=== PATIENT | female | born 1945 | race Caucasian/White ===

== ENCOUNTER 2022-01-13 13:48 | Outpatient (CLI) | payer OTHER, SELFPAY ==
[2022-01-13 16:31] LABS: INR 2.29 (0.91-1.10); Prothrombin Time 25.6 Seconds
== END 2022-01-13 13:49 | disposition home or self-care (01) ==
LOC: LAB 13:52
PROVIDERS: Visit Provider Family Medicine
DX: I48.91 Unspecified atrial fibrillation (principal)
CPT/HCPCS: 36415; 85610

== ENCOUNTER 2024-01-05 12:50 | Outpatient (RCR) | payer OTHER, SELFPAY ==
[2022-02-15 12:04] LABS: INR 1.77 (0.91-1.10)
[2022-02-25 15:55] LABS: INR 2.41 (0.91-1.10); Prothrombin Time 26.6 Seconds
[2022-03-18 11:37] LABS: INR 2.28 (0.91-1.10); Prothrombin Time 25.5 Seconds
[2022-05-12 13:41] LABS: INR 2.38 (0.91-1.10); Prothrombin Time 27.2 Seconds
[2022-06-30 14:04] LABS: INR 2.19 (0.91-1.10); Prothrombin Time 25.5 Seconds
[2022-12-14 14:09] LABS: INR 2.35 (0.91-1.10); Prothrombin Time 26.9 Seconds
[2023-02-09 13:06] LABS: INR 2.44 (0.91-1.10); Prothrombin Time 27.7 Seconds
[2023-03-25 14:27] LABS: INR 2.52 (0.91-1.10); Prothrombin Time 28.4 Seconds
[2023-12-28 12:48] LABS: INR 2.31 (0.91-1.10); Prothrombin Time 27.1 Seconds
[2024-01-05 13:25] LABS: INR 2.67 (0.91-1.10); Prothrombin Time 30.5 Seconds
== END 2024-04-10 14:48 | disposition home or self-care (01) ==
LOC: LAB 12:50
PROVIDERS: Visit Provider Family Medicine
DX: I48.91 Unspecified atrial fibrillation (principal)
CPT/HCPCS: 36415; 85610

== ENCOUNTER 2024-11-22 11:36 | Emergency (ER) | payer OTHER, SELFPAY ==
--- OUTSIDE RECORDS SUMMARY | 2024-10-08 12:00 | XMS_ITS | Encounter Summary ---
Author Organization [facility] Address [address] [address] Care Team Providers Care Cigar Maker Name Role Phone Wilmer Ludwig M.D., M.D. Primary Care Prov ider Unavailable Reason for Visit * Reason Comments VISUAL FIELD TESTING Encounter Details Date Type Department Care Team (Late st Contact Info) Description 10/08/2024 10:00 AM PDT Allied Health/Nurse Visit OPHTHALMOLOGY [address] [place] [address] Sukhi Ortiz [address] [place] [address] VISUAL FIELD TEST Social History Tobacco Use Types Packs/Day Years Used Date Smoking Tobacco: Never Passive Smoke Exposure: Never Smokeless Tobacco: Never Comments:once per week-wine Alcohol Use Standard Drinks/Week Comments Not Currently 1 (1 standard drink = 0.6 oz pur e alcohol) occ Substance Use Types Use/Week Comments No Sex and Gender Information Value Date Recorded Sex Assigned at Not on file Gender Identity Not on file Sexual Orientation Not on file documented as of this encounter Progress Notes * Sukhi Ortiz - 10/08/2024 10:24 AM PDT EXTRACT OPERATOR VISIT Study Being Done: SHARMA VISUAL FIELD 24-2 Patient Name: Saira Fly Belle Age: [age] year old Sex: female Referring Physician: Dr camarillo Verbal/written order per . documented in this encounter Plan of Treatment Upcoming Encounters Date Type Department Care Team (Late st Contact Info) Description 03/05/2025 10:00 AM PDT Office Visit CARDIOLOGY [address] [place] [address] Melanie Osuna (N.P.), N.P. [address] [place] [phone] Pending Results Name Type Priority Associated Diagnoses Date /Time VISUAL FIELD EXAM, EXTENDED Eye Procedures Routine VISUAL FIELD TEST 10/08/2024 10:51 AM PDT documented as of this encounter Visit Diagnoses Diagnosis VISUAL FIELD TEST documented in this encounter Care Teams Cigar Maker Relationship Specialty Start Date End Date Wilmer Ludwig)Richie [address] [phone] PCP - General Family Practice 01/10/14 documented as of this encounter
--- OUTSIDE RECORDS SUMMARY | 2024-10-08 12:45 | XMS_ITS | Encounter Summary ---
Author Organization [facility] Address [address] [place] [address] Care Team Providers Care Hat Conditioner Name Role Phone Wilmer Ludwig) Richie Primary Care Prov ider Unavailable Reason for Visit * Reason Comments OCULAR COHERENCE TOMOGRAPHY Encounter Details Date Type Department Care Team (Late st Contact Info) Description 10/08/2024 10:45 AM PDT Allied Health/Nurse Visit OPHTHALMOLOGY [address] [place] [address] Genna Choudhary [address] [place] [address] SCREENING Social History Tobacco Use Types Packs/Day Years [...] as of this encounter Progress Notes * Genna Choudhary - 10/08/2024 1:29 PM PDT Care Gaps Immunization Care Gaps Covid-19 Immunization Due RSV Immunization Due documented in this encounter Plan of Treatment Upcoming Encounters Date Type Department Care Team (Late st Contact Info) Description 03/05/2025 10:00 AM PDT Office Visit CARDIOLOGY [address] [phone] Melanie Osuna (N.P.), N.P. [address] [place] [phone] Pending Results Name Type Priority Associated Diagnoses Date/Time OCT POSTERIOR SEGMENT BOTH EYES, OPTIC NERVE, INTERP AND RPT (OU) Eye Procedures IPROC Routine SCREENING 10/08/2024 1:29 PM PDT documented as of this encounter Visit Diagnoses Diagnosis SCREENING documented in this encounter Care Teams Hat Conditioner Relationship Specialty Start Date End Date Wilmer Ludwig), Dilma. [address] [phone] PCP - General Family Practice 01/10/14 documented as of this encounter
--- OUTSIDE RECORDS SUMMARY | 2024-10-14 12:00 | XMS_ITS | Encounter Summary ---
Author Organization [facility] Address [address] [place] [address] Care Team Providers Care Government Affairs Fellow Name Role Phone Wilmer Ludwig) Richie Primary Care Prov ider Unavailable Reason for Visit * Reason Comments ABDOMINAL PAIN Since Monday, nausea , Encounter Details Date Type Department Care Team (Late Contact Info) Description 10/14/2024 10:00 AM PDT Office Visit URGENT CARE - [place] [address] [place] [address] [facility] (P.A[facility] P.A. [address] [place] [address] ABDOMINAL PAIN (Primary Dx) Social History Tobacco Use Types Packs/Day Years Used Date Smoking Tobacco: Never Passive Smoke Exposure: Never Smokeless Tobacco: Never Tobacco Cessation:Counseling Given: Not Answered Comments:once per week-wine Alcohol Use Standard Drinks/Week Comments Not Currently 1 (1 standard drink = 0.6 oz pur e alcohol) occ Substance Use Types Use/Week Comments No Sex and Gender Information Value Date Recorded Sex Assigned at Not on file Gender Identity Not on file Sexual Orientation Not on file documented as of this encounter Last Filed Vital Signs Vital Sign Reading Time Taken Comments Blood Pressure 114/61 10/14/2024 9:51 AM PDT Pulse 77 10/14/2024 9:51 AM PDT Temperature 36.4 C (97.6 F) 10/14/2024 9:51 AM PDT Respiratory Rate 20 10/14/2024 9:51 AM PDT Oxygen Saturation 98% 10/14/2024 9:51 AM PDT Inhaled Oxygen Concentration - - Weight 64.4 kg (142 lb) 10/14/2024 9:51 AM PDT Height 160 cm (5' 3) 10/14/2024 9:51 AM PDT Body Mass Index 25.15 10/14/2024 9:51 AM PDT documented in this encounter Progress Notes * Ashok Khan (P.ALamar), P.A. - 10/14/2024 9:23 AM PDT HUMBLE CASTREJON : 1945 PMD: Wilmer Ludwig) Time seen: 9:23 AM 10/14/2024. CC: ABDOMINAL PAIN HPI: Humble Castrejon is a 79 year old female history of Afib on Warfrin, Pacemaker last saw cardiology in08/2024 with complain of left sided abdominal pain x 3 days. had chest pain and shortness of breaththat resolved spontaneously. Symptom is associated with tiredness, decreased appetite, watery diarrhea, mild dry cough, abdominal distention. She is able to pass gas and burp. Denies vomiting, dysuria, fever chills, runny nose congestion; no current chest pain or shortness of breath. Vitals: 10/14/24 0951 BP: 114/61 Pulse: 77 Resp: 20 Temp: 36.4 ??C (97.6 ??F) TempSrc: Temporal SpO2: 98% Weight: 64.4 kg (142 lb) Height: 1.6 m (5' 3) Patient Active Problem List: HTN HYPERLIPIDEMIA HX OF HYSTERECTOMY, TOTAL FHX OF BREAST CANCER MAMMOGRAPHY DONE OUTSIDE IN 2010 Bilat glaucoma. ALLERGIC RHINITIS VITAMIN D DEFICIENCY OSTEOPOROSIS SCREENING COLONOSCOPY COLON POLYP DIVERTICULOSIS OF COLON ATHEROSCLEROSIS AORTA BILATERAL RENAL ARTERY STENOSIS PREDIABETES OVERWEIGHT OSTEOARTHRITIS OF LEFT KNEE SENILE PURPURA DIASTOLIC HEART FAILURE, CHRONIC (HFPEF) OSTEOARTHRITIS OF RIGHT KNEE ATRIAL FIBRILLATION, UNSPECIFIED ANTICOAGULATION MONITORING, INR 2.0-3.0 BILAT PRIMARY OPEN ANGLE GLAUCOMA ATRIAL FIBRILLATION W RAPID VENTRICULAR RESPONSE CKD STAGE 3A (GFR 45-59) OSTEOARTHRITIS OF LEFT HIP HYPOKALEMIA ELEVATED TROPONIN I NOT CURRENT SMOKER HX OF SC, UNSPECIFIED TYPE OSTEOARTHRITIS OF RIGHT FOOT ANEMIA RECURRENT UTI BILAT OPEN ANGLE GLAUCOMA ATYPICAL CHEST PAIN SHORTNESS OF BREATH OSTEOARTHRITIS OF LEFT FOOT ACQUIRED CEREBRAL ATROPHY OSTEOARTHRITIS OF RIGHT HIP Past Medical History: Diagnosis Date HX OF TOTAL HYSTERECTOMY 1981 endometriosis FHX OF BREAST CANCER 08/18/2011 [place]AMMOGRAPHY [place]IDE [place] 201008/18/2011 Glaucoma. 08/18/2011 ALLERGIC RHINITIS 08/18/2011 DUPUYTRENS CONTRACTURE. 08/18/2011 VITAMIN D DEFICIENCY 09/01/2011 SCREENING FOR COLON CANCER 09/16/2011 SCREENING COLONOSCOPY 02/29/2012 SCREENING COLONOSCOPY 02/29/2012 COLON POLYP 02/29/2012 FAMILY STRESS 03/19/2012 HX OF ANEMIA 04/26/2012 DIZZINESS 04/26/2012 ATHEROSCLEROSIS OF AORTA 01/04/2013 STENOSIS OF RENAL ARTERY. 01/04/2013 LEFT PIRIFORMIS SYNDROME 07/05/2013 SKIN LESION 07/05/2013 HX OF CHF 07/29/2013 PREDIABETES 08/12/2013 HYPONATREMIA 01/09/2014 SENILE PURPURA 07/25/2014 ATRIAL FIBRILLATION, UNSPECIFIED 10/21/2015 HTN (HYPERTENSION) HYPERLIPIDEMIA SYNCOPE REVIEW OF SYSTEMS: Review of Systems A 10-point ROS was performed, reviewed, and confirmed by me in this urgent Care. Those systems withpertinent positive or negative responses have been documented in the HPI. All other systems were reviewed and found to be negative or non-contributory. BP 114/61 Pulse 77 Temp 36.4 ??C (97.6 ??F) (Temporal) Resp 20 Ht 1.6 m (5' 3) Wt 64.4 kg (142 lb) SpO2 98% BMI 25.15 kg/m?? Estimated body mass index is 25.15 kg/m?? as calculated from the following: Height as of this encounter: 1.6 m (5' 3). Weight as of this encounter: 64.4 kg (142 lb). Physical Exam Physical Exam Vitals reviewed. Constitutional: General: Patient is not in acute distress. Appearance: Patient is not ill-appearing. HENT: Eye: EXTRAOCULAR MOVEMENTS INTACT. No conjunctival injection, Ear :TMs are normal bilaterally Mouth/Throat: Pharynx: Oropharynx is clear. Cardiovascular: Rate and Rhythm: Normal rate. Pulmonary: Breath sounds: Normal breath sounds. Musculoskeletal: Normal ROM of Extremities no deformities Abdomen: bowel sounds WNL, Soft positive epigastric, left upper quadrant and left lower quadrant and right lower quadrant abdominal tenderness. Negative Rovsing's sign, no peritonitis. Positive left COSTOVERTEBRAL ANGLE TENDERNESS Skin: no rash Neurological: Alert and oriented x 4, GCS 15 URGENT CARE DEPARTMENT COURSE: 12-lead EKG Interpretation by Ashok Khan PA-C: ASSESSMENT MDM 79 years old female history of AFib on warfarin with complaint of left-sided abdominal pain with the associated chest pain shortness of breath, diarrhea and abdominal distention. Shortness of breath and chest pain have resolved spontaneously. Patient's EKG shows AFib RVR with a rate of 178 beats per minute. Patient will be transferred to emergency department for higher level of care and will need to be placed on a monitor. ED physician consulted who accepted patient transfer. DIAGNOSIS/PLAN ABDOMINAL PAIN (primary encounter diagnosis) Plan: URINALYSIS, DIPSTICK, POCT, B-TYPE NATRIURETIC PEPTIDE (BNP), CREATININE, EKG 12 OR MORE LEADS W INT & RPT, ELECTROLYTE PANEL (NA, K, CL, CO2), GLUCOSE, TROPONIN I, HIGH SENSITIVITY, XR CHEST 2 VIEWS, CBC W AUTOMATED DIFFERENTIAL, BUN, LIPASE, LIVER FUNCTION PANEL (TBILI, ALT, ALKP), CT ABD AND PELVIS W CONTRAST, MOUTHWASH: DICYCLOMINE-LIDOCAINE VISC-MYLANTA ORAL SUSP Discharge Instructions: Patient further evaluation, re-evaluation review of lab CT and disposition to be performed by ED physician. Electronically signed by: Familia NINO 10/14/2024 10:46 AM This note was transcribed using computer voice recognition. It is subject to voice recognition/ grammatical errors. documented in this encounter Nursing Notes * Mai Duong (TomyViki Claros - 10/14/2024 10:49 AM PDT @1045-patient transported to ED for higher level of care via wheelchair with at side. MAI OCHOA RN * Keny Stock.VRegine)Aba - 10/14/2024 10:45 AM PDT EKG uploaded, completed and result given to provider waiting orders * Keny StockV.Dorita)Aba - 10/14/2024 10:40 AM PDT Patient unable to complete gi cocktail only had about 25ml * Keny Stock.V.NLamar)Aba - 10/14/2024 9:53 AM PDT LICENSED VOCATIONAL NURSE VISIT NOTES Chief Complaint Patient presents with ABDOMINAL PAIN Since Monday, nausea, BP 114/61 Pulse 77 Temp 36.4 ??C (97.6 ??F) (Temporal) Resp 20 Ht 1.6 m (5' 3) Wt 64.4 kg (142 lb) SpO2 98% BMI 25.15 kg/m?? Outpatient Medications Marked as Taking for the 10/14/24 encounter (Office Visit) with Umah-MgAshok otto (P.A.), P.A. Medication Sig Atorvastatin (LIPITOR) 10 mg Oral Tab Take 1 tablet by mouth daily to lower cholesterol and keep arteries open Lisinopril (PRINIVIL/ZESTRIL) 5 mg Oral Tab Take 1 tablet by mouth daily to control blood pressure and/or prevent strokes and help the heart and kidneys Warfarin 2 mg Oral Tab Take by mouth as directed by Anticoagulation clinic dilTIAZem (CARDIZEM CD) 120 mg Oral 24hr SR Cap Take 1 capsule by mouth 2 times a day Warfarin 2 mg Oral Tab Take 1 and 1/2 tablets by mouth daily except 2 tablets Monday or as directed by the anticoagulation clinic cloNIDine (CATAPRES-TTS 1) 0.1 mg/24 hr TD Weekly Patch Apply 1 Patch to skin every 7 days . Removeold patch before applying the new one dilTIAZem (CARDIZEM) 30 mg Oral Tab Take 1 tablet by mouth up to 3 times a day as needed atrial fibrillation episodes Nitrofurantoin Monohydrate (MACROBID) 100 mg Oral Cap Take 1 capsule by mouth daily Latanoprost (XALATAN) 0.005 % Opht Drop Instill 1 Drop in both eyes daily at bedtime for Glaucoma Dorzolamide-Timolol (COSOPT) 22.3-6.8 mg/mL Opht Drop Instill 1 Drop in both eyes 2 times a day Current Facility-Administered Medications for the 10/14/24 encounter ([facility]) [facility] P.A. Medication Triamcinolone Acetonide Inj 40 mg (KENALOG) Triamcinolone Acetonide Inj 40 mg (KENALOG) Lidocaine (PF) 10 mg/mL (1 %) Inj 2 mg (XYLOCAINE) Lidocaine (PF) 10 mg/mL (1 %) Inj 2 mg (XYLOCAINE) PROACTIVE CARE ACTIONS Proactive Office Encounter Actions: There are no care gaps at this time Proactive Care reviewed with patient. ITZIA MARIA LUISA STOCK SOCIAL WORKER AIDE 9:53 AM documented in this encounter Plan of Treatment Upcoming Encounters Date Type Department Care Team (Late st Contact Info) Description 03/05/2025 10:00 AM PDT Office Visit CARDIOLOGY [address] [place] [address] Melanie Osuna (N.P.), N.P. [address] [place] [address] Scheduled Orders Name Type Priority Associated Diagnoses Orde r Schedule TROPONIN I, HIGH SENSITIVITY Lab STAT ABDOMINAL PAIN Ordered: 10/14/2024 XR CHEST 2 VIEWS Imaging STAT ABDOMINAL PAIN Expected: 10/14/2024, Expires: 04/12/2025 documented as of this encounter Procedures Procedure Name Priority Date/Time Associated Diagnosis Comments LIVER FUNCTION PANEL (TBILI, ALT, ALKP) STAT 10/22/2024 1:16 PM PDT ABDOMINAL PAIN BUN STAT 10/22/2024 1:16 PM PDT ABDOMINAL PAIN LIPASE STAT 10/22/2024 1:16 PM PDT ABDOMINAL PAIN CREATININE STAT 10/22/2024 1:16 PM PDT ABDOMINAL PAIN ELECTROLYTE PANEL (NA, K, CL, CO2) STAT 10/22/2024 1:16 PM PDT ABDOMINAL PAIN CBC W AUTOMATED DIFFERENTIAL STAT 10/22/2024 1:16 PM PDT ABDOMINAL PAIN B-TYPE NATRIURETIC PEPTIDE (BNP) Routine 10/22/2024 1:16 PM PDT ABDOMINAL PAIN WBC AUTO DIFF STAT 10/22/2024 1:16 PM PDT GLUCOSE STAT 10/22/2024 1:16 PM PDT ABDOMINAL PAIN EKG 12 OR MORE LEADS W INT & RPT STAT 10/14/2024 10:30 AM PDT ABDOMINAL PAIN URINALYSIS, DIPSTICK, POCT Routine 10/14/2024 10:11 AM PDT ABDOMINAL PAIN documented in this encounter Results * (ABNORMAL) WBC AUTO DIFF (10/22/2024 1:16 PM PDT) NEUTROPHILS %, AUTOMATED COUNT 79.3 [facility] LYMPHOCYTES %, AUTOMATED COUNT 10.7 [facility] MONOS %, AUTO 6.1 [facility] EOSINOPHILS %, AUTOMATED COUNT 1.6 [facility] BASOPHILS %, AUTOMATED COUNT 0.6 [facility] IMMATURE GRANULOCYTES %, AUTOMATED COUNT 2 [facility] RBC NUCLEATED AUTO COUNT, BLD 0 <=0 % [facility] NEUTROPHILS, ABSOLUTE, AUTOMATED COUNT 8.50(H) 1.80 - 7.70 x1000/mcL [facility] LYMPHOCYTES, AUTOMATED COUNT 1.15 1.00 - 3.60 x1000/mcL [facility] MONOCYTES, AUTOMATED COUNT 0.65 0.10 - 1.00 x1000/mcL [facility] EOSINOPHILS, AUTOMATED COUNT 0.17 0.00 - 0.70 x1000/mcL [facility] BASOPHILS, AUTOMATED COUNT 0.06 0.00 - 0.20 x1000/mcL [facility] IMMATURE GRANULOCYTES, AUTOMATED COUNT 0.18(H) 0.01 - 0.09 x1000/mcL [facility] BLOOD / Unknown 10/22/2024 1 :16 PM PDT Narrative [facility] - 10/22/2024 7:50 PM PDT [facility] ACCN: [id number] Ashok Batres (P.A.) Rico-Mgborogrichardu P. A. HEMATOLOGY [facility] [address] [place] [address] * LIVER FUNCTION PANEL (TBILI, ALT, ALKP) (10/22/2024 1:16 PM PDT) ALT 14 <=54 U/L [facility] ALKALINE PHOSPHATASE 50 <=125 U/L [facility] BILIRUBIN, TOTAL 0.6 <=1.0 mg/dL [facility] BLOOD / Unknown 10/22/2024 1 :16 PM PDT Narrative [facility] - 10/22/2024 7:47 PM PDT [facility] ACCN: [id number] Ashok Tocannamariekwu (P.A.) Umah-Mgborogwu P. A. SERUM CHEMISTRY [facility] [address] [address] * LIPASE (10/22/2024 1:16 PM PDT) LIPASE 39 <=58 U/L [facility] BLOOD / Unknown 10/22/2024 1 :16 PM PDT Narrative [facility] - 10/22/2024 7:47 PM PDT [facility] ACCN: [id number] Ashok Kitchenkwu (P.A.) Umah-Mgborogwu P. A. SERUM CHEMISTRY Performing Organization Address City/[facility]/ZIP Co de Phone Number [facility] [address] [place] [place] [address] * BUN (10/22/2024 1:16 PM PDT) BUN 9 <=18 mg/dL [facility] BLOOD / Unknown 10/22/2024 1 :16 PM PDT Narrative [facility] - 10/22/2024 7:40 PM PDT [facility] ACCN: [id number] Ashok Tocannamariekwu (P.A.) Umah-Mgborogwu P. A. SERUM CHEMISTRY [facility] [address] [place] [address] * (ABNORMAL) CBC W AUTOMATED DIFFERENTIAL (10/22/2024 1:16 PM PDT) Pathologist [facility] WBC'S AUTO 10.7 4.0 - 11.0 x1000/mcL [facility] RBC, AUTO 3.75 3.70 - 5.20 Mill/mcL [facility] HGB 10.5(L) 11.5 - 16.0 g/dL [facility] HCT, AUTO 31.4(L) 35.0 - 47.0 % [facility] MCV 83.7 81.0 - 99.0 fL [facility] MCH 28.0 25.0 - 35.0 pg/cell [facility] MCHC 33.4 30.0 - 35.0 g/dL [facility] RDW, BLOOD 14.3 11.5 - 16.0 % [facility] PLATELETS, AUTOMATED COUNT 569(H) 130 - 400 x1000/mcL [facility] BLOOD / Unknown 10/22/2024 1 :16 PM PDT Narrative [facility] - 10/22/2024 7:50 PM PDT [facility] ACCN: [id number] Ashok Batres (P.A.) Rico-Mgborogwu P. A. HEMATOLOGY [facility] [address] [place] [address] * GLUCOSE (10/22/2024 1:16 PM PDT) [facility] GLUCOSE, RANDOM 107 70 - 140 mg/dL [facility] BLOOD / Unknown 10/22/2024 1 :16 PM PDT Narrative [facility] - 10/22/2024 7:40 PM PDT [facility] ACCN: [id number] Ashok Lorenzou (P.A.) Umah-Mgborogwu P. A. SERUM CHEMISTRY [facility] [address] [place] [address] * (ABNORMAL) ELECTROLYTE PANEL (NA, K, CL, CO2) (10/22/2024 1:16 PM PDT) SODIUM 127(L) 135 - 145 mEq/L [facility] POTASSIUM 3.8 3.5 - 5.0 mEq/L [facility] CHLORIDE 93(L) 101 - 111 mEq/L [facility] CO2 22 21 - 31 mEq/L [facility] BLOOD / Unknown 10/22/2024 1 :16 PM PDT Narrative [facility] - 10/22/2024 7:40 PM PDT [facility] ACCN: [id number] Ashok Batres (P.A.) JamarMgtobyogarmani P. A. SERUM CHEMISTRY [facility] [address] [employer] [facility] [place] [address] * CREATININE (10/22/2024 1:16 PM PDT) CREATININE 0.91 <=1.10 mg/dL [facility] EGFR, CREATININE-BASED FORMULA (CKD-EPI 2020) 64 >=60 mL/min/BS A [facility] Comment: GFR estimate is by the CKD-EPI 202 equation which uses age, sex, and serum creatinine. GFR estimate is less reliable if on dialysis or if acute kidney injury. Additional advice for the provider is available in Renal Failure Risk Assessment below. CKD Categorization by GFR & ACR (urine Albumin/Creatinine Ratio) GFR >3 months ACR <30(A1) ACR 30-<300(A2) ACR 300+(A3) >=90 CKD1 A2 or * CKD1 A3 60-<90 CKD2 A2 or * CKD2 A3 45-<60 CKD3a A1 or * CKD3a A2 CKD3 A3 30-<45 CKD3b A1 CKD3b A2 CKD3 A3 15-<30 CKD4 A1 CKD4 A2 CKD4 A3 <15 CKD5 A1 CKD5 A2 CKD5 A3 * or may label a bnormal kidney function or p roteinuria as appropriate. BLOOD / Unknown 10/22/2024 1 :16 PM PDT Narrative [facility] - 10/22/2024 7:42 PM PDT [facility] ACCN: [id number] Ashok Gisel (P.A.) Umaide-Mgborogwu P. A. SERUM CHEMISTRY Performing Organization Address [facility] de Phone Number [facility] [address] [address] * (ABNORMAL) B-TYPE NATRIURETIC PEPTIDE (BNP) (10/22/2024 1:16 PM PDT) B TYPE NATRIURETIC PEPTIDE 820(H) <=99 pg/mL [facility] Comment: Less than 100: Not likely heart failure 100-500: Indeterminate range Greater than 500: Heart failure likely For Indeterminate results, one must consider the following: Baseline BNP value elevated due to stable underlying dysfunction; right ventricular failure present from COR Pulmonale; Acute pulmonary embolism or renal failure. BLOOD / Unknown 10/22/2024 1 :16 PM PDT Narrative [facility] - 10/22/2024 7:27 PM PDT [facility] ACCN: [id number] Ashok Gisel (P.A.) Umaide-Mgborogwu P. A. SERUM CHEMISTRY Performing Organization Address [facility] de Phone Number [facility] [address] [employer] [place] [address] * EKG 12 OR MORE LEADS W INT & RPT (10/14/2024 10:30 AM PDT) VENTRICULAR RATE 178 BPM SCAL EKG INTERFACE ATRIAL RATE 182 BPM SCAL EKG INTERFACE LA INTERVAL 146 ms SCAL EKG INTERFACE QRS INTERVAL 74 ms SCAL EK G INTERFACE QT INTERVAL 260 ms SCAL EKG INTERFACE QT CORRECTED 447 ms SCAL EK G INTERFACE FRONTAL AXIS: P 60 degrees SCAL EKG INTERFACE RIGHT AXIS 41 degrees SCAL EKG INTERFACE FRONTAL AXIS:T 259 degrees SCAL EKG INTERFACE DIAGNOSIS LINES Afib RVR Marked ST abnormality, possible inferior subendocardial injury Abnormal ECG SCAL EKG INTERFACE 10/14/2024 10:3 0 AM PDT 10/17/2024 3:38 PM PDT Ashok Batres (P.A.) JamarMgclarita P. A. CV EKG SCAL EKG INTERFACE * URINALYSIS, DIPSTICK, POCT (10/14/2024 10:11 AM PDT) Narrative Keny Stock (L.V.N.), L.V.N. - 10/14/2024 10:11 AM PDT URINE DIPSTICK, POCT GLUCOSE: Neg Reference Range: Negative KETONES: 15 mg/dL Reference Range: Negative SP. GRAVITY: 1.015 Reference Range: 1.005-1.030 BLOOD: Neg Reference Range: Negative PH: 6.5 Reference Range: 5.0 - 8.0 PROTEIN: 100 mg/dL (2+) Reference Range: Negative/Trace NITRITE: Negative Reference Range: Negative LEUKOCYTES: Negative Reference Range: Negative LOT#:[id number] Expiration Date:09/30/25 Date/Time: 10/14/2024 10:11 AM Performed by: KENY STOCK [facility] [address] [address] TOBACCO BALER: [facility] Med Office - Yolanda Prescott D.O. Ashok Batres (P.A.) Bill P. A. POCT documented in this encounter Visit Diagnoses Diagnosis ABDOMINAL PAIN- Primary documented in this encounter Administered Medications Inactive Administered Medications - up to 3 most recent administrations Medication Order MAR Action Action Date Dose Rate Site Mouthwash:Stlmtil-Zlkczdqbwun-Jzd ocaine Visc. Oral Susp 50 mL 50 mL, Oral, ONE TIME, 1 dose, On Mon10/14/24 at 1030, 30:10:10 ml Mylanta:Dicyclomine:Lidocaine oral suspension Given 10/14/2024 10:32 AM PDT 50 mL Selina gallardo documented in this encounter Care Teams Government Affairs Fellow Relationship Specialty Start Date End Date Wilmer Ludwig M.D., M.D. [address] [phone] PCP - General Family Practice 01/10/14 documented as of this encounter
--- OUTSIDE RECORDS SUMMARY | 2024-10-14 12:54 | XMS_ITS | Encounter Summary ---
Author Organization [facility] Address [address] [place] [address] Care Team Providers Care Inventory Technician Name Role Phone Wilmer Ludwig M.D., M.D. Primary Care Prov ider Unavailable Reason for Referral * (Emergency) Specialty Diagnoses / Procedures Referred By Contac t Referred To Contact [facility] [address] [address] [place] [address] Phone: [phone] Referral ID Status Reason Start Date Expiration Date V isits Requested Visits Authorized Specialty Services Required Question Answer Result Release to patient? Immediate Comments Reason for Consult: afib rvr, pacemaker * (Emergency) Specialty Diagnoses / Procedures Referred By Contac t Referred To Contact [facility] [address] [address] [place] [address] Phone: [phone] Referral ID Status Reason Start Date Expiration Date V isits Requested Visits Authorized Specialty Services Required Question Answer Result Release to patient? Immediate Comments Reason for Consult: ATRIAL FIBRILLATION WITH RAPID VENTRICULAR RESPONSE with nonsustained run of VT Reason for Visit * Reason Comments CHEST PAIN Patient presented to Urgent Care for abdominal and chest pain and SOB. Initially with HR in 70s, EKG found to be in a fib with RVR with a rate of 178, BP stable (Pt with h/o a fib on coumadin). Labs and imaging ordered by Urgent Care. No meds given. BT [id number] ABDOMINAL PAIN Encounter Details Date Type Department Care Team (Latest Contact Info) Description 10/14/2024 10:54 AM PDT - 10/21/2024 5:11 PM PDT Hospital Encounter [facility] [id number] [place] [address] Fariha Hermosillo (Richie), M.D. [address] [place] [address] Catalino Shine), M.DLamar [address] [place] [address] Eder Farnsworth (D.O.), D.O. [address] [place] [address] Nicolle Peace (D.OLamar), D.O. [address] [place] [address] ATRIAL FIBRILLATION W RAPID VENTRICULAR RESPONSE Discharge Disposition: Home or Self Care. Social History Tobacco Use Types Packs/Day Years [...] Sign Reading Time Taken Comments Blood Pressure 129/62 10/21/2024 3:44 PM PDT Pulse 62 10/21/2024 3:44 PM PDT Temperature 36.1 C (97 F) 10/21/2024 3:44 PM PDT Respiratory Rate 20 10/21/2024 3:44 PM PDT Oxygen Saturation 96% 10/21/2024 3:44 PM PDT Inhaled Oxygen Concentration - - Weight 64.1 kg (141 lb 5 oz) 10/19/2024 5:00 AM PDT Height 162.6 cm (5' 4) 10/21/2024 11:00 AM PDT Body Mass Index 24.26 10/19/2024 5:00 AM PDT documented in this encounter Discharge Diagnoses Diagnosis HX OF VT, UNSPECIFIED TYPE ANTICOAGULATION MONITORING, INR 2.0-3.0 IP referral for afib documented in this encounter Discharge Summaries * Yousif Garduno (Pharm.D), PHARM.D. - 10/21/2024 4:30 PM PDT Inpatient Pharmacy Anticoagulation Discharge Progress Note Saira Belle [id number] Height: Ht Readings from Last 1 Encounters: 10/21/24 1.626 m (5' 4) Weight: Wt Readings from Last 1 Encounters: 10/19/24 64.1 kg (141 lb 5 oz) Admit Date/Time: 10/14/2024 10:54 AM Admitting Diagnosis: AFIB RVR,LEUKOCYTOSIS Indication: Atrial Fibrillation Anticoagulation: Warfarin: Warfarin Goal INR: INR of 2-3 Medications that may affect anticoagulation therapy: Drug-Drug Interaction: amio,ator,panto Labs: INR 3.1 (H) 10/21/2024 HGB 9.7 (L) 10/21/2024 HCT AUTO 28.7 (L) 10/21/2024 PLT'S AUTO 494 (H) 10/21/2024 Assessment/Plan: INR above desired range. Warfarin dose: Today's warfarin dose 1 mg. Day of Week Date Tablets (#) Total Dose (mg) Monday10/21/2024 1 mg dose given today at the hospital. Monday10/22/2024 Dose to be determined when lab result available. Call [phone] for all further warfarin dosing and follow up lab instructions. --> Take warfarin in the evening after 6 PM or at bedtime. N/A --> Next Lab Date: 10/22/2024, (Before noon if possible). Patient to be discharged to home (on Warfarin prior to admission). Patient prescribed Warfarin 2 mgtablets. Warfarin 1mg to be given today prior to discharge. Pt instructed to go to lab on 10/22/24 for INR, and anticoagulation services will follow. Patient to call Outpatient Anticoagulation Servicethe day following discharge. Outpatient Anticoagulation Services at [facility] [place] (including [place]) to follow patient upon discharge. Next INR: Patient instructed to go to the nearest [place] facility to draw next INR on 10/22/24. Electronically signed by YOUSIF GARDUNO PHARMD 10/21/2024 4:31 PM Inpatient Pharmacy * Nicolle Peace (D.O.), D.O. - 10/21/2024 3:32 PM PDT Images from the original note were not included. [facility]NAL [facility] Patient: Saira Belle Admission Date: 10/14/2024 : 1945 Discharge Date: 10/21/2024 Discharge Attending: Keyon Jeffries) Age: [age] year old PCP: Wilmer Ludwig) DISCHARGE SUMMARY PRINCIPAL DISCHARGE DIAGNOSIS WITH BRIEF SUMMARY (SEE HOSPITAL COURSE BELOW FOR DETAILS): Saira Belle is a 79 year old female with a past medical history that includes Atrial Fibrillation on Warfarin, SSS s/p PPM, HFpEF (EF 55-60%), HTN, who was admitted on 10/14/2024 for ATRIAL FIBRILLATION W RAPID VENTRICULAR RESPONSE likely 2/2 dehydration 2/[address] showed mild wall thickening of the colon that may be related to underdistention versus mild colitis. Patient was treated with IV antibiotics and was started on Amiodarone and increased Carvedilol. Upon discharge, patient's heart rate was rate controlled with stable vitals and labs. Patient understands and agrees to be discharged home Medical [place] of Care: [place] medical concerns: atrial fibrillation with rapid ventricular response Code Status Status Date Full Code MonOct 14, 2024 3:08 PM . Further discussion about life care planning (LCP) needed: No PCP please follow up on: - Atrial fibrillation Discharge Information REASONS FOR CHANGED OR NEW OR HELD MEDICATIONS: - Discontinued Lisinopril for hyponatremia and bilateral renal artery stenosis. - Increase Carvedilol to 12.5 mg PO BID. - Continue Amiodarone 400 mg PO BID x 7 more days. Then, decrease to Amiodarone 200 mg PO QD TEST RESULTS PENDING AT TIME OF DISCHARGE: Unresulted Labs (In-Process and Collected) None Rad (In Process) (Last 50 days) None PATHOLOGY/BIOPSY/OTHER PENDING RESULTS NOT DISPLAYED ABOVE: none OTHER FINDINGS REQUIRING FOLLOWUP OR FURTHER WORKUP OUTPATIENT: none OUTPATIENT TESTS/REFERRALS ORDERED PRIOR TO DISCHARGE: none DME EQUIPMENT (INCLUDING OXYGEN): none Code Status Status Date Full Code MonOct 14, 2024 3:08 PM Readmission Score (LACE) Readmission Score (LACE) Total: 13 L-LENGTH OF STAY SCORE: 5 A-EMERGENT ADMISSION SCORE: 3 C-CHARLSON COMORBIDITY SCORE: 5 E-NUMBER OF ED VISITS SCORE: 0 Consultants: INPATIENT INTERNAL MEDICINE CONSULT INPATIENT CARDIOLOGY CONSULT Primary Discharge Diagnosis: ATRIAL FIBRILLATION W RAPID VENTRICULAR RESPONSE Discharge Diagnosis: Active Hospital Problems HX OF VT, UNSPECIFIED TYPE ANTICOAGULATION MONITORING, INR 2.0-3.0 IP referral for afib ATRIAL FIBRILLATION, UNSPECIFIED DIASTOLIC HEART FAILURE, CHRONIC (HFPEF) ATHEROSCLEROSIS AORTA BILATERAL RENAL ARTERY STENOSIS Renal ultrasound 11/02/12 from [place]: 1. Unable to see the origin of the left renal artery due to calcification. There are elevated velocities in the left renal artery suggestion a hemodynamically significant stenosis. If clinically indicated, an angiogram with intent to treat could be considered. 2. Normal ultrasound appearance of the kidneys, bilaterally. Cardiac MRI performed on 11/02/12 in [place]: indication: severe Hypertension with suspected severe concentric hypertrophy, assess muscle mass. Rule out renal artery stenosis. result of cardiac MRI with normal EF at 69%, normal muscle mass and mass index, there is no evidence of concentric hypertrophy. There is no evidence of hypertrophic cardiomyopathy and no compaction....normal right Ventricular size and systolic function....abdomnial aorta with mild atheromatous changes, there is no abdominal aortic aneurysm...mild right renal artery stenosis, likely moderate renal artery stenosis. DIVERTICULOSIS OF COLON HYPERLIPIDEMIA HTN Discontinued mazxide during hospitalization Last Admit Date: 04/24/2012 due to Orthostatic hypotension - started metoprolol. Metoprolol changed to carvedilol 10/2012 while in [place] for uncontrolled Hypertension Start hydrochlorothiazide 12.5 mg 05/22/2012 Cardiac MRI performed on 11/02/12: indication: severe Hypertension with suspected severe concentric hypertrophy, assess muscle mass. Rule out renal artery stenosis. result of cardiac MRI with normal EF at 69%, normal muscle mass and mass index, there is no evidence of concentric hypertrophy. There is no evidence of hypertrophic cardiomyopathy and no compaction....normal right Ventricular size and systolic function....abdomnial aorta with mild atheromatous changes, there is no abdominal aortic aneurysm...mild right renal artery stenosis, likely moderate renal artery stenosis. Resolved Hospital Problems (Principal) ATRIAL FIBRILLATION W RAPID VENTRICULAR RESPONSE Date Resolved: 10/21/2024 Admission Condition: Stable Discharge Condition: doing well Complications: None. Functional Status: ADLs independent Core Measures This patient does NOT have HF - No further patient instructions/education needed. This patient did NOT have a VT during this hospital admission. No further patient instructions/education needed. This patient does NOT have Pneumonia. No further patient instructions/education needed. This patient did NOT have a Stroke during this hospital admission. No further patient instruction/education needed. This patient will go home on warfarin Warfarin Patient Discharge Instructions and warfarin dosing will be given and documented by Pharmacy prior to discharge. Is this patient a NEW start on warfarin? No. This patient IS NOT a new start on warfarin. Tobacco cessation : is not applicable. Patient has never smoked. Progress Note & Physical Exam at Discharge Subjective: Patient states she is feeling better and nausea/bloating have resolved, cough/loose stools improved. Denies chest pain, palpitations, shortness of breath, headache, dizziness, or abdominal pain. Vitals: 10/21/24 0840 10/21/24 1100 10/21/24 1143 10/21/24 1544 BP: 128/65 BP Patient Position: LYING BP Location: RA-RIGHT ARM RA-RIGHT ARM Pulse: 77 75 Resp: 18 20 Temp: 36.4 ??C (97.5 ??F) 36.1 ??C (97 ??F) SpO2: 94% 92% 96% Weight: Height: 1.626 m (5' 4) General: alert, well appearing, and in no distress, seated in chair next to bed Lungs: normal effort, clear to auscultation, no crackles or wheezing CVS: irregularly irregular, no murmurs Abdomen: soft, nondistended, no masses, nontender, no rebound tenderness, no guarding Neurologic:alert, oriented, normal speech, no focal findings or movement disorder noted Extremities: peripheral pulses normal, +1 bilateral lower extremity edema Diagnostics Last Labs CBC Prior Results Recent Labs 10/21/2443610/20/24 045 WBC 8.8 9.4 NEUT 79.6 82.5 HGB 9.7* 10.0* HCT 28.7* 30.0* PLT 494* 435* Recent Labs 10/21/2443610/20/24 0456 10/19/24 0453 WBC 8.8 9.4 11.3* HGB 9.7* 10.0* 10.2* HCT 28.7* 30.0* 29.6* PLT 494* 435* 370 NEUT 79.6 82.5 84.0 LYMPH 10.5 0.92* 7.5 0.70* 6.7 0.75* MONO 0.47 5.4 0.61 6.5 0.62 5.5 BASO 0.06 0.07 0.08 BASOPC 0.7 0.7 0.7 EOS 3.2 0.28 2.1 0.20 2.4 0.27 MCV 83.2 83.6 84.3 RBC 3.45* 3.59* 3.51* ANC 6.98 7.74* 9.47* IGRANPC 1 1 1 IGRAN 0.05 0.07 0.08 WBC (x1000/mcL) Date Value 10/21/2024 8.8 10/20/2024 9.4 10/19/2024 11.3 (H) HGB (g/dL) Date Value 10/21/2024 9.7 (L) 10/20/2024 10.0 (L) 10/19/2024 10.2 (L) PLT (x1000/mcL) Date Value 10/21/2024 494 (H) 10/20/2024 435 (H) 10/19/2024 370 Electrolytes Prior Results Recent Labs 10/21/24 0437 10/20/24 2327 10/20/24 1207 10/20/24 0459 NA 127* 125* 123* < > 126* K 3.6 3.5 3.9 < > 3.6 CL 96* 94* 92* < > 97* CO2 22 22 20* < > 21 BUN 8 -- -- 6 CR 0.73 -- -- 0.54 GFR 83 -- -- 93 MG 2.3 -- -- 1.6* PHOS 2.6* -- -- -- < > = values in this interval not displayed. NA (mEq/L) Date Value 10/21/2024 125 (L) 10/21/2024 127 (L) 10/20/2024 123 (L) K (mEq/L) Date Value 10/21/2024 3.5 10/21/2024 3.6 10/20/2024 3.9 CR (mg/dL) Date Value 10/21/2024 0.73 10/20/2024 0.54 10/19/2024 0.69 Liver Function Prior Results No results for input(s): TBILI, ALKP, ALT, AST, LIPASE in the last 72 hours. TBILI (mg/dL) Date Value 10/14/2024 1.3 (H) 06/02/2023 0.9 10/26/2022 0.9 ALT (U/L) Date Value 10/14/2024 15 11/09/2023 14 06/02/2023 18 AST (U/L) Date Value 10/14/2024 20 10/26/2022 17 08/26/2022 21 LIPASE (U/L) Date Value 10/14/2024 30 06/02/2023 54 08/26/2022 43 Cardiac Prior Results No results for input(s): TROP in the last 72 hours. No results for input(s): BNP in the last 72 hours. BNP (pg/mL) Date Value 10/16/2024 464 (H) 10/14/2024 1,392 (H) 08/26/2022 233 (H) Other Prior Results No results for input(s): LACTATE in the last 72 hours. Recent Labs 10/21/24 0437 10/20/24 0459 INR 3.1* 3.1* No results for input(s): DDIMER in the last 72 hours. Lipid Panel: CHOL 176 11/09/2023 TRIG 108 11/09/2023 HDL 69 11/09/2023 LDL CALC 88 11/09/2023 LDL 68 04/08/2021 CHOL/HDL 2.6 11/09/2023 TRIGLYCERIDE, NONFASTING 96 04/08/2021 Hemoglobin A1c: HGBA1C 5.8 11/09/2023 Albumin: PREALBUMIN 21 04/13/2021 ALB 2.4 (L) 10/15/2024 Urinalysis: No results for input(s): USG, ULEUKESTER, UNITRITE, UPROTEIN, UAGLU, UKET, UROBILINOGEN, UABILI, UAHGB, UWBC, URBC, UEPITH, UBACT, UPH in the last 72 hours. INR (no units) Date Value 10/21/2024 3.1 (H) 10/20/2024 3.1 (H) 10/19/2024 2.9 (H) Microbiology Results ID Description Status Collection Date/Time [id number] BLOOD CULTURE Final result 10/14/24 1555 Result Value Flag Comment FINAL RESULT No growth at 5 days. [id number] BLOOD CULTURE Final result 10/14/24 1614 Result Value Flag Comment FINAL RESULT No growth at 5 days. [id number] CLOSTRIDIUM DIFFICILE GDH AG, TOXINS A, B W REFLEX TO PCR Final result 10/15/24 1011 Result Value Flag Comment CLOSTRIDIOIDES (CLOSTRIDIUM) DIFFICILE AG AND TOXINS A+B, STOOL Negative A finding of ???Indeterminate??? represents discrepant immunoassay results obtained for GDH (antigen specific to C. difficile) and toxin production. Molecular testing (nucleic acid amplification) will follow to confirm results. [id number] BACTERIAL GI PANEL (SALMONELLA, SHIGELLA/EIEC, CAMPYLOBACTER, SHIGA TOXIN DNA), STOOL, MULTIPLEX PCR Final result 10/14/24 2238 Result Value Flag Comment SALMONELLA SPECIES DNA, STOOL, QL, PCR Not Detected SHIGELLA SP+EIEC DNA, STOOL, QL, PCR Not Detected CAMPYLOBACTER COLI/JEJUNI DNA, STOOL, QL, PCR Not Detected SHIGA TOXIN GENES, PCR Not Detected A Not Detected result may occur if the target nucleic acid concentration is below the limit of detection. The DNA test does not distinguish between Shigella species and Enteroinvasive E. coli (EIEC). Shiga toxin can be produced by Enterohemorrhagic E. coli (EHEC), Shigella dysenteriae, and rarely, other Enterobacteriaceae. If SHIGA TOXIN GENES is Detected but SHIGELLA SP+EIEC DNA is Not Detected: most consistent with EHEC (toxin-related). Antibiotics should be avoided because treatment may increase the risk of developing hemolytic uremic syndrome. If SHIGELLA SP+EIEC DNA is Detected but SHIGA TOXIN GENES is Not Detected: most consistent with Shigella or EIEC infection even if culture is negative. If symptomatic, consider treatment with antibiotics. If SHIGELLA SP+EIEC DNA is Detected and SHIGA TOXIN GENES is Detected: most consistent with Shigella dysenteriae. If symptomatic, consider treatment with antibiotics. A reflex stool culture for susceptibility testing will be performed for PCR positive (a) Salmonella if patient is <4 years old, or >= 51 years old, and (b) Shigella. See culture report. Imaging: XR CHEST 1 VIEW Narrative: CLINICAL HISTORY: Reason: hypoxia COMPARISON: Impression: FINDINGS/IMPRESSION: Pacemaker and leads remain in place. There is some haziness of the chest, likely due to the presence of bilateral pleural effusion. Retrocardiac left lower lung cannot be adequately assessed because of the overlying heart shadow. Lungs are clear otherwise. Heart size is in the upper limits of normal. This report electronically signed by Justyn Ferrari on 10/20/2024 6:36 AM Transthoracic Echo, Limited (10/14/2024) - Left Ventricle: Normal systolic function with an estimated EF of 55 - 60%. No regional wall motion abnormalities observed. - IVC/SVC: Normal (<2.1 cm) IVC size with greater than 50% collapse, estimated right atrial pressure of 3 mmHg (normal). CT Abdomen and Pelvis w/o Contrast (10/14/2024) IMPRESSION: - Mild wall thickening of the colon most pronounced involving the transverse and descending colon. This may be related to underdistention versus mild colitis. No bowel obstruction or free air. - Colonic diverticulosis. - Mild nonspecific bibasilar lung opacities which may reflect atelectasis versus infiltrates with small right and trace left layering pleural effusions. - Arterial atherosclerosis. Chest XR (10/14/2024) FINDINGS/IMPRESSION: - No interval change. There is unchanged left chest wall pacemaker. The lungs remain clear. There is unchanged slightly elevated right hemidiaphragm. No pleural effusions are seen. The cardiomediastinal silhouette is normal. - There is unchanged arteriosclerosis of the aortic knob. TRANSTHORACIC ECHO, LIMITED (TTE) [[id number]] 05/23/2023 INTERPRETATION SUMMARY: - Limited study for EF - Left Ventricle: Left ventricle size is normal. Mild septal thickening. Normal systolic function with an estimated EF of 55 - 60%. - Right Ventricle: Right ventricle size is normal. Normal systolic function. - Aortic Valve: Mild aortic regurgitation. FINDINGS: - Left Ventricle Left ventricle size is normal. Mild septal thickening. Normal systolic function with an estimated EF of 55 - 60%. - Right Ventricle Right ventricle size is normal. Normal systolic function. - Left Atrium Left atrium size is normal. - Right Atrium Right atrium size is normal. - Aortic Valve Mild aortic regurgitation. No aortic stenosis. - Mitral Valve Trace mitral regurgitation. - Pulmonic Valve Not well visualized. - Ascending Aorta The sinus of Valsalva measures 3.5 cm (Z-score 1.10). I have educated the patient and/or available/appropriate family/surrogate regarding their diagnoses, disease process, prognoses, and plan of care. Time spent examining patient, discussing with patient/family regarding hospital course, chart review, reconciling medications and discharge planning exceeded 30 minutes. [Copy everything from this point down to the discharge instructions] Your Discharge Summary To Saira Belle, I have enclosed information important to your continued recovery including medication changes, dietrecommendations, activity restrictions, and follow-up appointment dates. Please review them thoroughly and ask me or your nurse any questions before leaving the hospital. MY INFORMATION Name: Saira Belle Admit Date: 10/14/2024 Discharge Date: 10/21/2024 Why I was admitted to the hospital: ATRIAL FIBRILLATION W RAPID VENTRICULAR RESPONSE Your main physician while you were in the hospital (attending physician) was Dr. Keyon Jeffries. WHO DO I CALL FOR HELP AFTER I LEAVE THE HOSPITAL? If you have medical problems or concerns after you go home and before you see your doctor, please call our [place] Discharge Nurse advice service at This service is available seven days a week, 24 hours a day. After you follow up with Wilmer Ludwig), if you have medical concerns, please call the appointment center at [place]: . Have your [place] card handy. MY MEDICATIONS These medication directions may be different from what you have been doing at home and different from how your current medication bottles read. Be assured that your physicians who care for you in clinic will be able to see this list. Current Discharge Medication List STOP taking these medications Lisinopril 5 mg Tab Commonly known as: PRINIVIL/ZESTRIL START taking these medications Morning Afternoon Evening Bedtime As Needed Amiodarone 200 mg Tab Commonly known as: PACERONE Last time this was given: October 21, 2024 8:16 AM Start taking on: October 21, 2024 Take 2 tablets by mouth 2 times a day for 7 days, THEN 1 tablet daily for 60 days. Carvedilol 12.5 mg Tab Commonly known as: COREG Last time this was given: October 21, 2024 8:16 AM Take 1 tablet by mouth 2 times a day CONTINUE taking these medications Morning Afternoon Evening Bedtime As Needed Atorvastatin 10 mg Tab Commonly known as: LIPITOR Last time this was given: October 21, 2024 8:16 AM Take 1 tablet by mouth daily to lower cholesterol and keep arteries open cloNIDine 0.1 mg/24 hr Weekly patch Commonly known as: CATAPRES-TTS 1 Last time this was given: October 19, 2024 10:37 AM Apply 1 Patch to skin every 7 days . Remove old patch before applying the new one * dilTIAZem 30 mg Tab Commonly known as: CARDIZEM Last time this was given: Ask your nurse or doctor Take 1 tablet by mouth up to 3 times a day as needed atrial fibrillation episodes * dilTIAZem 120 mg 24hr sr cap Commonly known as: CARDIZEM CD Last time this was given: Ask your nurse or doctor Take 1 capsule by mouth 2 times a day Dorzolamide-Timolol 22.3-6.8 mg/mL Drop Commonly known as: COSOPT Last time this was given: October 21, 2024 8:17 AM Instill 1 Drop in both eyes 2 times a day Latanoprost 0.005 % Drop Commonly known as: XALATAN Last time this was given: October 20, 2024 8:12 PM Instill 1 Drop in both eyes daily at bedtime for Glaucoma Nitrofurantoin Monohydrate 100 mg Cap Commonly known as: MACROBID Take 1 capsule by mouth daily * Warfarin 2 mg Tab Last time this was given: Ask your nurse or doctor Take 1 and 1/2 tablets by mouth daily except 2 tablets Monday or as directed by the anticoagulation clinic * Warfarin 2 mg Tab Last time this was given: Ask your nurse or doctor Take by mouth as directed by Anticoagulation clinic * This list has 4 medication(s) that are the same as other medications prescribed for you. Read thedirections carefully, and ask your doctor or other care provider to review them with you. If you are taking medications not listed here, please discuss this with a member of your healthcareteam (physician, nurse, assistant case manager, or pharmacist). For pharmacy refills or questions, please call [phone] and have your [facility] number,prescription number, and credit card handy. If you prefer to molded goods spot picker your medication at a pharmacy other than the [facility] 24 hour pharmacy, choose to speak to a staff member when prompted. MY RECOMMENDED DIET Your recommended diet is: Regular Diet, Regular consistency. MY RECOMMENDED ACTIVITY LEVEL Your recommended activity level is: resume your usual activities. MY HOSPITAL AFTERCARE INSTURCTIONS Atrial Fibrillation: Care Instructions Overview Atrial fibrillation is an irregular and often fast heartbeat. Treating this condition is important for several reasons. It can cause blood clots, which can travel from your heart to your brain and cause a stroke. An irregular heartbeat can also increase your risk for heart failure. If you have an episode of atrial fibrillation, you may feel a fluttering, racing, or pounding feeling in your chest called palpitations. You may feel short of breath, lightheaded, dizzy, or weak. Treatment can help you feel better and prevent future problems. Treatments can slow the heart rate,control the heart rhythm, or help prevent stroke. You will likely take medicine. You may have a procedure, such as electrical cardioversion or catheter ablation. You can live well and help manage atrial fibrillation by having a heart-healthy lifestyle. This lifestyle may help reduce symptoms and how often you have episodes. Follow-up care is a hooks part of your treatment and safety. Be sure to make and go to all appointments, and call your doctor if you are having problems. It's also a good idea to know your test resultsand keep a list of the medicines you take. How can you care for yourself at home? Be safe with medicines. Take your medicines exactly as prescribed. Call your doctor if you think you are having a problem with your medicine. You will get more details on the specific medicines your doctor prescribes. If your doctor has given you a blood thinner to prevent a stroke, be sure you get instructions about how to take your medicine safely. Blood thinners can cause serious bleeding problems. Do not take any vitamins, vflf-ctw-cgfdlpt drugs, or herbal products without talking to your doctorfirst. Have a heart-healthy lifestyle. Try to quit or cut back on using tobacco and other nicotine products. This includes smoking and vaping. Avoid secondhand smoke too. Eat heart-healthy foods. These include vegetables, fruits, nuts, beans, lean meat, fish, and whole grains. Limit sodium and sugar. Limit alcohol. Limit alcohol to 2 drinks a day for men and 1 drink a day for women. Avoid alcohol if it triggers symptoms. Be active. Try to get at least 30 minutes of physical activity on most days of the week. Talk to your doctor about what type and level of exercise is safe for you. Stay at a weight that's healthy for you. Talk to your doctor if you need help losing weight. Try to manage stress. Try to get 7 to 9 hours of sleep each night. Manage other health problems such as high blood pressure, high cholesterol, and diabetes. If you think you may have a problem with alcohol or drug use, talk to your doctor. Avoid infections such as COVID-19, colds, and the flu. Get the flu vaccine every year. Get a pneumococcal vaccine. If you have had one before, ask your doctor whether you need another dose. Stay up to date on your COVID-19 vaccines. Learn how to manage symptoms. Make a symptom action plan with your doctor. This will help you know what to do when you have an episode of atrial fibrillation. Use a symptom diary to find what triggers your symptoms. If you know your triggers, you can take steps to avoid them. Check your pulse regularly if your doctor recommends it. Place two fingers on the artery at the palm side of your wrist, in line with your thumb. When should you call for help? Call 911 anytime you think you may need emergency care. For example, call if: You have symptoms of a heart attack. These may include: Chest pain or pressure, or a strange feeling in the chest. Sweating. Shortness of breath. Nausea or vomiting. Pain, pressure, or a strange feeling in the back, neck, jaw, or upper belly or in one or both shoulders or arms. Lightheadedness or sudden weakness. A fast or irregular heartbeat. After you call 911, the forest fire equipment operator may tell you to chew 1 adult-strength or 2 to 4 low-dose aspirin. Wait for an ambulance. Do not try to drive yourself. You have symptoms of a stroke. These may include: Sudden numbness, tingling, weakness, or loss of movement in your face, arm, or leg, especially on only one side of your body. Sudden vision changes. Sudden trouble speaking. Sudden confusion or trouble understanding simple statements. Sudden problems with walking or balance. A sudden, severe headache that is different from past headaches. You passed out (lost consciousness). Call your doctor now or seek immediate medical care if: You have new or increased shortness of breath. You feel dizzy or lightheaded, or you feel like you may faint. You have an episode of atrial fibrillation and your doctor wants you to call when you have one. You have new or worse symptoms. Watch closely for changes in your health, and be sure to contact your doctor if you have any problems. Where can you learn more? Go to https://.org/health Enter U020 in the search box to learn more about Atrial Fibrillation: Care Instructions. Current as of: December 24, 2022 Content Version: 14.1 ?? myGreek. Care instructions adapted under license by your healthcare professional. If you have questions about a medical condition or this instruction, always ask your healthcare professional. [employer] disclaims any warranty or liability for your use of this information. WARNING SIGNS: If you think are experiencing a medical emergency, call 911 immediately or seek other emergency services. Examples of symptoms that may be an emergency include: - You have severe trouble breathing. - You cough up pink, foamy mucous and you have trouble breathing. - You have chest pain or pressure. This may occur with: - Sweating. - Shortness of breath. - Nausea or vomiting - Pain that spreads from the chest to the heck, jaw, or one or both shoulders or arms. - Dizziness or lightheadedness - A fast or uneven pulse. When should you call your doctor or other health morning caregiver? - You have new or increased shortness of breath. - You are dizzy or lightheaded, or you feel like you may faint. - You feel very tired. - You gain 2-3 lbs or more over 2 days. - You have increased swelling in your legs, ankles, or feet. - You develop new symptoms. - You have any problems with your medicines. MY FOLLOW-UP APPOINTMENTS We are going to call you within a few days of your arrival home to check on you. Many patients findthat they have questions after they get home. Please write these questions down for us, and we willbe happy to answer them. Please follow up with your Primary Care Doctor, Wilmer Ludwig) per MALLY protocol [address] / [place] [id number] No future appointments. Ask your doctors about the following tests which we have odne in the hospital for which, as of today, we do not have results: Unresulted Labs (In-Process and Collected) None Rad (In Process) (Last 50 days) None Please bring your medications or updated medication list to your follow up appointment. You can leave a message, make or change an appointment with your doctors by calling the appointmentcenter at [place]: . WHAT I CAN DO TO IMPROVE MY HEALTH Staff, please copy and paste all discharge instructions related to core measures, diabetes, PICC line, puga, all Pharmacy (Antibiotics, Warfarin), nutrition, social and human services assistant, patient/speech, wound care, and ostomy and delete this sentence. Exercise: Perform moderate-intensity physical activities for at least 30 minutes on five or more days of the week. Activity Level What it looks/feels like Examples Light Not sweating Not breathing hard Slow walking Dancing Yoga Bowling Moderate A light sweat Can talk, but can't sing Dancing Swimming Walking fast Biking Mowing the lawn Strenuous Sweating Breathing hard Can't talk or sing Jogging High-impact aerobic dancing Biking uphill Swimming laps ADDITIONAL RESOURCES FOR SELF CARE ADDITIONAL RESOURCES FOR SELF CARE Please call Wellness Coaching by Phone at 6 a.m. to 7 p.m. Monday through Monday to speak with a lifestyle sustainability coach who can assist you with quitting smoking, getting active and fit, losing weight, healthy eating, stress reduction and other health related issues. You can also access health self-management programs at [employer] These programs are available for your purchase from non [facility] vendors at a discounted rate and solely for yourbenefit: Life Station: For people living alone or at risk for a fall or other emergency, a medical alert system from [employer] provides 24/ help at the push of a button. Call or visit www.[employer] for additional information or to order a medical alert system. Mom's Meals: Good nutrition is important to your health. Mom???s Meals [employer] will deliver fresh prepared, nutritious meals to your home. There is a large variety including healthy menus to support medical conditions and they remain fresh for 2 weeks in your refrigerator. [facility] hasnegotiated a discounted griffin for you of $6.99 per meal including delivery. Visit the website [email or web address] or call to learn more and place an order Thank you for the opportunity to care for you and aid in your recovery. Your hospitalist was Dr. Jeffries, Internal Medicine It has been a privilege taking care of you! Thank you for being our member! Do not copy below line Note written with assistance of PABLO Archibald. Discussed case with Dr. Keyon Jeffries, who agrees with the assessment and plan. Nicolle Peace DO PGY-3 [facility] Family Medicine Residency 10/21/2024 3:55 PM Associated attestation - Keyon Jeffries M.D., M.D. - 10/23/2024 7:32 PM PDT Agree with DC Summary. Patient was examined and discussed with resident physician, Dr. NICOLLE PEACE DO, PGY-3 during morning rounds. Agree with assessment and treatment plan. Please see resident note for details. Electronically signed by: KEYON JEFFRIES MD Department of Family Medicine [facility] 10/23/2024 7:32 PM documented in this encounter Discharge Instructions * Medications* Yousif Garduno (Pharm.D), PHARM.D. - 10/21/2024 3:58 PM PDT Images from the original note were not included. MY MEDICATIONS These medication directions may be different from what you have been doing at home and different from how your current medication bottles read. Be assured that your physicians who care for you in clinic will be able to see this list. Outpatient Anticoagulation Service [address] [place] [id number] , Monday-Monday 8:30 AM to 4:30 PM , after 5:00 PM, weekends and holidays WARFARIN (COUMADIN) DOSAGE CALENDAR & INSTRUCTIONS Today Date: 10/21/2024 Patient: Saira Belle Roon: INR 3.1 (H) 10/21/2024 INR goal range: 2-3 Warfarin Tab (MG): 2 mg (lavender color) Day of Week Date Tablets (#) Total Dose (mg) Monday10/21/2024 1 mg dose given today at the hospital. Monday10/22/2024 Dose to be determined when lab result available. Call [phone] for all further warfarin dosing and follow up lab instructions. --> Take warfarin in the evening after 6 PM or at bedtime. N/A --> Next Lab Date: 10/22/2024, (Before noon if possible). Outpatient Anticoagulation Services will contact you for further dosage instructions. Sincerely, [facility] Inpatient Pharmacy Department What if I forget to take my warfarin or take too much? If you forget to take your warfarin dose, use the ???12-hour rule?? as a guide: If fewer than 12 hours have passed since missing your dose, go ahead and take the missed dose rightaway. If more than 12 hours have passed since missing your dose, do not take the missed dose. Wait instead, and take your next dose at the usual time. DO NOT DOUBLE UP ON DOSES or take extra warfarin to make up for a missed dose. If you miss more than 2 doses of your warfarin, contact your anticoagulation pharmacist. If you take more warfarin than directed, contact your doctor or anticoagulation pharmacist as soon as possible. What are the side effects of warfarin? Because warfarin is a blood thinner, the most common side effects are related to bleeding. Common side effects that may occur include gum bleeding from brushing your teeth (use a soft bristle toothbrush), nosebleeds, and small bruises. Some of the more serious side effects need to be reported to your doctor or anticoagulation pharmacist right away. Serious side effects (seek immediate medical attention): Unusual vaginal bleeding or heavy/prolonged menstrual bleeding Red or black,tar-like stools Red or dark brown urine Bleeding that does not stop when you cut yourself Unusual bleeding or bruising anywhere on the body Unusual pain,swelling,or discomfort Coughing up blood Vomit that is bloody or looks like coffee grounds Shortness of breath or chest pain for an unknown reason Severe headache Dizziness/fainting Unusual or persistent tiredness/weakness Difficulty swallowing What should I tell my doctors and dentists? If you go to the dentist, need emergency care or see other doctors, make sure to tell them that youare taking warfarin. Certain medical procedures such as surgery or dental procedures may require you to adjust or hold your warfarin therapy for a certain period of time. Contact your doctor or anticoagulation pharmacist at least 1 to 2 weeks before the procedure so they can discuss the changes you need to make in your warfarin dosage. * IP Discharge Instr - Additional Info* Dominique Garcia (Viki), RRegine - 10/21/2024 4:08 PM PDT Images from the original note were not included. Atrial Fibrillation: Care Instructions Overview Atrial fibrillation is an irregular and often fast heartbeat. Treating this condition is important for several reasons. It can cause blood clots, which can travel from your heart to your brain and cause a stroke. An irregular heartbeat can also increase your risk for heart failure. If you have an episode of atrial fibrillation, you may feel a fluttering, racing, or pounding feeling in your chest called palpitations. You may feel short of breath, lightheaded, dizzy, or weak. Treatment can help you feel better and prevent future problems. Treatments can slow the heart rate,control the heart rhythm, or help prevent stroke. You will likely take medicine. You may have a procedure, such as electrical cardioversion or catheter ablation. You can live well and help manage atrial fibrillation by having a heart-healthy lifestyle. This lifestyle may help reduce symptoms and how often you have episodes. Follow-up care is a hooks part of your treatment and safety. Be sure to make and go to all appointments, and call your doctor if you are having problems. It's also a good idea to know your test resultsand keep a list of the medicines you take. How can you care for yourself at home? Be safe with medicines. Take your medicines exactly as prescribed. Call your doctor if you think you are having a problem with your medicine. You will get more details on the specific medicines your doctor prescribes. If your doctor has given you a blood thinner to prevent a stroke, be sure you get instructions about how to take your medicine safely. Blood thinners can cause serious bleeding problems. Do not take any vitamins, rlnp-vxk-cndlrvx drugs, or herbal products without talking to your doctorfirst. Have a heart-healthy lifestyle. Try to quit or cut back on using tobacco and other nicotine products. This includes smoking and vaping. Avoid secondhand smoke too. Eat heart-healthy foods. These include vegetables, fruits, nuts, beans, lean meat, fish, and whole grains. Limit sodium and sugar. Limit alcohol. Limit alcohol to 2 drinks a day for men and 1 drink a day for women. Avoid alcohol if it triggers symptoms. Be active. Try to get at least 30 minutes of physical activity on most days of the week. Talk to your doctor about what type and level of exercise is safe for you. Stay at a weight that's healthy for you. Talk to your doctor if you need help losing weight. Try to manage stress. Try to get 7 to 9 hours of sleep each night. Manage other health problems such as high blood pressure, high cholesterol, and diabetes. If you think you may have a problem with alcohol or drug use, talk to your doctor. Avoid infections such as COVID-19, colds, and the flu. Get the flu vaccine every year. Get a pneumococcal vaccine. If you have had one before, ask your doctor whether you need another dose. Stay up to date on your COVID-19 vaccines. Learn how to manage symptoms. Make a symptom action plan with your doctor. This will help you know what to do when you have an episode of atrial fibrillation. Use a symptom diary to find what triggers your symptoms. If you know your triggers, you can take steps to avoid them. Check your pulse regularly if your doctor recommends it. Place two fingers on the artery at the palm side of your wrist, in line with your thumb. When should you call for help? Call 911 anytime you think you may need emergency care. For example, call if: You have symptoms of a heart attack. These may include: Chest pain or pressure, or a strange feeling in the chest. Sweating. Shortness of breath. Nausea or vomiting. Pain, pressure, or a strange feeling in the back, neck, jaw, or upper belly or in one or both shoulders or arms. Lightheadedness or sudden weakness. A fast or irregular heartbeat. After you call 911, the forest fire equipment operator may tell you to chew 1 adult-strength or 2 to 4 low-dose aspirin. Wait for an ambulance. Do not try to drive yourself. You have symptoms of a stroke. These may include: Sudden numbness, tingling, weakness, or loss of movement in your face, arm, or leg, especially on only one side of your body. Sudden vision changes. Sudden trouble speaking. Sudden confusion or trouble understanding simple statements. Sudden problems with walking or balance. A sudden, severe headache that is different from past headaches. You passed out (lost consciousness). Call your doctor now or seek immediate medical care if: You have new or increased shortness of breath. You feel dizzy or lightheaded, or you feel like you may faint. You have an episode of atrial fibrillation and your doctor wants you to call when you have one. You have new or worse symptoms. Watch closely for changes in your health, and be sure to contact your doctor if you have any problems. Where can you learn more? Go to https://.org/health Enter U020 in the search box to learn more about Atrial Fibrillation: Care Instructions. Current as of: December 24, 2022 Content Version: 14.1 ?? myGreek. Care instructions adapted under license by your healthcare professional. If you have questions about a medical condition or this instruction, always ask your healthcare professional. myGreek disclaims any warranty or liability for your use of this information. Discharge Destination Patient and/or family agrees to discharge destination. Discharge Destination home Mode of Transportation: private automobile Patient transportation arrangements from hospital at discharge made by patient Patient and/or family unable to sign discharge instructions due to N/A - patient agrees to destination Emergency mental health assistance is available 24 hours a day, 7 days a week. If you need emergency mental health assistance and are a [facility] health plan member, please call either [address] [facility] Behavioral Health Helpline . If you are not a [facility] member call the National Suicide Prevention Lifeline . Appointment and Advice [place]: If you have medical problems or concerns after you go home but before your hospital discharge appointment, please call [phone] ([phone]) . In order foryour call to be routed correctly, BE SURE TO STATE THAT YOU WERE RECENTLY DISCHARGED FROM THE HOSPITAL. The above instructions have been explained and I understand them. In addition I understand and agree to the planned discharge destination and mode of transportation identified above. * Additional Instructions* Vickie Mckeon R.N., R.N. - 10/21/2024 3:57 PM PDT Images from the original note were not included. Your Discharge Summary To Saira Belle, I have enclosed information important to your continued recovery including medication changes, dietrecommendations, activity restrictions, and follow-up appointment dates. Please review them thoroughly and ask me or your nurse any questions before leaving the hospital. MY INFORMATION Name: Saira Belle Admit Date: 10/14/2024 Discharge Date: 10/21/2024 Why I was admitted to the hospital: ATRIAL FIBRILLATION W RAPID VENTRICULAR RESPONSE Your main physician while you were in the hospital (attending physician) was Dr. Keyon Jeffries. WHO DO I CALL FOR HELP AFTER I LEAVE THE HOSPITAL? If you have medical problems or concerns after you go home and before you see your doctor, please call our [place] Discharge Nurse advice service at This service is available seven days a week, 24 hours a day. After you follow up with Wilmer Ludwig), if you have medical concerns, please call the appointment center at [place]: . Have your [facility] card handy. documented in this encounter Medications at Time of Discharge Medication Sig Dispensed Refills Start Date End Date Carvedilol (COREG) 12.5 mg Oral TabIndications:ATRI AL FIBRILLATION W RAPID VENTRICULAR RESPONSE Take 1 tablet by mouth 2 times a day 100 tablet 3 10/21/2024 10/21/2026 Amiodarone (PACERONE) 200 mg Oral TabIndications:ATRI AL FIBRILLATION W RAPID VENTRICULAR RESPONSE Take 2 tablets by mouth 2 times a day for 7 days, THEN 1 tablet daily for 60 days. 100 tablet 3 10/21/2024 10/21/2026 Atorvastatin (LIPITOR) 10 mg Oral TabIndications:HYPE RLIPIDEMIA Take 1 tablet by mouth daily to lower cholesterol and keep arteries open 100 tablet 3 07/24/2024 07/24/2026 Warfarin 2 mg Oral TabIndications:ANTI COAGULATION MONITORING, INR 2.0-3.0 Take by mouth as directed by Anticoagulation clinic 150 tablet 07/24/2024 07/23/2026 dilTIAZem (CARDIZEM CD) 120 mg Oral 24hr SR CapIndications:ATRI AL FIBRILLATION, UNSPECIFIED Take 1 capsule by mouth 2 times a day 200 capsule 2 07/24/2024 07/24/2026 cloNIDine (CATAPRES-TTS 1) 0.1 mg/24 hr TD Weekly PatchIndications:HT N (HYPERTENSION) Apply 1 Patch to skin every 7 days . 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 - 10/20/2024 6:07 PM PDT Saira Belle INPATIENT PROGRESS NOTE Name: Saira Belle Today's Date: 10/20/2024 6:10 PM Hospital Day #: LOS: 6 days Reason for visit: atrial fibrillation with rapid ventricular response HOSPITAL COURSE: Saira Belle is a 79 year old female with long history of Afib (on Warfarin), secondary hypercoag, SSS s/p PPM (05/2023 - [facility]), HFpEF (EF 55-60%), HTN, HLD, CKD 3, chronic UTIs (on Macrobid for years), and prior hospitalizations for a fib (secondary to dehydration and orthostatic hypotension) admitted for Afib with RVR likely 2/2 dehydration/ viral gastroenteritis, CT showed mild wall thickening of the colon that may be related to underdistention versus mild colitis. Titrating medications to better control HR and BP. Improving on increased PO intake and IVF. Subjective/Overnight events: - States that she still has nausea after taking PO abx - Denies chest pain, palpitations, shortness of breath, or leg swelling Patient Vitals for the past 24 hrs: Diet % Taken 10/20/24 1330 50 % 10/19/24 1932 50 % INS/OUTS: Intake/Output Summary (Last 24 hours) at 10/20/2024 1810 Last data filed at 10/20/2024 1330 Gross per 24 hour Intake 440 ml Output -- Net 440 ml POCT GLUCOSE No results for input(s): RBSPOCT in the last 72 hours. No data found. Medications: IV's Scheduled Meds: PRN Meds: Carvedilol 12.5 mg Oral BID (INPT RN check 1st dose) Lactobacillus Rhamnosus GG 1 capsule Oral Daily cloNIDine 1 Patch Transdermal Q7days Pharmacy Renal Per Protocol 1 Each Miscell. (Med.Supl.;Non-Drugs) see instruction Pantoprazole 40 mg Oral BID dilTIAZem 120 mg Oral BID Amiodarone 400 mg Oral BID Warfarin Per Protocol 1 Each Oral see instruction Psyllium Husk (Aspartame) 1 Packet Oral BID Atorvastatin 10 mg Oral Daily Dorzolamide-Timolol 1 Drop Both eyes BID Latanoprost 1 Drop Both eyes QHS Metoclopramide 5 mg intraVENOUS Q6H PRN dilTIAZem 30 mg Oral TID PRN hydrALAZINE 10 mg intraVENOUS Q6H PRN Ondansetron 4 mg intraVENOUS Q6H PRN Melatonin 3 mg Oral QHS PRN Polyethylene Glycol 3350 17 g Oral Daily PRN Acetaminophen 650 mg Oral Q4H PRN Or Acetaminophen 650 mg Rectal Q4H PRN Acetaminophen 650 mg Oral Q4H PRN Or Acetaminophen 650 mg Rectal Q4H PRN Dextromethorphan-guaiFENesin 10 mL Oral Q4H PRN Home Meds: Current Facility-Administered Medications for the 10/14/24 encounter (Hospital Encounter): Triamcinolone Acetonide Inj 40 mg (KENALOG), Triamcinolone Acetonide Inj 40 mg (KENALOG), Lidocaine (PF) 10 mg/mL (1 %) Inj 2 mg (XYLOCAINE), Lidocaine (PF) 10 mg/mL (1 %) Inj 2 mg (XYLOCAINE), Outpatient Medications Marked as Taking for the 10/14/24 encounter (Hospital Encounter): Atorvastatin (LIPITOR) 10 mg Oral Tab, Take 1 tablet by mouth daily to lower cholesterol and keep arteries open, Lisinopril (PRINIVIL/ZESTRIL) 5 mg Oral Tab, Take 1 tablet by mouth daily to control blood pressureand/or prevent strokes and help the heart and kidneys, Warfarin 2 mg Oral Tab, Take by mouth as directed by Anticoagulation clinic, dilTIAZem (CARDIZEM CD) 120 mg Oral 24hr SR Cap, Take 1 capsule by mouth 2 times a day, Warfarin 2 mg Oral Tab, Take 1 and 1/2 tablets by mouth daily except 2 tablets Monday or as directed by the anticoagulation clinic, cloNIDine (CATAPRES-TTS 1) 0.1 mg/24 hr TD Weekly Patch, Apply 1 Patch to skin every 7 days . Remove old patch before applying the new one, dilTIAZem (CARDIZEM) 30 mg Oral Tab, Take 1 tablet by mouth up to 3 times a day as needed atrial fibrillation episodes, Nitrofurantoin Monohydrate (MACROBID) 100 mg Oral Cap, Take 1 capsule by mouth daily, Latanoprost (XALATAN) 0.005 % Opht Drop, Instill 1 Drop in both eyes daily at bedtime for Glaucoma, Dorzolamide-Timolol (COSOPT) 22.3-6.8 mg/mL Opht Drop, Instill 1 Drop in both eyes 2 times a day, Vital Signs: vital signs for 24 hours were reviewed Estimated body mass index is 24.26 kg/m?? as calculated from the following: Height as of this encounter: 1.626 m (5' 4). Weight as of this encounter: 64.1 kg (141 lb 5 oz). Patient Vitals for the past 24 hrs: BP Temp Pulse Resp SpO2 10/20/24 1711 -- -- (!) 122 -- -- 10/20/24 1642 (!) 150/108 -- (!) 120 -- -- 10/20/24 1500 -- 36.1 ??C (97 ??F) -- -- -- 10/20/24 1444 (!) 145/89 -- (!) 112 -- -- 10/20/24 1300 (!) 145/89 36.1 ??C (96.9 ??F) 106 20 93 % 10/20/24 0812 (!) 123/91 (!) 35.9 ??C (96.7 ??F) (!) 128 -- 95 % 10/20/24 0800 -- (!) 35.9 ??C (96.7 ??F) -- -- -- 10/20/24 0400 (!) 160/116 36.1 ??C (97 ??F) (!) 115 -- 95 % 10/20/24 0000 125/83 36.2 ??C (97.2 ??F) 110 22 93 % 10/19/24 2100 (!) 145/96 -- 105 24 93 % 10/19/24 2000 -- 36.3 ??C (97.3 ??F) (!) 113 -- 96 % 10/19 0700 - 10/20 0659 In: 1515 [P.O.:840; I.V.:675] Out: 150 Diet % Taken: 50 % Patient Vitals for the past 168 hrs: Weight 10/19/24 0500 64.1 kg (141 lb 5 oz) 10/18/24 0344 62.6 kg (138 lb 0.1 oz) 10/17/24 0548 61 kg (134 lb 7.7 oz) 10/15/24 0600 66.7 kg (147 lb 0.8 oz) 10/14/24 1500 64 kg (141 lb) 10/14/24 1051 64.4 kg (141 lb 15.6 oz) Current weight 141 lb 5 oz Last previously recorded weight 142 lb on 10/14/24 Weight change is -11 oz Physical Examination: General: alert, well appearing, and in no distress Lungs: normal effort, clear to auscultation, no cough CVS: irregularly irregular, no murmurs Abdomen: soft, nondistended, no masses, nontender, no rebound tenderness, no guarding Neurologic:alert, oriented, normal speech, no focal findings or movement disorder noted Extremities: peripheral pulses normal, no pedal edema Labs: CBC: Recent Labs 10/20/24 04510/19/2445210/18/24455 WBC 9.4 11.3* 11.4* HGB 10.0* 10.2* 10.0* HCT 30.0* 29.6* 30.8* PLT 435* 370 344 Electrolytes Recent Labs 10/20/24 1710 10/20/24 1207 10/20/24 0459 10/19/24 1356 10/19/24 0453 10/18/24455 NA 124* 124* 126* < > 127* 130* K 3.9 3.8 3.6 < > 3.7 3.8 CL 92* 94* 97* < > 100* 104 CO2 19* 18* 21 < > 18* 18* BUN -- -- 6 -- 6 13 CR -- -- 0.54 -- 0.69 0.86 GFR -- -- 93 -- 88 68 < > = values in this interval not displayed. Differential: Recent Labs 10/20/24 0456 10/19/2445210/18/24455 NEUT 82.5 84.0 85.9 LYMPH 7.5 0.70* 6.7 0.75* 5.8 0.66* MONO 0.61 6.5 0.62 5.5 0.66 5.8 EOS 2.1 0.20 2.4 0.27 1.5 0.17 MCV 83.6 84.3 85.6 Ca++ / Mg++ / Phos+: Recent Labs 10/20/2445810/19/2445210/18/24455 MG 1.6* 1.8 2.1 Liver Function Panel: No results for input(s): TBILI, AST, ALT, ALKP, LIPASE in the last 72 hours. Invalid input(s): DBILI Troponin / INR / PTT / BNP: Recent Labs 10/20/24 04510/19/2445210/18/24455 INR 3.1* 2.9* 2.4* Lipid Panel: CHOL 176 11/09/2023 TRIG 108 11/09/2023 HDL 69 11/09/2023 LDL CALC 88 11/09/2023 LDL 68 04/08/2021 CHOL/HDL 2.6 11/09/2023 TRIGLYCERIDE, NONFASTING 96 04/08/2021 Hemoglobin A1c: HGBA1C 5.8 11/09/2023 Albumin: PREALBUMIN 21 04/13/2021 ALB 2.4 (L) 10/15/2024 Lactate: No results for input(s): LACTATE in the last 72 hours. ] Urinalysis: No results for input(s): USG, ULEUKESTER, UNITRITE, UPROTEIN, UAGLU, UKET, UROBILINOGEN, UABILI, UAHGB, UWBC, URBC, UEPITH, UBACT, UPH in the last 72 hours. CULTURES Microbiology Results ID Description Status Collection Date/Time [id number] BLOOD CULTURE Final result 10/14/24 1555 Result Value Flag Comment FINAL RESULT No growth at 5 days. [id number] BLOOD CULTURE Final result 10/14/24 1614 Result Value Flag Comment FINAL RESULT No growth at 5 days. [id number] CLOSTRIDIUM DIFFICILE GDH AG, TOXINS A, B W REFLEX TO PCR Final result 10/15/24 1011 Result Value Flag Comment CLOSTRIDIOIDES (CLOSTRIDIUM) DIFFICILE AG AND TOXINS A+B, STOOL Negative A finding of ???Indeterminate??? represents discrepant immunoassay results obtained for GDH (antigen specific to C. difficile) and toxin production. Molecular testing (nucleic acid amplification) will follow to confirm results. [id number] BACTERIAL GI PANEL (SALMONELLA, SHIGELLA/EIEC, CAMPYLOBACTER, SHIGA TOXIN DNA), STOOL, MULTIPLEX PCR Final result 10/14/248 Result Value Flag Comment SALMONELLA SPECIES DNA, STOOL, QL, PCR Not Detected SHIGELLA SP+EIEC DNA, STOOL, QL, PCR Not Detected CAMPYLOBACTER COLI/JEJUNI DNA, STOOL, QL, PCR Not Detected SHIGA TOXIN GENES, PCR Not Detected A Not Detected result may occur if the target nucleic acid concentration is below the limit of detection. The DNA test does not distinguish between Shigella species and Enteroinvasive E. coli (EIEC). Shiga toxin can be produced by Enterohemorrhagic E. coli (EHEC), Shigella dysenteriae, and rarely, other Enterobacteriaceae. If SHIGA TOXIN GENES is Detected but SHIGELLA SP+EIEC DNA is Not Detected: most consistent with EHEC (toxin-related). Antibiotics should be avoided because treatment may increase the risk of developing hemolytic uremic syndrome. If SHIGELLA SP+EIEC DNA is Detected but SHIGA TOXIN GENES is Not Detected: most consistent with Shigella or EIEC infection even if culture is negative. If symptomatic, consider treatment with antibiotics. If SHIGELLA SP+EIEC DNA is Detected and SHIGA TOXIN GENES is Detected: most consistent with Shigella dysenteriae. If symptomatic, consider treatment with antibiotics. A reflex stool culture for susceptibility testing will be performed for PCR positive (a) Salmonella if patient is <4 years old, or >= 51 years old, and (b) Shigella. See culture report. IMAGING XR CHEST 1 VIEW Narrative: CLINICAL HISTORY: Reason: hypoxia COMPARISON: Impression: FINDINGS/IMPRESSION: Pacemaker and leads remain in place. There is some haziness of the chest, likely due to the presence of bilateral pleural effusion. Retrocardiac left lower lung cannot be adequately assessed because of the overlying heart shadow. Lungs are clear otherwise. Heart size is in the upper limits of normal. This report electronically signed by Justyn Ferrari on 10/20/2024 6:36 AM Transthoracic Echo, Limited (10/14/2024) - Left Ventricle: Normal systolic function with an estimated EF of 55 - 60%. No regional wall motion abnormalities observed. - IVC/SVC: Normal (<2.1 cm) IVC size with greater than 50% collapse, estimated right atrial pressure of 3 mmHg (normal). CT Abdomen and Pelvis w/o Contrast (10/14/2024) IMPRESSION: - Mild wall thickening of the colon most pronounced involving the transverse and descending colon. This may be related to underdistention versus mild colitis. No bowel obstruction or free air. - Colonic diverticulosis. - Mild nonspecific bibasilar lung opacities which may reflect atelectasis versus infiltrates with small right and trace left layering pleural effusions. - Arterial atherosclerosis. Chest XR (10/14/2024) FINDINGS/IMPRESSION: - No interval change. There is unchanged left chest wall pacemaker. The lungs remain clear. There is unchanged slightly elevated right hemidiaphragm. No pleural effusions are seen. The cardiomediastinal silhouette is normal. - There is unchanged arteriosclerosis of the aortic knob. TRANSTHORACIC ECHO, LIMITED (TTE) [[id number]] 05/23/2023 INTERPRETATION SUMMARY: - Limited study for EF - Left Ventricle: Left ventricle size is normal. Mild septal thickening. Normal systolic function with an estimated EF of 55 - 60%. - Right Ventricle: Right ventricle size is normal. Normal systolic function. - Aortic Valve: Mild aortic regurgitation. FINDINGS: - Left Ventricle Left ventricle size is normal. Mild septal thickening. Normal systolic function with an estimated EF of 55 - 60%. - Right Ventricle Right ventricle size is normal. Normal systolic function. - Left Atrium Left atrium size is normal. - Right Atrium Right atrium size is normal. - Aortic Valve Mild aortic regurgitation. No aortic stenosis. - Mitral Valve Trace mitral regurgitation. - Pulmonic Valve Not well visualized. - Ascending Aorta The sinus of Valsalva measures 3.5 cm (Z-score 1.10). ANTIBIOTICS Current IV Antibiotics (From admission, onward) None Current Oral Antibiotics (From admission, onward) None Daily Assessment of Antibiotics (if applicable): Indication for antibiotic usage: none Based on available culture results and clinical status, antibiotic therapy has been adjusted, narrowed or stopped. Date reassessed: 10/20/2024 Anticipated stop date or duration of antibiotics: N/A Date reassessed: 10/20/2024 LINES Peripheral IV: [REMOVED] Peripheral IV 20 G Anterior;Left Wrist-Site Intervention: None required [REMOVED] Peripheral IV 22 G Left Basilic;Forearm-Site Intervention: None required [REMOVED] Peripheral IV 20 G Proximal;Right Basilic;Forearm #1-Site Intervention: None required Peripheral IV 22 G Posterior;Right Wrist-Site Intervention: None required [REMOVED] Peripheral IV 22 G Left Antecubital-Site Intervention: None required CENTRAL LINES ( if any): PUGA Catheter ( if any ): CONSULTANTS: INPATIENT INTERNAL MEDICINE CONSULT INPATIENT CARDIOLOGY CONSULT ASSESSMENT AND PLAN: Principal Problem: ATRIAL FIBRILLATION W RAPID VENTRICULAR RESPONSE Active Problems: HTN Overview: Discontinued mazxide during hospitalization Last Admit Date: 04/24/2012 due to Orthostatic hypotension - started metoprolol. Metoprolol changed to carvedilol 10/2012 while in [place] for uncontrolled Hypertension Start hydrochlorothiazide 12.5 mg 05/22/2012 Cardiac MRI performed on 11/02/12: indication: severe Hypertension with suspected severe concentric hypertrophy, assess muscle mass. Rule out renal artery stenosis. result of cardiac MRI with normal EF at 69%, normal muscle mass and mass index, there is no evidence of concentric hypertrophy. There is no evidence of hypertrophic cardiomyopathy and no compaction....normal right Ventricular size and systolic function....abdomnial aorta with mild atheromatous changes, there is no abdominal aortic aneurysm...mild right renal artery stenosis, likely moderate renal artery stenosis. HYPERLIPIDEMIA HX OF HYSTERECTOMY, TOTAL ALLERGIC RHINITIS OSTEOPOROSIS Overview: 08-19-2011 DXA T-score: -1.2 (left neck) Z-score: 0.4 FRAX Scores are not Elevated DIVERTICULOSIS OF COLON ATHEROSCLEROSIS AORTA BILATERAL RENAL ARTERY STENOSIS Overview: Renal ultrasound 11/02/12 from [place]: 1. Unable to see the origin of the left renal artery due to calcification. There are elevated velocities in the left renal artery suggestion a hemodynamically significant stenosis. If clinically indicated, an angiogram with intent to treat could be considered. 2. Normal ultrasound appearance of the kidneys, bilaterally. Cardiac MRI performed on 11/02/12 in [place]: indication: severe Hypertension with suspected severe concentric hypertrophy, assess muscle mass. Rule out renal artery stenosis. result of cardiac MRI with normal EF at 69%, normal muscle mass and mass index, there is no evidence of concentric hypertrophy. There is no evidence of hypertrophic cardiomyopathy and no compaction....normal right Ventricular size and systolic function....abdomnial aorta with mild atheromatous changes, there is no abdominal aortic aneurysm...mild right renal artery stenosis, likely moderate renal artery stenosis. PREDIABETES OSTEOARTHRITIS OF LEFT KNEE DIASTOLIC HEART FAILURE, CHRONIC (HFPEF) ATRIAL FIBRILLATION, UNSPECIFIED ANTICOAGULATION MONITORING, INR 2.0-3.0 Overview: IP referral for afib ELEVATED TROPONIN I HX OF VT, UNSPECIFIED TYPE RECURRENT UTI SUPRAVENTRICULAR TACHYCARDIA, NONSUSTAINED #ATRIAL FIBRILLATION W RAPID VENTRICULAR RESPONSE #HYPERTENSION - Discussed with Cardiology, continue amiodarone 400 mg PO BID for 10 days and then decrease to amiodarone 200 mg PO BID daily x 10-14 days. - Cardizem CD 120 mg ER PO BID daily with holding parameters. Will consider increasing if not rate controlled. - Increase Coreg 12.5 mg BID with holding parameters - Restart clonidine patch - Warfarin - Off IVF, encourage PO intake. Consider restarting if PO intake improves HYPONATREMIA Note: Worsening. Plan: - Pending urine hyponatremia labs #ABDOMINAL PAIN WITH DIARRHEA- improving #DIVERTICULOSIS OF COLON #COLITIS > Abdominal pain and diarrhea, resolved. Intermittent nausea. Most likely viral gastroenteritis vs mild colitis. No bowel obstruction or free air. Negative GI panel, C.diff. Flagyl and ceftriaxonecourse completed. - Monitor stools. - Continue metamucil BID - Zofran and Reglan IV prn - Protonix PO BID # EZRA w/ HISTORY OF BILATERAL RENAL ARTERY STENOSIS- resolved CREAT 0.54 10/20/2024 BUN 6 10/20/2024 - IVF as above #HYPOKALEMIA - resolved K 3.9 10/20/2024 HGBA1C 5.8 11/09/2023 - Replenish PO as indicated #HYPOMAGNESEMIA- resolved - MG 1.6 (L) 10/20/2024 - Replete PO as indicated #GLAUCOMA - Continue home drops. - COSOPT 22.3-6.8 mg/mL Eye Soln 1 Drop (Dorzolamide-Timolol) - Latanoprost 0.005 % Eye Soln 1 Drop (XALATAN) Sleep study upon discharge I certify that this patient requires continuous cardiac monitoring: yes If yes, rationale: afib with RVR, recurring with HR 120 FLUIDS: Off, consider restarting if PO intake decreases DVT prophylaxis: Warfarin Current Diet Orders (From admission to next 48h) Start Ordered 10/14/24 1615 Cardiac Diet (2.3 gm Na, Low Chol, No Caffeine/No Decaf) NOW Comments: WARNING: THIS IS THE COMMENTS SECTION. DIET ORDERS ARE NOT ACCEPTED IN THIS AREA. 10/14/24 1605 Code Status Status Date Full Code MonOct 14, 2024 3:08 PM Discussed plan of care with Dr. Jeffries. Patient/family were informed of the treatment plan and they expressed understanding and agreed. Electronically signed by: Nicolle Peace DO PGY-3 [facility] Medicine Residency 10/20/2024 6:10 PM Associated attestation - Keyon Jeffries M.D., M.D. - 10/20/2024 7:04 PM PDT [facility] Patient: Saira Belle Date: 10/20/2024 : 1945 Admission Date: 10/14/2024 Attending: KEYON JEFFRIES MD Patient was seen and examined independent of resident, Dr. NICOLLE PEACE DO, PGY-3 during morning rounds. Patient care discussed with resident and agree with assessment and plan. See resident's progress note for 10/20/2024. Electronically signed by: KEYON JEFFRIES MD Department of Family Medicine [facility] 10/20/2024 7:04 PM * Eder Farnsworth (D.O.), D.O. - 10/19/2024 9:01 AM PDT Saira Belle INPATIENT PROGRESS NOTE Name: Saira Belle Today's Date: 10/19/2024 9:01 AM Hospital Day #: LOS: 5 days Reason for visit: atrial fibrillation with rapid ventricular response HOSPITAL COURSE: Saira Belle is a 79 year old female with long history of Afib (on Warfarin), secondary hypercoag, SSS s/p PPM (05/2023 - [facility]), HFpEF (EF 55-60%), HTN, HLD, CKD 3, chronic UTIs (on Macrobid for years), and prior hospitalizations for a fib (secondary to dehydration and orthostatic hypotension) admitted for Afib with RVR likely 2/2 dehydration/ viral gastroenteritis, CT showed mild wall thickening of the colon that may be related to underdistention versus mild colitis. Titrating medications to better control HR and BP. Improving on increased PO intake and IVF. Subjective/Overnight events: - Complains of nausea. Afib rate controlled, BP improving. On Amio PO. Soft, brown stools. - Denies chest pain, palpitations K 3.7 10/19/2024 MG 1.8 10/19/2024 DIET Cardiac, increased PO intake to 65% No data found. INS/OUTS: Intake/Output Summary (Last 24 hours) at 10/19/2024 0901 Last data filed at 10/19/2024 0600 Gross per 24 hour Intake 2380 ml Output 1 ml Net 2379 ml POCT GLUCOSE No results for input(s): RBSPOCT in the last 72 hours. No data found. Medications: IV's Scheduled Meds: PRN Meds: Carvedilol 6.25 mg Oral BID (INPT RN check 1st dose) dilTIAZem 120 mg Oral BID metroNIDAZOLE in NaCl 500 mg intraVENOUS Q8H (INPT RN check 1st dose) Amiodarone 400 mg Oral BID Warfarin Per Protocol 1 Each Oral see instruction Psyllium Husk (Aspartame) 1 Packet Oral BID Lisinopril 5 mg Oral Daily Atorvastatin 10 mg Oral Daily Dorzolamide-Timolol 1 Drop Both eyes BID Latanoprost 1 Drop Both eyes QHS cefTRIAXone 2 g intraVENOUS Q24H (INPT RN check 1st dose) dilTIAZem 30 mg Oral TID PRN hydrALAZINE 10 mg intraVENOUS Q6H PRN Ondansetron 4 mg intraVENOUS Q6H PRN Melatonin 3 mg Oral QHS PRN Polyethylene Glycol 3350 17 g Oral Daily PRN Acetaminophen 650 mg Oral Q4H PRN Or Acetaminophen 650 mg Rectal Q4H PRN Acetaminophen 650 mg Oral Q4H PRN Or Acetaminophen 650 mg Rectal Q4H PRN Dextromethorphan-guaiFENesin 10 mL Oral Q4H PRN Home Meds: Current Facility-Administered Medications for the 10/14/24 encounter (Hospital Encounter): Triamcinolone Acetonide Inj 40 mg (KENALOG), Triamcinolone Acetonide Inj 40 mg (KENALOG), Lidocaine (PF) 10 mg/mL (1 %) Inj 2 mg (XYLOCAINE), Lidocaine (PF) 10 mg/mL (1 %) Inj 2 mg (XYLOCAINE), Outpatient Medications Marked as Taking for the 10/14/24 encounter (Hospital Encounter): Atorvastatin (LIPITOR) 10 mg Oral Tab, Take 1 tablet by mouth daily to lower cholesterol and keep arteries open, Lisinopril (PRINIVIL/ZESTRIL) 5 mg Oral Tab, Take 1 tablet by mouth daily to control blood pressureand/or prevent strokes and help the heart and kidneys, Warfarin 2 mg Oral Tab, Take by mouth as directed by Anticoagulation clinic, dilTIAZem (CARDIZEM CD) 120 mg Oral 24hr SR Cap, Take 1 capsule by mouth 2 times a day, Warfarin 2 mg Oral Tab, Take 1 and 1/2 tablets by mouth daily except 2 tablets Monday or as directed by the anticoagulation clinic, cloNIDine (CATAPRES-TTS 1) 0.1 mg/24 hr TD Weekly Patch, Apply 1 Patch to skin every 7 days . Remove old patch before applying the new one, dilTIAZem (CARDIZEM) 30 mg Oral Tab, Take 1 tablet by mouth up to 3 times a day as needed atrial fibrillation episodes, Nitrofurantoin Monohydrate (MACROBID) 100 mg Oral Cap, Take 1 capsule by mouth daily, Latanoprost (XALATAN) 0.005 % Opht Drop, Instill 1 Drop in both eyes daily at bedtime for Glaucoma, Dorzolamide-Timolol (COSOPT) 22.3-6.8 mg/mL Opht Drop, Instill 1 Drop in both eyes 2 times a day, Vital Signs: vital signs for 24 hours were reviewed Estimated body mass index is 24.26 kg/m?? as calculated from the following: Height as of this encounter: 1.626 m (5' 4). Weight as of this encounter: 64.1 kg (141 lb 5 oz). Patient Vitals for the past 24 hrs: BP Temp Pulse Resp SpO2 Weight 10/19/24 1135 113/87 36.1 ??C (97 ??F) -- -- 96 % -- 10/19/24 0800 (!) 173/75 36 ??C (96.8 ??F) 83 20 95 % -- 10/19/24 0500 -- -- -- -- -- 64.1 kg (141 lb 5 oz) 10/19/24 0400 (!) 151/71 36.2 ??C (97.2 ??F) 84 24 94 % -- 10/19/24 0320 (!) 141/80 -- 81 22 93 % -- 10/19/24 0208 (!) 181/94 -- 83 21 94 % -- 10/19/24 0045 -- -- -- -- (!) 89 % -- 10/19/24 0001 -- -- -- -- (!) 88 % -- 10/19/24 0000 (!) 173/72 36.2 ??C (97.2 ??F) 84 18 (!) 86 % -- 10/18/24 2000 (!) 156/69 36.5 ??C (97.7 ??F) 80 12 (!) 91 % -- 10/18/24 1649 (!) 161/76 -- 80 -- -- -- 10/18/24 1600 (!) 160/76 36.4 ??C (97.5 ??F) 79 20 97 % -- 10/18/24 1529 (!) 177/65 36.3 ??C (97.3 ??F) 90 -- 94 % -- 10/18 0700 - 10/19 0659 In: 2580 [P.O.:470; I.V.:2110] Out: 2 [Urine:2] Diet % Taken: 25 % Patient Vitals for the past 168 hrs: Weight 10/19/24 0500 64.1 kg (141 lb 5 oz) 10/18/24 0344 62.6 kg (138 lb 0.1 oz) 10/17/24 0548 61 kg (134 lb 7.7 oz) 10/15/24 0600 66.7 kg (147 lb 0.8 oz) 10/14/24 1500 64 kg (141 lb) 10/14/24 1051 64.4 kg (141 lb 15.6 oz) Current weight 141 lb 5 oz Last previously recorded weight 142 lb on 10/14/24 Weight change is -11 oz Physical Examination: General: alert, well appearing, and in no distress HEENT: moist oral mucosa, no pharynx erythema Neck: supple Lungs: normal effort, clear to auscultation, no cough CVS: regular rate, regular rhythm, normal S1, S2, no murmurs Abdomen: soft, nondistended, no masses, nontender, no rebound tenderness, no guarding Neurologic:alert, oriented, normal speech, no focal findings or movement disorder noted Extremities: peripheral pulses normal, no pedal edema Labs: CBC: Recent Labs 10/19/2445210/18/2445510/17/24 0513 WBC 11.3* 11.4* 9.4 HGB 10.2* 10.0* 10.5* HCT 29.6* 30.8* 31.6* PLT 370 344 296 Electrolytes Recent Labs 10/19/2445210/18/2445510/17/24 1353 10/17/24 0513 NA 127* 130* -- 133* K 3.7 3.8 3.4* 3.5 CL 100* 104 -- 102 CO2 18* 18* -- 22 BUN 6 13 -- 7 CR 0.69 0.86 -- 0.74 GFR 88 68 -- 82 Differential: Recent Labs 10/19/2445210/18/2445510/17/24 0513 NEUT 84.0 85.9 85.0 LYMPH 6.7 0.75* 5.8 0.66* 6.4 0.60* MONO 0.62 5.5 0.66 5.8 0.66 7.0 EOS 2.4 0.27 1.5 0.17 0.7 0.07 MCV 84.3 85.6 84.5 Ca++ / Mg++ / Phos+: Recent Labs 10/19/2445210/18/2445510/17/24 1353 MG 1.8 2.1 2.0 Liver Function Panel: No results for input(s): TBILI, AST, ALT, ALKP, LIPASE in the last 72 hours. Invalid input(s): DBILI Troponin / INR / PTT / BNP: Recent Labs 10/19/2445210/18/2445510/17/24 0513 INR 2.9* 2.4* 2.0* Lipid Panel: CHOL 176 11/09/2023 TRIG 108 11/09/2023 HDL 69 11/09/2023 LDL CALC 88 11/09/2023 LDL 68 04/08/2021 CHOL/HDL 2.6 11/09/2023 TRIGLYCERIDE, NONFASTING 96 04/08/2021 Hemoglobin A1c: HGBA1C 5.8 11/09/2023 Albumin: PREALBUMIN 21 04/13/2021 ALB 2.4 (L) 10/15/2024 Lactate: No results for input(s): LACTATE in the last 72 hours. ] Urinalysis: No results for input(s): USG, ULEUKESTER, UNITRITE, UPROTEIN, UAGLU, UKET, UROBILINOGEN, UABILI, UAHGB, UWBC, URBC, UEPITH, UBACT, UPH in the last 72 hours. CULTURES Microbiology Results ID Description Status Collection Date/Time [id number] BLOOD CULTURE Preliminary result 10/14/24 1555 Result Value Flag Comment PRELIMINARY RESULT: No growth at 4 days. [id number] BLOOD CULTURE Preliminary result 10/14/24 1614 Result Value Flag Comment PRELIMINARY RESULT: No growth at 4 days. [id number] CLOSTRIDIUM DIFFICILE GDH AG, TOXINS A, B W REFLEX TO PCR Final result 10/15/24 1011 Result Value Flag Comment CLOSTRIDIOIDES (CLOSTRIDIUM) DIFFICILE AG AND TOXINS A+B, STOOL Negative A finding of ???Indeterminate??? represents discrepant immunoassay results obtained for GDH (antigen specific to C. difficile) and toxin production. Molecular testing (nucleic acid amplification) will follow to confirm results. [id number] BACTERIAL GI PANEL (SALMONELLA, SHIGELLA/EIEC, CAMPYLOBACTER, SHIGA TOXIN DNA), STOOL, MULTIPLEX PCR Final result 10/14/248 Result Value Flag Comment SALMONELLA SPECIES DNA, STOOL, QL, PCR Not Detected SHIGELLA SP+EIEC DNA, STOOL, QL, PCR Not Detected CAMPYLOBACTER COLI/JEJUNI DNA, STOOL, QL, PCR Not Detected SHIGA TOXIN GENES, PCR Not Detected A Not Detected result may occur if the target nucleic acid concentration is below the limit of detection. The DNA test does not distinguish between Shigella species and Enteroinvasive E. coli (EIEC). Shiga toxin can be produced by Enterohemorrhagic E. coli (EHEC), Shigella dysenteriae, and rarely, other Enterobacteriaceae. If SHIGA TOXIN GENES is Detected but SHIGELLA SP+EIEC DNA is Not Detected: most consistent with EHEC (toxin-related). Antibiotics should be avoided because treatment may increase the risk of developing hemolytic uremic syndrome. If SHIGELLA SP+EIEC DNA is Detected but SHIGA TOXIN GENES is Not Detected: most consistent with Shigella or EIEC infection even if culture is negative. If symptomatic, consider treatment with antibiotics. If SHIGELLA SP+EIEC DNA is Detected and SHIGA TOXIN GENES is Detected: most consistent with Shigella dysenteriae. If symptomatic, consider treatment with antibiotics. A reflex stool culture for susceptibility testing will be performed for PCR positive (a) Salmonella if patient is <4 years old, or >= 51 years old, and (b) Shigella. See culture report. IMAGING Transthoracic Echo, Limited (10/14/2024) - Left Ventricle: Normal systolic function with an estimated EF of 55 - 60%. No regional wall motion abnormalities observed. - IVC/SVC: Normal (<2.1 cm) IVC size with greater than 50% collapse, estimated right atrial pressure of 3 mmHg (normal). CT Abdomen and Pelvis w/o Contrast (10/14/2024) IMPRESSION: - Mild wall thickening of the colon most pronounced involving the transverse and descending colon. This may be related to underdistention versus mild colitis. No bowel obstruction or free air. - Colonic diverticulosis. - Mild nonspecific bibasilar lung opacities which may reflect atelectasis versus infiltrates with small right and trace left layering pleural effusions. - Arterial atherosclerosis. Chest XR (10/14/2024) FINDINGS/IMPRESSION: - No interval change. There is unchanged left chest wall pacemaker. The lungs remain clear. There is unchanged slightly elevated right hemidiaphragm. No pleural effusions are seen. The cardiomediastinal silhouette is normal. - There is unchanged arteriosclerosis of the aortic knob. TRANSTHORACIC ECHO, LIMITED (TTE) [[id number]] 05/23/2023 INTERPRETATION SUMMARY: - Limited study for EF - Left Ventricle: Left ventricle size is normal. Mild septal thickening. Normal systolic function with an estimated EF of 55 - 60%. - Right Ventricle: Right ventricle size is normal. Normal systolic function. - Aortic Valve: Mild aortic regurgitation. FINDINGS: - Left Ventricle Left ventricle size is normal. Mild septal thickening. Normal systolic function with an estimated EF of 55 - 60%. - Right Ventricle Right ventricle size is normal. Normal systolic function. - Left Atrium Left atrium size is normal. - Right Atrium Right atrium size is normal. - Aortic Valve Mild aortic regurgitation. No aortic stenosis. - Mitral Valve Trace mitral regurgitation. - Pulmonic Valve Not well visualized. - Ascending Aorta The sinus of Valsalva measures 3.5 cm (Z-score 1.10). ANTIBIOTICS Current IV Antibiotics (From admission, onward) Start Stop Route Frequency Ordered 10/18/24 1430 metroNIDAZOLE in NaCl IV Premix 500 mg (FLAGYL) -- IV EVERY 8 HOURS (INPT RN CHECK 1ST DOSE) 10/18/24 1416 10/14/24 1630 cefTRIAXone Adapter Vial 2 g (ROCEPHIN) -- IV EVERY 24 HOURS (INPT RN CHECK 1ST DOSE) 10/14/24 1603 Current Oral Antibiotics (From admission, onward) None Daily Assessment of Antibiotics (if applicable): Indication for antibiotic usage: diverticulitis. Based on available culture results and clinical status, antibiotic therapy has been adjusted, narrowed or stopped. Date reassessed: 10/19/2024 Anticipated stop date or duration of antibiotics: N/A Date reassessed: 10/19/2024 LINES Peripheral IV: [REMOVED] Peripheral IV 20 G Anterior;Left Wrist-Site Intervention: None required [REMOVED] Peripheral IV 22 G Left Basilic;Forearm-Site Intervention: None required [REMOVED] Peripheral IV 20 G Proximal;Right Basilic;Forearm #1-Site Intervention: None required Peripheral IV 22 G Posterior;Right Wrist-Site Intervention: None required [REMOVED] Peripheral IV 22 G Left Antecubital-Site Intervention: None required CENTRAL LINES ( if any): PUGA Catheter ( if any ): CONSULTANTS: INPATIENT INTERNAL MEDICINE CONSULT INPATIENT CARDIOLOGY CONSULT ASSESSMENT AND PLAN: Principal Problem: ATRIAL FIBRILLATION W RAPID VENTRICULAR RESPONSE Active Problems: HTN Overview: Discontinued mazxide during hospitalization Last Admit Date: 04/24/2012 due to Orthostatic hypotension - started metoprolol. Metoprolol changed to carvedilol 10/2012 while in [place] for uncontrolled Hypertension Start hydrochlorothiazide 12.5 mg 05/22/2012 Cardiac MRI performed on 11/02/12: indication: severe Hypertension with suspected severe concentric hypertrophy, assess muscle mass. Rule out renal artery stenosis. result of cardiac MRI with normal EF at 69%, normal muscle mass and mass index, there is no evidence of concentric hypertrophy. There is no evidence of hypertrophic cardiomyopathy and no compaction....normal right Ventricular size and systolic function....abdomnial aorta with mild atheromatous changes, there is no abdominal aortic aneurysm...mild right renal artery stenosis, likely moderate renal artery stenosis. HYPERLIPIDEMIA HX OF HYSTERECTOMY, TOTAL ALLERGIC RHINITIS OSTEOPOROSIS Overview: 08-19-2011 DXA T-score: -1.2 (left neck) Z-score: 0.4 FRAX Scores are not Elevated DIVERTICULOSIS OF COLON ATHEROSCLEROSIS AORTA BILATERAL RENAL ARTERY STENOSIS Overview: Renal ultrasound 11/02/12 from [place]: 1. Unable to see the origin of the left renal artery due to calcification. There are elevated velocities in the left renal artery suggestion a hemodynamically significant stenosis. If clinically indicated, an angiogram with intent to treat could be considered. 2. Normal ultrasound appearance of the kidneys, bilaterally. Cardiac MRI performed on 11/02/12 in [place]: indication: severe Hypertension with suspected severe concentric hypertrophy, assess muscle mass. Rule out renal artery stenosis. result of cardiac MRI with normal EF at 69%, normal muscle mass and mass index, there is no evidence of concentric hypertrophy. There is no evidence of hypertrophic cardiomyopathy and no compaction....normal right Ventricular size and systolic function....abdomnial aorta with mild atheromatous changes, there is no abdominal aortic aneurysm...mild right renal artery stenosis, likely moderate renal artery stenosis. PREDIABETES OSTEOARTHRITIS OF LEFT KNEE DIASTOLIC HEART FAILURE, CHRONIC (HFPEF) ATRIAL FIBRILLATION, UNSPECIFIED ANTICOAGULATION MONITORING, INR 2.0-3.0 Overview: IP referral for afib ELEVATED TROPONIN I HX OF VT, UNSPECIFIED TYPE RECURRENT UTI SUPRAVENTRICULAR TACHYCARDIA, NONSUSTAINED #ATRIAL FIBRILLATION W RAPID VENTRICULAR RESPONSE #HYPERTENSION > Multiple hospitalizations for a fib triggered by fluid loss since 2011, most recently 2022. RVR recurred 10/17 likely from decreased PO intake. Sp Amiodarone drip, - Discussed with Cardiology, continue amiodarone 400 mg PO BID for 10 days and then decrease to amiodarone 200 mg PO BID daily x 10-14 days. - Cardizem CD 120 mg ER PO BID daily with holding parameters; Home Cardizem 30 mg TID prn with holding parameters - Coreg 6.25 mg BID with holding parameters - Restart clonidine patch, off lisinopril for cough - Warfarin - Discussed with Dr. Fernandez, ok for dc on above PO medications, stating lots of room for her BP. - Off IVF, encourage PO intake. Consider restarting if PO intake improves - Cardiology consult, recs appreciated. Per Cardiology note Dr. Fernandez 10/18: Recommend converting IV drip Amiodarone to oral Amiodarone with oral loading dose, 400mg daily for 2 wks then continue with 200mg daily until patient is seen in outpt clinic. Patient has good renal function. Consider DOAC in lieu of Coumadin. #ABDOMINAL PAIN WITH DIARRHEA- improving #DIVERTICULOSIS OF COLON #COLITIS > Abdominal pain and diarrhea, resolved. Intermittent nausea. Most likely viral gastroenteritis vs mild colitis. No bowel obstruction or free air. Negative GI panel, C.diff. Patient reports nauseawith PO flagyl, per Pharmacy unable to dc patients on IV flagyl even with home health. - Monitor stools. - Continue IV Rocephin and switch PO Flagyl to IV Flagyl for nausea (10/14-10/20) to complete a 7 daycourse - Continue metamucil BID - Zofran and Reglan IV prn - Protonix PO BID #COUGH > Patient endorses recent mild cough worsened by deep breaths on pulmonary exam. 10/14 CXR showedcleared lungs. Improving, Urine strep and legionella negative. WBC'S AUTO 11.3 (H) 10/19/2024 WBC'S AUTO 11.4 (H) 10/18/2024 WBC'S AUTO 9.4 10/17/2024 - Likely viral sequelae - Monitor # EZRA w/ HISTORY OF BILATERAL RENAL ARTERY STENOSIS- resolved CREAT 0.69 10/19/2024 BUN 6 10/19/2024 - IVF as above #HYPOKALEMIA - resolved K 3.7 10/19/2024 HGBA1C 5.8 11/09/2023 - Replenish PO as indicated #HYPOMAGNESEMIA- resolved - MG 1.8 10/19/2024 - Replete PO as indicated #GLAUCOMA - Continue home drops. - COSOPT 22.3-6.8 mg/mL Eye Soln 1 Drop (Dorzolamide-Timolol) - Latanoprost 0.005 % Eye Soln 1 Drop (XALATAN) I certify that this patient requires continuous cardiac monitoring: yes If yes, rationale: afib with RVR, recurring Current cardiac rhythm: HR 75, normal sinus rhythm, my interpretation FLUIDS: Off, consider restarting if PO intake decreases DVT prophylaxis: heparin Current Diet Orders (From admission to next 48h) Start Ordered 10/14/24 1615 Cardiac Diet (2.3 gm Na, Low Chol, No Caffeine/No Decaf) NOW Comments: WARNING: THIS IS THE COMMENTS SECTION. DIET ORDERS ARE NOT ACCEPTED IN THIS AREA. 10/14/24 1605 Code Status Status Date Full Code Mon Oct 14, 2024 3:08 PM Discussed plan of care with Dr. Jeffries. Patient/family were informed of the treatment plan and they expressed understanding and agreed. Electronically signed by: Eder Farnsworth D.O., PGY-3 [facility] 10/19/2024 9:01 AM Associated attestation - Keyon Jeffries M.D., M.D. - 10/20/2024 11:12 AM PDT [facility] Patient: Saira Belle Date: 10/19/2024 : 1945 Admission Date: 10/14/2024 Attending: KEYON JEFFRIES MD Patient was seen and examined independent of resident, Dr. Eder Farnsworth DO, PGY-3 during morningrounds. Patient care discussed with resident and agree with assessment and plan. See resident's progress note for 10/19/2024. Electronically signed by: KEYON JEFFRIES MD Department of Family Medicine [facility] 10/20/2024 11:11 AM * Zeina Fernandez M.D., Richie - 10/18/2024 10:56 AM PDT Cardiology quick note: Chart reviewed & discussed with Medicine team PGY-3. Patient not seen. Know history of parox AFib with pacemaker implanted for tachy-[place]. On Coumadin prior to admit. Now admitted for GI symptoms, gastroenteritis. Complicated by AFib with RVR --> required Amiodarone drip for rate control. Patient converted tosinus rhythm while on drip. Last cardiology clinic note from Dr. Lares reviewed. Addition of Amiodarone had been discussed due to episodes of parox AFib. Patient delayed at that time. Recommend converting IV drip Amiodarone to oral Amiodarone with oral loading dose, 400mg daily for 2 wks then continue with 200mg daily until patient is seen in outpt clinic. Patient has good renal function. Consider DOAC in lieu of Coumadin. Inpt Cardiology consult service signing off. Please call with concerns. Electronically signed by: ZEINA FERNANDEZ MD 10/18/2024 11:00 AM * Eder FarnsworthD.Ricky D.OLamar - 10/18/2024 7:55 AM PDT Saira Belle A INPATIENT PROGRESS NOTE Name: Saira Belle Today's Date: 10/18/2024 7:56 AM Hospital Day #: LOS: 4 days Reason for visit: atrial fibrillation with rapid ventricular response HOSPITAL COURSE: Saira Belle is a 79 year old female with long history of Afib (on Warfarin), secondary hypercoag, SSS s/p PPM (05/2023 - [employer]), HFpEF (EF 55-60%), HTN, HLD, CKD 3, chronic UTIs (on Macrobid for years), and prior hospitalizations for a fib (secondary to dehydration and orthostatic hypotension) who presented to [facility] for GI symptoms and diarrhea and was referred to EDdue to Afib RVR ATRIAL FIBRILLATION W RAPID VENTRICULAR RESPONSE and possible gastroenteritis, CT showed mild wall thickening of the colon that may be related to underdistention versus mild colitis. Titrating medications to better control RVR. Replacing electrolytes as needed to address possible underlying contributors to a fib with RVR. Subjective/Overnight events: - Patient reports she is feeling well and is having more softer bowel movements. Denies chest pain,palpitations, nausea. 10/18/2024: K 3.8 10/18/2024 MG 2.1 10/18/2024 - Patient reverted to NSR in AM, SBP 100s-120s - Increasing PO intake - On amiodarone drip - Soft brown stools - She has continued dry cough and complains of nausea after Flagyl dose. States she has thrown up after taking Flagyl and continues to feel bloated. - Denies chest pain, palpitations. - She states she feels less dehydrated and is urinating more often. - Labs Reviewed: PT INR 2.4, WBC 11.4, HGB 10.0, HCT 30.8, Na 130, K 3.8, BUN 13, Cr 0.86, Mag 2.1 Tele: HR 75, normal sinus rhythm DIET Cardiac, increased PO intake to 65% Patient Vitals for the past 24 hrs: Diet % Taken 10/17/24 1800 65 % 10/17/24 1400 30 % INS/OUTS: Intake/Output Summary (Last 24 hours) at 10/18/2024 0756 Last data filed at 10/18/2024 0600 Gross per 24 hour Intake 2155.6 ml Output -- Net 2155.6 ml POCT GLUCOSE No results for input(s): RBSPOCT in the last 72 hours. No data found. Medications: IV's Scheduled Meds: PRN Meds: Amiodarone intraVENOUS 0.5 mg/min (10/18/24 6468) Sodium Chloride 0.9 % with KCl intraVENOUS 75 mL/hr (10/17/24 5287) Carvedilol 25 mg Oral BID dilTIAZem 120 mg Oral BID Warfarin Per Protocol 1 Each Oral see instruction Pharmacy Renal Monitoring 1 Each Miscell. (Med.Supl.;Non-Drugs) see instruction Psyllium Husk (Aspartame) 1 Packet Oral BID Lisinopril 5 mg Oral Daily Atorvastatin 10 mg Oral Daily Dorzolamide-Timolol 1 Drop Both eyes BID Latanoprost 1 Drop Both eyes QHS cefTRIAXone 2 g intraVENOUS Q24H (INPT RN check 1st dose) metroNIDAZOLE 500 mg Oral Q8H (INPT RN check 1st dose) dilTIAZem 30 mg Oral TID PRN hydrALAZINE 10 mg intraVENOUS Q6H PRN Ondansetron 4 mg intraVENOUS Q6H PRN Melatonin 3 mg Oral QHS PRN Polyethylene Glycol 3350 17 g Oral Daily PRN Acetaminophen 650 mg Oral Q4H PRN Or Acetaminophen 650 mg Rectal Q4H PRN Acetaminophen 650 mg Oral Q4H PRN Or Acetaminophen 650 mg Rectal Q4H PRN Dextromethorphan-guaiFENesin 10 mL Oral Q4H PRN Home Meds: Current Facility-Administered Medications for the 10/14/24 encounter (Hospital Encounter): Triamcinolone Acetonide Inj 40 mg (KENALOG), Triamcinolone Acetonide Inj 40 mg (KENALOG), Lidocaine (PF) 10 mg/mL (1 %) Inj 2 mg (XYLOCAINE), Lidocaine (PF) 10 mg/mL (1 %) Inj 2 mg (XYLOCAINE), Outpatient Medications Marked as Taking for the 10/14/24 encounter (Hospital Encounter): Atorvastatin (LIPITOR) 10 mg Oral Tab, Take 1 tablet by mouth daily to lower cholesterol and keep arteries open, Lisinopril (PRINIVIL/ZESTRIL) 5 mg Oral Tab, Take 1 tablet by mouth daily to control blood pressureand/or prevent strokes and help the heart and kidneys, Warfarin 2 mg Oral Tab, Take by mouth as directed by Anticoagulation clinic, dilTIAZem (CARDIZEM CD) 120 mg Oral 24hr SR Cap, Take 1 capsule by mouth 2 times a day, Warfarin 2 mg Oral Tab, Take 1 and 1/2 tablets by mouth daily except 2 tablets Monday or as directed by the anticoagulation clinic, cloNIDine (CATAPRES-TTS 1) 0.1 mg/24 hr TD Weekly Patch, Apply 1 Patch to skin every 7 days . Remove old patch before applying the new one, dilTIAZem (CARDIZEM) 30 mg Oral Tab, Take 1 tablet by mouth up to 3 times a day as needed atrial fibrillation episodes, Nitrofurantoin Monohydrate (MACROBID) 100 mg Oral Cap, Take 1 capsule by mouth daily, Latanoprost (XALATAN) 0.005 % Opht Drop, Instill 1 Drop in both eyes daily at bedtime for Glaucoma, Dorzolamide-Timolol (COSOPT) 22.3-6.8 mg/mL Opht Drop, Instill 1 Drop in both eyes 2 times a day, Vital Signs: vital signs for 24 hours were reviewed Estimated body mass index is 23.69 kg/m?? as calculated from the following: Height as of this encounter: 1.626 m (5' 4). Weight as of this encounter: 62.6 kg (138 lb 0.1 oz). Patient Vitals for the past 24 hrs: BP Temp Pulse Resp SpO2 Weight 10/18/24 0600 (!) 150/80 -- 76 10 93 % -- 10/18/24 0405 128/81 -- -- -- -- -- 10/18/24 0400 -- 36.1 ??C (97 ??F) 104 11 95 % -- 10/18/24 0344 -- -- -- -- -- 62.6 kg (138 lb 0.1 oz) 10/18/24 0200 123/83 -- (!) 118 24 96 % -- 10/18/24 0000 120/69 36 ??C (96.8 ??F) (!) 117 17 95 % -- 10/17/24 2200 99/72 -- 97 11 95 % -- 10/17/242003 94/67 36.4 ??C (97.5 ??F) 106 21 96 % -- 10/17/241999 94/67 -- 105 12 97 % -- 10/17/24 1900 92/56 -- (!) 122 23 95 % -- 10/17/24 1728 -- -- (!) 116 20 97 % -- 10/17/24 172 -- -- 100 23 98 % -- 10/17/24 1706 97/58 -- 107 12 98 % -- 10/17/24 170 -- -- (!) 112 10 98 % -- 10/17/24 1653 (!) 86/55 36.2 ??C (97.2 ??F) 105 17 99 % -- 10/17/24 1644 100/63 -- (!) 112 14 99 % -- 10/17/24 1602 (!) 84/51 36.4 ??C (97.5 ??F) 99 22 96 % -- 10/17/24 1600 -- -- 107 22 97 % -- 10/17/24 1546 103/65 -- 101 18 98 % -- 10/17/24 1511 100/63 -- 109 16 97 % -- 10/17/24 1456 -- -- (!) 112 -- -- -- 10/17/24 1431 (!) -- 100 17 95 % -- 10/17/24 1400 (!) -- (!) 113 18 95 % -- 10/17/24 1349 (!) -- 102 18 95 % -- 10/17/24 1345 (!) -- 102 18 96 % -- 10/17/24 1331 99/55 -- (!) 119 14 96 % -- 10/17/24 1329 -- -- (!) 130 21 96 % -- 10/17/24 1328 91/65 -- (!) 124 18 96 % -- 10/17/24 1327 -- -- (!) 140 18 96 % -- 10/17/24 1311 132/77 -- (!) 130 18 97 % -- 10/17/24 1302 118/69 -- (!) 131 -- -- -- 10/17/24 1300 118/69 -- (!) 123 18 96 % -- 10/17/24 1245 -- -- (!) 131 17 96 % -- 10/17/24 1231 122/76 -- (!) 112 18 96 % -- 10/17/24 1230 -- -- (!) 114 17 96 % -- 10/17/24 1215 -- -- (!) 126 16 98 % -- 10/17/24 1214 117/59 36.9 ??C (98.4 ??F) (!) 113 16 98 % -- 10/17/24 1210 -- -- (!) 135 16 97 % -- 10/17/24 1203 -- -- (!) 124 20 97 % -- 10/17/24 1201 -- -- (!) 118 22 97 % -- 10/17/24 1200 -- -- (!) 136 20 96 % -- 10/17/24 1158 -- -- (!) 113 22 96 % -- 10/17/24 1153 -- -- (!) 115 24 97 % -- 10/17/24 1151 -- -- (!) 127 22 96 % -- 10/17/24 1148 -- -- 103 23 97 % -- 10/17/24 1146 103/65 36.8 ??C (98.2 ??F) (!) 113 20 96 % -- 10/17/24 1145 -- -- (!) 128 17 97 % -- 10/17/24 1131 107/57 -- (!) 134 17 97 % -- 10/17/24 1130 107/57 36.4 ??C (97.5 ??F) (!) 124 22 96 % -- 10/17/24 1116 97/75 -- (!) 131 20 97 % -- 10/17/24 1103 -- -- (!) 150 16 98 % -- 10/17/24 1101 123/64 -- (!) 125 20 97 % -- 10/17/24 1100 -- -- (!) 156 20 97 % -- 10/17/24 1059 126/70 -- (!) 133 18 98 % -- 10/17/24 1053 100/59 -- (!) 137 25 97 % -- 10/17/24 1050 (!) 89/72 -- (!) 149 14 98 % -- 10/17/24 1031 114/72 -- (!) 123 18 97 % -- 10/17/24 1000 125/71 36.8 ??C (98.2 ??F) (!) 135 25 97 % -- 10/17/24 0900 105/63 -- (!) 115 28 96 % -- 10/17/24 0854 121/53 -- (!) 167 -- -- -- 10/17/24 0841 127/72 -- (!) 160 -- -- -- 10/17/24 0837 -- -- (!) 163 16 97 % -- 10/17/24 0834 -- -- (!) 145 20 95 % -- 10/17/24 0823 -- -- -- -- 96 % -- 10/17/24 0819 -- -- (!) 150 -- -- -- 10/17/24 0807 (!) 146/85 -- -- -- -- -- 10/17/24 0803 -- -- (!) 163 15 96 % -- 10/17/24 0802 -- -- (!) 152 20 -- -- 10/17/24 0801 -- -- (!) 138 20 -- -- 10/17/24 0800 (!) 146/85 36.8 ??C (98.2 ??F) (!) 147 18 95 % -- 10/17/24 0759 -- -- (!) 166 22 -- -- 10/17/24 0758 -- -- 102 22 -- -- 10/17 0700 - 10/18 0659 In: 2155.6 [P.O.:220; I.V.:1935.6] Out: - Diet % Taken: 65 % Patient Vitals for the past 168 hrs: Weight 10/18/24 0344 62.6 kg (138 lb 0.1 oz) 10/17/24 0548 61 kg (134 lb 7.7 oz) 10/15/24 0600 66.7 kg (147 lb 0.8 oz) 10/14/24 1500 64 kg (141 lb) 10/14/24 1051 64.4 kg (141 lb 15.6 oz) Current weight 138 lb 0.1 oz Last previously recorded weight 142 lb on 10/14/24 Weight change is -3 lb 15.9 oz Physical Examination: General: alert, well appearing, and in no distress HEENT: moist oral mucosa, no pharynx erythema, no visualized tooth abscess or gum erythema Neck: supple, mild tenderness to palpation right jaw line Lungs: normal effort, clear to auscultation, no cough CVS: regular rate, regular rhythm, normal S1, S2, no murmurs Abdomen: soft, nondistended, no masses, mild diffuse tenderness to palpation of LUQ/LMQ/LLQ, no rebound tenderness, no guarding Neurologic:alert, oriented, normal speech, no focal findings or movement disorder noted Extremities: peripheral pulses normal, no pedal edema Labs: CBC: Recent Labs 10/18/246 10/17/24 0513 10/16/24 0548 WBC 11.4* 9.4 9.6 HGB 10.0* 10.5* 10.8* HCT 30.8* 31.6* 32.6* PLT 344 296 293 Electrolytes Recent Labs 10/18/24 0456 10/17/24 1353 10/17/24 0513 10/16/24 1319 10/16/24 0548 NA 130* -- 133* -- 134* K 3.8 3.4* 3.5 < > 3.3* CL 104 -- 102 -- 102 CO2 18* -- 22 -- 23 BUN 13 -- 7 -- 7 CR 0.86 -- 0.74 -- 0.74 GFR 68 -- 82 -- 82 < > = values in this interval not displayed. Differential: Recent Labs 10/18/24 0456 10/17/24 0513 10/16/24 0548 NEUT 85.9 85.0 84.4 LYMPH 5.8 0.66* 6.4 0.60* 7.4 0.71* MONO 0.66 5.8 0.66 7.0 0.61 6.3 EOS 1.5 0.17 0.7 0.07 0.9 0.09 MCV 85.6 84.5 84.0 Ca++ / Mg++ / Phos+: Recent Labs 10/18/24 0456 10/17/24 1353 10/17/24 1201 MG 2.1 2.0 2.3 Liver Function Panel: No results for input(s): TBILI, AST, ALT, ALKP, LIPASE in the last 72 hours. Invalid input(s): DBILI Troponin / INR / PTT / BNP: Recent Labs 10/18/24 0456 10/17/24 0513 10/16/24 0548 10/15/24 0812 INR 2.4* 2.0* 1.8* -- PTT -- -- -- 52* Lipid Panel: CHOL 176 11/09/2023 TRIG 108 11/09/2023 HDL 69 11/09/2023 LDL CALC 88 11/09/2023 LDL 68 04/08/2021 CHOL/HDL 2.6 11/09/2023 TRIGLYCERIDE, NONFASTING 96 04/08/2021 Hemoglobin A1c: HGBA1C 5.8 11/09/2023 Albumin: PREALBUMIN 21 04/13/2021 ALB 2.4 (L) 10/15/2024 Lactate: No results for input(s): LACTATE in the last 72 hours. ] Urinalysis: No results for input(s): USG, ULEUKESTER, UNITRITE, UPROTEIN, UAGLU, UKET, UROBILINOGEN, UABILI, UAHGB, UWBC, URBC, UEPITH, UBACT, UPH in the last 72 hours. CULTURES Microbiology Results ID Description Status Collection Date/Time [id number] BLOOD CULTURE Preliminary result 10/14/24 1555 Result Value Flag Comment PRELIMINARY RESULT: No growth at 3 days. [id number] BLOOD CULTURE Preliminary result 10/14/24 1614 Result Value Flag Comment PRELIMINARY RESULT: No growth at 3 days. [id number] CLOSTRIDIUM DIFFICILE GDH AG, TOXINS A, B W REFLEX TO PCR Final result 10/15/24 1011 Result Value Flag Comment CLOSTRIDIOIDES (CLOSTRIDIUM) DIFFICILE AG AND TOXINS A+B, STOOL Negative A finding of ???Indeterminate??? represents discrepant immunoassay results obtained for GDH (antigen specific to C. difficile) and toxin production. Molecular testing (nucleic acid amplification) will follow to confirm results. [id number] BACTERIAL GI PANEL (SALMONELLA, SHIGELLA/EIEC, CAMPYLOBACTER, SHIGA TOXIN DNA), STOOL, MULTIPLEX PCR Final result 10/14/242237 Result Value Flag Comment SALMONELLA SPECIES DNA, STOOL, QL, PCR Not Detected SHIGELLA SP+EIEC DNA, STOOL, QL, PCR Not Detected CAMPYLOBACTER COLI/JEJUNI DNA, STOOL, QL, PCR Not Detected SHIGA TOXIN GENES, PCR Not Detected A Not Detected result may occur if the target nucleic acid concentration is below the limit of detection. The DNA test does not distinguish between Shigella species and Enteroinvasive E. coli (EIEC). Shiga toxin can be produced by Enterohemorrhagic E. coli (EHEC), Shigella dysenteriae, and rarely, other Enterobacteriaceae. If SHIGA TOXIN GENES is Detected but SHIGELLA SP+EIEC DNA is Not Detected: most consistent with EHEC (toxin-related). Antibiotics should be avoided because treatment may increase the risk of developing hemolytic uremic syndrome. If SHIGELLA SP+EIEC DNA is Detected but SHIGA TOXIN GENES is Not Detected: most consistent with Shigella or EIEC infection even if culture is negative. If symptomatic, consider treatment with antibiotics. If SHIGELLA SP+EIEC DNA is Detected and SHIGA TOXIN GENES is Detected: most consistent with Shigella dysenteriae. If symptomatic, consider treatment with antibiotics. A reflex stool culture for susceptibility testing will be performed for PCR positive (a) Salmonella if patient is <4 years old, or >= 51 years old, and (b) Shigella. See culture report. IMAGING Transthoracic Echo, Limited (10/14/2024) - Left Ventricle: Normal systolic function with an estimated EF of 55 - 60%. No regional wall motion abnormalities observed. - IVC/SVC: Normal (<2.1 cm) IVC size with greater than 50% collapse, estimated right atrial pressure of 3 mmHg (normal). CT Abdomen and Pelvis w/o Contrast (10/14/2024) IMPRESSION: - Mild wall thickening of the colon most pronounced involving the transverse and descending colon. This may be related to underdistention versus mild colitis. No bowel obstruction or free air. - Colonic diverticulosis. - Mild nonspecific bibasilar lung opacities which may reflect atelectasis versus infiltrates with small right and trace left layering pleural effusions. - Arterial atherosclerosis. Chest XR (10/14/2024) FINDINGS/IMPRESSION: - No interval change. There is unchanged left chest wall pacemaker. The lungs remain clear. There is unchanged slightly elevated right hemidiaphragm. No pleural effusions are seen. The cardiomediastinal silhouette is normal. - There is unchanged arteriosclerosis of the aortic knob. TRANSTHORACIC ECHO, LIMITED (TTE) [[id number]] 05/23/2023 INTERPRETATION SUMMARY: - Limited study for EF - Left Ventricle: Left ventricle size is normal. Mild septal thickening. Normal systolic function with an estimated EF of 55 - 60%. - Right Ventricle: Right ventricle size is normal. Normal systolic function. - Aortic Valve: Mild aortic regurgitation. FINDINGS: - Left Ventricle Left ventricle size is normal. Mild septal thickening. Normal systolic function with an estimated EF of 55 - 60%. - Right Ventricle Right ventricle size is normal. Normal systolic function. - Left Atrium Left atrium size is normal. - Right Atrium Right atrium size is normal. - Aortic Valve Mild aortic regurgitation. No aortic stenosis. - Mitral Valve Trace mitral regurgitation. - Pulmonic Valve Not well visualized. - Ascending Aorta The sinus of Valsalva measures 3.5 cm (Z-score 1.10). ANTIBIOTICS Current IV Antibiotics (From admission, onward) Start Stop Route Frequency Ordered 10/14/24 1630 cefTRIAXone Adapter Vial 2 g (ROCEPHIN) -- IV EVERY 24 HOURS (INPT RN CHECK 1ST DOSE) 10/14/24 1603 Current Oral Antibiotics (From admission, onward) Start Stop Route Frequency Ordered 10/14/24 1630 metroNIDAZOLE Tab 500 mg (FLAGYL) -- Oral EVERY 8 HOURS (INPT RN CHECK 1ST DOSE) 10/14/24 1603 Daily Assessment of Antibiotics (if applicable): Indication for antibiotic usage: diverticulitis. Based on available culture results and clinical status, antibiotic therapy has been adjusted, narrowed or stopped. Date reassessed: 10/18/2024 Anticipated stop date or duration of antibiotics: N/A Date reassessed: 10/18/2024 LINES Peripheral IV: [REMOVED] Peripheral IV 20 G Anterior;Left Wrist-Site Intervention: None required [REMOVED] Peripheral IV 22 G Left Basilic;Forearm-Site Intervention: None required [REMOVED] Peripheral IV 20 G Proximal;Right Basilic;Forearm #1-Site Intervention: None required Peripheral IV 22 G Posterior;Right Wrist-Site Intervention: None required Peripheral IV 22 G Left Antecubital-Site Intervention: None required CENTRAL LINES ( if any): PUGA Catheter ( if any ): CONSULTANTS: INPATIENT INTERNAL MEDICINE CONSULT INPATIENT CARDIOLOGY CONSULT ASSESSMENT AND PLAN: Principal Problem: ATRIAL FIBRILLATION W RAPID VENTRICULAR RESPONSE Active Problems: HTN Overview: Discontinued mazxide during hospitalization Last Admit Date: 04/24/2012 due to Orthostatic hypotension - started metoprolol. Metoprolol changed to carvedilol 10/2012 while in [place] for uncontrolled Hypertension Start hydrochlorothiazide 12.5 mg 05/22/2012 Cardiac MRI performed on 11/02/12: indication: severe Hypertension with suspected severe concentric hypertrophy, assess muscle mass. Rule out renal artery stenosis. result of cardiac MRI with normal EF at 69%, normal muscle mass and mass index, there is no evidence of concentric hypertrophy. There is no evidence of hypertrophic cardiomyopathy and no compaction....normal right Ventricular size and systolic function....abdomnial aorta with mild atheromatous changes, there is no abdominal aortic aneurysm...mild right renal artery stenosis, likely moderate renal artery stenosis. HYPERLIPIDEMIA HX OF HYSTERECTOMY, TOTAL ALLERGIC RHINITIS OSTEOPOROSIS Overview: 08-19-2011 DXA T-score: -1.2 (left neck) Z-score: 0.4 FRAX Scores are not Elevated DIVERTICULOSIS OF COLON ATHEROSCLEROSIS AORTA BILATERAL RENAL ARTERY STENOSIS Overview: Renal ultrasound 11/02/12 from [place]: 1. Unable to see the origin of the left renal artery due to calcification. There are elevated velocities in the left renal artery suggestion a hemodynamically significant stenosis. If clinically indicated, an angiogram with intent to treat could be considered. 2. Normal ultrasound appearance of the kidneys, bilaterally. Cardiac MRI performed on 11/02/12 in [place]: indication: severe Hypertension with suspected severe concentric hypertrophy, assess muscle mass. Rule out renal artery stenosis. result of cardiac MRI with normal EF at 69%, normal muscle mass and mass index, there is no evidence of concentric hypertrophy. There is no evidence of hypertrophic cardiomyopathy and no compaction....normal right Ventricular size and systolic function....abdomnial aorta with mild atheromatous changes, there is no abdominal aortic aneurysm...mild right renal artery stenosis, likely moderate renal artery stenosis. PREDIABETES OSTEOARTHRITIS OF LEFT KNEE DIASTOLIC HEART FAILURE, CHRONIC (HFPEF) ATRIAL FIBRILLATION, UNSPECIFIED ANTICOAGULATION MONITORING, INR 2.0-3.0 Overview: IP referral for afib ELEVATED TROPONIN I HX OF VT, UNSPECIFIED TYPE RECURRENT UTI SUPRAVENTRICULAR TACHYCARDIA, NONSUSTAINED #ATRIAL FIBRILLATION W RAPID VENTRICULAR RESPONSE #HYPERTENSION > Multiple hospitalizations for a fib triggered by fluid loss since 2011, most recently 2022. RVR recurred 10/17 likely from decreased PO intake, discussed with Cardiology, jennifer to restart Amiodaronedrip for 24 hours begin amiodarone 400 mg PO BID for 10 days and then decrease to amiodarone 200 mgPO BID daily x 10-14 days. - Amio PO as above after drip - Decrease home Cardizem CD 120 mg ER PO BID daily with holding parameters - Continue home Cardizem 30 mg TID prn with holding parameters - Decrease Coreg 6.25 mg BID with holding parameters - Off clonidine patch and lisinopril - Warfarin - Discussed with jennifer Noble for dc on above PO medications, stating lots of room for her BP. - IVF NS w/ K 20 @ to 75 cc/hr for decreased PO intake, soft Bps. Consider decreasing rate if PO intake improves - Cardiology consult, recs appreciated. Per Cardiology note Dr. Fernandez 10/18: Recommend converting IV drip Amiodarone to oral Amiodarone with oral loading dose, 400mg daily for 2 wks then continue with 200mg daily until patient is seen in outpt clinic. Patient has good renal function. Consider DOAC in lieu of Coumadin. #ABDOMINAL PAIN WITH DIARRHEA- improving #DIVERTICULOSIS OF COLON #COLITIS > Abdominal pain and diarrhea, improving. Most likely viral gastroenteritis vs mild colitis. No bowel obstruction or free air. Negative GI panel, C.diff. Patient reports nausea with PO flagyl, perPharmacy unable to dc patients on IV flagyl even with home health. - Monitor stools. - Continue IV Rocephin and switch PO Flagyl to IV Flagyl for nausea (10/14-10/20) to complete a 7 daycourse - Continue metamucil BID #COUGH > Patient endorses recent mild cough worsened by deep breaths on pulmonary exam. 10/14 CXR showedcleared lungs. Improving, Urine strep and legionella negative. WBC'S AUTO 11.4 (H) 10/18/2024 WBC'S AUTO 9.4 10/17/2024 WBC'S AUTO 9.6 10/16/2024 - Likely viral sequelae - Monitor # EZRA w/ HISTORY OF BILATERAL RENAL ARTERY STENOSIS- resolved CREAT 0.86 10/18/2024 BUN 13 10/18/2024 - IVF as above #HYPOKALEMIA - resolved K 3.8 10/18/2024 HGBA1C 5.8 11/09/2023 - IVF NS w/ K 20 @ 75 cc/hr #HYPOMAGNESEMIA- resolved - MG 2.1 10/18/2024 - Replete mag as indicated #GLAUCOMA - Continue home drops. - COSOPT 22.3-6.8 mg/mL Eye Soln 1 Drop (Dorzolamide-Timolol) - Latanoprost 0.005 % Eye Soln 1 Drop (XALATAN) I certify that this patient requires continuous cardiac monitoring: yes If yes, rationale: afib with RVR, recurring Current cardiac rhythm: HR 75, normal sinus rhythm, my interpretation FLUIDS: NS w/ K 20 @ 75 cc/hr DVT prophylaxis: heparin Current Diet Orders (From admission to next 48h) Start Ordered 10/14/24 1615 Cardiac Diet (2.3 gm Na, Low Chol, No Caffeine/No Decaf) NOW Comments: WARNING: THIS IS THE COMMENTS SECTION. DIET ORDERS ARE NOT ACCEPTED IN THIS AREA. 10/14/24 1605 Code Status Status Date Full Code Mon Oct 14, 2024 3:08 PM Discussed plan of care with Dr. Jeffries. Patient/family were informed of the treatment plan and they expressed understanding and agreed. Electronically signed by: Eder Farnsworth D.O., PGY-3 [facility] 10/18/2024 7:56 AM Associated attestation - Keyon Jeffries M.D., M.D. - 10/18/2024 7:16 PM PDT [facility] Patient: Saira Belle Date: 10/18/2024 : 1945 Admission Date: 10/14/2024 Attending: KEYON JEFFRIES MD Patient was seen and examined independent of resident, Dr. Eder Farnsworth DO, PGY-3 during morningrounds. Patient care discussed with resident and agree with assessment and plan. See resident's progress note for 10/18/2024. Electronically signed by: KEYON JEFFRIES MD Department of Family Medicine [facility] 10/18/2024 7:16 PM * Eder Farnsworth (D.O.), D.O. - 10/17/2024 8:25 AM PDT Saira Belle INPATIENT PROGRESS NOTE Name: Saira Belle Today's Date: 10/17/2024 8:25 AM Hospital Day #: LOS: 3 days Reason for visit: atrial fibrillation with rapid ventricular response HOSPITAL COURSE: Saira Belle is a 79 year old female with long history of Afib (on Warfarin), secondary hypercoag, SSS s/p PPM (05/2023 - [employer]), HFpEF (EF 55-60%), HTN, HLD, CKD 3, chronic UTIs (on Macrobid for years), and prior hospitalizations for a fib (secondary to dehydration and orthostatic hypotension) who presented to [facility] for GI symptoms and diarrhea and was referred to EDdue to Afib RVR ATRIAL FIBRILLATION W RAPID VENTRICULAR RESPONSE and possible gastroenteritis, CT showed mild wall thickening of the colon that may be related to underdistention versus mild colitis. Titrating medications to better control RVR. 10/17/2024: - K 3.5 10/17/2024 - MG 1.6 (L) 10/17/2024 - magnesium repletion. - Revereted to RVR in the AM after getting up from lying position. - Amiodarone drip started - Per patient loose stools resolved. - Labs reviewed: PT INR 2.0, WBC 9.4, HGB 10.5, HCT 31.6, Neutrophils 8.00, Lymphocytes 0.60, fasting glucose 114, Na 133, K 3.5, Mag 1.6 Subjective/Overnight events: Patient reports she is feeling well and is having more normal bowel movements (less loose stool). Denies chest pain, palpitations, nausea. Admits to new jaw pain on the right side near a tooth her dentist told her would require procedure. Patient states she is urinating less frequently. Patient states cough is improving. Tele: HR 160, atrial fibrillation w/ rvr DIET Decreased PO intake 30-50% Patient Vitals for the past 24 hrs: Diet % Taken 10/16/24 1811 30 % 10/16/24 1341 50 % INS/OUTS: Intake/Output Summary (Last 24 hours) at 10/17/2024 0825 Last data filed at 10/16/20241999 Gross per 24 hour Intake 880 ml Output -- Net 880 ml POCT GLUCOSE No results for input(s): RBSPOCT in the last 72 hours. No data found. Medications: IV's Scheduled Meds: PRN Meds: Sodium Chloride 0.9 % with KCl intraVENOUS 50 mL/hr (10/16/241999) Warfarin Per Protocol 1 Each Oral see instruction Warfarin 4 mg Oral Daily (warfarin) Potassium Chloride 40 mEq Oral X1 Pharmacy Renal Monitoring 1 Each Miscell. (Med.Supl.;Non-Drugs) see instruction Psyllium Husk (Aspartame) 1 Packet Oral BID dilTIAZem 120 mg Oral BID cloNIDine 1 Patch Transdermal Q7days Lisinopril 5 mg Oral Daily Atorvastatin 10 mg Oral Daily Dorzolamide-Timolol 1 Drop Both eyes BID Latanoprost 1 Drop Both eyes QHS cefTRIAXone 2 g intraVENOUS Q24H (INPT RN check 1st dose) metroNIDAZOLE 500 mg Oral Q8H (INPT RN check 1st dose) hydrALAZINE 10 mg intraVENOUS Q6H PRN dilTIAZem 30 mg Oral TID PRN Ondansetron 4 mg intraVENOUS Q6H PRN Melatonin 3 mg Oral QHS PRN Polyethylene Glycol 3350 17 g Oral Daily PRN Acetaminophen 650 mg Oral Q4H PRN Or Acetaminophen 650 mg Rectal Q4H PRN Acetaminophen 650 mg Oral Q4H PRN Or Acetaminophen 650 mg Rectal Q4H PRN Dextromethorphan-guaiFENesin 10 mL Oral Q4H PRN Home Meds: Current Facility-Administered Medications for the 10/14/24 encounter (Hospital Encounter): Triamcinolone Acetonide Inj 40 mg (KENALOG), Triamcinolone Acetonide Inj 40 mg (KENALOG), Lidocaine (PF) 10 mg/mL (1 %) Inj 2 mg (XYLOCAINE), Lidocaine (PF) 10 mg/mL (1 %) Inj 2 mg (XYLOCAINE), Outpatient Medications Marked as Taking for the 10/14/24 encounter (Hospital Encounter): Atorvastatin (LIPITOR) 10 mg Oral Tab, Take 1 tablet by mouth daily to lower cholesterol and keep arteries open, Lisinopril (PRINIVIL/ZESTRIL) 5 mg Oral Tab, Take 1 tablet by mouth daily to control blood pressureand/or prevent strokes and help the heart and kidneys, Warfarin 2 mg Oral Tab, Take by mouth as directed by Anticoagulation clinic, dilTIAZem (CARDIZEM CD) 120 mg Oral 24hr SR Cap, Take 1 capsule by mouth 2 times a day, Warfarin 2 mg Oral Tab, Take 1 and 1/2 tablets by mouth daily except 2 tablets Monday or as directed by the anticoagulation clinic, cloNIDine (CATAPRES-TTS 1) 0.1 mg/24 hr TD Weekly Patch, Apply 1 Patch to skin every 7 days . Remove old patch before applying the new one, dilTIAZem (CARDIZEM) 30 mg Oral Tab, Take 1 tablet by mouth up to 3 times a day as needed atrial fibrillation episodes, Nitrofurantoin Monohydrate (MACROBID) 100 mg Oral Cap, Take 1 capsule by mouth daily, Latanoprost (XALATAN) 0.005 % Opht Drop, Instill 1 Drop in both eyes daily at bedtime for Glaucoma, Dorzolamide-Timolol (COSOPT) 22.3-6.8 mg/mL Opht Drop, Instill 1 Drop in both eyes 2 times a day, Vital Signs: vital signs for 24 hours were reviewed Estimated body mass index is 23.08 kg/m?? as calculated from the following: Height as of this encounter: 1.626 m (5' 4). Weight as of this encounter: 61 kg (134 lb 7.7 oz). Patient Vitals for the past 24 hrs: BP Temp Pulse Resp SpO2 Weight 10/17/24 0819 -- -- (!) 150 -- -- -- 10/17/24 0807 (!) 146/85 -- -- -- -- -- 10/17/24 0644 (!) 188/84 -- 97 14 94 % -- 10/17/24 0600 (!) 174/87 -- 91 16 95 % -- 10/17/24 0548 -- -- -- -- -- 61 kg (134 lb 7.7 oz) 10/17/24 0415 (!) 160/66 -- 89 15 95 % -- 10/17/24 0215 (!) 159/93 -- 87 -- 96 % -- 10/17/24 0000 (!) 163/68 36.7 ??C (98 ??F) 82 -- 95 % -- 10/16/24 2200 (!) 160/66 -- 94 26 93 % -- 10/16/24 2000 (!) 165/86 36.8 ??C (98.2 ??F) 99 21 94 % -- 10/16/24 1800 (!) 165/70 -- 97 27 96 % -- 10/16/24 1600 (!) 173/81 37.1 ??C (98.8 ??F) 92 13 94 % -- 10/16/24 1533 (!) 170/89 37.1 ??C (98.7 ??F) 91 13 95 % -- 10/16/24 1400 (!) 166/72 -- 89 25 92 % -- 10/16/24 1315 (!) 151/80 -- 92 (!) 5 94 % -- 10/16/24 1200 (!) 186/104 36.5 ??C (97.7 ??F) 92 16 97 % -- 10/16/24 1000 (!) 159/65 -- 86 21 94 % -- 10/16 0700 - 10/17 0659 In: 1220 [P.O.:720; I.V.:500] Out: - Diet % Taken: 30 % Patient Vitals for the past 168 hrs: Weight 10/17/24 0548 61 kg (134 lb 7.7 oz) 10/15/24 0600 66.7 kg (147 lb 0.8 oz) 10/14/24 1500 64 kg (141 lb) 10/14/24 1051 64.4 kg (141 lb 15.6 oz) Current weight 134 lb 7.7 oz Last previously recorded weight 142 lb on 10/14/24 Weight change is -7 lb 8.3 oz Physical Examination: General: alert, well appearing, and in no distress HEENT: dry oral mucosa, no pharynx erythema, no visualized tooth abscess or gum erythema Neck: supple, mild tenderness to palpation right jaw line Lungs: normal effort, clear to auscultation, no cough CVS: increased rate, irregular rhythm, normal S1, S2, no murmurs Abdomen: soft, nondistended, no masses, mild diffuse tenderness to palpation of LUQ/LMQ/LLQ, no rebound tenderness, no guarding Neurologic:alert, oriented, normal speech, no focal findings or movement disorder noted Extremities: peripheral pulses normal, no pedal edema Labs: CBC: Recent Labs 10/17/24 0513 10/16/24 0548 10/15/24 0557 WBC 9.4 9.6 9.7 HGB 10.5* 10.8* 10.9* HCT 31.6* 32.6* 32.1* PLT 296 293 270 Electrolytes Recent Labs 10/17/24 0513 10/16/24 1319 10/16/24 0548 10/15/24 1448 10/15/24 0557 NA 133* -- 134* -- 133* K 3.5 3.7 3.3* < > 3.0* CL 102 -- 102 -- 102 CO2 22 -- 23 -- 21 BUN 7 -- 7 -- 14 CR 0.74 -- 0.74 -- 0.77 GFR 82 -- 82 -- 78 < > = values in this interval not displayed. Differential: Recent Labs 10/17/24 0513 10/16/24 0548 10/15/24 0557 NEUT 85.0 84.4 85.1 LYMPH 6.4 0.60* 7.4 0.71* 7.7 0.74* MONO 0.66 7.0 0.61 6.3 0.59 6.1 EOS 0.7 0.07 0.9 0.09 0.4 0.04 MCV 84.5 84.0 84.0 Ca++ / Mg++ / Phos+: Recent Labs 10/15/24 0557 10/14/24 1404 CA -- 8.0* MG 2.0 2.5 PHOS -- 2.9 Liver Function Panel: Recent Labs 10/14/24 1106 TBILI 1.3* AST 20 ALT 15 ALKP 62 LIPASE 30 Troponin / INR / PTT / BNP: Recent Labs 10/17/24 0513 10/16/24 0548 10/15/24 0812 10/15/24 0557 10/14/24 2254 10/14/24 1614 10/14/24 1555 10/14/24 1106 TROP -- -- -- -- -- -- 24* 21* INR 2.0* 1.8* -- 2.1* -- < > -- 1.9* PTT -- -- 52* -- 46* -- -- 40* < > = values in this interval not displayed. Lipid Panel: CHOL 176 11/09/2023 TRIG 108 11/09/2023 HDL 69 11/09/2023 LDL CALC 88 11/09/2023 LDL 68 04/08/2021 CHOL/HDL 2.6 11/09/2023 TRIGLYCERIDE, NONFASTING 96 04/08/2021 Hemoglobin A1c: HGBA1C 5.8 11/09/2023 Albumin: PREALBUMIN 21 04/13/2021 ALB 2.4 (L) 10/15/2024 Lactate: Recent Labs 10/14/24 1404 10/14/24 1106 LACTATE 1.0 2.3* ] Urinalysis: No results for input(s): USG, ULEUKESTER, UNITRITE, UPROTEIN, UAGLU, UKET, UROBILINOGEN, UABILI, UAHGB, UWBC, URBC, UEPITH, UBACT, UPH in the last 72 hours. CULTURES Microbiology Results ID Description Status Collection Date/Time [id number] BLOOD CULTURE Preliminary result 10/14/24 1555 Result Value Flag Comment PRELIMINARY RESULT: No growth at 2 days. [id number] BLOOD CULTURE Preliminary result 10/14/24 1614 Result Value Flag Comment PRELIMINARY RESULT: No growth at 2 days. [id number] CLOSTRIDIUM DIFFICILE GDH AG, TOXINS A, B W REFLEX TO PCR Final result 10/15/24 1011 Result Value Flag Comment CLOSTRIDIOIDES (CLOSTRIDIUM) DIFFICILE AG AND TOXINS A+B, STOOL Negative A finding of ???Indeterminate??? represents discrepant immunoassay results obtained for GDH (antigen specific to C. difficile) and toxin production. Molecular testing (nucleic acid amplification) will follow to confirm results. [id number] BACTERIAL GI PANEL (SALMONELLA, SHIGELLA/EIEC, CAMPYLOBACTER, SHIGA TOXIN DNA), STOOL, MULTIPLEX PCR Final result 10/14/248 Result Value Flag Comment SALMONELLA SPECIES DNA, STOOL, QL, PCR Not Detected SHIGELLA SP+EIEC DNA, STOOL, QL, PCR Not Detected CAMPYLOBACTER COLI/JEJUNI DNA, STOOL, QL, PCR Not Detected SHIGA TOXIN GENES, PCR Not Detected A Not Detected result may occur if the target nucleic acid concentration is below the limit of detection. The DNA test does not distinguish between Shigella species and Enteroinvasive E. coli (EIEC). Shiga toxin can be produced by Enterohemorrhagic E. coli (EHEC), Shigella dysenteriae, and rarely, other Enterobacteriaceae. If SHIGA TOXIN GENES is Detected but SHIGELLA SP+EIEC DNA is Not Detected: most consistent with EHEC (toxin-related). Antibiotics should be avoided because treatment may increase the risk of developing hemolytic uremic syndrome. If SHIGELLA SP+EIEC DNA is Detected but SHIGA TOXIN GENES is Not Detected: most consistent with Shigella or EIEC infection even if culture is negative. If symptomatic, consider treatment with antibiotics. If SHIGELLA SP+EIEC DNA is Detected and SHIGA TOXIN GENES is Detected: most consistent with Shigella dysenteriae. If symptomatic, consider treatment with antibiotics. A reflex stool culture for susceptibility testing will be performed for PCR positive (a) Salmonella if patient is <4 years old, or >= 51 years old, and (b) Shigella. See culture report. IMAGING Transthoracic Echo, Limited (10/14/2024) - Left Ventricle: Normal systolic function with an estimated EF of 55 - 60%. No regional wall motion abnormalities observed. - IVC/SVC: Normal (<2.1 cm) IVC size with greater than 50% collapse, estimated right atrial pressure of 3 mmHg (normal). CT Abdomen and Pelvis w/o Contrast (10/14/2024) IMPRESSION: - Mild wall thickening of the colon most pronounced involving the transverse and descending colon. This may be related to underdistention versus mild colitis. No bowel obstruction or free air. - Colonic diverticulosis. - Mild nonspecific bibasilar lung opacities which may reflect atelectasis versus infiltrates with small right and trace left layering pleural effusions. - Arterial atherosclerosis. Chest XR (10/14/2024) FINDINGS/IMPRESSION: - No interval change. There is unchanged left chest wall pacemaker. The lungs remain clear. There is unchanged slightly elevated right hemidiaphragm. No pleural effusions are seen. The cardiomediastinal silhouette is normal. - There is unchanged arteriosclerosis of the aortic knob. TRANSTHORACIC ECHO, LIMITED (TTE) [[id number]] 05/23/2023 INTERPRETATION SUMMARY: - Limited study for EF - Left Ventricle: Left ventricle size is normal. Mild septal thickening. Normal systolic function with an estimated EF of 55 - 60%. - Right Ventricle: Right ventricle size is normal. Normal systolic function. - Aortic Valve: Mild aortic regurgitation. FINDINGS: - Left Ventricle Left ventricle size is normal. Mild septal thickening. Normal systolic function with an estimated EF of 55 - 60%. - Right Ventricle Right ventricle size is normal. Normal systolic function. - Left Atrium Left atrium size is normal. - Right Atrium Right atrium size is normal. - Aortic Valve Mild aortic regurgitation. No aortic stenosis. - Mitral Valve Trace mitral regurgitation. - Pulmonic Valve Not well visualized. - Ascending Aorta The sinus of Valsalva measures 3.5 cm (Z-score 1.10). ANTIBIOTICS Current IV Antibiotics (From admission, onward) Start Stop Route Frequency Ordered 10/14/24 1630 cefTRIAXone Adapter Vial 2 g (ROCEPHIN) -- IV EVERY 24 HOURS (INPT RN CHECK 1ST DOSE) 10/14/24 1603 Current Oral Antibiotics (From admission, onward) Start Stop Route Frequency Ordered 10/14/24 1630 metroNIDAZOLE Tab 500 mg (FLAGYL) -- Oral EVERY 8 HOURS (INPT RN CHECK 1ST DOSE) 10/14/24 1603 Daily Assessment of Antibiotics (if applicable): Indication for antibiotic usage: diverticulitis. Based on available culture results and clinical status, antibiotic therapy has been adjusted, narrowed or stopped. Date reassessed: 10/17/2024 Anticipated stop date or duration of antibiotics: N/A Date reassessed: 10/17/2024 LINES Peripheral IV: Peripheral IV 20 G Anterior;Left Wrist-Site Intervention: None required [REMOVED] Peripheral IV 22 G Left Basilic;Forearm-Site Intervention: None required [REMOVED] Peripheral IV 20 G Proximal;Right Basilic;Forearm #1-Site Intervention: None required CENTRAL LINES ( if any): PUGA Catheter ( if any ): CONSULTANTS: INPATIENT INTERNAL MEDICINE CONSULT INPATIENT CARDIOLOGY CONSULT ASSESSMENT AND PLAN: Principal Problem: ATRIAL FIBRILLATION W RAPID VENTRICULAR RESPONSE Active Problems: HTN Overview: Discontinued mazxide during hospitalization Last Admit Date: 04/24/2012 due to Orthostatic hypotension - started metoprolol. Metoprolol changed to carvedilol 10/2012 while in [place] for uncontrolled Hypertension Start hydrochlorothiazide 12.5 mg 05/22/2012 Cardiac MRI performed on 11/02/12: indication: severe Hypertension with suspected severe concentric hypertrophy, assess muscle mass. Rule out renal artery stenosis. result of cardiac MRI with normal EF at 69%, normal muscle mass and mass index, there is no evidence of concentric hypertrophy. There is no evidence of hypertrophic cardiomyopathy and no compaction....normal right Ventricular size and systolic function....abdomnial aorta with mild atheromatous changes, there is no abdominal aortic aneurysm...mild right renal artery stenosis, likely moderate renal artery stenosis. HYPERLIPIDEMIA HX OF HYSTERECTOMY, TOTAL ALLERGIC RHINITIS OSTEOPOROSIS Overview: 08-19-2011 DXA T-score: -1.2 (left neck) Z-score: 0.4 FRAX Scores are not Elevated DIVERTICULOSIS OF COLON ATHEROSCLEROSIS AORTA BILATERAL RENAL ARTERY STENOSIS Overview: Renal ultrasound 11/02/12 from [place]: 1. Unable to see the origin of the left renal artery due to calcification. There are elevated velocities in the left renal artery suggestion a hemodynamically significant stenosis. If clinically indicated, an angiogram with intent to treat could be considered. 2. Normal ultrasound appearance of the kidneys, bilaterally. Cardiac MRI performed on 11/02/12 in [place]: indication: severe Hypertension with suspected severe concentric hypertrophy, assess muscle mass. Rule out renal artery stenosis. result of cardiac MRI with normal EF at 69%, normal muscle mass and mass index, there is no evidence of concentric hypertrophy. There is no evidence of hypertrophic cardiomyopathy and no compaction....normal right Ventricular size and systolic function....abdomnial aorta with mild atheromatous changes, there is no abdominal aortic aneurysm...mild right renal artery stenosis, likely moderate renal artery stenosis. PREDIABETES OSTEOARTHRITIS OF LEFT KNEE DIASTOLIC HEART FAILURE, CHRONIC (HFPEF) ATRIAL FIBRILLATION, UNSPECIFIED ANTICOAGULATION MONITORING, INR 2.0-3.0 Overview: IP referral for afib ELEVATED TROPONIN I HX OF [place], UNSPECIFIED TYPE RECURRENT UTI SUPRAVENTRICULAR TACHYCARDIA, NONSUSTAINED #ATRIAL FIBRILLATION W RAPID VENTRICULAR RESPONSE #HYPERTENSION > Patient has long history of a fib (last seen by outpatient cards 06/14/2023) with PPM (05/23/2023 for tachy [place]), HFpEF (55-60%). Multiple hospitalizations for a fib triggered by fluid loss since 2011, most recently 2022. RVR reoccured after getting up, asymptomatic, possibly 2/2 dehydrationand decreased PO intake, unresolved with Cardizem IV and amiodarone IV. -Discussed with Cardiology,ok to restart Amiodarone drip for 24 hours begin amiodarone 400 mg PO BID for 10 days and then decrease to amiodarone 200 mg PO BID daily. - Continue home Carvedilol 120 mg ER PO BID daily with holding parameters - Continue home Cardizem 30 mg TID prn with holding parameters - Start Coreg 25 mg BID with holding parameters - Stop clonidine patch and lisinopril - Warfarin - Increase IVF NS w/ K 20 @ to 75 cc/hr for decreased PO intake, soft BPs - Cardiology consult - recs appreciated. Per Cardiology note Dr. Galo 10/14: - IVF - agree with amiodarone for rate control - resume home dilt after volume resuscitated and BP can tolerate - continue warfarin, inr therapeutic since 06/28/23, last INR 2.0 (H) 10/17/2024 - DCCV for unstable rvr - hold BP rx currently given soft BP - address underlying causes of tachy - Anxiety possibly contributing to RVR. Discussed with healthcare team including nursing staff the effect we can have in minimizing HR and BP fluctuations in the setting of Afib with RVR. Requested for us as the patient's healthcare team to collectively express calmness and confidence whenever we interact with the patient to assure the patient that the situation is controlled via use of verbal and non-verbal cues. #ABDOMINAL PAIN WITH DIARRHEA- improving #DIVERTICULOSIS OF COLON > Abdominal pain and diarrhea, improving. Most likely viral gastroenteritis vs mild colitis. No bowel obstruction or free air. Negative GI panel, C.diff - Monitor stools. - Continue Rocephin and Flagyl - Continue metamucil BID #COUGH > Patient endorses recent mild cough worsened by deep breaths on pulmonary exam. 10/14 CXR showedcleared lungs. Improving - Urine strep and legionella - in progress. # EZRA w/ HISTORY OF BILATERAL RENAL ARTERY STENOSIS- resolved CREAT 0.74 10/17/2024 BUN 7 10/17/2024 - IVF as above #ELEVATED BNP > Patient does not have signs of HF (no pitting edema or pulmonary crackles). CXR showed clear lungs and no pleural effusions with a normal cardiomediastinal silhouette. Llikely secondary to increased cardiac demand and work from tachycardia on admission. BNP 464 (H) 10/16/2024 BNP 1392 (H) 10/14/2024 BNP 233 (H) 08/26/2022 - Monitor. BNP improving throughout course of hospital stay. #HYPOKALEMIA - resolved K 3.5 10/17/2024 HGBA1C 5.8 11/09/2023 - IVF NS w/ K 20 @ 60 cc/hr. #HYPOMAGNESEMIA - MG 1.6 (L) 10/17/2024 - Replete mag - Recheck mag. #GLAUCOMA - Continue home drops. - COSOPT 22.3-6.8 mg/mL Eye Soln 1 Drop (Dorzolamide-Timolol) - Latanoprost 0.005 % Eye Soln 1 Drop (XALATAN) I certify that this patient requires continuous cardiac monitoring: yes If yes, rationale: afib with RVR Current cardiac rhythm: HR 160, atrial fibrillation w/ rvr, my interpretation FLUIDS: NS w/ K 20 @ 75 cc/hr DVT prophylaxis: heparin Current Diet Orders (From admission to next 48h) Start Ordered 10/14/24 1615 Cardiac Diet (2.3 gm Na, Low Chol, No Caffeine/No Decaf) NOW Comments: WARNING: THIS IS THE COMMENTS SECTION. DIET ORDERS ARE NOT ACCEPTED IN THIS AREA. 10/14/24 1605 Code Status Status Date Full Code MonOct 14, 2024 3:08 PM Note written with assistance of PABLO Archibald Discussed plan of care with Dr. Palma. Patient/family were informed of the treatment plan and they expressed understanding and agreed. Electronically signed by: Eder Farnsworth D.O., PGY-3 [facility] 10/17/2024 6:23 PM Associated attestation - Gume Palma D.O., D.O. - 10/17/2024 9:25 PM PDT I was not physically present with the Resident during the history and/or physical exam of this patient. I have not personally examined this patient. I have not documented an independent entry in the medical record. The history, physical, diagnostics and treatment plan were reviewed with the Resident. I agree withthe treatment plan and medical decision making with any exceptions noted below. Prescriptions, if any, written or ordered for this patient were reviewed and authorized by me. Reviewed note of Dr. Eder Farnsworth D.O., PGY-3 and agree. Electronically signed by: GUME HIGGINS DO 10/17/2024 9:25 PM * Eder Farnsworth D.O., D.O. - 10/16/2024 8:07 AM PDT Saira Belle INPATIENT PROGRESS NOTE Name: Saira Belle Today's Date: 10/16/2024 8:07 AM Hospital Day #: LOS: 2 days Reason for visit: atrial fibrillation with rapid ventricular response HOSPITAL COURSE: Saira Belle is a 79 year old female with long history of Afib (on Warfarin), secondary hypercoag, SSS s/p PPM (05/2023 - [employer]), HFpEF (EF 55-60%), HTN, HLD, CKD 3, chronic UTIs (on Macrobid for years), and prior hospitalizations for a fib (secondary to dehydration and orthostatic hypotension) who presented to [facility] for GI symptoms and diarrhea and was referred to EDdue to Afib RVR ATRIAL FIBRILLATION W RAPID VENTRICULAR RESPONSE and possible gastroenteritis, CT showed mild wall thickening of the colon that may be related to underdistention versus mild colitis. Her rate improved with IVF and amiodarone. 10/16/2024: - K 3.3 (L) 10/16/2024 - potassium repletion. - Per patient and nurse loose stools have improved. - Bacteria GI panel negative: C diff negative, campylobacter negative, salmonella negative, shigella negative, shiga toxin negative - Labs reviewed: PT INR 1.8, WBC 9.6, HGB 10.8, HCT 32.6, Neutrophils 8.11, Lymphocytes 0.71, fasting glucose 115, Na 134, K 3.3 Subjective/Overnight events: Patient states she is feeling much better with less frequent and less loose stools. Admits to continued bloating but states this is also improving. Denies fever, chills, nausea, emesis, chest pain, palpitations. Tele: HR 90, normal sinus rhythm DIET Patient Vitals for the past 24 hrs: Diet % Taken 10/15/24 1800 25 % 10/15/24 1200 50 % INS/OUTS: Intake/Output Summary (Last 24 hours) at 10/16/2024 0807 Last data filed at 10/16/2024 0700 Gross per 24 hour Intake 1381.67 ml Output 400 ml Net 981.67 ml POCT GLUCOSE No results for input(s): RBSPOCT in the last 72 hours. No data found. Medications: IV's Scheduled Meds: PRN Meds: Sodium Chloride 0.9 % with KCl intraVENOUS 50 mL/hr (10/15/24 1544) Potassium Chloride 40 mEq Oral X1 Heparin Porcine 5,000 Units Subcutaneous Q12H Pharmacy Renal Monitoring 1 Each Miscell. (Med.Supl.;Non-Drugs) see instruction Psyllium Husk (Aspartame) 1 Packet Oral BID dilTIAZem 120 mg Oral BID cloNIDine 1 Patch Transdermal Q7days Lisinopril 5 mg Oral Daily Atorvastatin 10 mg Oral Daily Dorzolamide-Timolol 1 Drop Both eyes BID Latanoprost 1 Drop Both eyes QHS cefTRIAXone 2 g intraVENOUS Q24H (INPT RN check 1st dose) metroNIDAZOLE 500 mg Oral Q8H (INPT RN check 1st dose) dilTIAZem 30 mg Oral TID PRN Ondansetron 4 mg intraVENOUS Q6H PRN Melatonin 3 mg Oral QHS PRN Polyethylene Glycol 3350 17 g Oral Daily PRN Acetaminophen 650 mg Oral Q4H PRN Or Acetaminophen 650 mg Rectal Q4H PRN Acetaminophen 650 mg Oral Q4H PRN Or Acetaminophen 650 mg Rectal Q4H PRN Dextromethorphan-guaiFENesin 10 mL Oral Q4H PRN Home Meds: Current Facility-Administered Medications for the 10/14/24 encounter (Hospital Encounter): Triamcinolone Acetonide Inj 40 mg (KENALOG), Triamcinolone Acetonide Inj 40 mg (KENALOG), Lidocaine (PF) 10 mg/mL (1 %) Inj 2 mg (XYLOCAINE), Lidocaine (PF) 10 mg/mL (1 %) Inj 2 mg (XYLOCAINE), Outpatient Medications Marked as Taking for the 10/14/24 encounter (Hospital Encounter): Atorvastatin (LIPITOR) 10 mg Oral Tab, Take 1 tablet by mouth daily to lower cholesterol and keep arteries open, Lisinopril (PRINIVIL/ZESTRIL) 5 mg Oral Tab, Take 1 tablet by mouth daily to control blood pressureand/or prevent strokes and help the heart and kidneys, Warfarin 2 mg Oral Tab, Take by mouth as directed by Anticoagulation clinic, dilTIAZem (CARDIZEM CD) 120 mg Oral 24hr SR Cap, Take 1 capsule by mouth 2 times a day, Warfarin 2 mg Oral Tab, Take 1 and 1/2 tablets by mouth daily except 2 tablets Monday or as directed by the anticoagulation clinic, cloNIDine (CATAPRES-TTS 1) 0.1 mg/24 hr TD Weekly Patch, Apply 1 Patch to skin every 7 days . Remove old patch before applying the new one, dilTIAZem (CARDIZEM) 30 mg Oral Tab, Take 1 tablet by mouth up to 3 times a day as needed atrial fibrillation episodes, Nitrofurantoin Monohydrate (MACROBID) 100 mg Oral Cap, Take 1 capsule by mouth daily, Latanoprost (XALATAN) 0.005 % Opht Drop, Instill 1 Drop in both eyes daily at bedtime for Glaucoma, Dorzolamide-Timolol (COSOPT) 22.3-6.8 mg/mL Opht Drop, Instill 1 Drop in both eyes 2 times a day, Vital Signs: vital signs for 24 hours were reviewed Estimated body mass index is 25.24 kg/m?? as calculated from the following: Height as of this encounter: 1.626 m (5' 4). Weight as of this encounter: 66.7 kg (147 lb 0.8 oz). Patient Vitals for the past 24 hrs: BP Temp Pulse Resp SpO2 10/16/24 0600 (!) 157/80 -- 97 16 94 % 10/16/24 0515 (!) 173/80 -- 96 18 95 % 10/16/24 0200 -- -- 93 18 97 % 10/16/24 0000 137/74 -- 92 18 93 % 10/15/24 2200 (!) 180/96 -- 88 19 95 % 10/15/24 2000 (!) 169/69 37.2 ??C (99 ??F) 94 18 92 % 10/15/24 1639 (!) 170/78 -- 96 13 97 % 10/15/24 1539 -- 36.3 ??C (97.4 ??F) -- -- -- 10/15/24 1400 (!) 150/59 -- 92 15 94 % 10/15/24 1200 -- -- 93 -- -- 10/15/24 1143 (!) 149/64 37 ??C (98.6 ??F) -- 11 94 % 10/15/24 1051 (!) 173/74 -- 86 13 96 % 10/15/24 1000 -- -- 85 23 96 % 10/15/24 0825 (!) 153/76 36.3 ??C (97.3 ??F) 91 15 95 % 10/15 0700 - 10/16 0659 In: 1481.67 [P.O.:600; I.V.:881.67] Out: 400 [Urine:400] Diet % Taken: 25 % Patient Vitals for the past 168 hrs: Weight 10/15/24 0600 66.7 kg (147 lb 0.8 oz) 10/14/24 1500 64 kg (141 lb) 10/14/24 1051 64.4 kg (141 lb 15.6 oz) Current weight 147 lb 0.8 oz Last previously recorded weight 142 lb on 10/14/24 Weight change is +5 lb 0.8 oz Physical Examination: General: alert, well appearing, and in no distress HEENT: dry oral mucosa, no pharynx erythma Neck: supple Lungs: normal effort, clear to auscultation, mild cough with deep inspiration CVS: normal rate, regular rhythm, normal S1, S2, no murmurs Abdomen: soft, nondistended, no masses, mild diffuse tenderness to palpation of umbilical/LUQ/LMQ/LLQ, no rebound tenderness, no guarding Neurologic:alert, oriented, normal speech, no focal findings or movement disorder noted Extremities: peripheral pulses normal, no pedal edema Labs: CBC: Recent Labs 10/16/24 0548 10/15/24 0557 10/14/24 1106 WBC 9.6 9.7 14.2* HGB 10.8* 10.9* 11.8 HCT 32.6* 32.1* 36.2 PLT 293 270 327 Electrolytes Recent Labs 10/16/24 0548 10/15/24 1448 10/15/24 0557 10/14/24 1106 NA 134* -- 133* 131* K 3.3* 3.9 3.0* 4.0 CL 102 -- 102 97* CO2 23 -- 21 20* BUN 7 -- 14 16 CR 0.74 -- 0.77 1.25* GFR 82 -- 78 44* Differential: Recent Labs 10/16/24 0548 10/15/24 0557 10/14/24 1106 NEUT 84.4 85.1 83.7 LYMPH 7.4 0.71* 7.7 0.74* 8.5 1.21 MONO 0.61 6.3 0.59 6.1 0.89 6.3 EOS 0.9 0.09 0.4 0.04 0.2 0.03 MCV 84.0 84.0 86.0 Ca++ / Mg++ / Phos+: Recent Labs 10/15/24 0557 10/14/24 1404 CA -- 8.0* MG 2.0 2.5 PHOS -- 2.9 Liver Function Panel: Recent Labs 10/14/24 1106 TBILI 1.3* AST 20 ALT 15 ALKP 62 LIPASE 30 Troponin / INR / PTT / BNP: Recent Labs 10/16/24 0548 10/15/24 0812 10/15/24 0557 10/14/24 2254 10/14/24 1614 10/14/24 1555 10/14/24 1106 TROP -- -- -- -- -- 24* 21* INR 1.8* -- 2.1* -- 2.0* -- 1.9* PTT -- 52* -- 46* -- -- 40* Lipid Panel: CHOL 176 11/09/2023 TRIG 108 11/09/2023 HDL 69 11/09/2023 LDL CALC 88 11/09/2023 LDL 68 04/08/2021 CHOL/HDL 2.6 11/09/2023 TRIGLYCERIDE, NONFASTING 96 04/08/2021 Hemoglobin A1c: HGBA1C 5.8 11/09/2023 Albumin: PREALBUMIN 21 04/13/2021 ALB 2.4 (L) 10/15/2024 Lactate: Recent Labs 10/14/24 1404 10/14/24 1106 LACTATE 1.0 2.3* ] Urinalysis: No results for input(s): USG, ULEUKESTER, UNITRITE, UPROTEIN, UAGLU, UKET, UROBILINOGEN, UABILI, UAHGB, UWBC, URBC, UEPITH, UBACT, UPH in the last 72 hours. CULTURES Blood cultures (collected 10/14/2024) - no growth at one day. Microbiology Results ID Description Status Collection Date/Time [id number] BLOOD CULTURE Preliminary result 10/14/24 1555 Result Value Flag Comment PRELIMINARY RESULT: No growth at 1 day. [id number] BLOOD CULTURE Preliminary result 10/14/24 1614 Result Value Flag Comment PRELIMINARY RESULT: No growth at 1 day. [id number] CLOSTRIDIUM DIFFICILE GDH AG, TOXINS A, B W REFLEX TO PCR Final result 10/15/24 1011 Result Value Flag Comment CLOSTRIDIOIDES (CLOSTRIDIUM) DIFFICILE AG AND TOXINS A+B, STOOL Negative A finding of ???Indeterminate??? represents discrepant immunoassay results obtained for GDH (antigen specific to C. difficile) and toxin production. Molecular testing (nucleic acid amplification) will follow to confirm results. [id number] BACTERIAL GI PANEL (SALMONELLA, SHIGELLA/EIEC, CAMPYLOBACTER, SHIGA TOXIN DNA), STOOL, MULTIPLEX PCR Final result 10/14/24 2238 Result Value Flag Comment SALMONELLA SPECIES DNA, STOOL, QL, PCR Not Detected SHIGELLA SP+EIEC DNA, STOOL, QL, PCR Not Detected CAMPYLOBACTER COLI/JEJUNI DNA, STOOL, QL, PCR Not Detected SHIGA TOXIN GENES, PCR Not Detected A Not Detected result may occur if the target nucleic acid concentration is below the limit of detection. The DNA test does not distinguish between Shigella species and Enteroinvasive E. coli (EIEC). Shiga toxin can be produced by Enterohemorrhagic E. coli (EHEC), Shigella dysenteriae, and rarely, other Enterobacteriaceae. If SHIGA TOXIN GENES is Detected but SHIGELLA SP+EIEC DNA is Not Detected: most consistent with EHEC (toxin-related). Antibiotics should be avoided because treatment may increase the risk of developing hemolytic uremic syndrome. If SHIGELLA SP+EIEC DNA is Detected but SHIGA TOXIN GENES is Not Detected: most consistent with Shigella or EIEC infection even if culture is negative. If symptomatic, consider treatment with antibiotics. If SHIGELLA SP+EIEC DNA is Detected and SHIGA TOXIN GENES is Detected: most consistent with Shigella dysenteriae. If symptomatic, consider treatment with antibiotics. A reflex stool culture for susceptibility testing will be performed for PCR positive (a) Salmonella if patient is <4 years old, or >= 51 years old, and (b) Shigella. See culture report. IMAGING Transthoracic Echo, Limited (10/14/2024) - Left Ventricle: Normal systolic function with an estimated EF of 55 - 60%. No regional wall motion abnormalities observed. - IVC/SVC: Normal (<2.1 cm) IVC size with greater than 50% collapse, estimated right atrial pressure of 3 mmHg (normal). CT Abdomen and Pelvis w/o Contrast (10/14/2024) IMPRESSION: - Mild wall thickening of the colon most pronounced involving the transverse and descending colon. This may be related to underdistention versus mild colitis. No bowel obstruction or free air. - Colonic diverticulosis. - Mild nonspecific bibasilar lung opacities which may reflect atelectasis versus infiltrates with small right and trace left layering pleural effusions. - Arterial atherosclerosis. Chest XR (10/14/2024) FINDINGS/IMPRESSION: - No interval change. There is unchanged left chest wall pacemaker. The lungs remain clear. There is unchanged slightly elevated right hemidiaphragm. No pleural effusions are seen. The cardiomediastinal silhouette is normal. - There is unchanged arteriosclerosis of the aortic knob. TRANSTHORACIC ECHO, LIMITED (TTE) [[id number]] 05/23/2023 INTERPRETATION SUMMARY: - Limited study for EF - Left Ventricle: Left ventricle size is normal. Mild septal thickening. Normal systolic function with an estimated EF of 55 - 60%. - Right Ventricle: Right ventricle size is normal. Normal systolic function. - Aortic Valve: Mild aortic regurgitation. FINDINGS: - Left Ventricle Left ventricle size is normal. Mild septal thickening. Normal systolic function with an estimated EF of 55 - 60%. - Right Ventricle Right ventricle size is normal. Normal systolic function. - Left Atrium Left atrium size is normal. - Right Atrium Right atrium size is normal. - Aortic Valve Mild aortic regurgitation. No aortic stenosis. - Mitral Valve Trace mitral regurgitation. - Pulmonic Valve Not well visualized. - Ascending Aorta The sinus of Valsalva measures 3.5 cm (Z-score 1.10). ANTIBIOTICS Current IV Antibiotics (From admission, onward) Start Stop Route Frequency Ordered 10/14/24 1630 cefTRIAXone Adapter Vial 2 g (ROCEPHIN) -- IV EVERY 24 HOURS (INPT RN CHECK 1ST DOSE) 10/14/24 1603 Current Oral Antibiotics (From admission, onward) Start Stop Route Frequency Ordered 10/14/24 1630 metroNIDAZOLE Tab 500 mg (FLAGYL) -- Oral EVERY 8 HOURS (INPT RN CHECK 1ST DOSE) 10/14/24 1603 Daily Assessment of Antibiotics (if applicable): Indication for antibiotic usage: diverticulitis. Based on available culture results and clinical status, antibiotic therapy has been adjusted, narrowed or stopped. Date reassessed: 10/16/2024 Anticipated stop date or duration of antibiotics: N/A Date reassessed: 10/16/2024 LINES Peripheral IV: Peripheral IV 20 G Anterior;Left Wrist-Site Intervention: None required [REMOVED] Peripheral IV 22 G Left Basilic;Forearm-Site Intervention: None required Peripheral IV 20 G Proximal;Right Basilic;Forearm #1-Site Intervention: None required CENTRAL LINES ( if any): PUGA Catheter ( if any ): CONSULTANTS: INPATIENT INTERNAL MEDICINE CONSULT INPATIENT CARDIOLOGY CONSULT ASSESSMENT AND PLAN: Principal Problem: ATRIAL FIBRILLATION W RAPID VENTRICULAR RESPONSE Active Problems: HTN Overview: Discontinued mazxide during hospitalization Last Admit Date: 04/24/2012 due to Orthostatic hypotension - started metoprolol. Metoprolol changed to carvedilol 10/2012 while in [place] for uncontrolled Hypertension Start hydrochlorothiazide 12.5 mg 05/22/2012 Cardiac MRI performed on 11/02/12: indication: severe Hypertension with suspected severe concentric hypertrophy, assess muscle mass. Rule out renal artery stenosis. result of cardiac MRI with normal EF at 69%, normal muscle mass and mass index, there is no evidence of concentric hypertrophy. There is no evidence of hypertrophic cardiomyopathy and no compaction....normal right Ventricular size and systolic function....abdomnial aorta with mild atheromatous changes, there is no abdominal aortic aneurysm...mild right renal artery stenosis, likely moderate renal artery stenosis. HYPERLIPIDEMIA HX OF HYSTERECTOMY, TOTAL ALLERGIC RHINITIS OSTEOPOROSIS Overview: 08-19-2011 DXA T-score: -1.2 (left neck) Z-score: 0.4 FRAX Scores are not Elevated DIVERTICULOSIS OF COLON ATHEROSCLEROSIS AORTA BILATERAL RENAL ARTERY STENOSIS Overview: Renal ultrasound 11/02/12 from [place]: 1. Unable to see the origin of the left renal artery due to calcification. There are elevated velocities in the left renal artery suggestion a hemodynamically significant stenosis. If clinically indicated, an angiogram with intent to treat could be considered. 2. Normal ultrasound appearance of the kidneys, bilaterally. Cardiac MRI performed on 11/02/12 in [place]: indication: severe Hypertension with suspected severe concentric hypertrophy, assess muscle mass. Rule out renal artery stenosis. result of cardiac MRI with normal EF at 69%, normal muscle mass and mass index, there is no evidence of concentric hypertrophy. There is no evidence of hypertrophic cardiomyopathy and no compaction....normal right Ventricular size and systolic function....abdomnial aorta with mild atheromatous changes, there is no abdominal aortic aneurysm...mild right renal artery stenosis, likely moderate renal artery stenosis. PREDIABETES OSTEOARTHRITIS OF LEFT KNEE DIASTOLIC HEART FAILURE, CHRONIC (HFPEF) ATRIAL FIBRILLATION, UNSPECIFIED ANTICOAGULATION MONITORING, INR 2.0-3.0 Overview: IP referral for afib ELEVATED TROPONIN I HX OF [place], UNSPECIFIED TYPE RECURRENT UTI SUPRAVENTRICULAR TACHYCARDIA, NONSUSTAINED #ATRIAL FIBRILLATION W RAPID VENTRICULAR RESPONSE #HYPERTENSION > Patient has long history of a fib (last seen by outpatient cards 06/14/2023) with PPM (05/23/2023 for tachy [place]), HFpEF (55-60%), hyperlipidemia (on statin) and hypertension followed by nephrology for renal artery stenosis. Multiple hospitalizations for a fib triggered by fluid loss since 2011, most recently 2022. Patient's rate improved with IVF and amiodarone gtt, sp amiodarone x1 and Cardizem x2. BM frequency improving, becoming more formed. - Continue home cardizem ER 120 and home Cardizem prn for HR >120 - Heparin for DVT prophylaxis - Atorvastatin Tab 10 mg - Resume home clonidine patch and lisinopril. - Start Hydralyzine prn with holding parameters - IVF NS w/ K 20 @ 50 cc/hr - No signs of fluid overload (no lower extremity edema, oral mucosa is dry). - Cardiology consult - recs appreciated. Per Cardiology note Dr. Galo 10/14: - IVF - agree with amiodarone for rate control - resume home dilt after volume resuscitated and BP can tolerate - continue warfarin, inr therapeutic since 06/28/23, last INR 2.1 (H) 10/15/2024 - DCCV for unstable rvr - hold BP rx currently given soft BP - address underlying causes of tachy #ABDOMINAL PAIN WITH DIARRHEA #DIVERTICULOSIS OF COLON > Abdominal pain and diarrhea with WBC'S AUTO 9.6 10/16/2024. CT abdomen shows colonic diverticulosis and mild wall thickening of the colon most pronounced involving the transverse and descending colon. This may be related to underdistention versus mild colitis. No bowel obstruction or free air.Negative GI panel, C.diff - Monitor stools. - Continue Rocephin and Flagyl. - Continue metamucil BID, consider balance of loose stools as way for body to expel viral gastroenteritis vs risk of dehydration and electrolyte abnormalities further worsening Afib with RVR. #COUGH > Patient endorses recent mild cough worsened by deep breaths on pulmonary exam. 10/14 CXR showedcleared lungs. - COVID/flu swab. - Urine strep and legionella. # EZRA w/ HISTORY OF BILATERAL RENAL ARTERY STENOSIS >EZRA resolved with IVF CREAT 0.74 10/16/2024 BUN 7 10/16/2024 - Continue IVF in the setting of loose bowel movements. #ELEVATED BNP > Patient does not have signs of HF (no pitting edema or pulmonary crackles). CXR showed clear lungs and no pleural effusions with a normal cardiomediastinal silhouette. Llikely secondary to increased cardiac demand and work from tachycardia on admission. BNP 464 (H) 10/16/2024 BNP 1392 (H) 10/14/2024 BNP 233 (H) 08/26/2022 - Monitor #HYPOKALEMIA K 3.3 (L) 10/16/2024 - PO replacment, appropriate - Continue IVF NS w/ K 20 @ 50 cc/hr. - Recheck x1 later in the day. #GLAUCOMA - Continue home drops. - COSOPT 22.3-6.8 mg/mL Eye Soln 1 Drop (Dorzolamide-Timolol) - Latanoprost 0.005 % Eye Soln 1 Drop (XALATAN) I certify that this patient requires continuous cardiac monitoring: yes If yes, rationale: afib with RVR Current cardiac rhythm: NSR FLUIDS: NS w/ K 20 @ 50 cc/hr DVT prophylaxis: heparin Current Diet Orders (From admission to next 48h) Start Ordered 10/14/24 1615 Cardiac Diet (2.3 gm Na, Low Chol, No Caffeine/No Decaf) NOW Comments: WARNING: THIS IS THE COMMENTS SECTION. DIET ORDERS ARE NOT ACCEPTED IN THIS AREA. 10/14/24 1605 Code Status Status Date Full Code MonOct 14, 2024 3:08 PM Note written with assistance of PABLO Archibald Discussed plan of care with Dr. Palma. Patient/family were informed of the treatment plan and they expressed understanding and agreed. Electronically signed by: Eder Farnsworth D.O., PGY-3 [facility] 10/16/2024 2:54 PM Associated attestation - Gume Palma D.O., D.O. - 10/17/2024 2:32 PM PDT I was not physically present with the Resident during the history and/or physical exam of this patient. I have not personally examined this patient. I have not documented an independent entry in the medical record. The history, physical, diagnostics and treatment plan were reviewed with the Resident. I agree withthe treatment plan and medical decision making with any exceptions noted below. Prescriptions, if any, written or ordered for this patient were reviewed and authorized by me. Reviewed note of Dr. Eder Farnsworth D.O., PGY-3 and agree. Electronically signed by: GUME HIGGINS DO 10/17/2024 2:32 PM * Papito Hutchinson M.D.Richie - 10/15/2024 11:36 PM PDT \MOD BP elevated. No tachy anymore Patient asymptomatic Will resume home clonidine patch and lisinopril Documenting for rounding purposes Electronically signed by: PAPITO HUTCHINSON MD Department of Internal Medicine [facility] Pager: [phone] Please page between the hours of 7pm-7am Otherwise page HMOD 10/15/2024 11:56 PM * Eder Farnsworth (D.Navneet) D.OLamar - 10/15/2024 8:15 AM PDT Saira Belle INPATIENT PROGRESS NOTE Name: Saira Belle Today's Date: 10/15/2024 8:15 AM Hospital Day #: LOS: 1 days Reason for visit: atrial fibrillation with rapid ventricular response HOSPITAL COURSE: Saira Belle is a 79 year old female with long history of Afib (on Warfarin), secondary hypercoag, SSS s/p PPM (05/2023 - [employer]), HFpEF (EF 55-60%), HTN, HLD, CKD 3, chronic UTIs (on Macrobid for years), and prior hospitalizations for a fib (secondary to dehydration and orthostatic hypotension) who presented to [facility] for GI symptoms and diarrhea and was referred to EDdue to Afib RVR ATRIAL FIBRILLATION W RAPID VENTRICULAR RESPONSE and possible gastroenteritis. Her rate improved with IVF and amiodarone. 10/14/2024: - TTE showed normal systolic function with EF 55-60%.TTE also showed >50% IVC collapse. - CT abdomen showed mild wall thickening of the colon that may be related to underdistention versusmild colitis. Colonic diverticulosis. 10/15/2024: - K 3.0 (L) 10/15/2024 - potassium repletion - EZRA improved with fluids. - Frequent loose stools. - Labs reviewed: APTT 52, PT INR 2.1, WBC 9.7, HGB 10.9, HCT 32.1, Neutrophils 8.21, Lymphocytes 0.74, fasting glucose 125, Na 133, K 3.0, Albumin 2.4, Per HPI: Saira Belle is a 79 year old female with hx of diastolic heart failure, AFib on diltiazem and warfarin, CAD, hypertension, renal artery stenosis, hyperlipidemia, prediabetes, and diverticulosis, who was sent from urgent care for tachycardia. Patient presented to urgent care for left-sided abdominal pain x3d. Unknown trigger, no unusual food/exposures. She went on a [employer] cruise 2 weeks ago. Started w/ abdominal bloating x3 days, decreased appetite, and ?? not feeling well. ?? Abdominal pain started she had palpitations, dull chest pain, and shortness of breath. Reports palpitations, chest pain, and shortness of breath resolved that same day, but abdominal pain persisted. No sick contacts or unusual dietary changes. New diarrhea topday, single episode, yellow in color, and she has not noticed any bleeding. No nausea, vomiting, chest pain, or pressure. Shortly after patient presented with stable vitals at urgent Care, she became tachycardic with EKG showing AFib with RVR. Patient was subsequently sent to the ED. Hx of atrial fibrillation and normally asymptomatic, currently w/ palpitations/racing heart She has been eating and drinking less than usual over the past few days, with minimal intake over the last three days. No fever, chills, runny nose, or sore throat. No leg swelling and can sleep flat at night without difficulty breathing. She is generally active, usually walking two miles and riding a bike, no associated chest pain/pressure/palpitations, but has not been active in the past few days due to feeling unwell. Pacemaker Incision site: Left infraclavicular site well healed. Clean and Intact. Pacemaker: Device: [employer] (Guidant) Model, Accolade L331 DOI: 05/23/2023 MRI Safe: yes Subjective/Overnight events: Patient reports she is having uncontrollable diarrhea that comes so quickly and frequently she cannot make it to the commode. Patient admits to mild nausea with oral potassium but otherwise denies chest pain, emesis, palpitations, and headache. Tele: NSR DIET Cardiac INS/OUTS: Intake/Output Summary (Last 24 hours) at 10/15/2024 0815 Last data filed at 10/15/2024 0408 Gross per 24 hour Intake 400 ml Output -- Net 400 ml POCT GLUCOSE No results for input(s): RBSPOCT in the last 72 hours. No data found. Medications: IV's Scheduled Meds: PRN Meds: Amiodarone intraVENOUS 0.5 mg/min (10/14/242053) Heparin (Porcine) in D5W intraVENOUS 700 Units/hr (10/15/24154) Potassium Chloride 40 mEq Oral X1 Potassium Chloride 40 mEq Oral X1 Atorvastatin 10 mg Oral Daily Dorzolamide-Timolol 1 Drop Both eyes BID Latanoprost 1 Drop Both eyes QHS Heparin Per Protocol 1 Each intraVENOUS see instruction cefTRIAXone 2 g intraVENOUS Q24H (INPT RN check 1st dose) metroNIDAZOLE 500 mg Oral Q8H (INPT RN check 1st dose) Ondansetron 4 mg intraVENOUS Q6H PRN Melatonin 3 mg Oral QHS PRN Polyethylene Glycol 3350 17 g Oral Daily PRN Acetaminophen 650 mg Oral Q4H PRN Or Acetaminophen 650 mg Rectal Q4H PRN Acetaminophen 650 mg Oral Q4H PRN Or Acetaminophen 650 mg Rectal Q4H PRN Dextromethorphan-guaiFENesin 10 mL Oral Q4H PRN Home Meds: Current Facility-Administered Medications for the 10/14/24 encounter (Hospital Encounter): Triamcinolone Acetonide Inj 40 mg (KENALOG), Triamcinolone Acetonide Inj 40 mg (KENALOG), Lidocaine (PF) 10 mg/mL (1 %) Inj 2 mg (XYLOCAINE), Lidocaine (PF) 10 mg/mL (1 %) Inj 2 mg (XYLOCAINE), Outpatient Medications Marked as Taking for the 10/14/24 encounter (Hospital Encounter): Atorvastatin (LIPITOR) 10 mg Oral Tab, Take 1 tablet by mouth daily to lower cholesterol and keep arteries open, Lisinopril (PRINIVIL/ZESTRIL) 5 mg Oral Tab, Take 1 tablet by mouth daily to control blood pressureand/or prevent strokes and help the heart and kidneys, Warfarin 2 mg Oral Tab, Take by mouth as directed by Anticoagulation clinic, dilTIAZem (CARDIZEM CD) 120 mg Oral 24hr SR Cap, Take 1 capsule by mouth 2 times a day, Warfarin 2 mg Oral Tab, Take 1 and 1/2 tablets by mouth daily except 2 tablets Monday or as directed by the anticoagulation clinic, cloNIDine (CATAPRES-TTS 1) 0.1 mg/24 hr TD Weekly Patch, Apply 1 Patch to skin every 7 days . Remove old patch before applying the new one, dilTIAZem (CARDIZEM) 30 mg Oral Tab, Take 1 tablet by mouth up to 3 times a day as needed atrial fibrillation episodes, Nitrofurantoin Monohydrate (MACROBID) 100 mg Oral Cap, Take 1 capsule by mouth daily, Latanoprost (XALATAN) 0.005 % Opht Drop, Instill 1 Drop in both eyes daily at bedtime for Glaucoma, Dorzolamide-Timolol (COSOPT) 22.3-6.8 mg/mL Opht Drop, Instill 1 Drop in both eyes 2 times a day, Vital Signs: vital signs for 24 hours were reviewed Estimated body mass index is 25.24 kg/m?? as calculated from the following: Height as of this encounter: 1.626 m (5' 4). Weight as of this encounter: 66.7 kg (147 lb 0.8 oz). Patient Vitals for the past 24 hrs: BP Temp Pulse Resp SpO2 Height Weight 10/15/24 0600 -- -- -- -- -- -- 66.7 kg (147 lb 0.8 oz) 10/15/24 0515 (!) 160/91 -- 87 20 -- -- -- 10/15/24 0400 -- 36.5 ??C (97.7 ??F) -- -- -- -- -- 10/15/24 0035 (!) 156/77 36.5 ??C (97.7 ??F) 85 20 95 % -- -- 10/15/24 0000 (!) 169/55 -- 92 20 -- -- -- 10/14/24 2000 112/73 36.8 ??C (98.2 ??F) (!) 129 15 93 % -- -- 10/14/24 1900 121/84 36.5 ??C (97.7 ??F) -- -- -- -- -- 10/14/24 1800 -- -- (!) 130 19 94 % -- -- 10/14/24 1639 110/74 36.1 ??C (97 ??F) (!) 124 17 95 % -- -- 10/14/24 1600 95/63 -- (!) 120 28 95 % -- -- 10/14/24 1550 -- -- -- 24 -- -- -- 10/14/24 1530 106/71 -- 100 23 92 % -- -- 10/14/24 1500 97/75 -- (!) 118 23 92 % 1.626 m (5' 4) 64 kg (141 lb) 10/14/24 1450 96/71 -- (!) 123 19 93 % -- -- 10/14/24 1440 114/73 -- (!) 135 24 94 % -- -- 10/14/24 1430 (!) 119/103 -- (!) 122 22 93 % -- -- 10/14/24 1420 100/57 -- (!) 123 25 -- -- -- 10/14/24 1410 122/73 -- (!) 138 22 95 % -- -- 10/14/24 1400 136/83 -- (!) 131 19 94 % -- -- 10/14/24 1350 108/68 -- (!) 117 24 93 % -- -- 10/14/24 1346 108/68 -- (!) 131 23 94 % -- -- 10/14/24 1340 96/57 -- (!) 154 (!) 31 95 % -- -- 10/14/24 1334 117/75 -- (!) 128 19 93 % -- -- 10/14/24 1330 (!) 88/69 -- (!) 134 27 93 % -- -- 10/14/24 1320 101/78 -- (!) 131 23 97 % -- -- 10/14/24 1307 111/75 -- (!) 113 24 93 % -- -- 10/14/24 1300 94/72 -- (!) 133 27 95 % -- -- 10/14/24 1230 126/64 -- (!) 134 28 94 % -- -- 10/14/24 1225 125/81 -- (!) 138 27 96 % -- -- 10/14/24 1215 108/70 -- (!) 140 27 94 % -- -- 10/14/24 1200 116/62 -- (!) 111 25 95 % -- -- 10/14/24 1143 126/83 -- (!) 131 20 96 % -- -- 10/14/24 1130 119/70 -- (!) 124 26 96 % -- -- 10/14/24 1121 102/61 -- (!) 172 (!) 29 99 % -- -- 10/14/24 1117 102/73 -- (!) 153 (!) 31 96 % -- -- 10/14/24 1112 104/58 -- (!) 162 23 96 % -- -- 10/14/24 1107 -- -- (!) 175 22 97 % -- -- 10/14/24 1106 114/73 -- (!) 179 24 -- -- -- 10/14/24 1051 103/55 36.4 ??C (97.6 ??F) 64 20 98 % -- 64.4 kg (141 lb 15.6 oz) 10/14 0700 - 10/15 0659 In: 400 [P.O.:400] Out: - Patient Vitals for the past 168 hrs: Weight 10/15/24 0600 66.7 kg (147 lb 0.8 oz) 10/14/24 1500 64 kg (141 lb) 10/14/24 1051 64.4 kg (141 lb 15.6 oz) Current weight 147 lb 0.8 oz Last previously recorded weight 142 lb on 10/14/24 Weight change is +5 lb 0.8 oz Physical Examination: General: alert, well appearing, and in no distress HEENT: dry oral mucosa, no pharynx erythma Neck: supple Lungs: normal effort, clear to auscultation CVS: normal rate, regular rhythm, normal S1, S2, no murmurs Abdomen: soft, nondistended, no masses, no rebound tenderness, mild tenderness to palpation LUQ/LMQ/LLQ Neurologic:alert, oriented, normal speech, no focal findings or movement disorder noted Extremities: peripheral pulses normal, no pedal edema, reduced skin turgor Labs: CBC: Recent Labs 10/15/24 0557 10/14/24 1106 WBC 9.7 14.2* HGB 10.9* 11.8 HCT 32.1* 36.2 PLT 270 327 Electrolytes Recent Labs 10/15/24 0557 10/14/24 1106 NA 133* 131* K 3.0* 4.0 CL 102 97* CO2 21 20* BUN 14 16 CR 0.77 1.25* GFR 78 44* Differential: Recent Labs 10/15/24 0557 10/14/24 1106 NEUT 85.1 83.7 LYMPH 7.7 0.74* 8.5 1.21 MONO 0.59 6.1 0.89 6.3 EOS 0.4 0.04 0.2 0.03 MCV 84.0 86.0 Ca++ / Mg++ / Phos+: Recent Labs 10/15/24 0557 10/14/24 1404 CA -- 8.0* MG 2.0 2.5 PHOS -- 2.9 Liver Function Panel: Recent Labs 10/14/24 1106 TBILI 1.3* AST 20 ALT 15 ALKP 62 LIPASE 30 Troponin / INR / PTT / BNP: Recent Labs 10/15/24 0557 10/14/24 2254 10/14/24 1614 10/14/24 1555 10/14/24 1106 TROP -- -- -- 24* 21* INR 2.1* -- 2.0* -- 1.9* PTT -- 46* -- -- 40* Lipid Panel: CHOL 176 11/09/2023 TRIG 108 11/09/2023 HDL 69 11/09/2023 LDL CALC 88 11/09/2023 LDL 68 04/08/2021 CHOL/HDL 2.6 11/09/2023 TRIGLYCERIDE, NONFASTING 96 04/08/2021 Hemoglobin A1c: HGBA1C 5.8 11/09/2023 Albumin: PREALBUMIN 21 04/13/2021 ALB 2.4 (L) 10/15/2024 Lactate: Recent Labs 10/14/24 1404 10/14/24 1106 LACTATE 1.0 2.3* ] Urinalysis: No results for input(s): USG, ULEUKESTER, UNITRITE, UPROTEIN, UAGLU, UKET, UROBILINOGEN, UABILI, UAHGB, UWBC, URBC, UEPITH, UBACT, UPH in the last 72 hours. BLOOD SUGARS No data found. CULTURES Blood culture collected 10/14/2024 - in process Microbiology Results ID Description Status Collection Date/Time [id number] BLOOD CULTURE In process 10/14/24 1555 [id number] BLOOD CULTURE In process 10/14/24 1614 [id number] CLOSTRIDIUM DIFFICILE GDH AG, TOXINS A, B W REFLEX TO PCR Final result 10/15/24 1011 Result Value Flag Comment CLOSTRIDIOIDES (CLOSTRIDIUM) DIFFICILE AG AND TOXINS A+B, STOOL Negative A finding of ???Indeterminate??? represents discrepant immunoassay results obtained for GDH (antigen specific to C. difficile) and toxin production. Molecular testing (nucleic acid amplification) will follow to confirm results. [id number] BACTERIAL GI PANEL (SALMONELLA, SHIGELLA/EIEC, CAMPYLOBACTER, SHIGA TOXIN DNA), STOOL, MULTIPLEX PCR In process 10/14/24 2238 IMAGING Transthoracic Echo, Limited (10/14/2024) - Left Ventricle: Normal systolic function with an estimated EF of 55 - 60%. No regional wall motion abnormalities observed. - IVC/SVC: Normal (<2.1 cm) IVC size with greater than 50% collapse, estimated right atrial pressure of 3 mmHg (normal). CT Abdomen and Pelvis w/o Contrast (10/14/2024) IMPRESSION: - Mild wall thickening of the colon most pronounced involving the transverse and descending colon. This may be related to underdistention versus mild colitis. No bowel obstruction or free air. - Colonic diverticulosis. - Mild nonspecific bibasilar lung opacities which may reflect atelectasis versus infiltrates with small right and trace left layering pleural effusions. - Arterial atherosclerosis. Chest XR (10/14/2024) FINDINGS/IMPRESSION: - No interval change. There is unchanged left chest wall pacemaker. The lungs remain clear. There is unchanged slightly elevated right hemidiaphragm. No pleural effusions are seen. The cardiomediastinal silhouette is normal. - There is unchanged arteriosclerosis of the aortic knob. TRANSTHORACIC ECHO, LIMITED (TTE) [[id number]] 05/23/2023 INTERPRETATION SUMMARY: - Limited study for EF - Left Ventricle: Left ventricle size is normal. Mild septal thickening. Normal systolic function with an estimated EF of 55 - 60%. - Right Ventricle: Right ventricle size is normal. Normal systolic function. - Aortic Valve: Mild aortic regurgitation. FINDINGS: - Left Ventricle Left ventricle size is normal. Mild septal thickening. Normal systolic function with an estimated EF of 55 - 60%. - Right Ventricle Right ventricle size is normal. Normal systolic function. - Left Atrium Left atrium size is normal. - Right Atrium Right atrium size is normal. - Aortic Valve Mild aortic regurgitation. No aortic stenosis. - Mitral Valve Trace mitral regurgitation. - Pulmonic Valve Not well visualized. - Ascending Aorta The sinus of Valsalva measures 3.5 cm (Z-score 1.10). Monitor 04/26/23 CONCLUSIONS: - There were 4 patient triggered events which correlated with Afib with elevated rates with some episodes including ventricular ectopy. - Patient with multiple pauses: - 10sec pause on monitor which occurred at 2:57AM likely while patient was asleep. - 6.8sec pause on monitor which occurred at 1:28AM likely while patient was asleep. - There were 4 episodes of NSVT with the longest lasting 6 beats. - There was a 7% Afib burden with the longest duration lasting 23hrs and 8 min. The average heart rate while in Afib was 113 bpm. ANTIBIOTICS Current IV Antibiotics (From admission, onward) Start Stop Route Frequency Ordered 10/14/24 1630 cefTRIAXone Adapter Vial 2 g (ROCEPHIN) -- IV EVERY 24 HOURS (INPT RN CHECK 1ST DOSE) 10/14/24 1603 Current Oral Antibiotics (From admission, onward) Start Stop Route Frequency Ordered 10/14/24 1630 metroNIDAZOLE Tab 500 mg (FLAGYL) -- Oral EVERY 8 HOURS (INPT RN CHECK 1ST DOSE) 10/14/24 1603 Daily Assessment of Antibiotics (if applicable): Indication for antibiotic usage: diverticulitis. Based on available culture results and clinical status, antibiotic therapy has been adjusted, narrowed or stopped. Date reassessed: 10/15/2024 Anticipated stop date or duration of antibiotics: TBD Date reassessed: 10/15/2024 LINES Peripheral IV: Peripheral IV 20 G Anterior;Left Wrist-Site Intervention: None required Peripheral IV 22 G Left Basilic;Forearm-Site Intervention: None required Peripheral IV 20 G Proximal;Right Basilic;Forearm #1-Site Intervention: None required CONSULTANTS: INPATIENT INTERNAL MEDICINE CONSULT INPATIENT CARDIOLOGY CONSULT ASSESSMENT AND PLAN: Principal Problem: ATRIAL FIBRILLATION W RAPID VENTRICULAR RESPONSE Active Problems: HTN Overview: Discontinued mazxide during hospitalization Last Admit Date: 04/24/2012 due to Orthostatic hypotension - started metoprolol. Metoprolol changed to carvedilol 10/2012 while in [place] for uncontrolled Hypertension Start hydrochlorothiazide 12.5 mg 05/22/2012 Cardiac MRI performed on 11/02/12: indication: severe Hypertension with suspected severe concentric hypertrophy, assess muscle mass. Rule out renal artery stenosis. result of cardiac MRI with normal EF at 69%, normal muscle mass and mass index, there is no evidence of concentric hypertrophy. There is no evidence of hypertrophic cardiomyopathy and no compaction....normal right Ventricular size and systolic function....abdomnial aorta with mild atheromatous changes, there is no abdominal aortic aneurysm...mild right renal artery stenosis, likely moderate renal artery stenosis. HYPERLIPIDEMIA HX OF HYSTERECTOMY, TOTAL ALLERGIC RHINITIS OSTEOPOROSIS Overview: 08-19-2011 DXA T-score: -1.2 (left neck) Z-score: 0.4 FRAX Scores are not Elevated DIVERTICULOSIS OF COLON ATHEROSCLEROSIS AORTA BILATERAL RENAL ARTERY STENOSIS Overview: Renal ultrasound 11/02/12 from [place]: 1. Unable to see the origin of the left renal artery due to calcification. There are elevated velocities in the left renal artery suggestion a hemodynamically significant stenosis. If clinically indicated, an angiogram with intent to treat could be considered. 2. Normal ultrasound appearance of the kidneys, bilaterally. Cardiac MRI performed on 11/02/12 in [place]: indication: severe Hypertension with suspected severe concentric hypertrophy, assess muscle mass. Rule out renal artery stenosis. result of cardiac MRI with normal EF at 69%, normal muscle mass and mass index, there is no evidence of concentric hypertrophy. There is no evidence of hypertrophic cardiomyopathy and no compaction....normal right Ventricular size and systolic function....abdomnial aorta with mild atheromatous changes, there is no abdominal aortic aneurysm...mild right renal artery stenosis, likely moderate renal artery stenosis. PREDIABETES OSTEOARTHRITIS OF LEFT KNEE DIASTOLIC HEART FAILURE, CHRONIC (HFPEF) ATRIAL FIBRILLATION, UNSPECIFIED ANTICOAGULATION MONITORING, INR 2.0-3.0 Overview: IP referral for afib ELEVATED TROPONIN I HX OF VT, UNSPECIFIED TYPE RECURRENT UTI SUPRAVENTRICULAR TACHYCARDIA, NONSUSTAINED #ATRIAL FIBRILLATION W RAPID VENTRICULAR RESPONSE #HYPERTENSION > Patient has long history of a fib (last seen by outpatient cards 06/14/2023) with PPM (05/23/2023 for tachy [place]), HFpEF (55-60%), hyperlipidemia (on statin) and hypertension followed by nephrology for renal artery stenosis. She has intermittent history of hospitalization for a fib, vomiting and orthostatic hypotension since 2011, most recently 2022 for a fib with rvr. In current admission TTE showed normal systolic function with EF 55-60%.TTE also showed >50% IVC collapse and with history of loose stools and dry oral mucosa/reduced skin turgor, concern for dehydration. Patient's rate improved with IVF and amiodarone gtt, sp amiodarone x1 and Cardizem x2. - Amiodarone in Dextrose 360 mg/200 mL (1.8 mg/mL) IV Premix - Heparin for DVT prophylaxis - Atorvastatin Tab 10 mg (LIPITOR) - Due to IVC >50% collapse and frequency of loose stools with dry oral mucosa/reduced skin turgor, restart IVF. - IVF NS w/ K 20 @ 50 cc/hr - Cardiology consult - recs appreciated. Per Cardiology note Dr. Galo 10/14: - IVF - agree with amiodarone for rate control - resume home dilt after volume resuscitated and BP can tolerate - continue warfarin, inr therapeutic since 06/28/23, last INR 2.1 (H) 10/15/2024 - DCCV for unstable rvr - hold BP rx currently given soft BP - address underlying causes of tachy #ABDOMINAL PAIN WITH DIARRHEA #DIVERTICULOSIS OF COLON > Abdominal pain and diarrhea with WBC'S AUTO 9.7 10/15/2024. CT abdomen shows colonic diverticulosis and mild wall thickening of the colon most pronounced involving the transverse and descending colon. This may be related to underdistention versus mild colitis. No bowel obstruction or free air. - C. Diff testing, hx of chronic Macrobid use with multiple episodes of loose stools - Monitor stools - Continue Rocephin and Flagyl - Start metamucil BID, consider balance of loose stools as way for body to expel viral gastroenteritis vs risk of dehydration and electrolyte abnormalities further worsening Afib with RVR # EZRA w/ HISTORY OF BILATERAL RENAL ARTERY STENOSIS CREAT 0.77 10/15/2024 BUN 14 10/15/2024 >EZRA resolved with IVF - Continue IVF in the setting of increased loose BMs #ELEVATED BNP > Patient does not have signs of HF (no pitting edema or pulmonary crackles). CXR showed clear lungs and no pleural effusions with a normal cardiomediastinal silhouette. BNP 1392 (H) 10/14/2024 BNP 233 (H) 08/26/2022 BNP 307 (H) 04/09/2018 - unknown cause, likely secondary to increased cardiac demand and work from tachycardia on admission #HYPOKALEMIA K 3.0 (L) 10/15/2024 - potassium replacement 40 mEq PO - IVF NS w/ K 20 @ 50 cc/hr - Recheck x1 later in the day #GLAUCOMA - Continue home drops. - COSOPT 22.3-6.8 mg/mL Eye Soln 1 Drop (Dorzolamide-Timolol) - Latanoprost 0.005 % Eye Soln 1 Drop (XALATAN) I certify that this patient requires continuous cardiac monitoring: yes If yes, rationale: a fib with RVR, dehydration as potential trigger per hx of hospitalizations for similar complaint and hx, still having multiple episodes of loose stools Current cardiac rhythm: normal sinus rhythm FLUIDS: NS w/ K 20 @ 50 cc/hr DVT prophylaxis: heparin Current Diet Orders (From admission to next 48h) Start Ordered 10/14/24 1615 Cardiac Diet (2.3 gm Na, Low Chol, No Caffeine/No Decaf) NOW Comments: WARNING: THIS IS THE COMMENTS SECTION. DIET ORDERS ARE NOT ACCEPTED IN THIS AREA. 10/14/24 1605 Code Status Status Date Full Code MonOct 14, 2024 3:08 PM Note written with assistance of PABLO Archibald Discussed plan of care with Dr. Palma. Patient/family were informed of the treatment plan and they expressed understanding and agreed. Electronically signed by: Eder Farnsworth D.O., PGY-3 [facility] 10/15/2024 2:28 PM * Kelly Monreal M.D., M.D. - 10/14/2024 10:54 AM PDT Patient has undergone a preliminary evaluation for the purpose of accelerating the pertinent diagnostic workup. No detailed history was taken and no physical exam was done. A definitive evaluation will be done by the assigned ED Provider. Electronically signed by: KELLY MONREAL MD 10/14/2024 10:54 AM documented in this encounter H&P Notes * Catalino Shine M.D., M.D. - 10/14/2024 1:52 PM PDT INTERNAL MEDICINE HISTORY AND PHYSICAL Date of Admission: 10/14/2024 Admitted from: Emergency Department CHIEF COMPLAINT: CHEST PAIN and ABDOMINAL PAIN HPI: Saira Belle is a 79 year old female with hx of diastolic heart failure, AFib on diltiazem and warfarin, CAD, hypertension, renal artery stenosis, hyperlipidemia, prediabetes, and diverticulosis, who was sent from urgent care for tachycardia. Patient presented to urgent care for left-sided abdominal pain x3d. Started w/ abdominal bloating x3 days, decreased appetite, and ?? not feeling well. ?? Abdominal pain started she had palpitations, dull chest pain, and shortness of breath. Reports palpitations, chest pain, and shortness of breath resolved that same day, but abdominal pain persisted. No sick contacts or unusual dietary changes. new diarrhea topday, single episode, yellow in color, and she has not noticed any bleeding. No nausea, vomiting, chest pain, or pressure. Shortly after patient presented with stable vitals at urgent Care, she became tachycardic with EKG showing AFib with RVR. Patient was subsequently sent to the ED. Hx of atrial fibrillation and normally asymptomatic, currently w/ palpitations/racing heart She has been eating and drinking less than usual over the past few days, with minimal intake over the last three days. No fever, chills, runny nose, or sore throat. No leg swelling and can sleep flat at night without difficulty breathing. She is generally active, usually walking two miles and riding a bike, no associated chest pain/pressure/palpitations, but has not been active in the past few days due to feeling unwell. Prior Functional Status: ADL's: independent: ambulation. Use of assistive devices prior to hospitalization: None. Living Arrangement: house. Baseline Cognition: recognizes/recalls daily routine, people without prompts or repetition according to self. Past Medical History: Diagnosis Date HX OF [...] FIBRILLATION, UNSPECIFIED 10/21/2015 HTN (HYPERTENSION) HYPERLIPIDEMIA SYNCOPE Past Surgical History: Procedure Laterality Date COLONOSCOPY, DIAGNOSTIC FLEXIBLE 08/22/2017 HIP REPLACEMENT TOTAL Left 04/28/2021 Procedure: HIP REPLACEMENT TOTAL; Laterality: Left; Surgeon: David Palacios M.D., M.D. INSERTION PACEMAKER, DUAL CHAMBER, PERMANENT INTRAVENOUS, INITIAL N/A 05/23/2023 Procedure: CARDIAC PACEMAKER INSERTION, DUAL CHAMBER, PERMANENT INTRAVENOUS, INITIAL; Laterality: N/A; Surgeon: Fanny Jade M.D., M.D. APPENDECTOMY CATARACT EXTRACTION BY PHACOEMULSIFICATION WO IOL Left 09/30/2014 Procedure: CATARACT EXTRACTION BY PHACOEMULSIFICATION WO IOL; Laterality: Left; Surgeon: Juancarlos Arboleda) CATARACT SURGERY W IOL-PHACO Right 07/17/2014 Procedure: CATARACT SURGERY W IOL-PHACO; Laterality: Right; Surgeon: Juancarlos Arboleda) CATARACT SURGERY W IOL-PHACO Left 08/12/2014 Procedure: CATARACT SURGERY W IOL-PHACO; Laterality: Left; Surgeon: Juancarlos Arboleda) COLONOSCOPY W REMOVAL OF LESION USING SNARE 02/29/2012 COLONOSCOPY, DIAGNOSTIC FLEXIBLE 02/29/2012 PAST SURGICAL HISTORY, OTHER right shoulder surgery - due to impingement PAST SURGICAL HISTORY, OTHER bladder lift TOTAL ABDOMINAL HYSTERECTOMY, W/WO REMOVAL OF TUBE(S), W/WO REMOVAL OF OVARY(S) TRANSORAL EGD, FLEXIBLE, DIAGNOSTIC 07/11/2012 Family History Problem Relation Age of Onset Hypertension Mother Heart Disease Mother Father Stroke Mother Father Diabetes Grandmother Colon Cancer None Breast Cancer Sister double masectomy Social History Tobacco Use Smoking Status Never Passive exposure: Never Smokeless Tobacco Never Tobacco Comments once per week-wine Social History Substance and Sexual Activity Alcohol Use Not Currently Alcohol/week: 0.6 oz Types: 1 Standard drinks or equivalent per week Comment: occ History Drug Use No Most Recent Immunizations Administered Date(s) Administered COVID-19 mRNA LNP-S, PF (MODERNA),50 MCG/0.25 mL 11/09/2021 COVID-19 mRNA LNP-S, PF (Moderna) 08/18/2020 DT ped (Diphtheria,Tetanus) 09/05/1995 INF (Influenza) unspecified formulation 03/03/2017 INFS 6mos-adult (Flulaval quadrivalent) (influenza) 04/05/2018 INFS Pres Free (quadrivalent) (influenza) 03/22/2016 INFS pres free 65 yrs and over high dose (Fluzone quadrivalent 04/14/2023 INFS pres free 65 yrs and over high dose (Fluzone trivalent) (influenza) 03/11/2024 INFS pres free 65yrs and over (Fluad trivalent) (influenza) 03/08/2019 INFS pres free 6mos-adult (Fluarix quadrivalent) (influenza) 03/22/2016 INFs (Influenza split virus ). 03/19/2012 INFs 4yrs and over (FLUVIRIN) (Influenza) 03/10/2015 PCV13 ([id number]) (Pneumococcal conjugate, 13 valent) 03/10/2015 PPSV23 (Pneumococcal polysaccharide) 07/15/2011 Tdap (ADACEL) (Tetanus, diphtheria, acellular pertussis) 08/12/2022 Tdap (Tetanus, diphtheria, acellular pertussis) 08/01/2012 ZOS (Herpes zoster recombinant) Shingrix 08/06/2019 ZOS (Zostervirus live, shingles) 08/01/2012 ALLERGIES: Allergies Allergen Reactions Demerol [Meperidine Hcl] Meperidine Skin Rash and/or Hives Non-Steroidal Anti-Inflammatory Agents [id number] Heart Failure. Exception to this NSAID intolerance is aspirin 81- 325mg daily and topical or ophthalmic nsaids' [id number] Heart Failure. Exception to this NSAID intolerance is aspirin 81- 325mg daily and topical or ophthalmic nsaids' Codeine And Opiate Derivatives Skin Rash and/or Hives Hydrochlorothiazide Hyponatremia in setting of HCTZ Hyponatremia in setting of HCTZ Oxycodone-Acetaminophen Skin Rash and/or Hives Oxycodone-Aspirin Skin Rash and/or Hives Penicillins Class Skin Rash and/or Hives Cefuroxime Axetil Skin Rash and/or Hives Noted with antibiotics given in [place]. Noted with antibiotics given in [place]. Sulfa (Sulfonamide Antibiotics) Skin Rash and/or Hives Current Facility-Administered Medications for the 10/14/24 encounter (Hospital Encounter) Medication Triamcinolone Acetonide Inj 40 mg (KENALOG) Triamcinolone Acetonide Inj 40 mg (KENALOG) Lidocaine (PF) 10 mg/mL (1 %) Inj 2 mg (XYLOCAINE) Lidocaine (PF) 10 mg/mL (1 %) Inj 2 mg (XYLOCAINE) Outpatient Medications Marked as Taking for the 10/14/24 encounter (Hospital Encounter) Medication Sig Atorvastatin (LIPITOR) 10 mg Oral [...] in both eyes 2 times a day Physical Examination O: Patient Vitals for the past 24 hrs: Temp Temp Source Pulse BP Resp O2 Delivery SpO2 10/14/24 1400 -- -- (!) 131 136/83 19 RA 94 % 10/14/24 1350 -- -- (!) 117 108/68 24 RA 93 % 10/14/24 1346 -- -- (!) 131 108/68 23 -- 94 % 10/14/24 1340 -- -- (!) 154 96/57 (!) 31 -- 95 % 10/14/24 1334 -- -- (!) 128 117/75 19 -- 93 % 10/14/24 1330 -- -- (!) 134 (!) 88/69 27 -- 93 % 10/14/24 1320 -- -- (!) 131 101/78 23 RA 97 % 10/14/24 1307 -- -- (!) 113 111/75 24 RA 93 % 10/14/24 1300 -- -- (!) 133 94/72 27 -- 95 % 10/14/24 1230 -- -- (!) 134 126/64 28 RA 94 % 10/14/24 1225 -- -- (!) 138 125/81 27 NC 96 % 10/14/24 1215 -- -- (!) 140 108/70 27 RA 94 % 10/14/24 1200 -- -- (!) 111 116/62 25 RA 95 % 10/14/24 1145 -- -- -- -- -- RA -- 10/14/24 1143 -- -- (!) 131 126/83 20 -- 96 % 10/14/24 1130 -- -- (!) 124 119/70 26 -- 96 % 10/14/24 1121 -- -- (!) 172 102/61 (!) 29 -- 99 % 10/14/24 1117 -- -- (!) 153 102/73 (!) 31 -- 96 % 10/14/24 1112 -- -- (!) 162 104/58 23 -- 96 % 10/14/24 1107 -- -- (!) 175 -- 22 -- 97 % 10/14/24 1106 -- -- (!) 179 114/73 24 -- -- 10/14/24 1051 36.4 ??C (97.6 ??F) Oral 64 103/55 20 RA 98 % Estimated body mass index is 25.15 kg/m?? as calculated from the following: Height as of an earlier encounter on 10/14/24: 1.6 m (5' 3). Weight as of this encounter: 64.4 kg (141 lb 15.6 oz). No intake or output data in the 24 hours ending 10/14/24 1503 General: comfortable appearing Eyes: Pupils equal, round, reactive to light Respiratory: Clear to auscultation in all kruger bilaterally. Normal work of breathing, speaking infull sentences. Cardiovascular: tachycardic and irregular rhythm. No murmurs, rubs, or gallops. Abd: Soft, mild TTP in LLQ, nondistended, normoactive bowel sounds. No umbilical hernia. No costovertebral angle tenderness. : Not indicated Rectal: Not indicated Skin: Warm, dry, no rashes. Neuro: Sensation intact grossly. Moving all limbs appropriately Musculoskeletal: no pitting edema Psychiatric: Normal affect and mood. Oriented x 4 (name, place, date, situation). Medical Decision Making Labs: Recent Labs 10/14/24 1106 WBC 14.2* NEUT 83.7 HGB 11.8 HCT 36.2 MCV 86.0 PLT 327 NA 131* K 4.0 CL 97* CO2 20* BUN 16 CR 1.25* RBS 131 No results for input(s): RBSPOCT in the last 72 hours. Recent Labs 10/14/24 1106 TROP 21* BNP 1,392* LACTATE (mmol/L) Date Value 10/14/2024 1.0 Recent Labs 10/14/24 1106 TBILI 1.3* ALKP 62 ALT 15 AST 20 LIPASE 30 No results for input(s): UPH, USG, ULEUKESTER, UNITRITE, UPROTEIN, UAGLU, UKET, UROBILINOGEN, UABILI, UHGB in the last 72 hours. No results for input(s): UWBC, URBC, UEPITH, UBACT in the last 72 hours. CHOL 176 11/09/2023 TRIG 108 11/09/2023 HDL 69 11/09/2023 LDL CALC 88 11/09/2023 LDL 68 04/08/2021 CHOL/HDL 2.6 11/09/2023 TRIGLYCERIDE, NONFASTING 96 04/08/2021 HGBA1C 5.8 11/09/2023 Radiology XR CHEST 1 VIEW Narrative: CLINICAL HISTORY: Reason: chest pain / abdomen pain COMPARISON: March 11, 2024 Impression: FINDINGS/IMPRESSION: No interval change. There is unchanged left chest wall pacemaker. The lungs remain clear. There is unchanged slightly elevated right hemidiaphragm. No pleural effusions are seen. The cardiomediastinal silhouette is normal. There is unchanged arteriosclerosis of the aortic knob. The report is intended as communication between the interpreting radiologist and the ordering physician. If you've questions how this report integrates with your overall care, please follow up with the ordering physician. This report electronically signed by Edilson Beth on 10/14/2024 11:[address] Test: none found Medicine 10/14/2024 EKG : MUSE My review of the EKG shows afib RVR hr in 160s, ST depressions noted in v4-v6,lead II, no st elevations noted. Results for orders placed during the hospital encounter of 05/23/23 TRANSTHORACIC ECHO, LIMITED (TTE) [[id number]] 05/23/2023 10:02 AM Interpretation Summary Limited study for EF Left Ventricle: Left ventricle size is normal. Mild septal thickening. Normal systolic function with an estimated EF of 55 - 60%. Right Ventricle: Right ventricle size is normal. Normal systolic function. Aortic Valve: Mild aortic regurgitation. Findings Echo Findings Left Ventricle Left ventricle size is normal. Mild septal thickening. Normal systolic function withan estimated EF of 55 - 60%. Right Ventricle Right ventricle size is normal. Normal systolic function. Left Atrium Left atrium size is normal. Right Atrium Right atrium size is normal. Aortic Valve Mild aortic regurgitation. No aortic stenosis. Mitral Valve Trace mitral regurgitation. Pulmonic Valve Not well visualized. Ascending Aorta The sinus of Valsalva measures 3.5 cm (Z-score 1.10). Microbiology Microbiology Results None ASSESSMENT/PLAN: Active Hospital Problems (Principal) ATRIAL FIBRILLATION W RAPID VENTRICULAR RESPONSE SUPRAVENTRICULAR TACHYCARDIA, NONSUSTAINED RECURRENT UTI HX OF VT, UNSPECIFIED TYPE ELEVATED TROPONIN I ANTICOAGULATION MONITORING, INR 2.0-3.0 IP referral for afib ATRIAL FIBRILLATION, UNSPECIFIED DIASTOLIC HEART FAILURE, CHRONIC (HFPEF) OSTEOARTHRITIS OF LEFT KNEE PREDIABETES ATHEROSCLEROSIS AORTA BILATERAL RENAL ARTERY STENOSIS Renal ultrasound 11/02/12 from [place]: 1. Unable to see the origin of the left renal artery due to calcification. There are elevated velocities in the left renal artery suggestion a hemodynamically significant stenosis. If clinically indicated, an angiogram with intent to treat could be considered. 2. Normal ultrasound appearance of the kidneys, bilaterally. Cardiac MRI performed on 11/02/12 in [place]: indication: severe Hypertension with suspected severe concentric hypertrophy, assess muscle mass. Rule out renal artery stenosis. result of cardiac MRI with normal EF at 69%, normal muscle mass and mass index, there is no evidence of concentric hypertrophy. There is no evidence of hypertrophic cardiomyopathy and no compaction....normal right Ventricular size and systolic function....abdomnial aorta with mild atheromatous changes, there is no abdominal aortic aneurysm...mild right renal artery stenosis, likely moderate renal artery stenosis. DIVERTICULOSIS OF COLON OSTEOPOROSIS 08-19-2011 DXA T-score: -1.2 (left neck) Z-score: 0.4 FRAX Scores are not Elevated HX OF HYSTERECTOMY, TOTAL ALLERGIC RHINITIS HYPERLIPIDEMIA HTN Discontinued mazxide during hospitalization Last Admit Date: 04/24/2012 due to Orthostatic hypotension - started metoprolol. Metoprolol changed to carvedilol 10/2012 while in [place] for uncontrolled Hypertension Start hydrochlorothiazide 12.5 mg 05/22/2012 Cardiac MRI performed on 11/02/12: indication: severe Hypertension with suspected severe concentric hypertrophy, assess muscle mass. Rule out renal artery stenosis. result of cardiac MRI with normal EF at 69%, normal muscle mass and mass index, there is no evidence of concentric hypertrophy. There is no evidence of hypertrophic cardiomyopathy and no compaction....normal right Ventricular size and systolic function....abdomnial aorta with mild atheromatous changes, there is no abdominal aortic aneurysm...mild right renal artery stenosis, likely moderate renal artery stenosis. Resolved Hospital Problems No resolved problems to display. Or No diagnosis found. Afib RVR Torch Operator consulted: formal rec pending: - not adequate rate control w/ IV pushes of diltiazem - BP improved w/ fluid bolus, likely hypovolemia related w/ EZRA on labs - cautious fluid bolus as BNP newly elevated, although prior TTE (05/2023) w/ EF of 55 - 60%. S/p NS 500cc x2 - agree w/ amiodarone for rate control. - Hold clonidine and lisinopril and diltiazem due to low blood pressure. - hold home warfarin -> switch to heparin gtt when INR less than 2, given possible need for procedures #elevated BNP - unclear cause - no clincal signs of HF, no pitting edema/crackles, CXR relatively clear - hold off on diuretics as appears hypovolemic - repeat TTE when HR improved Abdominal Pain with Diarrhea Abdominal pain and diarrhea with elevated white blood cell count. CT scan of abdomen pending. - Order CT scan of the abdomen noncon, pending - Hold antibiotics until imaging results are available. #recurrent UTI EZRA w/ hx of bilateral renal artery stenosis - discharged from nephrology clinic - likely prerenal, given poor oral intake - will reassess after IV fluids - consider repeat renal US if not improving #glaucoma -> cont home drops Daily Assessment of Antibiotics (if applicable): Indication for antibiotic usage: pending . Based on available culture results and clinical status, antibiotic therapy has been adjusted, narrowed or stopped. Date reassessed: 10/14/2024 Anticipated stop date or duration of antibiotics: pending clinical course Date reassessed: 10/14/2024 Diet: Current Diet Orders (From admission to next 48h) Start Ordered 10/14/24 1100 DIET, NPO NOW Comments: PLEASE REMEMBER TO DISCONTINUE MEDS AND INFORM NURSING 10/14/24 1054 DVT PROPHYLAXIS: yes, see medication order CODE STATUS: full level of care ADVANCED DIRECTIVE: None, info given. Designates Jarrett as surrogate medical decision maker. I certify that this patient requires Telemetry level of care:yes If yes, rationale afib rvr Life Care Planning PHYSICIAN LIFE CARE PLANNING SERIOUS ILLNESS TREATMENT GOALS 10/14/2024 Assessed for decision making capacity and has decision making capacity. Conversation held with:Patient. Discussion summary: full code. Electronically signed by: Catalino Shine MD Department of Internal Medicine [facility] 10/14/2024 3:03 PM documented in this encounter Consult Notes * Haris Esquivel (L.C.S.W.), L.C.S.W - 10/21/2024 10:09 AM PDT MEDICAL SOCIAL WORK ADULT INITIAL ASSESSMENT SUMMARY: PSYCHOSOCIAL SUMMARY REFERRAL REASON: LOS Patient is a 79 year old Ethiopian speaking female who presented with CHEST PAIN and ABDOMINAL PAIN and was admitted to hospital on 10/14/2024 for ATRIAL FIBRILLATION W RAPID VENTRICULAR RESPONSE with a 7 day length of stay. Patient has a history of HTN, diverticulosis of colon, atherosclerosis of aorta, diastolic heart failure, AFIB, hx of VT, recurrent UTI and AFIB w/RVR. COOK RESTAURANT spoke to patient to complete psychosocial assessment. Patient presented alert and oriented (x4) to person, place, time, and situation and receptive to participate in assessment. Patient reports coping adequately during hospitalization and states she may be discharging home today. Patient reports she resides with her significant other Jarrett and has two daughters who reside outof state. Patient adds that Jarrett has 2 kids, with a son residing in [place]. Patient reports she is independent with her ADLs and ambulation. Patient notes that she has been ambulating to and from the bathroom during hospitalization. Both patient and her significant other drive. Patient isretired and denied any financial concerns at time of assessment. Patient's anticipated discharge plan is to return home with her significant other Jarrett. Patient denied any psychosocial needs, but was accepting of community resource brochure. ADVANCE DIRECTIVE Patient does not have an Advanced Directive on file and patient/family were educated on the purposeand benefits of document. Patient verbally designated Jarrett De Luna (significant other) as their surrogate decision maker. RESOURCES DISCUSSED/PROVIDED [facility] Community Resource Pamphlet (caregiver agencies included) LCP: Advance Directive and surrogate decision maker discussed SOCIAL DETERMINANTS OF HEALTH SURVEY Patient/family: denied any needs COOK RESTAURANT: provided patient education and linkage to [facility] and resources based on patient's answers and needs SOCIAL WORK INTERVENTION- LONG VIEW OF CARE Reason for referral: education/resources Psychosocial barriers/risk for readmission: no Consult request addressed: yes SECURED RESOURCES Referrals: see resources provided list FRONT OFFICE JAVA DEVELOPER Follow up/Warm Handoff: During Hospitalization ASSESSMENT Saira Belle, [id number], is a 79 year old female, referred byMD on 10/21/2024 Interview done with: patient/family Primary care provider is: Wilmer Ludwig) Relevant medical diagnosis requiring social work intervention: no SOCIAL SITUATION Patient lives: at home Social Network: family/friends Marital status: see summary Ethnicity: White [73] Language Spoken: see summary Judaism/spiritual belief: did not disclose Cultural/spiritual/hoahaoism factors influencing treatment: No PATIENT FUNCTIONING Functional limitations: none noted ADL concerns: none identified Equipment used for ADL's: none Transportation issues due to ADL limitations: no MENTAL STATUS Mental mood and affect appropriate for circumstances, alert, oriented to person, place, time, and situation Behavior: within normal limits PSYCHIATRIC AND SUBSTANCE ABUSE Psychiatric issues: Denies Psychotropic medication use: refer to medication list Substance abuse: Denies Depression symptoms noted: Denies Past suicidal/homicidal ideation or attempts: Denies Suicidal risk assessed: Denies suicidal ideation. MEDICAL DECISION-MAKING End of Life Issues: none identified Advance Directive completed: None, info given Location of Advance Directive: copy provided (to be completed) Surrogate Decision-Maker(s) Named: Jarrett De Luna (significant other) LCP NON-MD CONVERSATION: yes GENERAL CLINICAL IMPRESSION Apparent age: appears stated age Attire: appropriate Grooming: appropriate Hygiene: appropriate Eye contact: WNL Insight: unimpaired Judgment: unimpaired Reliability: good Impulse: WNL LEGAL/PROTECTIVE ISSUES Abuse / Violence / Neglect issues: No Are there guns in the home: did not disclose Current case open: No Mandated report initiated: No Other legal issues: none reported or identified ECONOMIC Employment status: retired Occupation: Data Unavailable Health insurance: Payor: MEDICARE / Plan: SNR ADV D(E) PLAN [id number] / Product Type: Medicare - Risk (for [place] only) / Housing issues: none reported or identified FINANCIAL RESOURCES Income source: see summary Adequate to meet needs: marginally adequate CONTACTS Extended Emergency Contact Information Primary Emergency Contact: JARRETT DE LUNA Address: [address] [place] [address] [facility] Mobile Relation: Significant other Secondary Emergency Contact: [place] [address] [facility] Mobile Relation: Daughter Electronically signed by: Haris Lala LCSW Department of Medical Social Work [facility] [phone] ([place]) * Orlin Galo (D.OLamar), D.OLamar - 10/14/2024 3:16 PM PDTAssociated Order(s): INPATIENT CARDIOLOGY CONSULT INPATIENT CARDIOVASCULAR NEW CONSULTATION NOTE 10/14/2024 Saira Belle : 1945 REFERRING MD : Dr. Shine PRIMARY ORE TESTER: Dr Roche Saira Belle is a 79 year old female with long h/o Afib, secondary hypercoag, SSS s/p PPM, HFpEF,HTN, HLD, CKD 3, who presented to [facility] for GI sxs and diarrhea and was referred to ED due to Afib RVR Per admitting provider: Saira Belle is a 79 year old female with hx of diastolic heart failure, AFib on diltiazem and warfarin, CAD, hypertension, renal artery stenosis, hyperlipidemia, prediabetes, and diverticulosis, who was sent from urgent care for tachycardia. Patient presented to urgent care for left-sided abdominal pain x3d. Started w/ abdominal bloating x3 days, decreased appetite, and ?? not feeling well. ?? Abdominal pain started she had palpitations, dull chest pain, and shortness of breath. Reports palpitations, chest pain, and shortness of breath resolved that same day, but abdominal pain persisted. No sick contacts or unusual dietary changes. new diarrhea topday, single episode, yellow in color, and she has not noticed any bleeding. No nausea, vomiting, chest pain, or pressure. Shortly after patient presented with stable vitals at urgent Care, she became tachycardic with EKG showing AFib with RVR. Patient was subsequently sent to the ED. Hx of atrial fibrillation and normally asymptomatic, currently w/ palpitations/racing heart She has been eating and drinking less than usual over the past few days, with minimal intake over the last three days. No fever, chills, runny nose, or sore throat. No leg swelling and can sleep flat at night without difficulty breathing. She is generally active, usually walking two miles and riding a bike, no associated chest pain/pressure/palpitations, but has not been active in the past few days due to feeling unwell. INR has been therapeutic since 06/28/23, last 2.4 09/24/24 [place] 14.2 Lactate elevated on presentation EZRA Bnp 1400, but not volume overloaded clinically or on CXR, and currently in Afib with RVR Clinical presentation with poor po intake and gastroenteritis Rate improved with IVF, amio CARDIOVASCULAR TESTING TTE 05/23/23 Limited study for EF Left Ventricle: Left ventricle size is normal. Mild septal thickening. Normal systolic function with an estimated EF of 55 - 60%. Right Ventricle: Right ventricle size is normal. Normal systolic function. Aortic Valve: Mild aortic regurgitation. Monitor 04/26/23 The predominant underlying rhythm was sinus rhythm with a HR range of 56-197 bpm, and an average rate of 79bpm. Max sinus rate was 112 bpm. There were 4 patient triggered events which correlated with Afib with elevated rates with some episodes including ectopy. Patient with multiple pauses: 10sec pause on monitor which occurred at 2:57AM likely while patient was asleep. 6.8sec pause on monitor which occurred at 1:28AM likely while patient was asleep. There were 4 episodes of NSVT with the longest lasting 6 beats. There was a 7% Afib burden with the longest duration lasting 23hrs and 8 min. The average heart rate while in Afib was 113 bpm. SVEs/VEs were rare. CONCLUSIONS There were 4 patient triggered events which correlated with Afib with elevated rates with some episodes including ventricular ectopy. Patient with multiple pauses: 10sec pause on monitor which occurred at 2:57AM likely while patient was asleep. 6.8sec pause on monitor which occurred at 1:28AM likely while patient was asleep. There were 4 episodes of NSVT with the longest lasting 6 beats. There was a 7% Afib burden with the longest duration lasting 23hrs and 8 min. The average heart rate while in Afib was 113 bpm. ROS Review of Systems As above PAST HISTORY Patient Active Problem List: HTN HYPERLIPIDEMIA HX [...] TROPONIN I NOT CURRENT SMOKER HX OF VT, UNSPECIFIED TYPE OSTEOARTHRITIS OF RIGHT FOOT ANEMIA RECURRENT UTI BILAT OPEN ANGLE GLAUCOMA ATYPICAL CHEST PAIN SHORTNESS OF BREATH OSTEOARTHRITIS OF LEFT FOOT ACQUIRED CEREBRAL ATROPHY OSTEOARTHRITIS OF RIGHT HIP SUPRAVENTRICULAR TACHYCARDIA, NONSUSTAINED Allergies : Demerol [meperidine hcl], Meperidine, Non-steroidal anti- inflammatory agents, Codeine and opiate derivatives, Hydrochlorothiazide, Oxycodone-acetaminophen, Oxycodone-aspirin, Penicillins class, Cefuroxime axetil, and Sulfa (sulfonamide antibiotics) reports that she has never smoked. She has never been exposed to tobacco smoke. She has never used smokeless tobacco. She reports that she does not currently use alcohol after a past usage of about 0.6 oz of alcohol per week. She reports that she does not use drugs. Family History Problem Relation Age of Onset Hypertension Mother Heart Disease Mother Father Stroke Mother Father Diabetes Grandmother Colon Cancer None Breast Cancer Sister double masectomy MEDICATIONS Atorvastatin 10 mg Oral Daily Dorzolamide-Timolol 1 Drop Both eyes BID Latanoprost 1 Drop Both eyes QHS [START ON 10/15/2024] Nitrofurantoin Monohydrate 100 mg Oral Daily Heparin Per Protocol 1 Each intraVENOUS see instruction Triamcinolone Acetonide 40 mg Intra-articular X1 Triamcinolone Acetonide 40 mg Intra-articular X1 Lidocaine (PF) 2 mg Injection X1 Lidocaine (PF) 2 mg Injection X1 Amiodarone intraVENOUS 1 mg/min (10/14/24 1455) Followed by Amiodarone intraVENOUS OBJECTIVE BP 97/75 Pulse (!) 118 Temp 36.4 ??C (97.6 ??F) Resp 23 Wt 64.4 kg (141 lb 15.6 oz) SpO2 92% BMI 25.15 kg/m?? Wt Readings from Last 3 Encounters: 10/14/24 64.4 kg (141 lb 15.6 oz) 10/14/24 64.4 kg (142 lb) 08/27/24 64.7 kg (142 lb 10.2 oz) Estimated body mass index is 25.15 kg/m?? as calculated from the following: Height as of an earlier encounter on 10/14/24: 1.6 m (5' 3). Weight as of this encounter: 64.4 kg (141 lb 15.6 oz). No intake or output data in the 24 hours ending 10/14/24 1516 General: AOx3; NAD HEENT - oropharynx clear, sclera non icteric, lids clear jugular venous pressure is normal. Chest - Unlabored respirations CV - S1/2, irreg, tachy Ext - No peripheral edema LABS CREAT 1.25 (H) 10/14/2024 CREAT 0.83 09/10/2024 CREAT 0.93 11/09/2023 HGB 11.8 10/14/2024 HGB 11.6 06/03/2024 HGB 11.2 (L) 05/02/2024 BUN 16 10/14/2024 BUN 25 (H) 06/02/2023 BUN 20 (H) 05/22/2023 HGBA1C 5.8 11/09/2023 HGBA1C 5.9 04/25/2023 HGBA1C 5.9 10/26/2022 K 4.0 10/14/2024 K 3.7 09/24/2024 K 3.4 (L) 09/10/2024 TROP I, HIGH SENS 21 (H) 10/14/2024 TROP I, HIGH SENS 38 (H) 06/02/2023 TROP I, HIGH SENS 46 (H) 06/02/2023 TROPONIN I <0.02 04/14/2020 TROPONIN I 0.26 (H) 04/10/2018 TROPONIN I 0.22 (H) 04/10/2018 BNP 1392 (H) 10/14/2024 BNP 233 (H) 08/26/2022 BNP 307 (H) 04/09/2018 LDL 68 04/08/2021 LDL 96 10/08/2020 LDL 64 04/12/2018 ASSESSMENT/PLAN : Ms. Belle is a pleasant 79 year old female with: Saira Belle is a 79 year old female with long h/o Afib, secondary hypercoag, SSS s/p PPM, HFpEF,HTN, HLD, CKD 3, who presented to [facility] for GI sxs and diarrhea and was referred to ED due to Afib RVR Per admitting provider: Saira Belle is a 79 year old female with hx of diastolic heart failure, AFib on diltiazem and warfarin, CAD, hypertension, renal artery stenosis, hyperlipidemia, prediabetes, and diverticulosis, who was sent from urgent care for tachycardia. Patient presented to urgent care for left-sided abdominal pain x3d. Started w/ abdominal bloating x3 days, decreased appetite, and ?? not feeling well. ?? Abdominal pain started she had palpitations, dull chest pain, and shortness of breath. Reports palpitations, chest pain, and shortness of breath resolved that same day, but abdominal pain persisted. No sick contacts or unusual dietary changes. new diarrhea topday, single episode, yellow in color, and she has not noticed any bleeding. No nausea, vomiting, chest pain, or pressure. Shortly after patient presented with stable vitals at urgent Care, she became tachycardic with EKG showing AFib with RVR. Patient was subsequently sent to the ED. Hx of atrial fibrillation and normally asymptomatic, currently w/ palpitations/racing heart She has been eating and drinking less than usual over the past few days, with minimal intake over the last three days. No fever, chills, runny nose, or sore throat. No leg swelling and can sleep flat at night without difficulty breathing. She is generally active, usually walking two miles and riding a bike, no associated chest pain/pressure/palpitations, but has not been active in the past few days due to feeling unwell. INR has been therapeutic since 06/28/23, last 2.4 09/24/24 Leuks 14.2 Lactate elevated on presentation EZRA Bnp 1400, but not volume overloaded clinically or on CXR, and currently in Afib with RVR Clinical presentation with poor po intake and gastroenteritis Rate improved with IVF, amio # Afib rvr - poor po intake, gastroenteritis, leuks # secondary hypercoag # SSS s/p PPM # HFpEF # HTN # HLD # CKD 3 - IVF - agree with amio - resume home dilt after volume resuscitated and BP can tolerate - cont warfarin, inr therapeutic since 06/28/23 - DCCV for unstable rvr - hold BP rx currently given soft BP - address underlying causes of tachy Thank you for allowing us to participate in the care of this patient. Please do not hesitate to call back if we can be of any further assistance or with any questions, concerns, or abn cardiac results. Cardiology to remain available peripherally with prn rounding, please call back with questions/concerns Electronically signed by Dr. Galo Department of Internal Medicine, Cardiology [facility] 10/14/2024 3:16 PM documented in this encounter Nursing Notes * Dominique Garcia), R.N. - 10/21/2024 4:38 PM PDT Discharge Time: 17:20 pm To: home Accompanied by: spouse Via: private Vehicle Nursing summary at discharge: Patient alert and oriented x 4 , vital signs stable . Afebrile .On room air with O2 sat above 92% .Denies any shortness of breath or chest pain . Denies any abdomen pain . Diet tolerated well . Ambulated to the bathroom with stand by assist . Voided adequately . Cleared for discharge home . Spouseat the bedside . Discharge instructions , medications , follow up physician appointment reviewed and AVS given to patient/spouse . All belongings with patient at discharge . Patient/family verbalizedunderstandings . Patient discharge home with spouse in stable condition . * Tatiana Coffman (Viki Lopez - 10/21/2024 4:17 PM PDT Case Management Discharge Summary Note DISCHARGE TO HOME Team F1 Chart reviewed / case discussed with luz GUSMAN. Patient [address]: [address] [place] [address] [place] [address] Phone: KPNS ONLY TEXT [phone] Address/Phone confirmed: Yes Transportation: Discharge Transportation: Private Car, Medicare IM Letter Issued On: LCP Not Covered Discharge Plan: Disposition / Placement: Discharge Disposition Plan: Home (++) Discharge Referrals: Infusion Center: Discharge DME: LONG VIEW OF CARE PLAN Nutrition Resources:Nutrition: No Needs Identified Resource Provided: , , , . Details: Discharge Nutrition Details: significant other to provide meal prep and grocery Exercise/Socialization: Exercise/Socialization: No Needs Identified Resource Provided: , , Details: Discharge Exercise/Socialization Details: significant other to provide social support Caregiver Resources: CareGiver: No Needs Identified Resource Provided: , , Details: Discharge Caregiver Details: significant other to provide care at home Transportation Resources: Transportation: No Needs Identified Resource Provided: , , Details: Discharge Transportation Details: significant other to provide trnasport home AD/POLST: Advance Directive: No Needs Identified / POLST: No Needs Identified Resource Provided: / Details: / RESOURCES (other resources) : Other Resources: No Needs Identified Resource Provided: , , Details: Other Discharge Resources Details: none identified at this time CONCLUSION Discharge plan developed with: Discharge plan developed with: Patient. Patient's post-discharge goals of care and treatment preferences considered in discharge plan. Patient/family/caregiver in agreement and aware of plans. Above plans communicated with DC plan communicated with: MD (++), Name of MD: Dr Jeffries . it service delivery manager to remain available for any emerging discharge planning needs/issues. Please call casemanager for any questions/changes in patient's status. In HOSPITAL CHART ONLY: Click here to launch flowsheet to view complete [facility] CM Assessment/Discharge Plan. This link is not intended to be used in Chart Review. Electronically signed by: TATIANA COFFMAN RN Case Manager 10/21/2024 4:17 PM * Dominique Garcia R.N. RLamarNLamar - 10/21/2024 1:52 PM PDT MID-SHIFT CARE PLAN UPDATE: Patient Problem: Atrial Fibrillation with Rapid Ventricular response Hooks findings related to problem: Patient alert and oriented x 4 , vital signs stable . Afebrile .On room air with O2 sat above 92% .Denies any shortness of breath or chest pain . Currently Sinus rhythm on the telemonitor , pacing at times . Denies any abdomen pain . Diet tolerating well . Ambulated to the bathroom with stand by assist . Voiding adequately . Plan of care reviewed with patient and pt's spouse at the bedside . Fall prevention program maintained. Bed lowest position, SR up x 2, call light and personal items within reach. T Rail Turner socks provided. Activity supervised as needed. Safety measures maintained ,instructed to use the call light as needed , and call light within reach . Problem: Adult Inpatient Plan of Care Goal: Plan of Care Review Outcome: Progressing Flowsheets (Taken 10/21/2024 1351) Plan of Care Reviewed With: patient Goal: Patient-Specific Goal (Individualized) Outcome: Progressing Problem: HD Fall Risk Goal: Patient will remain as independent as possible. Patient will have lower fall risk, lower injury risk, and remain safe from falls and injury Outcome: Progressing Problem: Dysrhythmia Goal: Normalized Cardiac Rhythm Outcome: Progressing Problem: Electrolyte Imbalance Goal: Electrolyte Balance Outcome: Progressing Problem: Pain Acute Goal: Optimal Pain Control and Function Outcome: Progressing Problem: Comorbidity Management Goal: Blood Pressure in Desired Range Outcome: Progressing Problem: Skin Injury Risk Increased Goal: Skin Health and Integrity Outcome: Progressing * Vu Mandujano (Pharm.D), PHARM.DLamar - 10/21/2024 10:04 AM PDT Inpatient Pharmacy progress note (warfarin) This is 79 year old female Ht: Ht Readings from Last 1 Encounters: 10/14/24 1.626 m (5' 4) Current Weight: Wt Readings from Last 3 Encounters: 10/19/24 64.1 kg (141 lb 5 oz) 10/14/24 64.4 kg (142 lb) 08/27/24 64.7 kg (142 lb 10.2 oz) Indication: afib Baseline Labs: Recent Labs 10/21/24 0437 INR 3.1* HGB 9.7* HCT 28.7* PLT 494* WARFARIN THERAPY: Recommended INR Range: 2.00 - 3.00 Today's warfarin dose = 1 mg Next INR scheduled on : 10/22 AM Patient currently followed by outpatient anticoagulation clinic ([facility]) with current warfarin dosingof 3 mg/day except 4 mg on Tuesdays. Will dose conservatively given current INR trend. Metronidazole recently discontinued. No s/sx of bleeding noted by nursing. Electronically signed by: VU MANDUJANO PHARM.D. 10/21/2024 3:06 PM * Mahi Kirk R.N., R.N. - 10/20/2024 11:33 PM PDT SUMMARY OF PATIENT PROGRESS: STATUS: Improving Primary Problem: atrial fibrillation with rapid ventricular response . Hooks findings related to primary problem: Patient presented to the ED with complains of palpitations ,chest pain,SOB abdominal pain ,bloatingand decrease appetite ;she was diagnosed with Afib with RVR. She is A/O X 4 able to verbalized her needs .Noted that patient have a dry cough ,cough medication was given as per MD ordered .sating 94-96% on 3 LNC ,no complains of SOB .Blood pressure with in range ,no complains of Chest pain at this time. Ambulatory to the bathroom,continent of bowel and bladder. No complains of pain ,encourage to report any s/sx of pain Skin is clear encourage to turned and reposition at least every two hours . Other hooks findings: Problem: Adult Inpatient Plan of Care Goal: Plan of Care Review Outcome: Progressing Note: Plan of care was discuss with patient verbalized understanding . Problem: HD Fall Risk Goal: Patient will remain as independent as possible. Patient will have lower fall risk, lower injury risk, and remain safe from falls and injury Outcome: Progressing Note: Call light with in reach , bed to the lowest , educated about fall prevention . Nonskid sockson . Problem: Dysrhythmia Goal: Normalized Cardiac Rhythm Outcome: Progressing Note: No epsisodes of diarrhea noted at this time Problem: Pain Acute Goal: Optimal Pain Control and Function Outcome: Progressing Note: No complained of pain at this time , patient was encourage to report any s/sx of pain . Problem: Skin Injury Risk Increased Goal: Skin Health and Integrity Outcome: Progressing Note: Patient skin is clear , she was encourage to reposition at least every 2 hours . * Prince Molina R.N. R.N. - 10/20/2024 3:51 PM PDT Paged MD regarding patients question regarding discharging home. Per MD will call patient to discuss updates. Informed MD Troung patient is requesting a bedside rounding. Electronically signed by: PRINCE MOLINA RN 10/20/2024 3:54 PM * Latrice Fontanez R.N., R.N. - 10/20/2024 11:32 AM PDT SBAR given to EVELIO Heller and RN assumed care. * Vu Mandujano (Pharm.D), PHARM.D. - 10/20/2024 7:44 AM PDT Inpatient Pharmacy progress note (warfarin) This is 79 year old female Ht: Ht Readings from Last 1 Encounters: 10/14/24 1.626 m (5' 4) Current Weight: Wt Readings from Last 3 Encounters: 10/19/24 64.1 kg (141 lb 5 oz) 10/14/24 64.4 kg (142 lb) 08/27/24 64.7 kg (142 lb 10.2 oz) Indication: afib Baseline Labs: Recent Labs 10/20/24 0459 10/20/24 0456 INR 3.1* -- HGB -- 10.0* HCT -- 30.0* PLT -- 435* WARFARIN THERAPY: Recommended INR Range: 2.00 - 3.00 Today's warfarin dose = 0 mg Next INR scheduled on : 10/21 AM Patient currently followed by outpatient anticoagulation clinic ([facility]) with current warfarin dosingof 3 mg/day except 4 mg on Tuesdays. Will dose conservatively given current INR trend and recent initiation of metronidazole. No s/sx of bleeding noted by nursing Electronically signed by: VU MANDUJANO PHARM.D. 10/20/2024 7:47 AM * Abi Puckett R.N. RLamarNLamar - 10/20/2024 6:45 AM PDT SUMMARY OF PATIENT PROGRESS: STATUS: No change Primary Problem: AFIB RVR, LEUKOCYTOSIS Hooks findings related to primary problem: Pt AAO x4, BP stable, afebrile, desats to 87% on RA while sleeping, kept on O2 2LPM via n.c. Remains Afib @ 100-110's at rest and 120-130's with activity. Denies chest pain, no dizziness. Other hooks findings: Pt noted to have urinary frequency and multiple soft mucoid stools, no complaints of abdominal pain. Problem: HD Fall Risk Goal: Patient will remain as independent as possible. Patient will have lower fall risk, lower injury risk, and remain safe from falls and injury Outcome: Progressing Problem: Dysrhythmia Goal: Normalized Cardiac Rhythm Outcome: Progressing Problem: Gastroenteritis Goal: Effective Diarrhea Management Outcome: Progressing Goal: Fluid and Electrolyte Balance Outcome: Progressing * Latrice FontanezR.NLamar) R.N. - 10/19/2024 6:44 PM PDT Problem: Dysrhythmia Goal: Normalized Cardiac Rhythm Outcome: Progressing Intervention: Monitor and Manage Cardiac Rhythm Effect Flowsheets Taken 10/19/2024 1025 Dysrhythmia Management: Valsalva maneuver encouraged other (see comments) Taken 10/19/2024 0800 Stabilization Measures: verbal stimulation provided Problem: Pain Acute Goal: Optimal Pain Control and Function Outcome: Progressing Intervention: Develop Pain Management Plan Flowsheets (Taken 10/19/2024 0208 by Abi PuckettR.N.), R.N.) Pain Intervention: Medication Positioning Breathing Techniques Problem: Gastroenteritis Goal: Effective Diarrhea Management Outcome: Not Progressing Intervention: Manage Diarrhea Flowsheets Taken 10/19/2024 0800 by Latrice Fontanez (R.N.), R.N. Perineal Care: absorbent pad changed Nutrition Interventions: meal set-up provided Taken 10/16/2024 1930 by Arlen AragonR.N.), R.N. Skin Protection: transparent dressing maintained Note: Maintain perineal skin integrity; cleanse promptly, gently and thoroughly; avoid alcohol-containing wipes Patient alert and oriented to self, place, date, and situation. Able to make all needs known. Afib on the monitor, patient. Breathing well on room air; . Patient denies any shortness of breath or chest pain.Patient ambulates with assist to and from the bathroom and repositions self with minimal encouragement. Call light within reach at all times. Bed locked and at lowest position, bed alarm activated. Yellow socks in place. Educated patient on safety.Hourly rounding done by staff. Hooks findings: HR above 120's when ambulating Continue iv atbx * Shante Anglin (Pharm.D), PHARM.D. - 10/19/2024 8:45 AM PDT Inpatient Pharmacy progress note (Warfarin follow-up Note) Wt Readings from Last 1 Encounters: 10/19/24 64.1 kg (141 lb 5 oz) Ht Readings from Last 1 Encounters: 10/14/24 1.626 m (5' 4) Anticoag Indication: afib Recent Labs 10/19/24 0453 INR 2.9* HGB 10.2* HCT 29.6* PLT 370 WARFARIN THERAPY: Goal INR: 2-3. Warfarin (mg): 0 MG today due to rapid increase in INR Next scheduled INR level: tomorrow with AM labs. Electronically signed by: Shante Anglin Clinical Pharmacist Specialist [facility] 10/19/2024 8:45 AM * Abi Puckett.Dorita), R.NLamar - 10/19/2024 6:43 AM PDT SUMMARY OF PATIENT PROGRESS: STATUS: Improving Primary Problem: AFIB RVR, LEUKOCYTOSIS Hooks findings related to primary problem: Pt AAO x4, afebrile, remains NSR throughout shift, elevated SBP 170's-180's, resolved after administering PRN hydralazine iv push. Pt had frequent soft to mucoid BM, small to moderate amount with c/o bloating and left breast pain, relieved by PRN tylenol p.o. Problem: Adult Inpatient Plan of Care Goal: Absence of Hospital-Acquired Illness or Injury Outcome: Progressing Problem: HD Fall Risk Goal: Patient will remain as independent as possible. Patient will have lower fall risk, lower injury risk, and remain safe from falls and injury Outcome: Progressing Problem: Dysrhythmia Goal: Normalized Cardiac Rhythm Outcome: Progressing Problem: Electrolyte Imbalance Goal: Electrolyte Balance Outcome: Progressing Note: Hyponatremia latest Na level 127. Problem: Comorbidity Management Goal: Blood Pressure in Desired Range Outcome: Progressing Note: Requires PRN hydralazine to keep SBP <160mmHg Problem: Gastroenteritis Goal: Effective Diarrhea Management Outcome: Progressing * Lexus TapiaRRegine)Viki - 10/18/2024 7:16 PM PDT SUMMARY OF PATIENT PROGRESS: STATUS: Improving Primary Problem: Atrial Fibrillation with Rapid Ventricular Response Patient is alert and oriented x4, follows commands, and participates in care. Family at bedside. Hooks findings related to primary problem: Problem: Dysrhythmia Goal: Normalized Cardiac Rhythm Outcome: Progressing Note: Patient heart rate 70's-80's, and remained with normal sinus rhythm throughout shift. Other hooks findings: Problem: Diarrhea Goal: Effective Diarrhea Management Outcome: Progressing Note: Patient had three loose soft stools. Problem: Pain Acute Goal: Optimal Pain Control and Function Outcome: Progressing Note: Patient remained pain free throughout the shift. Problem: HD Fall Risk Goal: Patient will remain as independent as possible. Patient will have lower fall risk, lower injury risk, and remain safe from falls and injury Outcome: Progressing Note: Frequent rounding; assist patient with ADL's; Ensure patient is hydrated, monitor nutrition; Maintain bed at lowest position, call light within reach; keep room clutter free; Keep IV lines and cords away from patient; place fall risk sign outside of room, use non-skid socks, fall risk band, and clear patient path. Two bed rails up and bed alarm on. Patient ambulated to bedside commode and tolerated well. No shortness of breath no tachypnea, no tachycardia, no pain reported by patient. * Vu Mandujano (Pharm.D), PHARM.D. - 10/18/2024 7:53 AM PDT Inpatient Pharmacy progress note (warfarin) This is 79 year old female Ht: Ht Readings from Last 1 Encounters: 10/14/24 1.626 m (5' 4) Current Weight: Wt Readings from Last 3 Encounters: 10/18/24 62.6 kg (138 lb 0.1 oz) 10/14/24 64.4 kg (142 lb) 08/27/24 64.7 kg (142 lb 10.2 oz) Indication: afib Baseline Labs: Recent Labs 10/18/24 0456 10/16/24 0548 10/15/24 0812 INR 2.4* < > -- PTT -- -- 52* HEPUNFR -- -- <0.10* HGB 10.0* < > -- HCT 30.8* < > -- PLT 344 < > -- < > = values in this interval not displayed. WARFARIN THERAPY: Recommended INR Range: 2.00 - 3.00 Today's warfarin dose = 1 mg Next INR scheduled on : 10/19 AM Patient currently followed by outpatient anticoagulation clinic ([facility]) with current warfarin dosingof 3 mg/day except 4 mg on Tuesdays. Will dose conservatively given current INR trend and recent initiation of metronidazole Electronically signed by: VU MANDUJANO PHARM.D. 10/18/2024 11:27 AM * Abi Puckett.NLamar), R.N. - 10/18/2024 6:21 AM PDT SUMMARY OF PATIENT PROGRESS: STATUS: Improving Primary Problem: AFIB RVR Hooks findings related to primary problem: Pt AAOx4, no signs of distress,Afib@ 100-115's at start ofshift and converted to NSR at 0503H, SBP improved from higher 80's at start of shift to 100-120's, denies dizziness or chest pain. Other hooks findings: Productive coughing noted, expectorating whitish thin sputum, PRN cough meds given. Had BM, small soft brownish stools, no diarrhea this shift. Problem: Adult Inpatient Plan of Care Goal: Patient-Specific Goal (Individualized) Outcome: Progressing Goal: Absence of Hospital-Acquired Illness or Injury Outcome: Progressing Problem: HD Fall Risk Goal: Patient will remain as independent as possible. Patient will have lower fall risk, lower injury risk, and remain safe from falls and injury Outcome: Progressing Problem: Dysrhythmia Goal: Normalized Cardiac Rhythm Outcome: Progressing Note: converted to NSR@ 0503H Problem: Electrolyte Imbalance Goal: Electrolyte Balance Outcome: Progressing Problem: Pain Acute Goal: Optimal Pain Control and Function Outcome: Progressing Problem: Comorbidity Management Goal: Blood Pressure in Desired Range Outcome: Progressing Problem: Skin Injury Risk Increased Goal: Skin Health and Integrity Outcome: Progressing * Lexus TapiaRHyacinth RLamarNLamar - 10/17/2024 5:54 PM PDT NN-Around 0800 am patient heart rate increased to 160's-170's. Patient blood pressure during this time 146/85 map 105, respiratory rate 18, oxygen saturation 95% on room air, patient denies pain, patient asymptomatic. NN-0815 am notified doctor Eder Farnsworth about heart rate in the 170's. Administered cardiac scheduled medications diltiazem as ordered and PRN diltiazem. Received additional orders to administer two doses of diltiazem IV, amiodarone bolus and continuous Iv infusion, and carvedilol throughout shift. Labs were reviewed and magnesium level was obtained. Received orders for magnesium replacement, administered as ordered. NN-1306 pm after administering carvedilol notified doctor Eder Farnsworth of patient blood pressure is 91/65 heart rate currently 115 to 130's. No new orders at this time, continue with current plan. NN-1331 pm heart rate now 100 to 119, doctor Farnsworth aware. NN-1353 pm labs were obtained for magnesium and potassium checks. Received orders for potassium replacement. 1445 pm Systolic blood pressure in 80's, received order for 500 ml of normal saline IV bolus. NN- Systolic blood pressure 80's to low 100's, doctor Farnsworth aware. No new orders, continue with current plan. * Lexus Tapia)Viki - 10/17/2024 5:50 PM PDT SUMMARY OF PATIENT PROGRESS: STATUS: Improving Primary Problem: Atrial Fibrillation with Rapid Ventricular Response Hooks findings related to primary problem: Problem: Dysrhythmia Goal: Normalized Cardiac Rhythm Outcome: Progressing Note: Heart rate 100's-180's , received orders to administer cardiac medications. After interventions done, heart rate in low 100's now. Other hooks findings: Problem: Electrolyte Imbalance Goal: Electrolyte Balance Outcome: Progressing Note: Replace electrolytes as ordered. Magnesium and potassium replaced. Problem: Diarrhea Goal: Effective Diarrhea Management Outcome: Progressing Note: Patient did not have episodes of diarrhea today. Problem: Skin Injury Risk Increased Goal: Skin Health and Integrity Outcome: Progressing Note: Reposition patient every 2 hours; keep patient free from moisture, change linen/clothing; place foam dressings on bony skin areas; Specialized mattress; Off load legs; Use pillows and wedges asprescribed. Problem: Pain Acute Goal: Optimal Pain Control and Function Outcome: Progressing Note: Monitor for s/s of pain and medicate as ordered. Problem: HD Fall Risk Goal: Patient will remain as independent as possible. Patient will have lower fall risk, lower injury risk, and remain safe from falls and injury Outcome: Progressing Note: Frequent rounding; assist patient with ADL's; Ensure patient is hydrated, monitor nutrition; Maintain bed at lowest position, call light within reach; keep room clutter free; Keep IV lines and cords away from patient; place fall risk sign outside of room, use non-skid socks, fall risk band, and clear patient path. Two bed rails up and bed alarm on. Patient remained injury free. * Vu Mandujano (Pharm.D), PHARM.D. - 10/17/2024 11:25 AM PDT Inpatient Pharmacy progress note (warfarin) This is 79 year old female Ht: Ht Readings from Last 1 Encounters: 10/14/24 1.626 m (5' 4) Current Weight: Wt Readings from Last 3 Encounters: 10/17/24 61 kg (134 lb 7.7 oz) 10/14/24 64.4 kg (142 lb) 08/27/24 64.7 kg (142 lb 10.2 oz) Indication: afib Baseline Labs: Recent Labs 10/17/24 0513 10/16/24 0548 10/15/24 0812 INR 2.0* < > -- PTT -- -- 52* HEPUNFR -- -- <0.10* HGB 10.5* < > -- HCT 31.6* < > -- PLT 296 < > -- < > = values in this interval not displayed. WARFARIN THERAPY: Recommended INR Range: 2.00 - 3.00 Today's warfarin dose = 2.5 mg Next INR scheduled on : 10/18 AM Patient currently followed by outpatient anticoagulation clinic ([facility]) with current warfarin dosingof 3 mg/day except 4 mg on Tuesdays Electronically signed by: VU MANDUJANO PHARM.D. 10/17/2024 2:45 PM * Arlen Aragon (R.NLamar), R.N. - 10/17/2024 6:45 AM PDT SUMMARY OF PATIENT PROGRESS: STATUS: No change Primary Problem: AFIB RVR Hooks findings related to primary problem: Pt is a gcs 15, on room air O2 sats at 94%, afebrile, sinus rhythm on tele monitoring, and denies pain. Pt BP over shift in systolic 150s-180mmhg. Pt at 0644 received prn hydralazine for BP of 188/84. RN assessed skin and no skin issues. Pt uses bedban over shift and voids appropriately, RN sent urine specimen. Pt had 3 loose Bms over shift. Pt Ivs flushedon shift, pt running NS woth 20meq KCL at 50ml/hr. Plan of care discussed with pt, pt complies withcare. 2015: Spoke to Dr. 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 Informed that pt 2000 latest BP was 165/86 and pt BP hasbeen elevated in systolic 160s-170smmhg. Informed MOD that pt received prn hydralazine and scheduleBP meds in evening. Dr. Pichardo aware and per MOD, no new orders at this time and ok to notify if BP sytolic greater than 180mmhg. Other hooks findings: Problem: Comorbidity Management Goal: Blood Pressure in Desired Range Outcome: Not Progressing Problem: Adult Inpatient Plan of Care Goal: Plan of Care Review Outcome: Progressing Goal: Optimal Comfort and Wellbeing Outcome: Progressing Problem: Diarrhea Goal: Effective Diarrhea Management Outcome: Progressing Problem: Fall Injury Risk Goal: Absence of Fall and Fall-Related Injury Outcome: Progressing Problem: Electrolyte Imbalance Goal: Electrolyte Balance Outcome: Progressing Problem: Pain Acute Goal: Optimal Pain Control and Function Outcome: Progressing * Reynaldo Pepe (R.NHerlinda, R.NLamar - 10/16/2024 6:19 PM PDT SUMMARY OF PATIENT PROGRESS: STATUS: Improving Primary Problem: Afib with RVR Hooks findings related to primary problem: Elevated BP, Others: Abdominal pain with frequent BM Other hooks findings: Pt a/a/o/4. NSR on the monitor. BP Elevated. Medicated with routine BP meds. Frequent stools, soft pasty dark green/black. Low potassium level, 3.3. Potassium replaced with 60 mEqPO. Pt tolerated well. Assisted in/out of bed to bedside commode. Skin care provided. Problem: Electrolyte Imbalance Goal: Electrolyte Balance Outcome: Progressing Intervention: Monitor and Manage Electrolyte Imbalance Fluid/Electrolyte Management: fluids provided, KCL PO replacement Problem: Dysrhythmia Goal: Normalized Cardiac Rhythm Outcome: Progressing Problem: Fall Injury Risk Goal: Absence of Fall and Fall-Related Injury Outcome: Progressing Intervention: Identify and Manage Contributors Self-Care Promotion: independence encouraged Medication Review/Management: medications reviewed side effects identified Intervention: Promote Injury-Free Environment Safety Promotion/Fall Prevention: fall prevention program maintained muscle strengthening facilitated nonskid shoes/slippers when out of bed safety round/check completed Electronically signed by: REYNALDO PEPE RN 10/16/2024 18:19pm * Rigoberto Avitia (Pharm.D), PHARM.D. - 10/16/2024 4:34 PM PDT PHARMACY WARFARIN INITIAL PROGRESS NOTE SUBJECTIVE: Saira Belle is a 79 year old female on Warfarin for afib. Pharmacy is dosing Warfarin therapy per protocol. Patient Admission Diagnosis: AFIB RVR,LEUKOCYTOSIS Patient Principal Diagnosis: ATRIAL FIBRILLATION W RAPID VENTRICULAR RESPONSE OBJECTIVE: Allergies: Demerol [meperidine hcl], Meperidine, Non-steroidal anti-inflammatory agents, Codeine and opiate derivatives, Hydrochlorothiazide, Oxycodone- acetaminophen, Oxycodone-aspirin, Penicillins class, Cefuroxime axetil, and Sulfa (sulfonamide antibiotics) Weight: Wt Readings from Last 1 Encounters: 10/15/24 66.7 kg (147 lb 0.8 oz) Height: Ht Readings from Last 1 Encounters: 10/14/24 1.626 m (5' 4) LABS: INR 1.8 (H) 10/16/2024 APTT 52 (L) 10/15/2024 WBC'S AUTO 9.6 10/16/2024 HGB 10.8 (L) 10/16/2024 HCT AUTO 32.6 (L) 10/16/2024 PLT'S AUTO 293 10/16/2024 ALT 15 10/14/2024 AST 20 10/14/2024 ALKP 62 10/14/2024 TBILI 1.3 (H) 10/14/2024 ASSESSMENT: - INR GOAL : 2-3 - The most recent INR 1.8 (H) 10/16/2024 PLAN: - Give warfarin 4 MG orally once at 1800 10/16/2024. - Daily INR with AM labs. - CBC daily for 3 days, then every 3 days. - Avoid IM injections (exception: orthopedic post-op patients and vaccines). - Inpatient Pharmacist Specialist will continue to monitor patient's Platelet count, and dose patient's warfarin per protocol. Electronically signed by: RIGOBERTO AVITIA PHARMD Inpatient Pharmacist [facility] 10/16/2024 at 4:34 PM * Mitch Sanchez (R.Dorita)CelestinoNLamar - 10/16/2024 3:36 PM PDT Discharge Planning Progress Note Per Dr. Farnsworth patient will not DC today. Converted to inpatient. Per MD should continue as Stepdown. Electronically signed by: MITCH SANCHEZ RN 10/16/2024 3:36 PM * Renu StarkR.NLamar) RLamarNLamar - 10/16/2024 5:35 AM PDT SUMMARY OF PATIENT PROGRESS: STATUS: Improving Primary Problem: Atrial Fibrillation with Rapid Ventricular Response Hooks findings related to primary problem: Problem: Dysrhythmia Goal: Normalized Cardiac Rhythm Outcome: Progressing Note: HR has been Sinus Rhythm in the 80s and 90s most of the night. No complaints of chest pain orpalpitation. Will continue to monitor. Other hooks findings: Problem: Fall Injury Risk Goal: Absence of Fall and Fall-Related Injury Outcome: Progressing Note: Educated patient on the need of safety, to use call light when getting out of bed. Bed kept in its lowest position. Will continue to monitor * Summer Blanco (R.NLamar) R.NLamar - 10/15/2024 5:15 PM PDT SUMMARY OF PATIENT PROGRESS: Problem: HD Fall Risk Intervention: Harris Fall Risk Interventions Note: Fall precaution in place. at bedside. Problem: Dysrhythmia Goal: Normalized Cardiac Rhythm Note: Sinus rhythm. HR in 80's. Hypertensive. Problem: Diarrhea Goal: Effective Diarrhea Management Note: X3 diarrhea Problem: Electrolyte Imbalance Goal: Electrolyte Balance Intervention: Monitor and Manage Electrolyte Imbalance Note: K replaced. NS with 20meq at 50ml/hr. * Tatiana Coffman R.N., R.N. - 10/15/2024 4:25 PM PDT CASE MANAGEMENT INITIAL ASSESSMENT / DISCHARGE PLANNING NOTE TEAM : Rock CM introduced self and explained role. Plan of care discussed with: patient and Dr Farnsworth Lives with and cared for by: [facility] with significant other Jarrett Level of function prior to admission: independent, ambulate, drives, retired Mentation: aox4 Respiratory: room air Home DME's: none Transport type to home: Jarrett Address on demographics verified: Yes DC Plan: DC to place of residence when ready Chart reviewed/Case discussed with luz GUSMAN. Home Medical Center: Member Residence Area: [facility] Admission Source: Diagnosis: AFIB RVR,LEUKOCYTOSIS Readmission: ; Readmission Score (LACE) Readmission Score (LACE) Total: 9 L-LENGTH OF STAY SCORE: 1 A-EMERGENT ADMISSION SCORE: 3 C-CHARLSON COMORBIDITY SCORE: 5 E-NUMBER OF ED VISITS SCORE: 0 PATIENT INFORMATION Saira Belle is a 79 year old female Language: Preferred Spoken Language: Ethiopian Medical Support Specialist Services Used: Medical Support Specialist Services Used: NO - Patient preferred to use own Ethiopian skills, Legal information: Legal Information: None [address] [address] [place] [id number] Phone: [facility] TEXT [phone] Information Source/ Informant (relationship, name, phone): Information provided by: Patient BENEFITS/FINANCIAL INFO Primary Insurance Coverage(s):Payor: MEDICARE / Plan: SNR ADV D(E) PLAN [id number] / Product Type: Medicare - Risk (for [place] only) / Secondary Insurance Coverage(s): None Is the Patient a ? Is the Patient a ?: No, , DME Coverage: DME Coverage: DME Coverage - Base;DME Coverage - Formulary DME Co-pay/Percent: DME Co-Pay: DME with Copay, DME Copay Percentage: 10% SNF Benefits: SNF Benefits?: Yes (++) Available Days: Available SNF Days: Available Days (++), Available Days: 100, SNF Co-Pay : SNF Co-Pay Amount: 21-100 Days (Indicate Amount Per Day), , Indicate Amount Per Day (21-100 Days): 50 Insurance Issues: Insurance Issues: No, , , MENTAL STATUS/ORIENTATION Prior: Mental Status Level: Alert and Oriented, Alert and Oriented: Person;Time;Place;Event Current: Mental Status Level: Alert and Oriented, Alert and Oriented: Person;Time;Place;Event FUNCTIONAL STATUS Prior: Prior Level of Functioning (ADLs): Prior ADLS Functioning: Independent Prior ADLs Needs Assistance with: , Prior DME: Prior IADLS Functioning: Prior IADLS Functioning: Independent Prior IADLs Needs Assistance with: Prior Financial Concerns Identified: Current: Current Level of Functioning (ADLs): Current ADLS Functioning: Independent Current ADLs Needs Assistance with: , Current IADLS Functioning: Current IADLS Functioning: Independent Current IADLs Needs Assistance with: Current Financial Concerns Identified: PSYCHOSOCIAL Living Arrangements: Living Arrangements: house Home Accessibility: Home Accessibility: no concerns Lives with: Lives With: significant other PreAdmission NECTAR Pre-admit Benefited Services: Details: Nutrition Resources Prior to admission: Nutrition Resources Prior to Admission: None Details: Prior Nutrition Resources - Details: significant other to provide meal prep and grocery ifneeded, pt independant Meal assistance: Nutrition Resources Prior to Admission: None Exercise and Socialization Resources Prior to admission: Exercise and Socialization Resources Prior to Admission: None Details: Prior Exercise and Socialization Resources - Details: significant other to provide social support Caregiver Resources Patient currently has: Caregiver Resources Prior to Admission: None Details: Prior Caregiver Resources - Details: significant other to provide care at home Transportation Resources Patient utilizes the following for transportation: Transportation Resources Prior to Admission: None Details: Prior Transportation Resources - Details: significant other to provide [place] home AD/POLST Advanced Directive Prior to admission: Advance Directives: NO POLST: POLST: No Details: Resources (other resources) Prior to admission: Other Resources Prior to Admission: None Details: Prior Resources (Other) - Details: none identified at this time LIFE CARE PLANNING WELLNESS CONVERSATION PROGRESS NOTE Conversation held with: Patient. Discussed role and reviewed qualities of a Healthcare Decision Maker: No Qualities of a Healthcare Decision Maker include: Agrees to be your health care decision maker Knows your values, wishes, and what is important to you Be able to make decisions on your behalf in difficult situations Agrees to follow your wishes even if they do not agree with them or are different from what they would want for themselves. Explored quality of life: No Explored impact of cultural, hoahaoism, spiritual and/or personal beliefs on healthcare decisions: No Follow-up plan: Patient declined additional resources DISCHARGE PLANNING DISCHARGE PLAN: Discharge Plan Status: Transition/Discharge Plan of Care Acute care required?: Yes (++) Patient requires continued acute care due to:: AFIB Transition or Discharge Plan Status: Anticipated Discharge Disposition Plan: Home (++) Discharge Transportation: Private Car Potential Barriers to Discharge Planning: None Identified at this Time Explained transportation is not usually a covered benefit, unless determined medically necessary bya Physician or may be covered under your benefit package. LONG VIEW OF CARE PLAN Nutrition Resources:Nutrition: No Needs Identified Resource Provided: , , Details: Discharge Nutrition Details: significant other to provide meal prep and grocery Exercise/Socialization: Exercise/Socialization: No Needs Identified Resource Provided: , , Details: Discharge Exercise/Socialization Details: significant other to provide social support Caregiver Resources: CareGiver: No Needs Identified Resource Provided: , , Details: Discharge Caregiver Details: significant other to provide care at home Transportation Resources: Transportation: No Needs Identified Resource Provided: , , Details: Discharge Transportation Details: significant other to provide [place] home AD/POLST: Advance Directive: No Needs Identified / POLST: No Needs Identified Resource Provided: / Details: / RESOURCES (other resources) : Other Resources: No Needs Identified Resource Provided: , , Details: Other Discharge Resources Details: none identified at this time CONCLUSION Discharge plan developed with:Discharge plan developed with: Patient. Patient's post-discharge goals of care and treatment preferences considered in discharge plan. Patient/family/caregiver in agreement and aware of plans. Above plans communicated with DC plan communicated with: MD (++), Name of MD: Dr Farnsworth . it service delivery manager to remain available for any emerging discharge planning needs/issues. Please call casemanager for any questions/changes in patient's status. In HOSPITAL CHART ONLY: Click here to launch flowsheet to view complete CM Assessment/Discharge Plan. This link is not intended to be used in Chart Review. Electronically signed by: TATIANA COFFMAN nutritional health coach 10/15/2024 4:25 PM * Keke Nieves R.N., R.N. - 10/15/2024 3:46 PM PDT 1540 - Assumed care of patient while primary RN Summer is on Lunch Break. Amiodarone drip stopped per Primary RN. Hourly rounds completed. * Lyudmila Rae R.N. RLamarNLamar - 10/15/2024 5:23 AM PDT SUMMARY OF PATIENT PROGRESS: STATUS: No change Primary Problem: afib RVR Hooks findings related to primary problem: Problem: Adult Inpatient Plan of Care Goal: Plan of Care Review Outcome: Progressing Goal: Patient-Specific Goal (Individualized) Outcome: Progressing Goal: Absence of Hospital-Acquired Illness or Injury Outcome: Progressing Goal: Optimal Comfort and Wellbeing Outcome: Progressing Problem: HD Fall Risk Goal: Patient will remain as independent as possible. Patient will have lower fall risk, lower injury risk, and remain safe from falls and injury Outcome: Progressing Problem: Dysrhythmia Goal: Normalized Cardiac Rhythm Outcome: Progressing Problem: Diarrhea Goal: Effective Diarrhea Management Outcome: Progressing Problem: Fall Injury Risk Goal: Absence of Fall and Fall-Related Injury Outcome: Progressing Problem: Electrolyte Imbalance Goal: Electrolyte Balance Outcome: Progressing Other hooks findings: No falls. Fall precautions implemented. Bed is low position. Bed alarm is on. With yellow socks. Bed is in low position. Call light is within reach. Hourly rounding done. Monitored hemodynamic parameters. Monitored fluid intake. Monitored for s/s of abnormal bleeding/clotting. Administered treatments as ordered. Administered medications as ordered. Ff up ca=8.0 with replacement ordered by MOD. Sent stool sample as ordered. Patient is ambulatory to the bedside commode. Skin is intact. On heparin drip and amiodarone drip still. Declines pain. No distress noted. * Anish Dill (R.P.H.), PHARM.D. - 10/15/2024 1:38 AM PDT Inpatient Pharmacy progress note (Heparin - DOSE INCREASE) Wt Readings from Last 1 Encounters: 10/14/24 64 kg (141 lb) Ht Readings from Last 1 Encounters: 10/14/24 1.626 m (5' 4) Anticoag Indication: afib Recent Labs 10/14/24 2254 10/14/24 1614 10/14/24 1106 HEPUNFR <0.10* -- -- INR -- 2.0* 1.9* PTT 46* -- 40* HGB -- -- 11.8 HCT -- -- 36.2 PLT -- -- 327 Goal Heparin UNFR Anti-Xa: 0.3-0.7 Goal aPTT: 65-105 Heparin IV Bolus (Units): 0 UNITS Increase Heparin IV Rate (Units/hr): 700 UNITS/HR. Next scheduled UFH aPTT/Anti-Xa level 10/15 @ 0800. Electronically signed by: Anish Dill, Pharm.D. [facility] 10/15/2024 1:38 AM * Summer Blanco R.N., R.N. - 10/14/2024 7:13 PM PDT MID-SHIFT CARE PLAN UPDATE: Problem: HD Fall Risk Intervention: Harris Fall Risk Interventions Note: Fall precautions in place. Call light in reach. Problem: Dysrhythmia Goal: Normalized Cardiac Rhythm Intervention: Monitor and Manage Cardiac Rhythm Effect Note: Afib RVR. Amio gtt running. Patient is awake/oriented x4. Denies pain. Heparin gtt running at 500u/hr. Afib HR 120's on monitor. Denies SOB, dizziness. Handoff to EVELIO Coreas * Shante Anglin (Pharm.D), PHARM.D. - 10/14/2024 4:12 PM PDT PHARMACY NOTE: HEPARIN (start of therapy) This is a 79 year old female Weight: Wt Readings from Last 3 Encounters: 10/14/24 64 kg (141 lb) 10/14/24 64.4 kg (142 lb) 08/27/24 64.7 kg (142 lb 10.2 oz) Height: Ht Readings from Last 1 Encounters: 10/14/24 1.626 m (5' 4) A.C. Indication: afib Baseline Labs: Recent Labs 10/14/24 1106 INR 1.9* PTT 40* HGB 11.8 HCT 36.2 PLT 327 HEPARIN THERAPY: Recommended Heparin Anti-Xa Range: 0.3-0.7 units/ml No initial Heparin bolus per MD Heparin infusion of 500 units/hr Next Heparin Anti-Xa and aPTT level scheduled in 6 hours Electronically signed by: Shante Anglin Clinical Pharmacist Specialist [facility] 10/14/2024 4:13 PM documented in this encounter ED Notes * Eliseo Power), R.N. - 10/14/2024 1:10 PM PDT Assumed care of pt. No acute distress noted. Pt awake alert and oriented. Resp even and unlabored. Pt denies any complaints of chest pain or sob at time. Pt is a fib with rvr on hospital monitor. Pt here for evaluation of llq abd pain with bloating. Denies any abd pain at this time. 1334 pt had a run of vtach. Reported feeling a brief episode of sob. Denies any chest pain. Md aware 1350 md at bedside talking with pt 1405 internal medicine Md at bedside for evaluation. 1445 pt to be admitted to hospital pending bed placement. Pt continues to be a fib with rvr. 1450 report to Blake LOPEZ for break coverage. 1500 denies any complaints of pain at this time. Pt reports her abd only hurts when pressing on it.Denies any sob or palpitations. 1607 pt to be admitted to 2108a. Report to Jenna Lopez for continuation of care. Pt pending transportation 1612 phlebotomy at bedside 1618 pt transported to floor via gurney. No acute distress noted. Belongings with pt * Fariha Hermosillo M.D., M.D. - 10/14/2024 11:35 AM PDT EMERGENCY DEPARTMENT NOTE Chief Complaint Patient presents with CHEST PAIN Patient presented to Urgent Care for abdominal and chest pain and SOB. Initially with HR in 70s, EKG found to be in a fib with RVR with a rate of 178, BP stable (Pt with h/o a fib on coumadin). Labs and imaging ordered by Urgent Care. No meds given. BT 1043 ABDOMINAL PAIN HPI Patient ID: Saira Belle is a 79 year old female, with history of diastolic heart failure, do AFib on diltiazem and warfarin, CAD, hypertension, hyperlipidemia, prediabetes, and diverticulosis, whowas sent from Urgent Care for tachycardia. Patient presented to urgent care for left-sided abdominal pain x3d. Shortly after patient presented with stable vitals at Urgent Care, she became tachycardic with EKG showing AFib with RVR. Patient was subsequently sent to the ED. Patient reports abdominal pain associated with abdominal bloating, decreased appetite, and ?? not feeling well. ?? Does report that when abdominal pain started she had palpitations, dull chest pain,and shortness of breath. Reports palpitations, chest pain, and shortness of breath resolved that same day, but abdominal pain persisted. Reports compliance with home medications. (+) dehydration (-) fevers, URI symptoms, nausea, vomiting, diarrhea, dysuria PMH: Past Medical History: Diagnosis Date HX OF [...] FIBRILLATION, UNSPECIFIED 10/21/2015 HTN (HYPERTENSION) HYPERLIPIDEMIA SYNCOPE PSH: Past Surgical History: Procedure Laterality Date COLONOSCOPY, DIAGNOSTIC FLEXIBLE 08/22/2017 HIP REPLACEMENT TOTAL Left 04/28/2021 Procedure: HIP REPLACEMENT TOTAL; Laterality: Left; Surgeon: David Palacios M.D. MMagdalene INSERTION PACEMAKER, DUAL CHAMBER, PERMANENT INTRAVENOUS, INITIAL N/A 05/23/2023 Procedure: CARDIAC PACEMAKER INSERTION, DUAL CHAMBER, PERMANENT INTRAVENOUS, INITIAL; Laterality: N/A; Surgeon: Fanny Jade M.D., M.D. APPENDECTOMY CATARACT EXTRACTION BY PHACOEMULSIFICATION WO IOL Left 09/30/2014 Procedure: CATARACT EXTRACTION BY PHACOEMULSIFICATION WO IOL; Laterality: Left; Surgeon: Juancarlos Arboleda) CATARACT SURGERY W IOL-PHACO Right 07/17/2014 Procedure: CATARACT SURGERY W IOL-PHACO; Laterality: Right; Surgeon: Juancarlos Arboleda) CATARACT SURGERY W IOL-PHACO Left 08/12/2014 Procedure: CATARACT SURGERY W IOL-PHACO; Laterality: Left; Surgeon: Juancarlos Arboleda) COLONOSCOPY W REMOVAL OF LESION USING SNARE 02/29/2012 COLONOSCOPY, DIAGNOSTIC FLEXIBLE 02/29/2012 PAST SURGICAL HISTORY, OTHER right shoulder surgery - due to impingement PAST SURGICAL HISTORY, OTHER bladder lift TOTAL ABDOMINAL HYSTERECTOMY, W/WO REMOVAL OF TUBE(S), W/WO REMOVAL OF OVARY(S) TRANSORAL EGD, FLEXIBLE, DIAGNOSTIC 07/11/2012 Soc History: Social History Tobacco Use Smoking status: Never Passive exposure: Never Smokeless tobacco: Never Tobacco comments: once per week-wine Vaping Use Vaping status: Never Used Substance Use Topics Alcohol use: Not Currently Alcohol/week: 0.6 oz Types: 1 Standard drinks or equivalent per week Comment: occ Drug use: No Occupation: Data Unavailable Fam History: Family History Problem Relation Age of Onset Hypertension Mother Heart Disease Mother Father Stroke Mother Father Diabetes Grandmother Colon Cancer None Breast Cancer Sister double masectomy Allergies: Allergies Allergen Reactions Demerol [Meperidine Hcl] Meperidine Skin Rash and/or Hives Non-Steroidal Anti-Inflammatory Agents [id number] Heart Failure. Exception to this NSAID intolerance is aspirin 81- 325mg daily and topical or ophthalmic nsaids' [id number] Heart Failure. Exception to this NSAID intolerance is aspirin 81- 325mg daily and topical or ophthalmic nsaids' Codeine And Opiate Derivatives Skin Rash and/or Hives Hydrochlorothiazide Hyponatremia in setting of HCTZ Hyponatremia in setting of HCTZ Oxycodone-Acetaminophen Skin Rash and/or Hives Oxycodone-Aspirin Skin Rash and/or Hives Penicillins Class Skin Rash and/or Hives Cefuroxime Axetil Skin Rash and/or Hives Noted with antibiotics given in [place]. Noted with antibiotics given in [place]. Sulfa (Sulfonamide Antibiotics) Skin Rash and/or Hives Current Facility-Administered Medications for the 10/14/24 encounter (Hospital Encounter) Medication Dose Triamcinolone Acetonide Inj 40 mg (KENALOG) 40 mg Triamcinolone Acetonide Inj 40 mg (KENALOG) 40 mg Lidocaine (PF) 10 mg/mL (1 %) Inj 2 mg (XYLOCAINE) 2 mg Lidocaine (PF) 10 mg/mL (1 %) Inj 2 mg (XYLOCAINE) 2 mg Outpatient Medications Marked as Taking for the 10/14/24 encounter (Hospital Encounter) Medication Atorvastatin (LIPITOR) 10 mg Oral Tab Lisinopril (PRINIVIL/ZESTRIL) 5 mg Oral Tab Warfarin 2 mg Oral Tab dilTIAZem (CARDIZEM CD) 120 mg Oral 24hr SR Cap Warfarin 2 mg Oral Tab cloNIDine (CATAPRES-TTS 1) 0.1 mg/24 hr TD Weekly Patch dilTIAZem (CARDIZEM) 30 mg Oral Tab Nitrofurantoin Monohydrate (MACROBID) 100 mg Oral Cap Latanoprost (XALATAN) 0.005 % Opht Drop Dorzolamide-Timolol (COSOPT) 22.3-6.8 mg/mL Opht Drop Medications Reviewed, if on file or verbally with patient or surrogate. BP 106/71 Pulse 100 Temp 36.4 ??C (97.6 ??F) Resp 24 Ht 1.626 m (5' 4) Wt 64 kg (141 lb) SpO2 92% BMI 24.20 kg/m?? Review of Systems Physical Exam Constitutional: General: She is not in acute distress. Appearance: She is well-developed. She is not ill-appearing, toxic-appearing or diaphoretic. HENT: Head: Normocephalic and atraumatic. Cardiovascular: Rate and Rhythm: Tachycardia present. Rhythm irregular. Heart sounds: No murmur heard. Pulmonary: Effort: Pulmonary effort is normal. No respiratory distress. Breath sounds: Normal breath sounds. Abdominal: Palpations: Abdomen is soft. Tenderness: There is abdominal tenderness (diffuse). There is guarding (voluntary). There is no rebound. Musculoskeletal: Right lower leg: No edema. Left lower leg: No edema. Skin: General: Skin is warm and dry. Neurological: Mental Status: She is alert and oriented to person, place, and time. Psychiatric: Mood and Affect: Mood normal. Behavior: Behavior normal. Procedures ED COURSE/MEDICAL DECISION MAKING ED Course: Orders Placed This Encounter XR CHEST [address] ABD AND PELVIS NO CONTRAST CBC W AUTOMATED DIFFERENTIAL ELECTROLYTE PANEL (NA, K, CL, CO2, ANION GAP) BUN CREATININE GLUCOSE LIPASE ALT AST BILIRUBIN, TOTAL BILIRUBIN, DIRECT ALKALINE PHOSPHATASE TROPONIN I, HIGH SENSITIVITY LACTIC ACID W REFLEX TO REPEAT B-TYPE NATRIURETIC PEPTIDE (BNP) LACTIC ACID, BLOOD WBC AUTO DIFF CALCIUM MAGNESIUM PHOSPHATE TROPONIN I, HIGH SENSITIVITY INPATIENT INTERNAL MEDICINE CONSULT EKG 12 OR MORE LEADS W INT & RPT dilTIAZem Inj 10 mg (CARDIZEM) dilTIAZem Inj 16 mg (CARDIZEM) Magnesium Sulfate 2 gram/50 mL (4 %) IV Premix Sodium Chloride 0.9 % IV Bolus Amiodarone 150 mg (CORDARONE IV) FOLLOWED BY Linked Order Group Amiodarone in Dextrose 360 mg/200 mL (1.8 mg/mL) IV Premix (NEXTERONE) Amiodarone in Dextrose 360 mg/200 mL (1.8 mg/mL) IV Premix (NEXTERONE) Medications Amiodarone in Dextrose 360 mg/200 mL (1.8 mg/mL) IV Premix (NEXTERONE) (1 mg/min intraVENOUS New Bag 10/14/24 1455) Followed by Amiodarone in Dextrose 360 mg/200 mL (1.8 mg/mL) IV Premix (NEXTERONE) (has no administration in time range) dilTIAZem Inj 10 mg (CARDIZEM) (10 mg intraVENOUS Given 10/14/24 1124) dilTIAZem Inj 16 mg (CARDIZEM) (16 mg intraVENOUS Given 10/14/24 1152) Magnesium Sulfate 2 gram/50 mL (4 %) IV Premix (0 g intraVENOUS Completed 10/14/24 1327) Sodium Chloride 0.9 % IV Bolus (0 mL intraVENOUS Completed 10/14/24 1324) Amiodarone 150 mg (CORDARONE IV) (150 mg intraVENOUS Given 10/14/24 1429) Sodium Chloride 0.9 % Inj Soln (500 mL intraVENOUS New Bag 10/14/24 1440) Vital Signs: Patient Vitals for the past 24 hrs: BP Temp Pulse Resp SpO2 Height Weight 10/14/24 1550 -- -- -- 24 -- -- -- 10/14/24 1530 106/71 -- 100 23 92 % -- -- 10/14/24 1500 97/75 -- (!) 118 23 92 % 1.626 m (5' 4) 64 kg (141 lb) 10/14/24 1450 96/71 -- (!) 123 19 93 % -- -- 10/14/24 1440 114/73 -- (!) 135 24 94 % -- -- 10/14/24 1430 (!) 119/103 -- (!) 122 22 93 % -- -- 10/14/24 1420 100/57 -- (!) 123 25 -- -- -- 10/14/24 1410 122/73 -- (!) 138 22 95 % -- -- 10/14/24 1400 136/83 -- (!) 131 19 94 % -- -- 10/14/24 1350 108/68 -- (!) 117 24 93 % -- -- 10/14/24 1346 108/68 -- (!) 131 23 94 % -- -- 10/14/24 1340 96/57 -- (!) 154 (!) 31 95 % -- -- 10/14/24 1334 117/75 -- (!) 128 19 93 % -- -- 10/14/24 1330 (!) 88/69 -- (!) 134 27 93 % -- -- 10/14/24 1320 101/78 -- (!) 131 23 97 % -- -- 10/14/24 1307 111/75 -- (!) 113 24 93 % -- -- 10/14/24 1300 94/72 -- (!) 133 27 95 % -- -- 10/14/24 1230 126/64 -- (!) 134 28 94 % -- -- 10/14/24 1225 125/81 -- (!) 138 27 96 % -- -- 10/14/24 1215 108/70 -- (!) 140 27 94 % -- -- 10/14/24 1200 116/62 -- (!) 111 25 95 % -- -- 10/14/24 1143 126/83 -- (!) 131 20 96 % -- -- 10/14/24 1130 119/70 -- (!) 124 26 96 % -- -- 10/14/24 1121 102/61 -- (!) 172 (!) 29 99 % -- -- 10/14/24 1117 102/73 -- (!) 153 (!) 31 96 % -- -- 10/14/24 1112 104/58 -- (!) 162 23 96 % -- -- 10/14/24 1107 -- -- (!) 175 22 97 % -- -- 10/14/24 1106 114/73 -- (!) 179 24 -- -- -- 10/14/24 1051 103/55 36.4 ??C (97.6 ??F) 64 20 98 % -- 64.4 kg (141 lb 15.6 oz) Results: POC Glucose: No data found. Labs: Results for orders placed or performed during the hospital encounter of 10/14/24 (from the past 12 hour(s)) CBC W AUTOMATED DIFFERENTIAL Collection Time: 10/14/24 11:06 AM Specimen: BLOOD Result Value Ref Range WBC'S AUTO 14.2 (H) 4.0 - 11.0 x1000/mcL RBC, AUTO 4.21 3.70 - 5.20 Mill/mcL HGB 11.8 11.5 - 16.0 g/dL HCT, AUTO 36.2 35.0 - 47.0 % MCV 86.0 81.0 - 99.0 fL MCH 28.0 25.0 - 35.0 pg/cell MCHC 32.6 30.0 - 35.0 g/dL RDW, BLOOD 13.9 11.5 - 16.0 % PLATELETS, AUTOMATED COUNT 327 130 - 400 x1000/mcL ELECTROLYTE PANEL (NA, K, CL, CO2, ANION GAP) Collection Time: 10/14/24 11:06 AM Specimen: BLOOD Result Value Ref Range SODIUM 131 (L) 135 - 145 mEq/L POTASSIUM 4.0 3.5 - 5.0 mEq/L CHLORIDE 97 (L) 101 - 111 mEq/L CO2 20 (L) 21 - 31 mEq/L ANION GAP (NA - (CL + CO2)) 14 (H) 3 - 11 mEq/L BUN Collection Time: 10/14/24 11:06 AM Specimen: BLOOD Result Value Ref Range BUN 16 <=18 mg/dL CREATININE Collection Time: 10/14/24 11:06 AM Specimen: BLOOD Result Value Ref Range CREATININE 1.25 (H) <=1.10 mg/dL EGFR, CREATININE-BASED FORMULA (CKD-EPI 2020) 44 (L) >=60 mL/min/BSA GLUCOSE Collection Time: 10/14/24 11:06 AM Specimen: BLOOD Result Value Ref Range GLUCOSE, RANDOM 131 70 - 140 mg/dL LIPASE Collection Time: 10/14/24 11:06 AM Specimen: BLOOD Result Value Ref Range LIPASE 30 <=58 U/L ALT Collection Time: 10/14/24 11:06 AM Specimen: BLOOD Result Value Ref Range ALT 15 <=54 U/L AST Collection Time: 10/14/24 11:06 AM Specimen: BLOOD Result Value Ref Range AST 20 <=30 U/L BILIRUBIN, TOTAL Collection Time: 10/14/24 11:06 AM Specimen: BLOOD Result Value Ref Range BILIRUBIN, TOTAL 1.3 (H) <=1.0 mg/dL BILIRUBIN, DIRECT Collection Time: 10/14/24 11:06 AM Specimen: BLOOD Result Value Ref Range BILIRUBIN, DIRECT 0.4 (H) <=0.2 mg/dL ALKALINE PHOSPHATASE Collection Time: 10/14/24 11:06 AM Specimen: BLOOD Result Value Ref Range ALKALINE PHOSPHATASE 62 <=125 U/L TROPONIN I, HIGH SENSITIVITY Collection Time: 10/14/24 11:06 AM Specimen: BLOOD Result Value Ref Range TROPONIN I, HIGH SENSITIVITY 21 (H) <=12 pg/mL LACTIC ACID W REFLEX TO REPEAT Collection Time: 10/14/24 11:06 AM Specimen: BLOOD Result Value Ref Range LACTATE, SER/PLAS 2.3 (H) 0.5 - 1.9 mmol/L B-TYPE NATRIURETIC PEPTIDE (BNP) Collection Time: 10/14/24 11:06 AM Specimen: BLOOD Result Value Ref Range B TYPE NATRIURETIC PEPTIDE 1,392 (H) <=99 pg/mL WBC AUTO DIFF Collection Time: 10/14/24 11:06 AM Specimen: BLOOD Result Value Ref Range NEUTROPHILS %, AUTOMATED COUNT 83.7 LYMPHOCYTES %, AUTOMATED COUNT 8.5 MONOS %, AUTO 6.3 EOSINOPHILS %, AUTOMATED COUNT 0.2 BASOPHILS %, AUTOMATED COUNT 0.6 IMMATURE GRANULOCYTES %, AUTOMATED COUNT 1 RBC NUCLEATED AUTO COUNT, BLD 0 <=0 % NEUTROPHILS, ABSOLUTE, AUTOMATED COUNT 11.88 (H) 1.80 - 7.70 x1000/mcL LYMPHOCYTES, AUTOMATED COUNT 1.21 1.00 - 3.60 x1000/mcL MONOCYTES, AUTOMATED COUNT 0.89 0.10 - 1.00 x1000/mcL EOSINOPHILS, AUTOMATED COUNT 0.03 0.00 - 0.70 x1000/mcL BASOPHILS, AUTOMATED COUNT 0.08 0.00 - 0.20 x1000/mcL IMMATURE GRANULOCYTES, AUTOMATED COUNT 0.10 (H) 0.01 - 0.09 x1000/mcL INR Collection Time: 10/14/24 11:06 AM Specimen: BLOOD Result Value Ref Range PT INR 1.9 (H) 0.8 - 1.2 APTT Collection Time: 10/14/24 11:06 AM Specimen: BLOOD Result Value Ref Range APTT 40 (H) 25 - 37 Sec LACTIC ACID, BLOOD Collection Time: 10/14/24 2:04 PM Specimen: BLOOD Result Value Ref Range LACTATE, SER/PLAS 1.0 0.5 - 1.9 mmol/L CALCIUM Collection Time: 10/14/24 2:04 PM Specimen: BLOOD Result Value Ref Range CALCIUM 8.0 (L) 8.5 - 10.7 mg/dL MAGNESIUM Collection Time: 10/14/24 2:04 PM Specimen: BLOOD Result Value Ref Range MAGNESIUM 2.5 1.7 - 2.8 mg/dL PHOSPHATE Collection Time: 10/14/24 2:04 PM Specimen: BLOOD Result Value Ref Range PHOSPHORUS 2.9 2.7 - 4.5 mg/dL Imaging: XR CHEST 1 VIEW Final Result FINDINGS/IMPRESSION: No interval change. There is unchanged left chest wall pacemaker. The lungs remain clear. There is unchanged slightly elevated right hemidiaphragm. No pleural effusions are seen. The cardiomediastinal silhouette is normal. There is unchanged arteriosclerosis of the aortic knob. The report is intended as communication between the interpreting radiologist and the ordering physician. If you've questions how this report integrates with your overall care, please follow up with the ordering physician. This report electronically signed by Edilson Beth on 10/14/2024 11:55 AM EKG (My Interpretation): See EMERGENCY DEPARTMENT course Medical Decision Making: Differential Diagnosis: atrial fibrillation RAPID VENTRICULAR RESPONSE 2/2 dehydration, patient denies chest pain compliance, intraabdominal infection, bowel ischemia, UTI, less likely malignancy. Donot suspect PULMONARY EMBOLISM at this time. The patient's previous medical records, if available, have been reviewed. Nursing/triage notes and vital signs reviewed. Any pertinent lab results, EKG(s) and radiologic studies from this visit or prior visits have been reviewed if available. ED Course as of 10/14/24 1614 MonOct 14, 2024 1128 1st EKG: VR 178 Machine read as sinus rhythm with premature supraventricular complexes; personal read AFib versus SVT with aberrancy Slight ST depression in inferolateral leads. Borderline [address]-elevation in aVR and V1 QRS 74 milliseconds, QTC 447 milliseconds [RT] 1130 2nd EKG: Ventricular rate [address] depression inferolateral leads. 1-[address]-elevation in aVR and V1 QRS 76 milliseconds, QTC 385 milliseconds [RT] 1143 Patient re-evaluated after 10 mg of diltiazem IV. Per RN patient dropped down as low as heart rate 120s, now fluctuating up to 140s 150s. We will give total of 0.25 mg/kg diltiazem dose now. [RT] 1215 LACTATE, SER/PLAS(!): 2.3 [RT] 1215 TROPONIN I, HIGH SENSITIVITY(!): 21 Improved compared to prior [RT] 1215 B TYPE NATRIURETIC PEPTIDE(!): 1,392 Significantly elevated compared to priors [RT] 1342 Informed by RN patient had 5 beat run of VT, caught on monitor. Magnesium, Calcium, and phosphate levels ordered. Amiodarone bolus and drip ordered. HR still 130s per RN at this time, will max out diltiazem drip. [RT] ED Course User Index [RT] Fariha Hermosillo M.D., Richie SIRS ERT Component Found Value More Info Heart Rate 179 10/14/2024 11:06 AM Heart Rate 175 10/14/2024 11:07 AM Heart Rate 162 10/14/2024 11:12 AM Heart Rate 153 10/14/2024 11:17 AM Heart Rate 172 10/14/2024 11:21 AM Heart Rate 124 10/14/2024 11:30 AM Heart Rate 131 10/14/2024 11:43 AM Heart Rate 111 10/14/2024 12:00 PM Heart Rate 140 10/14/2024 12:15 PM Heart Rate 138 10/14/2024 12:25 PM Heart Rate 134 10/14/2024 12:30 PM Heart Rate 133 10/14/2024 1:00 PM Heart Rate 113 10/14/2024 1:07 PM Heart Rate 131 10/14/2024 1:20 PM Heart Rate 134 10/14/2024 1:30 PM Heart Rate 128 10/14/2024 1:34 PM Heart Rate 154 10/14/2024 1:40 PM Heart Rate 131 10/14/2024 1:46 PM Heart Rate 117 10/14/2024 1:50 PM Heart Rate 131 10/14/2024 2:00 PM Respiratory Rate 24 10/14/2024 11:06 AM Respiratory Rate 22 10/14/2024 11:07 AM Respiratory Rate 23 10/14/2024 11:12 AM Respiratory Rate 31 10/14/2024 11:17 AM Respiratory Rate 29 10/14/2024 11:21 AM Respiratory Rate 26 10/14/2024 11:30 AM Respiratory Rate 25 10/14/2024 12:00 PM Respiratory Rate 27 10/14/2024 12:15 PM Respiratory Rate 27 10/14/2024 12:25 PM Respiratory Rate 28 10/14/2024 12:30 PM Respiratory Rate 27 10/14/2024 1:00 PM Respiratory Rate 24 10/14/2024 1:07 PM Respiratory Rate 23 10/14/2024 1:20 PM Respiratory Rate 27 10/14/2024 1:30 PM Respiratory Rate 31 10/14/2024 1:40 PM Respiratory Rate 23 10/14/2024 1:46 PM Respiratory Rate 24 10/14/2024 1:50 PM WBC 14.2 10/14/2024 11:06 AM ERT has been met at MonOct 14, 2024 11:06 AM Interpretation: SIRS ERT has been met (MonOct 14, 2024 11:06 AM) Saira Belle is a 79 year old female, with history of diastolic heart failure, do AFib on diltiazem and warfarin, CAD, hypertension, hyperlipidemia, prediabetes, and diverticulosis, who was sent from urgent care for tachycardia. Patient presented to urgent care for left-sided abdominal pain x3d. Shortly after patient presented with stable vitals at Urgent Care, she became tachycardic with EKG showing AFib with RVR. Abdominal pain was initially associated with palpitations, chest pain, shortness of breath; however these other symptoms resolved the same day they occurred while abdominal pain has persisted. Patient arrived ATRIAL FIBRILLATION WITH RAPID VENTRICULAR RESPONSE with stable BP. EKG concerning for atrial fibrillation with STD in inferolateral leads; suspect demand ischemia from RAPID VENTRICULAR RESPONSE. Bolus of fluids started. Heart rate did not respond fully to 10 mg of diltiazem so she was then given 0.25 mg/kg (16mg) of diltiazem. Heart rate down to the 120s 130s with i ntermittent elevation to the 140s-150s. Magnesium 2g IV and Diltiazem drip ordered. Given no chest pain or shortness of breath currently, do not suspect PE. Labs notable for elevated BNP at 1300, troponin of 21 that I suspect is due to troponin leak, and mildly elevated lactate, While awaiting for heart rate to be kept better controlled to take patient to CT scanner patient had nonsustained run of V-tach. Magnesium, calcium, and phosphorus levels ordered, as well as amiodarone bolus and drip. Internal Medicine consulted for evaluation for admission. Saira Belle presented in critical condition requiring constant attention. While immediately available to the patient, I have reviewed the nursing notes, [facility] chart, current labs, emergency department flowsheet data, and new imaging studies. I have also performed serial assessments on this critical patient with Rapid A-fib requiring aggressive resuscitation who has the potential for high morbidity/mortality. I spent a total of 40 minutes throughout the day delivering critical care tothis patient, exclusive of procedures. HEART Score for Major Cardiac Events Component Found Value More Info History of Chest Pain (HEART Score) Slightly Suspicious (0) 10/14/2024 4:25 PM ECG Changes (HEART Score) Significant ST-depression (+2) 10/14/2024 4:25 PM Age (HEART Score) >= 65 (+2) n/a Risk Factors (HEART Score) >= 3risk factors OR history of atherosclerotic disease (+2) n/a Troponin (HEART Score) 1-3x normal limit (+1) n/a HEART Score: 7 Interpretation: consider outpatient stress testing or observation admission for further evaluation. IMPRESSION 1. ATRIAL FIBRILLATION W RAPID VENTRICULAR RESPONSE 2. VENTRICULAR TACHYCARDIA, PAROXYSMAL 3. GENERALIZED ABDOMINAL PAIN PLAN Internal Medicine consulted for evaluation for admission Chart Electronically Signed By: Fariha Hermosillo MD 10/14/2024 4:14 PM Department of Emergency Medicine [facility] * Arlen Chase), R.N. - 10/14/2024 11:34 AM PDT Assuming temporary care fro primary RN break. Pt on monitor, MD Hermosillo at bedside requesting a seconddose of diltiasem. * José Miguel Quinteros - 10/14/2024 11:09 AM PDT EKG completed for patient Saira Belle, : 1945, , Date: 10/14/2024 , Time@ 1030 Without Critical findings - triaged per protocol Electronically signed by: JOSÉ MIGUEL QUINTEROS 10/14/2024 11:09 AM * Kaelyn Lerner R.N. RRegine - 10/14/2024 11:03 AM PDT Received Patient for care from TRIAGE bib [facility] / SPOUSE / FAMILY MEMBER / FRIEND. Patient verified via 2 identifiers ( name / date of ) Patient here d/t LUQ pain x 4 days report nausea, denies v/d. Reports cp on Monday but denies pain now. .Initial contact / assessment : Patient a/o x 4, GCS 15, skin pink, warm and dry , chest : no c/o chest pain, but currently afib rvr 170s EKG preformed in triage, er md notified, Clear breath sounds,equal chest expansion , good air entry bilaterally , no obvious signs of respiratory distress , abdomen: round, soft, non distended, pain / tenderness on palpation to LUQ, LBM normal , no urinary symptoms , awaiting ER DR evaluation and order/s and will continue to monitor patient. Patient oriented to the environment / patient's room , call arzate provided to the patient. 1300: report given to eliseo LOPEZ, víctor peterson.pt awake alert, afib rvr on the monitor bp wdl ,spo2 wdl, family at bedside documented in this encounter Miscellaneous Notes * Initial Assessments - Chante Nobles R.D., Mitzi - 10/21/2024 11:12 AM PDT NUTRITION INITIAL ASSESSMENT Malnutrition Clinical Characteristics Screening As of 10/21/2024, Saira Belle does NOT qualify for malnutrition at this time. NUTRITION RECOMMENDATIONS: 1. Continue current diet plan as tolerated 2. Monitor po intake Reason for visit: Case finding: LOS. Subjective: Saira Belle is a 79 year old female with a Past Medical History of diastolic heart failure, AFib on diltiazem and warfarin, CAD, hypertension, renal artery stenosis, hyperlipidemia, prediabetes, and diverticulosis, who was sent from urgent care for tachycardia. Started w/ abdominal bloating x3 days, decreased appetite, and ?? not feeling well. ?? She has been eating and drinking less than usual over the past few days, with minimal intake over the last three days. She is generally active, usually walking two miles and riding a bike, no associated chest pain/pressure/palpitations, but has not been active in the past few days due to feeling unwell. Admitted for ATRIAL FIBRILLATION W RAPID VENTRICULAR RESPONSE. Pt stated appetite has decreased since admission due to food preference. Was eating normally at home prior to admission. Following a low Na diet and would eat a smaller breakfast and a normal lunch/dinner. Has had some recent n/v but more medication based not because of the food. Usual wt ~140-144#. Pt declined supplement at this time. No questions regarding diet Food allergies: None documented Skin: intact GI: Abdomen: Soft;Non-Tender Bowel Sounds: NORMOACTIVE GI Symptoms: Continent Gastric/Emesis Characteristics: None Stool Characteristics: Brown;Small;Soft Emesis - Emesis (-ml): 0 mL Bowel movement: Patient Vitals for the past 240 hrs: Stool Characteristics 10/21/24 1400 Brown;Pasty;Small 10/21/24 0749 Brown;Small;Soft 10/21/24 0548 Brown;Loose 10/20/24 1035 Brown;Loose 10/20/24 0800 Mucoid;Green 10/20/24 0600 Mucoid;Brown;Small 10/20/24 0400 Mucoid;Brown;Small 10/20/24 0242 Mucoid;Brown;Small 10/20/24 0000 Mucoid;Brown;Small 10/19/24 2059 Mucoid;Brown;Small 10/19/24 1600 Mucoid;Green 10/19/24 1200 Mucoid;Green 10/19/24 1135 Mucoid;Brown 10/19/24 0800 Mucoid;Green 10/19/24 0500 Mucoid;Brown;Soft;Medium 10/19/24 0129 Small;Brown;Soft 10/18/24 2200 Brown;Soft;Medium 10/18/24 1838 Brown;Soft;Medium 10/18/24 1651 Brown;Soft;Small 10/18/24 0800 Brown;Soft;Small 10/18/24 0346 Brown;Soft;Small 10/17/24 0800 Brown;Soft;Small 10/17/24 0540 Brown;Soft;Small 10/17/24 0351 Brown;Soft;Loose 10/17/24 0148 Brown;Soft;Loose 10/17/24 0030 Reported per Patient;Brown;Small 10/16/24 1840 Black;Soft;Medium 10/16/24 1000 Black;Soft;Medium 10/16/24 0800 Black;Soft;Medium 10/15/24 1000 Brown;Loose;Medium 10/15/24 0906 Brown;Loose;Medium 10/15/24 0651 Brown;Loose;Small 10/15/24 0408 Brown;Loose;Small 10/15/24 0218 Brown;Soft;Medium 10/15/24 0200 Brown;Large;Loose 10/15/24 0000 Brown;Soft;Small 10/14/24 2136 Brown;Soft;Mucoid 10/14/24 2000 Brown;Soft;Small 10/14/24 1900 Brown;Soft;Small 10/14/24 1112 Reported per Patient;Brown;Loose;Liquid Nutrition Focused Physical Exam: ?? Physical findings from assessment performed on 10/21/2024 via physical exam ??Loss of subcutaneous fat: None noted ??Loss of muscle mass: None noted ??Fluid accumulation: mild to severe Right Arm Edema 1 filed at 10/21/2024 0749 Left Arm Edema 3 filed at 10/21/2024 0749 Right Hand Edema 1 filed at 10/21/2024 0749 Left Hand Edema 3 filed at 10/21/2024 0749 Anthropometrics: Wt Readings from Last 15 Encounters: 10/19/24 64.1 kg (141 lb 5 oz) 10/14/24 64.4 kg (142 lb) 08/27/24 64.7 kg (142 lb 10.2 oz) 03/11/24 67.1 kg (147 lb 14.9 oz) 11/24/23 64.8 kg (142 lb 13.7 oz) 10/10/23 64.9 kg (143 lb) 08/22/23 66.2 kg (145 lb 15.1 oz) 08/22/23 66.7 kg (147 lb) 08/15/23 67.1 kg (147 lb 14.9 oz) 06/14/23 68.9 kg (152 lb) 06/13/23 65.1 kg (143 lb 8.3 oz) 06/02/23 65.8 kg (145 lb 1 oz) 05/23/23 65.8 kg (145 lb) 04/21/23 68.9 kg (152 lb) 04/17/23 68.9 kg (152 lb) Weight Status: within normal limits. Estimated body mass index is 24.26 kg/m?? as calculated from the following: Height as of this encounter: 1.626 m (5' 4). Weight as of this encounter: 64.1 kg (141 lb 5 oz). Weight history: stable [place]/Desired Body Weight (kg): 58 kg (127 lb 13.9 oz) (sandhu 22) % of [place]/Desired Body Weight: 110.52 % Nutrition-related medications: PACERONE, LIPITOR, COREG, CARDIZEM CD, CULTURELLE, PROTONIX, ROBITUSSIN DM Oral Syrup 10 mL Relevant labs values: Recent Labs 10/21/24 0437 10/20/24 2327 10/20/24 1710 10/20/24 1207 10/20/24 0459 10/19/24 1356 10/19/24 0453 NA 127* 125* 123* 124* < > 126* < > 127* K 3.6 3.5 3.9 3.9 < > 3.6 < > 3.7 BUN 8 -- -- -- 6 -- 6 CR 0.73 -- -- -- 0.54 -- 0.69 FBS 117* -- -- -- 110* -- 118* PHOS 2.6* -- -- -- -- -- -- < > = values in this interval not displayed. EGFR CREATININE-BASED 83 10/21/2024 GFR 54 (L) 10/07/2021 ALB 2.4 (L) 10/15/2024 HGBA1C 5.8 11/09/2023 CHOL 176 11/09/2023 TRIG 108 11/09/2023 HDL 69 11/09/2023 LDL CALC 88 11/09/2023 CHOL/HDL 2.6 11/09/2023 Estimated Daily Nutrition Needs Based on: actual body weight 64.1kg Calories (Kcal/Day): 1690-2872 Calorie Based On: ACTUAL BODY WEIGHT;25-30 KCAL/KG Protein (Gm/Day): 64-77 Protein Based On: ACTUAL BODY WEIGHT;1.0 - 1.2 GM/KG Fluids (ML/Day): 4322-0919 Fluids Based On: 1 ML/KCAL Current Diet Orders (From admission to next 48h) Start Ordered 10/14/24 1615 Cardiac Diet (2.3 gm Na, Low Chol, No Caffeine/No Decaf) NOW Comments: WARNING: THIS IS THE COMMENTS SECTION. DIET ORDERS ARE NOT ACCEPTED IN THIS AREA. 10/14/24 1605 is adequate to meet estimated nutritional needs P.O. Intake: Patient Vitals for the past 288 hrs: Diet % Taken 10/21/24 1300 75 % 10/21/24 0900 75 % 10/20/24 1840 40 % 10/20/24 1330 50 % 10/19/24 1932 50 % 10/19/24 1200 50 % 10/19/24 0800 75 % 10/18/24 1253 25 % 10/18/24 0800 80 % 10/17/24 1800 65 % 10/17/24 1400 30 % 10/16/24 1811 30 % 10/16/24 1341 50 % 10/16/24 0800 50 % 10/15/24 1800 25 % 10/15/24 1200 50 % 10/15/24 0800 25 % Average 58% over last 9 meals P.O. Intake is inadequate to meet estimated nutritional needs NUTRITION-RELATED DIAGNOSIS Intake- Related Diagnoses: Oral/Nutrition Support Intake: Inadequate oral intake (NI-2.1) (10/21/24 1500) Related to: decreased appetite or inadequate energy intake As Evidenced by: poor average po intake of < 75% of meal Clinical- Related Diagnoses: Biochemical: Altered nutrition-related laboratory values (specify) (NC-2.2) (10/21/24 1500) Related to: organ dysfunction As Evidenced by: NA 125 (L) 10/21/2024 NA 127 (L) 10/21/2024 PHOS 2.6 (L) 10/21/2024 EGFR CREATININE-BASED 83 10/21/2024 GFR 54 (L) 10/07/2021 Education: encouraged po intake Coordination of care: Continue current plan of care Plan of care ongoing, pending clinical course Goal(s): Oral intake > 80% of meal Weight stable, no further loss Preserve skin integrity Discharge planning: Cardiac diet ? Nutritional Risk Level: Moderate Follow-Up Date: 10/25/24 (RA) Electronically signed by Chante Nobles, MPH, RD [facility] Ext. [phone] 10/21/2024 11:12 AM documented in this encounter Plan of Treatment Upcoming Encounters Date Type Department Care Team (Late st Contact Info) Description 03/05/2025 10:00 AM PDT Office Visit CARDIOLOGY [address] [place] [address] Melanie Osuna (N.P.), N.P. [address] [place] [address] documented as of this encounter Procedures Procedure Name Priority Date/Time Associated Diagnosis Comments ELECTROLYTE PANEL (NA, K, CL, CO2, ANION GAP) Timing Critical 10/21/2024 4:37 AM PDT ELECTROLYTE PANEL (NA, K, CL, CO2, ANION GAP) Routine 10/21/2024 4:37 AM PDT BUN Routine 10/21/2024 4:37 AM PDT PHOSPHATE Routine 10/21/2024 4:37 AM PDT CREATININE Routine 10/21/2024 4:37 AM PDT CBC W AUTOMATED DIFFERENTIAL Routine 10/21/2024 4:37 AM PDT INR Routine 10/21/2024 4:37 AM PDT WBC AUTO DIFF Routine 10/21/2024 4:37 AM PDT MAGNESIUM Routine 10/21/2024 4:37 AM PDT GLUCOSE, FASTING Routine 10/21/2024 4:37 AM PDT ELECTROLYTE PANEL (NA, K, CL, CO2, ANION GAP) Timing Critical 10/20/2024 11:27 PM PDT SODIUM, URINE Routine 10/20/2024 9:59 PM PDT OSMOLALITY, URINE STAT 10/20/2024 9:59 PM PDT ELECTROLYTE PANEL (NA, K, CL, CO2, ANION GAP) Timing Critical 10/20/2024 5:10 PM PDT ELECTROLYTE PANEL (NA, K, CL, CO2, ANION GAP) Timing Critical 10/20/2024 12:07 PM PDT OSMOLALITY, SERUM Routine 10/20/2024 12:07 PM PDT ELECTROLYTE PANEL (NA, K, CL, CO2, ANION GAP) Routine 10/20/2024 4:59 AM PDT BUN Routine 10/20/2024 4:59 AM PDT CREATININE Routine 10/20/2024 4:59 AM PDT INR Routine 10/20/2024 4:59 AM PDT MAGNESIUM Routine 10/20/2024 4:59 AM PDT GLUCOSE, FASTING Routine 10/20/2024 4:59 AM PDT CBC W AUTOMATED DIFFERENTIAL Routine 10/20/2024 4:56 AM PDT WBC AUTO DIFF Routine 10/20/2024 4:56 AM PDT XR CHEST 1 VIEW STAT 10/19/2024 4:34 PM PDT ELECTROLYTE PANEL (NA, K, CL, CO2, ANION GAP) Routine 10/19/2024 1:56 PM PDT ELECTROLYTE PANEL (NA, K, CL, CO2, ANION GAP) Routine 10/19/2024 4:53 AM PDT BUN Routine 10/19/2024 4:53 AM PDT CREATININE Routine 10/19/2024 4:53 AM PDT CBC W AUTOMATED DIFFERENTIAL Routine 10/19/2024 4:53 AM PDT INR Routine 10/19/2024 4:53 AM PDT WBC AUTO DIFF Routine 10/19/2024 4:53 AM PDT MAGNESIUM Routine 10/19/2024 4:53 AM PDT GLUCOSE, FASTING Routine 10/19/2024 4:53 AM PDT ELECTROLYTE PANEL (NA, K, CL, CO2, ANION GAP) Routine 10/18/2024 4:56 AM PDT BUN Routine 10/18/2024 4:56 AM PDT CREATININE Routine 10/18/2024 4:56 AM PDT CBC W AUTOMATED DIFFERENTIAL Routine 10/18/2024 4:56 AM PDT INR Routine 10/18/2024 4:56 AM PDT WBC AUTO DIFF Routine 10/18/2024 4:56 AM PDT MAGNESIUM Routine 10/18/2024 4:56 AM PDT GLUCOSE, FASTING Routine 10/18/2024 4:56 AM PDT POTASSIUM Routine 10/17/2024 1:53 PM PDT MAGNESIUM Routine 10/17/2024 1:53 PM PDT MAGNESIUM STAT 10/17/2024 12:01 PM PDT ELECTROLYTE PANEL (NA, K, CL, CO2, ANION GAP) Routine 10/17/2024 5:13 AM PDT BUN Routine 10/17/2024 5:13 AM PDT CREATININE Routine 10/17/2024 5:13 AM PDT CBC W AUTOMATED DIFFERENTIAL Routine 10/17/2024 5:13 AM PDT INR Routine 10/17/2024 5:13 AM PDT WBC AUTO DIFF Routine 10/17/2024 5:13 AM PDT MAGNESIUM Routine 10/17/2024 5:13 AM PDT GLUCOSE, FASTING Routine 10/17/2024 5:13 AM PDT STREPTOCOCCUS PNEUMONIAE ANTIGEN, URINE, IMMUNOCHROMATOGRAPHIC ASSAY Routine 10/16/2024 7:37 PM PDT LEGIONELLA PNEUMOPHILA ANTIGEN, URINE, IMMUNOASSAY Routine 10/16/2024 7:37 PM PDT POTASSIUM Timing Critical 10/16/2024 1:19 PM PDT SARS-COV-2 (COVID-19), INFLUENZA A + B, MULTIPLEX STACY Routine 10/16/2024 11:45 AM PDT ELECTROLYTE PANEL (NA, K, CL, CO2, ANION GAP) Routine 10/16/2024 5:48 AM PDT BUN Routine 10/16/2024 5:48 AM PDT CREATININE Routine 10/16/2024 5:48 AM PDT CBC W AUTOMATED DIFFERENTIAL Routine 10/16/2024 5:48 AM PDT B-TYPE NATRIURETIC PEPTIDE (BNP) Routine 10/16/2024 5:48 AM PDT INR Routine 10/16/2024 5:48 AM PDT WBC AUTO DIFF Routine 10/16/2024 5:48 AM PDT GLUCOSE, FASTING Routine 10/16/2024 5:48 AM PDT POTASSIUM Timing Critical 10/15/2024 2:48 PM PDT CLOSTRIDIUM DIFFICILE GDH AG, TOXINS A, B W REFLEX TO PCR Routine 10/15/2024 10:11 AM PDT HEPARIN THERAPY, APTT Timing Critical 10/15/2024 8:12 AM PDT UNFRACTIONATED HEPARIN, ANTI FACTOR XA Timing Critical 10/15/2024 8:12 AM PDT ELECTROLYTE PANEL (NA, K, CL, CO2, ANION GAP) Routine 10/15/2024 5:57 AM PDT ALBUMIN Routine 10/15/2024 5:57 AM PDT BUN Routine 10/15/2024 5:57 AM PDT CREATININE Routine 10/15/2024 5:57 AM PDT CBC W AUTOMATED DIFFERENTIAL Routine 10/15/2024 5:57 AM PDT INR Routine 10/15/2024 5:57 AM PDT WBC AUTO DIFF Routine 10/15/2024 5:57 AM PDT MAGNESIUM Routine 10/15/2024 5:57 AM PDT GLUCOSE, FASTING Routine 10/15/2024 5:57 AM PDT HEPARIN THERAPY, APTT Timing Critical 10/14/2024 10:54 PM PDT UNFRACTIONATED HEPARIN, ANTI FACTOR XA Timing Critical 10/14/2024 10:54 PM PDT BACTERIAL GI PANEL (SALMONELLA, SHIGELLA/EIEC, CAMPYLOBACTER, SHIGA TOXIN DNA), STOOL, MULTIPLEX PCR Routine 10/14/2024 10:38 PM PDT BLOOD CULTURE Timing Critical 10/14/2024 4:14 PM PDT INR STAT 10/14/2024 4:14 PM PDT TROPONIN I, HIGH SENSITIVITY STAT 10/14/2024 3:55 PM PDT BLOOD CULTURE Timing Critical 10/14/2024 3:[address] ABD AND PELVIS NO CONTRAST STAT 10/14/2024 3:26 PM PDT TRANSTHORACIC ECHO (TTE) LIMITED, CV STAT 10/14/2024 3:23 PM PDT PHOSPHATE STAT 10/14/2024 2:04 PM PDT LACTIC ACID, BLOOD Timing Critical 10/14/2024 2:04 PM PDT CALCIUM STAT 10/14/2024 2:04 PM PDT MAGNESIUM STAT 10/14/2024 2:04 PM PDT XR CHEST 1 VIEW STAT 10/14/2024 11:51 AM PDT TROPONIN I, HIGH SENSITIVITY STAT 10/14/2024 11:06 AM PDT ELECTROLYTE PANEL (NA, K, CL, CO2, ANION GAP) STAT 10/14/2024 11:06 AM PDT LACTIC ACID W REFLEX TO REPEAT STAT 10/14/2024 11:06 AM PDT BUN STAT 10/14/2024 11:06 AM PDT ALT STAT 10/14/2024 11:06 AM PDT AST STAT 10/14/2024 11:06 AM PDT ALKALINE PHOSPHATASE STAT 10/14/2024 11:06 AM PDT LIPASE STAT 10/14/2024 11:06 AM PDT CREATININE STAT 10/14/2024 11:06 AM PDT BILIRUBIN, DIRECT STAT 10/14/2024 11:06 AM PDT BILIRUBIN, TOTAL STAT 10/14/2024 11:06 AM PDT APTT STAT 10/14/2024 11:06 AM PDT CBC W AUTOMATED DIFFERENTIAL STAT 10/14/2024 11:06 AM PDT B-TYPE NATRIURETIC PEPTIDE (BNP) STAT 10/14/2024 11:06 AM PDT INR STAT 10/14/2024 11:06 AM PDT WBC AUTO DIFF STAT 10/14/2024 11:06 AM PDT GLUCOSE STAT 10/14/2024 11:06 AM PDT documented in this encounter Results * (ABNORMAL) WBC AUTO DIFF (10/21/2024 4:37 AM PDT) NEUTROPHILS %, AUTOMATED COUNT 79.6 [facility] LYMPHOCYTES %, AUTOMATED COUNT 10.5 [facility] MONOS %, AUTO 5.4 [facility] EOSINOPHILS %, AUTOMATED COUNT 3.2 [facility] BASOPHILS %, AUTOMATED COUNT 0.7 [facility] IMMATURE GRANULOCYTES %, AUTOMATED COUNT 1 [facility] RBC NUCLEATED AUTO COUNT, BLD 0 <=0 % [facility] NEUTROPHILS, ABSOLUTE, AUTOMATED COUNT 6.98 1.80 - 7.70 x1000/mcL [facility] LYMPHOCYTES, AUTOMATED COUNT 0.92(L) 1.00 - 3.60 x1000/mcL [facility] MONOCYTES, AUTOMATED COUNT 0.47 0.10 - 1.00 x1000/mcL [facility] EOSINOPHILS, AUTOMATED COUNT 0.28 0.00 - 0.70 x1000/mcL [facility] BASOPHILS, AUTOMATED COUNT 0.06 0.00 - 0.20 x1000/mcL [facility] IMMATURE GRANULOCYTES, AUTOMATED COUNT 0.05 0.01 - 0.09 x1000/mcL [facility] BLOOD / Unknown 10/21/2024 4 :37 AM PDT Narrative [facility] - 10/21/2024 5:55 AM PDT Catalino Shine M.D. HEMATOLOGY Performing Organization Address City/[facility]/ZIP Co de Phone Number [facility] [address] [place] [address] * (ABNORMAL) PHOSPHATE (10/21/2024 4:37 AM PDT) PHOSPHORUS 2.6(L) 2.7 - 4.5 mg/dL [facility] BLOOD / Unknown 10/21/2024 4 :37 AM PDT Nicolle Sanchez.Ricky Peace D.O. SERUM VP CARDIOVASCULAR RY [facility] [address] [place] [address] * (ABNORMAL) ELECTROLYTE PANEL (NA, K, CL, CO2, ANION GAP) (10/21/2024 4:37 AM PDT) SODIUM 127(L) 135 - 145 mEq/L [facility] POTASSIUM 3.6 3.5 - 5.0 mEq/L [facility] CHLORIDE 96(L) 101 - 111 mEq/L [facility] CO2 22 21 - 31 mEq/L [facility] ANION GAP (NA - (CL + CO2)) 9 3 - 11 mEq/L [facility] BLOOD / Unknown 10/21/2024 4 :37 AM PDT Keyon Peralta) Azael Quiroz SER UM CHEMISTRY Performing Organization Address [facility] Co de Phone Number [facility] [address] [place] [address] * MAGNESIUM (10/21/2024 4:37 AM PDT) MAGNESIUM 2.3 1.7 - 2.8 mg/dL [facility] Comment: Magnesium results between 4.9 mg/dL and 9.7 mg/dL are not considered critical for patients receiving MgSO4 therapy. BLOOD / Unknown 10/21/2024 4 :37 AM PDT Eder Sanchez.Navneet) Javad Witt SERUM CHEMISTRY Performing Organization Address [facility]/ZIP Co de Phone Number [facility] [address] [place] [address] * (ABNORMAL) INR (10/21/2024 4:37 AM PDT) PT INR 3.1(H) 0.8 - 1.2 [facility] BLOOD / Unknown 10/21/2024 4 :37 AM PDT Catalino Peralta) Rl Quiroz COAGULATION Performing Organization Address City/[facility]/ZIP Co de Phone Number [facility] [address] [place] [address] * (ABNORMAL) GLUCOSE, FASTING (10/21/2024 4:37 AM PDT) GLUCOSE, FASTING 117(H) 70 - 99 mg/dL [facility] Comment: A repeatable fasting blood glucose result > 125 mg/dL is diagnostic of diabetes. A single such result can also be confirmed by, a 2 hr OGTT or random plasma glucose > or = 200 mg/dL, or a Hb A1c >6.4%. Patients with fasting blood sugar results between 100 and 125 mg/dL are at increased risk for future diabetes. BLOOD / Unknown 10/21/2024 4 :37 AM PDT Catalino Peralta) Rl Quiroz SERUM CHEMISTR Y [facility] [address] [place] [address] * CREATININE (10/21/2024 4:37 AM PDT) CREATININE 0.73 <=1.10 mg/dL [facility] EGFR, CREATININE-BASED FORMULA (CKD-EPI 2020) 83 >=60 mL/min/BS A [facility] Comment: GFR estimate is by the [...] p roteinuria as appropriate. BLOOD / Unknown 10/21/2024 4 :37 AM PDT Catalino Peralta) Rl Quiroz SERUM CHEMISTR Y Performing Organization Address City/[facility]/ZIP Co de Phone Number [facility] [id number] [place] [address] * BUN (10/21/2024 4:37 AM PDT) BUN 8 <=18 mg/dL [facility] BLOOD / Unknown 10/21/2024 4 :37 AM PDT Catalino Peralta) Rl Quiroz SERUM CHEMISTR Y Performing Organization Address [facility] Co de Phone Number [address] [address] * (ABNORMAL) ELECTROLYTE PANEL (NA, K, CL, CO2, ANION GAP) (10/21/2024 4:37 AM PDT) SODIUM 125(L) 135 - 145 mEq/L [facility] POTASSIUM 3.5 3.5 - 5.0 mEq/L [facility] CHLORIDE 94(L) 101 - 111 mEq/L [facility] CO2 22 21 - 31 mEq/L [facility] ANION GAP (NA - (CL + CO2)) 9 3 - 11 mEq/L [facility] BLOOD / Unknown 10/21/2024 4 :37 AM PDT Catalino Peralta) Rl Quiroz SERUM CHEMISTR Y Performing Organization Address City/[facility]/ZIP Co de Phone Number [facility] [id number] [place] [address] * (ABNORMAL) CBC W AUTOMATED DIFFERENTIAL (10/21/2024 4:37 AM PDT) WBC'S AUTO 8.8 4.0 - 11.0 x1000/mcL [facility] RBC, AUTO 3.45(L) 3.70 - 5.20 Mill/mcL [facility] HGB 9.7(L) 11.5 - 16.0 g/dL [facility] HCT, AUTO 28.7(L) 35.0 - 47.0 % [facility] MCV 83.2 81.0 - 99.0 fL [facility] MCH 28.1 25.0 - 35.0 pg/cell [facility] MCHC 33.8 30.0 - 35.0 g/dL [facility] RDW, BLOOD 14.3 11.5 - 16.0 % [facility] PLATELETS, AUTOMATED COUNT 494(H) 130 - 400 x1000/mcL [facility] BLOOD / Unknown 10/21/2024 4 :37 AM PDT Catalino Peralta) Rl Quiroz HEMATOLOGY Performing Organization Address [facility] Co de Phone Number [facility] [address] [place] [address] * (ABNORMAL) ELECTROLYTE PANEL (NA, K, CL, CO2, ANION GAP) (10/20/2024 11:27 PM PDT) SODIUM 123(L) 135 - 145 mEq/L [facility] POTASSIUM 3.9 3.5 - 5.0 mEq/L [facility] CHLORIDE 92(L) 101 - 111 mEq/L [facility] CO2 20(L) 21 - 31 mEq/L [facility] ANION GAP (NA - (CL + CO2)) 11 3 - 11 mEq/L [facility] BLOOD / Unknown 10/20/2024 1 1:27 PM PDT Keyon Peralta) Azael Quiroz SER CHEMISTRY Performing Organization Address City/[facility]/ZIP Co de Phone Number [facility] [address] [place] [address] * OSMOLALITY, URINE (10/20/2024 9:59 PM PDT) OSMOLALITY, URINE 625 50 - 1,200 mOsm/kg [facility] Comment: Reference Range for Urine Osmolality: Random Specimen : 50-1200 mOsm/kg H2O 24 Hr Specimen: Age: 0-1 Month : 50-645 mOsm/kg H2O Age: 1 Month-Adult : 50-900 mOsm/kg H2O URINE 10/20/2024 9:59 PM PDT Keyon Peralta) Azael GARCIA CHEMISTRY Performing Organization Address [facility] Phone Number [facility] [address] [place] [address] * SODIUM, URINE (10/20/2024 9:59 PM PDT) SODIUM, URINE 56 mEq/L [facility] Comment: To precisely quantify excretion, please collect 24 hour urine. URINE 10/20/2024 9:59 PM PDT Keyon Jeffries M.D. URTreva GARCIA CHEMISTRY Performing Organization Address [facility] Phone Number [facility] [address] [place] [address] * (ABNORMAL) ELECTROLYTE PANEL (NA, K, CL, CO2, ANION GAP) (10/20/2024 5:10 PM PDT) SODIUM 124(L) 135 - 145 mEq/L [facility] POTASSIUM 3.9 3.5 - 5.0 mEq/L [facility] CHLORIDE 92(L) 101 - 111 mEq/L [facility] CO2 19(L) 21 - 31 mEq/L [facility] ANION GAP (NA - (CL + CO2)) 13(H) 3 - 11 mEq/L [facility] BLOOD / Unknown 10/20/2024 5 :10 PM PDT Keyon Peralta) Azael Quiroz SER UM CHEMISTRY Performing Organization Address [facility] de Phone Number [facility] [address] [place] [address] * (ABNORMAL) ELECTROLYTE PANEL (NA, K, CL, CO2, ANION GAP) (10/20/2024 12:07 PM PDT) SODIUM 124(L) 135 - 145 mEq/L [facility] POTASSIUM 3.8 3.5 - 5.0 mEq/L [facility] CHLORIDE 94(L) 101 - 111 mEq/L [facility] CO2 18(L) 21 - 31 mEq/L [facility] ANION GAP (NA - (CL + CO2)) 12(H) 3 - 11 mEq/L [facility] BLOOD / Unknown 10/20/2024 1 2:07 PM PDT Keyon Peralta) Azael Quiroz SER CHEMISTRY Performing Organization Address [facility] Co de Phone Number [facility] [address] [place] [address] * (ABNORMAL) OSMOLALITY, SERUM (10/20/2024 12:07 PM PDT) Pathologist [facility] MEASURED OSMOLALITY 263(L) 280 - 305 mOsm/kg [facility] BLOOD / Unknown 10/20/2024 1 2:07 PM PDT Keyon Peralta) Azael Quiroz SER CHEMISTRY Performing Organization Address [facility] Co de Phone Number [facility] [address] [place] [address] * (ABNORMAL) MAGNESIUM (10/20/2024 4:59 AM PDT) Pathologist [facility] MAGNESIUM 1.6(L) 1.7 - 2.8 mg/dL [facility] Comment: Magnesium results between 4.9 mg/dL and 9.7 mg/dL are not considered critical for patients receiving MgSO4 therapy. BLOOD / Unknown 10/20/2024 4 :59 AM PDT Eder Bhatt) Javad iWtt SERUM CHEMISTRY Performing Organization Address [facility] Co de Phone Number [facility] [address] [place] [address] * (ABNORMAL) INR (10/20/2024 4:59 AM PDT) PT INR 3.1(H) 0.8 - 1.2 [facility] BLOOD / Unknown 10/20/2024 4 :59 AM PDT Catalino Peralta) Rl Quiroz COAGULATION Performing Organization Address [facility] de Phone Number [facility] [id number] [place] [address] * (ABNORMAL) GLUCOSE, FASTING (10/20/2024 4:59 AM PDT) GLUCOSE, FASTING 110(H) 70 - 99 mg/dL [facility] Comment: A repeatable fasting blood glucose result > 125 mg/dL is diagnostic of diabetes. A single such result can also be confirmed by, a 2 hr OGTT or random plasma glucose > or = 200 mg/dL, or a Hb A1c >6.4%. Patients with fasting blood sugar results between 100 and 125 mg/dL are at increased risk for future diabetes. BLOOD / Unknown 10/20/2024 4 :59 AM PDT Catalino Peralta) Rl Quiroz SERUM CHEMISTR Y Performing Organization Address [facility] de Phone Number [facility] [address] [place] [address] * CREATININE (10/20/2024 4:59 AM PDT) CREATININE 0.54 <=1.10 mg/dL [facility] EGFR, CREATININE-BASED FORMULA (CKD-EPI 2020) 93 >=60 mL/min/BS A [facility] Comment: GFR estimate is by the CKD-EPI 2020 equation which uses age, sex, and serum [...] p roteinuria as appropriate. BLOOD / Unknown 10/20/2024 4 :59 AM PDT Catalino Peralta) Rl Quiroz SERUM CHEMISTR Y Performing Organization Address [facility] de Phone Number [facility] [address] [place] [address] * BUN (10/20/2024 4:59 AM PDT) BUN 6 <=18 mg/dL [facility] BLOOD / Unknown 10/20/2024 4 :59 AM PDT Catalino Peralta) Rl Quiroz SERUM CHEMISTR Y Performing Organization Address [facility] de Phone Number [facility] [address] [place] [address] * (ABNORMAL) ELECTROLYTE PANEL (NA, K, CL, CO2, ANION GAP) (10/20/2024 4:59 AM PDT) SODIUM 126(L) 135 - 145 mEq/L [facility] POTASSIUM 3.6 3.5 - 5.0 mEq/L [facility] CHLORIDE 97(L) 101 - 111 mEq/L [facility] CO2 21 21 - 31 mEq/L [facility] ANION GAP (NA - (CL + CO2)) 8 3 - 11 mEq/L [facility] BLOOD / Unknown 10/20/2024 4 :59 AM PDT Catalino Peralta) Rl Quiroz SERUM CHEMISTR Y Performing Organization Address [facility]/ZIP Co de Phone Number [facility] [address] [place] [address] * (ABNORMAL) WBC AUTO DIFF (10/20/2024 4:56 AM PDT) NEUTROPHILS %, AUTOMATED COUNT 82.5 [facility] LYMPHOCYTES %, AUTOMATED COUNT 7.5 [facility] MONOS %, AUTO 6.5 [facility] EOSINOPHILS %, AUTOMATED COUNT 2.1 [facility] BASOPHILS %, AUTOMATED COUNT 0.7 [facility] IMMATURE GRANULOCYTES %, AUTOMATED COUNT 1 [facility] RBC NUCLEATED AUTO COUNT, BLD 0 <=0 % [facility] NEUTROPHILS, ABSOLUTE, AUTOMATED COUNT 7.74(H) 1.80 - 7.70 x1000/mcL [facility] LYMPHOCYTES, AUTOMATED COUNT 0.70(L) 1.00 - 3.60 x1000/mcL [facility] MONOCYTES, AUTOMATED COUNT 0.61 0.10 - 1.00 x1000/mcL [facility] EOSINOPHILS, AUTOMATED COUNT 0.20 0.00 - 0.70 x1000/mcL [facility] BASOPHILS, AUTOMATED COUNT 0.07 0.00 - 0.20 x1000/mcL [facility] IMMATURE GRANULOCYTES, AUTOMATED COUNT 0.07 0.01 - 0.09 x1000/mcL [facility] BLOOD / Unknown 10/20/2024 4 :56 AM PDT Narrative [facility] - 10/20/2024 5:35 AM PDT Catalino Peralta) Rl Quiroz HEMATOLOGY [facility] [address] [place] [address] * (ABNORMAL) CBC W AUTOMATED DIFFERENTIAL (10/20/2024 4:56 AM PDT) WBC'S AUTO 9.4 4.0 - 11.0 x1000/mcL [facility] RBC, AUTO 3.59(L) 3.70 - 5.20 Mill/mcL [facility] HGB 10.0(L) 11.5 - 16.0 g/dL [facility] HCT, AUTO 30.0(L) 35.0 - 47.0 % [facility] MCV 83.6 81.0 - 99.0 fL [facility] MCH 27.9 25.0 - 35.0 pg/cell [facility] MCHC 33.3 30.0 - 35.0 g/dL [facility] RDW, BLOOD 14.3 11.5 - 16.0 % [facility] PLATELETS, AUTOMATED COUNT 435(H) 130 - 400 x1000/mcL [facility] BLOOD / Unknown 10/20/2024 4 :56 AM PDT Catalino Peralta) Rl Quiroz HEMATOLOGY [facility] [id number] [facility] [place] [address] * XR CHEST 1 VIEW (10/19/2024 4:34 PM PDT) Anatomical Region Laterality Modality Chest Other 10/20/2024 6:36 AM PDT Impressions 10/20/2024 6:36 AM PDT FINDINGS/IMPRESSION: Pacemaker and leads remain in place. There is some haziness of the chest, likely due to the presence of bilateral pleural effusion. Retrocardiac left lower lung cannot be adequately assessed because of the overlying heart shadow. Lungs are clear otherwise. Heart size is in the upper limits of normal. This report electronically signed by Justyn Ferrari on 10/20/2024 6:36 AM Narrative 10/20/2024 6:36 AM PDT CLINICAL HISTORY: Reason: hypoxia COMPARISON: Procedure Note Justyn Ferrari M.D., M.D. - 10/20/2024 CLINICAL HISTORY: Reason: hypoxia COMPARISON: IMPRESSION FINDINGS/IMPRESSION: Pacemaker and leads remain in place. There is some haziness of the chest,likely due to the presence of bilateral pleural effusion. Retrocardiacleft lower lung cannot be adequately assessed because of the overlyingheart shadow. Lungs are clear otherwise. Heart size is in the upper limitsof normal. This report electronically signed by Justyn Ferrari on 10/20/2024 6:36 AM Keyon Peralta) Azael Quiroz GEN [facility] * (ABNORMAL) ELECTROLYTE PANEL (NA, K, CL, CO2, ANION GAP) (10/19/2024 1:56 PM PDT) Pathologist [facility] SODIUM 129(L) 135 - 145 mEq/L [facility] POTASSIUM 4.3 3.5 - 5.0 mEq/L [facility] CHLORIDE 100(L) 101 - 111 mEq/L [facility] CO2 21 21 - 31 mEq/L [facility] ANION GAP (NA - (CL + CO2)) 8 3 - 11 mEq/L [facility] BLOOD / Unknown 10/19/2024 1 :56 PM PDT Eder Monreal (D.OLamar) Javad Witt SERUM CHEMISTRY [facility] [address] [facility] [place] [address] * (ABNORMAL) WBC AUTO DIFF (10/19/2024 4:53 AM PDT) Pathologist [facility] NEUTROPHILS %, AUTOMATED COUNT 84.0 [facility] LYMPHOCYTES %, AUTOMATED COUNT 6.7 [facility] MONOS %, AUTO 5.5 [facility] EOSINOPHILS %, AUTOMATED COUNT 2.4 [facility] BASOPHILS %, AUTOMATED COUNT 0.7 [facility] [facility] IMMATURE GRANULOCYTES %, AUTOMATED COUNT 1 [facility] RBC NUCLEATED AUTO COUNT, BLD 0 <=0 % [facility] NEUTROPHILS, ABSOLUTE, AUTOMATED COUNT 9.47(H) 1.80 - 7.70 x1000/mcL [facility] LYMPHOCYTES, AUTOMATED COUNT 0.75(L) 1.00 - 3.60 x1000/mcL [facility] MONOCYTES, AUTOMATED COUNT 0.62 0.10 - 1.00 x1000/mcL [facility] EOSINOPHILS, AUTOMATED COUNT 0.27 0.00 - 0.70 x1000/mcL [facility] BASOPHILS, AUTOMATED COUNT 0.08 0.00 - 0.20 x1000/mcL [facility] IMMATURE GRANULOCYTES, AUTOMATED COUNT 0.08 0.01 - 0.09 x1000/mcL [facility] BLOOD / Unknown 10/19/2024 4 :53 AM PDT Narrative [facility] - 10/19/2024 5:29 AM PDT Catalino Peralta) Rl Quiroz HEMATOLOGY Performing Organization Address [facility] Co de Phone Number [facility] [address] [place] [address] * MAGNESIUM (10/19/2024 4:53 AM PDT) MAGNESIUM 1.8 1.7 - 2.8 mg/dL [facility] Comment: Magnesium results between 4.9 mg/dL and 9.7 mg/dL are not considered critical for patients receiving MgSO4 therapy. BLOOD / Unknown 10/19/2024 4 :53 AM PDT Eder Bhatt) Javad Witt SERUM CHEMISTRY Performing Organization Address [facility] de Phone Number [facility] [address] [place] [address] * (ABNORMAL) INR (10/19/2024 4:53 AM PDT) PT INR 2.9(H) 0.8 - 1.2 [facility] BLOOD / Unknown 10/19/2024 4 :53 AM PDT Catalino Shine M.D. COAGULATION Performing Organization Address [facility] Co de Phone Number [facility] [address] [place] [address] * (ABNORMAL) GLUCOSE, FASTING (10/19/2024 4:53 AM PDT) GLUCOSE, FASTING 118(H) 70 - 99 mg/dL [facility] Comment: A repeatable fasting blood glucose result > 125 mg/dL is diagnostic of diabetes. A single such result can also be confirmed by, a 2 hr OGTT or random plasma glucose > or = 200 mg/dL, or a Hb A1c >6.4%. Patients with fasting blood sugar results between 100 and 125 mg/dL are at increased risk for future diabetes. BLOOD / Unknown 10/19/2024 4 :53 AM PDT Catalino Peralta) Rl Quiroz SERUM CHEMISTR Y [facility] [address] [place] [address] * CREATININE (10/19/2024 4:53 AM PDT) CREATININE 0.69 <=1.10 mg/dL [facility] EGFR, CREATININE-BASED FORMULA (CKD-EPI 2020) 88 >=60 mL/min/BS A [facility] Comment: GFR estimate is by the [...] p roteinuria as appropriate. BLOOD / Unknown 10/19/2024 4 :53 AM PDT Catalino Peralta) Rl Quiroz SERUM CHEMISTR Y Performing Organization Address City/[facility] Co de Phone Number [facility] [id number] [place] [address] * BUN (10/19/2024 4:53 AM PDT) BUN 6 <=18 mg/dL [facility] BLOOD / Unknown 10/19/2024 4 :53 AM PDT Catalino Peralta) Rl Quiroz SERUM CHEMISTR Y Performing Organization Address [facility] Co de Phone Number [address] [address] * (ABNORMAL) ELECTROLYTE PANEL (NA, K, CL, CO2, ANION GAP) (10/19/2024 4:53 AM PDT) SODIUM 127(L) 135 - 145 mEq/L [facility] POTASSIUM 3.7 3.5 - 5.0 mEq/L [facility] CHLORIDE 100(L) 101 - 111 mEq/L [facility] CO2 18(L) 21 - 31 mEq/L [facility] ANION GAP (NA - (CL + CO2)) 9 3 - 11 mEq/L [facility] BLOOD / Unknown 10/19/2024 4 :53 AM PDT Catalino Peralta) Rl Quiroz SERUM CHEMISTR Y Performing Organization Address [facility] Co de Phone Number [facility] [address] [place] [address] * (ABNORMAL) CBC W AUTOMATED DIFFERENTIAL (10/19/2024 4:53 AM PDT) WBC'S AUTO 11.3(H) 4.0 - 11.0 x1000/mcL [facility] RBC, AUTO 3.51(L) 3.70 - 5.20 Mill/mcL [facility] HGB 10.2(L) 11.5 - 16.0 g/dL [facility] HCT, AUTO 29.6(L) 35.0 - 47.0 % [facility] MCV 84.3 81.0 - 99.0 fL [facility] MCH 29.1 25.0 - 35.0 pg/cell [facility] MCHC 34.5 30.0 - 35.0 g/dL [facility] RDW, BLOOD 14.6 11.5 - 16.0 % [facility] PLATELETS, AUTOMATED COUNT 370 130 - 400 x1000/mcL [facility] BLOOD / Unknown 10/19/2024 4 :53 AM PDT Catalino Peralta) Rl Quiroz HEMATOLOGY Performing Organization Address City/State/[facility] Co de Phone Number [facility] [address] [facility] [place] [address] * (ABNORMAL) WBC AUTO DIFF (10/18/2024 4:56 AM PDT) NEUTROPHILS %, AUTOMATED COUNT 85.9 [facility] LYMPHOCYTES %, AUTOMATED COUNT 5.8 [facility] MONOS %, AUTO 5.8 [facility] EOSINOPHILS %, AUTOMATED COUNT 1.5 [facility] BASOPHILS %, AUTOMATED COUNT 0.5 [facility] IMMATURE GRANULOCYTES %, AUTOMATED COUNT 0 [facility] RBC NUCLEATED AUTO COUNT, BLD 0 <=0 % [facility] NEUTROPHILS, ABSOLUTE, AUTOMATED COUNT 9.75(H) 1.80 - 7.70 x1000/mcL [facility] LYMPHOCYTES, AUTOMATED COUNT 0.66(L) 1.00 - 3.60 x1000/mcL [facility] MONOCYTES, AUTOMATED COUNT 0.66 0.10 - 1.00 x1000/mcL [facility] EOSINOPHILS, AUTOMATED COUNT 0.17 0.00 - 0.70 x1000/mcL [facility] BASOPHILS, AUTOMATED COUNT 0.06 0.00 - 0.20 x1000/mcL [facility] IMMATURE GRANULOCYTES, AUTOMATED COUNT 0.06 0.01 - 0.09 x1000/mcL [facility] BLOOD / Unknown 10/18/2024 4 :56 AM PDT Narrative [facility] - 10/18/2024 5:55 AM PDT Catalino Peralta) Rl Quiroz HEMATOLOGY Performing Organization Address [facility] de Phone Number [facility] [address] [place] [address] * MAGNESIUM (10/18/2024 4:56 AM PDT) MAGNESIUM 2.1 1.7 - 2.8 mg/dL [facility] Comment: Magnesium results between 4.9 mg/dL and 9.7 mg/dL are not considered critical for patients receiving MgSO4 therapy. BLOOD / Unknown 10/18/2024 4 :56 AM PDT Eder SantamariaD.OLamar) Javad Witt SERUM CHEMISTRY Performing Organization Address [facility] de Phone Number [facility] [address] [place] [address] * (ABNORMAL) INR (10/18/2024 4:56 AM PDT) PT INR 2.4(H) 0.8 - 1.2 [facility] BLOOD / Unknown 10/18/2024 4 :56 AM PDT Catalino Shine M.D. COAGULATION Performing Organization Address [facility] de Phone Number [facility] [address] [place] [address] * (ABNORMAL) GLUCOSE, FASTING (10/18/2024 4:56 AM PDT) GLUCOSE, FASTING 134(H) 70 - 99 mg/dL [facility] Comment: A repeatable fasting blood glucose result > 125 mg/dL is diagnostic of diabetes. A single such result can also be confirmed by, a 2 hr OGTT or random plasma glucose > or = 200 mg/dL, or a Hb A1c >6.4%. Patients with fasting blood sugar results between 100 and 125 mg/dL are at increased risk for future diabetes. BLOOD / Unknown 10/18/2024 4 :56 AM PDT Catalino Peralta) Rl Quiroz SERUM CHEMISTR Y Performing Organization Address City/State/[facility] Co de Phone Number [facility] [address] [place] [address] * CREATININE (10/18/2024 4:56 AM PDT) CREATININE 0.86 <=1.10 mg/dL [facility] EGFR, CREATININE-BASED FORMULA (CKD-EPI 2020) 68 >=60 mL/min/BS A [facility] Comment: GFR estimate is by the CKD-EPI 2020 equation which uses age, sex, and serum [...] p roteinuria as appropriate. BLOOD / Unknown 10/18/2024 4 :56 AM PDT Catalino Peralta) Rl Quiroz SERUM CHEMISTR Y Performing Organization Address City/[facility] Co de Phone Number [facility] [address] [place] [address] * BUN (10/18/2024 4:56 AM PDT) BUN 13 <=18 mg/dL [facility] BLOOD / Unknown 10/18/2024 4 :56 AM PDT Catalino Peralta) Rl Quiroz SERUM CHEMISTR Y Performing Organization Address [facility] de Phone Number [facility] [address] [place] [address] * (ABNORMAL) ELECTROLYTE PANEL (NA, K, CL, CO2, ANION GAP) (10/18/2024 4:56 AM PDT) [facility] SODIUM 130(L) 135 - 145 mEq/L [facility] POTASSIUM 3.8 3.5 - 5.0 mEq/L [facility] CHLORIDE 104 101 - 111 mEq/L [facility] CO2 18(L) 21 - 31 mEq/L [facility] ANION GAP (NA - (CL + CO2)) 8 3 - 11 mEq/L [facility] BLOOD / Unknown 10/18/2024 4 :56 AM PDT Catalino Peralta) Rl Quiroz SERUM CHEMISTR Y Performing Organization Address [facility] de Phone Number [facility] [address] [place] [address] * (ABNORMAL) CBC W AUTOMATED DIFFERENTIAL (10/18/2024 4:56 AM PDT) Pathologist [facility] WBC'S AUTO 11.4(H) 4.0 - 11.0 x1000/mcL [facility] RBC, AUTO 3.60(L) 3.70 - 5.20 Mill/mcL [facility] HGB 10.0(L) 11.5 - 16.0 g/dL [facility] HCT, AUTO 30.8(L) 35.0 - 47.0 % [facility] MCV 85.6 81.0 - 99.0 fL [facility] MCH 27.8 25.0 - 35.0 pg/cell [facility] MCHC 32.5 30.0 - 35.0 g/dL [facility] RDW, BLOOD 14.6 11.5 - 16.0 % [facility] PLATELETS, AUTOMATED COUNT 344 130 - 400 x1000/mcL [facility] BLOOD / Unknown 10/18/2024 4 :56 AM PDT Catalino Peralta) Rl Quiroz HEMATOLOGY Performing Organization Address [facility] Co de Phone Number [facility] [address] [place] [address] * (ABNORMAL) POTASSIUM (10/17/2024 1:53 PM PDT) POTASSIUM 3.4(L) 3.5 - 5.0 mEq/L [facility] BLOOD / Unknown 10/17/2024 1 :53 PM PDT Eder Sanchez.O.) Leeroycera D.O. SERUM CHEMISTRY Performing Organization Address [facility] Co de Phone Number [facility] [address] [place] [address] * MAGNESIUM (10/17/2024 1:53 PM PDT) MAGNESIUM 2.0 1.7 - 2.8 mg/dL [facility] Comment: Magnesium results between 4.9 mg/dL and 9.7 mg/dL are not considered critical for patients receiving MgSO4 therapy. BLOOD / Unknown 10/17/2024 1 :53 PM PDT Eder Monreal (D.O.) Moncera D.O. SERUM CHEMISTRY Performing Organization Address [facility] Co de Phone Number [facility] [address] [place] [address] * MAGNESIUM (10/17/2024 12:01 PM PDT) MAGNESIUM 2.3 1.7 - 2.8 mg/dL [facility] Comment: Magnesium results between 4.9 mg/dL and 9.7 mg/dL are not considered critical for patients receiving MgSO4 therapy. BLOOD / Unknown 10/17/2024 1 2:01 PM PDT Debbie Peralta) Shen Quiroz SERUM VP CARDIOVASCULAR RY Performing Organization Address City/[facility]/ZIP Co de Phone Number [facility] [address] [place] [address] * (ABNORMAL) MAGNESIUM (10/17/2024 5:13 AM PDT) MAGNESIUM 1.6(L) 1.7 - 2.8 mg/dL [facility] Comment: Magnesium results between 4.9 mg/dL and 9.7 mg/dL are not considered critical for patients receiving MgSO4 therapy. BLOOD / Unknown 10/17/2024 5 :13 AM PDT Eder Sanchez.Navneet) Javad Witt SERUM CHEMISTRY Performing Organization Address [facility] de Phone Number [facility] [address] [place] [address] * (ABNORMAL) WBC AUTO DIFF (10/17/2024 5:13 AM PDT) NEUTROPHILS %, AUTOMATED COUNT 85.0 [facility] LYMPHOCYTES %, AUTOMATED COUNT 6.4 [facility] MONOS %, AUTO 7.0 [facility] EOSINOPHILS %, AUTOMATED COUNT 0.7 [facility] BASOPHILS %, AUTOMATED COUNT 0.4 [facility] IMMATURE GRANULOCYTES %, AUTOMATED COUNT 0 [facility] RBC NUCLEATED AUTO COUNT, BLD 0 <=0 % [facility] NEUTROPHILS, ABSOLUTE, AUTOMATED COUNT 8.00(H) 1.80 - 7.70 x1000/mcL [facility] LYMPHOCYTES, AUTOMATED COUNT 0.60(L) 1.00 - 3.60 x1000/mcL [facility] MONOCYTES, AUTOMATED COUNT 0.66 0.10 - 1.00 x1000/mcL [facility] EOSINOPHILS, AUTOMATED COUNT 0.07 0.00 - 0.70 x1000/mcL [facility] BASOPHILS, AUTOMATED COUNT 0.04 0.00 - 0.20 x1000/mcL [facility] IMMATURE GRANULOCYTES, AUTOMATED COUNT 0.05 0.01 - 0.09 x1000/mcL [facility] BLOOD / Unknown 10/17/2024 5 :13 AM PDT Narrative [facility] - 10/17/2024 5:34 AM PDT Catalino Peralta) Rl Quiroz HEMATOLOGY Performing Organization Address [facility] de Phone Number [facility] [address] [place] [address] * (ABNORMAL) INR (10/17/2024 5:13 AM PDT) PT INR 2.0(H) 0.8 - 1.2 [facility] BLOOD / Unknown 10/17/2024 5 :13 AM PDT Catalino Shine M.D. COAGULATION Performing Organization Address [facility] Phone Number [facility] [address] [place] [address] * (ABNORMAL) GLUCOSE, FASTING (10/17/2024 5:13 AM PDT) GLUCOSE, FASTING 114(H) 70 - 99 mg/dL [facility] Comment: A repeatable fasting blood glucose result > 125 mg/dL is diagnostic of diabetes. A single such result can also be confirmed by, a 2 hr OGTT or random plasma glucose > or = 200 mg/dL, or a Hb A1c >6.4%. Patients with fasting blood sugar results between 100 and 125 mg/dL are at increased risk for future diabetes. BLOOD / Unknown 10/17/2024 5 :13 AM PDT Catalino Peralta) Rl Quiroz SERUM CHEMISTR Y Performing Organization Address [facility] de Phone Number [facility] [address] [place] [address] * CREATININE (10/17/2024 5:13 AM PDT) CREATININE 0.74 <=1.10 mg/dL [facility] EGFR, CREATININE-BASED FORMULA (CKD-EPI 2020) 82 >=60 mL/min/BS A [facility] Comment: GFR estimate is by the CKD-EPI 2020 equation which uses age, sex, and serum [...] p roteinuria as appropriate. BLOOD / Unknown 10/17/2024 5 :13 AM PDT Catalino Peralta) Rl Quiroz SERUM CHEMISTR Y Performing Organization Address [facility] de Phone Number [address] [address] * BUN (10/17/2024 5:13 AM PDT) BUN 7 <=18 mg/dL [facility] BLOOD / Unknown 10/17/2024 5 :13 AM PDT Catalino Peralta) Rl Quiroz SERUM CHEMISTR Y Performing Organization Address [facility] de Phone Number [address] [address] * (ABNORMAL) ELECTROLYTE PANEL (NA, K, CL, CO2, ANION GAP) (10/17/2024 5:13 AM PDT) SODIUM 133(L) 135 - 145 mEq/L [facility] POTASSIUM 3.5 3.5 - 5.0 mEq/L [facility] CHLORIDE 102 101 - 111 mEq/L [facility] CO2 22 21 - 31 mEq/L [facility] ANION GAP (NA - (CL + CO2)) 9 3 - 11 mEq/L [facility] BLOOD / Unknown 10/17/2024 5 :13 AM PDT Catalino Peralta) Rl Quiroz SERUM CHEMISTR Y Performing Organization Address [facility] Co de Phone Number [facility] [address] [place] [address] * (ABNORMAL) CBC W AUTOMATED DIFFERENTIAL (10/17/2024 5:13 AM PDT) WBC'S AUTO 9.4 4.0 - 11.0 x1000/mcL [facility] RBC, AUTO 3.74 3.70 - 5.20 Mill/mcL [facility] HGB 10.5(L) 11.5 - 16.0 g/dL [facility] HCT, AUTO 31.6(L) 35.0 - 47.0 % [facility] MCV 84.5 81.0 - 99.0 fL [facility] MCH 28.1 25.0 - 35.0 pg/cell [facility] MCHC 33.2 30.0 - 35.0 g/dL [facility] RDW, BLOOD 13.9 11.5 - 16.0 % [facility] PLATELETS, AUTOMATED COUNT 296 130 - 400 x1000/mcL [facility] BLOOD / Unknown 10/17/2024 5 :13 AM PDT Catalino Peralta) Rl Quiroz HEMATOLOGY Performing Organization Address City/[facility] Co de Phone Number [facility] [address] [place] [address] * STREPTOCOCCUS PNEUMONIAE ANTIGEN, URINE, IMMUNOCHROMATOGRAPHIC ASSAY (10/16/2024 7:37 PM PDT) Pathologist [facility] STREPTOCOCCUS PNEUMONIAE AG, URINE Negative Negative [facility] Comment: Adults with pneumococcal pneumonia sensitivity 50-80%; specificity 90%. Children with pneumococcal pneumonia sensitivity 80-90%; specificity 60-80%. URINE 10/16/2024 7:37 PM PDT Eder Monreal (D.O.) Leeroycera D.O. IMMUNOLOGY Performing Organization Address City/[facility]/ZIP Co de Phone Number [facility] [address] [place] [address] * LEGIONELLA PNEUMOPHILA ANTIGEN, URINE, IMMUNOASSAY (10/16/2024 7:37 PM PDT) LEGIONELLA PNEUMOPHILA AG, URINE, EIA Presumptive Negative Presumptive Negative [facility] Comment: Presumptive positive for the presence of L. pneumophila serogroup 1 antigen in urine, suggesting current or past infection. Please submit a respiratory specimen for LEGIONELLA SPECIES CULTURE [[facility] order code: [id number]]. Urinary Legionella antigen may persist long after active infection has resolved. More conclusive evidence of active infection is obtained from LEGIONELLA SPECIES CULTURE [[facility] order code: [id number]], Results of this assay should be interpreted in conjunction with other laboratory and clinical data available to the clinician. Presumptive negative for L. pneumophila serogroup 1 antigen in urine, suggesting no recent or current infection. Results of this assay should be interpreted in conjunction with other laboratory and clinical data available to the clinician. Specimens are tested for Legionella pneumophila Serogroup 1 Antigen only. A negative result does not rule out Legionnaires' Disease since other serogroups and species may also cause this disease. URINE 10/16/2024 7:37 PM PDT Eder Monreal (D.O.) Carlosa D.O. OUTSIDE TESTING Performing Organization Address City/[facility]/ZIP Co de Phone Number [facility] [address] [place] [address] * POTASSIUM (10/16/2024 1:19 PM PDT) POTASSIUM 3.7 3.5 - 5.0 mEq/L [facility] BLOOD / Unknown 10/16/2024 1 :19 PM PDT Eder Sanchez.Gina.) Javad Barbosa.OLamar SERUM CHEMISTRY Performing Organization Address [facility] Co de Phone Number [facility] [address] [place] [address] * SARS-COV-2 (COVID-19), INFLUENZA A + B, MULTIPLEX STACY (10/16/2024 11:45 AM PDT) SARS-COV-2 (COVID-19), QUALITATIVE, STACY Not Detected Not Detected [facility] INFLUENZA VIRUS A, PCR Not Detected Not Detected [facility] INFLUENZA VIRUS B RNA, PCR Not Detected Not Detected [facility] Comment: Positive results do not rule out co-infection with other organisms. The agent(s) detected by the debbi SARS-CoV-2 & Influenza A/B may not be the definite cause of disease. Negative results do not preclude SARS-CoV-2, influenza A, and/or influenza B infection. The results of this test should not be used as the sole basis for diagnosis, treatment, or other patient management decisions. For Invalid results, please resubmit if clinically indicated. NASAL SWAB 10/16/2024 11:4 5 AM PDT Eder Sanchez.Gina.) Javad Barbosa.Navneet VIROLOGY Performing Organization Address [facility] Co de Phone Number [facility] [address] [place] [address] * (ABNORMAL) B-TYPE NATRIURETIC PEPTIDE (BNP) (10/16/2024 5:48 AM PDT) B TYPE NATRIURETIC PEPTIDE 464(H) <=99 pg/mL [facility] Comment: Less than 100: Not likely heart failure 100-500: Indeterminate range Greater than 500: Heart failure likely For Indeterminate results, one must consider the following: Baseline BNP value elevated due to stable underlying dysfunction; right ventricular failure present from COR Pulmonale; Acute pulmonary embolism or renal failure. BLOOD / Unknown 10/16/2024 5 :48 AM PDT Eder Monreal (Familia.Navneet) Javad Witt SERUM CHEMISTRY Performing Organization Address [facility] Co de Phone Number [facility] [address] [place] [address] * (ABNORMAL) WBC AUTO DIFF (10/16/2024 5:48 AM PDT) NEUTROPHILS %, AUTOMATED COUNT 84.4 [facility] LYMPHOCYTES %, AUTOMATED COUNT 7.4 [facility] MONOS %, AUTO 6.3 [facility] EOSINOPHILS %, AUTOMATED COUNT 0.9 [facility] BASOPHILS %, AUTOMATED COUNT 0.6 [facility] IMMATURE GRANULOCYTES %, AUTOMATED COUNT 0 [facility] RBC NUCLEATED AUTO COUNT, BLD 0 <=0 % [facility] NEUTROPHILS, ABSOLUTE, AUTOMATED COUNT 8.11(H) 1.80 - 7.70 x1000/mcL [facility] LYMPHOCYTES, AUTOMATED COUNT 0.71(L) 1.00 - 3.60 x1000/mcL [facility] MONOCYTES, AUTOMATED COUNT 0.61 0.10 - 1.00 x1000/mcL [facility] EOSINOPHILS, AUTOMATED COUNT 0.09 0.00 - 0.70 x1000/mcL [facility] BASOPHILS, AUTOMATED COUNT 0.06 0.00 - 0.20 x1000/mcL [facility] IMMATURE GRANULOCYTES, AUTOMATED COUNT 0.04 0.01 - 0.09 x1000/mcL [facility] BLOOD / Unknown 10/16/2024 5 :48 AM PDT Narrative [facility] - 10/16/2024 6:13 AM PDT Other providers have received this result due to duplicate orders for this test. You may have ordered this exact test or one of its components. Thus, coordination of care is necessary. Click on the Order Details hyperlink for indication of all providers who have received notification of this result. Catalino Peralta) Rl Quiroz HEMATOLOGY Performing Organization Address [facility] Co de Phone Number [facility] [address] [place] [address] * (ABNORMAL) INR (10/16/2024 5:48 AM PDT) PT INR 1.8(H) 0.8 - 1.2 [facility] BLOOD / Unknown 10/16/2024 5 :48 AM PDT Catalino Peralta) Rl Quiroz COAGULATION Performing Organization Address [facility] Phone Number [facility] [id number] [place] [address] * (ABNORMAL) GLUCOSE, FASTING (10/16/2024 5:48 AM PDT) GLUCOSE, FASTING 115(H) 70 - 99 mg/dL [facility] Comment: A repeatable fasting blood glucose result > 125 mg/dL is diagnostic of diabetes. A single such result can also be confirmed by, a 2 hr OGTT or random plasma glucose > or = 200 mg/dL, or a Hb A1c >6.4%. Patients with fasting blood sugar results between 100 and 125 mg/dL are at increased risk for future diabetes. BLOOD / Unknown 10/16/2024 5 :48 AM PDT Catalino Peralta) Rl Quiroz SERUM CHEMISTR Y Performing Organization Address [facility] Phone Number [facility] [address] [place] [address] * CREATININE (10/16/2024 5:48 AM PDT) CREATININE 0.74 <=1.10 mg/dL [facility] EGFR, CREATININE-BASED FORMULA (CKD-EPI 2020) 82 >=60 mL/min/BS A [facility] Comment: GFR estimate is by the [...] p roteinuria as appropriate. BLOOD / Unknown 10/16/2024 5 :48 AM PDT Catalino Peralta) Rl Quiroz SERUM CHEMISTR Y Performing Organization Address [facility] de Phone Number [facility] [address] [place] [address] * BUN (10/16/2024 5:48 AM PDT) BUN 7 <=18 mg/dL [facility] BLOOD / Unknown 10/16/2024 5 :48 AM PDT Catalino Peralta) Rl Quiroz SERUM CHEMISTR Y Performing Organization Address [facility] Co de Phone Number [facility] [address] [address] * (ABNORMAL) ELECTROLYTE PANEL (NA, K, CL, CO2, ANION GAP) (10/16/2024 5:48 AM PDT) SODIUM 134(L) 135 - 145 mEq/L [facility] POTASSIUM 3.3(L) 3.5 - 5.0 mEq/L [facility] CHLORIDE 102 101 - 111 mEq/L [facility] CO2 23 21 - 31 mEq/L [facility] ANION GAP (NA - (CL + CO2)) 9 3 - 11 mEq/L [facility] BLOOD / Unknown 10/16/2024 5 :48 AM PDT Catalino Peralta) Rl Quiroz SERUM CHEMISTR Y Performing Organization Address [facility] Co de Phone Number [facility] [address] [place] [address] * (ABNORMAL) CBC W AUTOMATED DIFFERENTIAL (10/16/2024 5:48 AM PDT) WBC'S AUTO 9.6 4.0 - 11.0 x1000/mcL [facility] RBC, AUTO 3.88 3.70 - 5.20 Mill/mcL [facility] HGB 10.8(L) 11.5 - 16.0 g/dL [facility] HCT, AUTO 32.6(L) 35.0 - 47.0 % [facility] MCV 84.0 81.0 - 99.0 fL [facility] MCH 27.8 25.0 - 35.0 pg/cell [facility] MCHC 33.1 30.0 - 35.0 g/dL [facility] RDW, BLOOD 13.8 11.5 - 16.0 % [facility] PLATELETS, AUTOMATED COUNT 293 130 - 400 x1000/mcL [facility] BLOOD / Unknown 10/16/2024 5 :48 AM PDT Narrative [facility] - 10/16/2024 6:13 AM PDT Other providers have received this result due to duplicate orders for this test. You may have ordered this exact test or one of its components. Thus, coordination of care is necessary. Click on the Order Details hyperlink for indication of all providers who have received notification of this result. Catalino Peralta) Rl Quiroz HEMATOLOGY Performing Organization Address [facility] Co de Phone Number [facility] [address] [place] [address] * POTASSIUM (10/15/2024 2:48 PM PDT) POTASSIUM 3.9 3.5 - 5.0 mEq/L [facility] BLOOD / Unknown 10/15/2024 2 :48 PM PDT Eder Monreal (D.O.) Javad D.O. SERUM CHEMISTRY Performing Organization Address [facility] Phone Number [facility] [address] [place] [address] * CLOSTRIDIUM DIFFICILE GDH AG, TOXINS A, B W REFLEX TO PCR (10/15/2024 10:11 AM PDT) CLOSTRIDIOIDES (CLOSTRIDIUM) DIFFICILE AG AND TOXINS A+B, STOOL Negative Negative [facility] Comment: A finding of I ndeterminate represents discrepant immunoassay results obtained for GDH (antigen specific to C. difficile) and toxin production. Molecular testing (nucleic acid amplification) will follow to confirm results. STOOL 10/15/2024 10:1 1 AM PDT Eder Monreal (D.O.) Javad Barbosa.OLamar MICROBIOLOGY Performing Organization Address [facility] de Phone Number [facility] [address] [place] [address] * (ABNORMAL) UNFRACTIONATED HEPARIN, ANTI FACTOR XA (10/15/2024 8:12 AM PDT) HEPARIN, UNFRACTIONATED <0.10(L) 0.30 - 0.70 IU/mL [facility] BLOOD / Unknown 10/15/2024 8 :12 AM PDT Anish (R.P.H.) Chris PHARMMagdalene COAGULATION Performing Organization Address [facility] de Phone Number [facility] [address] [place] [address] * (ABNORMAL) HEPARIN THERAPY, APTT (10/15/2024 8:12 AM PDT) APTT 52(L) 68 - 105 Sec [facility] BLOOD / Unknown 10/15/2024 8 :12 AM PDT Anish (R.P.H.) Chris HARRIS COAGULATION [facility] [address] [place] [address] * (ABNORMAL) WBC AUTO DIFF (10/15/2024 5:57 AM PDT) NEUTROPHILS %, AUTOMATED COUNT 85.1 [facility] LYMPHOCYTES %, AUTOMATED COUNT 7.7 [facility] MONOS %, AUTO 6.1 [facility] EOSINOPHILS %, AUTOMATED COUNT 0.4 [facility] BASOPHILS %, AUTOMATED COUNT 0.5 [facility] IMMATURE GRANULOCYTES %, AUTOMATED COUNT 0 [facility] RBC NUCLEATED AUTO COUNT, BLD 0 <=0 % [facility] NEUTROPHILS, ABSOLUTE, AUTOMATED COUNT 8.21(H) 1.80 - 7.70 x1000/mcL [facility] LYMPHOCYTES, AUTOMATED COUNT 0.74(L) 1.00 - 3.60 x1000/mcL [facility] MONOCYTES, AUTOMATED COUNT 0.59 0.10 - 1.00 x1000/mcL [facility] EOSINOPHILS, AUTOMATED COUNT 0.04 0.00 - 0.70 x1000/mcL [facility] BASOPHILS, AUTOMATED COUNT 0.05 0.00 - 0.20 x1000/mcL [facility] IMMATURE GRANULOCYTES, AUTOMATED COUNT 0.02 0.01 - 0.09 x1000/mcL [facility] BLOOD / Unknown 10/15/2024 5 :57 AM PDT Narrative [facility] - 10/15/2024 6:23 AM PDT Other providers have received this result due to duplicate orders for this test. You may have ordered this exact test or one of its components. Thus, coordination of care is necessary. Click on the Order Details hyperlink for indication of all providers who have received notification of this result. Catalino Peralta) Rl Quiroz HEMATOLOGY Performing Organization Address City/[facility]/ZIP Co de Phone Number [facility] [address] [place] [address] * (ABNORMAL) INR (10/15/2024 5:57 AM PDT) PT INR 2.1(H) 0.8 - 1.2 [facility] BLOOD / Unknown 10/15/2024 5 :57 AM PDT Catalino Peralta) Rl Quiroz COAGULATION Performing Organization Address [facility] Co de Phone Number [facility] [address] [place] [address] * (ABNORMAL) GLUCOSE, FASTING (10/15/2024 5:57 AM PDT) GLUCOSE, FASTING 125(H) 70 - 99 mg/dL [facility] Comment: A repeatable fasting blood glucose result > 125 mg/dL is diagnostic of diabetes. A single such result can also be confirmed by, a 2 hr OGTT or random plasma glucose > or = 200 mg/dL, or a Hb A1c >6.4%. Patients with fasting blood sugar results between 100 and 125 mg/dL are at increased risk for future diabetes. BLOOD / Unknown 10/15/2024 5 :57 AM PDT Catalino Shine M.D. SERUM CHEMISTR Y Performing Organization Address [facility] de Phone Number [facility] [address] [place] [address] * (ABNORMAL) ALBUMIN (10/15/2024 5:57 AM PDT) ALBUMIN 2.4(L) 3.3 - 4.8 g/dL [facility] BLOOD / Unknown 10/15/2024 5 :57 AM PDT Catalino Peralta) Rl Quiroz SERUM CHEMISTR Y Performing Organization Address [facility] Co de Phone Number [facility] [address] [place] [address] * MAGNESIUM (10/15/2024 5:57 AM PDT) MAGNESIUM 2.0 1.7 - 2.8 mg/dL [facility] Comment: Magnesium results between 4.9 mg/dL and 9.7 mg/dL are not considered critical for patients receiving MgSO4 therapy. BLOOD / Unknown 10/15/2024 5 :57 AM PDT Catalino Peralta) Rl Quiroz SERUM CHEMISTR Y Performing Organization Address [facility] de Phone Number [facility] [address] [address] * CREATININE (10/15/2024 5:57 AM PDT) CREATININE 0.77 <=1.10 mg/dL [facility] EGFR, CREATININE-BASED FORMULA (CKD-EPI 2020) 78 >=60 mL/min/BS A [facility] Comment: GFR estimate is by the CKD-EPI 2020 equation which uses age, sex, and serum [...] p roteinuria as appropriate. BLOOD / Unknown 10/15/2024 5 :57 AM PDT Catalino Peralta) Rl Quiroz SERUM CHEMISTR Y Performing Organization Address [facility] Co de Phone Number [facility] [address] [place] [address] * BUN (10/15/2024 5:57 AM PDT) BUN 14 <=18 mg/dL [facility] BLOOD / Unknown 10/15/2024 5 :57 AM PDT Catalino Peralta) Rl Quiroz SERUM CHEMISTR Y Performing Organization Address City/[facility] Co de Phone Number [facility] [id number] [place] [address] * (ABNORMAL) ELECTROLYTE PANEL (NA, K, CL, CO2, ANION GAP) (10/15/2024 5:57 AM PDT) Pathologist [facility] SODIUM 133(L) 135 - 145 mEq/L [facility] POTASSIUM 3.0(L) 3.5 - 5.0 mEq/L [facility] CHLORIDE 102 101 - 111 mEq/L [facility] CO2 21 21 - 31 mEq/L [facility] ANION GAP (NA - (CL + CO2)) 10 3 - 11 mEq/L [facility] BLOOD / Unknown 10/15/2024 5 :57 AM PDT Catalino Peralta) Rl Quiroz SERUM CHEMISTR Y Performing Organization Address City/[facility] de Phone Number [facility] [address] [place] [address] * (ABNORMAL) CBC W AUTOMATED DIFFERENTIAL (10/15/2024 5:57 AM PDT) WBC'S AUTO 9.7 4.0 - 11.0 x1000/mcL [facility] RBC, AUTO 3.82 3.70 - 5.20 Mill/mcL [facility] HGB 10.9(L) 11.5 - 16.0 g/dL [facility] HCT, AUTO 32.1(L) 35.0 - 47.0 % [facility] MCV 84.0 81.0 - 99.0 fL [facility] MCH 28.5 25.0 - 35.0 pg/cell [facility] MCHC 34.0 30.0 - 35.0 g/dL [facility] RDW, BLOOD 13.8 11.5 - 16.0 % [facility] PLATELETS, AUTOMATED COUNT 270 130 - 400 x1000/mcL [facility] BLOOD / Unknown 10/15/2024 5 :57 AM PDT Narrative [facility] - 10/15/2024 6:23 AM PDT Other providers have received this result due to duplicate orders for this test. You may have ordered this exact test or one of its components. Thus, coordination of care is necessary. Click on the Order Details hyperlink for indication of all providers who have received notification of this result. Catalino Peralta) Rl Quiroz HEMATOLOGY Performing Organization Address [facility] Co de Phone Number [facility] [address] [place] [address] * (ABNORMAL) HEPARIN THERAPY, APTT (10/14/2024 10:54 PM PDT) APTT 46(L) 68 - 105 Sec [facility] BLOOD / Unknown 10/14/2024 1 0:54 PM PDT Shante (Pharm.D) To PHARM.D. COAGULATIO N Performing Organization Address [facility] Phone Number [facility] [address] [place] [address] * (ABNORMAL) UNFRACTIONATED HEPARIN, ANTI FACTOR XA (10/14/2024 10:54 PM PDT) HEPARIN, UNFRACTIONATED <0.10(L) 0.30 - 0.70 IU/mL [facility] BLOOD / Unknown 10/14/2024 1 0:54 PM PDT Shante (Pharm.D) To PHARM.D. COAGULATIO N Performing Organization Address [facility] Co de Phone Number [facility] [address] [place] [address] * BACTERIAL GI PANEL (SALMONELLA, SHIGELLA/EIEC, CAMPYLOBACTER, SHIGA TOXIN DNA), STOOL, MULTIPLEX PCR (10/14/2024 10:38 PM PDT) Pathologist [facility] SALMONELLA SPECIES DNA, STOOL, QL, PCR Not Detected Not Detected [facility], [facility] SHIGELLA SP+EIEC DNA, STOOL, QL, PCR Not Detected Not Detected [facility], [facility] CAMPYLOBACTER COLI/JEJUNI DNA, STOOL, QL, PCR Not Detected Not Detected [facility] SHIGA TOXIN GENES, PCR Not Detected Not Detected [facility] , [facility] Comment: A Not Detected result may occur if the target nucleic acid concentration is below the limit of detection. The DNA test does not distinguish between Shigella species and Enteroinvasive E. coli (EIEC). Shiga toxin can be produced by Enterohemorrhagic E. coli (EHEC), Shigella dysenteriae, and rarely, other Enterobacteriaceae. If SHIGA TOXIN GENES is Detected but SHIGELLA SP+EIEC DNA is Not Detected: most consistent with EHEC (toxin-related). Antibiotics should be avoided because treatment may increase the risk of developing hemolytic uremic syndrome. If SHIGELLA SP+EIEC DNA is Detected but SHIGA TOXIN GENES is Not Detected: most consistent with Shigella or EIEC infection even if culture is negative. If symptomatic, consider treatment with antibiotics. If SHIGELLA SP+EIEC DNA is Detected and SHIGA TOXIN GENES is Detected: most consistent with Shigella dysenteriae. If symptomatic, consider treatment with antibiotics. A reflex stool culture for susceptibility testing will be performed for PCR positive (a) Salmonella if patient is <4 years old, or >= 51 years old, and (b) Shigella. See culture report. STOOL 10/14/2024 10:3 8 PM PDT Catalino Peralta) Rl Quiroz MICROBIOLOGY [facility] [address] [place] [address] * (ABNORMAL) INR (10/14/2024 4:14 PM PDT) Pathologist [facility] PT INR 2.0(H) 0.8 - 1.2 [facility] BLOOD / Unknown 10/14/2024 4 :14 PM PDT Orlin Bhatt) Clover Witt COAGULATION Performing Organization Address [facility] Co de Phone Number [facility] [address] [place] [address] * BLOOD CULTURE (10/14/2024 4:14 PM PDT) FINAL RESULT No growth at 5 days. [facility] PATHOLOGY [facility] BLOOD / Unknown 10/14/2024 4 :14 PM PDT Catalino Peralta) Rl Quiroz MICROBIOLOGY Performing Organization Address [facility] Co de Phone Number [facility], [facility] [address] [place] [address] * (ABNORMAL) TROPONIN I, HIGH SENSITIVITY (10/14/2024 3:55 PM PDT) TROPONIN I, HIGH SENSITIVITY 24(H) <=12 pg/mL [facility] Comment: Symptom hsTnI (pg/mL) Delta hsTnl Interpretation Duration M F (pg/mL) >=18y/o M <18y/o Any >100 >75 Myocardial Injury >3 hours <=20 <=12 No Myocardial Injury 21-100 13-75 Rpt TnI in 2 hrs.Calc Delta <=5 No VT 6-10 Indeterminate >10 Acute Myocardial Injury *Troponin values may be elevated in clinical conditions other than acute coronary syndrome. BLOOD / Unknown 10/14/2024 3 :55 PM PDT Catalino Peralta) Rl Quiroz IMMUNOLOGY Performing Organization Address City/[facility]/ZIP Co de Phone Number [facility] [address] [place] [address] * BLOOD CULTURE (10/14/2024 3:55 PM PDT) FINAL RESULT No growth at 5 days. [facility], [facility]ICAL PATHOLOGY [facility] BLOOD / Unknown 10/14/2024 3 :55 PM PDT Catalino Peralta) Rl Quiroz MICROBIOLOGY Performing Organization Address [facility] de Phone Number [facility], [facility]INICAL PATHOLOGY [facility] [address] [place] [address] * CT ABD AND PELVIS NO CONTRAST (10/14/2024 3:26 PM PDT) Anatomical Region Laterality Modality Pelvis, Abdomen Computed Tomogra phy 10/14/2024 3:46 PM PDT Impressions 10/14/2024 3:46 PM PDT Non-IV contrast exam. Mild wall thickening of the colon most pronounced involving the transverse and descending colon. This may be related to underdistention versus mild colitis. No bowel obstruction or free air. Colonic diverticulosis. Mild nonspecific bibasilar lung opacities which may reflect atelectasis versus infiltrates with small right and trace left layering pleural effusions. Arterial atherosclerosis. This report electronically signed by CATALINO GRIMALDO on 10/14/2024 3:46 PM Narrative 10/14/2024 3:46 PM PDT CLINICAL HISTORY: Reason: generalized abdominal pain, history of CKD If after hours, there needs to be MD to MD contact for scheduling. COMPARISON: No previous study available. TECHNIQUE: Study performed per protocol. CT Dose: As required by [place] law, the CTDIvol and DLP radiation doses associated with this CT study are listed below. This represents the estimated dose to a standard lucite phantom resulting from the technique used for this study, but is not the dose to this specific patient. Type / CTDIvol / DLP / Phantom Abdomen / 0.07 / 3.51 / B Abdomen / 0.07 / 3.51 / B Abdomen / 6.86 / 368.71 / B Total Exam DLP: 375.73 CTDIvol = mGy DLP = mGy-cm Phantom: B=Body32, H=Head16 FINDINGS: Mild nonspecific dependent bibasilar opacities with small right and trace left layering pleural effusions. Coronary artery calcifications. Dual-chamber cardiac pacer partially noted. Liver, spleen, gallbladder, pancreas and adrenal glands have a normal noncontrast appearance. No urinary tract calculus or hydronephrosis. Mild bilateral perinephric stranding. Atherosclerosis of the abdominal aorta without aneurysm. Small hiatal hernia. No gastrointestinal obstruction or free air. Mild scattered wall thickening of the colon most pronounced involving the transverse and ascending colon which is under distended. A few scattered fluid-filled colonic loops. Colonic diverticulosis. No CT evidence of acute appendicitis. Urinary bladder unremarkable. Streak artifacts from patient's metallic left hip arthroplasty degrades imaging through the pelvis. Scoliosis and degenerative changes of the lumbar spine. Procedure Note Catalino Grimaldo M.D., Richie - 10/14/2024 CLINICAL HISTORY: Reason: generalized abdominal pain, history of CKD Ifafter hours, there needs to be MD to MD contact for scheduling. COMPARISON: No previous study available. TECHNIQUE: Study performed per protocol. CT Dose: As required by [place] law, the CTDIvol and DLP radiation dosesassociated with this CT study are listed below. This represents theestimated dose to a standard lucite phantom resulting from the techniqueused for this study, but is not the dose to this specific patient. Type / CTDIvol / DLP / Phantom Abdomen / 0.07 / 3.51 / B Abdomen / 0.07 / 3.51 / B Abdomen / 6.86 / 368.71 / B Total Exam DLP: 375.73 CTDIvol = mGy DLP = mGy-cm Phantom: B=Body32, H=Head16 FINDINGS: Mild nonspecific dependent bibasilar opacities with small right and traceleft layering pleural effusions. Coronary artery calcifications.Dual-chamber cardiac pacer partially noted. Liver, spleen, gallbladder, pancreas and adrenal glands have a normalnoncontrast appearance. No urinary tract calculus or hydronephrosis. Mildbilateral perinephric stranding. Atherosclerosis of the abdominal aortawithout aneurysm. Small hiatal hernia. No gastrointestinal obstruction orfree air. Mild scattered wall thickening of the colon most pronouncedinvolving the transverse and ascending colon which is under distended. Afew scattered fluid-filled colonic loops. Colonic diverticulosis. No CTevidence of acute appendicitis. Urinary bladder unremarkable. Streakartifacts from patient's metallic left hip arthroplasty degrades imagingthrough the pelvis. Scoliosis and degenerative changes of the lumbarspine. IMPRESSION Non-IV contrast exam. Mild wall thickening of the colon most pronounced involving the transverseand descending colon. This may be related to underdistention versus mildcolitis. No bowel obstruction or free air. Colonic diverticulosis. Mild nonspecific bibasilar lung opacities which may reflect atelectasisversus infiltrates with small right and trace left layering pleuraleffusions. Arterial atherosclerosis. This report electronically signed by CATALINO GRIMALDO on 10/14/2024 3:46 PM Fariha Weiner (Richie) Jaimee Quiroz CT * TRANSTHORACIC ECHO (TTE) LIMITED, CV (10/14/2024 3:23 PM PDT) Narrative Sanjiv Valente M.D., M.D. - 10/14/2024 3:59 PM PDT Left Ventricle: Normal systolic function with an estimated EF of 55 - 60%. No regional wall motion abnormalities observed. IVC/SVC: Normal (<2.1 cm) IVC size with greater than 50% collapse, estimated right atrial pressure of 3 mmHg (normal). Limited study Atrial fibrillation with RVR Left Ventricle Normal systolic function with an estimated EF of 55 - 60%. No regional wall motion abnormalities observed. IVC/SVC Normal (<2.1 cm) IVC size with greater than 50% collapse, estimated right atrial pressure of 3 mmHg (normal). Study Details A limited echo was performed using 2D. Limited echo performed for evaluation of LV function. Study quality was adequate. Technically difficult due to patient's heart rhythm. Catalino Peralta) Rl Quiroz CV ECHO PROCED URES * PHOSPHATE (10/14/2024 2:04 PM PDT) PHOSPHORUS 2.9 2.7 - 4.5 mg/dL [facility] BLOOD / Unknown 10/14/2024 2 :04 PM PDT Fariha Peralta) Jaimee Quiroz SERUM CHEM ISTRY Performing Organization Address City/[facility] Co de Phone Number [facility] [address] [place] [address] * MAGNESIUM (10/14/2024 2:04 PM PDT) MAGNESIUM 2.5 1.7 - 2.8 mg/dL [facility] Comment: Magnesium results between 4.9 mg/dL and 9.7 mg/dL are not considered critical for patients receiving MgSO4 therapy. BLOOD / Unknown 10/14/2024 2 :04 PM PDT Fariha Peralta) Jaimee Quiroz SERUM CHEM ISTRY Performing Organization Address [facility] Co de Phone Number [facility] [address] [place] [address] * (ABNORMAL) CALCIUM (10/14/2024 2:04 PM PDT) CALCIUM 8.0(L) 8.5 - 10.7 mg/dL [facility] BLOOD / Unknown 10/14/2024 2 :04 PM PDT Fariha Peralta) Jaimee Quiroz SERUM CHEM ISTRY Performing Organization Address City/[facility] Co de Phone Number [facility] [address] [place] [address] * LACTIC ACID, BLOOD (10/14/2024 2:04 PM PDT) LACTATE, SER/PLAS 1.0 0.5 - 1.9 mmol/L [facility] BLOOD / Unknown 10/14/2024 2 :04 PM PDT Narrative [facility] - 10/14/2024 2:23 PM PDT Fariha Hermosillo M.D. SERUM CHEM ISTRY [facility] [address] [place] [address] * XR CHEST 1 VIEW (10/14/2024 11:51 AM PDT) Anatomical Region Laterality Modality Chest Other 10/14/2024 11:5 5 AM PDT Impressions 10/14/2024 11:55 AM PDT FINDINGS/IMPRESSION: No interval change. There is unchanged left chest wall pacemaker. The lungs remain clear. There is unchanged slightly elevated right hemidiaphragm. No pleural effusions are seen. The cardiomediastinal silhouette is normal. There is unchanged arteriosclerosis of the aortic knob. The report is intended as communication between the interpreting radiologist and the ordering physician. If you've questions how this report integrates with your overall care, please follow up with the ordering physician. This report electronically signed by Edilson Beth on 10/14/2024 11:55 AM Narrative 10/14/2024 11:55 AM PDT CLINICAL HISTORY: Reason: chest pain / abdomen pain COMPARISON: March 11, 2024 Procedure Note Edilson Beth M.D., M.D. - 10/14/2024 CLINICAL HISTORY: Reason: chest pain / abdomen pain COMPARISON: March 11, 2024 IMPRESSION FINDINGS/IMPRESSION: No interval change. There is unchanged left chest wall pacemaker. Thelungs remain clear. There is unchanged slightly elevated righthemidiaphragm. No pleural effusions are seen. The cardiomediastinalsilhouette is normal. There is unchanged arteriosclerosis of the aortic knob. The report is intended as communication between the interpretingradiologist and the ordering physician. If you've questions how thisreport integrates with your overall care, please follow up with theordering physician. This report electronically signed by Edilson Beth on 10/14/2024 11:55 AM Kelly Peralta) Yvan Quiroz GENERAL IMAGING * (ABNORMAL) APTT (10/14/2024 11:06 AM PDT) APTT 40(H) 25 - 37 Sec [facility] BLOOD / Unknown 10/14/2024 1 1:06 AM PDT Shante (Pharm.D) Derrek HARRIS COAGULATIO N Performing Organization Address [facility]/ZIP Co de Phone Number [facility] [address] [place] [address] * (ABNORMAL) INR (10/14/2024 11:06 AM PDT) PT INR 1.9(H) 0.8 - 1.2 [facility] BLOOD / Unknown 10/14/2024 1 1:06 AM PDT Catalino Peralta) Rl Quiroz COAGULATION Performing Organization Address City/[facility] Co de Phone Number [facility] [address] [place] [address] * (ABNORMAL) WBC AUTO DIFF (10/14/2024 11:06 AM PDT) NEUTROPHILS %, AUTOMATED COUNT 83.7 [facility] LYMPHOCYTES %, AUTOMATED COUNT 8.5 [facility] MONOS %, AUTO 6.3 [facility] EOSINOPHILS %, AUTOMATED COUNT 0.2 [facility] BASOPHILS %, AUTOMATED COUNT 0.6 [facility] IMMATURE GRANULOCYTES %, AUTOMATED COUNT 1 [facility] RBC NUCLEATED AUTO COUNT, BLD 0 <=0 % [facility] NEUTROPHILS, ABSOLUTE, AUTOMATED COUNT 11.88(H) 1.80 - 7.70 x1000/mcL [facility] LYMPHOCYTES, AUTOMATED COUNT 1.21 1.00 - 3.60 x1000/mcL [facility] MONOCYTES, AUTOMATED COUNT 0.89 0.10 - 1.00 x1000/mcL [facility] EOSINOPHILS, AUTOMATED COUNT 0.03 0.00 - 0.70 x1000/mcL [facility] BASOPHILS, AUTOMATED COUNT 0.08 0.00 - 0.20 x1000/mcL [facility] IMMATURE GRANULOCYTES, AUTOMATED COUNT 0.10(H) 0.01 - 0.09 x1000/mcL [facility] BLOOD / Unknown 10/14/2024 1 1:06 AM PDT Narrative [facility] - 10/14/2024 12:30 PM PDT Kelly Peralta) Yvan uQiroz HEMATOLOGY Performing Organization Address [facility] Co de Phone Number [facility] [address] [place] [address] * (ABNORMAL) B-TYPE NATRIURETIC PEPTIDE (BNP) (10/14/2024 11:06 AM PDT) B TYPE NATRIURETIC PEPTIDE 1,392(H) <=99 pg/mL [facility] Comment: Less than 100: Not likely heart failure 100-500: Indeterminate range Greater than 500: Heart failure likely For Indeterminate results, one must consider the following: Baseline BNP value elevated due to stable underlying dysfunction; right ventricular failure present from COR Pulmonale; Acute pulmonary embolism or renal failure. BLOOD / Unknown 10/14/2024 1 1:06 AM PDT Fariha Hermosillo M.D. SERUM CHEM ISTRY Performing Organization Address [facility] Co de Phone Number [facility] [address] [place] [address] * (ABNORMAL) LACTIC ACID W REFLEX TO REPEAT (10/14/2024 11:06 AM PDT) LACTATE, SER/PLAS 2.3(H) 0.5 - 1.9 mmol/L [facility] BLOOD / Unknown 10/14/2024 1 1:06 AM PDT Fariha Hermosillo M.D. SERUM CHEM ISTRY Performing Organization Address [facility] Co de Phone Number [facility] [address] [place] [address] * (ABNORMAL) TROPONIN I, HIGH SENSITIVITY (10/14/2024 11:06 AM PDT) TROPONIN I, HIGH SENSITIVITY 21(H) <=12 pg/mL [facility] Comment: Symptom hsTnI (pg/mL) Delta hsTnl Interpretation Duration M F (pg/mL) >=18y/o M <18y/o Any >100 >75 Myocardial Injury >3 hours <=20 <=12 No Myocardial Injury 21-100 13-75 Rpt TnI in 2 hrs.Calc Delta <=5 No VT 6-10 Indeterminate >10 Acute Myocardial Injury *Troponin values may be elevated in clinical conditions other than acute coronary syndrome. BLOOD / Unknown 10/14/2024 1 1:06 AM PDT Kelly Peralta) Yvan Quiroz IMMUNOLOGY Performing Organization Address [facility] Co de Phone Number [facility] [address] [place] [address] * ALKALINE PHOSPHATASE (10/14/2024 11:06 AM PDT) ALKALINE PHOSPHATASE 62 <=125 U/L [facility] BLOOD / Unknown 10/14/2024 1 1:06 AM PDT Kelly Peralta) Yvan Quiroz SERUM CHEMISTRY Performing Organization Address City/[facility]/ZIP Co de Phone Number [facility] [address] [place] [address] * (ABNORMAL) BILIRUBIN, DIRECT (10/14/2024 11:06 AM PDT) BILIRUBIN, DIRECT 0.4(H) <=0.2 mg/dL [facility] BLOOD / Unknown 10/14/2024 1 1:06 AM PDT Kelly Perlata) Yvan Quiroz SERUM CHEMISTRY Performing Organization Address City/[facility]/ZIP Co de Phone Number [facility] [address] [place] [address] * (ABNORMAL) BILIRUBIN, TOTAL (10/14/2024 11:06 AM PDT) BILIRUBIN, TOTAL 1.3(H) <=1.0 mg/dL [facility] BLOOD / Unknown 10/14/2024 1 1:06 AM PDT Kelly Peralta) Yvan Quiroz SERUM CHEMISTRY Performing Organization Address City/[facility]/ZIP Co de Phone Number [facility] [address] [place] [address] * AST (10/14/2024 11:06 AM PDT) AST 20 <=30 U/L [facility] BLOOD / Unknown 10/14/2024 1 1:06 AM PDT Kelly Peralta) Yvan Quiroz SERUM CHEMISTRY Performing Organization Address City/[facility]/ZIP Co de Phone Number [facility] [address] [place] [address] * ALT (10/14/2024 11:06 AM PDT) ALT 15 <=54 U/L [facility] BLOOD / Unknown 10/14/2024 1 1:06 AM PDT Kelly Peralta) Yvan Quiroz SERUM CHEMISTRY Performing Organization Address [facility] Co de Phone Number [facility] [address] [place] [address] * LIPASE (10/14/2024 11:06 AM PDT) LIPASE 30 <=58 U/L [facility] BLOOD / Unknown 10/14/2024 1 1:06 AM PDT Kelly Peralta) Yvan Quiroz SERUM CHEMISTRY Performing Organization Address [facility] de Phone Number [facility] [address] [place] [address] * GLUCOSE (10/14/2024 11:06 AM PDT) GLUCOSE, RANDOM 131 70 - 140 mg/dL [facility] BLOOD / Unknown 10/14/2024 1 1:06 AM PDT Kelly Peralta) Yvan Quiroz SERUM CHEMISTRY Performing Organization Address [facility] de Phone Number [facility] [address] [place] [address] * (ABNORMAL) CREATININE (10/14/2024 11:06 AM PDT) CREATININE 1.25(H) <=1.10 mg/dL [facility] EGFR, CREATININE-BASED FORMULA (CKD-EPI 2020) 44(L) >=60 mL/min/BS A [facility] Comment: GFR estimate is by the CKD-EPI 2020 equation which uses age, sex, and serum [...] p roteinuria as appropriate. BLOOD / Unknown 10/14/2024 1 1:06 AM PDT Kelly Peralta) Yvan Quiroz SERUM CHEMISTRY Performing Organization Address [facility] Co de Phone Number [facility] [phone] [place] [address] * BUN (10/14/2024 11:06 AM PDT) BUN 16 <=18 mg/dL [facility] BLOOD / Unknown 10/14/2024 1 1:06 AM PDT Kelly Peralta) Yvan Quiroz SERUM CHEMISTRY Performing Organization Address [facility] Co de Phone Number [facility] [address] [place] [address] * (ABNORMAL) ELECTROLYTE PANEL (NA, K, CL, CO2, ANION GAP) (10/14/2024 11:06 AM PDT) SODIUM 131(L) 135 - 145 mEq/L [facility] POTASSIUM 4.0 3.5 - 5.0 mEq/L [facility] CHLORIDE 97(L) 101 - 111 mEq/L [facility] CO2 20(L) 21 - 31 mEq/L [facility] ANION GAP (NA - (CL + CO2)) 14(H) 3 - 11 mEq/L [facility] BLOOD / Unknown 10/14/2024 1 1:06 AM PDT Kelly Peralta) Yvan Quiroz SERUM CHEMISTRY Performing Organization Address [facility] de Phone Number [facility] [address] [place] [address] * (ABNORMAL) CBC W AUTOMATED DIFFERENTIAL (10/14/2024 11:06 AM PDT) WBC'S AUTO 14.2(H) 4.0 - 11.0 x1000/mcL [facility] RBC, AUTO 4.21 3.70 - 5.20 Mill/mcL [facility] HGB 11.8 11.5 - 16.0 g/dL [facility] HCT, AUTO 36.2 35.0 - 47.0 % [facility] MCV 86.0 81.0 - 99.0 fL [facility] MCH 28.0 25.0 - 35.0 pg/cell [facility] MCHC 32.6 30.0 - 35.0 g/dL [facility] RDW, BLOOD 13.9 11.5 - 16.0 % [facility] PLATELETS, AUTOMATED COUNT 327 130 - 400 x1000/mcL [facility] BLOOD / Unknown 10/14/2024 1 1:06 AM PDT Kelly Peralta) Yvan Quiroz HEMATOLOGY Performing Organization Address [facility] de Phone Number [facility] [address] [place] [address] documented in this encounter Visit Diagnoses Diagnosis ATRIAL FIBRILLATION W RAPID VENTRICULAR RESPONSE- Primary ATRIAL FIBRILLATION W RAPID VENTRICULAR RESPONSE VENTRICULAR TACHYCARDIA, PAROXYSMAL GENERALIZED ABDOMINAL PAIN HYPERLIPIDEMIA HTN DIVERTICULOSIS OF COLON ATHEROSCLEROSIS AORTA BILATERAL RENAL ARTERY STENOSIS DIASTOLIC HEART FAILURE, CHRONIC (HFPEF) DIASTOLIC HEART FAILURE, CHRONIC ATRIAL FIBRILLATION, UNSPECIFIED ATRIAL FIBRILLATION ANTICOAGULATION MONITORING, INR 2.0-3.0 HX OF VT, UNSPECIFIED TYPE documented in this encounter Administered Medications Inactive Administered Medications - up to 3 most recent administrations Medication Order MAR Action Action Date Dose Rate Site Acetaminophen Supp 650 mg (TYLENOL) 650 mg (10.1 mg/kg/dose), Rectal, EVERY 4 HOURS NEEDED, Starting on Mon10/14/24 at 1644, Until Mon10/21/24 at 2120, mild pain (1-3), Give rectally if unable to take orals. Do not exceed 4 GM/day from all acetaminophen products Acetaminophen Supp 650 mg (TYLENOL) 650 mg (10.1 mg/kg/dose), Rectal, EVERY 4 HOURS NEEDED, Starting on Mon10/14/24 at 1644, Until Mon10/21/24 at 2120, temp > 38.3C/100.9F, Give rectally if unable to take orals. Do not exceed 4 GM/day from all acetaminophen products. Acetaminophen Tablet 650 mg (TYLENOL) 650 mg (10.1 mg/kg/dose), Oral, EVERY 4 HOURS NEEDED, Starting on Mon10/14/24 at 1644, Until Mon10/21/24 at 2120, mild pain (1-3), Do not exceed 4 GM/day from all acetaminophen products. Given 10/19/2024 2:08 AM PDT 650 mg Acetaminophen Tablet 650 mg (TYLENOL) 650 mg (10.1 mg/kg/dose), Oral, EVERY 4 HOURS NEEDED, Starting on Mon10/14/24 at 1644, Until Mon10/21/24 at 2120, temp > 38.3C/100.9F, Do not exceed 4 GM/day from all acetaminophen products. Amiodarone 150 mg (CORDARONE IV) 150 mg (2.33 mg/kg/dose), intraVENOUS, ONE TIME, 1 dose, On Mon10/14/24 at 1400, Draw up ordered dose, add to D5W 100 mL, and administer IVPB over 10 minutes. Infuse using an in-line filter. Given 10/14/2024 2:29 PM PDT 150 mg Amiodarone in Dextrose 150 mg/100 mL (1.5 mg/mL) IV Premix 150 mg (NEXTERONE) 150 mg (2.46 mg/kg/dose), intraVENOUS, at 600 mL/hr, ONE TIME, 1 dose, On Gauri 10/17/24 at 0930, Infuse using an in-line filter. New Bag 10/17/2024 9:20 AM PDT 150 mg 600 mL/hr Amiodarone in Dextrose 360 mg/200 mL (1.8 mg/mL) IV Premix (NEXTERONE) 1 mg/min (33.3333 mL/hr, rounded to 33.33 mL/hr), intraVENOUS, CONTINUOUS, Starting on Mon10/14/24 at 1400, Until Mon10/14/24 at 1959, Infuse using an in-line filter. New Bag 10/14/2024 2:55 PM PDT 1 mg/min 33.33 mL/hr Amiodarone in Dextrose 360 mg/200 mL (1.8 mg/mL) IV Premix (NEXTERONE) 0.5 mg/min (16.6667 mL/hr, rounded to 16.67 mL/hr), intraVENOUS, CONTINUOUS, Starting on Mon10/14/24 at 2000, Until Mon10/15/24 at 1359, Infuse using an in-line filter. New Bag 10/15/2024 8:51 AM PDT 0.5 mg/min 16.67 mL/hr New Bag 10/14/2024 8:54 PM PDT 0.5 mg/min 16.67 mL/hr New Bag 10/14/2024 8:51 PM PDT 0.5 mg/min 16.67 mL/hr Amiodarone in Dextrose 360 mg/200 mL (1.8 mg/mL) IV Premix (NEXTERONE) 1 mg/min (33.3333 mL/hr, rounded to 33.33 mL/hr), intraVENOUS, CONTINUOUS, Starting on Mon10/17/24 at 1100, Until Mon10/17/24 at 1659, Infuse using an in-line filter. New 10/17/2024 10:53 AM PDT 1 mg/min 33.33 mL/hr Amiodarone in Dextrose 360 mg/200 mL (1.8 mg/mL) IV Premix (NEXTERONE) 0.5 mg/min (16.6667 mL/hr, rounded to 16.67 mL/hr), intraVENOUS, CONTINUOUS, Starting on Mon10/17/24 at 1700, Until Mon10/18/24 at 1059, Infuse using an in-line filter. New Bag 10/18/2024 3:47 AM PDT 0.5 mg/min 16.67 mL/hr New Bag 10/17/2024 5:13 PM PDT 0.5 mg/min 16.67 mL/hr Amiodarone Tab 400 mg (PACERONE) 400 mg (6.39 mg/kg/dose), Oral, 2 TIMES A DAY, 20 doses, First dose (after last modification) on Mon10/18/24 at 1200, Last dose on Mon10/27/24 at 1700, Start medication after amio drip. Given 10/18/2024 12:23 PM PDT 400 mg Amiodarone Tab 400 mg (PACERONE) 400 mg (6.39 mg/kg/dose), Oral, 2 TIMES A DAY, 18 doses, First dose (after last modification) on Mon10/18/24 at 2300, Last dose on Mon10/27/24 at 0900, Start medication after amio drip. Given 10/21/2024 8:16 AM PDT 400 mg Given 10/20/2024 4:42 PM PDT 400 mg Given 10/20/2024 8:16 AM PDT 400 mg Atorvastatin Tab 10 mg (LIPITOR) 10 mg, Oral, DAILY, First dose on Mon10/14/24 at 1530, Until Discontinued, No grapefruit or grapefruit juice. Given 10/21/2024 8:16 AM PDT 10 mg Given 10/20/2024 8:16 AM PDT 10 mg Given 10/19/2024 8:07 AM PDT 10 mg Calcium Gluconate in NaCl 1 gram/100 mL IV Premix 1 g, intraVENOUS, at 100 mL/hr, ONE TIME, 1 dose, On Mon10/14/24 at 2030 New Bag 10/14/2024 8:47 PM PDT 1 g 100 mL/hr Carvedilol Tab 12.5 mg (COREG) 12.5 mg (0.195 mg/kg/dose), Oral, 2 TIMES A DAY (INPT RN CHECK 1ST DOSE), First dose (after last modification) on Mon10/20/24 at 1700, Until Discontinued, Give with food. Hold if SBP less than 100 or HR less than 65 Given 10/21/2024 8:16 AM PDT 12.5 mg Given 10/20/2024 4:42 PM PDT 12.5 mg Carvedilol Tab 25 mg (COREG) 25 mg (0.41 mg/kg/dose), Oral, 2 TIMES A DAY, First dose on Mon10/17/24 at 1300, Until Discontinued, Give with food. Hold if SBP less than 100 or HR less than 65 Given 10/17/2024 1:02 PM PDT 25 mg Carvedilol Tab 6.25 mg (COREG) 6.25 mg (0.0998 mg/kg/dose), Oral, 2 TIMES A DAY (INPT RN CHECK 1ST DOSE), First dose on Mon10/18/24 at 1130, Until Discontinued, Give with food. Hold if SBP less than 100 or HR less than 65 Given 10/20/2024 8:16 AM PDT 6.25 mg Given 10/19/2024 5:20 PM PDT 6.25 mg Given 10/19/2024 8:06 AM PDT 6.25 mg cefTRIAXone Adapter Vial 2 g (ROCEPHIN) 2 g, intraVENOUS, at 110 mL/hr, EVERY 24 HOURS (INPT RN CHECK 1ST DOSE), First dose on Mon10/14/24 at 1630, Until Discontinued, Incompatible with Lactated Ringers or other IV calcium-containing products. Flush infusion line before and after administration. Attach vial to NS 50 mL bag (Volume with overfill = 55 mL) using vial adapter system. Activate and dilute before administration. Administer immediately after activation. Incompatible with Lactated Ringers or other IV calcium-containing products. Flush infusion line before and after administration. New Bag 10/20/2024 4:45 PM PDT 2 g 110 m L/hr New Bag 10/19/2024 5:23 PM PDT 2 g 110 mL/hr New Bag 10/18/2024 4:51 PM PDT 2 g 110 mL/hr cloNIDine 0.1 mg/24 hr 1 Patch (CATAPRES-TTS 1) 1 Patch, Transdermal, EVERY 7 DAYS, First dose on Mon10/16/24 at 0000, Until Discontinued, Remove existing patch of this medication prior to applying a new patch. Do Not Cut Patch Patch Applied 10/16/2024 5:23 AM PDT 1 Patch Left Arm cloNIDine 0.1 mg/24 hr 1 Patch (CATAPRES-TTS 1) 1 Patch, Transdermal, EVERY 7 DAYS, First dose on Mon10/19/24 at 1000, Until Discontinued, Remove existing patch of this medication prior to applying a new patch. Do Not Cut Patch Patch Applied 10/19/2024 10:37 AM PDT 1 Patch Right Arm COSOPT 22.3-6.8 mg/mL Eye Soln 1 Drop (Dorzolamide-Timolol) 1 Drop, Both eyes, 2 TIMES A DAY, First dose on Mon10/14/24 at 1700, Until Discontinued, Equivalent to dorzolamide 22.3 mg/mL and timolol 6.8 mg/mL. Given 10/21/2024 8:17 AM PDT 1 Drop Given 10/20/2024 6:37 PM PDT 1 Drop Given 10/20/2024 8:26 AM PDT 1 Drop dilTIAZem 24hr ER Cap 120 mg (CARDIZEM CD) 120 mg (1.8 mg/kg/dose), Oral, 2 TIMES A DAY, First dose on Mon10/15/24 at 1700, Until Discontinued, Do not chew or crush Given 10/17/2024 8:07 AM PDT 120 mg Given 10/16/2024 5:41 PM PDT 120 mg Given 10/16/2024 9:04 AM PDT 120 mg dilTIAZem 24hr ER Cap 120 mg (CARDIZEM CD) 120 mg (1.92 mg/kg/dose), Oral, 2 TIMES A DAY, First dose (after last modification) on Mon10/18/24 at 1130, Until Discontinued, Hold if systolic less than 90 or HR less than 70 Do not chew or crush Given 10/21/2024 8:15 AM PDT 120 mg Given 10/20/2024 4:42 PM PDT 120 mg Given 10/20/2024 8:16 AM PDT 120 mg dilTIAZem in D5W 125 mg/125 mL (1 mg/mL) IV Premix (CARDIZEM) 0-15 mg/hr (0-15 mL/hr), intraVENOUS, CONTINUOUS, Starting on Mon10/14/24 at 1230, Until Mon10/14/24 at 1412, Start at 5 MG/HR. Titrate by 5 MG/HR as often as every 30 minutes to HR<115. Maximum dose is the upper dose in the ordered range. Hold for HR equal to or less than 60. Hold for systolic BP less than 90. Rate Change Verify 10/14/2024 1:46 PM PDT 15 mg/hr 15 mL/hr New Bag 10/14/2024 1:07 PM PDT 10 mg/hr 10 mL/hr New Bag 10/14/2024 12:27 PM PDT 5 mg/hr 5 mL/hr dilTIAZem Inj 10 mg (CARDIZEM) 10 mg (0.155 mg/kg/dose), intraVENOUS, ONE TIME, 1 dose, On Mon10/14/24 at 1130 Given 10/14/2024 11:24 AM PDT 10 mg dilTIAZem Inj 16 mg (CARDIZEM) 16 mg (rounded from 16.1 mg = 0.25 mg/kg/dose 64.4 kg), intraVENOUS, ONE TIME, 1 dose, On Mon10/14/24 at 1200 Given 10/14/2024 11:52 AM PDT 16 mg dilTIAZem Inj 16 mg (CARDIZEM) 16 mg (0.262 mg/kg/dose), intraVENOUS, ONE TIME, 1 dose, On Mon10/17/24 at 0900 Given 10/17/2024 8:41 AM PDT 16 mg dilTIAZem Inj 16 mg (CARDIZEM) 16 mg (0.262 mg/kg/dose), intraVENOUS, ONE TIME, 1 dose, On Mon10/17/24 at 0900 Given 10/17/2024 8:54 AM PDT 16 mg dilTIAZem Tab 30 mg (CARDIZEM) 30 mg (0.45 mg/kg/dose), Oral, 3 TIMES A DAY NEEDED, Starting on Mon10/15/24 at 1603, Until Mon10/17/24 at 1707, for HR >120 Given 10/17/2024 8:19 AM PDT 30 mg dilTIAZem Tab 30 mg (CARDIZEM) 30 mg (0.492 mg/kg/dose), Oral, 3 TIMES A DAY NEEDED, Starting on Mon10/17/24 at 1725, Until Mon10/21/24 at 2121, for HR >120, Hold if systolic less than 90 or HR less than 75 Heparin (Porcine) in D5W 25,000 unit/250 mL(100 unit/mL) IV Premix 700 Units/hr (7 mL/hr), intraVENOUS, CONTINUOUS, Starting on Mon10/14/24 at 1630, Until Mon10/15/24 at 1031, *DOUBLE CHECK REQUIRED* Do not give if patient on enoxaparin or other low molecular weight heparin. Caution in patients with epidural, spinal or lumbar puncture. HAMP Rate Change Verify 10/15/2024 1:55 AM PDT 700 Units/hr 7 mL/hr New Bag 10/14/2024 4:59 PM PDT 500 Units/hr 5 mL/hr Heparin Porcine Inj 5,000 Units 5,000 Units, Subcutaneous, EVERY 12 HOURS, First dose on Mon10/16/24 at 0900, Until Discontinued, Do not give if patient on enoxaparin or other low molecular weight heparin. Caution in patients with epidural, spinal or lumbar puncture. Start when INR < 2.0 Given 10/16/2024 9:05 AM PDT 5,000 Units Abdominal RLQ (Right Lower Quadrant) Tissue hydrALAZINE Inj 10 mg (APRESOLINE) 10 mg (0.15 mg/kg/dose), intraVENOUS, EVERY 6 HOURS NEEDED, Starting on Mon10/16/24 at 1311, Until Mon10/21/24 at 0836, see admin inst., SBP >160 Given 10/21/2024 4:10 AM PDT 10 mg Given 10/19/2024 2:08 AM PDT 10 mg Given 10/18/2024 12:31 PM PDT 10 mg Lactobacillus Rhamnosus GG 10 billion cell 1 capsule (CULTURELLE) 1 capsule, Oral, DAILY, First dose on Mon10/20/24 at 1600, Until Discontinued, Open capsule and place in fluid or food of choice if patient unable to swallow capsule. Given 10/21/2024 8:16 AM PDT 1 capsule Given 10/20/2024 4:42 PM PDT 1 capsule Latanoprost 0.005 % Eye Soln 1 Drop (XALATAN) 1 Drop, Both eyes, EVERY BEDTIME, First dose on Mon10/14/24 at 2200, Until Discontinued Given 10/20/2024 8:12 PM PDT 1 Drop Given 10/19/2024 9:08 PM PDT 1 Drop Given 10/18/2024 10:02 PM PDT 1 Drop Lisinopril Tab 10 mg (PRINIVIL/ZESTRIL) 10 mg, Oral, DAILY, First dose (after last modification) on Mon10/20/24 at 0900, Until Discontinued Given 10/20/2024 8:16 AM PDT 10 mg Lisinopril Tab 5 mg (PRINIVIL/ZESTRIL) 5 mg, Oral, DAILY, First dose on Mon10/16/24 at 0000, Until Discontinued Given 10/19/2024 8:07 AM PDT 5 mg Given 10/18/2024 8:57 AM PDT 5 mg Given 10/16/2024 9:04 AM PDT 5 mg Magnesium Sulfate 2 gram/50 mL (4 %) IV Premix 2 g, intraVENOUS, at 50 mL/hr, ONE TIME, 1 dose, On Mon10/14/24 at 1230 New 10/14/2024 12:27 PM PDT 2 g 50 mL/hr Magnesium Sulfate 2 gram/50 mL (4 %) IV Premix 2 g, intraVENOUS, at 50 mL/hr, ONE TIME, 1 dose, On Gauri 10/17/24 at 0930 New 10/17/2024 9:30 AM PDT 2 g 50 mL/hr Magnesium Sulfate 4 gram/100 mL (4 %) IV Premix 4 g, intraVENOUS, at 33.33 mL/hr, ONE TIME, 1 dose, On Mon10/20/24 at 0830 New 10/20/2024 8:26 AM PDT 4 g 33.33 mL/hr Metoclopramide Inj 5 mg (REGLAN) 5 mg (0.078 mg/kg/dose), intraVENOUS, EVERY 6 HOURS NEEDED, Starting on 10/19/24 at 1307, Until Mon10/21/24 at 2121, nausea/vomiting, nausea, vomiting, 2nd line therapy. Start if 1st line therapy medication is ineffective within stated time parameter. Call physician if second-line therapy is ineffective. If 2nd line therapy is effective, start with 2nd line therapy for subsequent episodes of nausea/vomiting. Given 10/20/2024 8:53 AM PDT 5 mg metroNIDAZOLE in NaCl IV Premix 500 mg (FLAGYL) 500 mg (7.99 mg/kg/dose), intraVENOUS, at 100 mL/hr, EVERY 8 HOURS (INPT RN CHECK 1ST DOSE), First dose on Mon10/18/24 at 1430, Until Discontinued, No alcohol or alcohol containing medication. New 10/20/2024 6:08 AM PDT 500 mg 100 mL/hr New 10/19/2024 9:08 PM PDT 500 mg 100 mL/hr New 10/19/2024 2:03 PM PDT 500 mg 100 mL/hr metroNIDAZOLE Tab 500 mg (FLAGYL) 500 mg (7.81 mg/kg/dose), Oral, EVERY 8 HOURS (INPT RN CHECK 1ST DOSE), First dose on Mon10/14/24 at 1630, Until Discontinued, Best with food. No alcohol and alcohol-containing medication. Given 10/18/2024 8:57 AM PDT 500 mg Given 10/17/2024 11:58 PM PDT 500 mg Given 10/17/2024 4:28 PM PDT 500 mg Ondansetron (PF) Inj 4 mg (ZOFRAN) 4 mg (0.0621 mg/kg/dose), intraVENOUS, EVERY 6 HOURS NEEDED, Starting on Mon10/14/24 at 1644, Until Mon10/21/24 at 2121, nausea/vomiting, 1st line therapy. If ineffective after 30 minutes, start 2nd line therapy if ordered, otherwise call physician. Given 10/19/2024 10: 37 AM PDT 4 mg Given 10/18/2024 12:36 PM PDT 4 mg Given 10/17/2024 1:37 PM PDT [address] Tablet 40 mg (PROTONIX) 40 mg (0.624 mg/kg/dose), Oral, 2 TIMES A DAY, First dose on Mon10/19/24 at 1530, Until Discontinued, Do not chew or crush Given 10/21/2024 8:15 AM PDT 40 mg Given 10/20/2024 4:42 PM PDT 40 mg Given 10/20/2024 8:16 AM PDT 40 mg Pharmacy Renal Per Protocol 1 Each, Miscell. (Med.Supl.;Non-Drugs), SEE INSTRUCTION, Starting on Mon10/19/24 at 1307, Until Mon10/21/24 at 2121, Do not document medication administration on this protocol order. Potassium Chloride Oral Pack 40 mEq (K-YVON/KLOR-CON) 40 mEq (0.6 mEq/kg/dose), Oral, ONE TIME, 1 dose, On Mon10/15/24 at 0830, Dissolve in water or juice. Dissolve in water or juice. Given 10/15/2024 8:28 AM PDT 40 mEq Potassium Chloride Oral Pack 40 mEq (K-YVON/KLOR-CON) 40 mEq (0.656 mEq/kg/dose), Oral, ONE TIME, 1 dose, On Mon10/17/24 at 1700, Dissolve in water or juice. Dissolve in water or juice. Given 10/17/2024 5:13 PM PDT 40 mEq Potassium Chloride SR Tablet 40 mEq (K-TAB/KLOR-CON) 40 mEq (0.6 mEq/kg/dose), Oral, ONE TIME, 1 dose, On Mon10/16/24 at 1230, Do not chew or crush. Best tolerated with food. Do not chew or crush. Best tolerated with food. Given 10/16/2024 11:49 AM PDT 40 mEq Potassium Chloride SR Tablet 40 mEq (K-TAB/KLOR-CON) 40 mEq (0.624 mEq/kg/dose), Oral, ONE TIME, 1 dose, On Mon10/20/24 at 0830, Do not chew or crush. Best tolerated with food. Given 10/20/2024 8:26 AM PDT 40 mEq Potassium Chloride TBTQ SR Tab 20 mEq (KLOR-CON M20) 20 mEq (0.3 mEq/kg/dose), Oral, ONE TIME, 1 dose, On Mon10/16/24 at 0830, For oral use only. Do not crush, chew, or suck on tablet. Tablet may be swallowed whole or broken in half. The whole tablet may be dissolved in 4 ounces of water: Allow 2 minutes to dissolve, stir for half a minute and give immediately. Add another 2 ounces of water, swirl and give immediately to swallow any tablet remains in the glass. Given 10/16/2024 9:05 AM PDT 20 mEq Psyllium Husk (Aspartame) Powder Pkt 1 Packet (METAMUCIL FIBER SINGLES) 1 Packet, Oral, 2 TIMES A DAY, First dose on Mon10/15/24 at 1400, Until Discontinued, Hold for loose stools. Dissolve in water or juice. Given 10/18/2024 4:49 PM PDT 1 Packet Given 10/16/2024 9:03 AM PDT 1 Packet Given 10/15/2024 4:39 PM PDT 1 Packet ROBITUSSIN DM Oral Syrup 10 mL (Dextromethorphan-guaiFENesin) 10 mL, Oral, EVERY 4 HOURS NEEDED, Starting on Mon10/14/24 at 2146, Until Mon10/21/24 at 2121, cough Given 10/21/2024 4:11 AM PDT 10 mL Given 10/20/2024 8:23 PM PDT 10 mL Given 10/19/2024 11:06 PM PDT 10 mL Sodium Chloride 0.9 % Inj Soln 500 mL, intraVENOUS, ONE TIME, 1 dose, On Mon10/14/24 at 1430 10/14/2024 2:40 PM PDT 500 mL Sodium Chloride 0.9 % Inj Soln 500 mL, intraVENOUS, ONE TIME, 1 dose, On Mon10/14/24 at 1600 New 10/14/2024 4:13 PM PDT 500 mL Sodium Chloride 0.9 % IV Bolus 500 mL, intraVENOUS, at 1,000 mL/hr, ONE TIME, 1 dose, On Mon10/14/24 at 1230 10/14/2024 12:54 PM PDT 500 mL 1000 mL/hr Sodium Chloride 0.9 % IV Bolus 500 mL, intraVENOUS, at 2,000 mL/hr, ONE TIME, 1 dose, On Mon10/17/24 at 1500, Infuse wide open with duration not to exceed the time specified in the order. Measure Vital Signs within 1 hour after fluid bolus completion. 10/17/2024 2:56 PM PDT 500 mL 2000 mL/hr Sodium Chloride 0.9 % with KCl 20 mEq/L IV Premix 75 mL/hr, intraVENOUS, CONTINUOUS, Starting on Mon10/15/24 at 1200, Until Mon10/19/24 at 0822 10/19/2024 5:48 AM PDT 75 mL/hr 75 mL/hr Rate Verify 10/18/2024 6:38 PM PDT 75 mL/hr 75 mL/hr New 10/18/2024 12:53 PM PDT 75 mL/hr 75 mL/hr Sodium Phosphate 10 mmol in D5W 250 mL IVPB 10 mmol (0.156 mmol/kg/dose), intraVENOUS, at 69.58 mL/hr, ONE TIME, 1 dose, On Mon10/21/24 at 0900 New 10/21/2024 9:39 AM PDT 10 mmol 69.58 mL/hr Warfarin Per Protocol 1 Each, Oral, SEE INSTRUCTION, Starting on Mon10/16/24 at 1611, Until Mon10/21/24 at 212, Do not document medication administration on this protocol order. Warfarin Tab 1 mg 1 mg (0.016 mg/kg/dose), Oral, ONE TIME, 1 dose, On Mon10/18/24 at 1800, *HAZARDOUS DRUG, REPRODUCTIVE RISK - HANDLE AND DISPOSE OF PROPERLY* Given 10/18/2024 6:40 PM PDT 1 mg Warfarin Tab 1 mg 1 mg (0.0156 mg/kg/dose), Oral, ONE TIME, 1 dose, On 10/21/24 at 1700, *HAZARDOUS DRUG, REPRODUCTIVE RISK - HANDLE AND DISPOSE OF PROPERLY* Given 10/21/2024 5:02 PM PDT 1 mg Warfarin Tab 2.5 mg 2.5 mg (0.041 mg/kg/dose), Oral, ONE TIME, 1 dose, On Gauri 10/17/24 at 1500, *HAZARDOUS DRUG, REPRODUCTIVE RISK - HANDLE AND DISPOSE OF PROPERLY* Given 10/17/2024 4:28 PM PDT 2.5 mg Warfarin Tab 4 mg 4 mg (0.06 mg/kg/dose), Oral, DAILY (WARFARIN), First dose (after last modification) on Mon10/16/24 at 1800, Until Discontinued, *HAZARDOUS DRUG, REPRODUCTIVE RISK - HANDLE AND DISPOSE OF PROPERLY* Given 10/16/2024 5:42 PM PDT 4 mg documented in this encounter Active and Recently Administered Medications Times are shown in PDT. Scheduled Medication Order 10/19/2024 10/20/2024 10/21/2024 Amiodarone Tab 400 mg (PACERONE) (CANCELED) 400 mg (6.39 mg/kg/dose), Oral, 2 TIMES A DAY, 18 doses, First dose (after last modification) on Mon10/18/24 at 2300, Last dose on Mon10/27/24 at 0900, Start medication after amio drip. 0807 (Given - Provider: Latrice Fontanez RLamarNLamar)1720 (Given - Provider: Latrice Fontanez R.N.) 0816 (Given - Provider: Latrice Fontanez R.N.)1642 (Given - Provider: Prince Molina R.N.) 0816 (Given - Provider: Dominique SantamariaR.N.) Jose, R.N.)1700 (Due) Atorvastatin Tab 10 mg (LIPITOR) (CANCELED) 10 mg, Oral, DAILY, First dose on Mon10/14/24 at 1530, Until Discontinued, No grapefruit or grapefruit juice. 0807 (Given - Provider: Latrice Bear) Viki Fontanez) 0816 (Given - Provider: Latrice Bear) Viki Fontanez) 0816 (Given - Provider: Dominique SantamariaR.NLamar) Jose RLamarN.) Carvedilol Tab 12.5 mg (COREG) (CANCELED) 12.5 mg (0.195 mg/kg/dose), Oral, 2 TIMES A DAY (INPT RN CHECK 1ST DOSE), First dose (after last modification) on Mon10/20/24 at 1700, Until Discontinued, Give with food. Hold if SBP less than 100 or HR less than 65 1642 (Given - Provider: Prince Molina R.N.) 0816 (Given - Provider: Dominique SantamariaR.NLamar) Jose R.NLamar)1700 (Due) Carvedilol Tab 6.25 mg (COREG) (CANCELED) 6.25 mg (0.0998 mg/kg/dose), Oral, 2 TIMES A DAY (INPT RN CHECK 1ST DOSE), First dose on Mon10/18/24 at 1130, Until Discontinued, Give with food. Hold if SBP less than 100 or HR less than 65 0806 (Given - Provider: Latrice Bear) Viki Fontanez)1720 (Given - Provider: Latrice Bear) Viki Fontanez) 0816 (Given - Provider: Latrice Bear) Viki Fontanez) cefTRIAXone Adapter Vial 2 g (ROCEPHIN) (CANCELED) 2 g, intraVENOUS, at 110 mL/hr, EVERY 24 HOURS (INPT RN CHECK 1ST DOSE), First dose on Mon10/14/24 at 1630, Until Discontinued, Incompatible with Lactated Ringers or other IV calcium-containing products. Flush infusion line before and after administration. Attach vial to NS 50 mL bag (Volume with overfill = 55 mL) using vial adapter system. Activate and dilute before administration. Administer immediately after activation. Incompatible with Lactated Ringers or other IV calcium-containing products. Flush infusion line before and after administration. 1723 (New Bag - Provider: Latrice Fontanez R.N.)1753 (Completed - Provider: Latrice Fontanez R.N.) 1645 (New Bag - Provider: Prince Molina R.N.)1715 (Completed - Provider: Celestino Prieto R.N.NLamar) cloNIDine 0.1 mg/24 hr 1 Patch (CATAPRES-TTS 1) (CANCELED) 1 Patch, Transdermal, EVERY 7 DAYS, First dose on Mon10/19/24 at 1000, Until Discontinued, Remove existing patch of this medication prior to applying a new patch. Do Not Cut Patch 1037 (Patch Applied - Provider: Latrice Fontanez R.N.) 1711 (Due: Patch Removed - Provider: Auto Discontinue - Comment: Time automatically adjusted from order being discontinued) COSOPT 22.3-6.8 mg/mL Eye Soln 1 Drop (Dorzolamide-Timolol) (CANCELED) 1 Drop, Both eyes, 2 TIMES A DAY, First dose on Mon10/14/24 at 1700, Until Discontinued, Equivalent to dorzolamide 22.3 mg/mL and timolol 6.8 mg/mL. 1121 (Given - Provider: Latrice Fontanez R.N.)1721 (Given - Provider: Latrice Fontanez R.N.) 0826 (Given - Provider: Latrice Fontanez R.N.)1837 (Given - Provider: Marci Gonsalez R.N.) 0817 (Given - Provider: Dominique SantamariaR.NCelestino CardonaNLamar)1700 (Due) dilTIAZem 24hr ER Cap 120 mg (CARDIZEM CD) (CANCELED) 120 mg (1.92 mg/kg/dose), Oral, 2 TIMES A DAY, First dose (after last modification) on Mon10/18/24 at 1130, Until Discontinued, Hold if systolic less than 90 or HR less than 70 Do not chew or crush 1121 (Given - Provider: Latrice Fnotanez R.N.)1723 (Given - Provider: Latrice Fontanez R.N.) 0816 (Given - Provider: Latrice Fontanez R.N.)1642 (Given - Provider: Prince Molina R.NLamar) 0815 (Given - Provider: Dominique (R.N.) Jose R.N.)1700 (Due) Lactobacillus Rhamnosus GG 10 billion cell 1 capsule (CULTURELLE) (CANCELED) 1 capsule, Oral, DAILY, First dose on Mon10/20/24 at 1600, Until Discontinued, Open capsule and place in fluid or food of choice if patient unable to swallow capsule. 164 (Given - Provider: Prince Molina RLamarNLamar) 0816 (Given - Provider: Dominique SantamariaR.N.) Jose R.N.) Latanoprost 0.005 % Eye Soln 1 Drop (XALATAN) (CANCELED) 1 Drop, Both eyes, EVERY BEDTIME, First dose on Mon10/14/24 at 2200, Until Discontinued 2107 (Given - Provider: Abi Puckett R.N.) 2011 (Given - Provider: Mahi Hernandez RLamarNLamar) Lisinopril Tab 10 mg (PRINIVIL/ZESTRIL) (CANCELED) 10 mg, Oral, DAILY, First dose (after last modification) on Mon10/20/24 at 0900, Until Discontinued 815 (Given - Provider: Latrice Fontanez RLamarNLamar) Lisinopril Tab 5 mg (PRINIVIL/ZESTRIL) (CANCELED) 5 mg, Oral, DAILY, First dose on Mon10/16/24 at 0000, Until Discontinued 08 (Given - Provider: Latrice Fontanez RLamarNLamar) Magnesium Sulfate 4 gram/100 mL (4 %) IV Premix (COMPLETED) 4 g, intraVENOUS, at 33.33 mL/hr, ONE TIME, 1 dose, On Mon10/20/24 at 0830 0826 (New Bag - Provider: Latrice Fontanez R.N.)1126 (Completed - Provider: Marci Gonsalez R.N.) metroNIDAZOLE in NaCl IV Premix 500 mg (FLAGYL) (CANCELED) 500 mg (7.99 mg/kg/dose), intraVENOUS, at 100 mL/hr, EVERY 8 HOURS (INPT RN CHECK 1ST DOSE), First dose on Mon10/18/24 at 1430, Until Discontinued, No alcohol or alcohol containing medication. 0546 (New Bag - Provider: Abi Puckett R.N.)0646 (Due: Completed - Provider: Abi Puckett R.N.)1403 (New Bag - Provider: Latrice Fontanez R.N.)1503 (Completed - Provider: Latrice Fontanez R.N.)2108 (New Bag - Provider: Abi Puckett R.N.)2208 (Completed - Provider: Abi Puckett R.N.) 0608 (New Bag - Provider: Abi Puckett R.N.)0708 (Completed - Provider: Latrice Fontanez R.N.)1400 (Held - Provider: Marci Gonsalez R.N. - Comment: Per patient doctor said only one dose for today.) Pantoprazole TBEC DR Tablet 40 mg (PROTONIX) (CANCELED) 40 mg (0.624 mg/kg/dose), Oral, 2 TIMES A DAY, First dose on 10/19/24 at 1530, Until Discontinued, Do not chew or crush 1530 (Refused - Provider: Latrice Fontanez R.N.) 0816 (Given - Provider: Latrice Fontanez R.N.)1642 (Given - Provider: Prince Molina R.N.) 0815 (Given - Provider: Dominique Garcia R.N.)1700 (Due) Potassium Chloride SR Tablet 40 mEq (K-TAB/KLOR-CON) (COMPLETED) 40 mEq (0.624 mEq/kg/dose), Oral, ONE TIME, 1 dose, On Mon10/20/24 at 0830, Do not chew or crush. Best tolerated with food. 0826 (Given - Provider: Latrice Fontanez R.N.) Sodium Phosphate 10 mmol in D5W 250 mL IVPB (COMPLETED) 10 mmol (0.156 mmol/kg/dose), intraVENOUS, at 69.58 mL/hr, ONE TIME, 1 dose, On Mon10/21/24 at 0900 0939 (New Bag - Provider: Dominique Garcia R.N.)1339 (Completed - Provider: Dominique Garcia R.N.) Warfarin Tab 1 mg (COMPLETED) 1 mg (0.0156 mg/kg/dose), Oral, ONE TIME, 1 dose, On Mon10/21/24 at 1700, *HAZARDOUS DRUG, REPRODUCTIVE RISK - HANDLE AND DISPOSE OF PROPERLY* 1702 (Given - Provider: Dominique Garcia R.N.) Continuous Medication Order 10/19/2024 10/20/2024 10/21/2024 Sodium Chloride 0.9 % with KCl 20 mEq/L IV Premix (CANCELED) 75 mL/hr, intraVENOUS, CONTINUOUS, Starting on Mon10/15/24 at 1200, Until 10/19/24 at 0822 0548 (New Bag - Provider: Abi Puckett R.N.)1340 (Stopped - Provider: Latrice Fontanez R.N.) PRN Medication Order 10/19/2024 10/20/2024 10/21/2024 Acetaminophen Tablet 650 mg (TYLENOL) (CANCELED)(Linked Group 1) 650 mg (10.1 mg/kg/dose), Oral, EVERY 4 HOURS NEEDED, Starting on Mon10/14/24 at 1644, Until Mon10/21/24 at 2121, mild pain (1-3), Do not exceed 4 GM/day from all acetaminophen products. 0208 (Given - Provider: Abi Puckett R.N.) hydrALAZINE Inj 10 mg (APRESOLINE) (CANCELED) 10 mg (0.15 mg/kg/dose), intraVENOUS, EVERY 6 HOURS NEEDED, Starting on Mon10/16/24 at 1311, Until Mon10/21/24 at 0836, see admin inst., SBP >160 0208 (Given - Provider: Abi Puckett R.N.) 0410 (Given - Provider: Mahi Hernandez R.N.) Metoclopramide Inj 5 mg (REGLAN) (CANCELED) 5 mg (0.078 mg/kg/dose), intraVENOUS, EVERY 6 HOURS NEEDED, Starting on Mon10/19/24 at 1307, Until Mon10/21/24 at 2121, nausea/vomiting, nausea, vomiting, 2nd line therapy. Start if 1st line therapy medication is ineffective within stated time parameter. Call physician if second-line therapy is ineffective. If 2nd line therapy is effective, start with 2nd line therapy for subsequent episodes of nausea/vomiting. 0853 (Given - Provider: Latrice Fontanez R.N.) Ondansetron (PF) Inj 4 mg (ZOFRAN) (CANCELED) 4 mg (0.0621 mg/kg/dose), intraVENOUS, EVERY 6 HOURS NEEDED, Starting on Mon10/14/24 at 1644, Until Mon10/21/24 at 2121, nausea/vomiting, 1st line therapy. If ineffective after 30 minutes, start 2nd line therapy if ordered, otherwise call physician. 1037 (Given - Provider: Latrice Fontanez R.N.) ROBITUSSIN DM Oral Syrup 10 mL (Dextromethorphan-guaiFE Nesin) (CANCELED) 10 mL, Oral, EVERY 4 HOURS NEEDED, Starting on Mon10/14/24 at 2146, Until Mon10/21/24 at 212, cough 2306 (Given - Provider: Abi Puckett R.N.) 2022 (Given - Provider: Mahi Hernandez R.N.) 0411 (Given - Provider: Mahi Hernandez R.N.) Linked Groups Order Group 1: Acetaminophen Tablet 650 mg (TYLENOL) (CANCELED)Jump to med 650 mg (10.1 mg/kg/dose), Oral, EVERY 4 HOURS NEEDED, Starting on Mon10/14/24 at 1644, Until Mon10/21/24 at 2120, mild pain (1-3), Do not exceed 4 GM/day from all acetaminophen products. Or Acetaminophen Supp 650 mg (TYLENOL) (CANCELED) 650 mg (10.1 mg/kg/dose), Rectal, EVERY 4 HOURS NEEDED, Starting on Mon10/14/24 at 1644, Until Mon10/21/24 at 2120, mild pain (1-3), Give rectally if unable to take orals. Do not exceed 4 GM/day from all acetaminophen products documented in this encounter Care Teams Inventory Technician Relationship Specialty Start Date End Date Wilmer Ludwig), Dilma. [address] [place] [id number] PCP - General Family Practice 01/10/14 documented as of this encounter
--- OUTSIDE RECORDS SUMMARY | 2024-10-26 12:10 | XMS_ITS | Encounter Summary ---
Author Organization [facility] Address [address] [place] [address] Care Team Providers Care Environmental Protection Economist Name Role Phone Wilmer Ludwig M.D., M.D. Primary Care Prov ider Unavailable Reason for Visit * Reason Comments HOSPITAL FOLLOW UP Encounter Details Date Type Department Care Team (Latest Contact Info) Description 10/26/2024 10:10 AM PDT Telephone Appointment Visit FAMILY PRACTICE [address] [place] [address] Tessy Kerr), MTano. [address] [place] [address] AFTERCARE FOLLOWING HOSPITALIZATION (Primary Dx); [...] I explained that there is available a igqy-sh-qzgt appointment with a provider to render the [...] AM PDT Office Visit CARDIOLOGY [address] [place] [address] Melanie Osuna (N.P.), N.P. [address] [place] [address] documented as of this encounter [...] PDT) CREATININE 0.87 0.57 - 1.11 mg/dL [facility], CLINICAL PATHOLOGY [facility] Comment: Please review results carefully for any changes to reference ranges (indicated by R superscript). Deployment of new chemistry analyzers is occurring across [facility] through 2026. EGFR, CREATININE-BASED FORMULA (CKD-EPI 2020) 67 >=60 mL/min/BSA [facility], CLINICAL PATHOLOGY [facility] Comment: GFR estimate is by the CKD-EPI [...] Unknown 10/29/2024 1 2:10 PM PDT Narrative [facility], [facility] - 10/30/2024 2:29 AM PDT [facility] ACCN: [id number] Tessy Peralta) Usha Quiroz SERUM CH EMISTRY [facility], [facility] [address] [place] [address] * (ABNORMAL) CBC NO DIFF (10/29/2024 12:10 PM PDT) WBC'S AUTO 8.3 4.0 - 11.0 x1000/mcL [facility], [facility] RBC, AUTO 3.75 3.70 - 5.20 Mill/mcL [facility], [facility] HGB 10.6(L) 11.5 - 16.0 g/dL [facility], [facility] HCT, AUTO 32.5(L) 35.0 - 47.0 % [facility], [facility] MCV 86.7 81.0 - 99.0 fL [facility], [facility] MCH 28.3 25.0 - 35.0 pg/cell [facility], [facility] MCHC 32.6 30.0 - 35.0 g/dL [facility], [facility] RDW, BLOOD 14.6 11.5 - 16.0 % [facility], [facility] PLATELETS, AUTOMATED COUNT 482(H) 130 - 400 x1000/mcL [facility] REFERENCE [facility], [facility] BLOOD / Unknown 10/29/2024 1 2:10 PM PDT Narrative [facility], [facility] - 10/30/2024 12:32 AM PDT [facility] ACCN: [id number] Tessy Peralta) Usha Quiroz HEMATOLO GY Performing Organization Address [facility]/ZIP Co de Phone Number [address] [address] * (ABNORMAL) ELECTROLYTE PANEL (NA, K, CL, CO2) (10/29/2024 12:10 PM PDT) SODIUM 137 136 - 145 mEq/L [facility], [facility] POTASSIUM 3.0(L) 3.5 - 5.1 mEq/L [facility], [facility] CHLORIDE 101 98 - 113 mEq/L [facility], [facility] CO2 27 23 - 31 mEq/L [facility], [facility] Comment: Please review results carefully for any changes to reference ranges (indicated by R superscript). Deployment of new chemistry analyzers is occurring across [facility] through 2026. BLOOD / Unknown 10/29/2024 1 2:10 PM PDT Narrative [facility], [facility] - 10/30/2024 2:29 AM PDT [facility] ACCN: [id number] Tessy Peralta) Usha Quiroz SERUM CH EMISTRY Performing Organization Address [facility]/ZIP Co de Phone Number [facility] [id number] [place] [address] documented in this encounter Visit Diagnoses Diagnosis AFTERCARE FOLLOWING HOSPITALIZATION- Primary ANEMIA ATRIAL FIBRILLATION W RAPID VENTRICULAR RESPONSE documented in this encounter Care Teams Environmental Protection Economist Relationship Specialty Start Date End Date Wilmer Ludwig), Dilma. [address] [address] PCP - General Family Practice 01/10/14 documented as of this encounter
--- OUTSIDE RECORDS SUMMARY | 2024-11-06 17:00 | XMS_ITS | Encounter Summary ---
Author Organization [facility] Address [address] [place] [address] Care Team Providers Care Director Mobile Name Role Phone Wilmer Ludwig) Richie Primary Care Prov ider Unavailable Reason for Visit * Reason Comments HOSPITAL FOLLOW UP Encounter Details Date Type Department Care Team (Late st Contact Info) Description 11/06/2024 3:00 PM PDT Office Visit CARDIOLOGY [address] [place] [phone] Melanie Osuna (N.P.), N.P. [address] [place] [address] ATRIAL FIBRILLATION, PAROXYSMAL; HTN; HYPERLIPIDEMIA; [...] PATIENT'S CHIEF COMPLAINT: Hospital Follow Up Primary Personnel And Payroll Technician: Dr Francheska Lares (last seen 06/2023) HISTORY OF PRESENT ILLNESS: Saira Belle is a 79 year old female who presents for post hospital cardiac follow up. From Dr Lares Note 06/2023: -April 2012: Hospitalized for syncope, thought to be due to orthostatic hypotension. -October 2012 ([place]): Chest pain in setting of hypertensive urgency. [...] want to do). -05/23/23: Pacemaker implantation at [facility] by Dr. Jade for tachy-virginia. -06/2023: Last [...] BP 170/99. Peak stress rate pressure product 99662 is submaximal. Inadequate workload achieved. ECG Findings: [...] cm2/m2. 6. Mild degenerative valvular disease. Mild MR/LA, mild to moderate TR/MR. 7. RVSP estimated [...] PAST MEDICAL/SURGICAL HISTORY: -Atrial fibrillation -S/P PPM ([employer]) 05/23/23 for tachy-virginia -Heart failure with preserved ejection fraction -Hypertension -Hyperlipidemia -Prediabetes -Chronic kidney disease, stage 3 -Bilateral renal artery stenosis, followed by Nephrology -Allergic rhinitis -Osteoporosis -Osteoarthritis -Diverticulosis -Hemorrhoids -Glaucoma -S/P hysterectomy -S/P bladder repair -S/P cataract surgery -S/P left hip replacement 04/28/21 ALLERGIES: Allergies Allergen Reactions Demerol [Meperidine Hcl] Meperidine Skin Rash and/or Hives Non-Steroidal Anti-Inflammatory Agents [id number] Heart Failure. Exception to this NSAID intolerance is aspirin 81- 325mg daily and topical or ophthalmic nsaids' [id number] Heart Failure. Exception to this NSAID intolerance [...] oral at discharge. Currently in sinus rhythm. [id number] score 5. -continue diltiazem 120mg BID -continue coreg 12.5mg BID -continue Amiodarone 200mg daily - she does not want to stay on this retirement. She is leaving the state for the next few months, so will continue for now. Wants to revisit in March when she returns to [place]. Discussed lab monitoring with Amio - due in April if she stays on it. -continue warfarin. Discussed switching to Pradaxa and she is agreeable, however, wants to wait until her return in Mar. 2. S/P PPM ([employer]) 05/23/23 for tachy-virginia. -Last interrogated 08/2024 with normal function. - continue routine follow up 3. Hypertension. Followed by Nephrology for renal artery stenosis. -Continue antihypertensives. 5. Hyperlipidemia. -On statin. RTC 03/2025 Electronically signed by Melanie Osuna NP Department of Cardiology [facility] 11/06/2024 2:59 PM documented in this encounter Nursing Notes * Jael Ann F - 11/06/2024 2:52 PM PDT Melanie Osuna SAP SENIOR DEVELOPER prefer to review patient's medications. PROACTIVE CARE [...] PDT Office Visit CARDIOLOGY [address] [phone] Melanie Osuna (N.P.), N.P. [address] [place] [phone] documented as of this encounter Visit Diagnoses Diagnosis ATRIAL FIBRILLATION, PAROXYSMAL HTN HYPERLIPIDEMIA PRESENCE OF CARDIAC PACEMAKER documented in this encounter Care Teams Director Mobile Relationship Specialty Start Date End Date Wilmer Ludwig), MTano. [address] [phone] PCP - General Family Practice 01/10/14 documented as of this encounter
--- OUTSIDE RECORDS SUMMARY | 2024-11-15 13:40 | XMS_ITS | Encounter Summary ---
Author Organization [facility] Address [address] [place] [address] Care Team Providers Care Software Maintenance Engineer Name Role Phone Wilmer Ludwig) Richie Primary Care Prov ider Unavailable Reason for Visit * Reason Comments FOLLOW UP EXAM Encounter Details Date Type Department Care Team (Late st Contact Info) Description 11/15/2024 11:40 AM PDT Telephone Appointment Visit FAMILY PRACTICE [address] [place] [phone] Wilmer Ludwig), M.D. [address] [place] [address] ATRIAL FIBRILLATION, UNSPECIFIED (Primary Dx); HTN; HYPERLIPIDEMIA; PREDIABETES; OSTEOPOROSIS; ATHEROSCLEROSIS AORTA; OSTEOARTHRITIS OF LEFT KNEE; SENILE PURPURA; DIASTOLIC HEART FAILURE, CHRONIC (HFPEF); BILAT PRIMARY OPEN ANGLE GLAUCOMA; OSTEOARTHRITIS OF LEFT HIP; HX OF [place], UNSPECIFIED TYPE; CKD STAGE 3A (GFR 45-59); [...] up Seen card Melanie Osuna 11/06/2024 Recently [facility] and admitted fast heart rate. Had dual chamber pacemaker placed 05/2023 Currently in [place]. [place]. Staying for most summer. Did discuss with changing to pradaxa when back from [place]. Did talk with coumadin. BP Readings from [...] OSTEOARTHRITIS OF LEFT HIP I25.2 HX OF MN, UNSPECIFIED TYPE N18.31 CKD STAGE 3A (GFR [...] AM PDT Office Visit CARDIOLOGY [address] [place] [phone] Melanie Osuna (N.P.), N.P. [address] [place] [phone] documented as of this encounter Visit Diagnoses Diagnosis ATRIAL FIBRILLATION, UNSPECIFIED- Primary ATRIAL FIBRILLATION HTN HYPERLIPIDEMIA PREDIABETES OSTEOPOROSIS ATHEROSCLEROSIS AORTA OSTEOARTHRITIS OF LEFT KNEE OSTEOARTHRITIS OF L KNEE SENILE PURPURA DIASTOLIC HEART FAILURE, CHRONIC (HFPEF) DIASTOLIC HEART FAILURE, CHRONIC BILAT PRIMARY OPEN ANGLE GLAUCOMA OSTEOARTHRITIS OF LEFT HIP OSTEOARTHRITIS OF L HIP HX OF MN, UNSPECIFIED TYPE CKD STAGE 3A (GFR 45-59) SUPRAVENTRICULAR TACHYCARDIA, NONSUSTAINED ANTICOAGULATION MONITORING, INR 2.0-3.0 ANEMIA documented in this encounter Care Teams Software Maintenance Engineer Relationship Specialty Start Date End Date Wilmer Ludwig), Dilma. [address] [place] [phone] PCP - General Family Practice 01/10/14 documented as of this encounter
--- OUTSIDE RECORDS SUMMARY | 2024-11-22 11:38 | XMS_ITS | Encounter Summary ---
Author Organization [facility] Address [address] [place] [address] Care Team Providers Care Heating Element Winder Name Role Phone Wilmer Ludwig) Richie Primary Care Prov ider Unavailable Reason for Visit * Reason Onset Date Comments PHARMACY ANTICOAGULATION CLINIC SERVICE 10/30/19 25 Encounter Details Date Type Department Care Team (Late st Contact Info) Description 10/29/2024 Telephone HEATH IP PHARMACY MAIN DEFAULT [address] [place] [address] Shante Anglin (Pharm.D), PHARM.D. [address] [place] [address] PHARMACY ANTICOAGULATION CLINIC SERVICE Social History Tobacco Use Types Packs/Day Years [...] as of this encounter Progress Notes * Shante Anglin (Pharm.D), PHARM.D. - 10/29/2024 7:43 PM PDT AAHPN (Anticoagulation After Hours Progress Note) Call from LAB INR 6.5 (AA) 10/29/2024 Anticoag Clinic After Hours Note RE: Saira Belle, [phone] Spoke with patient regarding critical INR. No s/sx of bleeding per patient. Counseled patient to goto UC/ER for uncontrolled bleeding lasting longer than 15 min or blood in urine or stool. INR 6.5 (AA) 10/29/2024 Goal INR: 2-3 Assessment/Plan: 1) INR is supratherapeutic. 2) Instructed patient to hold warfarin tonight. 3) Next INR Draw per Outpatient Anticoagulation Services Anticoagulation Clinic to follow-up with patient on next business day. Electronically signed by: Shante Anglin Clinical Pharmacist Specialist [facility] 10/29/2024 7:45 PM documented in this encounter Plan of Treatment Upcoming Encounters Date Type Department Care Team (Late st Contact Info) Description 03/05/2025 10:00 AM PDT Office Visit CARDIOLOGY [address] [phone] Melanie Osuna (N.P.), N.[address]. [address] [place] [phone] documented as of this encounter Visit Diagnoses Not on filedocumented in this encounter Care Teams Heating Element Winder Relationship Specialty Start Date End Date Wilmer Ludwig), MTano. [address] [phone] PCP - General Family Practice 01/10/14 documented as of this encounter
--- OUTSIDE RECORDS SUMMARY | 2024-11-22 11:39 | XMS_ITS | Encounter Summary ---
Author Organization [facility] Address [address] [place] [address] Care Team Providers Care Facing Baster Name Role Phone Wilmer Ludwig) Richie Primary Care Prov ider Unavailable Encounter Details Date Type Department Care Team (Late st Contact Info) Description 10/30/2024 Telephone FAMILY PRACTICE [address] [place] [address] Tessy Kerr), M.D. [address] [place] [address] Social History Tobacco Use Types Packs/Day Years [...] as of this encounter Progress Notes * Mirtha Green.Nikos.NHerlinda, L.V.N. - 10/31/2024 11:01 AM PDT Spoke to patient and informed of message. Patient stated understandings Mirtha Green LVN 11:02AM LIFE CARE PLANNING ADVOCATE NOTE Patient provided [...] not identified at this time Follow-up Plan: .[email or web address] * Jennifer Connolly R.N. R.NLamar - 10/30/2024 2:06 PM PDT 1st attempt to contact patient regarding message. Left message on voicemail to call back [phone] & encounter left open waiting for patient response/call back JENNIFER CONNOLLY RN * Tessy Kerr M.D., MMagdalene - 10/30/2024 12:47 PM PDT Please call and inform patient K is low K 3.0 (L) 10/29/2024 Low K can be due to her diet Take 2 tabs of K tab 10 meq daily for 3 days Increase potassium in her diet - please advise Any worrisome symptoms, follow up with nh or C, such as but not limited to chest pain, palpitation, shortness of breath etc Otherwise, repeat lab test in a week and follow up with primary care physician Anemia remains stable HGB Date Value Ref Range Status 10/29/2024 10.6 (L) 11.5 - 16.0 g/dL Final 10/22/2024 10.5 (L) 11.5 - 16.0 g/dL Final 10/21/2024 9.7 (L) 11.5 - 16.0 g/dL Final 10/20/2024 10.0 (L) 11.5 - 16.0 g/dL Final Follow up with primary care physician in 2-3 weeks Thank You, Electronically signed by: TESSY KERR MD 10/30/2024 documented in this encounter Plan of Treatment Upcoming Encounters Date Type Department Care Team (Late st Contact Info) Description 03/05/2025 10:00 AM PDT Office Visit CARDIOLOGY [address] [place] [address] Melanie Osuna (N.P.), N.P. [address] [place] [address] documented as of this encounter Procedures Procedure Name Priority Date/Time Associated Diagnosis Comments POTASSIUM Routine 11/04/2024 8:41 AM PDT HYPOKALEMIA documented in this encounter Results * POTASSIUM (11/04/2024 8:41 AM PDT) POTASSIUM 4.0 3.5 - 5.1 mEq/L [facility], CLINICAL PATHOLOGY [facility] Comment: Please review results carefully for any changes to reference ranges (indicated by R superscript). Deployment of new chemistry analyzers is occurring across through 2026. BLOOD / Unknown 11/04/2024 8 :41 AM PDT Narrative [facility], CLINICAL PATHOLOGY [facility] - 11/04/2024 3:11 PM PDT [facility] ACCN: [id number] Wilmer Ludwig M.D. SERUM CHEM ISTRY [facility], CLINICAL PATHOLOGY [facility] [address] [place] [address] documented in this encounter Visit Diagnoses Diagnosis HYPOKALEMIA documented in this encounter Care Teams Facing Baster Relationship Specialty Start Date End Date Wilmer Ludwig M.D., Dilma. [address] [address] PCP - General Family Practice 01/10/14 documented as of this encounter
--- OUTSIDE RECORDS SUMMARY | 2024-11-22 11:40 | XMS_ITS | Encounter Summary ---
Author Organization [facility] Address [address] [place] [address] Care Team Providers Care Auto Polisher Name Role Phone Wilmer Ludwig) Richie Primary Care Prov ider Unavailable Encounter Details Date Type Department Care Team (Late st Contact Info) Description 09/25/2024 Anticoagulation [facility] [address] [place] [address] Noah Dill (Pharm.D), PHARM.D. [address] [place] [phone] Social History Tobacco Use Types Packs/Day Years [...] as of this encounter Progress Notes * Noah Dill (Pharm.D), PHARM.D. - 10/15/2024 1:58 PM PDT Patient admitted,plan to follow-up after discharge Electronically signed by: NOAH DILL PHARMFamilia 10/15/2024 1:58 PM * Noah Dill.Familia), ARNAV. - 09/25/2024 9:59 AM PDT Primary Care Physician: Wilmer Ludwig) Sent: Stable secure message via [employer] S/O: Patient to call for any questions, missed doses, changes in medications, significant changes in diet, appetite, alcohol intake, physical activity level, health, recent hospital admissions, recent falls or injuries, signs or symptoms of bleeding/bruising, or upcoming invasive procedures. INR 2.4 (H) 09/24/2024 Indications: Atrial Fibrillation (I48.91) INR Low Range: 2 - INR High Range: 3 Warfarin Tab (MG): 2mg Lavender A/P: INR Therapeutic Continue Warfarin Dosing Instructions: 3mg daily exc 4mg Tues Follow up date: 10/29/24 Patient is aware of seeking immediate medical attention (Urgent Care or Emergency Department) if notice any blood in urine/stool, black tarry stools, coughing/ vomiting blood, any bleeding that lastslonger than 15 minutes, abnormal bruises that get larger and darker quickly, or any signs or symptoms of clotting/stroke. Electronically signed by: NOAH DILL PHARMFamilia 09/25/2024 10:28 AM documented in this encounter Plan of Treatment Upcoming Encounters Date Type Department Care Team (Late st Contact Info) Description 03/05/2025 10:00 AM PDT Office Visit CARDIOLOGY [address] [place] [address] Melanie Osuna (N.P.), N.P. [address] [place] [phone] documented as of this encounter Visit Diagnoses Not on filedocumented in this encounter Care Teams Auto Polisher Relationship Specialty Start Date End Date Wilmer Ludwig M.D., M.D. [address] [address] PCP - General Family Practice 01/10/14 documented as of this encounter
--- OUTSIDE RECORDS SUMMARY | 2024-11-22 11:40 | XMS_ITS | Encounter Summary ---
Author Organization [facility] Address [address] [place] [address] Care Team Providers Care Film Writer Name Role Phone Wilmer Ludwig) Richie Primary Care Prov ider Unavailable Encounter Details Date Type Department Care Team (Late st Contact Info) Description 10/22/2024 Anticoagulation DEFAULT [facility] [address] [place] [address] Noah Dill (Pharm.D), PHARM.D. [address] [place] [phone] Social History Tobacco Use Types Packs/Day Years [...] Notes * Noah Dill (Pharm.D), PHARM.D. - 10/22/2024 4:20 PM PDT Primary care physician: Wilmer Ludwig (Richie) Spoke with patient. Reports eating well. S/O: Patient: Confirmed dose/tablet strength Denied missed doses Denied significant changes in diet, appetite, alcohol intake, or physical activity level Denied recent falls or injuries Denied signs and symptoms of bleeding or bruising Denied upcoming invasive procedures Patient Reported: Per IP: 4/2.5/1/0/0/1mg 10/16-10/21, 3mg daily exc 4mg Tues INR 3.1 (H) 10/21/2024 Indications: Atrial Fibrillation (I48.91) INR Low Range: 2 - INR High Range: 3 Warfarin Tab (MG): 2mg Lavender A/P: INR: supratherapeutic Warfarin Dosing Instructions: decr 3mg daily Follow up date: 10/29/24 INR done today, still shows collected - will follow-up tomorrow. Confirmed patient???s understanding of warfarin instruction by having patient repeat back the instruction. Advised to call Outpatient Anticoagulation Services (OACS) with any questions or concerns. Patient is aware of seeking immediate medical attention (Urgent Care or Emergency Department) if notice any blood in urine/stool, black tarry stools, coughing/ vomiting blood, any bleeding that lastslonger than 15 minutes, abnormal bruises that get larger and darker quickly, or any signs or symptoms of clotting/stroke. Electronically signed by: NOAH DILL PHARMFamilia 10/22/2024 4:21 PM * Noah Dill (Pharm.D), PHARM.D. - 10/22/2024 9:36 AM PDT Images from the original note were not included. History: 10/22/2024 11:11 AM Anticoagulation follow up note: Received discharge notification from [facility] pharmacy Pt recently admitted to [facility] (Admit Date: 10/14/2024 and Discharge Date: 10/21/2024) due to ATRIAL FIBRILLATION W RAPID VENTRICULAR RESPONSE likely 2/2 dehydration 2/2 gastroenteritis Patient started on warfarin for Afib INR goal 2-3 Inpatient warfarin dosing history: Per IP: 4/2.5/1/0/0/1mg 10/16-10/21 Per inpatient pharmacist notes on 10/21/24: Inpatient Pharmacy Anticoagulation Discharge Progress Note Saira Belle [phone] Height: Ht Readings from Last 1 Encounters: [...] be determined when lab result available. Call [phone] for all further warfarin dosing and follow [...] day following discharge. Outpatient Anticoagulation Services at [place] (including [place]) to follow patient upon discharge. Next INR: Patient instructed to go to the nearest [place] facility to draw next INR on 10/22/24. Per discharge summary, following medication changes: STOP taking these medications Lisinopril 5 mg [...] tablet by mouth 2 times a day Primary Care Physician: Wilmer Ludwig) Left message on mobile phone number. S/O: INR 3.1 (H) 10/21/2024 Indications: Atrial Fibrillation (I48.91) Warfarin Tab (MG): 2mg Lavender INR Low Range: 2 - INR High Range: 3 Previous Dosing Instruction - Per IP: 4/2.5/1/0/0/1mg 10/16-10/21 A/P: INR supratherapeutic Warfarin Dosing Instructions: decr 3mg daily Follow up date: 10/24/24 Left message about possible drug-drug interaction with amiodarone and warfarin (possible increase in INR) and advise to continue to monitor for bleeding/bruising. Will monitor INR more closely. Patient to call for any questions, missed doses, changes in medications, significant changes in diet, appetite, alcohol intake, physical activity level, health, recent hospital admissions, recent falls or injuries, signs or symptoms of bleeding/bruising, or upcoming invasive procedures. Patient is aware of seeking immediate medical attention (Urgent Care or Emergency Department) if notice any blood in urine/stool, black tarry stools, coughing/ vomiting blood, any bleeding that lastslonger than 15 minutes, abnormal bruises that get larger and darker quickly, or any signs or symptoms of clotting/stroke. Electronically signed by: NOAH DILL PHARMD 10/22/2024 11:40 AM documented in this encounter Nursing Notes * Sourav Amato - 10/22/2024 4:08 PM PDT Images from the original note were not included. Patient Verbalized Understand. Electronically signed by SOURAV AMATO Grain Roaster 10/22/2024 4:08 PM * Sourav Amato - 10/22/2024 3:09 PM PDT Patient called to speak with pharm d but she was talking with another patient at the time Patient stated she did not receive any voicemails form us Pharm d to call patient back Forwarded to Pharm.D to address. Electronically signed by SOURAV AMATO Grain Roaster 10/22/2024 3:17 PM documented in this encounter Plan of Treatment Upcoming Encounters Date Type Department Care Team (Late st Contact Info) Description 03/05/2025 10:00 AM PDT Office Visit CARDIOLOGY [address] [place] [phone] Melanie Osuna (N.P.), N.P. [address] [place] [phone] documented as of this encounter Visit Diagnoses Not on filedocumented in this encounter Care Teams Film Writer Relationship Specialty Start Date End Date Wilmer Ludwig), Richie [address] [address] PCP - General Family Practice 01/10/14 documented as of this encounter
--- OUTSIDE RECORDS SUMMARY | 2024-11-22 11:40 | XMS_ITS | Encounter Summary ---
Author Organization [facility] Address [address] [place] [address] Care Team Providers Care Bed And Breakfast Operator Name Role Phone Wilmer Ludwig) Richie Primary Care Prov ider Unavailable Encounter Details Date Type Department Care Team (Late st Contact Info) Description 10/23/2024 Anticoagulation [facility] [address] [place] [address] Noah Dill (Pharm.D), PHARM.D. [address] [place] [phone] Social History Tobacco Use Types Packs/Day Years [...] Notes * Noah Dill (Pharm.D), PHARM.D. - 10/23/2024 9:49 AM PDT Primary Care Physician: Wilmer Ludwig) S/O: Instructed Anticoagulation Replenishment Merchandising Associate/Social Welfare Research Worker to call patient to check if patient has anyquestions or concerns and: Confirm tablet strength and previous dosing instruction Missed doses Changes in medications (Both prescriptions and OTC such as herbals, vitamins, nutritional supplements) Significant changes in diet, appetite, alcohol intake, or physical activity level Significant changes in health or recent hospital admissions Recent falls or injuries Signs or symptoms of bleeding or bruising Upcoming invasive procedures. INR 2.4 (H) 10/22/2024 Indications: Atrial Fibrillation (I48.91) INR Low Range: 2 - INR High Range: 3 Warfarin Tab (MG): 2mg Lavender A/P: INR: within therapeutic range Instructed ob gyn physician assistant to give the following instructions: Warfarin Dosing Instructions: 3mg daily (same as 1 and 1/2 tablets daily) Follow up date: 10/29/24 Creative Services Manager/Social Welfare Research Worker to confirm patient???s understanding of warfarin instruction and ask to repeatback the instruction. Electronically signed by: NOAH DILL PHARMD 10/23/2024 9:51 AM documented in this encounter Nursing Notes * Perlita Marti - 10/23/2024 12:17 PM PDT Spoke with patient Patient reports: No change in tablet strength and previous dosing instruction No missing doses No changes in medications (Both prescriptions and OTC such as herbals, vitamins, nutritional supplements) No changes in diet, appetite, alcohol consumption, or physical activity level No changes in health or recent hospital admissions No falls or injuries No signs and symptoms of bleeding or bruising No upcoming procedures (including dental work) Patient reported no changes, reminded patient to follow current dosing instruction and next INR date 10/29/24. Electronically signed by PERLITA MARTI Landfill Grader 10/23/2024 12:17 PM documented in this encounter Plan of Treatment Upcoming Encounters Date Type Department Care Team (Late st Contact Info) Description 03/05/2025 10:00 AM PDT Office Visit CARDIOLOGY [address] [phone] Melanie Osuna (N.P.), N.P. [address] [place] [address] documented as of this encounter Visit Diagnoses Not on filedocumented in this encounter Care Teams Bed And Breakfast Operator Relationship Specialty Start Date End Date Wilmer Ludwig)Dilma. [address] [place] [address] PCP - General Family Practice 01/10/14 documented as of this encounter
--- OUTSIDE RECORDS SUMMARY | 2024-11-22 11:40 | XMS_ITS | Encounter Summary ---
Author Organization [facility] Address [address] [place] [address] Care Team Providers Care Geophysical Data Technician Name Role Phone Wilmer Ludwig M.D., M.D. Primary Care Prov ider Unavailable Reason for Visit * Reason Onset Date Comments HOSPITAL FOLLOW UP 10/22/2024 Transitional Care Management / Post Hospital Discharge Call - Continuing Care Services Encounter Details Date Type Department Care Team (Latest Contact Info) Description 10/22/2024 Transitional Care Mgmnt-Telephone CONTINUING CARE LTC DEFAULT [address] [place] [address] Uche Hensley (R.N.), R.N. [address] [place] [address] HOSPITAL FOLLOW UP (Transitional Care Management / Post Hospital Discharge Call - Continuing Care Services /) Social History Tobacco Use Types Packs/Day Years [...] as of this encounter Progress Notes * Uche Hensley (R.N.), R.N. - 10/22/2024 1:02 PM PDT Continuing Care Department Transitional Care Management - Post Hospital Discharge (POSH) Situation: Post Hospital Discharge Follow-Up Call Telephone call to patient for Transitional Care Management hospital discharge follow up to review discharge instructions, medications, appointment, to assess how patient is progressing and feeling, and answer questions the member or family member might have. Background: Last Admit Date: 10/14/2024 Discharge Date 10/21/24 Assessment: 2 HIPAA Identifiers: [x] Name [x] Date of [] Other 10/21/2024 5:21 PM LACE REPORT Readmission Risk Score 13 HGBA1C 5.8 11/09/2023 Recent Labs _ 11/09/23 0842 04/25/23 0937 10/26/22 1053 HGA1C 5.8 5.9 5.9 Last Encounter this department: Visit date not found Interventions and information given: Appointment confirmed Future Appointments Date Time Provider Department Center 10/26/2024 10:10 AM Tessy Kerr M.D., M.D. [facility] Emphasized and educated [x] patient, [] caregiver, [] family member on the importance of keeping the post hospital follow-up discharge appointment in order to follow up on current status and prevent further hospitalizations. Advised to have all current medications available at this appointment. Opportunity given to verbalize feelings regarding any current needs/concerns. Provided active listeningand encouragement. Recommendations: Refill suggested for patient and reinforced need to follow the prescription for life long therapy. Reminded of After-hours advice line( ) and resource telephone numbers on the discharge instructions. Informed that our call is a follow up on the care at home post discharge and to address any concerns as well as to educate and assess the status of the patient and answer questions to alleviate barriers and to also understand that this is not an emergency response unit and to call 911 for immediatemedical emergencies. Evaluation: Telephone conversation summarized and [x] patient, [] caregiver, [] family member verbalized understanding. Questionnaire completed (POST DISCHARGE FOLLOW UP CALL) - [x] yes [] no Reviewed Discharge instructions and Medications with [x] patient, [] caregiver, [] family member. Medication/MRAR List Medication MRAR DSR Atorvastatin (LIPITOR) 10 mg Oral Tab 92 29 cloNIDine (CATAPRES-TTS 1) 0.1 mg/24 hr TD Weekly Patch 99 46 dilTIAZem (CARDIZEM CD) 120 mg Oral 24hr SR Cap 100 129 dilTIAZem (CARDIZEM) 30 mg Oral Tab 24 -106 Warfarin 2 mg Oral Tab 79 30 Amiodarone (PACERONE) 200 mg Oral Tab Carvedilol (COREG) 12.5 mg Oral Tab Dorzolamide-Timolol (COSOPT) 22.3-6.8 mg/mL Opht Drop Latanoprost (XALATAN) 0.005 % Opht Drop Nitrofurantoin Monohydrate (MACROBID) 100 mg Oral Cap MRAR may not represent the member's true adherence if additional medication is received from outside pharmacies, if the amount taken is different than the Sig, or if the patient has stopped the medication, but it was not discontinued from the [facility] meds list. Electronically signed by: Raheem Hensley RN 10/22/2024 1:02 PM documented in this encounter Plan of Treatment Upcoming Encounters Date Type Department Care Team (Late st Contact Info) Description 03/05/2025 10:00 AM PDT Office Visit CARDIOLOGY [address] [place] [phone] Melanie Osuna (N.P.), N.P. [address] [place] [phone] documented as of this encounter Visit Diagnoses Not on filedocumented in this encounter Care Teams Geophysical Data Technician Relationship Specialty Start Date End Date Wilmer Ludwig), Dilma. [address] [place] [phone] PCP - General Family Practice 01/10/14 documented as of this encounter
--- OUTSIDE RECORDS SUMMARY | 2024-11-22 11:41 | XMS_ITS | Encounter Summary ---
Author Organization [facility] Address [address] [place] [address] Care Team Providers Care Mines Inspector Name Role Phone Wilmer Ludwig M.D., M.D. Primary Care Prov ider Unavailable Reason for Visit * Reason Onset Date Comments VIRTUAL DERMATOLOGY VISIT 03/11/2024 Encounter Details Date Type Department Care Team (Late st Contact Info) Description 03/11/2024 [facility] FAMILY PRACTICE [address] [place] [address] Hodan Garcia), M.D. [address] [place] [address] VIRTUAL DERMATOLOGY VISIT Social History Tobacco Use Types Packs/Day Years [...] as of this encounter Progress Notes * Jemal Conley M.D., MMagdalene - 03/11/2024 9:42 AM PDT Telederm Service (*#+) Primary Care Provider: Please review advice below. Image(s) reviewed. Interpretation and recommendation: She appears to have seborrheic keratoses, which are benign lesions. They can be removed with cryotherapy in the Cosmetic clinic. We have a web page for your patient to visit that describes our cosmetic services, products, and locations. Please visit [email or web address] Any recommended medications have already been pended for you. This evaluation is based on the history provided in this consult and not a full chart review and islimited by 2D photos. If you have any concerns with this diagnosis or plan, please send a message directly back to me andnot the Telederm Message Pool. To avoid in-basket clutter, no need to reply thank you. Thank you for sending us this Telederm Consult. Electronically signed by: JEMAL CONLEY MD 03/11/2024 9:42 AM * Hodan Garcia M.D., M.D. - 03/11/2024 9:17 AM PDT Images from the original note were not included. Lesion noted. Body location: left breast Duration: unsure how long it has been there Other symptoms (itch, burn, bleeding, etc): none This is a request to provide non-urgent advice based upon patient photo(s) and the following information. If this patient problem is not answerable based on the history and photo provided, please consider this a consultation request. Patient gave verbal consent to participate in Teledermatology. documented in this encounter Plan of Treatment Upcoming Encounters Date Type Department Care Team (Late st Contact Info) Description 03/05/2025 10:00 AM PDT Office Visit CARDIOLOGY [address] [phone] Melanie Osuna (N.P.), N.P. [address] [place] [address] documented as of this encounter Visit Diagnoses Not on filedocumented in this encounter Care Teams Mines Inspector Relationship Specialty Start Date End Date Wilmer Ludwig), Dilma. [address] [address] PCP - General Family Practice 01/10/14 documented as of this encounter
--- OUTSIDE RECORDS SUMMARY | 2024-11-22 11:41 | XMS_ITS | Encounter Summary ---
Author Organization [facility] Address [address] [place] [address] Care Team Providers Care Nuclear Officer Name Role Phone Wilmer Ludwig) Richie Primary Care Prov ider Unavailable Encounter Details Date Type Department Care Team (Late st Contact Info) Description 05/08/2021 Home Care Visit DEFAULT HOME [address] [address] Social History Tobacco Use Types Packs/Day Years Used Date Smoking Tobacco: Never Smokeless Tobacco: Never Alcohol Use Standard Drinks/Week Comments Yes 1 (1 standard drink = 0.6 oz pur e alcohol) occ Substance Use Types Use/Week Comments No Sex and Gender Information Value Date Recorded Sex Assigned at Not on file Gender Identity Not on file Sexual Orientation Not on file documented as of this encounter Plan of Treatment Upcoming Encounters Date Type Department Care Team (Late st Contact Info) Description 03/05/2025 10:00 AM PDT Office Visit CARDIOLOGY [address] [place] [phone] Melaine Osuna (N.P.), N.P. [address] [place] [phone] documented as of this encounter Visit Diagnoses Not on filedocumented in this encounter Care Teams Nuclear Officer Relationship Specialty Start Date End Date Wilmer Ludwig M.D., Dilma. [address] [place] [address] PCP - General Family Practice 01/10/14 documented as of this encounter
--- OUTSIDE RECORDS SUMMARY | 2024-11-22 11:41 | XMS_ITS | Encounter Summary ---
Author Organization [facility] Address [address] [facility] [place] [address] Care Team Providers Care High School Physical Education Teacher Name Role Phone Wilmer Ludwig) Richie Primary Care Prov ider Unavailable Encounter Details Date Type Department Care Team (Late st Contact Info) Description 04/29/2021 Home Care Visit DEFAULT HOME [address] [phone] Social History Tobacco Use Types [...] AM PDT Office Visit CARDIOLOGY [address] [place] [phone] Melanie Osuna (N.P.), N.P. [address] [place] [phone] documented as of this encounter Visit Diagnoses Not on filedocumented in this encounter Care Teams High School Physical Education Teacher Relationship Specialty Start Date End Date Wilmer Ludwig M.D., Dilma. [address] [place] [address] PCP - General Family Practice 01/10/14 documented as of this encounter
--- OUTSIDE RECORDS SUMMARY | 2024-11-22 11:41 | XMS_ITS | Encounter Summary ---
Author Organization [facility] Address [address] [place] [address] Care Team Providers Care Flue Cleaner Name Role Phone Wilmer Ludwig) Dilma. Primary Care Prov ider Unavailable Encounter Details Date Type Department Care Team (Late st Contact Info) Description 10/04/2023 Refill FAMILY PRACTICE [address] [place] [phone] Wilmer Ludwig), M.D. [address] [place] [address] Medications Social History Tobacco Use Types Packs/Day Years [...] PDT Office Visit CARDIOLOGY [address] [phone] Melanie Osuna (N.P.), N.P. [address] [place] [address] documented as of this encounter Visit Diagnoses Diagnosis HTN documented in this encounter Care Teams Flue Cleaner Relationship Specialty Start Date End Date Wilmer Ludwig)Dilma. [address] [place] [address] PCP - General Family Practice 01/10/14 documented as of this encounter
--- OUTSIDE RECORDS SUMMARY | 2024-11-22 11:41 | XMS_ITS | Encounter Summary ---
Author Organization [facility] Address [address] [facility] [place] [address] Care Team Providers Care Organizational Effectiveness Consultant Name Role Phone Wilmer Ludwig) Richie Primary Care Prov ider Unavailable Encounter Details Date Type Department Care Team (Late st Contact Info) Description 05/04/2021 Home Care Visit DEFAULT HOME [address] [phone] Social History Tobacco Use Types [...] AM PDT Office Visit CARDIOLOGY [address] [place] [phone] Melanie Osuna (N.P.), N.P. [address] [place] [phone] documented as of this encounter Visit Diagnoses Not on filedocumented in this encounter Care Teams Organizational Effectiveness Consultant Relationship Specialty Start Date End Date Wilmer Ludwig M.D., Dilma. [address] [place] [address] PCP - General Family Practice 01/10/14 documented as of this encounter
--- OUTSIDE RECORDS SUMMARY | 2024-11-22 11:41 | XMS_ITS | Encounter Summary ---
Author Organization [facility] Address [address] [place] [address] Care Team Providers Care Paperhanger And Painter Name Role Phone Wilmer Ludwig) Richie Primary Care Prov ider Unavailable Encounter Details Date Type Department Care Team ([facility] Contact Info) Description 04/29/2021 Home Care Visit DEFAULT [facility] [address] [phone] Social History Tobacco Use Types [...] Sign Reading Time Taken Comments Blood Pressure 130/70 04/29/2021 1:25 PM PDT Pulse 76 04/29/2021 1:25 PM PDT Temperature 37 C (98.6 F) 04/29/2021 1:25 PM PDT Respiratory Rate 17 04/29/2021 1:25 PM PDT Oxygen Saturation - - Inhaled Oxygen Concentration - - Weight - - Height - - Body Mass Index - - documented in this encounter Plan of Treatment Upcoming Encounters Date Type Department Care Team (Late Contact Info) Description 03/05/2025 10:00 AM PDT Office Visit CARDIOLOGY [address] [phone] Melanie Osuna (N.P.), N.P. [address] [place] [phone] documented as of this encounter Visit Diagnoses Not on filedocumented in this encounter Care Teams Paperhanger And Painter Relationship Specialty Start Date End Date Wilmer Ludwig), Dilma. [address] [place] [phone] PCP - General Family Practice 01/10/14 documented as of this encounter
--- OUTSIDE RECORDS SUMMARY | 2024-11-22 11:41 | XMS_ITS | Encounter Summary ---
Author Organization [facility] Address [address] [place] [address] Care Team Providers Care Ropeman Name Role Phone Wilmer Ludwig) Richie Primary Care Prov ider Unavailable Encounter Details Date Type Department Care Team (Late st Contact Info) Description 04/21/2021 Orders Only FAMILY MEDICINE CV19 VACCINE [address] [phone] Scal E-Visit, Provider Fabian)Richie [address] [place] [address] VACCINATION FOR SARS-COV-2 Social History Tobacco Use Types Packs/Day Years [...] 03/05/2025 10:00 AM PDT Office Visit CARDIOLOGY [address] [place] [address] Melanie Osuna (N.P.), N.P. [address] [place] [address] documented as of this encounter Visit Diagnoses Diagnosis VACCINATION FOR SARS-COV-2 documented in this encounter Care Teams Ropeman Relationship Specialty Start Date End Date Wilmer Ludwig), Richie [address] [place] [address] PCP - General Family Practice 01/10/14 documented as of this encounter
--- OUTSIDE RECORDS SUMMARY | 2024-11-22 11:41 | XMS_ITS | Encounter Summary ---
Author Organization [facility] Address [address] [place] [place] [address] Care Team Providers Care Type Bar And Segment Assembler Name Role Phone Wilmer Ludwig) Dilma. Primary Care Prov ider Unavailable Encounter Details Date Type Department Care Team (Late st Contact Info) Description 10/12/2022 Refill FAMILY PRACTICE [address] [place] [phone] Wilmer Ludwig), M.D. [address] [place] [phone] Medications Social History Tobacco Use Types Packs/Day Years Used Date Smoking Tobacco: Never Smokeless Tobacco: Never Comments:once per week-wine [...] PDT Office Visit CARDIOLOGY [address] [phone] Melanie Osuna (N.P.), N.P. [address] [place] [phone] documented as of this encounter Visit Diagnoses Diagnosis ATRIAL FIBRILLATION, UNSPECIFIED ATRIAL FIBRILLATION documented in this encounter Care Teams Type Bar And Segment Assembler Relationship Specialty Start Date End Date Wilmer Ludwig), Dilma. [address] [place] [address] PCP - General Family Practice 01/10/14 documented as of this encounter
--- OUTSIDE RECORDS SUMMARY | 2024-11-22 11:41 | XMS_ITS | Encounter Summary ---
Author Organization [facility] Address [address] [facility] [place] [address] Care Team Providers Care Tile Setter Apprentice Name Role Phone Wilmer Ludwig) Richie Primary Care Prov ider Unavailable Encounter Details Date Type Department Care Team (Late st Contact Info) Description 05/11/2021 Home Care Visit DEFAULT HOME [address] [phone] Social History Tobacco Use Types [...] AM PDT Office Visit CARDIOLOGY [address] [place] [phone] Melanie Osuna (N.P.), N.P. [address] [place] [phone] documented as of this encounter Visit Diagnoses Not on filedocumented in this encounter Care Teams Tile Setter Apprentice Relationship Specialty Start Date End Date Wilmer Ludwig M.D., Dilma. [address] [place] [address] PCP - General Family Practice 01/10/14 documented as of this encounter
--- OUTSIDE RECORDS SUMMARY | 2024-11-22 11:41 | XMS_ITS | Clinical Summary ---
Author Organization [facility] Address [address] [place] [address] Care Team Providers Care Molder Meat Name Role Phone Pcp, No Primary Care Provider Unavailabl e Allergies Active Allergy Reactions Criticality Noted Date Comments Cefuroxime Rash 06/08/2017 Codeine Hives 10/11/2012 Meperidine Hives 10/11/2012 Penicillins Hives 10/11/2012 Oxycodone-Acetaminophen Hives 10/11/2012 Oxycodone Zit-Kcabrbkdb-Xcq Hives 10/12/19 13 Sulfa (Sulfonamide Antibiotics) Hives 10/01 Medications cholecalciferol (VITAMIN D3) 1,000 unit tablet Take 1 tablet by mouth once daily. 0 10/11/2012 Active lisinopril (PRINIVIL; ZESTRIL) 20 mg tablet Take 1 tablet by mouth once daily. 0 10/11/2012 Active latanoprost (XALATAN) 0.005 % ophthalmic solution Place 1 Drop into both eyes at bedtime. 2.5 mL 0 11/14/2012 Active cloNIDine 0.1 mg/24 hr ([id number]-JSV-4 ) 0.1 mg/24 hr patch 11/13/2018 Active diltiazem LA (CARDIZEM LA) 240 mg extended release 24 hr tablet 01/03/2019 Active atorvastatin (LIPITOR) 10 mg tablet Take 1 tablet by mouth once daily. 12/20/2018 Active cloNIDine HCl (CATAPRES) 0.1 mg tabletIndicatio ns:HTN (hypertension) Take one tab orally every 12 hours as needed for systolic blood pressure greater than 140. Make sure heart rate is greater than 65. 50 tablet 1 03/08/2019 Active Active Problems Problem Noted Date Diagnosed Date Atrial fibrillation with RVR 12/06/2017 Paroxysmal atrial fibrillation 12/05/2017 Overview (12/05/2017): Patient states she is usually in sinus rhythm, is on warfarin. Chronic congestive heart failure 12/05/2017 Chronic renal insufficiency, stage III (moderate ) 08/01/2017 Osteoarthritis of left hip 10/25/2016 Primary open angle glaucoma (POAG) of both eyes 05/17/2016 Encounter for therapeutic drug level monitoring 10/23/2015 Overview (12/06/2017): Overview: IP referral for afib Atrial fibrillation 10/21/2015 Osteoarthritis of right knee 04/15/2015 Chronic diastolic heart failure 09/16/2014 Senile purpura 07/25/2014 Osteoarthritis of left knee 01/17/2014 Overweight 11/14/2013 Prediabetes 08/12/2013 Atherosclerosis of aorta 01/04/2013 Bilateral renal artery stenosis 01/04/2013 Overview (12/06/2017): Overview: Renal ultrasound 11/02/12 from [place]: 1. Unable to see the origin of the left renal artery due to calcification. There are elevated velocities in the left renal artery suggestion a hemodynamically significant stenosis. If clinically indicated, an angiogram with intent to treat could be considered. 2. Normal ultrasound appearance of the kidneys, bilaterally. Cardiac MRI performed on 11/02/12 in [place]: indication: severe Hypertension with suspected severe concentric [...] artery stenosis, likely moderate renal artery stenosis. Left ventricular hypertrophy due to hypertensive disease 10/26/2012 Anemia, unspecified 10/11/2012 Hypertensive urgency 10/11/2012 Colon polyp 02/29/2012 Overview (12/06/2017): Overview: Tubular adenoma polypectomy 02/2012 Diverticulosis of colon 02/29/2012 Osteopenia 12/29/2011 Overview (12/06/2017): Overview: 08-19-2011 DXA T-score: -1.2 (left neck) Z-score: 0.4 FRAX Scores are not Elevated Vitamin D deficiency 09/01/2011 Allergic rhinitis 08/18/2011 Glaucoma 08/18/2011 Family history of malignant neoplasm of breast 0 08/18/2011 Hx of hysterectomy, total 08/18/2011 HTN (hypertension) 07/15/2011 Overview (12/06/2017): Overview: Discontinued mazxide during hospitalization Last Admit Date: 04/24/2012 due to Orthostatic hypotension - started metoprolol. Metoprolol changed to carvedilol 10/2012 while in [place] for uncontrolled Hypertension Start hydrochlorothiazide 12.5 mg [...] artery stenosis, likely moderate renal artery stenosis. Hyperlipidemia 07/15/2011 Immunizations Immunization Administration Dates Next Due DT (Age < 7 years) 09/05/1995 Influenza Virus, Unspecified 03/03/2017 Influenza, IIV4 03/22/2016, 5,05/20/2014,2012,03/19/2012,05/03/2011,01/31/2011 Influenza, Inactivated IIV3 (Age 65+ Years) Preserv Free 03/08/2019 Pneumococcal Poly,23-Valent (Pneumovax) 07/15/2011 Pneumococcal conj 13-Valent (Prevnar 13) 03/10/2015 Tdap 08/01/2012 Zoster (Zostavax-ZVL, live) 08/01/2012 Family History Medical History Relation Name Comments Heart Disease Father Hypertension Father Heart Disease Mother Hypertension Mother Relation Name Status Comments Father Mother Social History Tobacco Use Types Packs/Day Years Used Date Smoking Tobacco: Never Smokeless Tobacco: Never Tobacco Cessation:Counseling Given: Yes Alcohol Use Standard Drinks/Week Comments Yes 0.8 (1 standard drink = 0.6 oz p ure alcohol) occasionally PHQ-2 Answer Date Recorded PHQ-2 Score 0 09/04/2018 Social Connections Answer Date Recorded Frequency of Communication with Friends and Fami ly Not on file 12/14/2021 Comments No Sex and Gender Information Value Date Recorded Sex Assigned at Not on file Legal Sex Female 1:19 PM CDT Gender Identity Not on file Sexual Orientation Not on file Obstetrics History Para Term AB IAB SAB Ectopic Multiple Livin g Live Births 3 3 3 Date Outcome GA Total Labor Labor/2nd/3rd Weight Sex Type Anes PTL Gloria A1 A5 Name Clin Para Para Para Last Filed Vital Signs Vital Sign Reading Time Taken Comments Blood Pressure 106/74 12/14/2021 8:01 AM CDT Pulse 83 12/14/2021 8:01 AM CDT Temperature 36.4 C (97.6 F) 12/14/2021 8:01 AM CDT Respiratory Rate 12 11/28/2012 1:17 PM CDT Oxygen Saturation 98% 12/14/2021 8:01 AM CDT Inhaled Oxygen Concentration - - Weight 66.7 kg (147 lb) 03/08/2019 1:41 PM CDT Height 160.5 cm (5' 3.19) 02/12/2019 9:14 AM CD T Body Mass Index 25.88 02/12/2019 9:14 AM CDT Plan of Treatment Health Maintenance Due Date Last Done Comments Depression screening for age 12+ 1957 DEXA/DXA scan for age 65+ 2009 Medicare Wellness for age 65+ 2009 Zoster (shingles) series for age 50+ (2 of 3) 09/26/2012 08/01/2012 RSV vaccine for adults or (1 - 1-dose 75+ series) 2019 BMI (ht and wt on same day) for age 18+ 01/16/2020 01/15/2019, 03/26/2018, 01/11/2018, Additional history exists Tetanus booster 08/01/2022 08/01/2012 COVID-19 vaccine series ( season) 2024 Influenza Vaccine (Season Ended) 2025 03/08/2019, 03/03/2017, 03/22/2016, Additional history exists Tdap Completed 08/01/2012 Pneumococcal series for age 50+ Completed 5, 07/15/2011 Care Teams Molder Meat Relationship Specialty Start Date End Date Pcp, No . PCP - General 01/11/18
--- OUTSIDE RECORDS SUMMARY | 2024-11-22 11:41 | XMS_ITS | Encounter Summary ---
Author Organization [facility] Address [address] [place] [address] Care Team Providers Care Product Marketer Name Role Phone Wilmer Ludwig) Dilma. Primary Care Prov ider Unavailable Encounter Details Date Type Department Care Team (Late st Contact Info) Description 03/23/2021 Refill FAMILY PRACTICE [address] [place] [phone] Wilmer Ludwig), M.D. [address] [place] [address] Medications Social History Tobacco Use [...] PDT Office Visit CARDIOLOGY [address] [place] [address] Melanie Osuna (N.P.), N.P. [address] [place] [phone] documented as of this encounter Visit Diagnoses Diagnosis HTN (HYPERTENSION) HTN documented in this encounter Care Teams Product Marketer Relationship Specialty Start Date End Date Wilmer Ludwig), MTano. [address] [place] [address] PCP - General Family Practice 01/10/14 documented as of this encounter
--- OUTSIDE RECORDS SUMMARY | 2024-11-22 11:41 | XMS_ITS | Encounter Summary ---
Author Organization [facility] Address [address] [place] [address] Care Team Providers Care Terrazzo Grinder Name Role Phone Wilmer Ludwig) Richie Primary Care Prov ider Unavailable Encounter Details Date Type Department Care Team (Late st Contact Info) Description 05/01/2021 Home Care Visit DEFAULT [facility] [address] [address] Social History Tobacco Use Types [...] Sign Reading Time Taken Comments Blood Pressure 138/60 05/01/2021 2:55 PM PDT Pulse 72 05/01/2021 2:55 PM PDT Temperature 36.9 C (98.5 F) 05/01/2021 2:55 PM PDT Respiratory Rate 16 05/01/2021 2:55 PM PDT Oxygen Saturation - - Inhaled Oxygen Concentration - - Weight - - Height - - Body Mass Index - - documented in this encounter Plan of Treatment Upcoming Encounters Date Type Department Care Team (Late st Contact Info) Description 03/05/2025 10:00 AM PDT Office Visit CARDIOLOGY [address] [phone] Melanie Osuna (N.P.), N.P. [address] [place] [phone] documented as of this encounter Visit Diagnoses Not on filedocumented in this encounter Care Teams Terrazzo Grinder Relationship Specialty Start Date End Date Wilmer Ludwig), Dilma. [address] [place] [place] [phone] PCP - General Family Practice 01/10/14 documented as of this encounter
--- OUTSIDE RECORDS SUMMARY | 2024-11-22 11:41 | XMS_ITS | Encounter Summary ---
Author Organization [facility] Address [address] [place] [address] Care Team Providers Care Mechanical Maintenance Technician Name Role Phone Wilmer Ludwig) Dilma. Primary Care Prov ider Unavailable Encounter Details Date Type Department Care Team (Late st Contact Info) Description 12/30/2022 Refill FAMILY PRACTICE [address] [place] [phone] Wilmer Ludwig), M.D. [address] [place] [address] Medications Social History Tobacco Use [...] PDT Office Visit CARDIOLOGY [address] [phone] Melanie Osuna (N.P.), N.P. [address] [place] [address] documented as of this encounter Visit Diagnoses Diagnosis HTN documented in this encounter Care Teams Mechanical Maintenance Technician Relationship Specialty Start Date End Date Wilmer Ludwig)Dilma. [address] [place] [address] PCP - General Family Practice 01/10/14 documented as of this encounter
--- OUTSIDE RECORDS SUMMARY | 2024-11-22 11:41 | XMS_ITS | Encounter Summary ---
Author Organization [facility] Address [address] [place] [address] Care Team Providers Care Tribal Council Member Name Role Phone Wilmer Ludwig) Richie Primary Care Prov ider Unavailable Encounter Details Date Type Department Care Team (Late st Contact Info) Description 05/08/2021 Home Care Visit DEFAULT [facility] [address] [phone] Social History Tobacco Use Types [...] Sign Reading Time Taken Comments Blood Pressure 140/80 05/08/2021 10:10 AM PDT Pulse 86 05/08/2021 10:10 AM PDT Temperature 37.4 C (99.3 F) 05/08/2021 10:10 AM PDT Respiratory Rate 16 05/08/2021 10:10 AM PDT Oxygen Saturation - - Inhaled Oxygen Concentration - - Weight - - Height - - Body Mass Index - - documented in this encounter Plan of Treatment Upcoming Encounters Date Type Department Care Team (Late st Contact Info) Description 03/05/2025 10:00 AM PDT Office Visit CARDIOLOGY [address] [place] [address] Melanie Osuna (N.P.), N.P. [address] [place] [phone] documented as of this encounter Visit Diagnoses Not on filedocumented in this encounter Home Health Visit - Care Plan Visit Details Visit Type - Discipline - Problems Problem Description Start Date Status Goals Interve ntions Patient Has a Drain Disciplines: Physical Therapy Patient has a Hemovac 04/28/2021 Resolved on 05/08/2021 1 goal linked to scheduled/documen salome intervention Code Status Disciplines: Physical Therapy 04/28/2021 Active 1 goal linked to scheduled/documen salome intervention Medications/Me dication Management Disciplines: Physical Therapy Patient with knowledge deficit in medication regime. 04/28/2021 Resolved on 05/08/2021 1 goal linked to scheduled/documen salome intervention Infection Prevention/Con trol - Knowledge Deficit Disciplines: Physical Therapy Knowledge deficit regarding infection prevention/control measures in the home and community. 04/28/2021 Resolved on 05/08/2021 1 goal linked to scheduled/documen salome intervention Skin Integrity - Surgical Incisions/Woun ds Disciplines: Physical Therapy Patient presents with surgical incision 04/28/2021 Active 1 goal linked to scheduled/documen salome intervention Pain Disciplines: Physical Therapy Patient is experiencing pain/discomfort 04/28/2021 Active 2 goals linked to scheduled/documen salome interventions Post-Operative Total Joint Replacement Disciplines: Physical Therapy 04/28/2021 Active 2 goals linked to scheduled/documen salome interventions Orthopedic Post-Operative Knowledge Deficit Disciplines: Physical Therapy Patient has a knowledge deficit regarding post-op Reviewed posterior THPs including no bending hip past 90 degrees, no internal rotation, and no crossing legs. Pt able to recall 3/3 and is in compliance 04/28/2021 Resolved on 05/08/2021 1 goal linked to scheduled/documen salome intervention Safety Disciplines: Physical Therapy Patient and Family at risk for injury due to increased fall risk and DME needs includeing waker and cane. Pt found to be at risk for falls. Reviewed fall prevention and safety with reinforcement of use of DME for assist and supervision of family at all times. Reviewed importance of FWW due to risk of having a fall. Pt verbalized understanding. Recommendations for appropriate chair height and clutter/rug removal. 04/28/2021 Resolved on 05/08/2021 1 goal linked to scheduled/documen salome intervention Goals Goal Associated Problem Outcome Goal Met? Visit Notes Drain Care Description: Patient's Hemovac will remain patent and free from complications until the drain is discontinued Patient Has a Drain Met Yes Code Status Remains Updated Description: Clinician will report code status changes throughout the plan of care Code Status Progressing No Medications/Medication Management Description: Patient and Family will verbalize understanding of their medication regimen including signs and symptoms to report, side effects, reasons for taking medications, special precautions and taking medications as ordered by 05/01/2021 Medications/Medication Management Met Yes Infection Control Measures Description: Patient and Family will verbalize understanding of infection prevention strategies and methods to prevent development or worsening of infection by today. Infection Prevention/Control - Knowledge Deficit Met Yes Surgical Incisions/Wounds Management Description: Patient's L Hip post-operative surgical site will progress through the stages of healing without complications throughout the plan of care Skin Integrity - Surgical Incisions/Wounds Progressing No Non-Pharmacologic Pain Management Strategies Description: Patient will verbalize understanding of non-pharmacological pain management strategies for participation in all exercises within 05/01/2021 Pain Met Yes Verbal Pain Management Description: Patient/caregiver will demonstrate safe use of appropriate modality for pain management within 05/01/2021 Pain Met Yes Range of Motion, Therapeutic Exercise, Strength and Endurance Description: Physical Therapist and Phyiscal Therapist Boiler Tube Reamer to perform ansd instruct a strengthening program. Post-Operative Total Joint Replacement Met Yes Functional Mobility Description: Pt to improve bed mobility to Indep. Improve transfers; Bed, Chair Toilet, Tub, Shower, Car to Mod indep. Improve ambulation levels/stairs/uneven Distance 300' Level of Mod Indep with FWW/SPC by 05/08/2021 Post-Operative Total Joint Replacement Progressing No Post-Operative Orthopedic Knowledge Management Description: Patient and Family will verbalize understanding of regarding L Posterior Hip precautions to enable patient to perform all transfers and exercises by today. Orthopedic Post-Operative Knowledge Deficit Met Yes Fall Risk Reduction Description: Patient and Family will verbalize understanding of strategies for fall prevention by 05/01/2021. Safety Met Yes documented in this encounter Care Teams Tribal Council Member Relationship Specialty Start Date End Date Wilmer Ludwig), Dilma. [address] [place] [phone] PCP - General Family Practice 01/10/14 documented as of this encounter
--- OUTSIDE RECORDS SUMMARY | 2024-11-22 11:41 | XMS_ITS | Encounter Summary ---
Author Organization [facility] Address [address] [place] [address] Care Team Providers Care Dynamic Balancer Set Up Worker Name Role Phone Wilmer Ludwig) Richie Primary Care Prov ider Unavailable Encounter Details Date Type Department Care Team (Late st Contact Info) Description 05/01/2021 Home Care Visit DEFAULT HOME [address] [phone] Social History Tobacco Use Types [...] AM PDT Office Visit CARDIOLOGY [address] [place] [phone] Melanie Osuna (N.P.), N.P. [address] [place] [phone] documented as of this encounter Visit Diagnoses Not on filedocumented in this encounter Care Teams Dynamic Balancer Set Up Worker Relationship Specialty Start Date End Date Wilmer Ludwig M.D., Dilma. [address] [place] [address] PCP - General Family Practice 01/10/14 documented as of this encounter
--- OUTSIDE RECORDS SUMMARY | 2024-11-22 11:41 | XMS_ITS | Encounter Summary ---
Author Organization [facility] Address [address] [place] [address] Care Team Providers Care Salesperson Shoes Name Role Phone Wilmer Ludwig) Richie Primary Care Prov ider Unavailable Encounter Details Date Type Department Care Team ([facility] Contact Info) Description 05/04/2021 Home Care Visit DEFAULT [facility] [address] [phone] Social History Tobacco Use Types [...] Sign Reading Time Taken Comments Blood Pressure 135/76 05/04/2021 10:57 AM PDT Pulse 68 05/04/2021 10:57 AM PDT Temperature 37.2 C (99 F) 05/04/2021 10:57 AM PDT Respiratory Rate 18 05/04/2021 10:57 AM PDT Oxygen Saturation - - Inhaled Oxygen Concentration - - Weight - - Height - - Body Mass Index - - documented in this encounter Plan of Treatment Upcoming Encounters Date Type Department Care Team (Late Contact Info) Description 03/05/2025 10:00 AM PDT Office Visit CARDIOLOGY [address] [phone] Melanie Osuna (N.P.), N.P. [address] [place] [phone] documented as of this encounter Visit Diagnoses Not on filedocumented in this encounter Care Teams Salesperson Shoes Relationship Specialty Start Date End Date Wilmer Ludwig), Dilma. [address] [place] [address] PCP - General Family Practice 01/10/14 documented as of this encounter
--- OUTSIDE RECORDS SUMMARY | 2024-11-22 11:41 | XMS_ITS | Encounter Summary ---
Author Organization [facility] Address [address] [place] [place] [address] Care Team Providers Care Electrifier Operator Name Role Phone Wilmer Ludwig) Dilma. Primary Care Prov ider Unavailable Encounter Details Date Type Department Care Team (Late st Contact Info) Description 12/06/2021 Refill FAMILY PRACTICE [address] [phone] Wilmer Ludwig), M.D. [address] [place] [phone] Medications Social History Tobacco Use Types [...] PDT Office Visit CARDIOLOGY [address] [phone] Melanie Osuna (N.P.), N.P. [address] [place] [address] documented as of this encounter Visit Diagnoses Diagnosis HYPERLIPIDEMIA documented in this encounter Care Teams Electrifier Operator Relationship Specialty Start Date End Date Wilmer Ludwig), Dilma. [address] [place] [address] PCP - General Family Practice 01/10/14 documented as of this encounter
--- OUTSIDE RECORDS SUMMARY | 2024-11-22 11:41 | XMS_ITS | Encounter Summary ---
Author Organization [facility] Address [address] [facility] [place] [address] Care Team Providers Care Data Keyer Name Role Phone Wilmer Ludwig) Richie Primary Care Prov ider Unavailable Encounter Details Date Type Department Care Team (Late st Contact Info) Description 04/28/2021 Home Care Visit DEFAULT HOME [address] [phone] Social History Tobacco Use Types [...] AM PDT Office Visit CARDIOLOGY [address] [place] [phone] Melanie Osuna (N.P.), N.P. [address] [place] [phone] documented as of this encounter Visit Diagnoses Not on filedocumented in this encounter Care Teams Data Keyer Relationship Specialty Start Date End Date Wilmer Ludwig M.D., Dilma. [address] [place] [address] PCP - General Family Practice 01/10/14 documented as of this encounter
--- OUTSIDE RECORDS SUMMARY | 2024-11-22 11:41 | XMS_ITS | Encounter Summary ---
Author Organization [facility] Address [address] [place] [address] Care Team Providers Care Supervisor Pullet Farm Name Role Phone Wilmer Ludwig) Richie Primary Care Prov ider Unavailable Encounter Details Date Type Department Care Team (Late st Contact Info) Description 05/11/2021 Home Care Visit DEFAULT [facility] [address] [phone] Social History Tobacco Use Types [...] Reading Time Taken Comments Blood Pressure 140/80 05/11/2021 11:40 AM PST Pulse 84 05/11/2021 11:40 AM PST Temperature 36.2 C (97.2 F) 05/11/2021 11:40 AM PST Respiratory Rate 16 05/11/2021 11:40 AM PST Oxygen Saturation - - Inhaled Oxygen Concentration - - Weight - - Height - - Body Mass Index - - documented in this encounter Plan of Treatment Upcoming Encounters Date Type Department Care Team (Late st Contact Info) Description 03/05/2025 10:00 AM PDT Office Visit CARDIOLOGY [address] [place] [place] [phone] Melanie Osuna (N.P.), N.P. [address] [place] [phone] documented as of this encounter Visit Diagnoses Not on filedocumented in this encounter Home Health Visit - Care Plan Visit Details Visit Type - Discipline - Problems Problem Description Start Date Status Goals Interve ntions Code Status Disciplines: Physical Therapy 04/28/2021 Resolved on 05/11/2021 1 goal linked to scheduled/documen salome intervention Skin Integrity - Surgical Incisions/Wound s Disciplines: Physical Therapy Patient presents with surgical incision 04/28/2021 Resolved on 05/11/2021 1 goal linked to scheduled/documen salome intervention Post-Operative Total Joint Replacement Disciplines: Physical Therapy 04/28/2021 Resolved on 05/11/2021 1 goal linked to scheduled/documen salome intervention Goals Goal Associated Problem Outcome Goal Met? Visit Notes Code Status Remains Updated Description: Clinician will report code status changes throughout the plan of care Code Status Met Yes Surgical Incisions/Wounds Management Description: Patient's L Hip post-operative surgical site will progress through the stages of healing without complications throughout the plan of care Skin Integrity - Surgical Incisions/Wounds Progressing No Functional Mobility Description: Pt to improve bed mobility to Indep. Improve transfers; Bed, Chair Toilet, Tub, Shower, Car to Mod indep. Improve ambulation levels/stairs/uneven Distance 300' Level of Mod Indep with FWW/SPC by 05/08/2021 Post-Operative Total Joint Replacement Met Yes documented in this encounter Care Teams Supervisor Pullet Farm Relationship Specialty Start Date End Date Wilmer Ludwig), Dilma. [address] [place] [phone] PCP - General Family Practice 01/10/14 documented as of this encounter
--- OUTSIDE RECORDS SUMMARY | 2024-11-22 11:41 | XMS_ITS | Encounter Summary ---
Author Organization [facility] Address [address] [place] [address] Care Team Providers Care Onyx Chip Terrazzo Worker Name Role Phone Wilmer Ludwig) Dilma. Primary Care Prov ider Unavailable Encounter Details Date Type Department Care Team (Late st Contact Info) Description 01/10/2023 Refill FAMILY PRACTICE [address] [place] [phone] Wilmer Ludwig), M.D. [address] [place] [address] Medications Social History Tobacco Use [...] PDT Office Visit CARDIOLOGY [address] [phone] Melanie Osuna (N.P.), N.P. [address] [place] [address] documented as of this encounter Visit Diagnoses Diagnosis HYPERLIPIDEMIA documented in this encounter Care Teams Onyx Chip Terrazzo Worker Relationship Specialty Start Date End Date Wilmer Ludwig)Dilma. [address] [place] [address] PCP - General Family Practice 01/10/14 documented as of this encounter
--- OUTSIDE RECORDS SUMMARY | 2024-11-22 11:41 | XMS_ITS | Encounter Summary ---
Author Organization [facility] Address [address] [place] [address] Care Team Providers Care Talent Engineer Name Role Phone Wilmer Ludwig) Richie Primary Care Prov ider Unavailable Encounter Details Date Type Department Care Team (Late st Contact Info) Description 04/28/2021 Home Care Visit DEFAULT [facility] [address] [phone] Social History Tobacco Use Types [...] Sign Reading Time Taken Comments Blood Pressure 165/72 04/28/2021 6:30 AM PDT Pulse 72 04/28/2021 6:30 AM PDT Temperature 37.3 C (99.1 F) 04/28/2021 6:30 AM PDT Respiratory Rate 18 04/28/2021 6:30 AM PDT Oxygen Saturation - - Inhaled Oxygen Concentration - - Weight - - Height - - Body Mass Index - - documented in this encounter Plan of Treatment Upcoming Encounters Date Type Department Care Team (Late st Contact Info) Description 03/05/2025 10:00 AM PDT Office Visit CARDIOLOGY [address] [phone] Melanie Osuna (N.P.), N.P. [address] [place] [phone] documented as of this encounter Visit Diagnoses Not on filedocumented in this encounter Care Teams Talent Engineer Relationship Specialty Start Date End Date Wilmer Ludwig), Dilma. [address] [place] [address] PCP - General Family Practice 01/10/14 documented as of this encounter
--- OUTSIDE RECORDS SUMMARY | 2024-11-22 11:41 | XMS_ITS | Encounter Summary ---
Author Organization [facility] Address [address] [facility] [place] [address] Care Team Providers Care Disaster Recovery Specialist Name Role Phone Wilmer Ludwig) Richie Primary Care Prov ider Unavailable Encounter Details Date Type Department Care Team (Late st Contact Info) Description 05/12/2022 Orders Only SC[facility] IE E-VISITS ADMIN DEPT [address] [place] [address] Scal E-Visit, Provider (Richie), Richie [address] [place] [address] VACCINATION FOR SARS-COV-2 Social History Tobacco Use [...] AM PDT Office Visit CARDIOLOGY [address] [place] [address] Melanie Osuna (N.P.), N.P. [address] [place] [address] documented as of this encounter Visit Diagnoses Diagnosis VACCINATION FOR SARS-COV-2 documented in this encounter Care Teams Disaster Recovery Specialist Relationship Specialty Start Date End Date Wilmer Ludwig), Dilma. [address] [facility] [place] [address] PCP - General Family Practice 01/10/14 documented as of this encounter
--- OUTSIDE RECORDS SUMMARY | 2024-11-22 11:41 | XMS_ITS | Encounter Summary ---
Author Organization [facility] Address [address] [facility] [place] [address] Care Team Providers Care Senior Capital Markets Specialist Name Role Phone Wilmer Ludwig) Richie Primary Care Prov ider Unavailable Encounter Details Date Type Department Care Team (Late st Contact Info) Description 05/03/2024 Orders Only [facility] IE E-VISITS ADMIN DEPT [id number] [place] [address] Scal E-Visit, Provider (Richie)Richie [address] [place] [address] VACCINATION FOR SARS-COV-2 Social History Tobacco Use [...] AM PDT Office Visit CARDIOLOGY [address] [place] [address] Melanie Osuna (N.P.), N.P. [address] [place] [address] documented as of this encounter Visit Diagnoses Diagnosis VACCINATION FOR SARS-COV-2 documented in this encounter Care Teams Senior Capital Markets Specialist Relationship Specialty Start Date End Date Wilmer Ludwig), iDlma. [address] [facility] [address] PCP - General Family Practice 01/10/14 documented as of this encounter
--- OUTSIDE RECORDS SUMMARY | 2024-11-22 11:42 | XMS_ITS | Encounter Summary ---
Author Organization [facility] Address [address] [place] [place] [address] Care Team Providers Care Oncologist Name Role Phone Wilmer Ludwig) MTano. Primary Care Prov ider Unavailable Encounter Details Date Type Department Care Team (Late st Contact Info) Description 11/12/2024 Anticoagulation DEFAULT [facility] [address] [place] [address] Yisel Hutchinson (Pharm.D), PHARM.D. [address] [place] [phone] Social History Tobacco Use Types Packs/Day Years [...] as of this encounter Progress Notes * Yisel Hutchinson (Pharm.D), PHARM.D. - 11/12/2024 4:19 PM PDT Primary care physician: Wilmer Ludwig) Left message on Preferred Phone Number: (1) CP [phone] -ok lm S/O: INR 3.5 (H) 11/12/2024 Indications: Atrial Fibrillation (I48.91) Warfarin Tab (MG): 2mg Lavender INR Low Range: 2 - INR High Range: 3 Current warfarin dose: 2mg daily A/P: INR supratherapeutic One Time Dose: 0mg on 11/12 Warfarin Dosing Instructions: decr 2mg daily exc 1mg Mon/Fri Follow up date: 11/21/24 - has outside lab letter Patient to call for any questions, missed [...] any signs or symptoms of clotting/stroke. Electronically Signed by: YISEL HUTCHINSON PHARMD 11/12/2024 4:22 PM documented in this encounter Plan of Treatment Upcoming Encounters Date Type Department Care Team (Late st Contact Info) Description 03/05/2025 10:00 AM PDT Office Visit CARDIOLOGY [address] [phone] Melanie Osuna (N.P.), N.P. [address] [place] [address] documented as of this encounter Visit Diagnoses Not on filedocumented in this encounter Care Teams Oncologist Relationship Specialty Start Date End Date Wilmer Ludwig), Richie [address] [place] [phone] PCP - General Family Practice 01/10/14 documented as of this encounter
--- OUTSIDE RECORDS SUMMARY | 2024-11-22 11:42 | XMS_ITS | Clinical Summary ---
Author Organization [facility] Address [address] [place] [address] Care Team Providers Care Manager Site Name Role Phone Wilmer Ludwig M.D., M.D. Primary Care Prov ider Unavailable Source Comments NOTE: The information displayed by Care Everywhere is extracted from the complete medical record and may not identify all current or past patient conditions.[facility] Allergies Active Allergy Reactions Criticality Noted Date Comments Cefuroxime Axetil Skin Rash and/or Hives Low 06/08/2017 Noted with antibiotics [place] in [place]. [place]ed with antibiotics given in [place]. Codeine And Opiate Derivatives Skin Rash and/or Hives 07/22/2011 Meperidine Hcl High 08/29/2011 Metronidazole Other 10/20/2024 Nausea, GI upset Hydrochlorothiazide 12/19/2013 Hyponatremia in setting of HCTZ Hyponatremia in setting of HCTZ Meperidine Skin Rash and/or Hives High 08/29/2011 Non-Steroidal Anti-Inflammatory Agents High 02/24/2017 [id number] Heart Failure. Exception to this NSAID intolerance is aspirin 81-325mg daily and topical or ophthalmic nsaids' [id number] Heart Failure. Exception to this NSAID intolerance is aspirin 81-325mg daily and topical or ophthalmic nsaids' Oxycodone-Acetaminophen Skin Rash and/or Hives 07/22/2011 Oxycodone-Aspirin Skin Rash and/or Hives 08/18/2011 Penicillins Class Skin Rash and/or Hives 07/22/2011 Sulfa (Sulfonamide Antibiotics) Skin Rash and/or Hives Low 08/18/2011 Medications Medication Sig Dispensed Refills Start Date End Date Status Latanoprost (XALATAN) 0.005 % Opht DropIndications: BILAT PRIMARY OPEN ANGLE GLAUCOMA Instill 1 Drop in both eyes daily at bedtime for Glaucoma 10 mL 12 4 026 Active Dorzolamide-Hemal lol (COSOPT) 22.3-6.8 mg/mL Opht DropIndications: BILAT PRIMARY OPEN ANGLE GLAUCOMA Instill 1 Drop in both eyes 2 times a day 20 mL 11 4 026 Active dilTIAZem (CARDIZEM) 30 mg Oral TabIndications:A TRIAL FIBRILLATION, UNSPECIFIED Take 1 tablet by mouth up to 3 times a day as needed atrial fibrillation episodes 100 tablet 3 4 026 Active cloNIDine (CATAPRES-TTS 1) 0.1 mg/24 hr TD Weekly PatchIndications :HTN (HYPERTENSION) Apply 1 Patch to skin every 7 days . Remove old patch before applying the new one 12 Patch 4 4 Active Atorvastatin (LIPITOR) 10 mg Oral TabIndications:H YPERLIPIDEMIA Take 1 tablet by mouth daily to lower cholesterol and keep arteries open 100 tablet 3 5 027 Active Warfarin 2 mg Oral TabIndications:A NTICOAGULATION MONITORING, INR 2.0-3.0 Take by mouth as directed by Anticoagulation clinic 150 tablet 5 027 Active dilTIAZem (CARDIZEM CD) 120 mg Oral 24hr SR CapIndications:A TRIAL FIBRILLATION, UNSPECIFIED Take 1 capsule by mouth 2 times a day 200 capsule 2 5 027 Active Carvedilol (COREG) 12.5 mg Oral TabIndications:A TRIAL FIBRILLATION W RAPID VENTRICULAR RESPONSE Take 1 tablet by mouth 2 times a day 100 tablet 3 5 027 Active Amiodarone (PACERONE) 200 mg Oral TabIndications:A TRIAL FIBRILLATION W RAPID VENTRICULAR RESPONSE Take 2 tablets by mouth 2 times a day for 7 days, THEN 1 tablet daily for 60 days. 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 11/16/2024 SUPRAVENTRICULAR TACHYCARDIA, NONSUSTAINED 10/14 OSTEOARTHRITIS OF RIGHT HIP 08/08/2024 ACQUIRED CEREBRAL ATROPHY 06/20/2023 Overview (06/20/2023): CT Head 05/24/16 OSTEOARTHRITIS OF LEFT FOOT 04/25/2023 ATYPICAL CHEST PAIN 08/26/2022 SHORTNESS OF BREATH 08/26/2022 BILAT OPEN ANGLE GLAUCOMA 08/12/2022 RECURRENT UTI 08/05/2021 ANEMIA 11/06/2020 OSTEOARTHRITIS OF RIGHT FOOT [address], UNSPECIFIED TYPE 08/14/2019 NOT CURRENT SMOKER 04/11/2018 ELEVATED TROPONIN I 04/10/2018 OSTEOARTHRITIS OF LEFT HIP 11/02/2017 CKD STAGE 3A (GFR 45-59) 08/01/2017 BILAT PRIMARY OPEN ANGLE GLAUCOMA 05/17/2016 ANTICOAGULATION MONITORING, INR 2.0-3.0 10/23/19 16 Overview (10/23/2015): IP referral for afib ATRIAL FIBRILLATION, UNSPECIFIED 10/21/2015 OSTEOARTHRITIS OF RIGHT KNEE 04/15/2015 DIASTOLIC HEART FAILURE, CHRONIC (HFPEF) 015 SENILE PURPURA 07/25/2014 OSTEOARTHRITIS OF LEFT KNEE 01/17/2014 OVERWEIGHT 11/14/2013 PREDIABETES 08/12/2013 ATHEROSCLEROSIS AORTA 01/04/2013 BILATERAL RENAL ARTERY STENOSIS 01/04/2013 Overview (01/04/2013): Renal ultrasound 11/02/12 from [place]: 1. Unable to see the origin of the left renal artery due to calcification. There are elevated velocities in the left renal artery suggestion a hemodynamically significant stenosis. If clinically indicated, an angiogram with intent to treat could be considered. 2. Normal ultrasound appearance of the kidneys, bilaterally. Cardiac MRI performed on 11/02/12 in [place]: indication: severe Hypertension with suspected severe concentric [...] artery stenosis, likely moderate renal artery stenosis. SCREENING COLONOSCOPY 02/29/2012 Overview (02/29/2012): 2012 COLON POLYP 02/29/2012 Overview (03/19/2012): Tubular adenoma polypectomy 02/2012 DIVERTICULOSIS OF COLON 02/29/2012 OSTEOPOROSIS 12/29/2011 Overview (12/29/2011): 08-19-2011 DXA T-score: -1.2 (left neck) Z-score: 0.4 FRAX Scores are not Elevated VITAMIN D DEFICIENCY 09/01/2011 HX OF HYSTERECTOMY, TOTAL 08/18/2011 FHX OF BREAST CANCER 08/18/2011 Bilat glaucoma. 08/18/2011 ALLERGIC RHINITIS 08/18/2011 HTN 07/15/2011 Overview (01/04/2013): Discontinued mazxide during hospitalization Last Admit Date: 04/24/2012 due to Orthostatic hypotension - started metoprolol. Metoprolol changed to carvedilol 10/2012 while in [place] for uncontrolled Hypertension Start hydrochlorothiazide 12.5 mg [...] stenosis, likely moderate renal artery stenosis. HYPERLIPIDEMIA 07/15/2011 MAMMOGRAPHY DONE OUTSIDE IN 2010 Overview (08/18/2011): 05/2011 Resolved Problems Problem Noted Date Diagnosed Date Resolved Date HYPOKALEMIA 04/10/2018 10/22/2024 OSTEOARTHRITIS OF LEFT HIP 10/25/2016 1 OSTEOARTHRITIS 10/18/2016 10/25/2016 ATRIAL FIBRILLATION W RAPID VENTRICULAR RESPONSE 07/30/2016 10/21/2024 HYPONATREMIA 01/09/2014 04/15/2015 HX OF CHF 07/29/2013 04/15/2015 LEFT PIRIFORMIS SYNDROME 07/05/2013 SKIN LESION 07/05/2013 04/15/2015 NOT CURRENT SMOKER 04/24/2013 8 HX OF ANEMIA 04/26/2012 04/15/2015 Overview (08/01/2012): Negative Esophagogastroduodenoscopy, Colonoscopy and small bowel series DIZZINESS 04/26/2012 07/05/2013 SYNCOPE 04/24/2012 07/05/2013 HEAD LACERATION 04/24/2012 07/05/2013 ARTHRITIS OF RIGHT KNEE 03/23/201212/2016 FAMILY STRESS 03/19/2012 04/15/2015 BLOOD IN STOOL 09/16/2011 03/19/2012 SCREENING FOR COLON CANCER 09/16/2011 0 03/19/2012 DUPUYTRENS CONTRACTURE. 08/18/201104/02 Encounters Date Type Department Care Team Description 11/21/2024 Anticoagulation DEFAULT [facility] [id number] [facility] [place] [address] Noah iDll (Pharm.D), PHARM.D. 11/15/2024 11:40 AM PDT Telephone Appointment Visit [facility] [address] [place] [address] Wilmer Ludwig), M.D. ATRIAL FIBRILLATION, UNSPECIFIED (Primary Dx); HTN; HYPERLIPIDEMIA; PREDIABETES; OSTEOPOROSIS; ATHEROSCLEROSIS AORTA; OSTEOARTHRITIS OF LEFT KNEE; SENILE PURPURA; DIASTOLIC HEART FAILURE, CHRONIC (HFPEF); BILAT PRIMARY OPEN ANGLE GLAUCOMA; OSTEOARTHRITIS OF LEFT HIP; HX OF CT, UNSPECIFIED TYPE; CKD STAGE 3A (GFR 45-59); SUPRAVENTRICULAR TACHYCARDIA, NONSUSTAINED; ANTICOAGULATION MONITORING, INR 2.0-3.0; ANEMIA 11/12/2024 Anticoagulation DEFAULT [facility] [place] [address] Juventino Hutchinson (Pharm.D), PHARM.D. 11/06/2024 3:00 PM PDT Office Visit CARDIOLOGY [address] [place] [address] Melanie Ward (N.P.), N.P. ATRIAL FIBRILLATION, PAROXYSMAL; HTN; HYPERLIPIDEMIA; PRESENCE OF CARDIAC PACEMAKER 11/05/2024 Anticoagulation [facility] [place] [address] Noah Dill (Pharm.D), PHARM.D. 11/04/2024 Telephone [facility] [address] [place] [address] Wilmer Ludwig), MLamarD. TEST RESULTS 11/01/2024 Call Center Telephon e Encounter CARDIOLOGY [facility] [place] [address] Francheska Lares M.D., MTano. APPOINTMENT REQUEST, ROUTINE ([facility], CARDIOLOGY) 10/30/2024 Anticoagulation [facility] [place] [address] Noah Dill (Pharm.D), PHARM.D. 10/30/2024 Telephone [facility] [address] [place] [address] Tessy Kerr), MTano. 10/29/2024 Telephone [facility] [place] [address] Shante Anglin (Pharm.D), PHARM.D. PHARMACY ANTICOAGULATION CLINIC SERVICE 10/26/2024 10:10 AM PDT Telephone Appointment Visit [facility] [address] [place] [address] Tessy Kerr), MLamarD. AFTERCARE FOLLOWING HOSPITALIZATION (Primary Dx); ANEMIA; ATRIAL FIBRILLATION W RAPID VENTRICULAR RESPONSE 10/23/2024 Anticoagulation DEFAULT [facility] [address] [place] [phone] Noah Dill (Pharm.D), PHARM.D. 10/22/2024 Transitional Care Mgmnt-Telephone CONTINUING CARE [facility] DEFAULT [address] [place] [phone] Uche Hensley (R.N.), R.N. HOSPITAL FOLLOW UP (Transitional Care Management / Post Hospital Discharge Call - Continuing Care Services /) 10/22/2024 Anticoagulation DEFAULT [facility] [address] [place] [phone] Noah Dill (Pharm.D), PHARM.D. 10/14/2024 10:54 AM PDT - 10/21/2024 5:11 PM PDT Hospital Encounter [facility] [address] [place] [phone] Fariha Hermosillo), MCatalino Qiu M.D., MEder Le (D.O.), D.ORegine Hess (D.O.), D.OLamar ATRIAL FIBRILLATION W RAPID VENTRICULAR RESPONSE Discharge Disposition: Home or Self Care. 10/14/2024 10:00 AM PDT Office Visit URGENT CARE - [address] [address] [facility]Ashok Diaz (P.A.), P.A. ABDOMINAL PAIN (Primary Dx) 10/08/2024 10:45 AM PDT Allied Health/Nurse Visit OPHTHALMOLOGY [address] [place] [phone] Genna Choudharyun SCREENING 10/08/2024 10:00 AM PDT Allied Health/Nurse Visit OPHTHALMOLOGY [address] [place] [address] Patti Ortizasha Selina VISUAL FIELD TEST 09/26/2024 Call Center Telephon e Encounter O[place]TH[place] [address] Juancarlos Arboleda M.D., MTano. MEMBER INITIATED (MESSAGE CENTER CALL) 09/25/2024 Anticoagulation [place] [address] Noah Dill (Pharm.D), PHARM.D. 09/24/2024 9:40 AM PDT Allied Health/Nurse Visit [facility] [address] [place] [address] Barby Marti (L.V.N.), L.V.N. 09/11/2024 Anticoagulation DEFAULT [facility] [place] [address] Noah Dill (Pharm.D), PHARM.D. 09/11/2024 Telephone [facility] [address] [place] [address] Wilmer Ludwig), MLamarD. TEST RESULTS 09/10/2024 1:40 PM PDT Allied Health/Nurse Visit [facility] [address] [place] [address] Jane Gu (R.NLamar), R.N. 09/10/2024 Orders Only [facility]PLETE [facility] [phone] Wilmer Ludwig), MTano. ABNL KIDNEY FUNCTION STUDY 08/28/2024 Anticoagulation DEFAULT [facility] [address] [place] [address] Noah Dill (Pharm.D), PHARM.D. 08/27/2024 10:40 AM PST Ancillary Procedure CARDIOLOGY [address] [place] [address] PRESENCE OF CARDIAC PACEMAKER from Last 3 Months Immunizations Name Administration Dates Next Due COVID-19 mRNA LNP-S, PF (MOD KYLER),50 MCG/0.25 mL 11/09/2021,06/09/2021 COVID-19 mRNA LNP-S, PF (Moderna) 08/18/2020,08/20/2020 DT ped (Diphtheria,Tetanus) 09/05/1995 INF (Influenza) unspecified formulation 03/03/2017 INFS 6mos-adult (Flulaval quadrivalent) (influenza) 04/05/2018 INFS Pres Free (quadrivalent ) (influenza) 03/22/2016,03/10/2015,05/20/2014,04/11,03/19/2012,05/03/2011,01/31/2011 INFS pres free 65 yrs and ov er high dose (Fluzone quadrivalent 04/14/2023,04/06/2022,04/13/2021,04/02 INFS pres free 65 yrs and ov er high dose (Fluzone trivalent) (influenza) 03/11/2024 INFS pres free 65yrs and ove r (Fluad trivalent) (influenza) 03/08/2019 INFS pres free 6mos-adult (F luarix quadrivalent) (influenza) 03/22/2016 INFs (Influenza split virus ). 03/19/2012,2010,01/31/2011 INFs 4yrs and over (FLUVIRIN ) (Influenza) 03/10/2015,05/20/2014,04/11/2013 PCV13 (GFCBWMS04) (Pneumococ deepali conjugate, 13 valent) 03/10/2015 PPSV23 (Pneumococcal polysaccharide) 07/15/2011 Tdap (ADACEL) (Tetanus, diph theria, acellular pertussis) 08/12/2022,08/01/2012 Tdap (Tetanus, diphtheria, a cellular pertussis) 08/01/2012 ZOS (Herpes zoster recombina nt) Shingrix 08/06/2019,09/25/2018 ZOS (Zostervirus live, shingles) 08/01/2012 Family History Medical History Relation Comments Diabetes Grandmother Heart Disease Mother Father Hypertension Mother Stroke Mother Father Breast Cancer Sister double masectomy Colon Cancer None Relation Status Comments Grandmother Mother Sister Social History Tobacco Use Types Packs/Day Years [...] on file Sexual Orientation Not on file Last Filed Vital Signs Vital Sign Reading Time Taken Comments Blood Pressure 161/56 11/06/2024 2:51 PM PDT Pulse 62 11/06/2024 2:51 PM PDT Temperature 36.7 C (98 F) 11/06/2024 2:41 PM PDT Respiratory Rate 20 10/21/2024 3:44 PM PDT Oxygen Saturation 96% 10/21/2024 3:44 PM PDT Inhaled Oxygen Concentration - - Weight 64.1 kg (141 lb 5 oz) 10/19/2024 5:00 AM PDT Height 160 cm (5' 3) 11/06/2024 2:41 PM PDT Body Mass Index 24.26 10/19/2024 5:00 AM PDT Plan of Treatment Upcoming Encounters Date Type Department Care Team (Late st Contact Info) Description 03/05/2025 10:00 AM PDT Office Visit CARDIOLOGY [address] [place] [phone] Melanie Ward (N.P.), N.P. [address] [place] [address] Health Maintenance Due Date Last Done Comments IMM RSV (75 YRS AND OLDER) ( 1 - 1-dose 75+ series) 2019 IMM COVID-19 (6 MO AND OLDER ) ( season) 2024 11/09/2021, 06/09/2021, 08/18/2020, Additional history exists IMM DTAP,TDAP,TD (42 DAYS-12 0 YRS) (5 - Td or Tdap) 08/12/2032 08/12/2022, 08/01/2012, 08/01/2012, Additional history exists IMM PNEUMOCOCCAL Completed 03/10/2015, 07/15/2011 IMM ZOSTER (19 YRS AND OLDER) Completed , 09/25/2018, 08/01/2012 IMM INFLUENZA (6 MO AND OLDER) Completed 0 03/11/2024, 04/14/2023, 04/06/2022, Additional history exists Medical Devices Implanted Type Area Transportation Manager Device Identifier Shelf Expiration Date Model / Serial / Lot Pacemaker Cardiac .75cm 4.45x5.88cm Accolade Mri Latitude Nxt Pacesafe Easyview 2 Chmbr Is - [id number] Implanted:Qt y: 1 on 05/23/2023 by Fanny Jade)Richie Cardiac Implant N/A: Chest BSCI - CARDIAC RHYTHM MGMT [id number] 03/28/2025 [id number] / [id number] / NA Lead Straight Ingevity+ Af Is1 7841 52cm Red - [id number] Implanted:Qt y: 1 on 05/23/2023 by Fanny Jade)Richie Cardiac Implant Right: Ventricle BSCI - CARDIAC RHYTHM MGMT 04/26/2025 [id number] / [id number] / NA Lead Straight Ingevity+ Af Is1 7840 45cm White - [id number] Implanted:Qt y: 1 on 05/23/2023 by Fanny Jade)Richie Cardiac Implant Right: Atrium BSCI - CARDIAC RHYTHM MGMT 04/16/2025 [id number] / [id number] / NA Lens Iol +18.5 Sydney Biconvex 13mm 6mm Post Chmbr 1 Pc Foldable Uv Absorb Modif L - [id number] Implanted:Qt y: 1 on 07/17/2014 by Juancarlos Arboleda M.D., M.D. Eye Right: Eye [employer] [id number] 04/01/2019 SN60 [id number] / [id number] / Lens Iol +18.5 Sydney Biconvex 13mm 6mm Post Chmbr 1 Pc Foldable Uv Absorb Modif L - [id number] Implanted:Qt y: 1 on 08/12/2014 by Juancarlos Arboleda M.D., M.D. Eye Left: Eye [employer] [id number] 10/30/2018 SN60 [id number] / [id number] / Liner Acetabular Altrx Neutral 54mm 36mm Hip - [id number] Implanted:Qt y: 1 on 04/28/2021 by David Palacios)Richie Orthopedic Left: Hip [employer] [id number] 11/30/2025 [id number] / / [id number] Acetabular 54mm [place] Sector Series Hip - [id number] Implanted:Qt y: 1 on 04/28/2021 by David Palacios)Richie Orthopedic Left: Hip [employer] [id number] 11/30/2030 [id number] / / [id number] Stem Fem 160mm 8 06/15 High Offset Taper [place] Hip - [id number] Implanted:Qt y: 1 on 04/28/2021 by David Palacios)Richie Orthopedic Left: Hip [employer] [id number] 01/30/2030 [id number] / / [id number] Head Fem +1.5mm Thk6 Mil 06/15 Taper 36mm Hip Cementless Ceramic Articul/Jose - [id number] Implanted:Qt y: 1 on 04/28/2021 by David Palacios)Richie Orthopedic Left: Hip [employer] [id number] 10/30/2025 [id number] / / [id number] Screw Bone 6.5mm 25mm [place] Dome 4 Point Cut Flute Hip Acetabular Cancell Self Tap Hex - [id number] Implanted:Qt y: 1 on 04/28/2021 by David Palacios)Richie Screws/Plate s/Wires Left: Hip [employer] [id number] 03/02/2031 [id number] / / [id number] Procedures Procedure Name Priority Date/Time Associated Diagnosis Comments INR Routine 11/12/2024 8:34 AM PDT ANTICOAGULATION MONITORING, INR 2.0-3.0 INR Routine 11/04/2024 8:41 AM PDT ANTICOAGULATION MONITORING, INR 2.0-3.0 POTASSIUM Routine 11/04/2024 8:41 AM PDT HYPOKALEMIA INR Routine 10/29/2024 12:10 PM PDT ANTICOAGULATION MONITORING, INR 2.0-3.0 CREATININE Routine 10/29/2024 12:10 PM PDT ANEMIA AFTERCARE FOLLOWING HOSPITALIZATION CBC NO DIFFERENTIAL Routine 10/29/2024 12:10 PM PDT ANEMIA AFTERCARE FOLLOWING HOSPITALIZATION ELECTROLYTE PANEL (NA, K, CL, CO2) Routine 10/29/2024 12:10 PM PDT AFTERCARE FOLLOWING HOSPITALIZATION WBC AUTO DIFF STAT 10/22/2024 1:16 PM PDT INR Routine 10/22/2024 1:16 PM PDT ANTICOAGULATION MONITORING, INR 2.0-3.0 LIVER FUNCTION PANEL (TBILI, ALT, ALKP) STAT 10/22/2024 1:16 PM PDT ABDOMINAL PAIN LIPASE STAT 10/22/2024 1:16 PM PDT ABDOMINAL PAIN BUN STAT 10/22/2024 1:16 PM PDT ABDOMINAL PAIN CBC W AUTOMATED DIFFERENTIAL STAT 10/22/2024 1:16 PM PDT ABDOMINAL PAIN GLUCOSE STAT 10/22/2024 1:16 PM PDT ABDOMINAL PAIN ELECTROLYTE PANEL (NA, K, CL, CO2) STAT 10/22/2024 1:16 PM PDT ABDOMINAL PAIN CREATININE STAT 10/22/2024 1:16 PM PDT ABDOMINAL PAIN B-TYPE NATRIURETIC PEPTIDE (BNP) Routine 10/22/2024 1:16 PM PDT ABDOMINAL PAIN WBC AUTO DIFF Routine 10/21/2024 4:37 AM PDT PHOSPHATE Routine 10/21/2024 4:37 AM PDT ELECTROLYTE PANEL (NA, K, CL, CO2, ANION GAP) Timing Critical 10/21/2024 4:37 AM PDT MAGNESIUM Routine 10/21/2024 4:37 AM PDT INR Routine 10/21/2024 4:37 AM PDT GLUCOSE, FASTING Routine 10/21/2024 4:37 AM PDT CREATININE Routine 10/21/2024 4:37 AM PDT BUN Routine 10/21/2024 4:37 AM PDT ELECTROLYTE PANEL (NA, K, CL, CO2, ANION GAP) Routine 10/21/2024 4:37 AM PDT CBC W AUTOMATED DIFFERENTIAL Routine 10/21/2024 4:37 AM PDT ELECTROLYTE PANEL (NA, K, CL, CO2, ANION GAP) Timing Critical 10/20/2024 11:27 PM PDT OSMOLALITY, URINE STAT 10/20/2024 9:59 PM PDT SODIUM, URINE Routine 10/20/2024 9:59 PM PDT ELECTROLYTE PANEL (NA, K, CL, CO2, ANION GAP) Timing Critical 10/20/2024 5:10 PM PDT ELECTROLYTE PANEL (NA, K, CL, CO2, ANION GAP) Timing Critical 10/20/2024 12:07 PM PDT OSMOLALITY, SERUM Routine 10/20/2024 12:07 PM PDT MAGNESIUM Routine 10/20/2024 4:59 AM PDT INR Routine 10/20/2024 4:59 AM PDT GLUCOSE, FASTING Routine 10/20/2024 4:59 AM PDT CREATININE Routine 10/20/2024 4:59 AM PDT BUN Routine 10/20/2024 4:59 AM PDT ELECTROLYTE PANEL (NA, K, CL, CO2, ANION GAP) Routine 10/20/2024 4:59 AM PDT WBC AUTO DIFF Routine 10/20/2024 4:56 AM PDT CBC W AUTOMATED DIFFERENTIAL Routine 10/20/2024 4:56 AM PDT XR CHEST 1 VIEW STAT 10/19/2024 4:34 PM PDT ELECTROLYTE PANEL (NA, K, CL, CO2, ANION GAP) Routine 10/19/2024 1:56 PM PDT WBC AUTO DIFF Routine 10/19/2024 4:53 AM PDT MAGNESIUM Routine 10/19/2024 4:53 AM PDT INR Routine 10/19/2024 4:53 AM PDT GLUCOSE, FASTING Routine 10/19/2024 4:53 AM PDT CREATININE Routine 10/19/2024 4:53 AM PDT BUN Routine 10/19/2024 4:53 AM PDT ELECTROLYTE PANEL (NA, K, CL, CO2, ANION GAP) Routine 10/19/2024 4:53 AM PDT CBC W AUTOMATED DIFFERENTIAL Routine 10/19/2024 4:53 AM PDT WBC AUTO DIFF Routine 10/18/2024 4:56 AM PDT MAGNESIUM Routine 10/18/2024 4:56 AM PDT INR Routine 10/18/2024 4:56 AM PDT GLUCOSE, FASTING Routine 10/18/2024 4:56 AM PDT CREATININE Routine 10/18/2024 4:56 AM PDT BUN Routine 10/18/2024 4:56 AM PDT ELECTROLYTE PANEL (NA, K, CL, CO2, ANION GAP) Routine 10/18/2024 4:56 AM PDT CBC W AUTOMATED DIFFERENTIAL Routine 10/18/2024 4:56 AM PDT POTASSIUM Routine 10/17/2024 1:53 PM PDT MAGNESIUM Routine 10/17/2024 1:53 PM PDT MAGNESIUM STAT 10/17/2024 12:01 PM PDT MAGNESIUM Routine 10/17/2024 5:13 AM PDT WBC AUTO DIFF Routine 10/17/2024 5:13 AM PDT INR Routine 10/17/2024 5:13 AM PDT GLUCOSE, FASTING Routine 10/17/2024 5:13 AM PDT CREATININE Routine 10/17/2024 5:13 AM PDT BUN Routine 10/17/2024 5:13 AM PDT ELECTROLYTE PANEL (NA, K, CL, CO2, ANION GAP) Routine 10/17/2024 5:13 AM PDT CBC W AUTOMATED DIFFERENTIAL Routine 10/17/2024 5:13 AM PDT LEGIONELLA PNEUMOPHILA ANTIGEN, URINE, IMMUNOASSAY Routine 10/16/2024 7:37 PM PDT STREPTOCOCCUS PNEUMONIAE ANTIGEN, URINE, IMMUNOCHROMATOGRAPHIC ASSAY Routine 10/16/2024 7:37 PM PDT POTASSIUM Timing Critical 10/16/2024 1:19 PM PDT SARS-COV-2 (COVID-19), INFLUENZA A + B, MULTIPLEX STACY Routine 10/16/2024 11:45 AM PDT B-TYPE NATRIURETIC PEPTIDE (BNP) Routine 10/16/2024 5:48 AM PDT WBC AUTO DIFF Routine 10/16/2024 5:48 AM PDT INR Routine 10/16/2024 5:48 AM PDT GLUCOSE, FASTING Routine 10/16/2024 5:48 AM PDT CREATININE Routine 10/16/2024 5:48 AM PDT BUN Routine 10/16/2024 5:48 AM PDT ELECTROLYTE PANEL (NA, K, CL, CO2, ANION GAP) Routine 10/16/2024 5:48 AM PDT CBC W AUTOMATED DIFFERENTIAL Routine 10/16/2024 5:48 AM PDT POTASSIUM Timing Critical 10/15/2024 2:48 PM PDT CLOSTRIDIUM DIFFICILE GDH AG, TOXINS A, B W REFLEX TO PCR Routine 10/15/2024 10:11 AM PDT UNFRACTIONATED HEPARIN, ANTI FACTOR XA Timing Critical 10/15/2024 8:12 AM PDT HEPARIN THERAPY, APTT Timing Critical 10/15/2024 8:12 AM PDT WBC AUTO DIFF Routine 10/15/2024 5:57 AM PDT INR Routine 10/15/2024 5:57 AM PDT GLUCOSE, FASTING Routine 10/15/2024 5:57 AM PDT ALBUMIN Routine 10/15/2024 5:57 AM PDT MAGNESIUM Routine 10/15/2024 5:57 AM PDT CREATININE Routine 10/15/2024 5:57 AM PDT BUN Routine 10/15/2024 5:57 AM PDT ELECTROLYTE PANEL (NA, K, CL, CO2, ANION GAP) Routine 10/15/2024 5:57 AM PDT CBC W AUTOMATED DIFFERENTIAL Routine 10/15/2024 5:57 AM PDT HEPARIN THERAPY, APTT Timing Critical 10/14/2024 10:54 PM PDT UNFRACTIONATED HEPARIN, ANTI FACTOR XA Timing Critical 10/14/2024 10:54 PM PDT BACTERIAL GI PANEL (SALMONELLA, SHIGELLA/EIEC, CAMPYLOBACTER, SHIGA TOXIN DNA), STOOL, MULTIPLEX PCR Routine 10/14/2024 10:38 PM PDT BLOOD CULTURE Timing Critical 10/14/2024 4:14 PM PDT INR STAT 10/14/2024 4:14 PM PDT BLOOD CULTURE Timing Critical 10/14/2024 3:55 PM PDT TROPONIN I, HIGH SENSITIVITY STAT 10/14/2024 3:[address] ABD AND PELVIS NO CONTRAST STAT 10/14/2024 3:26 PM PDT TRANSTHORACIC ECHO (TTE) LIMITED, CV STAT 10/14/2024 3:23 PM PDT PHOSPHATE STAT 10/14/2024 2:04 PM PDT MAGNESIUM STAT 10/14/2024 2:04 PM PDT CALCIUM STAT 10/14/2024 2:04 PM PDT LACTIC ACID, BLOOD Timing Critical 10/14/2024 2:04 PM PDT XR CHEST 1 VIEW STAT 10/14/2024 11:51 AM PDT APTT STAT 10/14/2024 11:06 AM PDT INR STAT 10/14/2024 11:06 AM PDT WBC AUTO DIFF STAT 10/14/2024 11:06 AM PDT B-TYPE NATRIURETIC PEPTIDE (BNP) STAT 10/14/2024 11:06 AM PDT LACTIC ACID W REFLEX TO REPEAT STAT 10/14/2024 11:06 AM PDT TROPONIN I, HIGH SENSITIVITY STAT 10/14/2024 11:06 AM PDT ALKALINE PHOSPHATASE STAT 10/14/2024 11:06 AM PDT BILIRUBIN, DIRECT STAT 10/14/2024 11:06 AM PDT BILIRUBIN, TOTAL STAT 10/14/2024 11:06 AM PDT AST STAT 10/14/2024 11:06 AM PDT ALT STAT 10/14/2024 11:06 AM PDT LIPASE STAT 10/14/2024 11:06 AM PDT GLUCOSE STAT 10/14/2024 11:06 AM PDT CREATININE STAT 10/14/2024 11:06 AM PDT BUN STAT 10/14/2024 11:06 AM PDT ELECTROLYTE PANEL (NA, K, CL, CO2, ANION GAP) STAT 10/14/2024 11:06 AM PDT CBC W AUTOMATED DIFFERENTIAL STAT 10/14/2024 11:06 AM PDT EKG 12 OR MORE LEADS W INT & RPT STAT 10/14/2024 10:30 AM PDT ABDOMINAL PAIN URINALYSIS, DIPSTICK, POCT Routine 10/14 10:11 AM PDT ABDOMINAL PAIN INR Routine 09/24/2024 9:58 AM PDT ANTICOAGULATION MONITORING, INR 2.0-3.0 POTASSIUM Routine 09/24/2024 9:58 AM PDT SCREENING CREATININE Routine 09/10/2024 11:56 AM PDT [facility] KIDNEY FUNCTION STUDY SODIUM AND POTASSIUM Routine 09/10/2024 11:56 AM PDT [facility] KIDNEY FUNCTION STUDY INR Routine 09/10/2024 11:56 AM PDT ANTICOAGULATION MONITORING, INR 2.0-3.0 INR Routine 08/27/2024 11:20 AM PST ANTICOAGULATION MONITORING, INR 2.0-3.0 CARDIAC DEVICE CHECK, IN CLINIC, PACEMAKER DUAL CHAMBER W PROGRAMMING, CV Routine 08/27/2024 11:01 AM PST PRESENCE OF CARDIAC PACEMAKER from Last 3 Months Results * (ABNORMAL) INR (11/12/2024 8:34 AM PDT) Only the most recent of16 resultswithin the time period is included. PT INR 3.5(H) 0.8 - 1.2 [facility] BLOOD / Unknown 11/12/2024 8 :34 AM PDT Narrative [facility] - 11/12/2024 12:42 PM PDT CH[facility]IS ACCN: [id number] Juventino (Pharm.D) Jasper PHARM.DLamar COAGULATION Performing Organization Address City/[facility]/ZIP Co de Phone Number [facility] [address] [place] [address] * POTASSIUM (11/04/2024 8:41 AM PDT) Only the most recent of5 resultswithin the time period is included. POTASSIUM 4.0 3.5 - 5.1 mEq/L [facility], [facility] Comment: Please review results carefully for any changes to reference ranges (indicated by R superscript). Deployment of new chemistry analyzers is occurring across [facility] through 2026. BLOOD / Unknown 11/04/2024 8 :41 AM PDT Narrative [facility] - 11/04/2024 3:11 PM PDT [facility] ACCN: [id number] Wilmer Peralta) Oziel Quiroz SERUM CHEM ISTRY Performing Organization Address City/[facility]/ZIP Co de Phone Number [facility] [address] [place] [address] * CREATININE (10/29/2024 12:10 PM PDT) Only the most recent of11 resultswithin the time period is included. CREATININE 0.87 0.57 - 1.11 mg/dL [facility], [facility] Comment: Please review results carefully for any changes to reference ranges (indicated by R superscript). Deployment of new chemistry analyzers is occurring across [facility] through 2026. EGFR, CREATININE-BASED FORMULA (CKD-EPI 2020) 67 >=60 mL/min/BSA [facility], [facility] Comment: GFR estimate is by the CKD-EPI [...] Unknown 10/29/2024 1 2:10 PM PDT Narrative [facility], [facility] - 10/30/2024 2:29 AM PDT [facility] ACCN: [id number] Tessy Peralta) Usha Quiroz SERUM CH EMISTRY [facility], [facility] [address] [place] [address] * (ABNORMAL) ELECTROLYTE PANEL (NA, K, CL, CO2) (10/29/2024 12:10 PM PDT) Only the most recent of2 resultswithin the time period is included. SODIUM 137 136 - 145 mEq/L [facility], [facility] POTASSIUM 3.0(L) 3.5 - 5.1 mEq/L [facility], [facility] CHLORIDE 101 98 - 113 mEq/L [facility], [facility] CO2 27 23 - 31 mEq/L [facility], [facility] Comment: Please review results carefully for any changes to reference ranges (indicated by R superscript). Deployment of new chemistry analyzers is occurring across [facility] through 2026. BLOOD / Unknown 10/29/2024 1 2:10 PM PDT Narrative [facility], [facility] - 10/30/2024 2:29 AM PDT [facility] ACCN: [id number] Tessy Peralta) Usha Quiroz SERUM CH EMISTRY [facility], [facility] [address] [place] [address] * (ABNORMAL) CBC NO DIFF (10/29/2024 12:10 PM PDT) WBC'S AUTO 8.3 4.0 - 11.0 x1000/mcL [facility], [facility] RBC, AUTO 3.75 3.70 - 5.20 Mill/mcL [facility], [facility] HGB 10.6(L) 11.5 - 16.0 g/dL [facility], [facility] HCT, AUTO 32.5(L) 35.0 - 47.0 % [facility], [facility] MCV 86.7 81.0 - 99.0 fL [facility], [facility] MCH 28.3 25.0 - 35.0 pg/cell [facility], [facility] MCHC 32.6 30.0 - 35.0 g/dL [facility], [facility] RDW, BLOOD 14.6 11.5 - 16.0 % [facility], [facility] PLATELETS, AUTOMATED COUNT 482(H) 130 - 400 x1000/mcL [facility], [facility] BLOOD / Unknown 10/29/2024 1 2:10 PM PDT Narrative [facility], CLINICAL PATHOLOGY - [place] - 10/30/2024 12:32 AM PDT [facility] ACCN: [id number] Tessy Peralta) Usha Quiroz HEMATOLO GY Performing Organization Address City/[facility]/ZIP Co de Phone Number [facility], [facility]Y - [place] [address] [place] [address] * LIVER FUNCTION PANEL (TBILI, ALT, ALKP) (10/22/2024 1:16 PM PDT) ALT 14 <=54 U/L [facility] ALKALINE PHOSPHATASE 50 <=125 U/L [facility] BILIRUBIN, TOTAL 0.6 <=1.0 mg/dL [facility] BLOOD / Unknown 10/22/2024 1 :16 PM PDT Narrative [facility] - 10/22/2024 7:47 PM PDT [facility] ACCN: [id number] Ashok Kitchenkwu (P.A.) Umah-Mgborogwu P. A. SERUM CHEMISTRY Performing Organization Address [facility] Co de Phone Number [facility] [address] [place] [address] * BUN (10/22/2024 1:16 PM PDT) Only the most recent of9 resultswithin the time period is included. BUN 9 <=18 mg/dL [facility] BLOOD / Unknown 10/22/2024 1 :16 PM PDT Narrative [facility] - 10/22/2024 7:40 PM PDT [facility] ACCN: [id number] Ashok Tocannamariekwu (P.A.) Umah-Mgborogwu P. A. SERUM CHEMISTRY Performing Organization Address City/[facility]/ZIP Co de Phone Number [facility] [address] [place] [address] * LIPASE (10/22/2024 1:16 PM PDT) Only the most recent of2 resultswithin the time period is included. LIPASE 39 <=58 U/L [facility] BLOOD / Unknown 10/22/2024 1 :16 PM PDT Narrative [facility] - 10/22/2024 7:47 PM PDT [facility] ACCN: [id number] Ashok Batres (P.A.) Rico-Mgchuckwu P. A. SERUM CHEMISTRY Performing Organization Address City/[facility]/ZIP Co de Phone Number [facility] [address] [address] * (ABNORMAL) CBC W AUTOMATED DIFFERENTIAL (10/22/2024 1:16 PM PDT) Only the most recent of9 resultswithin the time period is included. WBC'S AUTO 10.7 4.0 - 11.0 x1000/mcL [facility] RBC, AUTO 3.75 3.70 - 5.20 Mill/mcL [facility] HGB 10.5(L) 11.5 - 16.0 g/dL [facility] HCT, AUTO 31.4(L) 35.0 - 47.0 % [facility] MCV 83.7 81.0 - 99.0 fL [facility] MCH 28.0 25.0 - 35.0 pg/cell [facility] MCHC 33.4 30.0 - 35.0 g/dL [facility] RDW, BLOOD 14.3 11.5 - 16.0 % [facility] PLATELETS, AUTOMATED COUNT 569(H) 130 - 400 x1000/mcL [facility] BLOOD / Unknown 10/22/2024 1 :16 PM PDT Narrative [facility] - 10/22/2024 7:50 PM PDT [facility] ACCN: [id number] Ashok Batres (P.A.) LanieS5 Wireless-Mgchuckwu P. A. HEMATOLOGY Performing Organization Address City/[facility]/ZIP Co de Phone Number [facility] [address] [place] [address] * (ABNORMAL) B-TYPE NATRIURETIC PEPTIDE (BNP) (10/22/2024 1:16 PM PDT) Only the most recent of3 resultswithin the time period is included. [facility] B TYPE NATRIURETIC PEPTIDE 820(H) <=99 pg/mL [facility] Comment: Less than 100: Not likely heart failure 100-500: Indeterminate range Greater than 500: Heart failure likely For Indeterminate results, one must consider the following: Baseline BNP value elevated due to stable underlying dysfunction; right ventricular failure present from COR Pulmonale; Acute pulmonary embolism or renal failure. BLOOD / Unknown 10/22/2024 1 :16 PM PDT Narrative [facility] - 10/22/2024 7:27 PM PDT [facility] ACCN: [id number] Ashok Batres (P.A.) Umah-Mgborogwu P. A. SERUM CHEMISTRY [facility] [address] [place] [address] * (ABNORMAL) WBC AUTO DIFF (10/22/2024 1:16 PM PDT) Only the most recent of9 resultswithin the time period is included. [facility] NEUTROPHILS %, AUTOMATED COUNT 79.3 [facility] LYMPHOCYTES %, AUTOMATED COUNT 10.7 [facility] MONOS %, AUTO 6.1 [facility] EOSINOPHILS %, AUTOMATED COUNT 1.6 [facility] BASOPHILS %, AUTOMATED COUNT 0.6 [facility] IMMATURE GRANULOCYTES %, AUTOMATED COUNT 2 [facility] RBC NUCLEATED AUTO COUNT, BLD 0 <=0 % [facility] NEUTROPHILS, ABSOLUTE, AUTOMATED COUNT 8.50(H) 1.80 - 7.70 x1000/mcL [facility] LYMPHOCYTES, AUTOMATED COUNT 1.15 1.00 - 3.60 x1000/mcL [facility] MONOCYTES, AUTOMATED COUNT 0.65 0.10 - 1.00 x1000/mcL [facility] EOSINOPHILS, AUTOMATED COUNT 0.17 0.00 - 0.70 x1000/mcL [facility] BASOPHILS, AUTOMATED COUNT 0.06 0.00 - 0.20 x1000/mcL [facility] IMMATURE GRANULOCYTES, AUTOMATED COUNT 0.18(H) 0.01 - 0.09 x1000/mcL [facility] BLOOD / Unknown 10/22/2024 1 :16 PM PDT Narrative [facility] - 10/22/2024 7:50 PM PDT [facility] ACCN: [id number] Ashok Batres (P.A.) Lanie-Mgborogwu P. A. HEMATOLOGY Performing Organization Address [facility] de Phone Number [facility] [address] [place] [address] * GLUCOSE (10/22/2024 1:16 PM PDT) Only the most recent of2 resultswithin the time period is included. GLUCOSE, RANDOM 107 70 - 140 mg/dL [facility] BLOOD / Unknown 10/22/2024 1 :16 PM PDT Narrative [facility] - 10/22/2024 7:40 PM PDT [facility] ACCN: [id number] Ashok Batres (P.A.) Lanie-Mgborogwu P. A. SERUM CHEMISTRY Performing Organization Address [facility] de Phone Number [facility] [address] [place] [address] * (ABNORMAL) ELECTROLYTE PANEL (NA, K, CL, CO2, ANION GAP) (10/21/2024 4:37 AM PDT) Only the most recent of13 resultswithin the time period is included. SODIUM 127(L) 135 - 145 mEq/L [facility] POTASSIUM 3.6 3.5 - 5.0 mEq/L [facility] CHLORIDE 96(L) 101 - 111 mEq/L [facility] CO2 22 21 - 31 mEq/L [facility] ANION GAP (NA - (CL + CO2)) 9 3 - 11 mEq/L [facility] BLOOD / Unknown 10/21/2024 4 :37 AM PDT Keyon Peralta) Azael Quiroz SER UM CHEMISTRY Performing Organization Address [facility] Co de Phone Number [facility] [address] [place] [address] * (ABNORMAL) PHOSPHATE (10/21/2024 4:37 AM PDT) Only the most recent of2 resultswithin the time period is included. PHOSPHORUS 2.6(L) 2.7 - 4.5 mg/dL [facility] BLOOD / Unknown 10/21/2024 4 :37 AM PDT Regine Sanchez.Navneet) Kobi Witt SERUM WATERSIDE WORKER RY Performing Organization Address [facility] Co de Phone Number [facility] [address] [place] [address] * MAGNESIUM (10/21/2024 4:37 AM PDT) Only the most recent of9 resultswithin the time period is included. MAGNESIUM 2.3 1.7 - 2.8 mg/dL [facility] Comment: Magnesium results between 4.9 mg/dL and 9.7 mg/dL are not considered critical for patients receiving MgSO4 therapy. BLOOD / Unknown 10/21/2024 4 :37 AM PDT Eder Sanchez.Navneet) Javad Witt SERUM CHEMISTRY Performing Organization Address [facility] Co de Phone Number [facility] [address] [place] [address] * (ABNORMAL) GLUCOSE, FASTING (10/21/2024 4:37 AM PDT) Only the most recent of7 resultswithin the time period is included. GLUCOSE, FASTING 117(H) 70 - 99 mg/dL [facility] Comment: A repeatable fasting [...] Quiroz SERUM CHEMISTR Y Performing Organization Address [facility] de Phone Number [facility] [address] [place] [address] * SODIUM, URINE (10/20/2024 9:59 PM PDT) SODIUM, URINE 56 mEq/L [facility] Comment: To precisely quantify excretion, please collect 24 hour urine. URINE 10/20/2024 9:59 PM PDT Keyon Peralta) Azael GARCIA CHEMISTRY Performing Organization Address [facility] Phone Number [facility] [address] [place] [address] * OSMOLALITY, URINE (10/20/2024 9:59 PM PDT) OSMOLALITY, URINE 625 50 - 1,200 mOsm/kg [facility] Comment: Reference Range for Urine Osmolality: Random Specimen : 50-1200 mOsm/kg H2O 24 Hr Specimen: Age: 0-1 Month : 50-645 mOsm/kg H2O Age: 1 Month-Adult : 50-900 mOsm/kg H2O URINE 10/20/2024 9:59 PM PDT Keyon GARCIA CHEMISTRY Performing Organization Address [facility] de Phone Number [facility] [address] [place] [address] * (ABNORMAL) OSMOLALITY, SERUM (10/20/2024 12:07 PM PDT) MEASURED OSMOLALITY 263(L) 280 - 305 mOsm/kg [facility] BLOOD / Unknown 10/20/2024 1 2:07 PM PDT Keyon Peralta) Azael Quiroz SER CHEMISTRY [facility] [address] [place] [address] * XR CHEST 1 VIEW (10/19/2024 4:34 PM PDT) Only the most recent of2 resultswithin the time period is included. Anatomical Region Laterality Modality Chest Other 10/20/2024 [...] Peralta) Azael Quiroz GEN ERAL IMAGING * STREPTOCOCCUS PNEUMONIAE ANTIGEN, URINE, IMMUNOCHROMATOGRAPHIC ASSAY (10/16/2024 7:37 PM PDT) STREPTOCOCCUS PNEUMONIAE AG, URINE Negative Negative [facility] Comment: Adults with pneumococcal pneumonia sensitivity 50-80%; specificity 90%. Children with pneumococcal pneumonia sensitivity 80-90%; specificity 60-80%. URINE 10/16/2024 7:37 PM PDT Eder Sanchez.O.) Javad D.O. IMMUNOLOGY Performing Organization Address [facility] Co de Phone Number [facility] [address] [place] [address] * LEGIONELLA PNEUMOPHILA ANTIGEN, URINE, IMMUNOASSAY (10/16/2024 7:37 PM PDT) Pathologist [facility] LEGIONELLA PNEUMOPHILA AG, URINE, EIA Presumptive Negative Presumptive Negative [facility] Comment: Presumptive positive for the presence of L. pneumophila serogroup 1 antigen in urine, suggesting current or past infection. Please submit a respiratory specimen for LEGIONELLA SPECIES CULTURE [[facility] order code: [id number]]. Urinary Legionella antigen may persist long after active infection has resolved. More conclusive evidence of active infection is obtained from LEGIONELLA SPECIES CULTURE [[facility] order code: [id number]], Results of this assay should be interpreted [...] disease. URINE 10/16/2024 7:37 PM PDT Eder Santoro (Familia.O.) Javad Barbosa.O. OUTSIDE TESTING Performing Organization Address [facility] Co de Phone Number [facility] [address] [place] [address] * SARS-COV-2 (COVID-19), INFLUENZA A + B, MULTIPLEX STACY (10/16/2024 11:45 AM PDT) Pathologist [facility] SARS-COV-2 (COVID-19), QUALITATIVE, STACY Not Detected Not Detected [facility] INFLUENZA VIRUS A, PCR Not Detected Not Detected [facility] INFLUENZA VIRUS B RNA, PCR Not Detected Not Detected [facility] Comment: Positive results do [...] SWAB 10/16/2024 11:4 5 AM PDT Eder SantamariaD.O.) Javad Barbosa.Navneet VIROLOGY Performing Organization Address [facility] de Phone Number [facility] [address] [place] [address] * CLOSTRIDIUM DIFFICILE GDH AG, TOXINS A, B W REFLEX TO PCR (10/15/2024 10:11 AM PDT) CLOSTRIDIOIDES (CLOSTRIDIUM) DIFFICILE AG AND TOXINS A+B, STOOL Negative Negative [facility] Comment: A finding of I ndeterminate represents discrepant immunoassay results obtained for GDH (antigen specific to C. difficile) and toxin production. Molecular testing (nucleic acid amplification) will follow to confirm results. STOOL 10/15/2024 10:1 1 AM PDT Eder SantamariaD.O.) Javad Barbosa.Navneet MICROBIOLOGY Performing Organization Address [facility] de Phone Number [facility] [address] [place] [address] * (ABNORMAL) HEPARIN THERAPY, APTT (10/15/2024 8:12 AM PDT) Only the most recent of2 resultswithin the time period is included. APTT 52(L) 68 - 105 Sec [facility] BLOOD / Unknown 10/15/2024 8 :12 AM PDT Anish Perez.P.HHerlinda Dill PHARM.D. COAGULATION Performing Organization Address [facility] de Phone Number [facility] [address] [place] [address] * (ABNORMAL) UNFRACTIONATED HEPARIN, ANTI FACTOR XA (10/15/2024 8:12 AM PDT) Only the most recent of2 resultswithin the time period is included. Pathologist [facility] HEPARIN, UNFRACTIONATED <0.10(L) 0.30 - 0.70 IU/mL [facility] BLOOD / Unknown 10/15/2024 8 :12 AM PDT Anish SantamariaR.P.HHerlinda Dill PHARM.D. COAGULATION Performing Organization Address [facility] de Phone Number [facility] [address] [place] [address] * (ABNORMAL) ALBUMIN (10/15/2024 5:57 AM PDT) [facility] ALBUMIN 2.4(L) 3.3 - 4.8 g/dL [facility] BLOOD / Unknown 10/15/2024 5 :57 AM PDT Catalino Peralta) Rl Quiroz SERUM CHEMISTR Y Performing Organization Address [facility] de Phone Number [facility] [id number] [place] [address] * BACTERIAL GI PANEL (SALMONELLA, SHIGELLA/EIEC, CAMPYLOBACTER, SHIGA TOXIN DNA), STOOL, MULTIPLEX PCR (10/14/2024 10:38 PM PDT) Pathologist [facility] SALMONELLA SPECIES DNA, STOOL, QL, PCR Not Detected Not Detected [facility] , [facility] SHIGELLA SP+EIEC DNA, STOOL, QL, PCR Not Detected Not Detected [facility] , [facility] CAMPYLOBACTER COLI/JEJUNI DNA, STOOL, QL, PCR Not Detected Not Detected [facility] SHIGA TOXIN GENES, PCR Not Detected Not Detected [facility] Comment: A Not Detected result may [...] Peralta) Rl Quiroz MICROBIOLOGY Performing Organization Address City/[facility] Co de Phone Number [address] [address] * BLOOD CULTURE (10/14/2024 4:14 PM PDT) Only the most recent of2 resultswithin the time period is included. Pathologist [facility] FINAL RESULT No growth at 5 days. [facility] BLOOD / Unknown 10/14/2024 4 :14 PM PDT Catalino Peralta) Rl Quiroz MICROBIOLOGY Performing Organization Address [facility] Co de Phone Number [address] [address] * (ABNORMAL) TROPONIN I, HIGH SENSITIVITY (10/14/2024 3:55 PM PDT) Only the most recent of2 resultswithin the time period is included. Pathologist [facility] TROPONIN I, HIGH SENSITIVITY 24(H) <=12 pg/mL [facility] Comment: Symptom hsTnI (pg/mL) Delta hsTnl Interpretation Duration M F (pg/mL) >=18y/o M <18y/o Any >100 >75 Myocardial Injury >3 hours <=20 <=12 No Myocardial Injury 21-100 13-75 Rpt TnI in 2 hrs.Calc Delta <=[address] 6-10 Indeterminate >10 Acute Myocardial Injury *Troponin values may be elevated in clinical conditions other than acute coronary syndrome. BLOOD / Unknown 10/14/2024 3 :55 PM PDT Catalino Peralta) Rl Quiroz IMMUNOLOGY Performing Organization Address City/State/[facility] Co de Phone Number [facility] [address] [facility] [place] [address] * CT ABD AND PELVIS NO CONTRAST [...] atherosclerosis. This report electronically signed by CATALINO PURDY on 10/14/2024 3:46 PM Narrative 10/14/2024 3:46 [...] of the lumbar spine. Procedure Note Catalino Purdy M.D., Richie - 10/14/2024 CLINICAL HISTORY: Reason: generalized abdominal pain, history of CKD Ifafter hours, there needs to be MD to MD contact for scheduling. COMPARISON: No previous study available. TECHNIQUE: Study performed per protocol. CT Dose: As required by [place] law, the CTDIvol and DLP radiation dosesassociated [...] atherosclerosis. This report electronically signed by CATALINO PURDY on 10/14/2024 3:46 PM Fariha Hermosillo M.D. CT * TRANSTHORACIC ECHO (TTE) LIMITED, CV (10/14/2024 3:23 PM PDT) Narrative Sanjiv Valenet M.D., M.D. - 10/14/2024 3:59 PM PDT [...] Rl Quiroz CV ECHO PROCED URES * LACTIC ACID, BLOOD (10/14/2024 2:04 PM PDT) LACTATE, SER/PLAS 1.0 0.5 - 1.9 mmol/L [facility] BLOOD / Unknown 10/14/2024 2 :04 PM PDT Narrative [facility] - 10/14/2024 2:23 PM PDT Fariha Peralta) Jaimee Quiroz SERUM CHEM ISTRY Performing Organization Address [facility] Co de Phone Number [facility] [place] [address] * (ABNORMAL) CALCIUM (10/14/2024 2:04 PM PDT) CALCIUM 8.0(L) 8.5 - 10.7 mg/dL [facility] BLOOD / Unknown 10/14/2024 2 :04 PM PDT Fariha Peralta) Jaimee Quiroz SERUM CHEM ISTRY Performing Organization Address [facility] Co de Phone Number [facility] [employer] [place] [address] * (ABNORMAL) LACTIC ACID W REFLEX TO REPEAT (10/14/2024 11:06 AM PDT) LACTATE, SER/PLAS 2.3(H) 0.5 - 1.9 mmol/L [facility] BLOOD / Unknown 10/14/2024 1 1:06 AM PDT Fariha Peralta) Jaimee Quiroz SERUM CHEM ISTRY Performing Organization Address City/[facility] Co de Phone Number [facility] [address] [place] [address] * ALT (10/14/2024 11:06 AM PDT) ALT 15 <=54 U/L [facility] BLOOD / Unknown 10/14/2024 1 1:06 AM PDT Kelly Peralta) Yvan Quiroz SERUM CHEMISTRY Performing Organization Address [facility] de Phone Number [facility] [address] [place] [address] * AST (10/14/2024 11:06 AM PDT) AST 20 <=30 U/L [facility] BLOOD / Unknown 10/14/2024 1 1:06 AM PDT Kelly Peralta) Yvan Quiroz SERUM CHEMISTRY Performing Organization Address [facility] de Phone Number [facility] [address] [place] [address] * ALKALINE PHOSPHATASE (10/14/2024 11:06 AM PDT) ALKALINE PHOSPHATASE 62 <=125 U/L [facility] BLOOD / Unknown 10/14/2024 1 1:06 AM PDT Kelly Peralta) Yvan Quiroz SERUM CHEMISTRY Performing Organization Address City/[facility] Co de Phone Number [facility] [address] [place] [address] * (ABNORMAL) BILIRUBIN, DIRECT (10/14/2024 11:06 AM PDT) BILIRUBIN, DIRECT 0.4(H) <=0.2 mg/dL [facility] BLOOD / Unknown 10/14/2024 1 1:06 AM PDT Kelly Peralta) Yvan Quiroz SERUM CHEMISTRY Performing Organization Address [facility] Co de Phone Number [facility] [address] [place] [address] * (ABNORMAL) BILIRUBIN, TOTAL (10/14/2024 11:06 AM PDT) BILIRUBIN, TOTAL 1.3(H) <=1.0 mg/dL [facility] BLOOD / Unknown 10/14/2024 1 1:06 AM PDT Kelly Peralta) Yvan Quiroz SERUM CHEMISTRY Performing Organization Address [facility] Co de Phone Number [facility] [address] [place] [address] * (ABNORMAL) APTT (10/14/2024 11:06 AM PDT) APTT 40(H) 25 - 37 Sec [facility] BLOOD / Unknown 10/14/2024 1 1:06 AM PDT Shante (Pharm.D) To PHARM.D. COAGULATIO N Performing Organization Address [facility] Co de Phone Number [facility] [address] [place] [address] * EKG 12 OR MORE LEADS W INT & RPT (10/14/2024 10:30 AM PDT) VENTRICULAR RATE 178 BPM SCAL EKG INTERFACE ATRIAL RATE 182 BPM SCAL EKG INTERFACE NH INTERVAL 146 ms SCAL EKG INTERFACE QRS [...] 10/17/2024 3:38 PM PDT Ashok Batres (P.A.) JamarMgtobyogarmani P. A. CV EKG SCAL EKG INTERFACE * URINALYSIS, DIPSTICK, POCT (10/14/2024 10:11 AM PDT) Narrative Saran Stock (L.V.NLamar), L.V.N. - 10/14/2024 10:11 AM PDT URINE DIPSTICK, POCT GLUCOSE: Neg Reference Range: Negative KETONES: 15 mg/dL Reference Range: Negative SP. GRAVITY: 1.015 Reference Range: 1.005-1.030 BLOOD: Neg Reference Range: Negative PH: 6.5 Reference Range: 5.0 - 8.0 PROTEIN: 100 mg/dL (2+) Reference Range: Negative/Trace NITRITE: Negative Reference Range: Negative LEUKOCYTES: Negative Reference Range: Negative LOT#:[id number] Expiration Date:09/30/25 Date/Time: 10/14/2024 10:11 AM Performed by: SARAN STOCK [facility] [address] [address] CUSTOMS BROKERAGE AGENT: [facility] Med Office - Yolanda Prescott D.O. Ashok Batres (P.A.) JamarMgborogrichardu P. A. POCT * (ABNORMAL) SODIUM AND POTASSIUM (09/10/2024 11:56 AM PDT) SODIUM 136 135 - 145 mEq/L [facility] POTASSIUM 3.4(L) 3.5 - 5.0 mEq/L [facility] BLOOD / Unknown 09/10/2024 1 1:56 AM PDT Narrative [facility] - 09/10/2024 7:45 PM PDT CHRIS ACCN: [id number] Wilmer Ludwig M.D. SERUM CHEM ISTRY [facility] [address] [place] [address] * CARDIAC DEVICE CHECK, IN CLINIC, PACEMAKER DUAL CHAMBER W PROGRAMMING, CV (08/27/2024 11:01 AM PST) Narrative Melanie Ward (N.P.), N.P. - 08/27/2024 11:01 AM PST Table formatting from the original result was not included. Pacemaker Follow Up Progress Note. Subjective: Patient is here for routine interrogation and testing of pacemaker. Patient has no complaints today and is feeling well. Initial Indication for pacemaker: Tachy-Donald syndrome Primary Cuff Cutter: Dr Francheska Lares Objective: Pacemaker Incision site: Left infraclavicular site well healed. Clean and Intact. Pacemaker: Device: [employer] (Guidant) Model, Accolade L331 DOI: 05/23/2023 MRI Safe: yes Pacemaker settings Pulse width: A - 0.4 ms, V - 0.4 ms Amplitude: A - 2.0 Volts auto, V - 1.9 Volts auto BP (!) 172/63 (BP Location: LA-LEFT ARM, BP Patient Position: SITTING, Cuff Size: Standard Adult) Pulse 84 Temp 36.6 C (97.8 F) (Temporal) Ht 1.6 m (5' 3) Wt 64.7 kg (142 lb 10.2 oz) BMI 25.27 kg/m Nurses note and vitals reviewed. Outpatient Medications Marked as Taking for the 08/27/24 encounter (Ancillary Procedure) with [facility] MELANIE WARD Medication Sig Dispense Refill Atorvastatin (LIPITOR) 10 mg Oral Tab Take 1 tablet by mouth daily to lower cholesterol and keep arteries open 100 tablet 3 Lisinopril (PRINIVIL/ZESTRIL) 5 mg Oral Tab Take 1 tablet by mouth daily to control blood pressure and/or prevent strokes and help the heart and kidneys 100 tablet 5 Warfarin 2 mg Oral Tab Take by mouth as directed by Anticoagulation clinic 150 tablet 0 dilTIAZem (CARDIZEM CD) 120 mg Oral 24hr SR Cap Take 1 capsule by mouth 2 times a day 200 capsule 2 Warfarin 2 mg Oral Tab Take 1 and 1/2 tablets by mouth daily except 2 tablets Monday or as directed by the anticoagulation clinic 150 tablet 1 cloNIDine (CATAPRES-TTS 1) 0.1 mg/24 hr TD Weekly Patch Apply 1 Patch to skin every 7 days . Remove old patch before applying the new one 12 Patch 4 dilTIAZem (CARDIZEM) 30 mg Oral Tab Take 1 tablet by mouth up to 3 times a day as needed atrial fibrillation episodes 100 tablet 3 Nitrofurantoin Monohydrate (MACROBID) 100 mg Oral Cap Take 1 capsule by mouth daily 100 capsule 4 Latanoprost (XALATAN) 0.005 % Opht Drop Instill 1 Drop in both eyes daily at bedtime for Glaucoma 10 mL 12 Dorzolamide-Timolol (COSOPT) 22.3-6.8 mg/mL Opht Drop Instill 1 Drop in both eyes 2 times a day 20 mL 11 Current Facility-Administered Medications for the 08/27/24 encounter (Ancillary Procedure) with CRN DEV [facility] MELANIE WARD Medication Dose Route Frequency Provider Last Rate Last Admin Triamcinolone Acetonide Inj 40 mg (KENALOG) 40 mg Intra-articular X1 Triamcinolone Acetonide Inj 40 mg (KENALOG) 40 mg Intra-articular X1 Lidocaine (PF) 10 mg/mL (1 %) Inj 2 mg (XYLOCAINE) 2 mg Injection X1 Lidocaine (PF) 10 mg/mL (1 %) Inj 2 mg (XYLOCAINE) 2 mg Injection X1 Pacemaker interrogation: Presenting/Real time telemetry: Atrial sensing, Ventricular sensing Current intrinsic rhythm/rate: Normal sinus rhythm HR 60 Mode: DDDR Programmed Pacing rate: 60 Percent of AP/DOLLY PUSHER: 4%/<1% Battery:13 years TESTING: Sensing Threshold: P wave 1.6 mV R wave 10.2 mV Capture Threshold: A 0.5 Volts@ 0.4 ms. V 1.2 Volts@ 0.4 ms. Atrial lead impedance: 540 ohms. Ventricular lead impedance: 533 ohms. Pacer Dependent: no Episodes: Multiple SBR (sudden donald response) episodes 2 days of AF episodes - longest 6 hours. Poor ventricular control on episodes recorded. ASSESSMENT: Pacemaker interrogation showed stable battery, stable lead impedances, stable threshold and sensitivity. Programmed parameters are reviewed and are appropriate for this patient. Heart rate histogram shows good HR variability. PAF - with brief RVR. Overall good VR control PLAN: REPROGRAMMING: no Return to clinic in 12 month(s). Remote interrogation 6 months Educated patient about pacemaker function. Educated patient about interrogation done today. Reinforced patient to contact the clinic if she has any device related problems or questions Melanie Ward NP 08/27/2024 Melanie Moreno (N.Bere) Enrrique Jeffers CV CAREY CE PROCEDURES from Last 3 Months Advance Directives * Full Code (Latest Code Status on File) Date Activated Date Inactivated Comments 10/21/2024 3:56 PM Question Answer Comments Result Release to patient? Immediate * Full Code Date Activated Date Inactivated Comments 10/14/2024 3:08 PM 10/21/2024 3:56 PM Question Answer Comments Result Release to patient? Immediate * Full Code Date Activated Date Inactivated Comments 05/23/2023 9:23 AM 05/24/2023 6:03 PM Question Answer Comments Result Release to patient? Immediate * Full Code Date Activated Date Inactivated Comments 04/28/2021 9:54 AM 04/28/2021 7:36 PM Question Answer Comments Result Release to patient? Immediate * Full Code Date Activated Date Inactivated Comments 04/28/2021 7:23 AM 04/28/2021 9:54 AM Question Answer Comments Result Release to patient? Immediate Care Teams Manager Site Relationship Specialty Start Date End Date Wilmer Ludwig), [address]ie [address] [phone] PCP - General Family Practice 01/10/14
--- OUTSIDE RECORDS SUMMARY | 2024-11-22 11:42 | XMS_ITS | Encounter Summary ---
Author Organization [facility] Address [address] [place] [address] Care Team Providers Care Spring Production Supervisor Name Role Phone Wilmer Ludwig) Richie Primary Care Prov ider Unavailable Encounter Details Date Type Department Care Team (Late st Contact Info) Description 11/21/2024 Anticoagulation [facility] [address] [place] [address] Noah Dill (Pharm.D), PHARM.D. [address] [place] [phone] Social History Tobacco Use Types Packs/Day Years [...] Notes * Noah Dill (Pharm.D), PHARM.D. - 11/21/2024 4:27 PM PDT No INR in process. Will have psychiatric technician assistant remind patient to return to lab for INR test TIM. Electronically signed by: NOAH DILL PHARMD 11/21/2024 4:27 PM documented in this encounter Plan of Treatment Upcoming Encounters Date Type Department Care Team (Late st Contact Info) Description 03/05/2025 10:00 AM PDT Office Visit CARDIOLOGY [address] [phone] Melanie Osuna (N.P.), N.P. [address] [place] [phone] documented as of this encounter Visit Diagnoses Not on filedocumented in this encounter Care Teams Spring Production Supervisor Relationship Specialty Start Date End Date Wilmer Ludwig), MTano. [address] [phone] PCP - General Family Practice 01/10/14 documented as of this encounter
--- OUTSIDE RECORDS SUMMARY | 2024-11-22 11:43 | XMS_ITS | Encounter Summary ---
Author Organization [facility] Address [address] [place] [place] [address] Care Team Providers Care Wire Photo Operator News Name Role Phone Wilmer Ludwig) Richie Primary Care Prov ider Unavailable Encounter Details Date Type Department Care Team (Late st Contact Info) Description 10/30/2024 Anticoagulation [facility] [address] [place] [address] Noah Dill (Pharm.D), PHARM.D. [address] [place] [phone] Social History Tobacco Use Types Packs/Day Years [...] Notes * Noah Dill (Pharm.D), PHARM.D. - 10/30/2024 2:11 PM PDT Primary care physician: Wilmer Ludwig) Per inpatient pharmacist follow-up: AAHPN (Anticoagulation After Hours Progress Note) Call from LAB INR 6.5 (AA) 10/29/2024 Anticoag Clinic After Hours Note RE: Saira Belle, [phone] Spoke with patient regarding critical INR. No s/sx of bleeding per patient. Counseled patient to goto /ER for uncontrolled bleeding lasting longer than 15 min or blood in urine or stool. INR 6.5 (AA) 10/29/2024 Goal INR: 2-3 Assessment/Plan: 1) INR is supratherapeutic. 2) Instructed patient to hold warfarin tonight. 3) Next INR Draw per Outpatient Anticoagulation Services Anticoagulation Clinic to follow-up with patient on next business day. Spoke with patient S/O: Patient: Confirmed dose/tablet strength Skipped yesterday's warfarin dose. Started amiodarone as previously reported. Denied significant changes in diet, appetite, alcohol intake, or physical activity level Denied significant changes in health or recent hospital admissions Denied recent falls or injuries Denied signs and symptoms of bleeding or bruising Denied upcoming invasive procedures Patient Reported: per IP [facility] f/u 10/29/24: Instructed patient to hold warfarin tonight, low activitylevel, eating a little less than usual but improving, took 1 tab of Tylenol on monday, no alcohol/cranberry/pomegranate, no bleeding/bruising, no n/v/d/illness INR 6.5 (AA) 10/29/2024 Indications: Atrial Fibrillation (I48.91) INR Low Range: 2 - INR High Range: 3 Warfarin Tab (MG): 2mg Lavender A/P: INR: critical, Hold dose for 2 more days, then decrease weekly maintenance dosage. One Time Dose: hold warfarin 10/30-10/31 then Start new Warfarin Dosing Instructions: decr 2mg daily Follow up date: 11/04/24 For any major active bleeding (blood in urine or stool, bleeding episodes lasting > 15 min), advised patient to go to emergency room or urgent care as soon as possible for immediate care. Confirmed patient???s understanding of warfarin instruction by [...] clotting/stroke. Electronically signed by: NOAH DILL PHARMD 10/30/2024 2:21 PM documented in this encounter Plan of Treatment Upcoming Encounters Date Type Department Care Team (Late st Contact Info) Description 03/05/2025 10:00 AM PDT Office Visit CARDIOLOGY [address] [phone] Melanie Osuna (N.P.), N.P. [address] [facility] [place] [phone] documented as of this encounter Visit Diagnoses Not on filedocumented in this encounter Care Teams Wire Photo Operator News Relationship Specialty Start Date End Date Wilmer Ludwig), Dilma. [address] [phone] PCP - General Family Practice 01/10/14 documented as of this encounter
--- OUTSIDE RECORDS SUMMARY | 2024-11-22 11:43 | XMS_ITS | Encounter Summary ---
Author Organization [facility] Address [address] [place] [address] Care Team Providers Care Artificial Inseminator Name Role Phone Wilmer Ludwig) Richie Primary Care Prov ider Unavailable Reason for Visit * Reason Comments APPOINTMENT REQUEST, ROUTINE SCC, CARDIO LOGY Encounter Details Date Type Department Care Team (Late st Contact Info) Description 11/01/2024 Call Center Telephone Encounter CARDIOLOGY [address] [place] [address] Francheska Lares), MMagdalene [address] [place] [address] APPOINTMENT REQUEST, ROUTINE (SCC, CARDIOLOGY) Social History Tobacco Use Types Packs/Day Years [...] as of this encounter Progress Notes * Yvette Mccabe), R.N. - 11/01/2024 2:04 PM PDT Patient called and rescheduled Future Appointments Date Time Provider Department Center 11/06/2024 3:00 PM Melanie Osuna (N.P.), N.P. [facility] 11/15/2024 11:40 AM Wilmer Ludwig M.D., M.D. [facility] documented in this encounter Plan of Treatment Upcoming Encounters Date Type Department Care Team (Late st Contact Info) Description 03/05/2025 10:00 AM PDT Office Visit CARDIOLOGY [address] [place] [phone] Melanie Osuna (Debi.Bere), N.P. [address] [place] [phone] documented as of this encounter Visit Diagnoses Not on filedocumented in this encounter Care Teams Artificial Inseminator Relationship Specialty Start Date End Date Wilmer Ludwig)Richie [address] [phone] PCP - General Family Practice 01/10/14 documented as of this encounter
--- OUTSIDE RECORDS SUMMARY | 2024-11-22 11:43 | XMS_ITS | Encounter Summary ---
Author Organization [facility] Address [address] [place] [address] Care Team Providers Care Midwife Practitioner Name Role Phone Wilmer Ludwig) Richie Primary Care Prov ider Unavailable Encounter Details Date Type Department Care Team (Late st Contact Info) Description 11/05/2024 Anticoagulation [facility] [address] [place] [address] Noah Dill (Pharm.D), PHARM.D. [address] [place] [phone] Social History Tobacco Use Types Packs/Day Years [...] Notes * Noah Dill (Pharm.D), PHARM.D. - 11/05/2024 4:38 PM PDT Received message: Obi Rivas - Outside Lab letter request Outside Lab letter request Obi Rivas Saira Belle : 1945 Pt Work: Pt Home: Sent: MonNovember 05, 2024 11:32 AM To: Noah Dill (Pharm.D), PHARM.D. Message Patient plans to go to [place] on 11/13/24 for a couple of months and wants to go to a lab there.Pls mail out letter to address below and also pls send to [employer]. Thank you! [id number] [facility] [phone] Printed outside lab letter for mailing and sent via [employer] Electronically signed by: NOAH DILL PHARMD 11/05/2024 4:47 PM * Obi Rivas - 11/05/2024 11:24 AM PDT Spoke with patient , provided the following dosing instructions: One Time Dose: 1mg 11/05 then Warfarin Dosing Instructions: 2mg daily Patient reported: No changes. Patient reports: No change in tablet strength [...] current dosing instruction and next INR date 11/11/24. Confirmed dosing instructions and asked to repeat back. Patient plans [place] go [place] 11[place]13[place]24 [place] a couple of months and wants to go to a lab there. Patient requests lab letter mailed and sent to [employer]. Sent PharmD Staff msamando Rivas Mixer Helper Records Management Technician Pharmacist [facility] 11/05/2024 11:24 AM * Noah Dill (Pharm.D), PHARM.D. - 11/05/2024 9:27 AM PDT Primary Care Physician: Wilmer Ludwig) S/O: Instructed Anticoagulation Service pharmacist social media intern to call patient to check if patient has any questions or concerns and: Confirm tablet strength and previous dosing instruction Missed doses Changes in medications (Both prescriptions and OTC such as herbals, vitamins, nutritional supplements) Significant changes in diet, appetite, alcohol intake, or physical activity level Significant changes in health or recent hospital admissions Recent falls or injuries Signs or symptoms of bleeding or bruising Upcoming invasive procedures. INR 3.1 (H) 11/04/2024 Indications: Atrial Fibrillation (I48.91) INR Low Range: 2 - INR High Range: 3 Warfarin Tab (MG): 2mg Lavender A/P: INR slightly supratherapeutic Instruct social media intern to give the following instructions: One Time Dose: 1mg 11/05 then Warfarin Dosing Instructions: 2mg daily Follow up date: 11/11/24 Records Management Technician to confirm patient???s understanding of warfarin instruction and ask to repeat back the instruction. Electronically signed by: NOAH DILL PHARMD 11/05/2024 9:29 AM documented in this encounter Nursing Notes * Mickey Flores - 11/05/2024 11:17 AM PDT Patient calling to go over INR results form draw on 11/04/24 . Messaged Records Management Technician: let me see one sec i can take it [phone] Obi Rvias Electronically signed by: MICKEY FLORES 11/05/2024 11:24 AM documented in this encounter Plan of Treatment Upcoming Encounters Date Type Department Care Team (Late st Contact Info) Description 03/05/2025 10:00 AM PDT Office Visit CARDIOLOGY [address] [place] [phone] Melanie Osuna (N.P.), N.P. [address] [place] [phone] documented as of this encounter Visit Diagnoses Not on filedocumented in this encounter Care Teams Midwife Practitioner Relationship Specialty Start Date End Date Wilmer Ludwig), Dilma. [address] [phone] PCP - General Family Practice 01/10/14 documented as of this encounter
--- OUTSIDE RECORDS SUMMARY | 2024-11-22 11:43 | XMS_ITS | Encounter Summary ---
Author Organization [facility] Address [address] [place] [address] Care Team Providers Care Adult Services Librarian Name Role Phone Wilmer Ludwig) Dilma. Primary Care Prov ider Unavailable Reason for Visit * Reason Onset Date Comments TEST RESULTS 11/04/2024 Encounter Details Date Type Department Care Team (Late st Contact Info) Description 11/04/2024 Telephone FAMILY PRACTICE [address] [place] [phone] Wilmer Ludwig), M.D. [address] [place] [address] TEST RESULTS Social History Tobacco Use Types Packs/Day Years [...] as of this encounter Progress Notes * Martine Valentino - 11/04/2024 6:15 PM PDT Patient contacted and informed per provider instruction. Patient stated understanding. Message resolved. [facility] [address] [facility] [address] [place] [phone] * Wilmer Luwdig), Richie - 11/04/2024 4:05 PM PDT Please advise pt repeat K level was normal. No further testing needed. documented in this encounter Plan of Treatment Upcoming Encounters Date Type Department Care Team (Late st Contact Info) Description 03/05/2025 10:00 AM PDT Office Visit CARDIOLOGY [address] [place] [phone] Melanie Osuna (N.P.), N.P. [address] [place] [address] documented as of this encounter Visit Diagnoses Not on filedocumented in this encounter Care Teams Adult Services Librarian Relationship Specialty Start Date End Date Wilmer Ludwig), Richie [address] [phone] PCP - General [facility] Practice 01/10/14 documented as of this encounter
[2024-11-22 11:47] VITALS: BP 177/73; PULSE 63; RESP 18; TEMP 36.9; O2SAT 97; BMI 24.8
--- NOTE | 2024-11-22 13:25 | ED.GENADULT ---
HPI - General Adult General Chief complaint: Unspecified Complaint, Adult Stated complaint: INR test Time Seen by Provider: 11/22/24 12:55 History of Present Illness HPI narrative: Patient is a 79-year-old woman who has chronic atrial fibrillation. She presents stating that she needs a monthly INR. She appears take 2 mg of Coumadin Monday. She has been feeling fine no bruising or bleeding. She is having no symptoms but needs to monitor her INR. Related Data Home Medications ?Medication ?Instructions ?Recorded ?Confirmed atorvastatin 10 mg tablet 10 mg PO QDAY 05/12/22 11/22/24 clonidine 0.1 mg/24 hr weekly 1 patch transdermal QWEEK 05/12/22 11/22/24 transdermal patch lisinopril 10 mg tablet 10 mg PO QDAY 05/12/22 11/22/24 warfarin 2 mg tablet 2 mg PO QMWF 05/12/22 11/22/24 amiodarone 200 mg tablet PO 11/22/24 carvedilol 12.5 mg tablet 12.5 mg PO BID 11/22/24 11/22/24 diltiazem HCl 120 mg PO 11/22/24 capsule,extended release 24 hr Allergies Allergy/AdvReac Type Severity Reaction Status Date / Time aspirin (From Percodan) Allergy Intermediate really Verified 11/22/24 11:52 sick and pass out oxycodone (From Percodan) Allergy Intermediate really Verified 11/22/24 11:52 sick and pass out Penicillins Allergy Intermediate vomiting Verified 05/12/22 12:17 Sulfa (Sulfonamide Allergy Intermediate vomiting Verified 05/12/22 12:17 Antibiotics) Review of Systems Status of ROS: Reports: 6 or more systems reviewed and unremarkable except as noted in History and below [facility] Medical History Seasonal allergies ?J30.2 - Other seasonal allergic rhinitis (ICD-10) Exam Narrative: Exam Narrative: EXAM GENERAL: Patient appears comfortable and well. EYES: No scleral icterus. LYMPH: No supraclavicular or cervical lymphadenopathy. SKIN: Visible skin seen during exam normal or with benign process only. EXT: No dependent lower extremity pedal edema. HEART: Regular rate and rhythm with no murmurs, rubs, or gallops. LUNGS: Clear to auscultation bilaterally with no crackles or wheezes. ABD: Soft, non tender, non distended. PSYCH: Good eye contact, speech is not pressured. Const: Vital Signs, click to edit/add: Vital Signs - 24 hr 11/22/24 11:47 Temperature 98.4 F Pulse Rate [Pulse Oximeter] 63 Respiratory Rate 18 Blood Pressure [Ri ght Upper Arm] 177/73 H Pulse Oximetry 97 Oxygen Delivery Me thod Room Air Course Course ED Course: Patient seen and examined. INR will be faxed to her consulting physician. I did give her my business card to come and have her INRs drawn through the clinic in the future as this may be more effective for everybody. Will review her INR and follow up based on its level today. Vital Signs Vital signs: Initial Vital Signs Temperature 98.4 F 11/22/24 11:47 Temperature Source Temporal Artery Scan 11/22/24 11:47 Pulse Rate 63 11/22/24 11:47 Respiratory Rate 18 11/22/24 11:47 Blood Pressure 177/73 H 11/22/24 11:47 Blood Pressure Mean 107 H 11/22/24 11:47 Blood Pressure Position Sitting 11/22/24 11:47 Pulse Oximetry 97 11/22/24 11:47 Oxygen Delivery Method Room Air 11/22/24 11:47 Vital Signs Temperature 98.4 F 11/22/24 11:47 Pulse Rate 63 11/22/24 11:47 Respiratory Rate 18 11/22/24 11:47 Blood Pressure 177/73 H 11/22/24 11:47 Pulse Oximetry 97 11/22/24 11:47 Oxygen Delivery Method Room Air 11/22/24 11:47 Temperature 98.4 F 11/22/24 11:47 Pulse Rate 63 11/22/24 11:47 Respiratory Rate 18 11/22/24 11:47 Blood Pressure 177/73 H 11/22/24 11:47 Pulse Oximetry 97 11/22/24 11:47 Oxygen Delivery Method Room Air 11/22/24 11:47 Discharge Plan Discharge Clinical Impression: Atrial fibrillation Patient Disposition: Home, Self-Care Condition: Stable Instructions: A-fib (Atrial Fibrillation) (ED) Additional Instructions: Continue current care Contact Dr. Gacria's office on Monday to set up further INRs. Activity Level: No Restrictions Discharge Diet: Regular Prescriptions: No Action warfarin 2 mg tablet 2 mg PO QMWF lisinopril 10 mg tablet 10 mg PO QDAY atorvastatin 10 mg tablet 10 mg PO QDAY clonidine 0.1 mg/24 hr patch weekly 1 patch transdermal QWEEK carvedilol 12.5 mg tablet 12.5 mg PO BID amiodarone 200 mg tablet PO diltiazem HCl 120 mg capsule,extended release 24hr PO Follow Up/Referrals: Provider,Not a Local [Primary Care Provider, Family Practice] Stand Alone Forms: Memeth Info Instructions
[2024-11-22 13:56] LABS: INR 2.41 (0.91-1.10); Prothrombin Time 27.4 Seconds
== END 2024-11-22 13:49 | disposition home or self-care (01) ==
LOC: ED 13:45
PROVIDERS: Emergency Provider Internal Medicine; PCP Internal Medicine
DX: R60.0 Localized edema (principal)
CPT/HCPCS: 36415; 85610; 99283

== ENCOUNTER 2024-11-29 16:49 | Emergency (ER) | payer OTHER, SELFPAY ==
--- OUTSIDE RECORDS SUMMARY | 2024-10-14 12:54 | XMS_ITS | Encounter Summary ---
Author Organization [facility] Address [address] [place] [address] Care Team Providers Care Felt Coverer Name Role Phone Wilmer Ludwig M.D., M.D. Primary Care Prov ider Unavailable Reason for Referral * (Emergency) Specialty Diagnoses / Procedures Referred By Contac t Referred To Contact [facility] [address] [address] [place] [address] Phone: [phone] Referral ID Status Reason Start Date Expiration Date V isits Requested Visits Authorized Specialty Services Required Question Answer Result Release to patient? Immediate Comments Reason for Consult: afib rvr, pacemaker * (Emergency) Specialty Diagnoses / Procedures Referred By Contac t Referred To Contact [facility] [address] [address] [place] [address] Phone: [phone] Referral ID Status Reason Start Date Expiration [...] 10/21/2024 5:11 PM PDT Hospital Encounter [facility] [address] [place] [address] Fariha Hermosillo (Richie), M.D. [address] [place] [address] Catalino Shine), M.DLamar [address] [place] [address] Eder Farnsworth (D.O.), D.O. [address] [place] [address] Nicolle Peace (D.OLamar), D.O. [address] [place] [address] ATRIAL FIBRILLATION W RAPID VENTRICULAR RESPONSE Discharge [...] this encounter Discharge Diagnoses Diagnosis HX OF MA, UNSPECIFIED TYPE ANTICOAGULATION MONITORING, INR 2.0-3.0 IP referral for afib documented in this encounter Discharge Summaries * Yousif Garduno (Pharm.D), PHARM.D. - 10/21/2024 4:30 PM PDT Inpatient Pharmacy Anticoagulation Discharge Progress Note Saira Belle [id number] Height: Ht Readings from Last 1 Encounters: [...] be determined when lab result available. Call [phone] for all further warfarin dosing and follow [...] day following discharge. Outpatient Anticoagulation Services at [facility] (including [place]) to follow patient upon discharge. Next INR: Patient instructed to go to the nearest [place] facility to draw next INR on 10/22/24. Electronically signed by YOUSIF GARDUNO PHARMD 10/21/2024 4:31 PM Inpatient Pharmacy * Nicolle Peace (D.O.), D.O. - 10/21/2024 3:32 PM PDT Images from the original note were not included. INTERNAL MEDICINE [facility] Patient: Saira Belle Admission Date: 10/14/2024 [...] and agrees to be discharged home Medical Cobre of Care: Long view medical concerns: atrial [...] Discharge Diagnosis: Active Hospital Problems HX OF MA, UNSPECIFIED TYPE ANTICOAGULATION MONITORING, INR 2.0-3.0 IP referral for afib ATRIAL FIBRILLATION, UNSPECIFIED DIASTOLIC HEART FAILURE, CHRONIC (HFPEF) ATHEROSCLEROSIS AORTA BILATERAL RENAL ARTERY STENOSIS Renal ultrasound 11/02/12 from [place]: 1. Unable to see the origin of the left renal artery due to calcification. There are elevated velocities in the left renal artery suggestion a hemodynamically significant stenosis. If clinically indicated, an angiogram with intent to treat could be considered. 2. Normal ultrasound appearance of the kidneys, bilaterally. Cardiac MRI performed on 11/02/12 in [place]: indication: severe Hypertension with suspected severe concentric [...] Metoprolol changed to carvedilol 10/2012 while in [place] for uncontrolled Hypertension Start hydrochlorothiazide 12.5 mg [...] needed. This patient did NOT have a MA during this hospital admission. No further patient [...] Microbiology Results ID Description Status Collection Date/Time [id number] BLOOD CULTURE Final result 10/14/24 1555 Result Value Flag Comment FINAL RESULT No growth at 5 days. [id number] BLOOD CULTURE Final result 10/14/24 1614 Result Value Flag Comment FINAL RESULT No growth at 5 days. [id number] CLOSTRIDIUM DIFFICILE GDH AG, TOXINS A, B W REFLEX TO PCR Final result 10/15/24 1011 Result Value Flag Comment CLOSTRIDIOIDES (CLOSTRIDIUM) DIFFICILE AG AND TOXINS A+B, STOOL Negative A finding of ???Indeterminate??? represents discrepant immunoassay results obtained for GDH (antigen specific to C. difficile) and toxin production. Molecular testing (nucleic acid amplification) will follow to confirm results. [id number] BACTERIAL GI PANEL (SALMONELLA, SHIGELLA/EIEC, CAMPYLOBACTER, SHIGA [...] the aortic knob. TRANSTHORACIC ECHO, LIMITED (TTE) [[id number]] 05/23/2023 INTERPRETATION SUMMARY: - Limited study for [...] you see your doctor, please call our [place] Discharge Nurse advice service at This service is available seven days a week, 24 hours a day. After you follow up with Wilmer Ludwig), if you have medical concerns, please call the appointment center at [facility]: . Have your [place] card handy. MY MEDICATIONS These medication directions [...] a member of your healthcareteam (physician, nurse, disease case manager rn, or pharmacist). For pharmacy refills or questions, please call [phone] and have your [facility] number,prescription number, and credit card handy. If you prefer to machine operator hop picker your medication at a pharmacy other than the [facility] 24 hour pharmacy, choose to speak to [...] bleeding problems. Do not take any vitamins, relo-day-myhknwg drugs, or herbal products without talking to [...] irregular heartbeat. After you call 911, the gill box operator may tell you to chew 1 [...] December 24, 2022 Content Version: 14.1 ?? [employer]. Care instructions adapted under license by your healthcare professional. If you have questions about a medical condition or this instruction, always ask your healthcare professional. [employer] disclaims any warranty or liability for your [...] you call your doctor or other health health care / medical job titles? - You have new or increased shortness [...] Doctor, Wilmer Ludwig) per MALLY protocol [address] / [place] [address] No future appointments. Ask your doctors about [...] your doctors by calling the appointmentcenter at [facility]: . WHAT I CAN DO TO IMPROVE MY HEALTH Staff, please copy and paste all discharge instructions related to core measures, diabetes, PICC line, puga, all Pharmacy (Antibiotics, Warfarin), nutrition, perinatal social worker, patient/speech, wound care, and ostomy and delete [...] through Monday to speak with a lifestyle gymnastics coach who can assist you with quitting smoking, getting active and fit, losing weight, healthy eating, stress reduction and other health related issues. You can also access health self-management programs at [employer] These programs are available for your purchase from non [facility] vendors at a discounted rate and solely for yourbenefit: Life Station: For people living alone or at risk for a fall or other emergency, a medical alert system from [employer] provides 24/ help at the push of a button. Call or visit www.gripNote for additional information or to order a medical alert system. Mom's Meals: Good nutrition is important to your health. Mom???s Meals [employer] will deliver fresh prepared, nutritious meals to your home. There is a large variety including healthy menus to support medical conditions and they remain fresh for 2 weeks in your refrigerator. [facility] hasnegotiated a discounted griffin for you of $6.99 per meal including delivery. Visit the website [email or web address] or call [phone] to learn more and place an order [...] assessment and plan. Nicolle Peace DO PGY-3 [facility] Residency 10/21/2024 3:55 PM Associated attestation - Keyon Jeffries M.D., M.D. - 10/23/2024 7:32 PM PDT Agree with DC Summary. Patient was examined and discussed with resident physician, Dr. NICOLLE PEACE DO, PGY-3 during morning rounds. Agree with assessment and treatment plan. Please see resident note for details. Electronically signed by: KEYON JEFFRIES MD Department of Family Medicine [facility] 10/23/2024 7:32 PM documented in this encounter [...] to see this list. Outpatient Anticoagulation Service [address] [place] [id number] , Monday-Monday 8:30 AM to 4:30 PM [...] be determined when lab result available. Call [phone] for all further warfarin dosing and follow up lab instructions. --> Take warfarin in the evening after 6 PM or at bedtime. N/A --> Next Lab Date: 10/22/2024, (Before noon if possible). Outpatient Anticoagulation Services will contact you for further dosage instructions. Sincerely, [facility] Inpatient Pharmacy Department What if [...] bleeding problems. Do not take any vitamins, yyfq-wth-yabpofh drugs, or herbal products without talking to [...] irregular heartbeat. After you call 911, the gill box operator may tell you to chew 1 [...] December 24, 2022 Content Version: 14.1 ?? [employer]. Care instructions adapted under license by your healthcare professional. If you have questions about a medical condition or this instruction, always ask your healthcare professional. [employer] disclaims any warranty or liability for your [...] mental health assistance and are a [facility] health plan member, please call either 911 witham health services Behavioral Health Helpline . If you are not a [facility] member call the National Suicide Prevention Lifeline . Appointment and Advice [place]: If you have medical problems or concerns after you go home but before your hospital discharge appointment, please call [phone] ([phone]) . In order foryour call to be [...] you see your doctor, please call our [place] Discharge Nurse advice service at This service is available seven days a week, 24 hours a day. After you follow up with Wilmer Ludwig), if you have medical concerns, please call the appointment center at [facility]: . Have your [facility] card handy. documented [...] secondary hypercoag, SSS s/p PPM (05/2023 - [email or web address]), HFpEF (EF 55-60%), HTN, HLD, CKD 3, [...] Microbiology Results ID Description Status Collection Date/Time [id number] BLOOD CULTURE Final result 10/14/24 1555 Result Value Flag Comment FINAL RESULT No growth at 5 days. [id number] BLOOD CULTURE Final result 10/14/24 1614 Result Value Flag Comment FINAL RESULT No growth at 5 days. [id number] CLOSTRIDIUM DIFFICILE GDH AG, TOXINS A, B W REFLEX TO PCR Final result 10/15/24 1011 Result Value Flag Comment CLOSTRIDIOIDES (CLOSTRIDIUM) DIFFICILE AG AND TOXINS A+B, STOOL Negative A finding of ???Indeterminate??? represents discrepant immunoassay results obtained for GDH (antigen specific to C. difficile) and toxin production. Molecular testing (nucleic acid amplification) will follow to confirm results. [id number] BACTERIAL GI PANEL (SALMONELLA, SHIGELLA/EIEC, CAMPYLOBACTER, SHIGA [...] the aortic knob. TRANSTHORACIC ECHO, LIMITED (TTE) [[id number]] 05/23/2023 INTERPRETATION SUMMARY: - Limited study for [...] Metoprolol changed to carvedilol 10/2012 while in [place] for uncontrolled Hypertension Start hydrochlorothiazide 12.5 mg [...] ARTERY STENOSIS Overview: Renal ultrasound 11/02/12 from [place]: 1. Unable to see the origin of the left renal artery due to calcification. There are elevated velocities in the left renal artery suggestion a hemodynamically significant stenosis. If clinically indicated, an angiogram with intent to treat could be considered. 2. Normal ultrasound appearance of the kidneys, bilaterally. Cardiac MRI performed on 11/02/12 in [place]: indication: severe Hypertension with suspected severe concentric [...] for afib ELEVATED TROPONIN I HX OF MA, UNSPECIFIED TYPE RECURRENT UTI SUPRAVENTRICULAR TACHYCARDIA, NONSUSTAINED [...] Electronically signed by: Nicolle Peace DO PGY-3 [facility] Medicine Residency 10/20/2024 6:10 PM Associated attestation - Keyon Jeffries M.D., M.D. - 10/20/2024 7:04 PM PDT [facility] Patient: Saira Belle Date: 10/20/2024 : 1945 Admission Date: 10/14/2024 Attending: KEYON JEFFRIES MD Patient was seen and examined independent of resident, Dr. NICOLLE PEACE DO, PGY-3 during morning rounds. Patient care discussed with resident and agree with assessment and plan. See resident's progress note for 10/20/2024. Electronically signed by: KEYON JEFFRIES MD Department of Family Medicine [facility] 10/20/2024 7:04 PM * Eder Farnsworth (D.O.), [...] secondary hypercoag, SSS s/p PPM (05/2023 - [email or web address]), HFpEF (EF 55-60%), HTN, HLD, CKD 3, [...] Microbiology Results ID Description Status Collection Date/Time [id number] BLOOD CULTURE Preliminary result 10/14/24 1555 Result Value Flag Comment PRELIMINARY RESULT: No growth at 4 days. [id number] BLOOD CULTURE Preliminary result 10/14/24 1614 Result Value Flag Comment PRELIMINARY RESULT: No growth at 4 days. [id number] CLOSTRIDIUM DIFFICILE GDH AG, TOXINS A, B W REFLEX TO PCR Final result 10/15/24 1011 Result Value Flag Comment CLOSTRIDIOIDES (CLOSTRIDIUM) DIFFICILE AG AND TOXINS A+B, STOOL Negative A finding of ???Indeterminate??? represents discrepant immunoassay results obtained for GDH (antigen specific to C. difficile) and toxin production. Molecular testing (nucleic acid amplification) will follow to confirm results. [id number] BACTERIAL GI PANEL (SALMONELLA, SHIGELLA/EIEC, CAMPYLOBACTER, SHIGA [...] the aortic knob. TRANSTHORACIC ECHO, LIMITED (TTE) [[id number]] 05/23/2023 INTERPRETATION SUMMARY: - Limited study for [...] Metoprolol changed to carvedilol 10/2012 while in [place] for uncontrolled Hypertension Start hydrochlorothiazide 12.5 mg [...] ARTERY STENOSIS Overview: Renal ultrasound 11/02/12 from [place]: 1. Unable to see the origin of the left renal artery due to calcification. There are elevated velocities in the left renal artery suggestion a hemodynamically significant stenosis. If clinically indicated, an angiogram with intent to treat could be considered. 2. Normal ultrasound appearance of the kidneys, bilaterally. Cardiac MRI performed on 11/02/12 in [place]: indication: severe Hypertension with suspected severe concentric [...] for afib ELEVATED TROPONIN I HX OF MA, UNSPECIFIED TYPE RECURRENT UTI SUPRAVENTRICULAR TACHYCARDIA, NONSUSTAINED [...] Electronically signed by: Eder Farnsworth D.O., PGY-3 [facility] Medicine 10/19/2024 9:01 AM Associated attestation - Keyon Jeffries M.D., M.D. - 10/20/2024 11:12 AM PDT [facility] Patient: Saira Belle Date: 10/19/2024 : 1945 Admission Date: 10/14/2024 Attending: KEYON JEFFRIES MD Patient was seen and examined independent of resident, Dr. Eder Farnsworth DO, PGY-3 during morningrounds. Patient care discussed with resident and agree with assessment and plan. See resident's progress note for 10/19/2024. Electronically signed by: KEYON JEFFRIES MD Department of Family Medicine [facility] 10/20/2024 11:11 AM * Zeina Fernandez M.D., [...] secondary hypercoag, SSS s/p PPM (05/2023 - [email or web address]), HFpEF (EF 55-60%), HTN, HLD, CKD 3, chronic UTIs (on Macrobid for years), and prior hospitalizations for a fib (secondary to dehydration and orthostatic hypotension) who presented to [facility] for GI symptoms and diarrhea and was [...] PRN Meds: Amiodarone intraVENOUS 0.5 mg/min (10/18/24 6795) Sodium Chloride 0.9 % with KCl intraVENOUS 75 mL/hr (10/17/24 1175) Carvedilol 25 mg Oral BID dilTIAZem 120 [...] Microbiology Results ID Description Status Collection Date/Time [id number] BLOOD CULTURE Preliminary result 10/14/24 1555 Result Value Flag Comment PRELIMINARY RESULT: No growth at 3 days. [id number] BLOOD CULTURE Preliminary result 10/14/24 1614 Result Value Flag Comment PRELIMINARY RESULT: No growth at 3 days. [id number] CLOSTRIDIUM DIFFICILE GDH AG, TOXINS A, B W REFLEX TO PCR Final result 10/15/24 1011 Result Value Flag Comment CLOSTRIDIOIDES (CLOSTRIDIUM) DIFFICILE AG AND TOXINS A+B, STOOL Negative A finding of ???Indeterminate??? represents discrepant immunoassay results obtained for GDH (antigen specific to C. difficile) and toxin production. Molecular testing (nucleic acid amplification) will follow to confirm results. [id number] BACTERIAL GI PANEL (SALMONELLA, SHIGELLA/EIEC, CAMPYLOBACTER, SHIGA [...] the aortic knob. TRANSTHORACIC ECHO, LIMITED (TTE) [[id number]] 05/23/2023 INTERPRETATION SUMMARY: - Limited study for [...] Metoprolol changed to carvedilol 10/2012 while in [place] for uncontrolled Hypertension Start hydrochlorothiazide 12.5 mg [...] ARTERY STENOSIS Overview: Renal ultrasound 11/02/12 from [place]: 1. Unable to see the origin of the left renal artery due to calcification. There are elevated velocities in the left renal artery suggestion a hemodynamically significant stenosis. If clinically indicated, an angiogram with intent to treat could be considered. 2. Normal ultrasound appearance of the kidneys, bilaterally. Cardiac MRI performed on 11/02/12 in [place]: indication: severe Hypertension with suspected severe concentric [...] for afib ELEVATED TROPONIN I HX OF MA, UNSPECIFIED TYPE RECURRENT UTI SUPRAVENTRICULAR TACHYCARDIA, NONSUSTAINED [...] Electronically signed by: Eder Farnsworth D.O., PGY-3 [facility] 10/18/2024 7:56 AM Associated attestation - Keyon Jeffries M.D., M.D. - 10/18/2024 7:16 PM PDT [facility] Patient: Saira Belle Date: 10/18/2024 : 1945 Admission Date: 10/14/2024 Attending: KEYON JEFFRIES MD Patient was seen and examined independent of resident, Dr. Eder Farnsworth DO, PGY-3 during morningrounds. Patient care discussed with resident and agree with assessment and plan. See resident's progress note for 10/18/2024. Electronically signed by: KEYON JEFFRIES MD Department of Family Medicine [facility] 10/18/2024 7:16 PM * Eder Farnsworth (D.O.), [...] secondary hypercoag, SSS s/p PPM (05/2023 - [email or web address]), HFpEF (EF 55-60%), HTN, HLD, CKD 3, chronic UTIs (on Macrobid for years), and prior hospitalizations for a fib (secondary to dehydration and orthostatic hypotension) who presented to [facility] for GI symptoms and diarrhea and was [...] Microbiology Results ID Description Status Collection Date/Time [id number] BLOOD CULTURE Preliminary result 10/14/24 1555 Result Value Flag Comment PRELIMINARY RESULT: No growth at 2 days. [id number] BLOOD CULTURE Preliminary result 10/14/24 1614 Result Value Flag Comment PRELIMINARY RESULT: No growth at 2 days. [id number] CLOSTRIDIUM DIFFICILE GDH AG, TOXINS A, B W REFLEX TO PCR Final result 10/15/24 1011 Result Value Flag Comment CLOSTRIDIOIDES (CLOSTRIDIUM) DIFFICILE AG AND TOXINS A+B, STOOL Negative A finding of ???Indeterminate??? represents discrepant immunoassay results obtained for GDH (antigen specific to C. difficile) and toxin production. Molecular testing (nucleic acid amplification) will follow to confirm results. [id number] BACTERIAL GI PANEL (SALMONELLA, SHIGELLA/EIEC, CAMPYLOBACTER, SHIGA [...] the aortic knob. TRANSTHORACIC ECHO, LIMITED (TTE) [[id number]] 05/23/2023 INTERPRETATION SUMMARY: - Limited study for [...] Metoprolol changed to carvedilol 10/2012 while in [place] for uncontrolled Hypertension Start hydrochlorothiazide 12.5 mg [...] ARTERY STENOSIS Overview: Renal ultrasound 11/02/12 from [place]: 1. Unable to see the origin of the left renal artery due to calcification. There are elevated velocities in the left renal artery suggestion a hemodynamically significant stenosis. If clinically indicated, an angiogram with intent to treat could be considered. 2. Normal ultrasound appearance of the kidneys, bilaterally. Cardiac MRI performed on 11/02/12 in [place]: indication: severe Hypertension with suspected severe concentric [...] for afib ELEVATED TROPONIN I HX OF MA, UNSPECIFIED TYPE RECURRENT UTI SUPRAVENTRICULAR TACHYCARDIA, NONSUSTAINED [...] Electronically signed by: Eder Farnsworth D.O., PGY-3 [facility] 10/17/2024 6:23 PM Associated attestation - Gume [...] secondary hypercoag, SSS s/p PPM (05/2023 - [employer]), HFpEF (EF 55-60%), HTN, HLD, CKD 3, chronic UTIs (on Macrobid for years), and prior hospitalizations for a fib (secondary to dehydration and orthostatic hypotension) who presented to [facility] for GI symptoms and diarrhea and was [...] Microbiology Results ID Description Status Collection Date/Time [id number] BLOOD CULTURE Preliminary result 10/14/24 1555 Result Value Flag Comment PRELIMINARY RESULT: No growth at 1 day. [id number] BLOOD CULTURE Preliminary result 10/14/24 1614 Result Value Flag Comment PRELIMINARY RESULT: No growth at 1 day. [id number] CLOSTRIDIUM DIFFICILE GDH AG, TOXINS A, B W REFLEX TO PCR Final result 10/15/24 1011 Result Value Flag Comment CLOSTRIDIOIDES (CLOSTRIDIUM) DIFFICILE AG AND TOXINS A+B, STOOL Negative A finding of ???Indeterminate??? represents discrepant immunoassay results obtained for GDH (antigen specific to C. difficile) and toxin production. Molecular testing (nucleic acid amplification) will follow to confirm results. [id number] BACTERIAL GI PANEL (SALMONELLA, SHIGELLA/EIEC, CAMPYLOBACTER, SHIGA [...] the aortic knob. TRANSTHORACIC ECHO, LIMITED (TTE) [[id number]] 05/23/2023 INTERPRETATION SUMMARY: - Limited study for [...] Metoprolol changed to carvedilol 10/2012 while [place] for uncontrolled Hypertension Start hydrochlorothiazide 12.5 mg [...] ARTERY STENOSIS Overview: Renal ultrasound 11/02/12 from [place]: 1. Unable to see the origin of the left renal artery due to calcification. There are elevated velocities in the left renal artery suggestion a hemodynamically significant stenosis. If clinically indicated, an angiogram with intent to treat could be considered. 2. Normal ultrasound appearance of the kidneys, bilaterally. Cardiac MRI performed on 11/02/12 in [place]: indication: severe Hypertension with suspected severe concentric [...] for afib ELEVATED TROPONIN I HX OF MA, UNSPECIFIED TYPE RECURRENT UTI SUPRAVENTRICULAR TACHYCARDIA, NONSUSTAINED [...] Electronically signed by: Eder Farnsworth D.O., PGY-3 [facility] Medicine 10/16/2024 2:54 PM Associated attestation - [...] PAPITO HUTCHINSON MD Department of Internal Medicine [facility] Pager: [phone] Please page between the hours of 7pm-7am [...] secondary hypercoag, SSS s/p PPM (05/2023 - [email or web address]), HFpEF (EF 55-60%), HTN, HLD, CKD 3, chronic UTIs (on Macrobid for years), and prior hospitalizations for a fib (secondary to dehydration and orthostatic hypotension) who presented to [facility] for GI symptoms and diarrhea and was [...] no unusual food/exposures. She went [place] 2 [place] ago. Started w/ abdominal [...] well healed. Clean and Intact. Pacemaker: Device: [employer] (Guidant) Model, Accolade L331 DOI: 05/23/2023 [...] Microbiology Results ID Description Status Collection Date/Time [id number] BLOOD CULTURE In process 10/14/24 1555 [id number] BLOOD CULTURE In process 10/14/24 1614 [id number] CLOSTRIDIUM DIFFICILE GDH AG, TOXINS A, B W REFLEX TO PCR Final result 10/15/24 1011 Result Value Flag Comment CLOSTRIDIOIDES (CLOSTRIDIUM) DIFFICILE AG AND TOXINS A+B, STOOL Negative A finding of ???Indeterminate??? represents discrepant immunoassay results obtained for GDH (antigen specific to C. difficile) and toxin production. Molecular testing (nucleic acid amplification) will follow to confirm results. [id number] BACTERIAL GI PANEL (SALMONELLA, SHIGELLA/EIEC, CAMPYLOBACTER, SHIGA [...] the aortic knob. TRANSTHORACIC ECHO, LIMITED (TTE) [[id number]] 05/23/2023 INTERPRETATION SUMMARY: - Limited study for [...] Metoprolol changed to carvedilol 10/2012 while [place] for uncontrolled Hypertension Start hydrochlorothiazide 12.5 mg [...] ARTERY STENOSIS Overview: Renal ultrasound 11/02/12 from [place]: 1. Unable to see the origin of the left renal artery due to calcification. There are elevated velocities in the left renal artery suggestion a hemodynamically significant stenosis. If clinically indicated, an angiogram with intent to treat could be considered. 2. Normal ultrasound appearance of the kidneys, bilaterally. Cardiac MRI performed on 11/02/12 in [place]: indication: severe Hypertension with suspected severe concentric [...] for afib ELEVATED TROPONIN I HX OF MA, UNSPECIFIED TYPE RECURRENT UTI SUPRAVENTRICULAR TACHYCARDIA, NONSUSTAINED [...] Electronically signed by: Eder Farnsworth D.O., PGY-3 [facility] 10/15/2024 2:28 PM * Kelly Monreal M.D., [...] 4yrs and over (FLUVIRIN) (Influenza) 03/10/2015 PCV13 ([id number]) (Pneumococcal conjugate, 13 valent) 03/10/2015 PPSV23 (Pneumococcal polysaccharide) 07/15/2011 Tdap (ADACEL) (Tetanus, diphtheria, acellular pertussis) 08/12/2022 Tdap (Tetanus, diphtheria, acellular pertussis) 08/01/2012 ZOS (Herpes zoster recombinant) Shingrix 08/06/2019 ZOS (Zostervirus live, shingles) 08/01/2012 ALLERGIES: Allergies Allergen Reactions Demerol [Meperidine Hcl] Meperidine Skin Rash and/or Hives Non-Steroidal Anti-Inflammatory Agents [id number] Heart Failure. Exception to this NSAID intolerance is aspirin 81- 325mg daily and topical or ophthalmic nsaids' [id number] Heart Failure. Exception to this NSAID intolerance is aspirin 81- 325mg daily and topical or ophthalmic nsaids' Codeine And Opiate Derivatives Skin Rash and/or Hives Hydrochlorothiazide Hyponatremia in setting of HCTZ Hyponatremia in setting of HCTZ Oxycodone-Acetaminophen Skin Rash and/or Hives Oxycodone-Aspirin Skin Rash and/or Hives Penicillins Class Skin Rash and/or Hives Cefuroxime Axetil Skin Rash and/or Hives Noted with antibiotics given in [place]. Noted with antibiotics given in [place]. Sulfa (Sulfonamide Antibiotics) Skin Rash and/or Hives [...] encounter of 05/23/23 TRANSTHORACIC ECHO, LIMITED (TTE) [[id number]] 05/23/2023 10:02 AM Interpretation Summary Limited study [...] SUPRAVENTRICULAR TACHYCARDIA, NONSUSTAINED RECURRENT UTI HX OF MA, UNSPECIFIED TYPE ELEVATED TROPONIN I ANTICOAGULATION MONITORING, INR 2.0-3.0 IP referral for afib ATRIAL FIBRILLATION, UNSPECIFIED DIASTOLIC HEART FAILURE, CHRONIC (HFPEF) OSTEOARTHRITIS OF LEFT KNEE PREDIABETES ATHEROSCLEROSIS AORTA BILATERAL RENAL ARTERY STENOSIS Renal ultrasound 11/02/12 from [place]: 1. Unable to see the origin of the left renal artery due to calcification. There are elevated velocities in the left renal artery suggestion a hemodynamically significant stenosis. If clinically indicated, an angiogram with intent to treat could be considered. 2. Normal ultrasound appearance of the kidneys, bilaterally. Cardiac MRI performed on 11/02/12 in [place]: indication: severe Hypertension with suspected severe concentric [...] display. Or No diagnosis found. 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 Patient has a history of HTN, diverticulosis of colon, atherosclerosis of aorta, diastolic heart failure, AFIB, hx of MA, recurrent UTI and AFIB w/RVR. TOOL HONING MACHINE SET UP OPERATOR spoke to patient to complete psychosocial assessment. [...] 2 kids, with a son residing in [place]. Patient reports she is independent with her [...] as their surrogate decision maker. RESOURCES DISCUSSED/PROVIDED [facility] Community Resource Pamphlet (caregiver agencies included) LCP: Advance Directive and surrogate decision maker discussed SOCIAL DETERMINANTS OF HEALTH SURVEY Patient/family: denied any needs TOOL HONING MACHINE SET UP OPERATOR: provided patient education and linkage to [facility] and resources based on patient's answers and needs SOCIAL WORK INTERVENTION- LONG VIEW OF CARE Reason for referral: education/resources Psychosocial barriers/risk for readmission: no Consult request addressed: yes SECURED RESOURCES Referrals: see resources provided list TALENT DIRECTOR Follow up/Warm Handoff: During Hospitalization ASSESSMENT Siara Belle, [id number], is a 79 year old female, referred byMD on 10/21/2024 Interview done with: patient/family Primary care provider is: Wilmer Ludwig) Relevant medical diagnosis requiring social work intervention: no SOCIAL SITUATION Patient lives: at home Social Network: family/friends Marital status: see summary Ethnicity: White [73] Language Spoken: see summary Caodaism/spiritual belief: did not disclose Cultural/spiritual/anabaptist factors influencing treatment: No PATIENT FUNCTIONING Functional [...] MEDICARE / Plan: SNR ADV D(E) PLAN [id number] / Product Type: Medicare - Risk (for [place] only) / Housing issues: none reported or identified FINANCIAL RESOURCES Income source: see summary Adequate to meet needs: marginally adequate CONTACTS Extended Emergency Contact Information Primary Emergency Contact: JARRETT DE LUNA Address: [address], [address], [place] [address] [facility] Mobile Relation: Significant other Secondary Emergency Contact: [place] [address] [facility] Mobile Relation: Daughter Electronically signed by: Haris Lala LCSW Department of Medical Social Work [facility] [phone] ([place]) * Orlin Galo (D.OLamar), D.OLamar - 10/14/2024 3:16 PM PDTAssociated Order(s): INPATIENT CARDIOLOGY CONSULT INPATIENT CARDIOVASCULAR NEW CONSULTATION NOTE 10/14/2024 Saira Belle : 1945 REFERRING MD : Dr. Shine PRIMARY CATERPILLAR OPERATOR: Dr Roche Saira Belle is a 79 year old female with long h/o Afib, secondary hypercoag, SSS s/p PPM, HFpEF,HTN, HLD, CKD 3, who presented to [facility] for GI sxs and diarrhea and was [...] TROPONIN I NOT CURRENT SMOKER HX OF MA, UNSPECIFIED TYPE OSTEOARTHRITIS OF RIGHT FOOT ANEMIA [...] HFpEF,HTN, HLD, CKD 3, who presented to [facility] for GI sxs and diarrhea and was [...] Dr. Galo Department of Internal Medicine, Cardiology [facility] 10/14/2024 3:16 PM documented in [...] case discussed with luz GUSMAN. Patient Address: [address] [place] [address] [place] [address] Phone: [facility] ONLY TEXT [phone] Address/Phone confirmed: Yes Transportation: Discharge Transportation: Private [...] (++), Name of MD: Dr Jeffries . senior benefits manager to remain available for any emerging [...] call light and personal items within reach. Code And Test Clerk socks provided. Activity supervised as needed. Safety [...] signed by: Shante Anglin Clinical Pharmacist Specialist [facility] 10/19/2024 8:45 AM * Abi Puckett.Dorita), [...] withcare. 2015: Spoke to Dr. Omar Pichardo, marine transport professionals MOD. Informed that pt 2000 latest BP [...] signed by: RIGOBERTO AVITIA PHARMD Inpatient Pharmacist [facility] 10/16/2024 at 4:34 PM * Mitch Sanchez [...] PATIENT PROGRESS: Problem: HD Fall Risk Intervention: [place] Fall Risk Interventions Note: Fall precaution in [...] Farnsworth Lives with and cared for by: [facility] with significant other Jarrett Level of function prior to admission: independent, ambulate, drives, retired Mentation: aox4 Respiratory: room air Home DME's: none Transport type to home: Jar[place] Address on demographics verified: Yes DC Plan: DC to place of residence when ready Chart reviewed/Case discussed with luz GUSMAN. Home Medical Center: Member Residence Area: [facility] Admission Source: Diagnosis: AFIB RVR,LEUKOCYTOSIS Readmission: ; Readmission Score (LACE) Readmission Score (LACE) Total: 9 L-LENGTH OF STAY SCORE: 1 A-EMERGENT ADMISSION SCORE: 3 C-CHARLSON COMORBIDITY SCORE: 5 E-NUMBER OF ED VISITS SCORE: 0 PATIENT INFORMATION Saira Belle is a 79 year old female Language: Preferred Spoken Language: Rwandan Die Maker Apprentice Services Used: Die Maker Apprentice Services Used: NO - Patient preferred to use own Rwandan skills, Legal information: Legal Information: None Address: [address] [place] [address] Phone: [facility] ONLY TEXT [phone] Information Source/ Informant (relationship, name, phone): Information provided by: Patient BENEFITS/FINANCIAL INFO Primary Insurance Coverage(s):Payor: MEDICARE / Plan: SNR ADV D(E) PLAN [id number] / Product Type: Medicare - Risk (for [place] only) / Secondary Insurance Coverage(s): None Is [...] of life: No Explored impact of cultural, anabaptist, spiritual and/or personal beliefs on healthcare decisions: [...] (++), Name of MD: Dr Farnsworth . senior benefits manager to remain available for any emerging discharge planning needs/issues. Please call casemanager for any questions/changes in patient's status. In HOSPITAL CHART ONLY: Click here to launch flowsheet to view complete CM Assessment/Discharge Plan. This link is not intended to be used in Chart Review. Electronically signed by: TATIANA COFFMAN contract writer 10/15/2024 4:25 PM * Keke Nieves R.N., [...] 0800. Electronically signed by: Anish Dill, Pharm.D. [facility] 10/15/2024 1:38 AM * Summer Blanco R.N., R.N. - 10/14/2024 7:13 PM PDT MID-SHIFT CARE PLAN UPDATE: Problem: HD Fall Risk Intervention: [place] Fall Risk Interventions Note: Fall precautions in [...] signed by: Shante Anglin Clinical Pharmacist Specialist [facility] 10/14/2024 4:13 PM documented in this encounter ED Notes * Eliseo Power), R.N. - 10/14/2024 1:10 PM PDT Assumed care of pt. No acute distress noted. Pt awake alert and oriented. Resp even and unlabored. Pt denies any complaints of chest pain or sob at time. 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 Pt here for evaluation of llq abd [...] Skin Rash and/or Hives Non-Steroidal Anti-Inflammatory Agents [id number] Heart Failure. Exception to this NSAID intolerance is aspirin 81- 325mg daily and topical or ophthalmic nsaids' [id number] Heart Failure. Exception to this NSAID intolerance is aspirin 81- 325mg daily and topical or ophthalmic nsaids' Codeine And Opiate Derivatives Skin Rash and/or Hives Hydrochlorothiazide Hyponatremia in setting of HCTZ Hyponatremia in setting of HCTZ Oxycodone-Acetaminophen Skin Rash and/or Hives Oxycodone-Aspirin Skin Rash and/or Hives Penicillins Class Skin Rash and/or Hives Cefuroxime Axetil Skin Rash and/or Hives Noted with antibiotics [place] in [place]. Noted with antibiotics given in [place]. Sulfa (Sulfonamide Antibiotics) Skin Rash and/or Hives [...] 10/14/2024 4:14 PM Department of Emergency Medicine [facility] * Arlen Chase), R.N. - [...] (141 lb 5 oz). Weight history: stable [place]/Desired Body Weight (kg): 58 kg (127 lb 13.9 oz) (sandhu 22) % of [place]/Desired Body Weight: 110.52 % Nutrition-related medications: PACERONE, [...] on: actual body weight 64.1kg Calories (Kcal/Day): 9422-2154 Calorie Based On: ACTUAL BODY WEIGHT;25-30 KCAL/KG Protein (Gm/Day): 64-77 Protein Based On: ACTUAL BODY WEIGHT;1.0 - 1.2 GM/KG Fluids (ML/Day): 6308-8736 Fluids Based On: 1 ML/KCAL Current Diet [...] Electronically signed by Chante Nobles, MPH, RD [facility] Food and Nutrition Services Ext. [phone] 10/21/2024 11:12 AM documented in this encounter Plan of Treatment Upcoming Encounters Date Type Department Care Team (Late st Contact Info) Description 03/05/2025 10:00 AM PDT Office Visit CARDIOLOGY [address] [place] [address] Melanie Osuna (N.P.), N.P. [address] [place] [address] documented as of this encounter [...] AM PDT) NEUTROPHILS %, AUTOMATED COUNT 79.6 [facility] LYMPHOCYTES %, AUTOMATED COUNT 10.5 [facility] MONOS %, AUTO 5.4 [facility] EOSINOPHILS %, AUTOMATED COUNT 3.2 [facility] BASOPHILS %, AUTOMATED COUNT 0.7 [facility] IMMATURE GRANULOCYTES %, AUTOMATED COUNT 1 [facility] RBC NUCLEATED AUTO COUNT, BLD 0 <=0 % [facility] NEUTROPHILS, ABSOLUTE, AUTOMATED COUNT 6.98 1.80 - 7.70 x1000/mcL [facility] LYMPHOCYTES, AUTOMATED COUNT 0.92(L) 1.00 - 3.60 x1000/mcL [facility] MONOCYTES, AUTOMATED COUNT 0.47 0.10 - 1.00 x1000/mcL [facility] EOSINOPHILS, AUTOMATED COUNT 0.28 0.00 - 0.70 x1000/mcL [facility] BASOPHILS, AUTOMATED COUNT 0.06 0.00 - 0.20 x1000/mcL [facility] IMMATURE GRANULOCYTES, AUTOMATED COUNT 0.05 0.01 - 0.09 x1000/mcL [facility] BLOOD / Unknown 10/21/2024 4 :37 AM PDT Narrative [facility] - 10/21/2024 5:55 AM PDT Catalino Shine M.D. HEMATOLOGY Performing Organization Address City/[facility]/ZIP Co de Phone Number [facility] [address] [place] [address] * (ABNORMAL) PHOSPHATE (10/21/2024 4:37 AM PDT) PHOSPHORUS 2.6(L) 2.7 - 4.5 mg/dL [facility] BLOOD / Unknown 10/21/2024 4 :37 AM PDT Nicolle Sanchez.Ricky Peace D.O. SERUM CERTIFIED MEDICAL CODING SPECIALIST RY [facility] [address] [place] [address] * (ABNORMAL) ELECTROLYTE PANEL (NA, K, CL, CO2, ANION GAP) (10/21/2024 4:37 AM PDT) SODIUM 127(L) 135 - 145 mEq/L [facility] POTASSIUM 3.6 3.5 - 5.0 mEq/L [facility] CHLORIDE 96(L) 101 - 111 mEq/L [facility] CO2 22 21 - 31 mEq/L [facility] ANION GAP (NA - (CL + CO2)) 9 3 - 11 mEq/L [facility] BLOOD / Unknown 10/21/2024 4 :37 AM PDT Keyon Peralta) Azael Quiroz SER UM CHEMISTRY Performing Organization Address [facility] Co de Phone Number [facility] [address] [place] [address] * MAGNESIUM (10/21/2024 4:37 AM PDT) MAGNESIUM 2.3 1.7 - 2.8 mg/dL [facility] Comment: Magnesium results between 4.9 mg/dL and 9.7 mg/dL are not considered critical for patients receiving MgSO4 therapy. BLOOD / Unknown 10/21/2024 4 :37 AM PDT Eder Sanchez.Navneet) Javad Witt SERUM CHEMISTRY Performing Organization Address [facility]/ZIP Co de Phone Number [facility] [address] [place] [address] * (ABNORMAL) INR (10/21/2024 4:37 AM PDT) PT INR 3.1(H) 0.8 - 1.2 [facility] BLOOD / Unknown 10/21/2024 4 :37 AM PDT Catalino Peralta) Rl Quiroz COAGULATION Performing Organization Address City/[facility]/ZIP Co de Phone Number [facility] [address] [place] [address] * (ABNORMAL) GLUCOSE, FASTING (10/21/2024 4:37 AM PDT) GLUCOSE, FASTING 117(H) 70 - 99 mg/dL [facility] Comment: A repeatable fasting blood glucose [...] Catalino Peralta) Rl Quiroz SERUM CHEMISTR Y [facility] [address] [place] [address] * CREATININE (10/21/2024 4:37 AM PDT) CREATININE 0.73 <=1.10 mg/dL [facility] EGFR, CREATININE-BASED FORMULA (CKD-EPI 2020) 83 >=60 mL/min/BS A [facility] Comment: GFR estimate is by the [...] Quiroz SERUM CHEMISTR Y Performing Organization Address City/[facility]/ZIP Co de Phone Number [facility] [id number] [place] [address] * BUN (10/21/2024 4:37 AM PDT) BUN 8 <=18 mg/dL [facility] BLOOD / Unknown 10/21/2024 4 :37 AM PDT Catalino Peralta) Rl Quiroz SERUM CHEMISTR Y Performing Organization Address [facility] Co de Phone Number [address] [address] * (ABNORMAL) ELECTROLYTE PANEL (NA, K, CL, CO2, ANION GAP) (10/21/2024 4:37 AM PDT) SODIUM 125(L) 135 - 145 mEq/L [facility] POTASSIUM 3.5 3.5 - 5.0 mEq/L [facility] CHLORIDE 94(L) 101 - 111 mEq/L [facility] CO2 22 21 - 31 mEq/L [facility] ANION GAP (NA - (CL + CO2)) 9 3 - 11 mEq/L [facility] BLOOD / Unknown 10/21/2024 4 :37 AM PDT Catalino Peralta) Rl Quiroz SERUM CHEMISTR Y Performing Organization Address City/[facility]/ZIP Co de Phone Number [facility] [id number] [place] [address] * (ABNORMAL) CBC W AUTOMATED DIFFERENTIAL (10/21/2024 4:37 AM PDT) WBC'S AUTO 8.8 4.0 - 11.0 x1000/mcL [facility] RBC, AUTO 3.45(L) 3.70 - 5.20 Mill/mcL [facility] HGB 9.7(L) 11.5 - 16.0 g/dL [facility] HCT, AUTO 28.7(L) 35.0 - 47.0 % [facility] MCV 83.2 81.0 - 99.0 fL [facility] MCH 28.1 25.0 - 35.0 pg/cell [facility] MCHC 33.8 30.0 - 35.0 g/dL [facility] RDW, BLOOD 14.3 11.5 - 16.0 % [facility] PLATELETS, AUTOMATED COUNT 494(H) 130 - 400 x1000/mcL [facility] BLOOD / Unknown 10/21/2024 4 :37 AM PDT Catalino Peralta) Rl Quiroz HEMATOLOGY Performing Organization Address [facility] Co de Phone Number [facility] [address] [place] [address] * (ABNORMAL) ELECTROLYTE PANEL (NA, K, CL, CO2, ANION GAP) (10/20/2024 11:27 PM PDT) SODIUM 123(L) 135 - 145 mEq/L [facility] POTASSIUM 3.9 3.5 - 5.0 mEq/L [facility] CHLORIDE 92(L) 101 - 111 mEq/L [facility] CO2 20(L) 21 - 31 mEq/L [facility] ANION GAP (NA - (CL + CO2)) 11 3 - 11 mEq/L [facility] BLOOD / Unknown 10/20/2024 1 1:27 PM PDT Keyon Peralta) Azael Quiroz SER CHEMISTRY Performing Organization Address City/[facility]/ZIP Co de Phone Number [facility] [address] [place] [address] * OSMOLALITY, URINE (10/20/2024 9:59 PM PDT) OSMOLALITY, URINE 625 50 - 1,200 mOsm/kg [facility] Comment: Reference Range for Urine Osmolality: Random Specimen : 50-1200 mOsm/kg H2O 24 Hr Specimen: Age: 0-1 Month : 50-645 mOsm/kg H2O Age: 1 Month-Adult : 50-900 mOsm/kg H2O URINE 10/20/2024 9:59 PM PDT Keyon Peralta) Azael GARCIA CHEMISTRY Performing Organization Address [facility] Phone Number [facility] [address] [place] [address] * SODIUM, URINE (10/20/2024 9:59 PM PDT) SODIUM, URINE 56 mEq/L [facility] Comment: To precisely quantify excretion, please collect 24 hour urine. URINE 10/20/2024 9:59 PM PDT Keyon Jeffries M.D. URTreva GARCIA CHEMISTRY Performing Organization Address [facility] Phone Number [facility] [address] [place] [address] * (ABNORMAL) ELECTROLYTE PANEL (NA, K, CL, CO2, ANION GAP) (10/20/2024 5:10 PM PDT) SODIUM 124(L) 135 - 145 mEq/L [facility] POTASSIUM 3.9 3.5 - 5.0 mEq/L [facility] CHLORIDE 92(L) 101 - 111 mEq/L [facility] CO2 19(L) 21 - 31 mEq/L [facility] ANION GAP (NA - (CL + CO2)) 13(H) 3 - 11 mEq/L [facility] BLOOD / Unknown 10/20/2024 5 :10 PM PDT Keyon Peralta) Azael Quiroz SER UM CHEMISTRY Performing Organization Address [facility] de Phone Number [facility] [address] [place] [address] * (ABNORMAL) ELECTROLYTE PANEL (NA, K, CL, CO2, ANION GAP) (10/20/2024 12:07 PM PDT) SODIUM 124(L) 135 - 145 mEq/L [facility] POTASSIUM 3.8 3.5 - 5.0 mEq/L [facility] CHLORIDE 94(L) 101 - 111 mEq/L [facility] CO2 18(L) 21 - 31 mEq/L [facility] ANION GAP (NA - (CL + CO2)) 12(H) 3 - 11 mEq/L [facility] BLOOD / Unknown 10/20/2024 1 2:07 PM PDT Keyon Peralta) Azael Quiroz SER CHEMISTRY Performing Organization Address [facility] Co de Phone Number [facility] [address] [place] [address] * (ABNORMAL) OSMOLALITY, SERUM (10/20/2024 12:07 PM PDT) Pathologist [facility] MEASURED OSMOLALITY 263(L) 280 - 305 mOsm/kg [facility] BLOOD / Unknown 10/20/2024 1 2:07 PM PDT Keyon Peralta) Azael Quiroz SER CHEMISTRY Performing Organization Address [facility] Co de Phone Number [facility] [address] [place] [address] * (ABNORMAL) MAGNESIUM (10/20/2024 4:59 AM PDT) Pathologist [facility] MAGNESIUM 1.6(L) 1.7 - 2.8 mg/dL [facility] Comment: Magnesium results between 4.9 mg/dL and 9.7 mg/dL are not considered critical for patients receiving MgSO4 therapy. BLOOD / Unknown 10/20/2024 4 :59 AM PDT Eder Bhatt) Javad Witt SERUM CHEMISTRY Performing Organization Address [facility] Co de Phone Number [facility] [address] [place] [address] * (ABNORMAL) INR (10/20/2024 4:59 AM PDT) PT INR 3.1(H) 0.8 - 1.2 [facility] BLOOD / Unknown 10/20/2024 4 :59 AM PDT Catalino Peralta) Rl Quiroz COAGULATION Performing Organization Address [facility] de Phone Number [facility] [phone] [place] [address] * (ABNORMAL) GLUCOSE, FASTING (10/20/2024 4:59 AM PDT) GLUCOSE, FASTING 110(H) 70 - 99 mg/dL [facility] Comment: A repeatable fasting blood glucose result [...] Quiroz SERUM CHEMISTR Y Performing Organization Address [facility] de Phone Number [facility] [address] [place] [address] * CREATININE (10/20/2024 4:59 AM PDT) CREATININE 0.54 <=1.10 mg/dL [facility] EGFR, CREATININE-BASED FORMULA (CKD-EPI 2020) 93 >=60 mL/min/BS A [facility] Comment: GFR estimate is by the [...] Quiroz SERUM CHEMISTR Y Performing Organization Address [facility] de Phone Number [facility] [address] [place] [address] * BUN (10/20/2024 4:59 AM PDT) BUN 6 <=18 mg/dL [facility] BLOOD / Unknown 10/20/2024 4 :59 AM PDT Catalino Pearlta) Rl Quiroz SERUM CHEMISTR Y Performing Organization Address [facility] de Phone Number [facility] [address] [place] [address] * (ABNORMAL) ELECTROLYTE PANEL (NA, K, CL, CO2, ANION GAP) (10/20/2024 4:59 AM PDT) SODIUM 126(L) 135 - 145 mEq/L [facility] POTASSIUM 3.6 3.5 - 5.0 mEq/L [facility] CHLORIDE 97(L) 101 - 111 mEq/L [facility] CO2 21 21 - 31 mEq/L [facility] ANION GAP (NA - (CL + CO2)) 8 3 - 11 mEq/L [facility] BLOOD / Unknown 10/20/2024 4 :59 AM PDT Catalino Peralta) Rl Quiroz SERUM CHEMISTR Y Performing Organization Address [facility]/ZIP Co de Phone Number [facility] [address] [place] [address] * (ABNORMAL) WBC AUTO DIFF (10/20/2024 4:56 AM PDT) NEUTROPHILS %, AUTOMATED COUNT 82.5 [facility] LYMPHOCYTES %, AUTOMATED COUNT 7.5 [facility] MONOS %, AUTO 6.5 [facility] EOSINOPHILS %, AUTOMATED COUNT 2.1 [facility] BASOPHILS %, AUTOMATED COUNT 0.7 [facility] IMMATURE GRANULOCYTES %, AUTOMATED COUNT 1 [facility] RBC NUCLEATED AUTO COUNT, BLD 0 <=0 % [facility] NEUTROPHILS, ABSOLUTE, AUTOMATED COUNT 7.74(H) 1.80 - 7.70 x1000/mcL [facility] LYMPHOCYTES, AUTOMATED COUNT 0.70(L) 1.00 - 3.60 x1000/mcL [facility] MONOCYTES, AUTOMATED COUNT 0.61 0.10 - 1.00 x1000/mcL [facility] EOSINOPHILS, AUTOMATED COUNT 0.20 0.00 - 0.70 x1000/mcL [facility] BASOPHILS, AUTOMATED COUNT 0.07 0.00 - 0.20 x1000/mcL [facility] IMMATURE GRANULOCYTES, AUTOMATED COUNT 0.07 0.01 - 0.09 x1000/mcL [facility] BLOOD / Unknown 10/20/2024 4 :56 AM PDT Narrative [facility] - 10/20/2024 5:35 AM PDT Catalino Peralta) Rl Quiroz HEMATOLOGY [facility] [address] [place] [address] * (ABNORMAL) CBC W AUTOMATED DIFFERENTIAL (10/20/2024 4:56 AM PDT) WBC'S AUTO 9.4 4.0 - 11.0 x1000/mcL [facility] RBC, AUTO 3.59(L) 3.70 - 5.20 Mill/mcL [facility] HGB 10.0(L) 11.5 - 16.0 g/dL [facility] HCT, AUTO 30.0(L) 35.0 - 47.0 % [facility] MCV 83.6 81.0 - 99.0 fL [facility] MCH 27.9 25.0 - 35.0 pg/cell [facility] MCHC 33.3 30.0 - 35.0 g/dL [facility] RDW, BLOOD 14.3 11.5 - 16.0 % [facility] PLATELETS, AUTOMATED COUNT 435(H) 130 - 400 x1000/mcL [facility] BLOOD / Unknown 10/20/2024 4 :56 AM PDT Catalino Peralta) Rl Quiroz HEMATOLOGY [facility] [address] [employer] [facility] [place] [address] * XR CHEST 1 VIEW (10/19/2024 4:34 [...] ANION GAP) (10/19/2024 1:56 PM PDT) Pathologist [facility] SODIUM 129(L) 135 - 145 mEq/L [facility] POTASSIUM 4.3 3.5 - 5.0 mEq/L [facility] CHLORIDE 100(L) 101 - 111 mEq/L [facility] CO2 21 21 - 31 mEq/L [facility] ANION GAP (NA - (CL + CO2)) 8 3 - 11 mEq/L [facility] BLOOD / Unknown 10/19/2024 1 :56 PM PDT Eder Monreal (D.OLamar) Javad Witt SERUM CHEMISTRY [facility] [address] [facility] [place] [address] * (ABNORMAL) WBC AUTO DIFF (10/19/2024 4:53 AM PDT) Pathologist [facility] NEUTROPHILS %, AUTOMATED COUNT 84.0 [facility] LYMPHOCYTES %, AUTOMATED COUNT 6.7 [facility] MONOS %, AUTO 5.5 [facility] EOSINOPHILS %, AUTOMATED COUNT 2.4 [facility] BASOPHILS %, AUTOMATED COUNT 0.7 [facility] IMMATURE GRANULOCYTES %, AUTOMATED COUNT 1 [facility] RBC NUCLEATED AUTO COUNT, BLD 0 <=0 % [facility] NEUTROPHILS, ABSOLUTE, AUTOMATED COUNT 9.47(H) 1.80 - 7.70 x1000/mcL [facility] LYMPHOCYTES, AUTOMATED COUNT 0.75(L) 1.00 - 3.60 x1000/mcL [facility] MONOCYTES, AUTOMATED COUNT 0.62 0.10 - 1.00 x1000/mcL [facility] EOSINOPHILS, AUTOMATED COUNT 0.27 0.00 - 0.70 x1000/mcL [facility] BASOPHILS, AUTOMATED COUNT 0.08 0.00 - 0.20 x1000/mcL [facility] IMMATURE GRANULOCYTES, AUTOMATED COUNT 0.08 0.01 - 0.09 x1000/mcL [facility] BLOOD / Unknown 10/19/2024 4 :53 AM PDT Narrative [facility] - 10/19/2024 5:29 AM PDT Catalino Peralta) Rl Quiroz HEMATOLOGY Performing Organization Address [facility] Co de Phone Number [facility] [address] [place] [address] * MAGNESIUM (10/19/2024 4:53 AM PDT) MAGNESIUM 1.8 1.7 - 2.8 mg/dL [facility] Comment: Magnesium results between 4.9 mg/dL and 9.7 mg/dL are not considered critical for patients receiving MgSO4 therapy. BLOOD / Unknown 10/19/2024 4 :53 AM PDT Eder Bhatt) Javad Witt SERUM CHEMISTRY Performing Organization Address [facility] de Phone Number [facility] [address] [place] [address] * (ABNORMAL) INR (10/19/2024 4:53 AM PDT) PT INR 2.9(H) 0.8 - 1.2 [facility] BLOOD / Unknown 10/19/2024 4 :53 AM PDT Catalino Shine M.D. COAGULATION Performing Organization Address [facility] Co de Phone Number [facility] [address] [place] [address] * (ABNORMAL) GLUCOSE, FASTING (10/19/2024 4:53 AM PDT) GLUCOSE, FASTING 118(H) 70 - 99 mg/dL [facility] Comment: A repeatable fasting blood glucose [...] Catalino Peralta) Rl Quiroz SERUM CHEMISTR Y [facility] [address] [place] [address] * CREATININE (10/19/2024 4:53 AM PDT) CREATININE 0.69 <=1.10 mg/dL [facility] EGFR, CREATININE-BASED FORMULA (CKD-EPI 2020) 88 >=60 mL/min/BS A [facility] Comment: GFR estimate is by the [...] Quiroz SERUM CHEMISTR Y Performing Organization Address City/[facility] Co de Phone Number [facility] [id number] [place] [address] * BUN (10/19/2024 4:53 AM PDT) BUN 6 <=18 mg/dL [facility] BLOOD / Unknown 10/19/2024 4 :53 AM PDT Catalino Peralta) Rl Quiroz SERUM CHEMISTR Y Performing Organization Address [facility] Co de Phone Number [address] [address] * (ABNORMAL) ELECTROLYTE PANEL (NA, K, CL, CO2, ANION GAP) (10/19/2024 4:53 AM PDT) SODIUM 127(L) 135 - 145 mEq/L [facility] POTASSIUM 3.7 3.5 - 5.0 mEq/L [facility] CHLORIDE 100(L) 101 - 111 mEq/L [facility] CO2 18(L) 21 - 31 mEq/L [facility] ANION GAP (NA - (CL + CO2)) 9 3 - 11 mEq/L [facility] BLOOD / Unknown 10/19/2024 4 :53 AM PDT Catalino Peralta) Rl Quiroz SERUM CHEMISTR Y Performing Organization Address [facility] Co de Phone Number [facility] [address] [place] [address] * (ABNORMAL) CBC W AUTOMATED DIFFERENTIAL (10/19/2024 4:53 AM PDT) WBC'S AUTO 11.3(H) 4.0 - 11.0 x1000/mcL [facility] RBC, AUTO 3.51(L) 3.70 - 5.20 Mill/mcL [facility] HGB 10.2(L) 11.5 - 16.0 g/dL [facility] HCT, AUTO 29.6(L) 35.0 - 47.0 % [facility] MCV 84.3 81.0 - 99.0 fL [facility] MCH 29.1 25.0 - 35.0 pg/cell [facility] MCHC 34.5 30.0 - 35.0 g/dL [facility] RDW, BLOOD 14.6 11.5 - 16.0 % [facility] PLATELETS, AUTOMATED COUNT 370 130 - 400 x1000/mcL [facility] BLOOD / Unknown 10/19/2024 4 :53 AM PDT Catalino Peralta) Rl Quiroz HEMATOLOGY Performing Organization Address City/State/[facility] Co de Phone Number [facility] [address] [facility] [place] [address] * (ABNORMAL) WBC AUTO DIFF (10/18/2024 4:56 AM PDT) NEUTROPHILS %, AUTOMATED COUNT 85.9 [facility] LYMPHOCYTES %, AUTOMATED COUNT 5.8 [facility] MONOS %, AUTO 5.8 [facility] EOSINOPHILS %, AUTOMATED COUNT 1.5 [facility] BASOPHILS %, AUTOMATED COUNT 0.5 [facility] IMMATURE GRANULOCYTES %, AUTOMATED COUNT 0 [facility] RBC NUCLEATED AUTO COUNT, BLD 0 <=0 % [facility] NEUTROPHILS, ABSOLUTE, AUTOMATED COUNT 9.75(H) 1.80 - 7.70 x1000/mcL [facility] LYMPHOCYTES, AUTOMATED COUNT 0.66(L) 1.00 - 3.60 x1000/mcL [facility] MONOCYTES, AUTOMATED COUNT 0.66 0.10 - 1.00 x1000/mcL [facility] EOSINOPHILS, AUTOMATED COUNT 0.17 0.00 - 0.70 x1000/mcL [facility] BASOPHILS, AUTOMATED COUNT 0.06 0.00 - 0.20 x1000/mcL [facility] IMMATURE GRANULOCYTES, AUTOMATED COUNT 0.06 0.01 - 0.09 x1000/mcL [facility] BLOOD / Unknown 10/18/2024 4 :56 AM PDT Narrative [facility] - 10/18/2024 5:55 AM PDT Catalino Peralta) Rl Quiroz HEMATOLOGY Performing Organization Address [facility] de Phone Number [facility] [address] [place] [address] * MAGNESIUM (10/18/2024 4:56 AM PDT) MAGNESIUM 2.1 1.7 - 2.8 mg/dL [facility] Comment: Magnesium results between 4.9 mg/dL and 9.7 mg/dL are not considered critical for patients receiving MgSO4 therapy. BLOOD / Unknown 10/18/2024 4 :56 AM PDT Eder SantamariaD.OLamar) Javad Witt SERUM CHEMISTRY Performing Organization Address [facility] de Phone Number [facility] [address] [place] [address] * (ABNORMAL) INR (10/18/2024 4:56 AM PDT) PT INR 2.4(H) 0.8 - 1.2 [facility] BLOOD / Unknown 10/18/2024 4 :56 AM PDT Catalino Shine M.D. COAGULATION Performing Organization Address [facility] de Phone Number [facility] [address] [place] [address] * (ABNORMAL) GLUCOSE, FASTING (10/18/2024 4:56 AM PDT) GLUCOSE, FASTING 134(H) 70 - 99 mg/dL [facility] Comment: A repeatable fasting blood glucose [...] Quiroz SERUM CHEMISTR Y Performing Organization Address City/State/[facility] Co de Phone Number [facility] [address] [place] [address] * CREATININE (10/18/2024 4:56 AM PDT) CREATININE 0.86 <=1.10 mg/dL [facility] EGFR, CREATININE-BASED FORMULA (CKD-EPI 2020) 68 >=60 mL/min/BS A [facility] Comment: GFR estimate is by the [...] Quiroz SERUM CHEMISTR Y Performing Organization Address City/[facility] Co de Phone Number [facility] [address] [place] [address] * BUN (10/18/2024 4:56 AM PDT) BUN 13 <=18 mg/dL [facility] BLOOD / Unknown 10/18/2024 4 :56 AM PDT Catalino Peralta) Rl Quiroz SERUM CHEMISTR Y Performing Organization Address [facility] de Phone Number [facility] [address] [place] [address] * (ABNORMAL) ELECTROLYTE PANEL (NA, K, CL, CO2, ANION GAP) (10/18/2024 4:56 AM PDT) [facility] SODIUM 130(L) 135 - 145 mEq/L [facility] POTASSIUM 3.8 3.5 - 5.0 mEq/L [facility] CHLORIDE 104 101 - 111 mEq/L [facility] CO2 18(L) 21 - 31 mEq/L [facility] ANION GAP (NA - (CL + CO2)) 8 3 - 11 mEq/L [facility] BLOOD / Unknown 10/18/2024 4 :56 AM PDT Catalino Peralta) Rl Quiroz SERUM CHEMISTR Y Performing Organization Address [facility] de Phone Number [facility] [address] [place] [address] * (ABNORMAL) CBC W AUTOMATED DIFFERENTIAL (10/18/2024 4:56 AM PDT) Pathologist [facility] WBC'S AUTO 11.4(H) 4.0 - 11.0 x1000/mcL [facility] RBC, AUTO 3.60(L) 3.70 - 5.20 Mill/mcL [facility] HGB 10.0(L) 11.5 - 16.0 g/dL [facility] HCT, AUTO 30.8(L) 35.0 - 47.0 % [facility] MCV 85.6 81.0 - 99.0 fL [facility] MCH 27.8 25.0 - 35.0 pg/cell [facility] MCHC 32.5 30.0 - 35.0 g/dL [facility] RDW, BLOOD 14.6 11.5 - 16.0 % [facility] PLATELETS, AUTOMATED COUNT 344 130 - 400 x1000/mcL [facility] BLOOD / Unknown 10/18/2024 4 :56 AM PDT Catalino Peralta) Rl Quiroz HEMATOLOGY Performing Organization Address [facility] Co de Phone Number [facility] [address] [place] [address] * (ABNORMAL) POTASSIUM (10/17/2024 1:53 PM PDT) POTASSIUM 3.4(L) 3.5 - 5.0 mEq/L [facility] BLOOD / Unknown 10/17/2024 1 :53 PM PDT Eder Sanchez.O.) Leeroycera D.O. SERUM CHEMISTRY Performing Organization Address [facility] Co de Phone Number [facility] [address] [place] [address] * MAGNESIUM (10/17/2024 1:53 PM PDT) MAGNESIUM 2.0 1.7 - 2.8 mg/dL [facility] Comment: Magnesium results between 4.9 mg/dL and 9.7 mg/dL are not considered critical for patients receiving MgSO4 therapy. BLOOD / Unknown 10/17/2024 1 :53 PM PDT Eder Monreal (D.O.) Moncera D.O. SERUM CHEMISTRY Performing Organization Address [facility] Co de Phone Number [facility] [address] [place] [address] * MAGNESIUM (10/17/2024 12:01 PM PDT) MAGNESIUM 2.3 1.7 - 2.8 mg/dL [facility] Comment: Magnesium results between 4.9 mg/dL and 9.7 mg/dL are not considered critical for patients receiving MgSO4 therapy. BLOOD / Unknown 10/17/2024 1 2:01 PM PDT Debbie Peralta) Shen Quiroz SERUM CERTIFIED MEDICAL CODING SPECIALIST RY Performing Organization Address City/[facility]/ZIP Co de Phone Number [facility] [address] [place] [address] * (ABNORMAL) MAGNESIUM (10/17/2024 5:13 AM PDT) MAGNESIUM 1.6(L) 1.7 - 2.8 mg/dL [facility] Comment: Magnesium results between 4.9 mg/dL and 9.7 mg/dL are not considered critical for patients receiving MgSO4 therapy. BLOOD / Unknown 10/17/2024 5 :13 AM PDT Eder Sanchez.Navneet) Javad Witt SERUM CHEMISTRY Performing Organization Address [facility] de Phone Number [facility] [address] [place] [address] * (ABNORMAL) WBC AUTO DIFF (10/17/2024 5:13 AM PDT) NEUTROPHILS %, AUTOMATED COUNT 85.0 [facility] LYMPHOCYTES %, AUTOMATED COUNT 6.4 [facility] MONOS %, AUTO 7.0 [facility] EOSINOPHILS %, AUTOMATED COUNT 0.7 [facility] BASOPHILS %, AUTOMATED COUNT 0.4 [facility] IMMATURE GRANULOCYTES %, AUTOMATED COUNT 0 [facility] RBC NUCLEATED AUTO COUNT, BLD 0 <=0 % [facility] NEUTROPHILS, ABSOLUTE, AUTOMATED COUNT 8.00(H) 1.80 - 7.70 x1000/mcL [facility] LYMPHOCYTES, AUTOMATED COUNT 0.60(L) 1.00 - 3.60 x1000/mcL [facility] MONOCYTES, AUTOMATED COUNT 0.66 0.10 - 1.00 x1000/mcL [facility] EOSINOPHILS, AUTOMATED COUNT 0.07 0.00 - 0.70 x1000/mcL [facility] BASOPHILS, AUTOMATED COUNT 0.04 0.00 - 0.20 x1000/mcL [facility] IMMATURE GRANULOCYTES, AUTOMATED COUNT 0.05 0.01 - 0.09 x1000/mcL [facility] BLOOD / Unknown 10/17/2024 5 :13 AM PDT Narrative [facility] - 10/17/2024 5:34 AM PDT Catalino Peralta) Rl Quiroz HEMATOLOGY Performing Organization Address [facility] de Phone Number [facility] [address] [place] [address] * (ABNORMAL) INR (10/17/2024 5:13 AM PDT) PT INR 2.0(H) 0.8 - 1.2 [facility] BLOOD / Unknown 10/17/2024 5 :13 AM PDT Catalino Shine M.D. COAGULATION Performing Organization Address [facility] Phone Number [facility] [address] [place] [address] * (ABNORMAL) GLUCOSE, FASTING (10/17/2024 5:13 AM PDT) GLUCOSE, FASTING 114(H) 70 - 99 mg/dL [facility] Comment: A repeatable fasting blood glucose result [...] Quiroz SERUM CHEMISTR Y Performing Organization Address [facility] de Phone Number [facility] [address] [place] [address] * CREATININE (10/17/2024 5:13 AM PDT) CREATININE 0.74 <=1.10 mg/dL [facility] EGFR, CREATININE-BASED FORMULA (CKD-EPI 2020) 82 >=60 mL/min/BS A [facility] Comment: GFR estimate is by the [...] Quiroz SERUM CHEMISTR Y Performing Organization Address [facility] de Phone Number [address] [address] * BUN (10/17/2024 5:13 AM PDT) BUN 7 <=18 mg/dL [facility] BLOOD / Unknown 10/17/2024 5 :13 AM PDT Catalino Peralta) Rl Quiroz SERUM CHEMISTR Y Performing Organization Address [facility] de Phone Number [address] [address] * (ABNORMAL) ELECTROLYTE PANEL (NA, K, CL, CO2, ANION GAP) (10/17/2024 5:13 AM PDT) SODIUM 133(L) 135 - 145 mEq/L [facility] POTASSIUM 3.5 3.5 - 5.0 mEq/L [facility] CHLORIDE 102 101 - 111 mEq/L [facility] CO2 22 21 - 31 mEq/L [facility] ANION GAP (NA - (CL + CO2)) 9 3 - 11 mEq/L [facility] BLOOD / Unknown 10/17/2024 5 :13 AM PDT Catalino Peralta) Rl Quiroz SERUM CHEMISTR Y Performing Organization Address [facility] Co de Phone Number [facility] [address] [place] [address] * (ABNORMAL) CBC W AUTOMATED DIFFERENTIAL (10/17/2024 5:13 AM PDT) WBC'S AUTO 9.4 4.0 - 11.0 x1000/mcL [facility] RBC, AUTO 3.74 3.70 - 5.20 Mill/mcL [facility] HGB 10.5(L) 11.5 - 16.0 g/dL [facility] HCT, AUTO 31.6(L) 35.0 - 47.0 % [facility] MCV 84.5 81.0 - 99.0 fL [facility] MCH 28.1 25.0 - 35.0 pg/cell [facility] MCHC 33.2 30.0 - 35.0 g/dL [facility] RDW, BLOOD 13.9 11.5 - 16.0 % [facility] PLATELETS, AUTOMATED COUNT 296 130 - 400 x1000/mcL [facility] BLOOD / Unknown 10/17/2024 5 :13 AM PDT Catalino Peralta) Rl Quiroz HEMATOLOGY Performing Organization Address City/[facility] Co de Phone Number [facility] [address] [place] [address] * STREPTOCOCCUS PNEUMONIAE ANTIGEN, URINE, IMMUNOCHROMATOGRAPHIC ASSAY (10/16/2024 7:37 PM PDT) Pathologist [facility] STREPTOCOCCUS PNEUMONIAE AG, URINE Negative Negative [facility] Comment: Adults with pneumococcal pneumonia sensitivity 50-80%; specificity 90%. Children with pneumococcal pneumonia sensitivity 80-90%; specificity 60-80%. URINE 10/16/2024 7:37 PM PDT Eder Monreal (D.O.) Leeroycera D.O. IMMUNOLOGY Performing Organization Address City/[facility]/ZIP Co de Phone Number [facility] [address] [place] [address] * LEGIONELLA PNEUMOPHILA ANTIGEN, URINE, IMMUNOASSAY (10/16/2024 7:37 PM PDT) LEGIONELLA PNEUMOPHILA AG, URINE, EIA Presumptive Negative Presumptive Negative [facility] Comment: Presumptive positive for the presence of L. pneumophila serogroup 1 antigen in urine, suggesting current or past infection. Please submit a respiratory specimen for LEGIONELLA SPECIES CULTURE [[facility] order code: [id number]]. Urinary Legionella antigen may persist long after active infection has resolved. More conclusive evidence of active infection is obtained from LEGIONELLA SPECIES CULTURE [[facility] order code: [id number]], Results of this assay should be interpreted [...] Carlosa D.O. OUTSIDE TESTING Performing Organization Address City/[facility]/ZIP Co de Phone Number [facility] [address] [place] [address] * POTASSIUM (10/16/2024 1:19 PM PDT) POTASSIUM 3.7 3.5 - 5.0 mEq/L [facility] BLOOD / Unknown 10/16/2024 1 :19 PM PDT Eder Sanchez.Gina.) Javad Barbosa.OLamar SERUM CHEMISTRY Performing Organization Address [facility] Co de Phone Number [facility] [address] [place] [address] * SARS-COV-2 (COVID-19), INFLUENZA A + B, MULTIPLEX STACY (10/16/2024 11:45 AM PDT) SARS-COV-2 (COVID-19), QUALITATIVE, STACY Not Detected Not Detected [facility] INFLUENZA VIRUS A, PCR Not Detected Not Detected [facility] INFLUENZA VIRUS B RNA, PCR Not Detected Not Detected [facility] Comment: Positive results do not rule [...] Sanchez.Gina.) Javad Barbosa.[place] VIROLOGY Performing Organization Address [facility] Co de Phone Number [facility] [address] [place] [address] * (ABNORMAL) B-TYPE NATRIURETIC PEPTIDE (BNP) (10/16/2024 5:48 AM PDT) B TYPE NATRIURETIC PEPTIDE 464(H) <=99 pg/mL [facility] Comment: Less than 100: Not likely [...] Javad Witt SERUM CHEMISTRY Performing Organization Address [facility] Co de Phone Number [facility] [address] [place] [address] * (ABNORMAL) WBC AUTO DIFF (10/16/2024 5:48 AM PDT) NEUTROPHILS %, AUTOMATED COUNT 84.4 [facility] LYMPHOCYTES %, AUTOMATED COUNT 7.4 [facility] MONOS %, AUTO 6.3 [facility] EOSINOPHILS %, AUTOMATED COUNT 0.9 [facility] BASOPHILS %, AUTOMATED COUNT 0.6 [facility] IMMATURE GRANULOCYTES %, AUTOMATED COUNT 0 [facility] RBC NUCLEATED AUTO COUNT, BLD 0 <=0 % [facility] NEUTROPHILS, ABSOLUTE, AUTOMATED COUNT 8.11(H) 1.80 - 7.70 x1000/mcL [facility] LYMPHOCYTES, AUTOMATED COUNT 0.71(L) 1.00 - 3.60 x1000/mcL [facility] MONOCYTES, AUTOMATED COUNT 0.61 0.10 - 1.00 x1000/mcL [facility] EOSINOPHILS, AUTOMATED COUNT 0.09 0.00 - 0.70 x1000/mcL [facility] BASOPHILS, AUTOMATED COUNT 0.06 0.00 - 0.20 x1000/mcL [facility] IMMATURE GRANULOCYTES, AUTOMATED COUNT 0.04 0.01 - 0.09 x1000/mcL [facility] BLOOD / Unknown 10/16/2024 5 :48 AM PDT Narrative [facility] - 10/16/2024 6:13 AM PDT Other providers have received this result due to duplicate orders for this test. You may have ordered this exact test or one of its components. Thus, coordination of care is necessary. Click on the Order Details hyperlink for indication of all providers who have received notification of this result. Catalino Peralta) Rl Quiroz HEMATOLOGY Performing Organization Address [facility] Co de Phone Number [facility] [address] [place] [address] * (ABNORMAL) INR (10/16/2024 5:48 AM PDT) PT INR 1.8(H) 0.8 - 1.2 [facility] BLOOD / Unknown 10/16/2024 5 :48 AM PDT Catalino Peralta) Rl Quiroz COAGULATION Performing Organization Address [facility] Phone Number [facility] [id number] [place] [address] * (ABNORMAL) GLUCOSE, FASTING (10/16/2024 5:48 AM PDT) GLUCOSE, FASTING 115(H) 70 - 99 mg/dL [facility] Comment: A repeatable fasting blood glucose result [...] Quiroz SERUM CHEMISTR Y Performing Organization Address [facility] Phone Number [facility] [address] [place] [address] * CREATININE (10/16/2024 5:48 AM PDT) CREATININE 0.74 <=1.10 mg/dL [facility] EGFR, CREATININE-BASED FORMULA (CKD-EPI 2020) 82 >=60 mL/min/BS A [facility] Comment: GFR estimate is by the [...] Quiroz SERUM CHEMISTR Y Performing Organization Address [facility] de Phone Number [facility] [address] [place] [address] * BUN (10/16/2024 5:48 AM PDT) BUN 7 <=18 mg/dL [facility] BLOOD / Unknown 10/16/2024 5 :48 AM PDT Catalino Peralta) Rl Quiroz SERUM CHEMISTR Y Performing Organization Address [facility] Co de Phone Number [facility] [address] [address] * (ABNORMAL) ELECTROLYTE PANEL (NA, K, CL, CO2, ANION GAP) (10/16/2024 5:48 AM PDT) SODIUM 134(L) 135 - 145 mEq/L [facility] POTASSIUM 3.3(L) 3.5 - 5.0 mEq/L [facility] CHLORIDE 102 101 - 111 mEq/L [facility] CO2 23 21 - 31 mEq/L [facility] ANION GAP (NA - (CL + CO2)) 9 3 - 11 mEq/L [facility] BLOOD / Unknown 10/16/2024 5 :48 AM PDT Catalino Peralta) Rl Quiroz SERUM CHEMISTR Y Performing Organization Address [facility] Co de Phone Number [facility] [address] [place] [address] * (ABNORMAL) CBC W AUTOMATED DIFFERENTIAL (10/16/2024 5:48 AM PDT) WBC'S AUTO 9.6 4.0 - 11.0 x1000/mcL [facility] RBC, AUTO 3.88 3.70 - 5.20 Mill/mcL [facility] HGB 10.8(L) 11.5 - 16.0 g/dL [facility] HCT, AUTO 32.6(L) 35.0 - 47.0 % [facility] MCV 84.0 81.0 - 99.0 fL [facility] MCH 27.8 25.0 - 35.0 pg/cell [facility] MCHC 33.1 30.0 - 35.0 g/dL [facility] RDW, BLOOD 13.8 11.5 - 16.0 % [facility] PLATELETS, AUTOMATED COUNT 293 130 - 400 x1000/mcL [facility] BLOOD / Unknown 10/16/2024 5 :48 AM PDT Narrative [facility] - 10/16/2024 6:13 AM PDT Other providers have received this result due to duplicate orders for this test. You may have ordered this exact test or one of its components. Thus, coordination of care is necessary. Click on the Order Details hyperlink for indication of all providers who have received notification of this result. Catalino Peralta) Rl Quiroz HEMATOLOGY Performing Organization Address [facility] Co de Phone Number [facility] [address] [place] [address] * POTASSIUM (10/15/2024 2:48 PM PDT) POTASSIUM 3.9 3.5 - 5.0 mEq/L [facility] BLOOD / Unknown 10/15/2024 2 :48 PM PDT Eder Monreal (D.O.) Javad D.O. SERUM CHEMISTRY Performing Organization Address [facility] Phone Number [facility] [address] [place] [address] * CLOSTRIDIUM DIFFICILE GDH AG, TOXINS A, B W REFLEX TO PCR (10/15/2024 10:11 AM PDT) CLOSTRIDIOIDES (CLOSTRIDIUM) DIFFICILE AG AND TOXINS A+B, STOOL Negative Negative [facility] Comment: A finding of I ndeterminate represents discrepant immunoassay results obtained for GDH (antigen specific to C. difficile) and toxin production. Molecular testing (nucleic acid amplification) will follow to confirm results. STOOL 10/15/2024 10:1 1 AM PDT Eder Monreal (D.O.) Javad Barbosa.OLamar MICROBIOLOGY Performing Organization Address [facility] de Phone Number [facility] [address] [place] [address] * (ABNORMAL) UNFRACTIONATED HEPARIN, ANTI FACTOR XA (10/15/2024 8:12 AM PDT) HEPARIN, UNFRACTIONATED <0.10(L) 0.30 - 0.70 IU/mL [facility] BLOOD / Unknown 10/15/2024 8 :12 AM PDT Anish (R.P.H.) Chris PHARMMagdalene COAGULATION Performing Organization Address [facility] de Phone Number [facility] [address] [place] [address] * (ABNORMAL) HEPARIN THERAPY, APTT (10/15/2024 8:12 AM PDT) APTT 52(L) 68 - 105 Sec [facility] BLOOD / Unknown 10/15/2024 8 :12 AM PDT Anish (R.P.H.) Chris HARRIS COAGULATION [facility] [address] [place] [address] * (ABNORMAL) WBC AUTO DIFF (10/15/2024 5:57 AM PDT) NEUTROPHILS %, AUTOMATED COUNT 85.1 [facility] LYMPHOCYTES %, AUTOMATED COUNT 7.7 [facility] MONOS %, AUTO 6.1 [facility] EOSINOPHILS %, AUTOMATED COUNT 0.4 [facility] BASOPHILS %, AUTOMATED COUNT 0.5 [facility] IMMATURE GRANULOCYTES %, AUTOMATED COUNT 0 [facility] RBC NUCLEATED AUTO COUNT, BLD 0 <=0 % [facility] NEUTROPHILS, ABSOLUTE, AUTOMATED COUNT 8.21(H) 1.80 - 7.70 x1000/mcL [facility] LYMPHOCYTES, AUTOMATED COUNT 0.74(L) 1.00 - 3.60 x1000/mcL [facility] MONOCYTES, AUTOMATED COUNT 0.59 0.10 - 1.00 x1000/mcL [facility] EOSINOPHILS, AUTOMATED COUNT 0.04 0.00 - 0.70 x1000/mcL [facility] BASOPHILS, AUTOMATED COUNT 0.05 0.00 - 0.20 x1000/mcL [facility] IMMATURE GRANULOCYTES, AUTOMATED COUNT 0.02 0.01 - 0.09 x1000/mcL [facility] BLOOD / Unknown 10/15/2024 5 :57 AM PDT Narrative [facility] - 10/15/2024 6:23 AM PDT Other providers have received this result due to duplicate orders for this test. You may have ordered this exact test or one of its components. Thus, coordination of care is necessary. Click on the Order Details hyperlink for indication of all providers who have received notification of this result. Catalino Peralta) Rl Quiroz HEMATOLOGY Performing Organization Address City/[facility]/ZIP Co de Phone Number [facility] [address] [place] [address] * (ABNORMAL) INR (10/15/2024 5:57 AM PDT) PT INR 2.1(H) 0.8 - 1.2 [facility] BLOOD / Unknown 10/15/2024 5 :57 AM PDT Catalino Peralta) Rl Quiroz COAGULATION Performing Organization Address [facility] Co de Phone Number [facility] [address] [place] [address] * (ABNORMAL) GLUCOSE, FASTING (10/15/2024 5:57 AM PDT) GLUCOSE, FASTING 125(H) 70 - 99 mg/dL [facility] Comment: A repeatable fasting blood glucose [...] M.D. SERUM CHEMISTR Y Performing Organization Address [facility] de Phone Number [facility] [address] [place] [address] * (ABNORMAL) ALBUMIN (10/15/2024 5:57 AM PDT) ALBUMIN 2.4(L) 3.3 - 4.8 g/dL [facility] BLOOD / Unknown 10/15/2024 5 :57 AM PDT Catalino Peralta) Rl Quiroz SERUM CHEMISTR Y Performing Organization Address [facility] Co de Phone Number [facility] [address] [place] [address] * MAGNESIUM (10/15/2024 5:57 AM PDT) MAGNESIUM 2.0 1.7 - 2.8 mg/dL [facility] Comment: Magnesium results between 4.9 mg/dL and 9.7 mg/dL are not considered critical for patients receiving MgSO4 therapy. BLOOD / Unknown 10/15/2024 5 :57 AM PDT Catalino Peralta) Rl Quiroz SERUM CHEMISTR Y Performing Organization Address [facility] de Phone Number [facility] [address] [address] * CREATININE (10/15/2024 5:57 AM PDT) CREATININE 0.77 <=1.10 mg/dL [facility] EGFR, CREATININE-BASED FORMULA (CKD-EPI 2020) 78 >=60 mL/min/BS A [facility] Comment: GFR estimate is by the [...] Quiroz SERUM CHEMISTR Y Performing Organization Address [facility] Co de Phone Number [facility] [address] [place] [address] * BUN (10/15/2024 5:57 AM PDT) BUN 14 <=18 mg/dL [facility] BLOOD / Unknown 10/15/2024 5 :57 AM PDT Catalino Peralta) Rl Quiroz SERUM CHEMISTR Y Performing Organization Address City/[facility] Co de Phone Number [facility] [address] [place] [address] * (ABNORMAL) ELECTROLYTE PANEL (NA, K, CL, CO2, ANION GAP) (10/15/2024 5:57 AM PDT) Pathologist [facility] SODIUM 133(L) 135 - 145 mEq/L [facility] POTASSIUM 3.0(L) 3.5 - 5.0 mEq/L [facility] CHLORIDE 102 101 - 111 mEq/L [facility] CO2 21 21 - 31 mEq/L [facility] ANION GAP (NA - (CL + CO2)) 10 3 - 11 mEq/L [facility] BLOOD / Unknown 10/15/2024 5 :57 AM PDT Catalino Peralta) Rl Quiroz SERUM CHEMISTR Y Performing Organization Address City/[facility] de Phone Number [facility] [address] [place] [address] * (ABNORMAL) CBC W AUTOMATED DIFFERENTIAL (10/15/2024 5:57 AM PDT) WBC'S AUTO 9.7 4.0 - 11.0 x1000/mcL [facility] RBC, AUTO 3.82 3.70 - 5.20 Mill/mcL [facility] HGB 10.9(L) 11.5 - 16.0 g/dL [facility] HCT, AUTO 32.1(L) 35.0 - 47.0 % [facility] MCV 84.0 81.0 - 99.0 fL [facility] MCH 28.5 25.0 - 35.0 pg/cell [facility] MCHC 34.0 30.0 - 35.0 g/dL [facility] RDW, BLOOD 13.8 11.5 - 16.0 % [facility] PLATELETS, AUTOMATED COUNT 270 130 - 400 x1000/mcL [facility] BLOOD / Unknown 10/15/2024 5 :57 AM PDT Narrative [facility] - 10/15/2024 6:23 AM PDT Other providers have received this result due to duplicate orders for this test. You may have ordered this exact test or one of its components. Thus, coordination of care is necessary. Click on the Order Details hyperlink for indication of all providers who have received notification of this result. Catalino Peralta) Rl Quiroz HEMATOLOGY Performing Organization Address [facility] Co de Phone Number [facility] [address] [place] [address] * (ABNORMAL) HEPARIN THERAPY, APTT (10/14/2024 10:54 PM PDT) APTT 46(L) 68 - 105 Sec [facility] BLOOD / Unknown 10/14/2024 1 0:54 PM PDT Shante (Pharm.D) To PHARM.D. COAGULATIO N Performing Organization Address [facility] Phone Number [facility] [address] [place] [address] * (ABNORMAL) UNFRACTIONATED HEPARIN, ANTI FACTOR XA (10/14/2024 10:54 PM PDT) HEPARIN, UNFRACTIONATED <0.10(L) 0.30 - 0.70 IU/mL [facility] BLOOD / Unknown 10/14/2024 1 0:54 PM PDT Shante (Pharm.D) To PHARM.D. COAGULATIO N Performing Organization Address [facility] Co de Phone Number [facility] [address] [place] [address] * BACTERIAL GI PANEL (SALMONELLA, SHIGELLA/EIEC, CAMPYLOBACTER, SHIGA TOXIN DNA), STOOL, MULTIPLEX PCR (10/14/2024 10:38 PM PDT) Pathologist [facility] SALMONELLA SPECIES DNA, STOOL, QL, PCR Not Detected Not Detected [facility], [facility] SHIGELLA SP+EIEC DNA, STOOL, QL, PCR Not Detected Not Detected [facility], [facility] CAMPYLOBACTER COLI/JEJUNI DNA, STOOL, QL, PCR Not Detected Not Detected [facility] , [facility] SHIGA TOXIN GENES, PCR Not Detected Not Detected [facility] Comment: A Not Detected result may occur [...] PM PDT Catalino Peralta) Rl Quiroz MICROBIOLOGY [facility] [address] [place] [address] * (ABNORMAL) INR (10/14/2024 4:14 PM PDT) Pathologist [facility] PT INR 2.0(H) 0.8 - 1.2 [facility] BLOOD / Unknown 10/14/2024 4 :14 PM PDT Orlin Bhatt) Clover Witt COAGULATION Performing Organization Address [facility] Co de Phone Number [facility] [address] [place] [address] * BLOOD CULTURE (10/14/2024 4:14 PM PDT) FINAL RESULT No growth at 5 days. [facility], [facility] PATHOLOGY [facility] BLOOD / Unknown 10/14/2024 4 :14 PM PDT Catalino Peralta) Rl Quiroz MICROBIOLOGY Performing Organization Address [facility] Co de Phone Number [facility], [facility] [address] [place] [address] * (ABNORMAL) TROPONIN I, HIGH SENSITIVITY (10/14/2024 3:55 PM PDT) TROPONIN I, HIGH SENSITIVITY 24(H) <=12 pg/mL [facility] Comment: Symptom hsTnI (pg/mL) Delta hsTnl Interpretation Duration M F (pg/mL) >=18y/o M <18y/o Any >100 >75 Myocardial Injury >3 hours <=20 <=12 No Myocardial Injury 21-100 13-75 Rpt TnI in 2 hrs.Calc Delta <=5 No MA 6-10 Indeterminate >10 Acute Myocardial Injury *Troponin values may be elevated in clinical conditions other than acute coronary syndrome. BLOOD / Unknown 10/14/2024 3 :55 PM PDT Catalino Peralta) Rl Quiroz IMMUNOLOGY Performing Organization Address City/[facility]/ZIP Co de Phone Number [facility] [address] [place] [address] * BLOOD CULTURE (10/14/2024 3:55 PM PDT) FINAL RESULT No growth at 5 days. [facility] REFERENCE [facility], CLINICAL PATHOLOGY [facility] BLOOD / Unknown 10/14/2024 3 :55 PM PDT Catalino Peralta) Rl Quiroz MICROBIOLOGY Performing Organization Address [facility] de Phone Number [facility], CLINICAL PATHOLOGY [facility] [address] [place] [address] * CT ABD AND PELVIS NO CONTRAST [...] PDT) PHOSPHORUS 2.9 2.7 - 4.5 mg/dL [facility] BLOOD / Unknown 10/14/2024 2 :04 PM PDT Fariha Peralta) Jaimee Quiroz SERUM CHEM ISTRY Performing Organization Address City/[facility] Co de Phone Number [facility] [address] [place] [address] * MAGNESIUM (10/14/2024 2:04 PM PDT) MAGNESIUM 2.5 1.7 - 2.8 mg/dL [facility] Comment: Magnesium results between 4.9 mg/dL and 9.7 mg/dL are not considered critical for patients receiving MgSO4 therapy. BLOOD / Unknown 10/14/2024 2 :04 PM PDT Fariha Peralta) Jaimee Quiroz SERUM CHEM ISTRY Performing Organization Address [facility] Co de Phone Number [facility] [address] [place] [address] * (ABNORMAL) CALCIUM (10/14/2024 2:04 PM PDT) CALCIUM 8.0(L) 8.5 - 10.7 mg/dL [facility] BLOOD / Unknown 10/14/2024 2 :04 PM PDT Fariha Peralta) Jaimee Quiroz SERUM CHEM ISTRY Performing Organization Address City/[facility] Co de Phone Number [facility] [address] [place] [address] * LACTIC ACID, BLOOD (10/14/2024 2:04 PM PDT) LACTATE, SER/PLAS 1.0 0.5 - 1.9 mmol/L [facility] BLOOD / Unknown 10/14/2024 2 :04 PM PDT Narrative [facility] - 10/14/2024 2:23 PM PDT Fariha Hermosillo M.D. SERUM CHEM ISTRY [facility] [address] [place] [address] * XR CHEST 1 VIEW (10/14/2024 11:51 [...] PDT) APTT 40(H) 25 - 37 Sec [facility] BLOOD / Unknown 10/14/2024 1 1:06 AM PDT Shante (Pharm.D) Derrek HARRIS COAGULATIO N Performing Organization Address [facility]/ZIP Co de Phone Number [facility] [address] [place] [address] * (ABNORMAL) INR (10/14/2024 11:06 AM PDT) PT INR 1.9(H) 0.8 - 1.2 [facility] BLOOD / Unknown 10/14/2024 1 1:06 AM PDT Catalino Peralta) Rl Quiroz COAGULATION Performing Organization Address City/[facility] Co de Phone Number [facility] [address] [place] [address] * (ABNORMAL) WBC AUTO DIFF (10/14/2024 11:06 AM PDT) NEUTROPHILS %, AUTOMATED COUNT 83.7 [facility] LYMPHOCYTES %, AUTOMATED COUNT 8.5 [facility] MONOS %, AUTO 6.3 [facility] EOSINOPHILS %, AUTOMATED COUNT 0.2 [facility] BASOPHILS %, AUTOMATED COUNT 0.6 [facility] IMMATURE GRANULOCYTES %, AUTOMATED COUNT 1 [facility] RBC NUCLEATED AUTO COUNT, BLD 0 <=0 % [facility] NEUTROPHILS, ABSOLUTE, AUTOMATED COUNT 11.88(H) 1.80 - 7.70 x1000/mcL [facility] LYMPHOCYTES, AUTOMATED COUNT 1.21 1.00 - 3.60 x1000/mcL [facility] MONOCYTES, AUTOMATED COUNT 0.89 0.10 - 1.00 x1000/mcL [facility] EOSINOPHILS, AUTOMATED COUNT 0.03 0.00 - 0.70 x1000/mcL [facility] BASOPHILS, AUTOMATED COUNT 0.08 0.00 - 0.20 x1000/mcL [facility] IMMATURE GRANULOCYTES, AUTOMATED COUNT 0.10(H) 0.01 - 0.09 x1000/mcL [facility] BLOOD / Unknown 10/14/2024 1 1:06 AM PDT Narrative [facility] - 10/14/2024 12:30 PM PDT Kelly Peralta) Yvan Quiroz HEMATOLOGY Performing Organization Address [facility] Co de Phone Number [facility] [address] [place] [address] * (ABNORMAL) B-TYPE NATRIURETIC PEPTIDE (BNP) (10/14/2024 11:06 AM PDT) B TYPE NATRIURETIC PEPTIDE 1,392(H) <=99 pg/mL [facility] Comment: Less than 100: Not likely heart [...] M.D. SERUM CHEM ISTRY Performing Organization Address [facility] Co de Phone Number [facility] [address] [place] [address] * (ABNORMAL) LACTIC ACID W REFLEX TO REPEAT (10/14/2024 11:06 AM PDT) LACTATE, SER/PLAS 2.3(H) 0.5 - 1.9 mmol/L [facility] BLOOD / Unknown 10/14/2024 1 1:06 AM PDT Fariha Hermosillo M.D. SERUM CHEM ISTRY Performing Organization Address [facility] Co de Phone Number [facility] [address] [place] [address] * (ABNORMAL) TROPONIN I, HIGH SENSITIVITY (10/14/2024 11:06 AM PDT) TROPONIN I, HIGH SENSITIVITY 21(H) <=12 pg/mL [facility] Comment: Symptom hsTnI (pg/mL) Delta hsTnl Interpretation Duration M F (pg/mL) >=18y/o M <18y/o Any >100 >75 Myocardial Injury >3 hours <=20 <=12 No Myocardial Injury 21-100 13-75 Rpt TnI in 2 hrs.Calc Delta <=5 No MA 6-10 Indeterminate >10 Acute Myocardial Injury *Troponin values may be elevated in clinical conditions other than acute coronary syndrome. BLOOD / Unknown 10/14/2024 1 1:06 AM PDT Kelly Peralta) Yvan Quiroz IMMUNOLOGY Performing Organization Address [facility] Co de Phone Number [facility] [id number] [place] [address] * ALKALINE PHOSPHATASE (10/14/2024 11:06 AM PDT) ALKALINE PHOSPHATASE 62 <=125 U/L [facility] BLOOD / Unknown 10/14/2024 1 1:06 AM PDT Kelly Peralta) Yvan Quiroz SERUM CHEMISTRY Performing Organization Address City/[facility]/ZIP Co de Phone Number [facility] [address] [place] [address] * (ABNORMAL) BILIRUBIN, DIRECT (10/14/2024 11:06 AM PDT) BILIRUBIN, DIRECT 0.4(H) <=0.2 mg/dL [facility] BLOOD / Unknown 10/14/2024 1 1:06 AM PDT Kelly Peralta) Yvan Quiroz SERUM CHEMISTRY Performing Organization Address City/[facility]/ZIP Co de Phone Number [facility] [id number] [place] [address] * (ABNORMAL) BILIRUBIN, TOTAL (10/14/2024 11:06 AM PDT) BILIRUBIN, TOTAL 1.3(H) <=1.0 mg/dL [facility] BLOOD / Unknown 10/14/2024 1 1:06 AM PDT Kelly Peralta) Yvan Quiroz SERUM CHEMISTRY Performing Organization Address City/[facility]/ZIP Co de Phone Number [facility] [address] [place] [address] * AST (10/14/2024 11:06 AM PDT) AST 20 <=30 U/L [facility] BLOOD / Unknown 10/14/2024 1 1:06 AM PDT Kelly Peralta) Yvan Quiroz SERUM CHEMISTRY Performing Organization Address City/[facility]/ZIP Co de Phone Number [facility] [address] [place] [address] * ALT (10/14/2024 11:06 AM PDT) ALT 15 <=54 U/L [facility] BLOOD / Unknown 10/14/2024 1 1:06 AM PDT Kelly Peralta) Yvan Quiroz SERUM CHEMISTRY Performing Organization Address [facility] Co de Phone Number [facility] [address] [place] [address] * LIPASE (10/14/2024 11:06 AM PDT) LIPASE 30 <=58 U/L [facility] BLOOD / Unknown 10/14/2024 1 1:06 AM PDT Kelly Peralta) Yvan Quiroz SERUM CHEMISTRY Performing Organization Address [facility] de Phone Number [facility] [address] [place] [address] * GLUCOSE (10/14/2024 11:06 AM PDT) GLUCOSE, RANDOM 131 70 - 140 mg/dL [facility] BLOOD / Unknown 10/14/2024 1 1:06 AM PDT Kelly Peralta) Yvan Quiroz SERUM CHEMISTRY Performing Organization Address [facility] de Phone Number [facility] [address] [place] [address] * (ABNORMAL) CREATININE (10/14/2024 11:06 AM PDT) CREATININE 1.25(H) <=1.10 mg/dL [facility] EGFR, CREATININE-BASED FORMULA (CKD-EPI 2020) 44(L) >=60 mL/min/BS A [facility] Comment: GFR estimate is by the [...] Yvan Quiroz SERUM CHEMISTRY Performing Organization Address [facility] Co de Phone Number [facility] [address] [place] [address] * BUN (10/14/2024 11:06 AM PDT) BUN 16 <=18 mg/dL [facility] BLOOD / Unknown 10/14/2024 1 1:06 AM PDT Kelly Peralta) Yvan Quiroz SERUM CHEMISTRY Performing Organization Address [facility] Co de Phone Number [facility] [address] [place] [address] * (ABNORMAL) ELECTROLYTE PANEL (NA, K, CL, CO2, ANION GAP) (10/14/2024 11:06 AM PDT) SODIUM 131(L) 135 - 145 mEq/L [facility] POTASSIUM 4.0 3.5 - 5.0 mEq/L [facility] CHLORIDE 97(L) 101 - 111 mEq/L [facility] CO2 20(L) 21 - 31 mEq/L [facility] ANION GAP (NA - (CL + CO2)) 14(H) 3 - 11 mEq/L [facility] BLOOD / Unknown 10/14/2024 1 1:06 AM PDT Kelly Peralta) Yvan Quiroz SERUM CHEMISTRY Performing Organization Address [facility] de Phone Number [facility] [address] [place] [address] * (ABNORMAL) CBC W AUTOMATED DIFFERENTIAL (10/14/2024 11:06 AM PDT) WBC'S AUTO 14.2(H) 4.0 - 11.0 x1000/mcL [facility] RBC, AUTO 4.21 3.70 - 5.20 Mill/mcL [facility] HGB 11.8 11.5 - 16.0 g/dL [facility] HCT, AUTO 36.2 35.0 - 47.0 % [facility] MCV 86.0 81.0 - 99.0 fL [facility] MCH 28.0 25.0 - 35.0 pg/cell [facility] MCHC 32.6 30.0 - 35.0 g/dL [facility] RDW, BLOOD 13.9 11.5 - 16.0 % [facility] PLATELETS, AUTOMATED COUNT 327 130 - 400 x1000/mcL [facility] BLOOD / Unknown 10/14/2024 1 1:06 AM PDT Kelly Peralta) Yvan Quiroz HEMATOLOGY Performing Organization Address [facility] de Phone Number [facility] [address] [place] [address] documented in this encounter Visit Diagnoses Diagnosis ATRIAL FIBRILLATION W RAPID VENTRICULAR RESPONSE- Primary ATRIAL FIBRILLATION W RAPID VENTRICULAR RESPONSE VENTRICULAR TACHYCARDIA, PAROXYSMAL GENERALIZED ABDOMINAL PAIN HYPERLIPIDEMIA HTN DIVERTICULOSIS OF COLON ATHEROSCLEROSIS AORTA BILATERAL RENAL ARTERY STENOSIS DIASTOLIC HEART FAILURE, CHRONIC (HFPEF) DIASTOLIC HEART FAILURE, CHRONIC ATRIAL FIBRILLATION, UNSPECIFIED ATRIAL FIBRILLATION ANTICOAGULATION MONITORING, INR 2.0-3.0 HX OF MA, UNSPECIFIED TYPE documented in this encounter Administered [...] 50 mL/hr, ONE TIME, 1 dose, On Gauir 10/17/24 at 0930 New 10/17/2024 9:30 AM [...] chew or crush 1121 (Given - Provider: Latirce Fontanez R.N.)1723 (Given - Provider: Latrice Fontanez R.N.) [...] Discontinued 815 (Given - Provider: Latrice Fontanez RLaamrNLamar) Lisinopril Tab 5 mg (PRINIVIL/ZESTRIL) (CANCELED) 5 [...] products documented in this encounter Care Teams Felt Coverer Relationship Specialty Start Date End Date Wilmer Ludwig), Dilma. [address] [place] [address] PCP - General Family Practice 01/10/14 documented as of this encounter
--- OUTSIDE RECORDS SUMMARY | 2024-10-26 12:10 | XMS_ITS | Encounter Summary ---
Author Organization [facility] Address [address] [place] [address] Care Team Providers Care Extender Name Role Phone Wilmer Ludwig M.D., M.D. Primary Care Prov ider Unavailable Reason for Visit * Reason Comments HOSPITAL FOLLOW UP Encounter Details Date Type Department Care Team (Latest Contact Info) Description 10/26/2024 10:10 AM PDT Telephone Appointment Visit FAMILY PRACTICE [address] [place] [address] Tessy Kerr), MTano. [address] [place] [address] AFTERCARE FOLLOWING HOSPITALIZATION (Primary Dx); ANEMIA; ATRIAL FIBRILLATION W RAPID VENTRICULAR RESPONSE Social History Tobacco Use Types Packs/Day Years [...] as of this encounter Progress Notes * Tessy Kerr M.D., M.D. - 10/26/2024 9:24 AM PDT TELEPHONE APPOINTMENT VISIT (TAV) TELEHEALTH CONSENT Prior to rendering the telehealth services: 1. I explained that there is available a [id number]-[id number] appointment with a provider to render the same health care services as this telehealth encounter. 2. The patient consented to receive health care services via telehealth for this encounter. Saira Belle is a 79 year old female Reason for TAV: HOSPITAL FOLLOW UP Health Maintenance Due Topic Date Due IMM RSV (75 YRS AND OLDER) (1 - 1-dose 75+ series) Never done IMM COVID-19 (6 MO AND OLDER) (2023-) 03/03/2024 PHONE VISIT DOCUMENTATION: SUBJECTIVE: Saira Belle is a 79 year old female Chief Complaint Patient presents with HOSPITAL FOLLOW UP Saira Belle is a 79 year old [...] and was started on Amiodarone and increased Carvedilol.Upon discharge, patient's heart rate was rate controlled with stable vitals and labs Admission Date: 10/14/2024 Discharge Date: 10/21/2024 Discontinued Lisinopril due to hyponatremia and bilateral renal artery stenosis. - Increased Carvedilol to 12.5 mg PO BID. - Continue Amiodarone 400 mg PO BID x 7 more days. Then, decrease to Amiodarone 200 mg PO QD Doing better Diarrhea improved 2-3 loose BM per day, no blood No fever and chills No chest pain No palpitation; No shortness of breath No fever and chills No headache No dizziness Wt Readings from Last 3 Encounters: 10/19/24 64.1 kg (141 lb 5 oz) 10/14/24 64.4 kg (142 lb) 08/27/24 64.7 kg (142 lb 10.2 oz) Temp Readings from Last 3 Encounters: 10/21/24 36.1 ??C (97 ??F) 10/14/24 36.4 ??C (97.6 ??F) (Temporal) 08/27/24 36.6 ??C (97.8 ??F) (Temporal) BP Readings from Last 3 Encounters: 10/21/24 129/62 10/14/24 114/61 09/24/24 139/68 Pulse Readings from Last 3 Encounters: 10/21/24 62 10/14/24 77 09/24/24 89 WBC'S AUTO 10.7 10/22/2024 HGB 10.5 (L) 10/22/2024 HCT AUTO 31.4 (L) 10/22/2024 PLT'S AUTO 569 (H) 10/22/2024 HGB Date Value Ref Range Status 10/22/2024 10.5 (L) 11.5 - 16.0 g/dL Final 10/21/2024 9.7 (L) 11.5 - 16.0 g/dL Final 10/20/2024 10.0 (L) 11.5 - 16.0 g/dL Final 10/19/2024 10.2 (L) 11.5 - 16.0 g/dL Final 10/18/2024 10.0 (L) 11.5 - 16.0 g/dL Final 10/17/2024 10.5 (L) 11.5 - 16.0 g/dL Final 10/16/2024 10.8 (L) 11.5 - 16.0 g/dL Final 10/15/2024 10.9 (L) 11.5 - 16.0 g/dL Final 10/14/2024 11.8 11.5 - 16.0 g/dL Final 06/03/2024 11.6 11.5 - 16.0 g/dL Final 05/02/2024 11.2 (L) 11.5 - 16.0 g/dL Final 06/02/2023 13.6 11.5 - 16.0 g/dL Final 05/22/2023 12.5 11.5 - 16.0 g/dL Final 08/26/2022 11.5 11.5 - 16.0 g/dL Final 08/24/2022 11.7 11.5 - 16.0 g/dL Final 10/07/2021 12.2 12.0 - 16.0 g/dL Final 04/08/2021 11.2 (L) 12.0 - 16.0 g/dL Final 11/05/2020 11.7 (L) 12.0 - 16.0 g/dL Final 10/20/2020 11.9 (L) 12.0 - 16.0 g/dL Final 04/14/2020 13.1 12.0 - 16.0 g/dL Final K 3.8 10/22/2024 NA 127 (L) 10/22/2024 CL 93 (L) 10/22/2024 CO2 22 10/22/2024 HGBA1C 5.8 11/09/2023 NA Date Value Ref Range Status 10/22/2024 127 (L) 135 - 145 mEq/L Final 10/21/2024 125 (L) 135 - 145 mEq/L Final 10/21/2024 127 (L) 135 - 145 mEq/L Final 10/20/2024 123 (L) 135 - 145 mEq/L Final 10/20/2024 124 (L) 135 - 145 mEq/L Final 10/20/2024 124 (L) 135 - 145 mEq/L Final 10/20/2024 126 (L) 135 - 145 mEq/L Final 10/19/2024 129 (L) 135 - 145 mEq/L Final 10/19/2024 127 (L) 135 - 145 mEq/L Final 10/18/2024 130 (L) 135 - 145 mEq/L Final 10/17/2024 133 (L) 135 - 145 mEq/L Final 10/16/2024 134 (L) 135 - 145 mEq/L Final 10/15/2024 133 (L) 135 - 145 mEq/L Final 10/14/2024 131 (L) 135 - 145 mEq/L Final 09/10/2024 136 135 - 145 mEq/L Final 11/09/2023 141 135 - 145 mEq/L Final 06/02/2023 132 (L) 135 - 145 mEq/L Final 05/22/2023 137 135 - 145 mEq/L Final 04/25/2023 140 135 - 145 mEq/L Final 08/26/2022 138 135 - 145 mEq/L Final 04/06/2022 141 135 - 145 mEq/L Final 10/07/2021 140 135 - 145 mEq/L Final 04/08/2021 139 135 - 145 mEq/L Final 10/20/2020 137 135 - 145 mEq/L Final 10/08/2020 139 135 - 145 mEq/L Final 04/14/2020 138 135 - 145 mEq/L Final 03/31/2020 143 135 - 145 mEq/L Final 08/06/2019 139 135 - 145 mEq/L Final 06/13/2018 142 135 - 145 mEq/L Final 05/30/2018 142 135 - 145 mEq/L Final Transthoracic Echo, Limited (10/14/2024) - Left Ventricle: [...] is unchanged arteriosclerosis of the aortic knob. NA Date Value Ref Range Status 10/22/2024 127 (L) 135 - 145 mEq/L Final 10/21/2024 125 (L) 135 - 145 mEq/L Final 10/21/2024 127 (L) 135 - 145 mEq/L Final 10/20/2024 123 (L) 135 - 145 mEq/L Final 10/20/2024 124 (L) 135 - 145 mEq/L Final 10/20/2024 124 (L) 135 - 145 mEq/L Final 10/20/2024 126 (L) 135 - 145 mEq/L Final 10/19/2024 129 (L) 135 - 145 mEq/L Final 10/19/2024 127 (L) 135 - 145 mEq/L Final 10/18/2024 130 (L) 135 - 145 mEq/L Final 10/17/2024 133 (L) 135 - 145 mEq/L Final 10/16/2024 134 (L) 135 - 145 mEq/L Final 10/15/2024 133 (L) 135 - 145 mEq/L Final 10/14/2024 131 (L) 135 - 145 mEq/L Final 09/10/2024 136 135 - 145 mEq/L Final 11/09/2023 141 135 - 145 mEq/L Final 06/02/2023 132 (L) 135 - 145 mEq/L Final 05/22/2023 137 135 - 145 mEq/L Final 04/25/2023 140 135 - 145 mEq/L Final 08/26/2022 138 135 - 145 mEq/L Final Past Medical History: Diagnosis Date HX OF [...] FIBRILLATION, UNSPECIFIED 10/21/2015 HTN (HYPERTENSION) HYPERLIPIDEMIA SYNCOPE ASSESSMENT: Encounter Diagnoses Code Name Primary? Z51.89 AFTERCARE FOLLOWING HOSPITALIZATION Yes D64.9 ANEMIA I48.91 ATRIAL FIBRILLATION W RAPID VENTRICULAR RESPONSE PLAN: Orders Placed This Encounter ELECTROLYTE PANEL (NA, K, CL, CO2) CBC NO DIFF CREATININE Diarrhea improved If any worrisome symptoms or worsening of condition, patient advised to seek emergent help. Call orreturn to clinic PRN. Otherwise, follow up results in a week Patient verbalized understanding and agreed with plan. Today, I spent 18 minutes on evaluation and medical management 10/26/2024 TESSY KERR MD documented in this encounter Plan of Treatment Upcoming Encounters Date Type Department Care Team (Late st Contact Info) Description 03/05/2025 10:00 AM PDT Office Visit CARDIOLOGY [address] [place] [address] Melanie Osuna (N.P.), N.P. [address] [place] [address] documented as of this encounter Procedures Procedure Name Priority Date/Time Associated Diagnosis Comments CREATININE Routine 10/29/2024 12:10 PM PDT ANEMIA AFTERCARE FOLLOWING HOSPITALIZATION ELECTROLYTE PANEL (NA, K, CL, CO2) Routine 10/29/2024 12:10 PM PDT AFTERCARE FOLLOWING HOSPITALIZATION CBC NO DIFFERENTIAL Routine 10/29/2024 1 2:10 PM PDT ANEMIA AFTERCARE FOLLOWING HOSPITALIZATION documented in this encounter Results * CREATININE (10/29/2024 12:10 PM PDT) CREATININE 0.87 0.57 - 1.11 mg/dL [facility], CLINICAL PATHOLOGY [facility] Comment: Please review results carefully for any changes to reference ranges (indicated by R superscript). Deployment of new chemistry analyzers is occurring across [facility] through 2026. EGFR, CREATININE-BASED FORMULA (CKD-EPI 2020) 67 >=60 mL/min/BSA [facility], CLINICAL PATHOLOGY [facility] Comment: GFR estimate is by the CKD-EPI [...] p roteinuria as appropriate. BLOOD / Unknown 10/29/2024 1 2:10 PM PDT Narrative [facility], [facility] - 10/30/2024 2:29 AM PDT CH[facility]IS ACCN: [id number] Tessy Peralta) Usha Quiroz SERUM CH EMISTRY [facility], [facility] [address] [place] [address] * (ABNORMAL) CBC NO DIFFERENTIAL (10/29/2024 12:10 PM PDT) WBC'S AUTO 8.3 4.0 - 11.0 x1000/mcL [facility] RBC, AUTO 3.75 3.70 - 5.20 Mill/mcL [facility] HGB 10.6(L) 11.5 - 16.0 g/dL [facility] HCT, AUTO 32.5(L) 35.0 - 47.0 % [facility] MCV 86.7 81.0 - 99.0 fL [facility] MCH 28.3 25.0 - 35.0 pg/cell [facility] MCHC 32.6 30.0 - 35.0 g/dL [facility] RDW, BLOOD 14.6 11.5 - 16.0 % [facility] PLATELETS, AUTOMATED COUNT 482(H) 130 - 400 x1000/mcL [facility], [facility] BLOOD / Unknown 10/29/2024 1 2:10 PM PDT Narrative [facility], [facility] - 10/30/2024 12:32 AM PDT [facility] ACCN: [id number] Tessy Peralta) Usha Quiroz HEMATOLO GY Performing Organization Address [facility]/ZIP Co de Phone Number [address] [address] * (ABNORMAL) ELECTROLYTE PANEL (NA, K, CL, CO2) (10/29/2024 12:10 PM PDT) SODIUM 137 136 - 145 mEq/L [facility] POTASSIUM 3.0(L) 3.5 - 5.1 mEq/L [facility], [facility] CHLORIDE 101 98 - 113 mEq/L [facility] CO2 27 23 - 31 mEq/L [facility] Comment: Please review results carefully for any changes to reference ranges (indicated by R superscript). Deployment of new chemistry analyzers is occurring across [facility] through 2026. BLOOD / Unknown 10/29/2024 1 2:10 PM PDT Narrative [facility] - 10/30/2024 2:29 AM PDT [facility] ACCN: [id number] Tessy Peralta) Usha Quiroz SERUM CH EMISTRY Performing Organization Address [facility]/ZIP Co de Phone Number [facility] [id number] [place] [address] documented in this encounter Visit Diagnoses Diagnosis AFTERCARE FOLLOWING HOSPITALIZATION- Primary ANEMIA ATRIAL FIBRILLATION W RAPID VENTRICULAR RESPONSE documented in this encounter Care Teams Extender Relationship Specialty Start Date End Date Wilmer Ludwig), Dilma. [address] [address] PCP - General Family Practice 01/10/14 documented as of this encounter
--- OUTSIDE RECORDS SUMMARY | 2024-11-06 17:00 | XMS_ITS | Encounter Summary ---
Author Organization [facility] Address [address] [place] [address] Care Team Providers Care Coin Machine Collector Name Role Phone Wilmer Ludwig) Richie Primary Care Prov ider Unavailable Reason for Visit * Reason Comments HOSPITAL FOLLOW UP Encounter Details Date Type Department Care Team (Late st Contact Info) Description 11/06/2024 3:00 PM PDT Office Visit CARDIOLOGY [address] [place] [phone] Melanie Osuna (N.P.), N.P. [address] [place] [address] ATRIAL FIBRILLATION, PAROXYSMAL; HTN; HYPERLIPIDEMIA; PRESENCE OF CARDIAC PACEMAKER Social History Tobacco Use Types Packs/Day Years [...] Sign Reading Time Taken Comments Blood Pressure 161/56 11/06/2024 2:51 PM PDT Pulse 62 11/06/2024 2:51 PM PDT Temperature 36.7 C (98 F) 11/06/2024 2:41 PM PDT Respiratory Rate - - Oxygen Saturation - - Inhaled Oxygen Concentration - - Weight - - Height 160 cm (5' 3) 11/06/2024 2:41 PM PDT Body Mass Index - - documented in this encounter Patient Instructions * Patient Instructions* Melanie Osuna (N.P.), N.P. - 11/06/2024 3:27 PM PDT documented in this encounter Progress Notes * Melanie Osuna (N.P.), N.P. - 11/06/2024 2:57 PM PDT CARDIOLOGY OUTPATIENT FOLLOW UP NOTE PATIENT'S CHIEF COMPLAINT: Hospital Follow Up Primary Supervisor Payroll: Dr Francheska Lares (last seen 06/2023) HISTORY OF PRESENT ILLNESS: Saira Belle is a 79 year old female who presents for post hospital cardiac follow up. From Dr Lares Note 06/2023: -April 2012: Hospitalized for syncope, thought to be due to orthostatic hypotension. -October 2012 ([place]): Chest pain in setting of hypertensive urgency. -October 2015: Hospitalized for AF with RVR. Syncope in setting of excess vomiting. -July 2016: Admitted with AF with RVR. Mildly elevated troponin up to 0.21. Mildly abnormal SPECT with medical Rx recommended. -Hospitalized 04/09/18 to 04/11/18 for AF with RVR. Discharged on diltiazem 120 mg BID and now off lisinopril/carvedilol. -08/26/22: Seen in ER for chest pain, shortness of breath. Found to be in atrial fibrillation with rapid ventricular rate. Given diltiazem and spontaneously converted to sinus rhythm. Outpatient Lexiscan Cardiolite ordered (she did not schedule as did not want to do). -05/23/23: Pacemaker implantation at [facility] by Dr. Jade for tachy-[place]. -06/2023: Last seen by me 04/21/23. She is here today with her . Doing fine cardiac rodriguez. Had an episode of PAF on 06/06/23 that she was told about. Not feeling palpitations. Had flu after pacemaker implantation. INTERVAL HISTORY: 10/14/2024 - presented to with abdominal pain and diarrhea. Noted to be in AF RVR so taken to ER and admitted. Rate control achieved with IVF and IV amio. Diagnosed with colitis - poor oral intake prior to admit likely trigger. Today a lot of questions about Amio and if she should swtich to Pradaxa. Feels well, back in sinus. Abdominal symptoms resolved. Feels like Amio has altered her taste. PRIOR CARDIAC STUDIES: -ECHOCARDIOGRAM 04/26/12: LV size is normal. LV systolic function is preserved. LVEF is estimated at 60%. Grade I diastolic dysfunction. No aortic stenosis. Mild to moderate aortic regurgitation. -ECHOCARDIOGRAM 10/22/15: 1. Study Quality: The study quality is fair 2. LV: Normal LV systolic function. EF 60% 3. Grade II diastolic dysfunction.pattern. 4. Valve findings: mild to moderate valvular findings AI, PI, mild TR, trace MR. 5. Estimated normal pulmonary systolic pressure 6. No mass, vegetation or thrombus visualized. 7. LA / mild chamber enlargement. 8. No significant pericardial effusion. -STRESS ECHO 07/31/16: Stressed for 3:25 minutes to stage 2 of a standard Momo protocol. Stress test symptoms: None reported Functional aerobic capacity, METS 4.9, is poor. Peak HR 106 bpm (72% MPHR) is submaximal. Peak BP 170/99. Peak stress rate pressure product 89388 is submaximal. Inadequate workload achieved. ECG Findings: Baseline: Sinus 68 bpm, normal axis, +LVH, no ST-T changes Stress: No significant ischemic changes Stress Echo LV Function: The LVEF is higher compared to that at baseline (LVEF 70-75% vs LVEF 60-65% at baseline). No new regional LV wall motion abnormalities are seen during stress at the submaximal workload achieved. Study Conclusions: - Normal resting LVEF without significant regional wall motion abnormalities -Moderate grade aortic regurgitation (PHT 409 msec) -No evidence of stress induced ischemia by clinical, ECG, and echo criteria at the submaximal workload achieved -Inconclusive study for myocardial ischemia. If clinically indicated, a pharmacologic cardiac stress study can be considered for further evaluation. -SPECT 08/01/16: 1. Mild reversible ischemia of the inferolateral wall. 2. Very mild reversible perfusion defect of the apex and apical anterior wall, which may be due to very mild degree of ischemia. 3. Normal LV size and LVEF. -ECHOCARDIOGRAM 04/10/18: 1. NSR with frequent ectopy. 2. Normal LV size, wall motion and systolic function. EF 60-65%. 3. Mild concentric LVH with moderate (grade 2) diastolic dysfunction. 4. Normal RV size and function. 5. Bi-atrial enlargement. Severe LAE, visually moderate to severe ADAN. Left atrial volume index is 50 cm2/m2. 6. Mild degenerative valvular disease. Mild MR/AR, mild to moderate TR/MR. 7. RVSP estimated at 40 mmHg -HOLTER 04/26/23: CONCLUSIONS There were 4 patient triggered events [...] rate while in Afib was 113 bpm. -ECHOCARDIOGRAM 05/23/23: Limited study for EF Left Ventricle: Left ventricle size is normal. Mild septal thickening. Normal systolic function with an estimated EF of 55 - 60%. Right Ventricle: Right ventricle size is normal. Normal systolic function. Aortic Valve: Mild aortic regurgitation. -ECHOCARDIOGRAM 10/14/2024 Left Ventricle: Normal systolic function with an estimated EF of 55 - 60%. No regional wall motion abnormalities observed. IVC/SVC: Normal (<2.1 cm) IVC size with greater than 50% collapse, estimated right atrial pressure of 3 mmHg (normal). Limited study Atrial fibrillation with RVR PAST MEDICAL/SURGICAL HISTORY: -Atrial fibrillation -S/P PPM ([employer]) 05/23/23 for tachy-[place] -Heart failure with preserved ejection fraction -Hypertension -Hyperlipidemia -Prediabetes -Chronic kidney disease, stage 3 -Bilateral renal artery stenosis, followed by Nephrology -Allergic rhinitis -Osteoporosis -Osteoarthritis -Diverticulosis -Hemorrhoids -Glaucoma -S/P hysterectomy -S/P bladder repair -S/P cataract surgery -S/P left hip replacement 04/28/21 ALLERGIES: Allergies Allergen Reactions Demerol [Meperidine Hcl] Meperidine Skin Rash and/or Hives Non-Steroidal Anti-Inflammatory Agents [id number] Heart Failure. Exception to this NSAID intolerance is aspirin 81- 325mg daily and topical or ophthalmic nsaids' [id number] Heart Failure. Exception to this NSAID intolerance is aspirin 81- 325mg daily and topical or ophthalmic nsaids' Codeine And Opiate Derivatives Skin Rash and/or Hives Flagyl [Metronidazole] Other Nausea, GI upset Hydrochlorothiazide Hyponatremia in setting of HCTZ Hyponatremia in setting of HCTZ Oxycodone-Acetaminophen Skin Rash and/or Hives Oxycodone-Aspirin Skin Rash and/or Hives Penicillins Class Skin Rash and/or Hives Cefuroxime Axetil Skin Rash and/or Hives Noted with antibiotics given in [place]. Noted with antibiotics given in [place]. Sulfa (Sulfonamide Antibiotics) Skin Rash and/or Hives CURRENT MEDICATIONS: Outpatient Medications Marked as Taking for the 11/06/24 encounter (Office Visit) with Melanie Osuna (Zeyad), DoritaPLamar Medication Sig Dispense Refill Carvedilol (COREG) 12.5 mg Oral Tab Take 1 tablet by mouth 2 times a day 100 tablet 3 Amiodarone (PACERONE) 200 mg Oral Tab Take 2 tablets by mouth 2 times a day for 7 days, THEN 1 tablet daily for 60 days. 100 tablet 3 Atorvastatin (LIPITOR) 10 mg Oral Tab Take 1 tablet by mouth daily to lower cholesterol and keep arteries open 100 tablet 3 Warfarin 2 mg Oral Tab Take by mouth as directed by Anticoagulation clinic 150 tablet 0 dilTIAZem (CARDIZEM CD) 120 mg Oral 24hr SR Cap Take 1 capsule by mouth 2 times a day 200 capsule 2 cloNIDine (CATAPRES-TTS 1) 0.1 mg/24 hr TD Weekly Patch Apply 1 Patch to skin every 7 days . Removeold patch before applying the new one 12 Patch 4 dilTIAZem (CARDIZEM) 30 mg Oral Tab Take 1 tablet by mouth up to 3 times a day as needed atrial fibrillation episodes 100 tablet 3 Latanoprost (XALATAN) 0.005 % Opht Drop Instill 1 Drop in both eyes daily at bedtime for Glaucoma 10 mL 12 Dorzolamide-Timolol (COSOPT) 22.3-6.8 mg/mL Opht Drop Instill 1 Drop in both eyes 2 times a day 20 mL 11 SOCIAL HISTORY: Marital status: . Occupation: Retired. Tobacco history: Never. Alcohol history: Once in a while. Illicit drug use history: No. FAMILY HISTORY: Daughter with CHF. Aunts with CHF. REVIEW OF SYSTEMS: Review of Systems Respiratory: Negative for shortness of breath. Cardiovascular: Negative for chest pain and leg swelling. Gastrointestinal: Negative for blood in stool. No melena. Neurological: Negative for dizziness and syncope. PHYSICAL EXAMINATION: Physical Exam Constitutional: General: She is not in acute distress. Appearance: Normal appearance. HENT: Head: Normocephalic and atraumatic. Cardiovascular: Rate and Rhythm: Normal rate and regular rhythm. Heart sounds: Murmur heard. Pulmonary: Effort: Pulmonary effort is normal. Breath sounds: Normal breath sounds. Abdominal: General: Abdomen is flat. Palpations: Abdomen is soft. Musculoskeletal: General: Normal range of motion. Skin: General: Skin is warm and dry. Neurological: General: No focal deficit present. Mental Status: She is alert. DATA: VITAL SIGNS: BP (!) 161/56 (BP Location: LA-LEFT ARM, BP Patient Position: STANDING, Cuff Size: Standard Adult) Pulse 62 Temp 36.7 ??C (98 ??F) (Temporal) Ht 1.6 m (5' 3) BMI 25.03 kg/m?? BP Readings from Last 3 Encounters: 11/06/24 (!) 161/56 10/21/24 129/62 10/14/24 114/61 Pulse Readings from Last 3 Encounters: 11/06/24 62 10/21/24 62 10/14/24 77 Wt Readings from Last 3 Encounters: 10/19/24 64.1 kg (141 lb 5 oz) 10/14/24 64.4 kg (142 lb) 08/27/24 64.7 kg (142 lb 10.2 oz) WBC'S AUTO 8.3 10/29/2024 HGB 10.6 (L) 10/29/2024 HCT AUTO 32.5 (L) 10/29/2024 PLT'S AUTO 482 (H) 10/29/2024 CREAT 0.87 10/29/2024 BUN 9 10/22/2024 K 4.0 11/04/2024 NA 137 10/29/2024 CL 101 10/29/2024 CO2 27 10/29/2024 EGFR CREATININE-BASED 67 10/29/2024 EGFR CREATININE-BASED 64 10/22/2024 EGFR CREATININE-BASED 83 10/21/2024 GFR 54 (L) 10/07/2021 GFR 42 (L) 04/08/2021 GFR 61 10/20/2020 INR 3.1 (H) 11/04/2024 CHOL 176 11/09/2023 TRIG 108 11/09/2023 HDL 69 11/09/2023 LDL CALC 88 11/09/2023 LDL 68 04/08/2021 CHOL/HDL 2.6 11/09/2023 TRIGLYCERIDE, NONFASTING 96 04/08/2021 ALT 14 10/22/2024 AST 20 10/14/2024 ALKP 50 10/22/2024 TBILI 0.6 10/22/2024 TSH 1.77 10/26/2022 CT CHEST 08/26/22: FINDINGS: Atherosclerotic coronary artery calcification. Mild cardiomegaly. Lungs, mediastinum, pleura and bony thorax are otherwise normal. IMPRESSION Atherosclerotic coronary artery calcification. Mild cardiomegaly. CXR 06/02/23: FINDINGS/IMPRESSION: Pacemaker and leads remain in place. The lungs are clear. No pleural effusions are seen. The cardiomediastinal silhouette is normal. ELECTROCARDIOGRAM, reviewed on MUSE: -From 10/21/15: Atrial fibrillation with ventricular response 153 bpm. LVH. [address] depression inferolateral leads. -From 10/22/15: NSR. LVH. Nonspecific ST-T abnormalities. -From 07/30/16: NSR. Left atrial enlargement. LVH with repolarization abnormalities. -From 04/09/18: Atrial fibrillation with ventricular response [address] depression. -From 04/09/18: Atrial fibrillation with ventricular rate 144 bpm. LVH with repolarization. -From 08/12/22: NSR. Left atrial enlargement. -From 08/26/22 @ 0925: Atrial fibrillation with ventricular rate 141 bpm. LVH with repolarization abnormalities. -From 08/26/22 @ 1037: NSR. LVH with repolarization. QTc 417 msec. -From 10/26/2022: NSR. No significant ST-T abnormalities. QTc 444 msec. -From 04/21/2023: Atrial fibrillation with ventricular rate [address] depression. -From 06/02/23: NSR. LVH with repolarization abnormalities. IMPRESSION/RECOMMENDATIONS: 1. Atrial fibrillation, paroxysmal. Recent admit for RVR in setting of colitis and decreased oral intake. Rate.rhythm and controlled with IVF and IV amiodarone, transitioned to oral at discharge. Currently in sinus rhythm. [id number] score 5. -continue diltiazem 120mg BID -continue coreg 12.5mg BID -continue Amiodarone 200mg daily - she does not want to stay on this detention. She is leaving the state for the next few months, so will continue for now. Wants to revisit in March when she returns to [place]. Discussed lab monitoring with Amio - due in April if she stays on it. -continue warfarin. Discussed switching to Pradaxa and she is agreeable, however, wants to wait until her return in Mar. 2. S/P PPM ([employer]) 05/23/23 for tachy-[place]. -Last interrogated 08/2024 with normal function. - continue routine follow up 3. Hypertension. Followed by Nephrology for renal artery stenosis. -Continue antihypertensives. 5. Hyperlipidemia. -On statin. RTC 03/2025 Electronically signed by Melanie Osuna NP Department of Cardiology [facility] 11/06/2024 2:59 PM documented in this encounter Nursing Notes * Jael Ann F - 11/06/2024 2:52 PM PDT Melanie Osuna CLOTHING SALES ASSISTANT prefer to review patient's medications. PROACTIVE CARE ACTIONS Proactive Office Encounter Actions: Blood Pressure above goal, repeat blood pressure taken and documented Hypertension Registry Member: Member has home blood pressure monitoring log Patient declined vaccine. Reminded doctor to provide Covid Vaccine information RSV Immunization declined Advance Directive Patient Instructions for AVS staged Back Office Staff Chief Complaint Patient presents with HOSPITAL FOLLOW UP Vitals: 11/06/24 1441 11/06/24 1451 BP: (!) 179/59 (!) 161/56 BP Patient Position: SITTING STANDING BP Location: LA-LEFT ARM LA-LEFT ARM Cuff Size: Standard Adult Standard Adult Pulse: 62 62 Temp: 36.7 ??C (98 ??F) TempSrc: Temporal Height: 1.6 m (5' 3) LIFE CARE PLANNING ADVOCATE NOTE Patient provided the following: Life Care Planning (LCP) overview The importance of selecting a healthcare decision maker and review of the qualities of a well-chosen healthcare decision maker: Agrees to be your decision maker and knows you well. Someone you trust to honor your wishes & values, even if they are different from their own. Able to make decisions in difficult situations. Healthcare Decision Maker Identified: Healthcare decision maker not identified at this time Follow-up Plan: Patient given an advance directive to complete Electronically signed by: JAEL MCLEOD 11/06/2024 2:53 PM documented in this encounter Plan of Treatment Upcoming Encounters Date Type Department Care Team (Late st Contact Info) Description 03/05/2025 10:00 AM PDT Office Visit CARDIOLOGY [address] [id number] Melanie Osuna (N.P.), N.P. [address] [place] [phone] documented as of this encounter Visit Diagnoses Diagnosis ATRIAL FIBRILLATION, PAROXYSMAL HTN HYPERLIPIDEMIA PRESENCE OF CARDIAC PACEMAKER documented in this encounter Care Teams Coin Machine Collector Relationship Specialty Start Date End Date Wilmer Ludwig), MTano. [address] [phone] PCP - General Family Practice 01/10/14 documented as of this encounter
--- OUTSIDE RECORDS SUMMARY | 2024-11-15 13:40 | XMS_ITS | Encounter Summary ---
Author Organization [facility] Address [address] [place] [address] Care Team Providers Care Scene Painter Name Role Phone Wilmer uLdwig) Richie Primary Care Prov ider Unavailable Reason for Visit * Reason Comments FOLLOW UP EXAM Encounter Details Date Type Department Care Team (Late st Contact Info) Description 11/15/2024 11:40 AM PDT Telephone Appointment Visit FAMILY PRACTICE [address] [place] [phone] Wilmer Ludwig), M.D. [address] [place] [address] ATRIAL FIBRILLATION, UNSPECIFIED (Primary Dx); HTN; HYPERLIPIDEMIA; PREDIABETES; OSTEOPOROSIS; ATHEROSCLEROSIS AORTA; OSTEOARTHRITIS OF LEFT KNEE; SENILE PURPURA; DIASTOLIC HEART FAILURE, CHRONIC (HFPEF); BILAT PRIMARY OPEN ANGLE GLAUCOMA; OSTEOARTHRITIS OF LEFT HIP; HX OF NC, UNSPECIFIED TYPE; CKD STAGE 3A (GFR 45-59); [...] up Seen card Melanie Osuna 11/06/2024 Recently [facility] and admitted fast heart rate. Had dual chamber pacemaker placed 05/2023 Currently in [place]. [place]. Staying for most summer. Did discuss with changing to pradaxa when back from [place]. Did talk with coumadin. BP Readings from [...] OSTEOARTHRITIS OF LEFT HIP I25.2 HX OF NC, UNSPECIFIED TYPE N18.31 CKD STAGE 3A (GFR [...] 10:00 AM PDT Office Visit CARDIOLOGY [address] [place] [phone] Melanie Osuna (N.P.), N.P. [address] [place] [phone] documented as of this encounter Visit Diagnoses Diagnosis ATRIAL FIBRILLATION, UNSPECIFIED- Primary ATRIAL FIBRILLATION HTN HYPERLIPIDEMIA PREDIABETES OSTEOPOROSIS ATHEROSCLEROSIS AORTA OSTEOARTHRITIS OF LEFT KNEE OSTEOARTHRITIS OF L KNEE SENILE PURPURA DIASTOLIC HEART FAILURE, CHRONIC (HFPEF) DIASTOLIC HEART FAILURE, CHRONIC BILAT PRIMARY OPEN ANGLE GLAUCOMA OSTEOARTHRITIS OF LEFT HIP OSTEOARTHRITIS OF L HIP HX OF NC, UNSPECIFIED TYPE CKD STAGE 3A (GFR 45-59) SUPRAVENTRICULAR TACHYCARDIA, NONSUSTAINED ANTICOAGULATION MONITORING, INR 2.0-3.0 ANEMIA documented in this encounter Care Teams Scene Painter Relationship Specialty Start Date End Date Wilmer Ludwig), Dilma. [address] [place] [phone] PCP - General Family Practice 01/10/14 documented as of this encounter
--- OUTSIDE RECORDS SUMMARY | 2024-11-29 16:51 | XMS_ITS | Encounter Summary ---
Author Organization [facility] Address [address] [place] [address] Care Team Providers Care Drawbench Operator Helper Name Role Phone Wilmer Ludwig) Richie Primary Care Prov ider Unavailable Reason for Visit * Reason Onset Date Comments PHARMACY ANTICOAGULATION CLINIC SERVICE 10/30/19 25 Encounter Details Date Type Department Care Team (Late st Contact Info) Description 10/29/2024 Telephone HEATH IP PHARMACY MAIN DEFAULT [id number] [place] [address] Shante Anglin (Pharm.D), PHARM.D. [address] [place] [address] PHARMACY ANTICOAGULATION CLINIC SERVICE Social [...] Clinic After Hours Note RE: Saira Belle, [phone] Spoke with patient regarding critical INR. No [...] signed by: Shante Anglin Clinical Pharmacist Specialist [facility] 10/29/2024 7:45 PM documented in this encounter Plan of Treatment Upcoming Encounters Date Type Department Care Team (Late st Contact Info) Description 03/05/2025 10:00 AM PDT Office Visit CARDIOLOGY [address] [phone] Melanie Osuna (N.P.), N.P. [address] [place] [phone] documented as of this encounter Visit Diagnoses Not on filedocumented in this encounter Care Teams Drawbench Operator Helper Relationship Specialty Start Date End Date Wilmer Ludwig), MTano. [address] [address] PCP - General Family Practice 01/10/14 documented as of this encounter
--- OUTSIDE RECORDS SUMMARY | 2024-11-29 16:51 | XMS_ITS | Encounter Summary ---
Author Organization [facility] Address [address] [place] [address] Care Team Providers Care Restorer Lace And Textiles Name Role Phone Wilmer Ludwig) Richie Primary Care Prov ider Unavailable Encounter Details Date Type Department Care Team (Late st Contact Info) Description 10/30/2024 Telephone FAMILY PRACTICE [address] [place] [address] Tessy Kerr), M.D. [address] [place] [address] Social History Tobacco Use Types [...] Left message on voicemail to call back [phone] & encounter left open waiting for patient [...] advise Any worrisome symptoms, follow up with ma or C, such as but not limited [...] AM PDT Office Visit CARDIOLOGY [address] [place] [address] Melanie Osuna (N.P.), N.P. [address] [place] [address] documented as of this encounter Procedures Procedure Name Priority Date/Time Associated Diagnosis Comments POTASSIUM Routine 11/04/2024 8:41 AM PDT HYPOKALEMIA documented in this encounter Results * POTASSIUM (11/04/2024 8:41 AM PDT) POTASSIUM 4.0 3.5 - 5.1 mEq/L [facility], CLINICAL PATHOLOGY [facility] Comment: Please review results carefully for any changes to reference ranges (indicated by R superscript). Deployment of new chemistry analyzers is occurring across through 2026. BLOOD / Unknown 11/04/2024 8 :41 AM PDT Narrative [facility], CLINICAL PATHOLOGY [facility] - 11/04/2024 3:11 PM PDT [facility] ACCN: [id number] Wilmer Ludwig M.D. SERUM CHEM ISTRY [facility], CLINICAL PATHOLOGY [facility] [address] [place] [address] documented in this encounter Visit Diagnoses Diagnosis HYPOKALEMIA documented in this encounter Care Teams Restorer Lace And Textiles Relationship Specialty Start Date End Date Wilmer Ludwig M.D., Dilma. [address] [address] PCP - General Family Practice 01/10/14 documented as of this encounter
--- OUTSIDE RECORDS SUMMARY | 2024-11-29 16:52 | XMS_ITS | Encounter Summary ---
Author Organization [facility] Address [address] [place] [address] Care Team Providers Care Rehabilitation Counselor Name Role Phone Wilmer Ludwig) Dilma. Primary Care Prov ider Unavailable Encounter Details Date Type Department Care Team (Late st Contact Info) Description 03/23/2021 Refill FAMILY PRACTICE [address] [place] [address] Wilmer Ludwig), M.D. [address] [place] [address] Medications Social History Tobacco Use [...] PDT Office Visit CARDIOLOGY [address] [place] [address] Melanie Osuna (N.P.), N.P. [address] [place] [phone] documented as of this encounter Visit Diagnoses Diagnosis HTN (HYPERTENSION) HTN documented in this encounter Care Teams Rehabilitation Counselor Relationship Specialty Start Date End Date Wilmer Ludwig), MTano. [address] [place] [address] PCP - General Family Practice 01/10/14 documented as of this encounter
--- OUTSIDE RECORDS SUMMARY | 2024-11-29 16:52 | XMS_ITS | Encounter Summary ---
Author Organization [facility] Address [address] [place] [address] Care Team Providers Care Community Director Name Role Phone Wilmer Ludwgi) Richie Primary Care Prov ider Unavailable Encounter Details Date Type Department Care Team (Late st Contact Info) Description 05/11/2021 Home Care Visit DEFAULT [facility] [address] [address] Social History Tobacco Use Types [...] Office Visit CARDIOLOGY [address] [phone] Melanie Osuna (N.P.), N.P. [address] [place] [phone] documented as of this encounter Visit Diagnoses [...] Yes documented in this encounter Care Teams Community Director Relationship Specialty Start Date End Date Wilmer Ludwig), Dilma. [address] [address] PCP - General Family Practice 01/10/14 documented as of this encounter
--- OUTSIDE RECORDS SUMMARY | 2024-11-29 16:52 | XMS_ITS | Encounter Summary ---
Author Organization [facility] Address [address] [place] [place] [address] Care Team Providers Care Nylon Winder Name Role Phone Wilmer Ludwig) Richie Primary Care Prov ider Unavailable Encounter Details Date Type Department Care Team ([facility] Contact Info) Description 05/04/2021 Home Care Visit DEFAULT [facility] [address] [address] Social History Tobacco Use [...] PDT Office Visit CARDIOLOGY [address] [phone] Melanie Osuna (N.P.), N.P. [address] [place] [phone] documented as of this encounter Visit Diagnoses Not on filedocumented in this encounter Care Teams Nylon Winder Relationship Specialty Start Date End Date Wilmer Ludwig), Dilma. [address] [place] [place] [address] PCP - General Family Practice 01/10/14 documented as of this encounter
--- OUTSIDE RECORDS SUMMARY | 2024-11-29 16:52 | XMS_ITS | Encounter Summary ---
Author Organization [facility] Address [address] [place] [address] Care Team Providers Care Repair Miller Name Role Phone Wilmer Ludwig) Richie Primary Care Prov ider Unavailable Encounter Details Date Type Department Care Team (Late st Contact Info) Description 05/04/2021 Home Care Visit DEFAULT HOME [address] [address] Social History Tobacco Use Types [...] AM PDT Office Visit CARDIOLOGY [address] [place] [phone] Melanie Osuna (N.P.), N.P. [address] [place] [phone] documented as of this encounter Visit Diagnoses Not on filedocumented in this encounter Care Teams Repair Miller Relationship Specialty Start Date End Date Wilmer Ludwig M.D., Dilma. [address] [place] [address] PCP - General Family Practice 01/10/14 documented as of this encounter
--- OUTSIDE RECORDS SUMMARY | 2024-11-29 16:52 | XMS_ITS | Encounter Summary ---
Author Organization [facility] Address [address] [facility] [place] [address] Care Team Providers Care [id number] Armor Crewman Name Role Phone Wilmer Ludwig) Richie Primary Care Prov ider Unavailable Encounter Details Date Type Department Care Team (Late st Contact Info) Description 05/08/2021 Home Care Visit DEFAULT HOME [address] [address] Social History Tobacco Use Types [...] AM PDT Office Visit CARDIOLOGY [address] [place] [phone] Melanie Osuna (N.P.), N.P. [address] [place] [phone] documented as of this encounter Visit Diagnoses Not on filedocumented in this encounter Care Teams M60A2 Armor Crewman Relationship Specialty Start Date End Date Wilmer Ludwig M.D., Dilma. [address] [place] [address] PCP - General Family Practice 01/10/14 documented as of this encounter
--- OUTSIDE RECORDS SUMMARY | 2024-11-29 16:52 | XMS_ITS | Encounter Summary ---
Author Organization [facility] Address [address] [place] [place] [address] Care Team Providers Care Employment Trainer Name Role Phone Wilmer Ludwig) Richie Primary Care Prov ider Unavailable Encounter Details Date Type Department Care Team (Late st Contact Info) Description 05/12/2022 Orders Only SC[facility] IE E-VISITS ADMIN DEPT [address] [place] [address] Scal E-Visit, Provider (Richie)Richie [address] [place] [address] VACCINATION FOR SARS-COV-2 Social History Tobacco Use [...] AM PDT Office Visit CARDIOLOGY [address] [place] [address] Melanie Osuna (N.P.), N.P. [address] [place] [address] documented as of this encounter Visit Diagnoses Diagnosis VACCINATION FOR SARS-COV-2 documented in this encounter Care Teams Employment Trainer Relationship Specialty Start Date End Date Wilmer Ludwig), Dilma. [address] [facility] [place] [address] PCP - General Family Practice 01/10/14 documented as of this encounter
--- OUTSIDE RECORDS SUMMARY | 2024-11-29 16:52 | XMS_ITS | Encounter Summary ---
Author Organization [facility] Address [address] [place] [address] Care Team Providers Care Web Development Director Name Role Phone Wilmer Ludwig M.D., M.D. Primary Care Prov ider Unavailable Reason for Visit * Reason Onset Date Comments HOSPITAL FOLLOW UP 10/22/2024 Transitional Care Management / Post Hospital Discharge Call - Continuing Care Services Encounter Details Date Type Department Care Team (Latest Contact Info) Description 10/22/2024 Transitional Care Mgmnt-Telephone CONTINUING CARE LTC DEFAULT [id number] [place] [address] Uche Hensley (R.N.), R.N. [address] [place] [address] HOSPITAL FOLLOW UP (Transitional Care Management / [...] but it was not discontinued from the [facility] meds list. Electronically signed by: Raheem Hensley RN 10/22/2024 1:02 PM documented in this encounter Plan of Treatment Upcoming Encounters Date Type Department Care Team (Late st Contact Info) Description 03/05/2025 10:00 AM PDT Office Visit CARDIOLOGY [address] [place] [phone] Melanie Osuna (N.P.), N.P. [address] [place] [phone] documented as of this encounter Visit Diagnoses Not on filedocumented in this encounter Care Teams Web Development Director Relationship Specialty Start Date End Date Wilmer Ludwig), Dilma. [address] [phone] PCP - General Family Practice 01/10/14 documented as of this encounter
--- OUTSIDE RECORDS SUMMARY | 2024-11-29 16:52 | XMS_ITS | Encounter Summary ---
Author Organization [facility] Address [address] [place] [address] Care Team Providers Care Color Expert Name Role Phone Wilmer Ludwig) Richie Primary Care Prov ider Unavailable Encounter Details Date Type Department Care Team (Late st Contact Info) Description 10/23/2024 Anticoagulation DEFAULT [facility] [address] [place] [address] Noah Dill (Pharm.D), PHARM.D. [address] [place] [phone] Social History Tobacco Use Types Packs/Day Years [...] Care Physician: Wilmer Ludwig) S/O: Instructed Anticoagulation Sales Promotion Representative/Embedded Software Developer to call patient to check if patient [...] Lavender A/P: INR: within therapeutic range Instructed trust administrative assistant to give the following instructions: Warfarin Dosing Instructions: 3mg daily (same as 1 and 1/2 tablets daily) Follow up date: 10/29/24 Operation Research Analyst/Embedded Software Developer to confirm patient???s understanding of warfarin instruction [...] date 10/29/24. Electronically signed by PERLITA MARTI Ground Support Agent 10/23/2024 12:17 PM documented in this encounter Plan of Treatment Upcoming Encounters Date Type Department Care Team (Late st Contact Info) Description 03/05/2025 10:00 AM PDT Office Visit CARDIOLOGY [address] [phone] Melanie Osuna (N.P.), N.P. [address] [place] [address] documented as of this encounter Visit Diagnoses Not on filedocumented in this encounter Care Teams Color Expert Relationship Specialty Start Date End Date Wilmer Ludwig)Dilma. [address] [place] [address] PCP - General Family Practice 01/10/14 documented as of this encounter
--- OUTSIDE RECORDS SUMMARY | 2024-11-29 16:52 | XMS_ITS | Encounter Summary ---
Author Organization [facility] Address [address] [place] [address] Care Team Providers Care Busperson Name Role Phone Wilmer Ludwig) Richie Primary Care Prov ider Unavailable Encounter Details Date Type Department Care Team (Late st Contact Info) Description 05/08/2021 Home Care Visit DEFAULT [facility] [address] [address] Social History Tobacco Use Types [...] PDT Office Visit CARDIOLOGY [address] [place] [address] Melanie Osuna (N.P.), N.P. [address] [place] [phone] documented as of this encounter Visit Diagnoses [...] Endurance Description: Physical Therapist and Phyiscal Therapist Ironing Machine Operator to perform ansd instruct a strengthening program. [...] Yes documented in this encounter Care Teams Busperson Relationship Specialty Start Date End Date Wilmer Ludwig), Dilma. [address] [place] [address] PCP - General Family Practice 01/10/14 documented as of this encounter
--- OUTSIDE RECORDS SUMMARY | 2024-11-29 16:52 | XMS_ITS | Encounter Summary ---
Author Organization [facility] Address [address] [place] [address] Care Team Providers Care Laborer Construction Or Leak Gang Name Role Phone Wilmer Ludwig) Richie Primary Care Prov ider Unavailable Encounter Details Date Type Department Care Team (Late st Contact Info) Description 11/27/2024 Anticoagulation DEFAULT [facility] PH[facility]ACY [address] [place] [address] Yisel Hutchinson (Pharm.D), PHARM.D. [address] [place] [address] Social History Tobacco Use Types Packs/Day Years [...] Notes * Yisel Hutchinson (Pharm.D), PHARM.D. - 11/27/2024 3:33 PM PDT Primary Care Physician: Wilmer Ludwig) S/O: Instructed Anticoagulation Infection Control Specialist/Install And Repair Technician to call patient to check if patient [...] bleeding or bruising Upcoming invasive procedures. INR 2.41 11/22/2024 Indications: Atrial Fibrillation (I48.91) INR Low Range: 2 - INR High Range: 3 Warfarin Tab (MG): 2mg Lavender A/P: INR within therapeutic range Instruct carpenter assistant installer to give the following instructions: Warfarin Dosing Instructions: continue 2mg daily exc 1mg Mon/Fri (same as 1 tablet daily exc 1/2 tablet Mon/Mon) Follow up date: 12/06/24 Ethnology Teacher/Install And Repair Technician to confirm patient???s understanding of warfarin instruction and ask to repeatback the instruction. Electronically signed by: YISEL HUTCHINSON PHARMD 11/27/2024 3:35 PM documented in this encounter Nursing Notes * Sourav Amato - 11/27/2024 4:15 PM PDT Spoke with patient Patient reports: [...] current dosing instruction and next INR date 12/06/24 . Electronically signed by SOURAV AMATO Stock Feeder 11/27/2024 4:15 PM documented in this encounter Plan of Treatment Upcoming Encounters Date Type Department Care Team (Late st Contact Info) Description 03/05/2025 10:00 AM PDT Office Visit CARDIOLOGY [address] [phone] Melanie Osuna (N.P.), N.P. [address] [place] [address] documented as of this encounter Visit Diagnoses Not on filedocumented in this encounter Care Teams Laborer Construction Or Leak Gang Relationship Specialty Start Date End Date Wilmer Ludwig M.D., Richie [address] [place] [address] PCP - General Family Practice 01/10/14 documented as of this encounter
--- OUTSIDE RECORDS SUMMARY | 2024-11-29 16:52 | XMS_ITS | Encounter Summary ---
Author Organization [facility] Address [address] [place] [address] Care Team Providers Care Site Surveyor Name Role Phone Wilmer Ludwig) Richie Primary Care Prov ider Unavailable Encounter Details Date Type Department Care Team (Late st Contact Info) Description 05/01/2021 Home Care Visit DEFAULT HOME [address] [address] Social History Tobacco Use Types [...] AM PDT Office Visit CARDIOLOGY [address] [place] [phone] Melanie Osuna (N.P.), N.P. [address] [place] [phone] documented as of this encounter Visit Diagnoses Not on filedocumented in this encounter Care Teams Site Surveyor Relationship Specialty Start Date End Date Wilmer Ludwig M.D., Dilma. [address] [place] [address] PCP - General Family Practice 01/10/14 documented as of this encounter
--- OUTSIDE RECORDS SUMMARY | 2024-11-29 16:52 | XMS_ITS | Encounter Summary ---
Author Organization [facility] Address [address] [place] [place] [address] Care Team Providers Care Junior Systems Administrator Name Role Phone Wilmer Ludwig) Dilma. Primary Care Prov ider Unavailable Encounter Details Date Type Department Care Team (Late st Contact Info) Description 10/12/2022 Refill FAMILY PRACTICE [address] [place] [phone] Wilmer Ludwig), M.D. [address] [place] [address] Medications Social History Tobacco Use Types [...] PDT Office Visit CARDIOLOGY [address] [phone] Melanie Osuna (N.P.), N.P. [address] [place] [phone] documented as of this encounter Visit Diagnoses Diagnosis ATRIAL FIBRILLATION, UNSPECIFIED ATRIAL FIBRILLATION documented in this encounter Care Teams Junior Systems Administrator Relationship Specialty Start Date End Date Wilmer Ludwig), Dilma. [address] [place] [address] PCP - General Family Practice 01/10/14 documented as of this encounter
--- OUTSIDE RECORDS SUMMARY | 2024-11-29 16:52 | XMS_ITS | Encounter Summary ---
Author Organization [facility] Address [address] [facility] [address] [place] [address] Care Team Providers Care Equipment Operator Wage Hand Name Role Phone Wilmer Ludwig) Richie Primary Care Prov ider Unavailable Encounter Details Date Type Department Care Team (Late st Contact Info) Description 05/11/2021 Home Care Visit DEFAULT HOME [address] [address] Social History Tobacco Use Types [...] AM PDT Office Visit CARDIOLOGY [address] [place] [phone] Melanie Osuna (N.P.), N.P. [address] [place] [phone] documented as of this encounter Visit Diagnoses Not on filedocumented in this encounter Care Teams Equipment Operator Wage Hand Relationship Specialty Start Date End Date Wilmer Ludwig M.D., Dilma. [address] [place] [address] PCP - General Family Practice 01/10/14 documented as of this encounter
--- OUTSIDE RECORDS SUMMARY | 2024-11-29 16:52 | XMS_ITS | Encounter Summary ---
Author Organization [facility] Address [address] [place] [place] [address] Care Team Providers Care Greige Goods Marker Name Role Phone Wilmer Ludwig) Richie Primary Care Prov ider Unavailable Encounter Details Date Type Department Care Team (Late st Contact Info) Description 09/25/2024 [facility]ticoagulation [facility] [address] [place] [address] Noah Dill (Pharm.D), PHARM.D. [address] [place] [phone] Social History Tobacco Use Types Packs/Day Years [...] Wilmer Ludwig) Sent: Stable secure message via [employer] S/O: Patient to call for any questions, [...] [place] [phone] Melanie Osuna (N.P.), N.P. [address] [place] [phone] documented as of this encounter Visit Diagnoses Not on filedocumented in this encounter Care Teams Greige Goods Marker Relationship Specialty Start Date End Date Wilmer Ludwig M.D., M.D. [address] [phone] PCP - General Family Practice 01/10/14 documented as of this encounter
--- OUTSIDE RECORDS SUMMARY | 2024-11-29 16:52 | XMS_ITS | Encounter Summary ---
Author Organization [facility] Address [address] [place] [address] Care Team Providers Care Registered Respiratory Technician Name Role Phone Wilmer Ludwig) Richie Primary Care Prov ider Unavailable Encounter Details Date Type Department Care Team (Late st Contact Info) Description 10/22/2024 [facility]ticoagulation [facility] [address] [place] [address] Noah Dill (Pharm.D), PHARM.D. [address] [place] [phone] Social History Tobacco Use Types Packs/Day Years [...] follow up note: Received discharge notification from [facility] pharmacy Pt recently admitted to [facility] (Admit Date: 10/14/2024 and Discharge Date: 10/21/2024) due to ATRIAL FIBRILLATION W RAPID VENTRICULAR RESPONSE likely 2/2 dehydration 2/2 gastroenteritis Patient started on warfarin for Afib INR goal 2-3 Inpatient warfarin dosing history: Per IP: 4/2.5/1/0/0/1mg 10/16-10/21 Per inpatient pharmacist notes on 10/21/24: Inpatient Pharmacy Anticoagulation Discharge Progress Note Saira Belle [phone] Height: Ht Readings from Last 1 Encounters: [...] be determined when lab result available. Call [phone] for all further warfarin dosing and follow [...] day following discharge. Outpatient Anticoagulation Services at [facility] (including [place]) to follow patient upon discharge. Next INR: Patient instructed to go to the nearest [place] facility to draw next INR on 10/22/24. [...] Verbalized Understand. Electronically signed by SOURAV AMATO Patient Care Secretary 10/22/2024 4:08 PM * Sourav Amato - 10/22/2024 3:09 PM PDT Patient called to speak with pharm d but she was talking with another patient at the time Patient stated she did not receive any voicemails form us Pharm d to call patient back Forwarded to Pharm.D to address. Electronically signed by SOURAV AMATO Patient Care Secretary 10/22/2024 3:17 PM documented in this encounter Plan of Treatment Upcoming Encounters Date Type Department Care Team (Late st Contact Info) Description 03/05/2025 10:00 AM PDT Office Visit CARDIOLOGY [address] [phone] Melanie Osuna (N.P.), N.P. [address] [place] [phone] documented as of this encounter Visit Diagnoses Not on filedocumented in this encounter Care Teams Registered Respiratory Technician Relationship Specialty Start Date End Date Wilmer Ludwig), Richie [address] [phone] PCP - General Family Practice 01/10/14 documented as of this encounter
--- OUTSIDE RECORDS SUMMARY | 2024-11-29 16:53 | XMS_ITS | Encounter Summary ---
Author Organization [facility] Address [address] [address] Care Team Providers Care Wildlife Biostation Research Ecologist Name Role Phone Wilmer Ludwig) Richie Primary Care Prov ider Unavailable Encounter Details Date Type Department Care Team (Late st Contact Info) Description 04/29/2021 Home Care Visit DEFAULT HOME [address] [phone] Social History Tobacco Use Types [...] AM PDT Office Visit CARDIOLOGY [address] [place] [phone] Melanie Osuna (N.P.), N.P. [address] [place] [phone] documented as of this encounter Visit Diagnoses Not on filedocumented in this encounter Care Teams Wildlife Biostation Research Ecologist Relationship Specialty Start Date End Date Wilmer Ludwig M.D., Dilma. [address] [place] [address] PCP - General Family Practice 01/10/14 documented as of this encounter
--- OUTSIDE RECORDS SUMMARY | 2024-11-29 16:53 | XMS_ITS | Encounter Summary ---
Author Organization [facility] Address [address] [place] [address] Care Team Providers Care Home School Liaison Officer Name Role Phone Wilmer Ludwig) Richie Primary Care Prov ider Unavailable Encounter Details Date Type Department Care Team ([facility] Contact Info) Description 04/29/2021 Home Care Visit [facility] [address] [phone] Social History Tobacco Use Types [...] PDT Office Visit CARDIOLOGY [address] [phone] Melanie Osuna (N.P.), N.P. [address] [place] [phone] documented as of this encounter Visit Diagnoses Not on filedocumented in this encounter Care Teams Home School Liaison Officer Relationship Specialty Start Date End Date Wilmer Ludwig), Dilma. [address] [place] [phone] PCP - General Family Practice 01/10/14 documented as of this encounter
--- OUTSIDE RECORDS SUMMARY | 2024-11-29 16:53 | XMS_ITS | Encounter Summary ---
Author Organization [facility] Address [address] [place] [address] Care Team Providers Care Director Industrial Name Role Phone Wilmer Ludwig) Richie Primary Care Prov ider Unavailable Encounter Details Date Type Department Care Team (Late st Contact Info) Description 11/05/2024 [facility]ticoagulation [facility] [address] [place] [address] Noah Dill (Pharm.D), PHARM.D. [address] [place] [phone] Social History Tobacco Use Types Packs/Day Years [...] PHARM.D. Message Patient plans to go to [place] on 11/13/24 for a couple of months and wants to go to a lab there.Pls mail out letter to address below and also pls send to [employer]. Thank you! [address] [facility] [phone] Printed outside lab letter for mailing and sent via [employer] Electronically signed by: NOAH DILL PHARMD 11/05/2024 [...] repeat back. Patient [place] go to [place] a couple of months and wants to go to a lab there. Patient requests lab letter mailed and sent to [employer]. Sent PharmD Staff msamando Rivas Operations Research Manager Finance Associate Pharmacist [facility] 11/05/2024 11:24 AM * Noah Dill (Pharm.D), PHARM.D. - 11/05/2024 9:27 AM PDT Primary Care Physician: Wilmer Ludwig) S/O: Instructed Anticoagulation Service pharmacist music industry internship to call patient to check if patient [...] 2mg Lavender A/P: INR slightly supratherapeutic Instruct music industry internship to give the following instructions: One Time Dose: 1mg 11/05 then Warfarin Dosing Instructions: 2mg daily Follow up date: 11/11/24 Finance Associate to confirm patient???s understanding of warfarin instruction and ask to repeat back the instruction. Electronically signed by: NOAH DILL PHARMD 11/05/2024 9:29 AM documented in this encounter Nursing Notes * Mickey Flores - 11/05/2024 11:17 AM PDT Patient calling to go over INR results form draw on 11/04/24 . Messaged Finance Associate: let me see one sec i can take it [phone] Obi Rivas Electronically signed by: MICKEY FLORES 11/05/2024 11:24 AM documented in this encounter Plan of Treatment Upcoming Encounters Date Type Department Care Team (Late st Contact Info) Description 03/05/2025 10:00 AM PDT Office Visit CARDIOLOGY [address] [place] [phone] Melanie Osuna (N.P.), N.P. [address] [place] [phone] documented as of this encounter Visit Diagnoses Not on filedocumented in this encounter Care Teams Director Industrial Relationship Specialty Start Date End Date Wilmer Ludwig), Dilma. [address] [phone] PCP - General Family Practice 01/10/14 documented as of this encounter
--- OUTSIDE RECORDS SUMMARY | 2024-11-29 16:53 | XMS_ITS | Encounter Summary ---
Author Organization [facility] Address [address] [place] [place] [address] Care Team Providers Care Quality Compliance Consultant Name Role Phone Wilmer Ludwig M.D., M.D. Primary Care Prov ider Unavailable Reason for Visit * Reason Onset Date Comments VIRTUAL DERMATOLOGY VISIT 03/11/2024 Encounter Details Date Type Department Care Team (Late st Contact Info) Description 03/11/2024 [facility] [address] [place] [address] Hodan Garcia), M.D. [address] [place] [address] VIRTUAL DERMATOLOGY VISIT Social History [...] cosmetic services, products, and locations. Please visit [email or web address] Any recommended medications have already been pended [...] PDT Office Visit CARDIOLOGY [address] [phone] Melanie Osuna (N.P.), N.P. [address] [place] [address] documented as of this encounter Visit Diagnoses Not on filedocumented in this encounter Care Teams Quality Compliance Consultant Relationship Specialty Start Date End Date Wilmer Ludwig), Dilma. [address] [place] [address] PCP - General Family Practice 01/10/14 documented as of this encounter
--- OUTSIDE RECORDS SUMMARY | 2024-11-29 16:53 | XMS_ITS | Clinical Summary ---
Author Organization [facility] Address [address] [place] [address] Care Team Providers Care Marketing Research Coordinator Name Role Phone Wilmer Ludwig M.D., M.D. Primary Care Prov ider Unavailable Source Comments NOTE: The information displayed by Care Everywhere is extracted from the complete medical record and may not identify all current or past patient conditions.[facility] Allergies Active Allergy Reactions Criticality Noted Date Comments Cefuroxime Axetil Skin Rash and/or Hives Low 06/08/2017 Noted with antibiotics [place] in [place]. [place]ed with antibiotics [place]. Codeine And Opiate Derivatives Skin Rash and/or Hives 07/22/2011 Meperidine Hcl High 08/29/2011 Metronidazole Other 10/20/2024 Nausea, GI upset Hydrochlorothiazide 12/19/2013 Hyponatremia in setting of HCTZ Hyponatremia in setting of HCTZ Meperidine Skin Rash and/or Hives High 08/29/2011 Non-Steroidal Anti-Inflammatory Agents High 02/24/2017 [id number] Heart Failure. Exception to this NSAID intolerance is aspirin 81-325mg daily and topical or ophthalmic nsaids' [id number] Heart Failure. Exception to this NSAID intolerance is aspirin 81-325mg daily and topical or ophthalmic nsaids' Oxycodone-Acetaminophen Skin Rash and/or Hives 07/22/2011 Oxycodone-Aspirin Skin Rash and/or Hives 08/18/2011 Penicillins Class Skin Rash and/or Hives 07/22/2011 Sulfa (Sulfonamide Antibiotics) Skin Rash and/or Hives Low 08/18/2011 Medications Medication Sig Dispensed Refills Start Date End Date Status Latanoprost (XALATAN) 0.005 % Opht DropIndications:B ILAT PRIMARY OPEN ANGLE GLAUCOMA Instill 1 Drop in both eyes daily at bedtime for Glaucoma 10 mL 12 10/05/2023 6 Active Dorzolamide-Timol ol (COSOPT) 22.3-6.8 mg/mL Opht DropIndications:B ILAT PRIMARY OPEN ANGLE GLAUCOMA Instill 1 Drop in both eyes 2 times a day 20 mL 11 10/05/2023 6 Active dilTIAZem (CARDIZEM) 30 mg Oral TabIndications:AT RIAL FIBRILLATION, UNSPECIFIED Take 1 tablet by mouth up to 3 times a day as needed atrial fibrillation episodes 100 tablet 3 05/29/2024 6 Active cloNIDine (CATAPRES-TTS 1) 0.1 mg/24 hr TD Weekly PatchIndications: HTN (HYPERTENSION) Apply 1 Patch to skin every 7 days . Remove old patch before applying the new one 12 Patch 4 06/12/2024 6 Active Atorvastatin (LIPITOR) 10 mg Oral TabIndications:HY PERLIPIDEMIA Take 1 tablet by mouth daily to lower cholesterol and keep arteries open 100 tablet 3 07/24/2024 7 Active Warfarin 2 mg Oral TabIndications:AN TICOAGULATION MONITORING, INR 2.0-3.0 Take by mouth as directed by Anticoagulation clinic 150 tablet 07/24/2024 7 Active dilTIAZem (CARDIZEM CD) 120 mg Oral 24hr SR CapIndications:AT RIAL FIBRILLATION, UNSPECIFIED Take 1 capsule by mouth 2 times a day 200 capsule 2 07/24/2024 7 Active Carvedilol (COREG) 12.5 mg Oral TabIndications:AT RIAL FIBRILLATION W RAPID VENTRICULAR RESPONSE Take 1 tablet by mouth 2 times a day 100 tablet 3 10/21/2024 7 Active Amiodarone (PACERONE) 200 mg Oral TabIndications:AT RIAL FIBRILLATION W RAPID VENTRICULAR RESPONSE Take 2 tablets by mouth 2 times a day for 7 days, THEN 1 tablet daily for 60 days. 100 tablet 3 10/21/2024 Active Active Problems Problem Noted Date Diagnosed Date CUSTODIAL AMIODARONE THERAPY 11/16/2024 SUPRAVENTRICULAR TACHYCARDIA, NONSUSTAINED 10/14 OSTEOARTHRITIS OF RIGHT HIP 08/08/2024 ACQUIRED CEREBRAL ATROPHY 06/20/2023 Overview (06/20/2023): CT Head 05/24/16 OSTEOARTHRITIS OF LEFT FOOT 04/25/2023 ATYPICAL CHEST PAIN 08/26/2022 SHORTNESS OF BREATH 08/26/2022 BILAT OPEN ANGLE GLAUCOMA 08/12/2022 RECURRENT UTI 08/05/2021 ANEMIA 11/06/2020 OSTEOARTHRITIS OF RIGHT FOOT 2020 HX OF UT, UNSPECIFIED TYPE 08/14/2019 NOT CURRENT SMOKER 04/11/2018 [...] 01/04/2013 Overview (01/04/2013): Renal ultrasound 11/02/12 from [place]: 1. Unable to see the origin of the left renal artery due to calcification. There are elevated velocities in the left renal artery suggestion a hemodynamically significant stenosis. If clinically indicated, an angiogram with intent to treat could be considered. 2. Normal ultrasound appearance of the kidneys, bilaterally. Cardiac MRI performed on 11/02/12 in [place]: indication: severe Hypertension with suspected severe concentric [...] artery stenosis. SCREENING COLONOSCOPY 02/29/2012 Overview (02/29/2012): 2011 COLON POLYP 02/29/2012 Overview (03/19/2012): Tubular adenoma [...] Metoprolol changed to carvedilol 10/2012 while in [place] for uncontrolled Hypertension Start hydrochlorothiazide 12.5 mg [...] LACERATION 04/24/2012 07/05/2013 ARTHRITIS OF RIGHT KNEE 03/23/2012 02/12/2016 FAMILY STRESS 03/19/2012 04/15/2015 BLOOD IN STOOL 09/16/2011 03/19/2012 SCREENING FOR COLON CANCER 09/16/2011 0 03/19/2012 DUPUYTRENS CONTRACTURE. 08/18/201104/02 Encounters Date Type Department Care Team Description 11/27/2024 Anticoagulation [facility] [address] [place] [address] Juventino Hutchinson (Pharm.D), PHARM.D. 11/21/2024 Anticoagulation [facility] [address] [place] [address] Noah Dill (Pharm.D), PHARM.D. 11/15/2024 11:40 AM PDT Telephone Appointment Visit FAMILY [facility] [address] [place] [address] Wilmer Ludwig), M.D. ATRIAL FIBRILLATION, UNSPECIFIED (Primary Dx); HTN; HYPERLIPIDEMIA; PREDIABETES; OSTEOPOROSIS; ATHEROSCLEROSIS AORTA; OSTEOARTHRITIS OF LEFT KNEE; SENILE PURPURA; DIASTOLIC HEART FAILURE, CHRONIC (HFPEF); BILAT PRIMARY OPEN ANGLE GLAUCOMA; OSTEOARTHRITIS OF LEFT HIP; HX OF UT, UNSPECIFIED TYPE; CKD STAGE 3A (GFR 45-59); SUPRAVENTRICULAR TACHYCARDIA, NONSUSTAINED; ANTICOAGULATION MONITORING, INR 2.0-3.0; ANEMIA 11/12/2024 Anticoagulation [facility] [place] [address] Juventino Hutchinson (Pharm.D), PHARM.D. 11/06/2024 3:00 PM PDT Office Visit CARDIOLOGY [address] [place] [address] Melanie Osuna (N.P.), N.P. ATRIAL FIBRILLATION, PAROXYSMAL; HTN; HYPERLIPIDEMIA; PRESENCE OF CARDIAC PACEMAKER 11/05/2024 Anticoagulation [facility] [place] [address] Noah Dill (Pharm.D), PHARM.D. 11/04/2024 Telephone [facility] [address] [place] [address] Wilmer Ludwig), M.D. TEST RESULTS 11/01/2024 Call Center Telephon e Encounter [facility] [place] [address] Francheska Lares M.D., MTano. APPOINTMENT REQUEST, ROUTINE ([facility], CARDIOLOGY) 10/30/2024 Anticoagulation [facility] [place] [address] Noah Dill (Pharm.D), PHARM.D. 10/30/2024 Telephone [facility] [address] [place] [address] Tessy Kerr M.D., MMagdalene 10/29/2024 Telephone [facility] [address] Shante Anglin (Pharm.D), PHARM.D. PHARMACY ANTICOAGULATION CLINIC SERVICE 10/26/2024 10:10 AM PDT Telephone Appointment Visit FAMILY PRACTICE [address] [place] [address] Tessy Kerr), MTano. AFTERCARE FOLLOWING HOSPITALIZATION (Primary Dx); ANEMIA; ATRIAL FIBRILLATION W RAPID VENTRICULAR RESPONSE 10/23/2024 Anticoagulation DEFAULT [facility] [address] [place] [phone] Noah Dill (Pharm.D), PHARM.D. 10/22/2024 Transitional Care Mgmnt-Telephone CONTINUING CARE L[facility] DEFAULT [address] [place] [phone] Uche Hensley (R.N.), R.N. HOSPITAL FOLLOW UP (Transitional Care Management / Post Hospital Discharge Call - Continuing Care Services /) 10/22/2024 Anticoagulation DEFAULT [facility] [address] [place] [phone] Noah Dill (Pharm.D), PHARM.D. 10/14/2024 10:54 AM PDT - 10/21/2024 5:11 PM PDT Hospital Encounter [facility] [address] [place] [address] Fariha Hermosillo), MTano. Catalino Shine (Richie), MTano. Eder Farnsworth (D.O.), D.O. Regine Peace (D.O.), D.O. ATRIAL FIBRILLATION W RAPID VENTRICULAR RESPONSE Discharge Disposition: Home or Self Care. 10/14/2024 10:00 AM PDT Office Visit URGENT CARE - [address] [address] [facility] (P.A.), P.A. ABDOMINAL PAIN (Primary Dx) 10/08/2024 10:45 AM PDT Allied Health/Nurse Visit OPHTHALMOLOGY [address] [place] [phone] Genna Choudhary SCREENING 10/08/2024 10:00 AM PDT Allied Health/Nurse Visit OPHTHALMOLOGY [address] [place] [phone] Patti Ortizasha Selina VISUAL FIELD TEST 09/26/2024 Call Center Telephon e Encounter OPHTHALMOLOGY [id number] [place] [phone] Juancarlos Arboleda M.D., M.D. MEMBER INITIATED (MESSAGE CENTER CALL) 09/25/2024 Anticoagulation DEFAULT [facility] [id number] [place] [phone] Noah Dill (Pharm.D), PHARM.D. 09/24/2024 9:40 AM PDT Allied Health/Nurse Visit FAMILY PRACTICE [address] [place] [address] Barby Marti (L.V.N.), L.V.N. 09/11/2024 Anticoagulation DEFAULT [facility] [id number] [place] [phone] Noah Dill (Pharm.D), PHARM.D. 09/11/2024 Telephone [facility]ILY PRACTICE [address] [place] [address] Wilmer Ludwig), M.D. TEST RESULTS 09/10/2024 1:40 PM PDT Allied Health/Nurse Visit [facility]ILY PRACTICE [address] [place] [address] Jane Gu (R.N.), R.N. 09/10/2024 Orders Only COMPLETE CARE [address] [place] [phone] Wilmer Ludwig), MLamarD. ABNL KIDNEY FUNCTION STUDY from Last 3 Months Immunizations Name Administration [...] and over (FLUVIRIN ) (Influenza) 03/10/2015,05/20/2014,04/11/2013 PCV13 ([id number]) (Pneumococ deepali conjugate, 13 valent) 03/10/2015 PPSV23 [...] 10:00 AM PDT Office Visit CARDIOLOGY [address] [place] [address] Melanie Osuna (N.P.), N.P. [address] [place] [address] Health Maintenance Due Date Last Done Comments IMM RSV (75 YRS AND OLDER) ( 1 - 1-dose 75+ series) 2019 IMM COVID-19 (6 MO AND OLDER ) ( - 2023- season) 2024 11/09/2021, 06/09/2021, 08/18/2020, Additional history exists IMM DTAP,TDAP,TD (42 DAYS-12 0 YRS) (5 - Td or Tdap) 08/12/2032 08/12/2022, 08/01/2012, 08/01/2012, Additional history exists IMM PNEUMOCOCCAL Completed 03/10/2015, 07/15/2011 IMM ZOSTER (19 YRS AND OLDER) Completed , 09/25/2018, 08/01/2012 IMM INFLUENZA (6 MO AND OLDER) Completed 0 03/11/2024, 04/14/2023, 04/06/2022, Additional history exists Medical Devices Implanted Type Area Convertible Power Shovel Operator Device Identifier Shelf Expiration Date Model / Serial / Lot Pacemaker Cardiac .75cm 4.45x5.88cm Accolade Mri Latitude Nxt Pacesafe Easyview 2 Chmbr Is - [id number] Implanted:Qt y: 1 on 05/23/2023 by Fanny Jade)Richie Cardiac Implant N/A: Chest BSCI - CARDIAC RHYTHM MGMT [id number] 03/28/2025 [id number] / [id number] / NA Lead Straight Ingevity+ Af Is1 7841 52cm Red - [id number] Implanted:Qt y: 1 on 05/23/2023 by Fanny Jade)Richie Cardiac Implant Right: Ventricle BSCI - CARDIAC RHYTHM MGMT 04/26/2025 [id number] / [id number] / NA Lead Straight Ingevity+ Af Is1 7840 45cm White - [id number] Implanted:Qt y: 1 on 05/23/2023 by Fanny Jade)Richie Cardiac Implant Right: Atrium BSCI - CARDIAC RHYTHM MGMT 04/16/2025 7840 / [id number] / NA Lens Iol +18.5 Sydney Biconvex 13mm 6mm Post Chmbr 1 Pc Foldable Uv Absorb Modif L - [id number] Implanted:Qt y: 1 on 07/17/2014 by Juancarlos Arboleda)Richie Eye Right: Eye [employer] [id number] 04/01/2019 SN60 [id number] / [id number] / Lens Iol +18.5 Sydney Biconvex 13mm 6mm Post Chmbr 1 Pc Foldable Uv Absorb Modif L - [id number] Implanted:Qt y: 1 on 08/12/2014 by Juancarlos Arboleda)Richie Eye Left: Eye [employer] [id number] 10/30/2018 SN60 [id number] / [id number] / Liner Acetabular Altrx Neutral 54mm 36mm Hip - [id number] Implanted:Qt y: 1 on 04/28/2021 by David Palacios M.D., M.D. Orthopedic Left: Hip [employer] [id number] 11/30/2025 [id number] / / [id number] Cup Acetabular 54mm Feura Bush Sector Series Hip - [id number] Implanted:Qt y: 1 on 04/28/2021 by David Palacios)Dilma. Orthopedic Left: Hip [employer] [id number] 11/30/2030 [id number] / / [id number] Stem Fem 160mm 8 06/15 High Offset Taper [place] Hip - [id number] Implanted:Qt y: 1 on 04/28/2021 by David Palacios)Richie Orthopedic Left: Hip [employer] [id number] 01/30/2030 [id number] / / [id number] Head Fem +1.5mm Thk6 Mil 06/15 Taper 36mm Hip Cementless Ceramic Articul/Jose - [id number] Implanted:Qt y: 1 on 04/28/2021 by David Palacios)Dilma. Orthopedic Left: Hip [employer] [id number] 10/30/2025 [id number] / / [id number] Screw Bone 6.5mm 25mm Feura Bush Dome 4 Point Cut Flute Hip Acetabular Cancell Self Tap Hex - [id number] Implanted:Qt y: 1 on 04/28/2021 by David Palacios)Richie Screws/Plate s/Wires Left: Hip [employer] [id number] 03/02/2031 [id number] / / [id number] Procedures Procedure Name Priority Date/Time Associated Diagnosis Comments INR Routine 11/22/2024 INR Routine 11/12/2024 8:34 AM PDT ANTICOAGULATION [...] 11:56 AM PDT ANTICOAGULATION MONITORING, INR 2.0-3.0 from Last 3 Months Results * INR (11/22/2024) Only the most recent of16 resultswithin the time period is included. PT INR 2.41 Comment:[facility] [address] [facility] [phone] BLOOD BLOOD / Unknown 11/22/2024 Boram (Pharm.D) Jasper PHARM.D. COAGULATION * POTASSIUM (11/04/2024 8:41 AM PDT) Only the most recent of5 resultswithin the time period is included. POTASSIUM 4.0 3.5 - 5.1 mEq/L [facility], CLINICAL PATHOLOGY - JEANETTE HUFF Comment: Please review results carefully for any changes to reference ranges (indicated by R superscript). Deployment of new chemistry analyzers is occurring across [facility] through 2026. BLOOD / Unknown 11/04/2024 8 :[address] [facility] - 11/04/2024 3:11 PM PDT [facility] ACCN: [id number] Wilmer Ludwig M.D. SERUM CHEM ISTRY [facility] [address] [place] [address] * CREATININE (10/29/2024 12:10 PM PDT) Only the most recent of11 resultswithin the time period is included. CREATININE 0.87 0.57 - 1.11 mg/dL [facility] Comment: Please review results carefully for any changes to reference ranges (indicated by R superscript). Deployment of new chemistry analyzers is occurring across [facility] through 2026. EGFR, CREATININE-BASED FORMULA (CKD-EPI 2020) 67 >=60 mL/min/BSA [facility] Comment: GFR estimate is by [...] Unknown 10/29/2024 1 2:[address] [facility], [facility] - 10/30/2024 2:29 AM PDT [facility] ACCN: [id number] Tessy Peralta) Usha Quiroz SERUM CH EMISTRY Performing Organization Address City/[facility]/ZIP Co de Phone Number [address] [address] * (ABNORMAL) ELECTROLYTE PANEL (NA, K, CL, CO2) (10/29/2024 12:10 PM PDT) Only the most recent of2 resultswithin the time period is included. [facility] SODIUM 137 136 - 145 mEq/L [facility], [facility] POTASSIUM 3.0(L) 3.5 - 5.1 mEq/L [facility], [facility] CHLORIDE 101 98 - 113 mEq/L [facility], [facility] CO2 27 23 - 31 mEq/L [facility], [facility] Comment: Please review results carefully for any changes to reference ranges (indicated by R superscript). Deployment of new chemistry analyzers is occurring across [facility] through 2026. BLOOD / Unknown 10/29/2024 1 2:[address] [facility], [facility] - 10/30/2024 2:29 AM PDT [facility] ACCN: [id number] Tessy Kerr M.D. SERUM CH EMISTRY Performing Organization Address City/[facility]/ZIP Co de Phone Number [facility] [id number] [place] [phone] * (ABNORMAL) CBC NO DIFFERENTIAL (10/29/2024 12:10 PM PDT) Pathologist [facility] WBC'S AUTO 8.3 4.0 - 11.0 x1000/mcL [facility] RBC, AUTO 3.75 3.70 - 5.20 Mill/mcL [facility], [facility] HGB 10.6(L) 11.5 - 16.0 g/dL [facility], [facility] HCT, AUTO 32.5(L) 35.0 - 47.0 % [facility], [facility] MCV 86.7 81.0 - 99.[address] [facility], [facility] MCH 28.3 25.0 - 35.0 pg/cell [facility], [facility] PATHOLOGY [facility] MCHC 32.6 30.0 - 35.0 g/dL [facility], [facility] RDW, BLOOD 14.6 11.5 - 16.0 % [facility], [facility] PLATELETS, AUTOMATED COUNT 482(H) 130 - 400 x1000/mcL [facility] BLOOD / Unknown 10/29/2024 1 2:[address] [facility], [facility] - 10/30/2024 12:32 AM PDT [facility] ACCN: [id number] Tessy Peralta) Usha Quiroz HEMATOLO GY [facility], [facility] [address] [place] [address] * LIVER FUNCTION PANEL (TBILI, ALT, ALKP) (10/22/2024 1:16 PM PDT) ALT 14 <=54 U/L [facility] ALKALINE PHOSPHATASE 50 <=125 U/L [facility] BILIRUBIN, TOTAL 0.6 <=1.0 mg/dL [facility] BLOOD / Unknown 10/22/2024 1 :16 PM PDT Narrative [facility] - 10/22/2024 7:47 PM PDT [facility] ACCN: [id number] Ashok Batres (P.A.) Umah-Mgborogwu P. A. SERUM CHEMISTRY Performing Organization Address [facility] Co de Phone Number [facility] [address] [place] [address] * BUN (10/22/2024 1:16 PM PDT) Only the most recent of9 resultswithin the time period is included. BUN 9 <=18 mg/dL [facility] BLOOD / Unknown 10/22/2024 1 :16 PM PDT Narrative [facility] - 10/22/2024 7:40 PM PDT [facility] ACCN: [id number] Ashok Tochukwu (P.A.) Umah-Mgborogwu P. A. SERUM CHEMISTRY Performing Organization Address [facility] de Phone Number [facility] [address] [place] [address] * LIPASE (10/22/2024 1:16 PM PDT) Only the most recent of2 resultswithin the time period is included. LIPASE 39 <=58 U/L [facility] BLOOD / Unknown 10/22/2024 1 :16 PM PDT Narrative [facility] - 10/22/2024 7:47 PM PDT [facility] ACCN: [id number] Ashok Tocannamariekwu (P.A.) Umah-Mgborogwu P. A. SERUM CHEMISTRY Performing Organization Address [facility] Co de Phone Number [facility] [address] [place] [address] * (ABNORMAL) CBC W AUTOMATED DIFFERENTIAL (10/22/2024 1:16 PM PDT) Only the most recent of9 resultswithin the time period is included. WBC'S AUTO 10.7 4.0 - 11.0 x1000/mcL [facility] RBC, AUTO 3.75 3.70 - 5.20 Mill/mcL [facility] HGB 10.5(L) 11.5 - 16.0 g/dL [facility] HCT, AUTO 31.4(L) 35.0 - 47.0 % [facility] MCV 83.7 81.0 - 99.0 fL [facility] MCH 28.0 25.0 - 35.0 pg/cell [facility] MCHC 33.4 30.0 - 35.0 g/dL [facility] RDW, BLOOD 14.3 11.5 - 16.0 % [facility] PLATELETS, AUTOMATED COUNT 569(H) 130 - 400 x1000/mcL [facility] BLOOD / Unknown 10/22/2024 1 :16 PM PDT Narrative [facility] - 10/22/2024 7:50 PM PDT [facility] ACCN: [id number] Ashok Batres (P.A.) CareXtend-Mgborogrichardu P. A. HEMATOLOGY Performing Organization Address [facility] de Phone Number [facility] [address] [place] [address] * (ABNORMAL) B-TYPE NATRIURETIC PEPTIDE (BNP) (10/22/2024 1:16 PM PDT) Only the most recent of3 resultswithin the time period is included. B TYPE NATRIURETIC PEPTIDE 820(H) <=99 pg/mL [facility] Comment: Less than 100: Not likely heart failure 100-500: Indeterminate range Greater than 500: Heart failure likely For Indeterminate results, one must consider the following: Baseline BNP value elevated due to stable underlying dysfunction; right ventricular failure present from COR Pulmonale; Acute pulmonary embolism or renal failure. BLOOD / Unknown 10/22/2024 1 :16 PM PDT Narrative [facility] - 10/22/2024 7:27 PM PDT [facility] ACCN: [id number] Ashok Batres (P.A.) [facility]-Mgborogwu P. A. SERUM CHEMISTRY Performing Organization Address [facility] de Phone Number [facility] [address] [place] [address] * (ABNORMAL) WBC AUTO DIFF (10/22/2024 1:16 PM PDT) Only the most recent of9 resultswithin the time period is included. NEUTROPHILS %, AUTOMATED COUNT 79.3 [facility] LYMPHOCYTES %, AUTOMATED COUNT 10.7 [facility] MONOS %, AUTO 6.1 [facility] EOSINOPHILS %, AUTOMATED COUNT 1.6 [facility] BASOPHILS %, AUTOMATED COUNT 0.6 [facility] IMMATURE GRANULOCYTES %, AUTOMATED COUNT 2 [facility] RBC NUCLEATED AUTO COUNT, BLD 0 <=0 % [facility] NEUTROPHILS, ABSOLUTE, AUTOMATED COUNT 8.50(H) 1.80 - 7.70 x1000/mcL [facility] LYMPHOCYTES, AUTOMATED COUNT 1.15 1.00 - 3.60 x1000/mcL [facility] MONOCYTES, AUTOMATED COUNT 0.65 0.10 - 1.00 x1000/mcL [facility] EOSINOPHILS, AUTOMATED COUNT 0.17 0.00 - 0.70 x1000/mcL [facility] BASOPHILS, AUTOMATED COUNT 0.06 0.00 - 0.20 x1000/mcL [facility] IMMATURE GRANULOCYTES, AUTOMATED COUNT 0.18(H) 0.01 - 0.09 x1000/mcL [facility] BLOOD / Unknown 10/22/2024 1 :16 PM PDT Narrative [facility] - 10/22/2024 7:50 PM PDT [facility] ACCN: [id number] Ashok Batres (P.A.) [facility] HEMATOLOGY [facility] [address] [place] [address] * GLUCOSE (10/22/2024 1:16 PM PDT) Only the most recent of2 resultswithin the time period is included. GLUCOSE, RANDOM 107 70 - 140 mg/dL [facility] BLOOD / Unknown 10/22/2024 1 :16 PM PDT Narrative [facility] - 10/22/2024 7:40 PM PDT [facility] ACCN: [id number] Ashok Batres (P.A.) [facility] [place]. ALamar SERUM CHEMISTRY Performing Organization Address [facility] Co de Phone Number [facility] [address] [place] [address] * (ABNORMAL) ELECTROLYTE PANEL (NA, K, CL, CO2, ANION GAP) (10/21/2024 4:37 AM PDT) Only the most recent of13 resultswithin the time period is included. SODIUM 127(L) 135 - 145 mEq/L [facility] POTASSIUM 3.6 3.5 - 5.0 mEq/L [facility] CHLORIDE 96(L) 101 - 111 mEq/L [facility] CO2 22 21 - 31 mEq/L [facility] ANION GAP (NA - (CL + CO2)) 9 3 - 11 mEq/L [facility] BLOOD / Unknown 10/21/2024 4 :37 AM PDT Keyon Peralta) Azael Quiroz SER UM CHEMISTRY Performing Organization Address [facility] de Phone Number [facility] [id number] [place] [id number] * (ABNORMAL) PHOSPHATE (10/21/2024 4:37 AM PDT) Only the most recent of2 resultswithin the time period is included. PHOSPHORUS 2.6(L) 2.7 - 4.5 mg/dL [facility] BLOOD / Unknown 10/21/2024 4 :37 AM PDT Regine Bhatt) Kobi Witt SERUM DIRECT OF REAL ESTATE RY Performing Organization Address [facility] Co de Phone Number [facility] [phone] [place] [address] * MAGNESIUM (10/21/2024 4:37 AM PDT) Only the most recent of9 resultswithin the time period is included. MAGNESIUM 2.3 1.7 - 2.8 mg/dL [facility] Comment: Magnesium results between 4.9 mg/dL and 9.7 mg/dL are not considered critical for patients receiving MgSO4 therapy. BLOOD / Unknown 10/21/2024 4 :37 AM PDT Eder Bhatt) Javad Witt SERUM CHEMISTRY Performing Organization Address [facility] de Phone Number [facility] [address] [place] [address] * (ABNORMAL) GLUCOSE, FASTING (10/21/2024 4:37 AM PDT) Only the most recent of7 resultswithin the time period is included. GLUCOSE, FASTING 117(H) 70 - 99 mg/dL [facility] Comment: A repeatable fasting blood glucose result [...] Unknown 10/21/2024 4 :37 AM PDT Catalino Shine M.D. SERUM CHEMISTR Y Performing Organization Address [facility] de Phone Number [facility] [address] [place] [address] * SODIUM, URINE (10/20/2024 9:59 PM PDT) SODIUM, URINE 56 mEq/L [facility] Comment: To precisely quantify excretion, please collect 24 hour urine. URINE 10/20/2024 9:59 PM PDT Keyon Peralta) Azael Quiroz URI NE CHEMISTRY Performing Organization Address [facility] Co de Phone Number [facility] [address] [place] [address] * OSMOLALITY, URINE (10/20/2024 9:59 PM PDT) OSMOLALITY, URINE 625 50 - 1,200 mOsm/kg [facility] Comment: Reference Range for Urine Osmolality: Random Specimen : 50-1200 mOsm/kg H2O 24 Hr Specimen: Age: 0-1 Month : 50-645 mOsm/kg H2O Age: 1 Month-Adult : 50-900 mOsm/kg H2O URINE 10/20/2024 9:59 PM PDT Keyon Peralta) Azael Quiroz URI NE CHEMISTRY Performing Organization Address [facility]/ZIP Co de Phone Number [facility] [address] [place] [address] * (ABNORMAL) OSMOLALITY, SERUM (10/20/2024 12:07 PM PDT) Pathologist [facility] MEASURED OSMOLALITY 263(L) 280 - 305 mOsm/kg [facility] BLOOD / Unknown 10/20/2024 1 2:07 PM PDT Keyon Peralta) Azael Quiroz SER UM CHEMISTRY Performing Organization Address [facility] Co de Phone Number [facility] [address] [place] [address] * XR CHEST 1 VIEW (10/19/2024 4:34 [...] PDT) STREPTOCOCCUS PNEUMONIAE AG, URINE Negative Negative [facility] Comment: Adults with pneumococcal pneumonia sensitivity 50-80%; specificity 90%. Children with pneumococcal pneumonia sensitivity 80-90%; specificity 60-80%. URINE 10/16/2024 7:37 PM PDT Eder Santoro (Miryam) Javad Witt IMMUNOLOGY [facility] [address] [place] [place] [address] * LEGIONELLA PNEUMOPHILA ANTIGEN, URINE, IMMUNOASSAY (10/16/2024 7:37 PM PDT) LEGIONELLA PNEUMOPHILA AG, URINE, EIA Presumptive Negative Presumptive Negative [facility] Comment: Presumptive positive for the presence of L. pneumophila serogroup 1 antigen in urine, suggesting current or past infection. Please submit a respiratory specimen for LEGIONELLA SPECIES CULTURE [[facility] order code: [id number]]. Urinary Legionella antigen may persist long after active infection has resolved. More conclusive evidence of active infection is obtained from LEGIONELLA SPECIES CULTURE [[facility] order code: [id number]], Results of this assay should be interpreted [...] URINE 10/16/2024 7:37 PM PDT Eder Santoro (D.O.) Javad D.O. OUTSIDE TESTING Performing Organization Address [facility] Co de Phone Number [facility] [address] [place] [address] * SARS-COV-2 (COVID-19), INFLUENZA A + B, MULTIPLEX STACY (10/16/2024 11:45 AM PDT) SARS-COV-2 (COVID-19), QUALITATIVE, STACY Not Detected Not Detected [facility] INFLUENZA VIRUS A, PCR Not Detected Not Detected [facility] INFLUENZA VIRUS B RNA, PCR Not Detected Not Detected [facility] Comment: Positive results do not rule out [...] SWAB 10/16/2024 11:4 5 AM PDT Eder Santoro (D.O.) Javad D.O. VIROLOGY Performing Organization Address City/[facility] Co de Phone Number [facility] [address] [place] [address] * CLOSTRIDIUM DIFFICILE GDH AG, TOXINS A, B W REFLEX TO PCR (10/15/2024 10:11 AM PDT) CLOSTRIDIOIDES (CLOSTRIDIUM) DIFFICILE AG AND TOXINS A+B, STOOL Negative Negative [facility] Comment: A finding of I ndeterminate represents discrepant immunoassay results obtained for GDH (antigen specific to C. difficile) and toxin production. Molecular testing (nucleic acid amplification) will follow to confirm results. STOOL 10/15/2024 10:1 1 AM PDT Eder Bhatt) Javad Witt MICROBIOLOGY Performing Organization Address [facility] Co de Phone Number [facility] [address] [place] [address] * (ABNORMAL) HEPARIN THERAPY, APTT (10/15/2024 8:12 AM PDT) Only the most recent of2 resultswithin the time period is included. APTT 52(L) 68 - 105 Sec [facility] BLOOD / Unknown 10/15/2024 8 :12 AM PDT Anish (R.P.H.) Aniyah HARRIS COAGULATION Performing Organization Address [facility] Co de Phone Number [facility] [address] [place] [address] * (ABNORMAL) UNFRACTIONATED HEPARIN, ANTI FACTOR XA (10/15/2024 8:12 AM PDT) Only the most recent of2 resultswithin the time period is included. HEPARIN, UNFRACTIONATED <0.10(L) 0.30 - 0.70 IU/mL [facility] BLOOD / Unknown 10/15/2024 8 :12 AM PDT Anish (R.P.H.) Aniyah HARRIS COAGULATION Performing Organization Address [facility] Co de Phone Number [facility] [address] [place] [address] * (ABNORMAL) ALBUMIN (10/15/2024 5:57 AM PDT) ALBUMIN 2.4(L) 3.3 - 4.8 g/dL [facility] BLOOD / Unknown 10/15/2024 5 :57 AM PDT Catalino Peralta) Rl Quiroz SERUM CHEMISTR Y Performing Organization Address [facility] Phone Number [facility] [address] [place] [address] * BACTERIAL GI PANEL (SALMONELLA, SHIGELLA/EIEC, CAMPYLOBACTER, SHIGA TOXIN DNA), STOOL, MULTIPLEX PCR (10/14/2024 10:38 PM PDT) SALMONELLA SPECIES DNA, STOOL, QL, PCR Not Detected Not Detected [facility], [facility] SHIGELLA SP+EIEC DNA, STOOL, QL, PCR Not Detected Not Detected [facility], [facility] CAMPYLOBACTER COLI/JEJUNI DNA, STOOL, QL, PCR Not Detected Not Detected [facility] , [facility] SHIGA TOXIN GENES, PCR Not Detected Not Detected [facility] , [facility] Comment: A Not Detected result may [...] 10/14/2024 10:3 8 PM PDT Catalino Peralta) Shine M.D. MICROBIOLOGY Performing Organization Address [facility] Co de Phone Number [facility] [address] [place] [address] * BLOOD CULTURE (10/14/2024 4:14 PM PDT) Only the most recent of2 resultswithin the time period is included. FINAL RESULT No growth at 5 days. [facility] BLOOD / Unknown 10/14/2024 4 :14 PM PDT Catalino Peralta) Rl Quiroz MICROBIOLOGY Performing Organization Address [facility] de Phone Number [facility] [id number] [place] [address] * (ABNORMAL) TROPONIN I, HIGH SENSITIVITY (10/14/2024 3:55 PM PDT) Only the most recent of2 resultswithin the time period is included. TROPONIN I, HIGH SENSITIVITY 24(H) <=12 pg/mL [facility] Comment: Symptom hsTnI (pg/mL) Delta hsTnl Interpretation Duration M F (pg/mL) >=18y/o M <18y/o Any >100 >75 Myocardial Injury >3 hours <=20 <=12 No Myocardial Injury 21-100 13-75 Rpt TnI in 2 hrs.Calc Delta <=5 No UT 6-10 Indeterminate >10 Acute Myocardial Injury *Troponin values may be elevated in clinical conditions other than acute coronary syndrome. BLOOD / Unknown 10/14/2024 3 :55 PM PDT Catalino Peralta) Rl Quiroz IMMUNOLOGY [facility] [address] [place] [address] * CT ABD AND PELVIS NO CONTRAST [...] lumbar spine. Procedure Note Catalino Purdy M.D., M.D. - 10/14/2024 CLINICAL HISTORY: Reason: generalized abdominal pain, history of CKD Ifafter hours, there needs to be MD to MD contact for scheduling. COMPARISON: No previous study available. TECHNIQUE: Study performed per protocol. CT Dose: As required by [place] law, the CTDIvol and DLP radiation dosesassociated [...] CATALINO PURDY on 10/14/2024 3:46 PM Fariha Peralta) Jaimee Quiroz CT * TRANSTHORACIC ECHO (TTE) [...] LACTATE, SER/PLAS 1.0 0.5 - 1.9 mmol/L [facility] BLOOD / Unknown 10/14/2024 2 :04 PM PDT Narrative [facility] - 10/14/2024 2:23 PM PDT Fariha Peralta) Jaimee Quiroz SERUM CHEM ISTRY Performing Organization Address City/[facility]/ZIP Co de Phone Number [facility] [address] [place] [address] * (ABNORMAL) CALCIUM (10/14/2024 2:04 PM PDT) CALCIUM 8.0(L) 8.5 - 10.7 mg/dL [facility] BLOOD / Unknown 10/14/2024 2 :04 PM PDT Fariha Peralta) Jaimee Quiroz SERUM CHEM ISTRY Performing Organization Address [facility] Co de Phone Number [facility] [address] [place] [address] * (ABNORMAL) LACTIC ACID W REFLEX TO REPEAT (10/14/2024 11:06 AM PDT) LACTATE, SER/PLAS 2.3(H) 0.5 - 1.9 mmol/L [facility] BLOOD / Unknown 10/14/2024 1 1:06 AM PDT Fariha Peralta) Jaimee Quiroz SERUM CHEM ISTRY Performing Organization Address [facility] Co de Phone Number [facility] [address] [place] [address] * ALT (10/14/2024 11:06 AM PDT) ALT 15 <=54 U/L [facility] BLOOD / Unknown 10/14/2024 1 1:06 AM PDT Kelly Peralta) Yvan Quiroz SERUM CHEMISTRY Performing Organization Address City/[facility]/ZIP Co de Phone Number [facility] [address] [place] [address] * AST (10/14/2024 11:06 AM PDT) AST 20 <=30 U/L [facility] BLOOD / Unknown 10/14/2024 1 1:06 AM PDT Kelly Peralta) Yvan Quiroz SERUM CHEMISTRY [facility] [address] [place] [address] * ALKALINE PHOSPHATASE (10/14/2024 11:06 AM PDT) ALKALINE PHOSPHATASE 62 <=125 U/L [facility] BLOOD / Unknown 10/14/2024 1 1:06 AM PDT Kelly Peralta) Yvan Quiroz SERUM CHEMISTRY Performing Organization Address City/[facility]/ZIP Co de Phone Number [facility] [address] [place] [address] * (ABNORMAL) BILIRUBIN, DIRECT (10/14/2024 11:06 AM PDT) BILIRUBIN, DIRECT 0.4(H) <=0.2 mg/dL [facility] BLOOD / Unknown 10/14/2024 1 1:06 AM PDT Kelly Peralta) Yvan Quiroz SERUM CHEMISTRY Performing Organization Address City/[facility]/ZIP Co de Phone Number [facility] [address] [place] [address] * (ABNORMAL) BILIRUBIN, TOTAL (10/14/2024 11:06 AM PDT) BILIRUBIN, TOTAL 1.3(H) <=1.0 mg/dL [facility] BLOOD / Unknown 10/14/2024 1 1:06 AM PDT Kelly Peralta) Yvan Quiroz SERUM CHEMISTRY [facility] [address] [place] [address] * (ABNORMAL) APTT (10/14/2024 11:06 AM PDT) APTT 40(H) 25 - 37 Sec [facility] BLOOD / Unknown 10/14/2024 1 1:06 AM PDT Shante (Pharm.D) To DILSHAD.Charbel COAGULATIO N Performing Organization Address [facility] Co de Phone Number [facility] [address] [place] [address] * EKG 12 OR MORE LEADS W INT & RPT (10/14/2024 10:30 AM PDT) VENTRICULAR RATE 178 BPM SCAL EKG INTERFACE ATRIAL RATE 182 BPM SCAL EKG INTERFACE RI INTERVAL 146 ms SCAL EKG INTERFACE QRS [...] 10/17/2024 3:38 PM PDT Ashok Batres (P.A.) Umah-Mgborogwu P. A. CV EKG Performing Organization Address [facility] de Phone Number SCAL EKG INTERFACE * URINALYSIS, DIPSTICK, POCT [...] Range: Negative LEUKOCYTES: Negative Reference Range: Negative LOT#:[id number] Expiration Date:09/30/25 Date/Time: 10/14/2024 10:11 AM Performed by: KENY STOCK LVN [facility] [address] [facility] [address] EDGER AUTOMAT[employer]: [facility] Med Office - Yolanda Prescott D.O. Ashok Batres (P.A.) Bill P. A. POCT * (ABNORMAL) SODIUM AND POTASSIUM (09/10/2024 11:56 AM PDT) SODIUM 136 135 - 145 mEq/L [facility] POTASSIUM 3.4(L) 3.5 - 5.0 mEq/L [facility] BLOOD / Unknown 09/10/2024 1 1:56 AM PDT Narrative [facility] - 09/10/2024 7:45 PM PDT CHRIS ACCN: [id number] Wilmer Peralta) Oziel Quiroz SERUM CHEM ISTRY [facility] [address] [facility] [place] [address] from Last 3 Months Advance Directives * [...] Result Release to patient? Immediate Care Teams Marketing Research Coordinator Relationship Specialty Start Date End Date Wilmer Ludwig), MMagdalene [address] [phone] PCP - General Family Practice 01/10/14
--- OUTSIDE RECORDS SUMMARY | 2024-11-29 16:53 | XMS_ITS | Encounter Summary ---
Author Organization [facility] Address [address] [place] [address] Care Team Providers Care Technical Implementation Lead Name Role Phone Wilmer Ludwig) Richie Primary Care Prov ider Unavailable Encounter Details Date Type Department Care Team (Late st Contact Info) Description 05/01/2021 Home Care Visit DEFAULT [facility] [address] [phone] Social History Tobacco Use Types [...] PDT Office Visit CARDIOLOGY [address] [phone] Melanie Osuna (N.P.), N.P. [address] [place] [phone] documented as of this encounter Visit Diagnoses Not on filedocumented in this encounter Care Teams Technical Implementation Lead Relationship Specialty Start Date End Date Wilmer Ludwig), Dilma. [address] [place] [phone] PCP - General Family Practice 01/10/14 documented as of this encounter
--- OUTSIDE RECORDS SUMMARY | 2024-11-29 16:53 | XMS_ITS | Encounter Summary ---
Author Organization [facility] Address [address] [place] [address] Care Team Providers Care Gold Leaf Layer Name Role Phone Wilmer Ludwig) Richie Primary Care Prov ider Unavailable Encounter Details Date Type Department Care Team (Late st Contact Info) Description 10/30/2024 Anticoagulation DEFAULT [facility] [address] [place] [address] Noah Dill (Pharm.D), PHARM.D. [address] [place] [phone] Social History Tobacco Use Types Packs/Day Years [...] Clinic After Hours Note RE: Saira Belle, [phone] Spoke with patient regarding critical INR. No [...] upcoming invasive procedures Patient Reported: per IP [facility] f/u 10/29/24: Instructed patient to hold warfarin [...] PDT Office Visit CARDIOLOGY [address] [phone] Melanie Osuna (N.P.), N.P. [address] [facility] [place] [phone] documented as of this encounter Visit Diagnoses Not on filedocumented in this encounter Care Teams Gold Leaf Layer Relationship Specialty Start Date End Date Wilmer Ludwig), Dilma. [address] [phone] PCP - General Family Practice 01/10/14 documented as of this encounter
--- OUTSIDE RECORDS SUMMARY | 2024-11-29 16:53 | XMS_ITS | Encounter Summary ---
Author Organization [facility] Address [address] [place] [address] Care Team Providers Care Laboratory Monitor Name Role Phone Wilmer Ludwig) Richie Primary Care Prov ider Unavailable Encounter Details Date Type Department Care Team (Late st Contact Info) Description 04/28/2021 Home Care Visit DEFAULT [facility] [address] [phone] Social History Tobacco Use Types [...] PDT Office Visit CARDIOLOGY [address] [phone] Melanie Osuna (N.P.), N.P. [address] [place] [phone] documented as of this encounter Visit Diagnoses Not on filedocumented in this encounter Care Teams Laboratory Monitor Relationship Specialty Start Date End Date Wilmer Ludwig), Dilma. [address] [place] [phone] PCP - General Family Practice 01/10/14 documented as of this encounter
--- OUTSIDE RECORDS SUMMARY | 2024-11-29 16:53 | XMS_ITS | Encounter Summary ---
Author Organization [facility] Address [address] [place] [place] [address] Care Team Providers Care Solvent Mixer Name Role Phone Wilmer Ludwig) Richie Primary Care Prov ider Unavailable Encounter Details Date Type Department Care Team (Late st Contact Info) Description 05/03/2024 Orders Only SCAL IE E-VISITS ADMIN DEPT [address] [place] [phone] Scal E-Visit, Provider (Richie)Richie [address] [place] [address] VACCINATION FOR SARS-COV-2 Social History Tobacco Use [...] AM PDT Office Visit CARDIOLOGY [address] [place] [address] Melanie Osuna (N.P.), N.P. [address] [place] [address] documented as of this encounter Visit Diagnoses Diagnosis VACCINATION FOR SARS-COV-2 documented in this encounter Care Teams Solvent Mixer Relationship Specialty Start Date End Date Wilmer Ludwig), Dilma. [address] [facility] [place] [address] PCP - General Family Practice 01/10/14 documented as of this encounter
--- OUTSIDE RECORDS SUMMARY | 2024-11-29 16:53 | XMS_ITS | Encounter Summary ---
Author Organization [facility] Address [address] [place] [place] [address] Care Team Providers Care Online Advertising Manager Name Role Phone Wilmer Ludwig) Dilma. Primary Care Prov ider Unavailable Encounter Details Date Type Department Care Team (Late st Contact Info) Description 01/10/2023 Refill FAMILY PRACTICE [address] [place] [phone] Wilmer Ludwig), M.D. [address] [place] [phone] Medications Social History Tobacco Use [...] PDT Office Visit CARDIOLOGY [address] [phone] Melanie Osuna (N.P.), N.P. [address] [place] [address] documented as of this encounter Visit Diagnoses Diagnosis HYPERLIPIDEMIA documented in this encounter Care Teams Online Advertising Manager Relationship Specialty Start Date End Date Wilmer Ludwig)Dilma. [address] [place] [address] PCP - General Family Practice 01/10/14 documented as of this encounter
--- OUTSIDE RECORDS SUMMARY | 2024-11-29 16:53 | XMS_ITS | Encounter Summary ---
Author Organization [facility] Address [address] [address] Care Team Providers Care Bricklayer Apprentice Name Role Phone Wilmer Ludwig) Richie Primary Care Prov ider Unavailable Reason for Visit * Reason Comments APPOINTMENT REQUEST, ROUTINE SCC, CARDIO LOGY Encounter Details Date Type Department Care Team (Late st Contact Info) Description 11/01/2024 Call Center Telephone Encounter CARDIOLOGY [address] [place] [address] Francheska Lares), MMagdalene [address] [place] [address] APPOINTMENT REQUEST, ROUTINE (SCC, CARDIOLOGY) [...] 11/15/2024 11:40 AM Wilmer Ludwig M.D., M.D. [facility] documented in this encounter Plan of Treatment Upcoming Encounters Date Type Department Care Team (Late st Contact Info) Description 03/05/2025 10:00 AM PDT Office Visit CARDIOLOGY [address] [place] [phone] Melanie Osuna (Debi.Bere), N.P. [address] [place] [phone] documented as of this encounter Visit Diagnoses Not on filedocumented in this encounter Care Teams Bricklayer Apprentice Relationship Specialty Start Date End Date Wilmer Ludwig)Richie [address] [phone] PCP - General Family Practice 01/10/14 documented as of this encounter
--- OUTSIDE RECORDS SUMMARY | 2024-11-29 16:53 | XMS_ITS | Encounter Summary ---
Author Organization [facility] Address [address] [place] [address] Care Team Providers Care Obstetric Assistant Name Role Phone Wilmer Ludwig) Dilma. Primary Care Prov ider Unavailable Encounter Details Date Type Department Care Team (Late st Contact Info) Description 12/30/2022 Refill FAMILY PRACTICE [address] [place] [phone] Wilmer Ludwig), M.D. [address] [place] [phone] Medications Social History Tobacco Use [...] PDT Office Visit CARDIOLOGY [address] [phone] Melanie Osuna (N.P.), N.P. [address] [place] [address] documented as of this encounter Visit Diagnoses Diagnosis HTN documented in this encounter Care Teams Obstetric Assistant Relationship Specialty Start Date End Date Wilmer Ludwig)Dilma. [address] [address] PCP - General Family Practice 01/10/14 documented as of this encounter
--- OUTSIDE RECORDS SUMMARY | 2024-11-29 16:53 | XMS_ITS | Encounter Summary ---
Author Organization [facility] Address [address] [place] [address] Care Team Providers Care Pen Rider Name Role Phone Wilmer Ludwig) Dilma. Primary Care Prov ider Unavailable Encounter Details Date Type Department Care Team (Late st Contact Info) Description 12/06/2021 Refill FAMILY PRACTICE [address] [place] [phone] Wilmer Ludwig), M.D. [address] [place] [phone] Medications Social History Tobacco Use Types [...] PDT Office Visit CARDIOLOGY [address] [phone] Melanie Osuna (N.P.), N.P. [address] [place] [address] documented as of this encounter Visit Diagnoses Diagnosis HYPERLIPIDEMIA documented in this encounter Care Teams Pen Rider Relationship Specialty Start Date End Date Wilmer Ludwig), Dilma. [address] [place] [address] PCP - General Family Practice 01/10/14 documented as of this encounter
--- OUTSIDE RECORDS SUMMARY | 2024-11-29 16:53 | XMS_ITS | Clinical Summary ---
Author Organization [facility] Address [address] [place] [address] Care Team Providers Care Automation Consultant Name Role Phone Pcp, No Primary Care Provider Unavailabl e Allergies Active Allergy Reactions Criticality Noted Date Comments Cefuroxime Rash 06/08/2017 Codeine Hives 10/11/2012 Meperidine Hives 10/11/2012 Penicillins Hives 10/11/2012 Oxycodone-Acetaminophen Hives 10/11/2012 Oxycodone Nno-Upbxfdmoe-Ryh Hives 10/12/19 13 Sulfa (Sulfonamide Antibiotics) Hives [...] 0 11/14/2012 Active cloNIDine 0.1 mg/24 hr ([id number]-MNW-2 ) 0.1 mg/24 hr patch 11/13/2018 Active [...] Overview (12/06/2017): Overview: Renal ultrasound 11/02/12 from [place]: 1. Unable to see the origin of the left renal artery due to calcification. There are elevated velocities in the left renal artery suggestion a hemodynamically significant stenosis. If clinically indicated, an angiogram with intent to treat could be considered. 2. Normal ultrasound appearance of the kidneys, bilaterally. Cardiac MRI performed on 11/02/12 in [place]: indication: severe Hypertension with suspected severe concentric [...] Metoprolol changed to carvedilol 10/2012 while in [place] for uncontrolled Hypertension Start hydrochlorothiazide 12.5 mg [...] Health Maintenance Due Date Last Done Comments DEXA/DXA scan for age 65+ 2009 Medicare Wellness for age 65+ 2009 Zoster (shingles) series for age 50+ (2 of 3) 09/26/2012 08/01/2012 Depression screening for age 12+ 03/28/2019 03/28/2018, 03/26/2018, 12/05/2017 RSV vaccine for adults or (1 - 1-dose 75+ series) 2019 BMI (ht and wt on same day) for age 18+ 01/16/2020 01/15/2019, 03/26/2018, 01/11/2018, Additional history exists Tetanus booster 08/01/2022 08/01/2012 COVID-19 vaccine series (2023- season) 2024 Influenza Vaccine (Season Ended) 2025 03/08/2019, 03/03/2017, 03/22/2016, Additional history exists Tdap Completed 08/01/2012 Pneumococcal series for age 50+ Completed 03/10/2015, 07/15/2011 Hepatitis B series for 19+ Aged Out N o longer eligible based on patient's age to complete this topic Care Teams Automation Consultant Relationship Specialty Start Date End Date Pcp, No . PCP - General 01/11/18
--- OUTSIDE RECORDS SUMMARY | 2024-11-29 16:53 | XMS_ITS | Encounter Summary ---
Author Organization [facility] Address [address] [place] [address] Care Team Providers Care Geography Professor Name Role Phone Wilmer Ludwig) Richie Primary Care Prov ider Unavailable Encounter Details Date Type Department Care Team (Late st Contact Info) Description 04/21/2021 Orders Only FAMILY MEDICINE CV19 VACCINE [address] [phone] Scal E-Visit, Provider Fabian)Richie [address] [place] [address] VACCINATION FOR SARS-COV-2 Social History Tobacco Use [...] PDT Office Visit CARDIOLOGY [address] [place] [address] Melanie Osuna (N.P.), N.P. [address] [place] [address] documented as of this encounter Visit Diagnoses Diagnosis VACCINATION FOR SARS-COV-2 documented in this encounter Care Teams Geography Professor Relationship Specialty Start Date End Date Wilmer Ludwig), Richie [address] [place] [address] PCP - General Family Practice 01/10/14 documented as of this encounter
--- OUTSIDE RECORDS SUMMARY | 2024-11-29 16:53 | XMS_ITS | Encounter Summary ---
Author Organization [facility] Address [address] [place] [place] [address] Care Team Providers Care Surveillance Camera Technician Name Role Phone Wilmer Ludwig) Richie Primary Care Prov ider Unavailable Encounter Details Date Type Department Care Team (Late st Contact Info) Description 04/28/2021 Home Care Visit DEFAULT HOME [address] [address] Social History Tobacco Use Types [...] AM PDT Office Visit CARDIOLOGY [address] [place] [phone] Melanie Osuna (N.P.), N.P. [address] [place] [phone] documented as of this encounter Visit Diagnoses Not on filedocumented in this encounter Care Teams Surveillance Camera Technician Relationship Specialty Start Date End Date Wilmer Ludwig M.D., Dilma. [address] [place] [address] PCP - General Family Practice 01/10/14 documented as of this encounter
--- OUTSIDE RECORDS SUMMARY | 2024-11-29 16:53 | XMS_ITS | Encounter Summary ---
Author Organization [facility] Address [address] [place] [place] [address] Care Team Providers Care Subway Car Repairer Name Role Phone Wilmer Ludwig) Richie Primary Care Prov ider Unavailable Encounter Details Date Type Department Care Team (Late st Contact Info) Description 11/21/2024 Anticoagulation DEFAULT ANTICOAG PHARMACY [address] [place] [address] Noah Dill (Pharm.D), PHARM.D. [address] [place] [phone] Social History Tobacco Use Types Packs/Day Years [...] as of this encounter Progress Notes * Juventino Hutchinson (Pharm.D), PHARM.D. - 11/27/2024 2:04 PM PDT No INR result received. Route to asst to verify which lab patient went to and request INR to be faxed. Electronically signed by: Juventino Hutchinson PharmMagdalene Electroencephalograph Technologist Pharmacist 11/27/2024 2:11 PM * Noah DillPharm.D), PHARM.Charbel - 11/21/2024 4:27 PM PDT No INR in process. Will have bookkeeper assistant remind patient to return to lab for INR test TIM. Electronically signed by: NOAH DILL PHARMD 11/21/2024 4:27 PM documented in this encounter Nursing Notes * Sourav Amato - 11/27/2024 2:23 PM PDT Called patient to find out what lab patient went to ER in [facility] Spoke with Dew he will fax over results to us from her visit. Electronically signed by SOURAV AMATO Die Maker Stamping 11/27/2024 2:27 PM * Perlita Marti - 11/22/2024 12:04 PM PDT Lab reminder call x1, patient just went to lab this morning Electronically signed by PERLITA gilmore Die Maker Stamping 11/22/2024 12:04 PM documented in this encounter Plan of Treatment Upcoming Encounters Date Type Department Care Team (Late st Contact Info) Description 03/05/2025 10:00 AM PDT Office Visit CARDIOLOGY [address] [phone] Melanie Osuna (N.P.), N.P. [address] [place] [phone] documented as of this encounter Procedures Procedure Name Priority Date/Time Associated Diagnosis Comments INR Routine 11/22/2024 documented in this encounter Results * INR (11/22/2024) PT INR 2.41 Comment:[facility] [address] [facility] [phone] BLOOD BLOOD / Unknown 11/22/2024 Juventino (Pharm.D) [place] PHARM.DLamar COAGULATION documented in this encounter Visit Diagnoses Not on filedocumented in this encounter Care Teams Subway Car Repairer Relationship Specialty Start Date End Date Wilmer Ludwig), M.D. [address] [place] [phone] PCP - General Family Practice 01/10/14 documented as of this encounter
--- OUTSIDE RECORDS SUMMARY | 2024-11-29 16:53 | XMS_ITS | Encounter Summary ---
Author Organization [facility] Address [address] [place] [place] [address] Care Team Providers Care Roving Tester Laboratory Name Role Phone Wilmer Ludwig) Dilma. Primary Care Prov ider Unavailable Encounter Details Date Type Department Care Team (Late st Contact Info) Description 10/04/2023 Refill FAMILY PRACTICE [address] [place] [address] Wilmer Ludwig), M.D. [address] [place] [address] Medications Social History Tobacco Use [...] PDT Office Visit CARDIOLOGY [address] [phone] Melanie Osuna (N.P.), N.P. [address] [place] [address] documented as of this encounter Visit Diagnoses Diagnosis HTN documented in this encounter Care Teams Roving Tester Laboratory Relationship Specialty Start Date End Date Wilmer Ludwig)Dilma. [address] [place] [address] PCP - General Family Practice 01/10/14 documented as of this encounter
--- OUTSIDE RECORDS SUMMARY | 2024-11-29 16:53 | XMS_ITS | Encounter Summary ---
Author Organization [facility] Address [address] [place] [place] [address] Care Team Providers Care Kitchen Helper Name Role Phone Wilmer Ludwig) Dilma. Primary Care Prov ider Unavailable Reason for Visit * Reason Onset Date Comments TEST RESULTS 11/04/2024 Encounter Details Date Type Department Care Team (Late st Contact Info) Description 11/04/2024 Telephone FAMILY PRACTICE [address] [place] [address] Wilmer Ludwig), M.D. [address] [place] [address] TEST RESULTS Social History Tobacco [...] Message resolved. [facility] [place] [address] [facility] [address] [place] [phone] * Wilmer Ludwig), Richie - 11/04/2024 4:05 PM PDT Please advise pt repeat K level was normal. No further testing needed. documented in this encounter Plan of Treatment Upcoming Encounters Date Type Department Care Team (Late st Contact Info) Description 03/05/2025 10:00 AM PDT Office Visit CARDIOLOGY [address] [place] [phone] Melanie Osuna (N.P.), N.P. [address] [place] [address] documented as of this encounter Visit Diagnoses Not on filedocumented in this encounter Care Teams Kitchen Helper Relationship Specialty Start Date End Date Wilmer Ludwig), Richie [address] [phone] PCP - General [facility] Practice 01/10/14 documented as of this encounter
--- OUTSIDE RECORDS SUMMARY | 2024-11-29 16:53 | XMS_ITS | Encounter Summary ---
Author Organization [facility] Address [address] [place] [address] Care Team Providers Care Banquet Kitchen Supervisor Name Role Phone Wilmer Ludwig) Richie Primary Care Prov ider Unavailable Encounter Details Date Type Department Care Team (Late st Contact Info) Description 11/12/2024 Anticoagulation DEFAULT ANTICOAG PHARMACY [address] [place] [address] Yisel Hutchinson (Pharm.D), PHARM.D. [address] [place] [address] Social History Tobacco Use Types Packs/Day Years [...] Left message on Preferred Phone Number: [phone] -ok lm S/O: INR 3.5 (H) 11/12/2024 [...] PDT Office Visit CARDIOLOGY [address] [phone] Melanie Osuna (N.P.), N.P. [address] [place] [address] documented as of this encounter Visit Diagnoses Not on filedocumented in this encounter Care Teams Banquet Kitchen Supervisor Relationship Specialty Start Date End Date Wilmer Ludwig), M.D. [address] [address] PCP - General Family Practice 01/10/14 documented as of this encounter
[2024-11-29 16:54] VITALS: BP 161/78; PULSE 67; RESP 16; TEMP 35.9; O2SAT 96; BMI 25.2
--- NOTE | 2024-11-29 17:30 | CRLHL7_ITS ---
For Patients: As a result of the Century Cures Act, medical imaging exams and procedure reports are released immediately into your electronic medical record. You may view this report before your referring provider. If you have questions, please contact your health care provider. Indication: Bilateral edema. History of heart failure. Technique: Chest 2 views. Comparison: December 06, 2017. Findings/Impression: Cardiovascular and mediastinum: Heart size is normal. Pacemaker is present. Unremarkable mediastinum. Lungs and pleural spaces: Blunting of the costophrenic angles could represent trace pleural effusions. Lungs otherwise clear. No sign of overt edema or acute CHF. No pneumothorax. Bones and soft tissues: No significant findings. Dictated by Torito Richardson MD @ 11/29/2024 6:22:59 PM (Electronically Signed)
--- NOTE | 2024-11-29 18:09 | ED.GENADULT ---
HPI - General Adult General Date Seen: 11/29/24 Chief complaint: Lower Extremity Swelling Stated complaint: Swollen Feet Time Seen by Provider: 11/29/24 17:02 Source: patient Mode of arrival: ambulatory Limitations: no limitations History of Present Illness HPI narrative: Patient is an 79-year-old female presenting to the emergency department for lower extremity swelling. For the past couple weeks she has been noticing swelling of her ankles and feet. Does not remember this happening before. First noticed it when she got off a plane flying from [place]. Symptoms seem to get better with her legs elevated. Usually they are better overnight and get worse throughout the day when she is up and walking around. Does not have any pain of her legs. Does have history of AFib on warfarin and history of heart failure. Is not on any Lasix or other diuretics. Does have some mild discomfort to her left arm but states this occurred after some heavy lifting. She has no history of blood clots. Denies fevers, chills, chest pain, shortness of breath, lightheadedness, dizziness, weakness, numbness, abdominal pain. No other concerns noted Related Data Home Medications ?Medication ?Instructions ?Recorded ?Confirmed atorvastatin 10 mg tablet 10 mg PO QDAY 05/12/22 11/29/24 clonidine 0.1 mg/24 hr weekly 1 patch transdermal QWEEK 05/12/22 11/29/24 transdermal patch warfarin 2 mg tablet 2 mg PO QMWF 05/12/22 11/29/24 amiodarone 200 mg tablet 200 mg PO 11/22/24 carvedilol 12.5 mg tablet 12.5 mg PO BID 11/22/24 11/29/24 diltiazem HCl 120 mg 120 mg PO BID 11/22/24 11/29/24 capsule,extended release 24 hr nitrofurantoin 1 cap PO DAILY 11/29/24 11/29/24 monohydrate/macrocrystals 100 mg capsule Allergies Allergy/AdvReac Type Severity Reaction Status Date / Time aspirin (From Percodan) Allergy Intermediate really Verified 11/22/24 11:52 sick and pass out oxycodone (From Percodan) Allergy Intermediate really Verified 11/22/24 11:52 sick and pass out Penicillins Allergy Intermediate vomiting Verified 05/12/22 12:17 Sulfa (Sulfonamide Allergy Intermediate vomiting Verified 05/12/22 12:17 Antibiotics) Review of Systems Status of ROS: Reports: 10 or more systems reviewed and unremarkable except as noted in History and below [facility] Medical History Seasonal allergies ?J30.2 - Other seasonal allergic rhinitis (ICD-10) Social History Smoking Status: Never smoker How often do you have a drink containing alcohol: 2-4 times a month AUDIT-C Alcohol total score: 2 Non-prescribed substance use: denies use Exam Narrative: Exam Narrative: Const: Well-nourished, Well-developed, in mild distress Eyes: PERRL, no conjunctival injection, and symmetrical lids HENT: Atraumatic external nose and ears. Moist mucous membranes. Neck: Symmetric, trachea midline, No thyromegaly. CVS: RRR, No murmurs or gallops. Peripheral pulses 2+ and equal in all extremities RESP: Unlabored respiratory effort. Clear to auscultation bilaterally. GI: Nontender/Nondistended, No rebound or guarding. MSK:Extremities w/o deformity, Normal Active ROM, +2 lower extremity pitting edema from the feet to the distal 3rd of lower leg Skin: Warm, Dry. No rashes or lesions. Neuro: Normal Muscle tone, No focal neurological deficits. Psych: Awake, Alert, & Oriented x3. Appropriate mood and affect. Const: Vital Signs, click to edit/add: Vital Signs - 24 hr 11/29/24 16:54 11/29/24 20:00 Temperature 96.7 F L 98.0 F Pulse Rate [Pulse Oximeter] 67 66 Respiratory Rate 16 16 Blood Pressure [Ri ght Upper Arm] 161/78 H 171/68 H Pulse Oximetry 96 96 Oxygen Delivery Me thod Room Air Room Air Course Vital Signs Vital signs: Initial Vital Signs Temperature 96.7 F L 11/29/24 16:54 Temperature Source Temporal Artery Scan 11/29/24 16:54 Pulse Rate 67 11/29/24 16:54 Respiratory Rate 16 11/29/24 16:54 Blood Pressure 161/78 H 11/29/24 16:54 Blood Pressure Mean 105 11/29/24 16:54 Blood Pressure Position Sitting 11/29/24 16:54 Pulse Oximetry 96 11/29/24 16:54 Oxygen Delivery Method Room Air 11/29/24 16:54 Vital Signs Temperature 96.7 F L 11/29/24 16:54 Pulse Rate 67 11/29/24 16:54 Respiratory Rate 16 11/29/24 16:54 Blood Pressure 161/78 H 11/29/24 16:54 Pulse Oximetry 96 11/29/24 16:54 Oxygen Delivery Method Room Air 11/29/24 16:54 Temperature 98.0 F 11/29/24 20:00 Pulse Rate 66 11/29/24 20:00 Respiratory Rate 16 11/29/24 20:00 Blood Pressure 171/68 H 11/29/24 20:00 Pulse Oximetry 96 11/29/24 20:00 Oxygen Delivery Method Room Air 11/29/24 20:00 Medical Decision Making MDM Narrative Medical decision making narrative: Patient is an 79-year-old female presenting for bilateral lower extremity pitting edema. With a history of AFib in CHF this is most likely related to her CHF. She does not wear compression stockings. Will do a chest x-ray, EKG, BNP, BMP, CBC, liver panel, INR, urinalysis. Will look for signs of heart failure, nephrotic syndrome, electrolyte abnormalities, liver dysfunction. Chest x-ray an EKG shows no acute concerning abnormalities. Lab work shows no acute concerning abnormalities. She is doing well at this time. I do believe her peripheral edema is likely related to part of her heart failure. Recommended to her to talk to her primary care provider about this. I do not want start Lasix now as I am unsure when she will be able to repeat labs. She is not showing any signs of heart failure exacerbation. I did recommend compression stockings. Lab Data Labs: Lab Results 11/29/24 11/29/24 11/29/24 Range/Units 17:45 18:31 18:37 WBC 7.43 (4.50-11.00) K/uL RBC 3.94 L (4.00-5.20) m/uL Hgb 10.9 L (12.0-16.0) gm/dL Hct 34.2 (33.0-51.0) % MCV 87 (80-100) fL MCH 28 (26-34) pg MCHC 32 (32-36) gm/dL RDW Coeff of Rayna 14.8 (11.5-15.5) % Plt Count 229 (140-440) K/uL Neut % (Auto) 70.5 (42.0-72.0) % Lymph % (Auto) 19.1 L (20-44) % Payette % (Auto) 6.9 (0.0-11.0) % Eos % (Auto) 2.8 (0.0-7.0) % Baso % (Auto) 0.7 (0.0-3.0) % Neut # (Auto) 5.24 (1.7-7.0) K/uL Lymph # (Auto) 1.40 (0.90-2.90) K/uL Payette # (Auto) 0.50 (0.00-0.90) K/UL Eos # (Auto) 0.21 (0.00-0.50) K/uL Baso # (Auto) 0.05 (0.00-0.30) K/uL Abs Immat Gran (auto) 0.00 (0.00-0.30) K/uL Imm/Tot Granulo (auto) 0.0 % INR 2.30 H (0.91-1.10) Sodium 139 (135-149) mmol/L Potassium 3.7 (3.6-5.1) mmol/L Chloride 103 (96-114) mmol/L Carbon Dioxide 27 (20-32) mmol/L Anion Gap 9 (7-15) mEq/L BUN 16 (7-30) mg/dL Creatinine 1.0 (0.5-1.5) mg/dL Estimated Creat Clear 37.12 Estimated GFR 57 ml/min Glucose 108 (60-115) mg/dL Calcium 9.4 (8.4-10.6) mg/dL Total Bilirubin 0.7 (0.1-1.5) mg/dL Direct Bilirubin 0.4 (0.0-0.5) mg/dL AST 35 (12-35) U/L ALT 29 (4-35) U/L Alkaline Phosphatase 74 (40-150) U/L Total Protein 7.6 (6.0-8.3) g/dL Albumin 4.4 (3.3-5.0) g/dL Urine Color Yellow (Yellow) Urine Appearance Clear (Clear) Urine pH 7.0 (5.0-8.5) Ur Specific Cushman 1.015 (1.000-1.030) Urine Protein Trace A (Negative) Urine Glucose (UA) Negative (Negative) Urine Ketones Negative (Negative) Urine Blood Negative (Negative) Urine Nitrite Negative (Negative) Urine Bilirubin Negative (Negative) Urine Urobilinogen 0.2 (0.2-1.0) Ur Leukocyte Esterase Negative (Negative) Urine RBC 0-2 (0-2) Urine WBC 0-2 (0-5) Ur Squamous Epith Cells Few (None-Few) Urine Bacteria None (None) Imaging Data Chest x-ray: Attestation: I have reviewed the pertinent imaging results. Radiologist's impression: Cardiovascular and mediastinum: Heart size is normal. Pacemaker is present. Unremarkable mediastinum. Lungs and pleural spaces: Blunting of the costophrenic angles could represent trace pleural effusions. Lungs otherwise clear. No sign of overt edema or acute CHF. No pneumothorax. Bones and soft tissues: No significant findings. Dictated by Torito Richardson MD @ 11/29/2024 6:22:59 PM ECG Data Attestation: I personally reviewed and interpreted this ECG as follows: Prior ECG tracings: not available for review Interpretation: Normal sinus rhythm with a rate 67 beats per minute, normal intervals, normal axis, no ST or T-wave abnormalities Discharge Plan Discharge Clinical Impression: Bilateral edema of lower extremity Patient Disposition: Home, Self-Care Condition: Stable Instructions: Leg Edema (ED) Additional Instructions: I believe your lower extremity edema is related to your heart failure and some fluid overload. It is what we call depended edema. I see no signs of severe heart failure at this time. Your provider may want to start you on some water pills. I do recommend using compression stockings and keeping your legs elevated above your heart when possible. Prescriptions: No Action warfarin 2 mg tablet 2 mg PO QMWF atorvastatin 10 mg tablet 10 mg PO QDAY clonidine 0.1 mg/24 hr patch weekly 1 patch transdermal QWEEK nitrofurantoin monohyd/m-cryst 100 mg capsule 1 cap PO DAILY carvedilol 12.5 mg tablet 12.5 mg PO BID amiodarone 200 mg tablet 200 mg PO diltiazem HCl 120 mg capsule,extended release 24hr 120 mg PO BID Follow Up/Referrals: Bossman Garcia MD [Primary Care Provider, Internal Medicine] Stand Alone Forms: TORCH.shth Info Instructions
[2024-11-29 18:43] LABS: Appearance Urine Clear (Clear); Bilirubin Urine Negative (Negative); Blood Urine Negative (Negative); Color Urine Yellow (Yellow); Glucose Urine Negative (Negative); Ketones Urine Negative (Negative); Leukocyte Esterase Urine Negative (Negative); Nitrite Urine Negative (Negative); Protein Urine Trace (Negative); Specific Gravity Urine 1.015 (1.000-1.030); Urobilinogen Urine 0.2 (0.2-1.0)
[2024-11-29 18:49] LABS: RBC Urine 0-2 (0-2); Squamous Epithelial Cell Urine Few (None-Few); WBC Urine 0-2 (0-5)
[2024-11-29 18:50] LABS: Basophils Absolute Auto 0.05 K/uL (0.00-0.30); Basophils Percent Auto 0.7 % (0.0-3.0); Eosinophils Absolute Auto 0.21 K/uL (0.00-0.50); Eosinophils Percent Auto 2.8 % (0.0-7.0); Hematocrit 34.2 % (33.0-51.0); Hemoglobin* 10.9 gm/dL (12.0-16.0); Lymphocytes Percent Auto 19.1 % (20-44); Mean Corpuscular HGB Conc 32 gm/dL (32-36); Mean Corpuscular Hemoglobin 28 pg (26-34); Mean Corpuscular Volume 87 fL (80-100); Monocytes Percent Auto 6.9 % (0.0-11.0); Neutrophils Absolute Auto 5.24 K/uL (1.7-7.0); Neutrophils Percent Auto 70.5 % (42.0-72.0); Platelet Count* 229 K/uL (140-440); RDW Coefficient of Variation % 14.8 % (11.5-15.5); Red Blood Count 3.94 m/uL (4.00-5.20); White Blood Count* 7.43 K/uL (4.50-11.00)
[2024-11-29 19:15] LABS: Prothrombin Time 26.4 Seconds
[2024-11-29 19:29] LABS: Slide Review Reflex No
[2024-11-29 20:00] VITALS: BP 171/68; PULSE 66; RESP 16; TEMP 36.7; O2SAT 96
[2024-11-29 20:13] LABS: Albumin* 4.4 g/dL (3.3-5.0); Chloride* 103 mmol/L (96-114); Sodium* 139 mmol/L (135-149)
[2024-11-29 20:14] LABS: Potassium* 3.7 mmol/L (3.6-5.1)
[2024-11-29 20:16] LABS: Alanine Aminotransferase* 29 U/L (4-35); Alkaline Phosphatase* 74 U/L (40-150); Anion Gap 9 mEq/L (7-15); Aspartate Amino Transferase* 35 U/L (12-35); Bilirubin Direct* 0.4 mg/dL (0.0-0.5); Bilirubin Total* 0.7 mg/dL (0.1-1.5); Blood Urea Nitrogen* 16 mg/dL (7-30); Calcium* 9.4 mg/dL (8.4-10.6); Carbon Dioxide* 27 mmol/L (20-32); Est. Creatinine Clearance* 37.12; Estimated Glomerular Filt Rate 57 ml/min; Glucose* 108 mg/dL (60-115); Total Protein* 7.6 g/dL (6.0-8.3)
[2024-11-29 20:36] LABS: NT Pro B Type NatriureticPept* 1830 pg/mL (See Note)
== END 2024-11-29 21:04 | disposition home or self-care (01) ==
PROVIDERS: Emergency Provider Student in an Organized Health Care Education/Training Program; PCP Internal Medicine
DX: R60.9 Edema, unspecified (principal); M79.602 Pain in left arm; I48.91 Unspecified atrial fibrillation; Z79.01 Long term (current) use of anticoagulants
CPT/HCPCS: 36415; 71046; 80048; 80076; 81001; 83880; 85025; 85610; 99283; 99284

== ENCOUNTER 2024-12-10 10:38 | Emergency (ER) | payer OTHER, SELFPAY ==
--- OUTSIDE RECORDS SUMMARY | 2024-10-26 12:10 | XMS_ITS | Encounter Summary ---
Author Organization [facility] Address [address] [place] [place] [address] Care Team Providers Care Reinforcing Rod Layer Name Role Phone Wilmer Ludwig M.D., M.D. Primary Care Prov ider Unavailable Reason for Visit * Reason Comments HOSPITAL FOLLOW UP Encounter Details Date Type Department Care Team (Latest Contact Info) Description 10/26/2024 10:10 AM PDT Telephone Appointment Visit FAMILY PRACTICE [address] [place] [address] Tessy Kerr), MTano. [address] [place] [address] AFTERCARE FOLLOWING HOSPITALIZATION (Primary Dx); [...] I explained that there is available a [id number] appointment with a provider to render the [...] AM PDT Office Visit CARDIOLOGY [address] [place] [address] Melanie Osuna (N.P.), N.P. [address] [place] [address] documented as of this encounter [...] PDT) CREATININE 0.87 0.57 - 1.11 mg/dL [facility], CLINICAL PATHOLOGY [facility] Comment: Please review results carefully for any changes to reference ranges (indicated by R superscript). Deployment of new chemistry analyzers is occurring across [facility] through 2026. EGFR, CREATININE-BASED FORMULA (CKD-EPI 2020) 67 >=60 mL/min/BSA [facility], CLINICAL PATHOLOGY [facility] Comment: GFR estimate is by the [...] Unknown 10/29/2024 1 2:10 PM PDT Narrative [facility], [facility] - 10/30/2024 2:29 AM PDT CHRIS ACCN: [id number] Tessy Peralta) Usha Quiroz SERUM CH EMISTRY [facility], [facility] [address] [place] [address] * (ABNORMAL) CBC NO DIFFERENTIAL (10/29/2024 12:10 PM PDT) WBC'S AUTO 8.3 4.0 - 11.0 x1000/mcL [facility] RBC, AUTO 3.75 3.70 - 5.20 Mill/mcL [facility] HGB 10.6(L) 11.5 - 16.0 g/dL [facility] HCT, AUTO 32.5(L) 35.0 - 47.0 % [facility] MCV 86.7 81.0 - 99.0 fL [facility] MCH 28.3 25.0 - 35.0 pg/cell [facility] MCHC 32.6 30.0 - 35.0 g/dL [facility] RDW, BLOOD 14.6 11.5 - 16.0 % [facility] PLATELETS, AUTOMATED COUNT 482(H) 130 - 400 x1000/mcL [facility] BLOOD / Unknown 10/29/2024 1 2:10 PM PDT Narrative [facility] - 10/30/2024 12:32 AM PDT [facility] ACCN: [id number] Tessy Perlata) Usha Quiroz HEMATOLO GY Performing Organization Address [facility]/ZIP Co de Phone Number [address] [address] * (ABNORMAL) ELECTROLYTE PANEL (NA, K, CL, CO2) (10/29/2024 12:10 PM PDT) SODIUM 137 136 - 145 mEq/L [facility] POTASSIUM 3.0(L) 3.5 - 5.1 mEq/L [facility] CHLORIDE 101 98 - 113 mEq/L [facility] CO2 27 23 - 31 mEq/L [facility] Comment: Please review results carefully for any changes to reference ranges (indicated by R superscript). Deployment of new chemistry analyzers is occurring across [facility] through 2026. BLOOD / Unknown 10/29/2024 1 2:10 PM PDT Narrative [facility] - 10/30/2024 2:29 AM PDT [facility] ACCN: [id number] Tessy Peralta) Usha Quiroz SERUM CH EMISTRY Performing Organization Address [facility]/ZIP Co de Phone Number [facility] [id number] [place] [id number] documented in this encounter Visit Diagnoses Diagnosis AFTERCARE FOLLOWING HOSPITALIZATION- Primary ANEMIA ATRIAL FIBRILLATION W RAPID VENTRICULAR RESPONSE documented in this encounter Care Teams Reinforcing Rod Layer Relationship Specialty Start Date End Date Wilmer Ludwig), Dilma. [address] [phone] PCP - General Family Practice 01/10/14 documented as of this encounter
--- OUTSIDE RECORDS SUMMARY | 2024-11-06 17:00 | XMS_ITS | Encounter Summary ---
Author Organization [facility] Address [address] [place] [place] [address] Care Team Providers Care Micro Photographer Name Role Phone Wilmer Ludwig) Richie Primary Care Prov ider Unavailable Reason for Visit * Reason Comments HOSPITAL FOLLOW UP Encounter Details Date Type Department Care Team (Late st Contact Info) Description 11/06/2024 3:00 PM PDT Office Visit CARDIOLOGY [address] [place] [phone] Melanie Osuna (N.P.), N.P. [address] [place] [address] ATRIAL FIBRILLATION, PAROXYSMAL; HTN; HYPERLIPIDEMIA; [...] PATIENT'S CHIEF COMPLAINT: Hospital Follow Up Primary Absorber Operator: Dr Francheska Lares (last seen 06/2023) HISTORY OF PRESENT ILLNESS: Saira Belle is a 79 year old female who presents for post hospital cardiac follow up. From Dr Lares Note 06/2023: -April 2012: Hospitalized for syncope, thought to be due to orthostatic hypotension. -October 2012 ([place]): Chest pain in setting of hypertensive urgency. [...] want to do). 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 -06/2023: [...] BP 170/99. Peak stress rate pressure product 84689 is submaximal. Inadequate workload achieved. ECG Findings: [...] cm2/m2. 6. Mild degenerative valvular disease. Mild MR/IN, mild to moderate TR/MR. 7. 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 Exception to this NSAID intolerance is aspirin 81- 325mg daily and topical or ophthalmic nsaids' [id number] Heart Failure. Exception to this NSAID intolerance [...] oral at discharge. Currently in sinus rhythm. [id number] score 5. -continue diltiazem 120mg BID -continue coreg 12.5mg BID -continue Amiodarone 200mg daily - she does not want to stay on this ocean transportation intermediary. She is leaving the state for the next few months, so will continue for now. Wants to revisit in March when she returns to [place]. Discussed lab monitoring with Amio - due in April if she stays on it. -continue warfarin. Discussed switching to Pradaxa and she is agreeable, however, wants to wait until her return in Mar. 2. 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 -Last interrogated 08/2024 with normal function. - continue routine follow up 3. Hypertension. Followed by Nephrology for renal artery stenosis. -Continue antihypertensives. 5. Hyperlipidemia. -On statin. RTC 03/2025 Electronically signed by Melanie Osuna NP Department of Cardiology [facility] 11/06/2024 2:59 PM documented in this encounter Nursing Notes * Jael Ann F - 11/06/2024 2:52 PM PDT Melanie Osuna COMMUNITY MIDWIFE prefer to review patient's medications. PROACTIVE CARE [...] PDT Office Visit CARDIOLOGY [address] [phone] Melanie Osuna (N.P.), N.P. [address] [place] [phone] documented as of this encounter Visit Diagnoses Diagnosis ATRIAL FIBRILLATION, PAROXYSMAL HTN HYPERLIPIDEMIA PRESENCE OF CARDIAC PACEMAKER documented in this encounter Care Teams Micro Photographer Relationship Specialty Start Date End Date Wilmer Ludwig), MTano. [address] [phone] PCP - General Family Practice 01/10/14 documented as of this encounter
--- OUTSIDE RECORDS SUMMARY | 2024-11-15 13:40 | XMS_ITS | Encounter Summary ---
Author Organization [facility] Address [address] [place] [place] [address] Care Team Providers Care Environmental Aide Name Role Phone Wilmer Ludwig) Richie Primary Care Prov ider Unavailable Reason for Visit * Reason Comments FOLLOW UP EXAM Encounter Details Date Type Department Care Team (Late st Contact Info) Description 11/15/2024 11:40 AM PDT Telephone Appointment Visit FAMILY PRACTICE [address] [place] [phone] Wilmer Ludwig), M.D. [address] [place] [address] ATRIAL FIBRILLATION, UNSPECIFIED (Primary Dx); HTN; HYPERLIPIDEMIA; PREDIABETES; OSTEOPOROSIS; ATHEROSCLEROSIS AORTA; OSTEOARTHRITIS OF LEFT KNEE; SENILE PURPURA; DIASTOLIC HEART FAILURE, CHRONIC (HFPEF); BILAT PRIMARY OPEN ANGLE GLAUCOMA; OSTEOARTHRITIS OF LEFT HIP; HX OF AR, UNSPECIFIED TYPE; CKD STAGE 3A (GFR 45-59); SUPRAVENTRICULAR TACHYCARDIA, NONSUSTAINED; ANTICOAGULATION MONITORING, INR 2.0-3.0; ANEMIA Social History Tobacco Use Types Packs/Day Years [...] as of this encounter Progress Notes * Wilmer Ludwig M.D., Richie - 11/15/2024 7:05 AM PDT Chief Complaint Patient presents with FOLLOW UP EXAM Follow up Seen card Melanie Osuna 11/06/2024 Recently [facility] and admitted fast heart rate. Had dual chamber pacemaker placed 05/2023 Currently in [place]. [place]. Staying for most summer. Did discuss with changing to pradaxa when back from [place]. Did talk with coumadin. BP Readings from Last 3 Encounters: 11/06/24 (!) 161/56 10/21/24 129/62 10/14/24 114/61 Wt Readings from Last 3 Encounters: 10/19/24 64.1 kg (141 lb 5 oz) 10/14/24 64.4 kg (142 lb) 08/27/24 64.7 kg (142 lb 10.2 oz) INR 3.5 (H) 11/12/2024 INR 3.1 (H) 11/04/2024 INR 6.5 (AA) 10/29/2024 INR 2.4 (H) 10/22/2024 INR 3.1 (H) 10/21/2024 INR 3.1 (H) 10/20/2024 GLUC 107 10/22/2024 GLUC 131 10/14/2024 GLUC 123 06/02/2023 GLUC FAST 117 (H) 10/21/2024 GLUC FAST 110 (H) 10/20/2024 GLUC FAST 118 (H) 10/19/2024 HGBA1C 5.8 11/09/2023 HGBA1C 5.9 04/25/2023 HGBA1C 5.9 10/26/2022 MICROALB 17.3 07/18/2024 MICROALB 24.8 09/07/2023 MICROALB 31.3 10/26/2022 MICROALBUMIN/CREATININE 16.7 07/18/2024 MICROALBUMIN/CREATININE 21.0 09/07/2023 MICROALBUMIN/CREATININE 81.7 (H) 10/26/2022 PROT/CREAT UR 0.17 08/11/2016 PROT/CREAT UR 0.13 04/13/2016 PROT/CREAT UR 0.08 03/10/2015 CHOL 176 11/09/2023 TRIG 108 11/09/2023 HDL 69 11/09/2023 LDL CALC 88 11/09/2023 LDL 68 04/08/2021 CHOL/HDL 2.6 11/09/2023 TRIGLYCERIDE, NONFASTING 96 04/08/2021 TSH 1.77 10/26/2022 CREAT 0.87 10/29/2024 WBC'S AUTO 8.3 10/29/2024 HGB 10.6 (L) 10/29/2024 HCT AUTO 32.5 (L) 10/29/2024 PLT'S AUTO 482 (H) 10/29/2024 K 4.0 11/04/2024 NA 137 10/29/2024 CL 101 10/29/2024 CO2 27 10/29/2024 Outpatient Medications Marked as Taking for the 11/15/24 encounter (Telephone Appointment Visit) with Wilmer Ludwig), Richie Medication Sig Dispense Refill Carvedilol (COREG) 12.5 [...] 2 times a day 20 mL 11 I48.91 ATRIAL FIBRILLATION, UNSPECIFIED (primary encounter diagnosis) Comment: per cards I10 HTN Comment: elevated recheck 1 week E78.5 HYPERLIPIDEMIA Comment: stable R73.03 PREDIABETES Comment: stable M81.0 OSTEOPOROSIS I70.0 ATHEROSCLEROSIS AORTA Comment: stable on statin M17.12 OSTEOARTHRITIS OF LEFT KNEE D69.2 SENILE PURPURA I50.32 DIASTOLIC HEART FAILURE, CHRONIC (HFPEF) H40.1130 BILAT PRIMARY OPEN ANGLE GLAUCOMA M16.12 OSTEOARTHRITIS OF LEFT HIP I25.2 HX OF AR, UNSPECIFIED TYPE N18.31 CKD STAGE 3A (GFR 45-59) I47.10 SUPRAVENTRICULAR TACHYCARDIA, NONSUSTAINED Z51.81, Z79.01 ANTICOAGULATION MONITORING, INR 2.0-3.0 Comment: per pharmacy D64.9 ANEMIA Comment: stable No orders of the defined types were placed in this encounter. Today, I spent 10 minutes with the patient. This includes total time spent on medical management with and without the patient present. documented in this encounter Plan of Treatment Upcoming Encounters Date Type Department Care Team (Late st Contact Info) Description 03/05/2025 10:00 AM PDT Office Visit CARDIOLOGY [address] [place] [phone] Melanie Osuna (N.P.), N.P. [address] [place] [phone] documented as of this encounter Visit Diagnoses Diagnosis ATRIAL FIBRILLATION, UNSPECIFIED- Primary ATRIAL FIBRILLATION HTN HYPERLIPIDEMIA PREDIABETES OSTEOPOROSIS ATHEROSCLEROSIS AORTA OSTEOARTHRITIS OF LEFT KNEE OSTEOARTHRITIS OF L KNEE SENILE PURPURA DIASTOLIC HEART FAILURE, CHRONIC (HFPEF) DIASTOLIC HEART FAILURE, CHRONIC BILAT PRIMARY OPEN ANGLE GLAUCOMA OSTEOARTHRITIS OF LEFT HIP OSTEOARTHRITIS OF L HIP HX OF AR, UNSPECIFIED TYPE CKD STAGE 3A (GFR 45-59) SUPRAVENTRICULAR TACHYCARDIA, NONSUSTAINED ANTICOAGULATION MONITORING, INR 2.0-3.0 ANEMIA documented in this encounter Care Teams Environmental Aide Relationship Specialty Start Date End Date Wilmer Ludwig), Dilma. [address] [phone] PCP - General Family Practice 01/10/14 documented as of this encounter
--- OUTSIDE RECORDS SUMMARY | 2024-12-10 10:41 | XMS_ITS | Encounter Summary ---
Author Organization [facility] Address [address] [place] [address] Care Team Providers Care Cam Specialist Name Role Phone Wilmer Ludwig) Richie Primary Care Prov ider Unavailable Encounter Details Date Type Department Care Team (Late st Contact Info) Description 10/30/2024 Telephone FAMILY PRACTICE [address] [place] [address] Tessy Kerr), M.D. [address] [place] [address] Social History Tobacco Use Types [...] Left message on voicemail to call back [phone] & encounter left open waiting for patient [...] advise Any worrisome symptoms, follow up with mn or C, such as but not limited [...] AM PDT Office Visit CARDIOLOGY [address] [place] [address] Melanie Osuna (N.P.), N.P. [address] [place] [address] documented as of this encounter Procedures Procedure Name Priority Date/Time Associated Diagnosis Comments POTASSIUM Routine 11/04/2024 8:41 AM PDT HYPOKALEMIA documented in this encounter Results * POTASSIUM (11/04/2024 8:41 AM PDT) POTASSIUM 4.0 3.5 - 5.1 mEq/L [facility], CLINICAL PATHOLOGY [facility] Comment: Please review results carefully for any changes to reference ranges (indicated by R superscript). Deployment of new chemistry analyzers is occurring across through 2026. BLOOD / Unknown 11/04/2024 8 :41 AM PDT Narrative [facility], CLINICAL PATHOLOGY [facility] - 11/04/2024 3:11 PM PDT [facility] ACCN: [id number] Wilmer Ludwig M.D. SERUM CHEM ISTRY [facility], CLINICAL PATHOLOGY [facility] [address] [place] [address] documented in this encounter Visit Diagnoses Diagnosis HYPOKALEMIA documented in this encounter Care Teams Cam Specialist Relationship Specialty Start Date End Date Wilmer Ludwig M.D., Dilma. [address] [address] PCP - General Family Practice 01/10/14 documented as of this encounter
--- OUTSIDE RECORDS SUMMARY | 2024-12-10 10:41 | XMS_ITS | Encounter Summary ---
Author Organization [facility] Address [address] [place] [address] Care Team Providers Care Clinical Supervisor Name Role Phone Wilmer Ludwig) Richie Primary Care Prov ider Unavailable Reason for Visit * Reason Onset Date Comments PHARMACY ANTICOAGULATION CLINIC SERVICE 10/30/19 25 Encounter Details Date Type Department Care Team (Late st Contact Info) Description 10/29/2024 Telephone [facility] PHARMACY MAIN DEFAULT [id number] [place] [address] Shante Anglin (Pharm.D), PHARM.D. [address] [place] [address] PHARMACY ANTICOAGULATION CLINIC SERVICE Social [...] Clinic After Hours Note RE: Saira Belle, [phone] Spoke with patient regarding critical INR. No [...] signed by: Shante Anglin Clinical Pharmacist Specialist [facility] 10/29/2024 7:45 PM documented in this encounter Plan of Treatment Upcoming Encounters Date Type Department Care Team (Late st Contact Info) Description 03/05/2025 10:00 AM PDT Office Visit CARDIOLOGY [address] [address] Melanie Osuna (N.P.), N.P. [address] [place] [phone] documented as of this encounter Visit Diagnoses Not on filedocumented in this encounter Care Teams Clinical Supervisor Relationship Specialty Start Date End Date Wilmer Ludwig), MTano. [address] [address] PCP - General Family Practice 01/10/14 documented as of this encounter
[2024-12-10 10:42] VITALS: BP 155/75; PULSE 61; RESP 16; TEMP 36.1; O2SAT 97; BMI 25.0
--- OUTSIDE RECORDS SUMMARY | 2024-12-10 10:42 | XMS_ITS | Encounter Summary ---
Author Organization [facility] Address [address] [place] [address] Care Team Providers Care Cash Register Balancer Name Role Phone Wilmer Ludwig) Dilma. Primary Care Prov ider Unavailable Encounter Details Date Type Department Care Team (Late st Contact Info) Description 01/10/2023 Refill FAMILY PRACTICE [address] [place] [phone] Wilmer Ludwig), M.D. [address] [place] [address] Medications Social History Tobacco Use [...] PDT Office Visit CARDIOLOGY [address] [place] [phone] Melanie Osuna (N.P.), N.P. [address] [place] [address] documented as of this encounter Visit Diagnoses Diagnosis HYPERLIPIDEMIA documented in this encounter Care Teams Cash Register Balancer Relationship Specialty Start Date End Date Wilmer Ludwig)Dilma. [address] [place] [address] PCP - General Family Practice 01/10/14 documented as of this encounter
--- OUTSIDE RECORDS SUMMARY | 2024-12-10 10:42 | XMS_ITS | Clinical Summary ---
Author Organization [facility] Address [address] [place] [address] Care Team Providers Care Machine Coil Assembler Name Role Phone Pcp, No Primary Care Provider Unavailabl e Allergies Active Allergy Reactions Criticality Noted Date Comments Cefuroxime Rash 06/08/2017 Codeine Hives 10/11/2012 Meperidine Hives 10/11/2012 Penicillins Hives 10/11/2012 Oxycodone-Acetaminophen Hives 10/11/2012 Oxycodone Boo-Yzpklpeds-Lxz Hives 10/12/19 13 Sulfa (Sulfonamide Antibiotics) Hives [...] 0 11/14/2012 Active cloNIDine 0.1 mg/24 hr (PEAQEPLL-XPC-6 ) 0.1 mg/24 hr patch 11/13/2018 Active [...] Overview (12/06/2017): Overview: Renal ultrasound 11/02/12 from [place]: 1. Unable to see the origin of the left renal artery due to calcification. There are elevated velocities in the left renal artery suggestion a hemodynamically significant stenosis. If clinically indicated, an angiogram with intent to treat could be considered. 2. Normal ultrasound appearance of the kidneys, bilaterally. Cardiac MRI performed on 11/02/12 in [place]: indication: severe Hypertension with suspected severe concentric [...] 160.5 cm (5' 3.19) 02/12/2019 9:14 AM C DT Body Mass Index 25.88 02/12/2019 9:14 AM [...] age to complete this topic Care Teams Machine Coil Assembler Relationship Specialty Start Date End Date Pcp, No . PCP - General 01/11/18
--- OUTSIDE RECORDS SUMMARY | 2024-12-10 10:42 | XMS_ITS | Encounter Summary ---
Author Organization [facility] Address [address] [place] [address] Care Team Providers Care Broom Maker Name Role Phone Wilmer Ludwig) Richie Primary Care Prov ider Unavailable Encounter Details Date Type Department Care Team (Late st Contact Info) Description 05/08/2021 Home Care Visit DEFAULT [facility] [address] [phone] Social History Tobacco Use Types [...] PDT Office Visit CARDIOLOGY [address] [place] [address] Melanie Osuna (N.P.), N.P. [address] [place] [phone] documented as of this encounter Visit Diagnoses [...] Endurance Description: Physical Therapist and Phyiscal Therapist Refined Syrup Operator to perform ansd instruct a strengthening [...] Yes documented in this encounter Care Teams Broom Maker Relationship Specialty Start Date End Date Wilmer Ludwig), Dilma. [address] [place] [address] PCP - General Family Practice 01/10/14 documented as of this encounter
--- OUTSIDE RECORDS SUMMARY | 2024-12-10 10:42 | XMS_ITS | Encounter Summary ---
Author Organization [facility] Address [address] [place] [address] Care Team Providers Care Pillar Worker Name Role Phone Wilmer Ludwig) Rihcie Primary Care Prov ider Unavailable Encounter Details Date Type Department Care Team (Late st Contact Info) Description 05/11/2021 Home Care Visit DEFAULT [facility] [address] [phone] Social History Tobacco Use Types [...] Office Visit CARDIOLOGY [address] [place] [phone] Melanie Osuna (N.P.), N.P. [address] [place] [phone] documented as of this encounter Visit Diagnoses [...] Yes documented in this encounter Care Teams Pillar Worker Relationship Specialty Start Date End Date Wilmer Ludwig), Dilma. [address] [place] [address] PCP - General Family Practice 01/10/14 documented as of this encounter
--- OUTSIDE RECORDS SUMMARY | 2024-12-10 10:42 | XMS_ITS | Encounter Summary ---
Author Organization [facility] Address [address] [place] [address] Care Team Providers Care Formulation Scientist Name Role Phone Wilmer Ludwig) Richie Primary Care Prov ider Unavailable Encounter Details Date Type Department Care Team (Late st Contact Info) Description 05/01/2021 Home Care Visit DEFAULT [facility] [address] [phone] Social History Tobacco Use Types [...] PDT Office Visit CARDIOLOGY [address] [phone] Melanie Osuna (N.P.), N.P. [address] [place] [phone] documented as of this encounter Visit Diagnoses Not on filedocumented in this encounter Care Teams Formulation Scientist Relationship Specialty Start Date End Date Wilmer Ludwig), Dilma. [address] [place] [address] PCP - General Family Practice 01/10/14 documented as of this encounter
--- OUTSIDE RECORDS SUMMARY | 2024-12-10 10:42 | XMS_ITS | Encounter Summary ---
Author Organization [facility] Address [address] [facility] [place] [address] Care Team Providers Care Knife Operator Name Role Phone Wilmer Ludwig) Richie Primary Care Prov ider Unavailable Encounter Details Date Type Department Care Team (Late st Contact Info) Description 05/03/2024 Orders Only SCAL IE E-VISITS ADMIN DEPT [address] [place] [address] Scal E-Visit, Provider (Richie)Richie [address] [place] [address] VACCINATION FOR SARS-COV-2 Social History Tobacco Use [...] AM PDT Office Visit CARDIOLOGY [address] [place] [address] Melanie Osuna (N.P.), N.P. [address] [place] [address] documented as of this encounter Visit Diagnoses Diagnosis VACCINATION FOR SARS-COV-2 documented in this encounter Care Teams Knife Operator Relationship Specialty Start Date End Date Wilmer Ludwig), Dilma. [address] [facility] [place] [place] [address] PCP - General Family Practice 01/10/14 documented as of this encounter
--- OUTSIDE RECORDS SUMMARY | 2024-12-10 10:42 | XMS_ITS | Encounter Summary ---
Author Organization [facility] Address [address] [place] [place] [address] Care Team Providers Care Radio Assembler Name Role Phone Wilmer Ludwig) Richie Primary Care Prov ider Unavailable Encounter Details Date Type Department Care Team (Late st Contact Info) Description 04/28/2021 Home Care Visit DEFAULT [facility] [address] [phone] Social History Tobacco Use Types [...] PDT Office Visit CARDIOLOGY [address] [phone] Melanie Osuna (N.P.), N.P. [address] [place] [phone] documented as of this encounter Visit Diagnoses Not on filedocumented in this encounter Care Teams Radio Assembler Relationship Specialty Start Date End Date Wilmer Ludwig), Dilma. [address] [place] [address] PCP - General Family Practice 01/10/14 documented as of this encounter
--- OUTSIDE RECORDS SUMMARY | 2024-12-10 10:42 | XMS_ITS | Encounter Summary ---
Author Organization [facility] Address [address] [place] [address] Care Team Providers Care Programmer Analyst Health It Name Role Phone Wilmer Ludwig) Dilma. Primary Care Prov ider Unavailable Encounter Details Date Type Department Care Team (Late st Contact Info) Description 12/30/2022 Refill FAMILY PRACTICE [address] [place] [phone] Wilmer Ludwig), M.D. [address] [place] [address] Medications Social History Tobacco Use [...] PDT Office Visit CARDIOLOGY [address] [phone] Melanie Osuna (N.P.), N.P. [address] [place] [address] documented as of this encounter Visit Diagnoses Diagnosis HTN documented in this encounter Care Teams Programmer Analyst Health It Relationship Specialty Start Date End Date Wilmer Ludiwg)Dilma. [address] [place] [address] PCP - General Family Practice 01/10/14 documented as of this encounter
--- OUTSIDE RECORDS SUMMARY | 2024-12-10 10:42 | XMS_ITS | Encounter Summary ---
Author Organization [facility] Address [address] [facility] [place] [address] Care Team Providers Care Nurse Informaticist Name Role Phone Wilmer Ludwig) Richie Primary Care Prov ider Unavailable Encounter Details Date Type Department Care Team (Late st Contact Info) Description 04/28/2021 Home Care Visit DEFAULT HOME [address] [phone] Social History Tobacco Use Types [...] AM PDT Office Visit CARDIOLOGY [address] [place] [phone] Melanie Osuna (N.P.), N.P. [address] [place] [phone] documented as of this encounter Visit Diagnoses Not on filedocumented in this encounter Care Teams Nurse Informaticist Relationship Specialty Start Date End Date Wilmer Ludwig M.D., Dilma. [address] [place] [address] PCP - General Family Practice 01/10/14 documented as of this encounter
--- OUTSIDE RECORDS SUMMARY | 2024-12-10 10:42 | XMS_ITS | Encounter Summary ---
Author Organization [facility] Address [address] [facility] [place] [address] Care Team Providers Care Players Assistant Name Role Phone Wilmer Ludwig) Richie Primary Care Prov ider Unavailable Encounter Details Date Type Department Care Team (Late st Contact Info) Description 05/11/2021 Home Care Visit DEFAULT HOME [address] [phone] Social History Tobacco Use Types [...] AM PDT Office Visit CARDIOLOGY [address] [place] [phone] Melanie Osuna (N.P.), N.P. [address] [place] [phone] documented as of this encounter Visit Diagnoses Not on filedocumented in this encounter Care Teams Players Assistant Relationship Specialty Start Date End Date Wilmer Ludwig M.D., Dilma. [address] [place] [address] PCP - General Family Practice 01/10/14 documented as of this encounter
--- OUTSIDE RECORDS SUMMARY | 2024-12-10 10:42 | XMS_ITS | Encounter Summary ---
Author Organization [facility] Address [address] [place] [address] Care Team Providers Care Manufacturing Planner Name Role Phone Wilmer Ludwig) Richie Primary Care Prov ider Unavailable Encounter Details Date Type Department Care Team (Late st Contact Info) Description 05/12/2022 Orders Only SCAL IE E-VISITS ADMIN DEPT [address] [place] [address] Scal E-Visit, Provider (Richie)Richie [address] [place] [address] VACCINATION FOR SARS-COV-2 Social History Tobacco Use [...] AM PDT Office Visit CARDIOLOGY [address] [place] [address] Melanie Osuna (N.P.), N.P. [address] [place] [address] documented as of this encounter Visit Diagnoses Diagnosis VACCINATION FOR SARS-COV-2 documented in this encounter Care Teams Manufacturing Planner Relationship Specialty Start Date End Date Wilmer Ludwig), Dilma. [address] [facility] [place] [address] PCP - General Family Practice 01/10/14 documented as of this encounter
--- OUTSIDE RECORDS SUMMARY | 2024-12-10 10:42 | XMS_ITS | Encounter Summary ---
Author Organization [facility] Address [address] [place] [address] Care Team Providers Care Automobile Taillight Assembler Name Role Phone Wilmer Ludwig M.D., M.D. Primary Care Prov ider Unavailable Reason for Visit * Reason Onset Date Comments VIRTUAL DERMATOLOGY VISIT 03/11/2024 Encounter Details Date Type Department Care Team (Late st Contact Info) Description 03/11/2024 [facility] FAMILY PRACTICE [address] [place] [address] Hodan Garcia), M.D. [address] [place] [address] VIRTUAL DERMATOLOGY VISIT Social History [...] cosmetic services, products, and locations. Please visit [email or web address] Any recommended medications have already been pended [...] PDT Office Visit CARDIOLOGY [address] [phone] Melanie Osuna (N.P.), N.P. [address] [place] [address] documented as of this encounter Visit Diagnoses Not on filedocumented in this encounter Care Teams Automobile Taillight Assembler Relationship Specialty Start Date End Date Wilmer Ludwig), Dilma. [address] [place] [address] PCP - General Family Practice 01/10/14 documented as of this encounter
--- OUTSIDE RECORDS SUMMARY | 2024-12-10 10:42 | XMS_ITS | Encounter Summary ---
Author Organization [facility] Address [address] [place] [address] Care Team Providers Care Superintendent Container Terminal Name Role Phone Wilmer Ludwig) Dilma. Primary Care Prov ider Unavailable Encounter Details Date Type Department Care Team (Late st Contact Info) Description 03/23/2021 Refill FAMILY PRACTICE [address] [place] [phone] Wilmer Ludwig), M.D. [address] [place] [address] Medications Social History Tobacco Use [...] PDT Office Visit CARDIOLOGY [address] [place] [address] Melanie Osuna (N.P.), N.P. [address] [place] [phone] documented as of this encounter Visit Diagnoses Diagnosis HTN (HYPERTENSION) HTN documented in this encounter Care Teams Superintendent Container Terminal Relationship Specialty Start Date End Date Wilmer Ludwig), MTano. [address] [place] [address] PCP - General Family Practice 01/10/14 documented as of this encounter
--- OUTSIDE RECORDS SUMMARY | 2024-12-10 10:42 | XMS_ITS | Encounter Summary ---
Author Organization [facility] Address [address] [place] [address] Care Team Providers Care Cake Batter Mixer Name Role Phone Wilmer Ludwig) Dilma. Primary Care Prov ider Unavailable Encounter Details Date Type Department Care Team (Late st Contact Info) Description 12/06/2021 Refill FAMILY PRACTICE [address] [place] [phone] Wilmer Ludwig), M.D. [address] [place] [address] Medications Social History Tobacco Use Types [...] PDT Office Visit CARDIOLOGY [address] [phone] Melanie Osuna (N.P.), N.P. [address] [place] [address] documented as of this encounter Visit Diagnoses Diagnosis HYPERLIPIDEMIA documented in this encounter Care Teams Cake Batter Mixer Relationship Specialty Start Date End Date Wilmer Ludwig), Dilma. [address] [place] [address] PCP - General Family Practice 01/10/14 documented as of this encounter
--- OUTSIDE RECORDS SUMMARY | 2024-12-10 10:42 | XMS_ITS | Encounter Summary ---
Author Organization [facility] Address [address] [place] [place] [address] Care Team Providers Care Burr Bench Operator Name Role Phone Wilmer Ludwig) Richie Primary Care Prov ider Unavailable Encounter Details Date Type Department Care Team ([facility] Contact Info) Description 04/29/2021 Home Care Visit DEFAULT [facility] [address] [address] Social History Tobacco Use Types [...] PDT Office Visit CARDIOLOGY [address] [phone] Melanie Osuna (N.P.), N.P. [address] [place] [phone] documented as of this encounter Visit Diagnoses Not on filedocumented in this encounter Care Teams Burr Bench Operator Relationship Specialty Start Date End Date Wilmer Ludwig), Dilma. [address] [place] [address] PCP - General Family Practice 01/10/14 documented as of this encounter
--- OUTSIDE RECORDS SUMMARY | 2024-12-10 10:42 | XMS_ITS | Encounter Summary ---
Author Organization [facility] Address [address] [place] [place] [address] Care Team Providers Care Welding Specialist Name Role Phone Wilmer Luwdig) Richie Primary Care Prov ider Unavailable Encounter Details Date Type Department Care Team (Late st Contact Info) Description 04/21/2021 Orders Only FAMILY MEDICINE CV19 VACCINE [address] [place] [address] Scal E-Visit, Provider Fabian)Richie [address] [place] [address] VACCINATION FOR SARS-COV-2 Social History Tobacco Use [...] PDT Office Visit CARDIOLOGY [address] [place] [address] Melanie Osuna (N.P.), N.P. [address] [place] [address] documented as of this encounter Visit Diagnoses Diagnosis VACCINATION FOR SARS-COV-2 documented in this encounter Care Teams Welding Specialist Relationship Specialty Start Date End Date Wilmer Ludwig), Richie [address] [place] [address] PCP - General Family Practice 01/10/14 documented as of this encounter
--- OUTSIDE RECORDS SUMMARY | 2024-12-10 10:42 | XMS_ITS | Encounter Summary ---
Author Organization [facility] Address [address] [facility] [place] [address] Care Team Providers Care Bonsai Culturist Name Role Phone Wilmer Ludwig) Richie Primary Care Prov ider Unavailable Encounter Details Date Type Department Care Team (Late st Contact Info) Description 05/01/2021 Home Care Visit DEFAULT HOME [address] [address] Social History Tobacco Use [...] AM PDT Office Visit CARDIOLOGY [address] [place] [phone] Melanie Osuna (N.P.), N.P. [address] [place] [phone] documented as of this encounter Visit Diagnoses Not on filedocumented in this encounter Care Teams Bonsai Culturist Relationship Specialty Start Date End Date Wilmer Ludwig M.D., Dilma. [address] [place] [address] PCP - General Family Practice 01/10/14 documented as of this encounter
--- OUTSIDE RECORDS SUMMARY | 2024-12-10 10:42 | XMS_ITS | Encounter Summary ---
Author Organization [facility] Address [address] [place] [address] Care Team Providers Care Director Of Career Resources Name Role Phone Wilmer Ludwig) Dilma. Primary Care Prov ider Unavailable Encounter Details Date Type Department Care Team (Late st Contact Info) Description 10/12/2022 Refill FAMILY PRACTICE [address] [place] [phone] Wilmer Ludwig), M.D. [address] [place] [address] Medications Social History Tobacco Use Types [...] PDT Office Visit CARDIOLOGY [address] [phone] Melanie Osuna (N.P.), N.P. [address] [place] [phone] documented as of this encounter Visit Diagnoses Diagnosis ATRIAL FIBRILLATION, UNSPECIFIED ATRIAL FIBRILLATION documented in this encounter Care Teams Director Of Career Resources Relationship Specialty Start Date End Date Wilmer Ludwig), Dilma. [address] [place] [address] PCP - General Family Practice 01/10/14 documented as of this encounter
--- OUTSIDE RECORDS SUMMARY | 2024-12-10 10:42 | XMS_ITS | Encounter Summary ---
Author Organization [facility] Address [address] [facility] [place] [address] Care Team Providers Care Grab Operator Name Role Phone Wilmer Ludwig) Richie Primary Care Prov ider Unavailable Encounter Details Date Type Department Care Team (Late st Contact Info) Description 05/04/2021 Home Care Visit DEFAULT HOME [address] [address] Social History Tobacco Use Types [...] AM PDT Office Visit CARDIOLOGY [address] [place] [phone] Melanie Osuna (N.P.), N.P. [address] [place] [phone] documented as of this encounter Visit Diagnoses Not on filedocumented in this encounter Care Teams Grab Operator Relationship Specialty Start Date End Date Wilmer Ludwig M.D., Dilma. [address] [place] [address] PCP - General Family Practice 01/10/14 documented as of this encounter
--- OUTSIDE RECORDS SUMMARY | 2024-12-10 10:42 | XMS_ITS | Encounter Summary ---
Author Organization [facility] Address [address] [place] [address] Care Team Providers Care Lodging House Keeper Name Role Phone Wilmer Ludwig) Richie Primary Care Prov ider Unavailable Encounter Details Date Type Department Care Team (Late st Contact Info) Description 11/27/2024 Anticoagulation [facility] [address] [place] [address] Juventino Hutchinson (Pharm.D), PHARM.D. [address] [place] [phone] Social History Tobacco Use Types Packs/Day Years [...] Notes * Noah Dill (Pharm.D), PHARM.D. - 12/06/2024 4:36 PM PDT No INR in process. Will have doctor's assistant remind patient to return to lab for INR test TIM. Electronically signed by: NOAH DILL PHARMFamilia 12/06/2024 4:36 PM * Juventino HutchinsonPharm.D), PHARMMagdalene - 11/27/2024 3:33 PM PDT Primary Care Physician: Wilmer Ludwig) S/O: Instructed Anticoagulation Furnace Packer/Chief Building Inspector to call patient to check if patient [...] Lavender A/P: INR within therapeutic range Instruct doctor's assistant to give the following instructions: Warfarin Dosing Instructions: continue 2mg daily exc 1mg Mon/Fri (same as 1 tablet daily exc 1/2 tablet Mon/Fri) Follow up date: 12/06/24 Parking Regulation Enforcement Officer/Chief Building Inspector to confirm patient???s understanding of warfarin instruction and ask to repeatback the instruction. Electronically signed by: JUVENTINO HUTCHINSON PHARMD 11/27/2024 3:35 PM documented in this encounter Nursing Notes * Sourav Amato - 12/09/2024 12:08 PM PDT Lab reminder call x1, [phone] Patient states She will go get one done Electronically signed by Sourav Amato Starch Factory Laborer 12/09/2024 12:08 PM * Sourav Amato - 11/27/2024 4:15 PM [...] 12/06/24 . Electronically signed by SOURAV AMATO Starch Factory Laborer 11/27/2024 4:15 PM documented in this encounter Plan of Treatment Upcoming Encounters Date Type Department Care Team (Late st Contact Info) Description 03/05/2025 10:00 AM PDT Office Visit CARDIOLOGY [address] [phone] Melanie Osuna (N.P.), N.P. [address] [place] [phone] documented as of this encounter Visit Diagnoses Not on filedocumented in this encounter Care Teams Lodging House Keeper Relationship Specialty Start Date End Date Wilmer Ludwig), MTano. [address] [place] [address] PCP - General Family Practice 01/10/14 documented as of this encounter
--- OUTSIDE RECORDS SUMMARY | 2024-12-10 10:42 | XMS_ITS | Encounter Summary ---
Author Organization [facility] Address [address] [place] [address] Care Team Providers Care Furniture Assembly Supervisor Name Role Phone Wilmer Ludwig) Dilma. Primary Care Prov ider Unavailable Encounter Details Date Type Department Care Team (Late st Contact Info) Description 10/04/2023 Refill FAMILY PRACTICE [address] [place] [phone] Wilmer Ludwig), MLamarD. [address] [place] [address] Medications Social History Tobacco Use [...] PDT Office Visit CARDIOLOGY [address] [address] Melanie Osuna (N.P.), N.P. [address] [place] [address] documented as of this encounter Visit Diagnoses Diagnosis HTN documented in this encounter Care Teams Furniture Assembly Supervisor Relationship Specialty Start Date End Date Wilmer Ludwig)Dilma. [address] [place] [address] PCP - General Family Practice 01/10/14 documented as of this encounter
--- OUTSIDE RECORDS SUMMARY | 2024-12-10 10:42 | XMS_ITS | Encounter Summary ---
Author Organization [facility] Address [address] [place] [address] Care Team Providers Care Fiction And Nonfiction Writer Prose Name Role Phone Wilmer Ludwig) Richie Primary Care Prov ider Unavailable Encounter Details Date Type Department Care Team (Late st Contact Info) Description 05/08/2021 Home Care Visit DEFAULT HOME [address] [phone] Social History Tobacco Use Types [...] AM PDT Office Visit CARDIOLOGY [address] [place] [phone] Melanie Osuna (N.P.), N.P. [address] [place] [phone] documented as of this encounter Visit Diagnoses Not on filedocumented in this encounter Care Teams Fiction And Nonfiction Writer Prose Relationship Specialty Start Date End Date Wilmer Ludwig M.D., Dilma. [address] [place] [address] PCP - General Family Practice 01/10/14 documented as of this encounter
--- OUTSIDE RECORDS SUMMARY | 2024-12-10 10:42 | XMS_ITS | Encounter Summary ---
Author Organization [facility] Address [address] [facility] [place] [address] Care Team Providers Care Sheet Sewer Name Role Phone Wilmer Ludwig) Richie Primary Care Prov ider Unavailable Encounter Details Date Type Department Care Team (Late st Contact Info) Description 04/29/2021 Home Care Visit DEFAULT HOME [address] [phone] Social History Tobacco Use Types [...] AM PDT Office Visit CARDIOLOGY [address] [place] [phone] Melanie Osuna (N.P.), N.P. [address] [place] [phone] documented as of this encounter Visit Diagnoses Not on filedocumented in this encounter Care Teams Sheet Sewer Relationship Specialty Start Date End Date Wilmer Ludwig M.D., Dilma. [address] [place] [address] PCP - General Family Practice 01/10/14 documented as of this encounter
--- OUTSIDE RECORDS SUMMARY | 2024-12-10 10:42 | XMS_ITS | Encounter Summary ---
Author Organization [facility] Address [address] [place] [address] Care Team Providers Care Moth Proofer Name Role Phone Wilmer Ludwig) Richie Primary Care Prov ider Unavailable Encounter Details Date Type Department Care Team ([facility] Contact Info) Description 05/04/2021 Home Care Visit DEFAULT [facility] [address] [phone] Social History Tobacco Use [...] PDT Office Visit CARDIOLOGY [address] [phone] Melanie Osuna (N.P.), N.P. [address] [place] [phone] documented as of this encounter Visit Diagnoses Not on filedocumented in this encounter Care Teams Moth Proofer Relationship Specialty Start Date End Date Wilmer Ludwig), Dilma. [address] [place] [phone] PCP - General Family Practice 01/10/14 documented as of this encounter
--- OUTSIDE RECORDS SUMMARY | 2024-12-10 10:43 | XMS_ITS | Encounter Summary ---
Author Organization [facility] Address [address] [place] [address] Care Team Providers Care Crisis Specialist Name Role Phone Wilmer Ludwig) Richie Primary Care Prov ider Unavailable Encounter Details Date Type Department Care Team (Late st Contact Info) Description 11/05/2024 Anticoagulation DEFAULT [facility] [address] [place] [address] Noah Dill (Pharm.D), PHARM.D. [address] [place] [phone] Social History Tobacco Use Types Packs/Day Years [...] PHARM.D. Message Patient plans to go to [place] on 11/13/24 for a couple of months and wants to go to a lab there.Pls mail out letter to address below and also pls send to [employer]. Thank you! [id number] [facility] [phone] Printed outside lab letter for mailing and sent via [employer] Electronically signed by: NOAH DILL PHARMD 11/05/2024 [...] repeat back. [place] and wants to go to a lab there. Patient requests lab letter mailed and sent to [employer]. Sent PharmD Staff msamando Rivas System Dispatcher [employer] Pharmacist [facility] 11/05/2024 11:24 AM * Noah Dill (Pharm.D), PHARM.D. - 11/05/2024 9:27 AM PDT Primary Care Physician: Wilmer Ludwig) S/O: Instructed Anticoagulation Service pharmacist dental intern to call patient to check if [...] 2mg Lavender A/P: INR slightly supratherapeutic Instruct dental intern to give the following instructions: One Time Dose: 1mg 11/05 then Warfarin Dosing Instructions: 2mg daily Follow up date: 11/11/24 [employer] to confirm patient???s understanding of warfarin instruction and ask to repeat back the instruction. Electronically signed by: NOAH DILL PHARMD 11/05/2024 9:29 AM documented in this encounter Nursing Notes * Mickey Flores - 11/05/2024 11:17 AM PDT Patient calling to go over INR results form draw on 11/04/24 . Messaged [employer]: let me see one sec i can take it [phone] Obi Rivas Electronically signed by: MICKEY FLORES 11/05/2024 11:24 AM documented in this encounter Plan of Treatment Upcoming Encounters Date Type Department Care Team (Late st Contact Info) Description 03/05/2025 10:00 AM PDT Office Visit CARDIOLOGY [address] [place] [phone] Melanie Osuna (N.P.), N.P. [address] [place] [phone] documented as of this encounter Visit Diagnoses Not on filedocumented in this encounter Care Teams Crisis Specialist Relationship Specialty Start Date End Date Wilmer Ludwig), Dilma. [address] [phone] PCP - General Family Practice 01/10/14 documented as of this encounter
--- OUTSIDE RECORDS SUMMARY | 2024-12-10 10:43 | XMS_ITS | Encounter Summary ---
Author Organization [facility] Address [address] [place] [address] Care Team Providers Care Swim Coach Name Role Phone Wilmer Ludwig) Richie Primary Care Prov ider Unavailable Reason for Visit * Reason Comments APPOINTMENT REQUEST, ROUTINE SCC, CARDIO LOGY Encounter Details Date Type Department Care Team (Late st Contact Info) Description 11/01/2024 Call Center Telephone Encounter CARDIOLOGY [address] [place] [address] Francheska Lares), MMagdalene [address] [place] [address] APPOINTMENT REQUEST, ROUTINE (SCC, CARDIOLOGY) [...] Wilmer Ludwig M.D., M.D. [facility] documented in this encounter Plan of Treatment Upcoming Encounters Date Type Department Care Team (Late st Contact Info) Description 03/05/2025 10:00 AM PDT Office Visit CARDIOLOGY [address] [place] [phone] Melanie Osuna (Debi.Bere), N.P. [address] [place] [phone] documented as of this encounter Visit Diagnoses Not on filedocumented in this encounter Care Teams Swim Coach Relationship Specialty Start Date End Date Wilmer Ludwig)Richie [address] [phone] PCP - General Family Practice 01/10/14 documented as of this encounter
--- OUTSIDE RECORDS SUMMARY | 2024-12-10 10:43 | XMS_ITS | Clinical Summary ---
Author Organization [facility] Address [address] [place] [address] Care Team Providers Care Box Machine Operator Name Role Phone Wilmer Ludwig M.D., M.D. Primary Care Prov ider Unavailable Source Comments NOTE: The information displayed by Care Everywhere is extracted from the complete medical record and may not identify all current or past patient conditions.[facility] Allergies Active Allergy Reactions Criticality Noted Date Comments Cefuroxime Axetil Skin Rash and/or Hives Low 06/08/2017 Noted with antibiotics given in [place]. Noted with antibiotics given in [place]. Codeine And Opiate Derivatives Skin Rash and/or Hives 07/22/2011 Meperidine Hcl High 08/29/2011 Metronidazole Other 10/20/2024 Nausea, GI upset Hydrochlorothiazide 12/19/2013 Hyponatremia in setting of HCTZ Hyponatremia in setting of HCTZ Meperidine Skin Rash and/or Hives High 08/29/2011 Non-Steroidal Anti-Inflammatory Agents High 02/24/2017 [id number] Heart Failure. Exception to this NSAID intolerance is aspirin 81-325mg daily and topical or ophthalmic nsaids' [id number] Heart Failure. Exception to this NSAID intolerance [...] the new one 12 Patch 4 4 025 Active Atorvastatin (LIPITOR) 10 mg Oral TabIndications:H YPERLIPIDEMIA Take 1 tablet by mouth daily to lower cholesterol and keep arteries open 100 tablet 3 5 026 Active Warfarin 2 mg Oral TabIndications:A NTICOAGULATION [...] times a day 100 tablet 3 5 026 Active Amiodarone (PACERONE) 200 mg Oral TabIndications:A TRIAL FIBRILLATION W RAPID VENTRICULAR RESPONSE Take 2 tablets by mouth 2 times a day for 7 days, THEN 1 tablet daily for 60 days. 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 Unable to see the origin of the left renal artery due to calcification. There are elevated velocities in the left renal artery suggestion a hemodynamically significant stenosis. If clinically indicated, an angiogram with intent to treat could be considered. 2. Normal ultrasound appearance of the kidneys, bilaterally. Cardiac MRI performed on 11/02/12 in [place]: indication: severe Hypertension with suspected severe concentric [...] Metoprolol changed to carvedilol 10/2012 while in [place] for uncontrolled Hypertension Start hydrochlorothiazide 12.5 mg [...] Team Description 11/27/2024 [facility]tico[facility] [address] [place] [address] Juventino Hutchinson (Pharm.D), PHARM.D. 11/21/2024 Anticoagulation [facility] [address] [place] [address] Noah Dill (Pharm.D), PHARM.D. 11/15/2024 11:40 AM PDT Telephone Appointment Visit [facility] [address] [place] [address] Wilmer Ludwig), MTano. ATRIAL FIBRILLATION, UNSPECIFIED (Primary Dx); HTN; HYPERLIPIDEMIA; PREDIABETES; OSTEOPOROSIS; ATHEROSCLEROSIS AORTA; OSTEOARTHRITIS OF LEFT KNEE; SENILE PURPURA; DIASTOLIC HEART FAILURE, CHRONIC (HFPEF); BILAT PRIMARY OPEN ANGLE GLAUCOMA; OSTEOARTHRITIS OF LEFT HIP; HX OF [place], UNSPECIFIED TYPE; CKD STAGE 3A (GFR 45-59); SUPRAVENTRICULAR TACHYCARDIA, NONSUSTAINED; ANTICOAGULATION MONITORING, INR 2.0-3.0; ANEMIA 11/12/2024 [facility]ticoagulation [facility] [place] [address] Juventino Hutchinson (Pharm.D), PHARM.D. 11/06/2024 3:00 PM PDT Office Visit CARDIOLOGY [address] [place] [address] Melanie Osuna (N.P.), N.P. ATRIAL FIBRILLATION, PAROXYSMAL; HTN; HYPERLIPIDEMIA; PRESENCE OF CARDIAC PACEMAKER 11/05/2024 Anticoagulation [facility] [place] [address] Noah Dill (Pharm.D), PHARM.D. 11/04/2024 Telephone [facility] [address] [place] [address] Wilmer Ludwig), MTano. TEST RESULTS 11/01/2024 Call Center Telephon e Encounter [facility] [place] [address] Francheska Lares M.D., M.D. APPOINTMENT REQUEST, ROUTINE ([facility], CARDIOLOGY) 10/30/2024 Anticoagulation [facility] [address] [facility] [place] [address] Noah Dill (Pharm.D), PHARM.D. 10/30/2024 Telephone [facility] [address] [place] [address] Tessy Kerr M.D., MMagdalene 10/29/2024 Telephone [place] [address] Shante Anglin (Pharm.D), PHARM.D. PHARMACY ANTICOAGULATION CLINIC SERVICE 10/26/2024 10:10 AM PDT Telephone Appointment Visit [facility] [address] [place] [address] Tessy Kerr), MTano. AFTERCARE FOLLOWING HOSPITALIZATION (Primary Dx); ANEMIA; ATRIAL FIBRILLATION W RAPID VENTRICULAR RESPONSE 10/23/2024 Anticoagulation [place] [address] Noah Dill (Pharm.D), PHARM.D. 10/22/2024 Transitional Care Mgmnt-Telephone CONTINUING [place] [address] Uche Hensley (R.N.), R.N. HOSPITAL FOLLOW UP (Transitional Care Management / Post Hospital Discharge Call - Continuing Care Services /) 10/22/2024 Anticoagulation [facility] [address] [place] [address] Noah Dill (Pharm.D), PHARM.D. 10/14/2024 10:54 AM PDT - 10/21/2024 5:11 PM PDT Hospital Encounter [facility] [address] [place] [address] Fariha Hermosillo), MCatalino Qiu (Richie), MEder Le (D.O.), D.ORegine Hess (D.O.), D.O. ATRIAL FIBRILLATION W RAPID VENTRICULAR RESPONSE Discharge Disposition: Home or Self Care. 10/14/2024 10:00 AM PDT Office Visit URGENT CARE - [place] [id number] [place] [phone] [facility]-Ashok otto (P.A.), P.A. ABDOMINAL PAIN (Primary Dx) 10/08/2024 10:45 AM PDT Allied Health/Nurse [place] [address] KenrickGennaun SCREENING 10/08/2024 10:00 AM PDT Allied Health/Nurse Visit OPHTHALMOLOGY [address] [place] [address], [place] [address] Carlene Ortiz), M.A. VISUAL FIELD TEST 09/26/2024 Call Center Telephon e Encounter OPHTHALMOLOGY [id number] [place] [phone] Juancarlos Arboleda M.D., MTano. MEMBER INITIATED (MESSAGE CENTER CALL) 09/25/2024 Anticoagulation [facility] [address] [place] [phone] Noah Dill (Pharm.D), PHARM.D. 09/24/2024 9:40 AM PDT Allied Health/Nurse Visit [facility]ACT[facility] [address] [place] [address] Barby Marti (L.V.N.), L.V.N. 09/11/2024 Anticoagulation [facility] [id number] [place] [phone] Noah Dill (Pharm.D), PHARM.D. 09/11/2024 Telephone [facility] PRACTICE [address] [place] [address] Wilmer Ludwig), MMagdalene TEST RESULTS 09/10/2024 1:40 PM PDT Allied Health/Nurse Visit [facility] [address] [place] [address] Jane GuR.NLamar), R.N. 09/10/2024 Orders Only COMPLETE CARE [id number] [place] [phone] Wilmer Ludwig), MTano. ABNL KIDNEY FUNCTION STUDY from Last 3 [...] and over (FLUVIRIN ) (Influenza) 03/10/2015,05/20/2014,04/11/2013 PCV13 ([id number]) (Pneumococ deepali conjugate, 13 valent) 03/10/2015 PPSV23 [...] AM PDT Office Visit CARDIOLOGY [address] [place] [phone] Melanie Osuna (N.P.), N.P. [address] [place] [address] Health Maintenance Due Date Last [...] history exists Medical Devices Implanted Type Area Affiliate Marketing Manager Device Identifier Shelf Expiration Date Model / Serial / Lot Pacemaker Cardiac .75cm 4.45x5.88cm Accolade Mri Latitude Nxt Pacesafe Easyview 2 [facility] - [id number] Implanted:Qt y: 1 on 05/23/2023 by Fanny Jade)Richie Cardiac Implant N/A: Chest BSCI - CARDIAC RHYTHM MGMT [id number] 03/28/2025 [id number] / [id number] / NA Lead Straight Ingevity+ Af Is1 7841 52cm Red - [id number] Implanted:Qt y: 1 on 05/23/2023 by Fanny Jade)Richie Cardiac Implant Right: Ventricle BSCI - CARDIAC RHYTHM MGMT 04/26/2025 [id number] / [id number] / NA Lead Straight Ingevity+ Af Is1 7840 45cm White - [id number] Implanted:Qt y: 1 on 05/23/2023 by Fanny Jade)Richie Cardiac Implant Right: Atrium BSCI - CARDIAC RHYTHM MGMT 04/16/2025 7840 / [id number] / NA Lens Iol +18.5 Sydney Biconvex 13mm 6mm Post Chmbr 1 Pc Foldable Uv Absorb Modif L - [id number] Implanted:Qt y: 1 on 07/17/2014 by Juancarlos Arboleda M.D., M.D. Eye Right: Eye [employer] [id number] 04/01/2019 SN60 [id number] / [id number] / Lens Iol +18.5 Sydney Biconvex 13mm 6mm Post Chmbr 1 Pc Foldable Uv Absorb Modif L - [id number] Implanted:Qt y: 1 on 08/12/2014 by Juancarlos Arboleda)Richie Eye Left: Eye [employer] [id number] 10/30/2018 SN60 [id number] / [id number] / Liner Acetabular Altrx Neutral 54mm 36mm Hip - [id number] Implanted:Qt y: 1 on 04/28/2021 by David Palacios)Richie Orthopedic Left: Hip [employer]PUY [id number] 11/30/2025 [id number] / / [id number] Cup Acetabular 54mm [place] Sector Series Hip - [id number] Implanted:Qt y: 1 on 04/28/2021 by David Palacios)Richie Orthopedic Left: Hip [employer] DEPUY [id number] 11/30/2030 [id number] 4 / / [id number] Stem Fem 160mm 8 06/15 High Offset Taper [place] Hip - [id number] Implanted:Qt y: 1 on 04/28/2021 by David Palacios)Richie Orthopedic Left: Hip J&J DEPUY [id number] 01/30/2030 [id number] 0 / / [id number] Head Fem +1.5mm Thk6 Mil 06/15 Taper 36mm Hip Cementless Ceramic Articul/Jose - [id number] Implanted:Qt y: 1 on 04/28/2021 by David Palacios)Richie Orthopedic Left: Hip [employer] DEPUY [id number] 10/30/2025 [id number] 0 / / [id number] Screw Bone 6.5mm 25mm [place] Dome 4 Point Cut Flute Hip Acetabular Cancell Self Tap Hex - [id number] Implanted:Qt y: 1 on 04/28/2021 by David Palacios)Richie Screws/Plate s/Wires Left: Hip J&J DEPUY [id number] 03/02/2031 [id number] / / [id number] Procedures Procedure Name Priority Date/Time Associated Diagnosis [...] time period is included. PT INR 2.41 Comment:[facility] [address] [facility] [id number] BLOOD BLOOD / Unknown 11/22/2024 Borvimal (Pharm.D) Jasper PHARM.D. COAGULATION * POTASSIUM (11/04/2024 8:41 AM PDT) Only the most recent of5 resultswithin the time period is included. POTASSIUM 4.0 3.5 - 5.1 mEq/L [facility] Comment: Please review results carefully for any changes to reference ranges (indicated by R superscript). Deployment of new chemistry analyzers is occurring across [facility] through 2026. BLOOD / Unknown 11/04/2024 8 :41 AM PDT Narrative [facility] - 11/04/2024 3:11 PM PDT [facility] ACCN: [id number] Wilmer Ludwig M.D. SERUM CHEM ISTRY [facility] [address] [place] [address] * CREATININE (10/29/2024 12:10 PM PDT) Only the most recent of11 resultswithin the time period is included. CREATININE 0.87 0.57 - 1.11 mg/dL [facility] Comment: Please review results carefully for any changes to reference ranges (indicated by R superscript). Deployment of new chemistry analyzers is occurring across [facility] through 2026. EGFR, CREATININE-BASED FORMULA (CKD-EPI 2020) 67 >=60 mL/min/BSA [facility] Comment: GFR estimate is by [...] Unknown 10/29/2024 1 2:10 PM PDT Narrative [facility], [facility] - 10/30/2024 2:29 AM PDT [facility] ACCN: [id number] Tessy Peralta) Usha Quiroz SERUM CH EMISTRY Performing Organization Address [facility] [place] [address] * (ABNORMAL) ELECTROLYTE PANEL (NA, K, CL, CO2) (10/29/2024 12:10 PM PDT) Only the most recent of2 resultswithin the time period is included. Pathologist [facility] SODIUM 137 136 - 145 mEq/L [facility], [facility] POTASSIUM 3.0(L) 3.5 - 5.1 mEq/L [facility], [facility] CHLORIDE 101 98 - 113 mEq/L [facility], [facility] CO2 27 23 - 31 mEq/L [facility], [facility] Comment: Please review results carefully for any changes to reference ranges (indicated by R superscript). Deployment of new chemistry analyzers is occurring across [facility] through 2026. BLOOD / Unknown 10/29/2024 1 2:10 PM PDT Narrative [facility], [facility] - 10/30/2024 2:29 AM PDT [facility] ACCN: [id number] Tessy Peralta) Usha Quiroz SERUM CH EMISTRY Performing Organization Address City/[facility]/ZIP Co de Phone Number [facility] [place] [address] [place] [address] * (ABNORMAL) CBC NO DIFFERENTIAL (10/29/2024 12:10 PM PDT) [facility] WBC'S AUTO 8.3 4.0 - 11.0 x1000/mcL [facility], [facility] RBC, AUTO 3.75 3.70 - 5.20 Mill/mcL [facility], [facility] HGB 10.6(L) 11.5 - 16.0 g/dL [facility], [facility] HCT, AUTO 32.5(L) 35.0 - 47.0 % [facility], [facility] MCV 86.7 81.0 - 99.0 fL [facility], [facility] MCH 28.3 25.0 - 35.0 pg/cell [facility], [facility] MCHC 32.6 30.0 - 35.0 g/dL [facility], [facility] RDW, BLOOD 14.6 11.5 - 16.0 % [facility], [facility] PLATELETS, AUTOMATED COUNT 482(H) 130 - 400 x1000/mcL [facility], [facility] BLOOD / Unknown 10/29/2024 1 2:10 PM PDT Narrative [facility], [facility] - 10/30/2024 12:32 AM PDT [facility] ACCN: [id number] Tessy Peralta) Usha Quiroz HEMATOLO GY [facility], [address] [address] * LIVER FUNCTION PANEL (TBILI, ALT, ALKP) (10/22/2024 1:16 PM PDT) [facility] ALT 14 <=54 U/L [facility] ALKALINE PHOSPHATASE 50 <=125 U/L [facility] BILIRUBIN, TOTAL 0.6 <=1.0 mg/dL [facility] BLOOD / Unknown 10/22/2024 1 :16 PM PDT Narrative [facility] - 10/22/2024 7:47 PM PDT [facility] ACCN: [id number] Ashok Tochukwu (P.A.) Umah-Mgborogwu P. A. SERUM CHEMISTRY Performing Organization Address City/[facility]/ZIP Co de Phone Number [facility] [id number] [place] [address] * BUN (10/22/2024 1:16 PM PDT) Only the most recent of9 resultswithin the time period is included. BUN 9 <=18 mg/dL [facility] BLOOD / Unknown 10/22/2024 1 :16 PM PDT Narrative [facility] - 10/22/2024 7:40 PM PDT [facility] ACCN: [id number] Ashok Tochukwu (P.A.) Umah-Mgborogwu P. A. SERUM CHEMISTRY Performing Organization Address [facility] de Phone Number [facility] [id number] [place] [address] * LIPASE (10/22/2024 1:16 PM PDT) Only the most recent of2 resultswithin the time period is included. LIPASE 39 <=58 U/L [facility] BLOOD / Unknown 10/22/2024 1 :16 PM PDT Narrative [facility] - 10/22/2024 7:47 PM PDT [facility] ACCN: [id number] Ashok Tochukwu (P.A.) Umah-Mgborogwu P. A. SERUM CHEMISTRY Performing Organization Address City/[facility]/ZIP Co de Phone Number [facility] [address] [place] [address] * (ABNORMAL) CBC W AUTOMATED DIFFERENTIAL (10/22/2024 1:16 PM PDT) Only the most recent of9 resultswithin the time period is included. WBC'S AUTO 10.7 4.0 - 11.0 x1000/mcL [facility] RBC, AUTO 3.75 3.70 - 5.20 Mill/mcL [facility] HGB 10.5(L) 11.5 - 16.0 g/dL [facility] HCT, AUTO 31.4(L) 35.0 - 47.0 % [facility] MCV 83.7 81.0 - 99.0 fL [facility] MCH 28.0 25.0 - 35.0 pg/cell [facility] MCHC 33.4 30.0 - 35.0 g/dL [facility] RDW, BLOOD 14.3 11.5 - 16.0 % [facility] PLATELETS, AUTOMATED COUNT 569(H) 130 - 400 x1000/mcL [facility] BLOOD / Unknown 10/22/2024 1 :16 PM PDT Narrative [facility] - 10/22/2024 7:50 PM PDT [facility] ACCN: [id number] Ashok Batres (P.A.) Umah-Mgborogarmani P. ALamar HEMATOLOGY [facility] [address] [place] [address] * (ABNORMAL) B-TYPE NATRIURETIC PEPTIDE (BNP) (10/22/2024 1:16 PM PDT) Only the most recent of3 resultswithin the time period is included. Pathologist [facility] B TYPE NATRIURETIC PEPTIDE 820(H) <=99 pg/mL [facility] Comment: Less than 100: Not likely heart failure 100-500: Indeterminate range Greater than 500: Heart failure likely For Indeterminate results, one must consider the following: Baseline BNP value elevated due to stable underlying dysfunction; right ventricular failure present from COR Pulmonale; Acute pulmonary embolism or renal failure. BLOOD / Unknown 10/22/2024 1 :16 PM PDT Narrative [facility] - 10/22/2024 7:27 PM PDT [facility] ACCN: [id number] Ashok Lorenzou (P.A.) Umah-Mgborogwu P. A. SERUM CHEMISTRY Performing Organization Address City/[facility]/ZIP Co de Phone Number [facility] [address] [place] [address] * (ABNORMAL) WBC AUTO DIFF (10/22/2024 1:16 PM PDT) Only the most recent of9 resultswithin the time period is included. NEUTROPHILS %, AUTOMATED COUNT 79.3 [facility] LYMPHOCYTES %, AUTOMATED COUNT 10.7 [facility] MONOS %, AUTO 6.1 [facility] EOSINOPHILS %, AUTOMATED COUNT 1.6 [facility] BASOPHILS %, AUTOMATED COUNT 0.6 [facility] IMMATURE GRANULOCYTES %, AUTOMATED COUNT 2 [facility] RBC NUCLEATED AUTO COUNT, BLD 0 <=0 % [facility] NEUTROPHILS, ABSOLUTE, AUTOMATED COUNT 8.50(H) 1.80 - 7.70 x1000/mcL [facility] LYMPHOCYTES, AUTOMATED COUNT 1.15 1.00 - 3.60 x1000/mcL [facility] MONOCYTES, AUTOMATED COUNT 0.65 0.10 - 1.00 x1000/mcL [facility] EOSINOPHILS, AUTOMATED COUNT 0.17 0.00 - 0.70 x1000/mcL [facility] BASOPHILS, AUTOMATED COUNT 0.06 0.00 - 0.20 x1000/mcL [facility] IMMATURE GRANULOCYTES, AUTOMATED COUNT 0.18(H) 0.01 - 0.09 x1000/mcL [facility] BLOOD / Unknown 10/22/2024 1 :16 PM PDT Narrative [facility] - 10/22/2024 7:50 PM PDT [facility] ACCN: [id number] Ashok Batres (P.A.) Rico-Mgborogwu P. A. HEMATOLOGY Performing Organization Address City/[facility]/ZIP Co de Phone Number [facility] [address] [place] [address] * GLUCOSE (10/22/2024 1:16 PM PDT) Only the most recent of2 resultswithin the time period is included. GLUCOSE, RANDOM 107 70 - 140 mg/dL [facility] BLOOD / Unknown 10/22/2024 1 :16 PM PDT Narrative [facility] - 10/22/2024 7:40 PM PDT [facility] ACCN: [id number] Ashok Batres (P.A.) [facility] RehabilitationLyndonMgborogwu P. A. SERUM CHEMISTRY Performing Organization Address [facility] de Phone Number [facility] [address] [place] [address] * (ABNORMAL) ELECTROLYTE PANEL (NA, K, CL, CO2, ANION GAP) (10/21/2024 4:37 AM PDT) Only the most recent of13 resultswithin the time period is included. SODIUM 127(L) 135 - 145 mEq/L [facility] POTASSIUM 3.6 3.5 - 5.0 mEq/L [facility] CHLORIDE 96(L) 101 - 111 mEq/L [facility] CO2 22 21 - 31 mEq/L [facility] ANION GAP (NA - (CL + CO2)) 9 3 - 11 mEq/L [facility] BLOOD / Unknown 10/21/2024 4 :37 AM PDT Keyon Peralta) Azael Quiroz [facility] CHEMISTRY Performing Organization Address City/[facility]/ZIP Co de Phone Number [facility] [address] [place] [address] * (ABNORMAL) PHOSPHATE (10/21/2024 4:37 AM PDT) Only the most recent of2 resultswithin the time period is included. PHOSPHORUS 2.6(L) 2.7 - 4.5 mg/dL [facility] BLOOD / Unknown 10/21/2024 4 :37 AM PDT Regine HinesO.) Kobi Witt SERUM ELECTRICIAN CHIEF RY Performing Organization Address [facility] Co de Phone Number [facility] [address] [place] [address] * MAGNESIUM (10/21/2024 4:37 AM PDT) Only the most recent of9 resultswithin the time period is included. MAGNESIUM 2.3 1.7 - 2.8 mg/dL [facility] Comment: Magnesium results between 4.9 mg/dL and 9.7 mg/dL are not considered critical for patients receiving MgSO4 therapy. BLOOD / Unknown 10/21/2024 4 :37 AM PDT Eder Santoro (Familia.OLamar) Javad Witt SERUM CHEMISTRY Performing Organization Address [facility] de Phone Number [facility] [address] [place] [address] * (ABNORMAL) GLUCOSE, FASTING (10/21/2024 4:37 AM PDT) Only the most recent of7 resultswithin the time period is included. GLUCOSE, FASTING 117(H) 70 - 99 mg/dL [facility] Comment: A repeatable fasting blood glucose [...] Quiroz SERUM CHEMISTR Y Performing Organization Address [facility] Co de Phone Number [facility] [id number] [place] [address] * SODIUM, URINE (10/20/2024 9:59 PM PDT) SODIUM, URINE 56 mEq/L [facility] Comment: To precisely quantify excretion, please collect 24 hour urine. URINE 10/20/2024 9:59 PM PDT Keyon Peralta) Azael GARCIA CHEMISTRY Performing Organization Address [facility] de Phone Number [facility] [address] [place] [address] * OSMOLALITY, URINE (10/20/2024 9:59 PM PDT) OSMOLALITY, URINE 625 50 - 1,200 mOsm/kg [facility] Comment: Reference Range for Urine Osmolality: Random Specimen : 50-1200 mOsm/kg H2O 24 Hr Specimen: Age: 0-1 Month : 50-645 mOsm/kg H2O Age: 1 Month-Adult : 50-900 mOsm/kg H2O URINE 10/20/2024 9:59 PM PDT Keyon GARCIA CHEMISTRY Performing Organization Address [facility] de Phone Number [facility] [address] [place] [address] * (ABNORMAL) OSMOLALITY, SERUM (10/20/2024 12:07 PM PDT) Pathologist [facility] MEASURED OSMOLALITY 263(L) 280 - 305 mOsm/kg [facility] BLOOD / Unknown 10/20/2024 1 2:07 PM PDT Keyon Peralta) Azael Quiroz SER UM CHEMISTRY Performing Organization Address [facility] de Phone Number [facility] [address] [place] [address] * XR CHEST 1 VIEW (10/19/2024 4:34 [...] PDT) STREPTOCOCCUS PNEUMONIAE AG, URINE Negative Negative [facility] Comment: Adults with pneumococcal pneumonia sensitivity 50-80%; specificity 90%. Children with pneumococcal pneumonia sensitivity 80-90%; specificity 60-80%. URINE 10/16/2024 7:37 PM PDT Eder Santoro (Familia.Navneet) Javad Witt IMMUNOLOGY [facility] [address] [facility] [place] [address] * LEGIONELLA PNEUMOPHILA ANTIGEN, URINE, IMMUNOASSAY (10/16/2024 7:37 PM PDT) LEGIONELLA PNEUMOPHILA AG, URINE, EIA Presumptive Negative Presumptive Negative [facility] Comment: Presumptive positive for the presence of L. pneumophila serogroup 1 antigen in urine, suggesting current or past infection. Please submit a respiratory specimen for LEGIONELLA SPECIES CULTURE [[facility] order code: [id number]]. Urinary Legionella antigen may persist long after active infection has resolved. More conclusive evidence of active infection is obtained from LEGIONELLA SPECIES CULTURE [[facility] order code: [id number]], Results of this assay should be interpreted [...] 10/16/2024 7:37 PM PDT Eder Santoro (D.O.) Carlosa D.O. OUTSIDE TESTING Performing Organization Address [facility] de Phone Number [facility] [address] [place] [address] * SARS-COV-2 (COVID-19), INFLUENZA A + B, MULTIPLEX STACY (10/16/2024 11:45 AM PDT) SARS-COV-2 (COVID-19), QUALITATIVE, STACY Not Detected Not Detected [facility] INFLUENZA VIRUS A, PCR Not Detected Not Detected [facility] INFLUENZA VIRUS B RNA, PCR Not Detected Not Detected [facility] Comment: Positive results do not rule [...] 11:4 5 AM PDT Eder Santoro (D.O.) Leeroycera D.O. VIROLOGY Performing Organization Address [facility] Co de Phone Number [facility] [address] [place] [address] * CLOSTRIDIUM DIFFICILE GDH AG, TOXINS A, B W REFLEX TO PCR (10/15/2024 10:11 AM PDT) CLOSTRIDIOIDES (CLOSTRIDIUM) DIFFICILE AG AND TOXINS A+B, STOOL Negative Negative [facility] Comment: A finding of I ndeterminate represents discrepant immunoassay results obtained for GDH (antigen specific to C. difficile) and toxin production. Molecular testing (nucleic acid amplification) will follow to confirm results. STOOL 10/15/2024 10:1 1 AM PDT Eder Santoro (Miryam) Javad Witt MICROBIOLOGY Performing Organization Address [facility] Co de Phone Number [address] [address] * (ABNORMAL) HEPARIN THERAPY, APTT (10/15/2024 8:12 AM PDT) Only the most recent of2 resultswithin the time period is included. APTT 52(L) 68 - 105 Sec [facility] BLOOD / Unknown 10/15/2024 8 :12 AM PDT Anish (R.P.H.) Aniyah PHARMLamarDLamar COAGULATION Performing Organization Address [facility] Co de Phone Number [facility] [id number] [place] [address] * (ABNORMAL) UNFRACTIONATED HEPARIN, ANTI FACTOR XA (10/15/2024 8:12 AM PDT) Only the most recent of2 resultswithin the time period is included. HEPARIN, UNFRACTIONATED <0.10(L) 0.30 - 0.70 IU/mL [facility] BLOOD / Unknown 10/15/2024 8 :12 AM PDT Anish (R.P.H.) Aniyah PHARM.Charbel COAGULATION Performing Organization Address [facility] Co de Phone Number [facility] [address] [place] [address] * (ABNORMAL) ALBUMIN (10/15/2024 5:57 AM PDT) Pathologist [facility] ALBUMIN 2.4(L) 3.3 - 4.8 g/dL [facility] BLOOD / Unknown 10/15/2024 5 :57 AM PDT Catalino Peralta) Rl Quiroz SERUM CHEMISTR Y [facility] [address] [place] [address] * BACTERIAL GI PANEL (SALMONELLA, SHIGELLA/EIEC, CAMPYLOBACTER, SHIGA TOXIN DNA), STOOL, MULTIPLEX PCR (10/14/2024 10:38 PM PDT) Pathologist [facility] SALMONELLA SPECIES DNA, STOOL, QL, PCR Not Detected Not Detected [facility], [facility] SHIGELLA SP+EIEC DNA, STOOL, QL, PCR Not Detected Not Detected [facility], [facility] CAMPYLOBACTER COLI/JEJUNI DNA, STOOL, QL, PCR Not Detected Not Detected [facility] , [facility] SHIGA TOXIN GENES, PCR Not Detected Not Detected [facility] , [facility] Comment: A Not Detected result may [...] Peralta) Rl Quiroz MICROBIOLOGY Performing Organization Address [facility] Co de Phone Number [address] [address] * BLOOD CULTURE (10/14/2024 4:14 PM PDT) Only the most recent of2 resultswithin the time period is included. FINAL RESULT No growth at 5 days. [facility] BLOOD / Unknown 10/14/2024 4 :14 PM PDT Catalino Peralta) Rl Quiroz MICROBIOLOGY Performing Organization Address [facility] Co de Phone Number [address] [address] * (ABNORMAL) TROPONIN I, HIGH SENSITIVITY (10/14/2024 3:55 PM PDT) Only the most recent of2 resultswithin the time period is included. TROPONIN I, HIGH SENSITIVITY 24(H) <=12 pg/mL [facility] Comment: Symptom hsTnI (pg/mL) Delta hsTnl Interpretation Duration M F (pg/mL) >=18y/o M <18y/o Any >100 >75 Myocardial Injury >3 hours <=20 <=12 No Myocardial Injury 21-100 13-75 Rpt TnI in 2 hrs.Calc Delta <=5 No MD 6-10 Indeterminate >10 Acute Myocardial Injury *Troponin values may be elevated in clinical conditions other than acute coronary syndrome. BLOOD / Unknown 10/14/2024 3 :55 PM PDT Catalino Peralta) Rl Quiroz IMMUNOLOGY [facility] [address] [place] [address] * CT ABD AND PELVIS NO CONTRAST [...] LACTATE, SER/PLAS 1.0 0.5 - 1.9 mmol/L [facility] BLOOD / Unknown 10/14/2024 2 :04 PM PDT Narrative [facility] - 10/14/2024 2:23 PM PDT Fariha Peralta) Jaimee Quiroz SERUM CHEM ISTRY Performing Organization Address City/[facility]/ZIP Co de Phone Number [facility] [address] [place] [address] * (ABNORMAL) CALCIUM (10/14/2024 2:04 PM PDT) CALCIUM 8.0(L) 8.5 - 10.7 mg/dL [facility] BLOOD / Unknown 10/14/2024 2 :04 PM PDT Fariha Peralta) Jaimee Quiroz SERUM CHEM ISTRY Performing Organization Address [facility] Co de Phone Number [facility] [address] [place] [address] * (ABNORMAL) LACTIC ACID W REFLEX TO REPEAT (10/14/2024 11:06 AM PDT) LACTATE, SER/PLAS 2.3(H) 0.5 - 1.9 mmol/L [facility] BLOOD / Unknown 10/14/2024 1 1:06 AM PDT Fariha Peralta) Jaimee Quiroz SERUM CHEM ISTRY Performing Organization Address City/[facility] Co de Phone Number [facility] [address] [place] [address] * ALT (10/14/2024 11:06 AM PDT) ALT 15 <=54 U/L [facility] BLOOD / Unknown 10/14/2024 1 1:06 AM PDT Kelly Peralta) Yvan Quiroz SERUM CHEMISTRY [facility] [address] [place] [address] * AST (10/14/2024 11:06 AM PDT) AST 20 <=30 U/L [facility] BLOOD / Unknown 10/14/2024 1 1:06 AM PDT Kelly Peralta) Yvan Quiroz SERUM CHEMISTRY [place] [address] [place] [address] * ALKALINE PHOSPHATASE (10/14/2024 11:06 AM PDT) ALKALINE PHOSPHATASE 62 <=125 U/L [facility] BLOOD / Unknown 10/14/2024 1 1:06 AM PDT Kelly Peralta) Yvan Quiroz SERUM CHEMISTRY Performing Organization Address City/[facility]/ZIP Co de Phone Number [facility] [address] [place] [address] * (ABNORMAL) BILIRUBIN, DIRECT (10/14/2024 11:06 AM PDT) BILIRUBIN, DIRECT 0.4(H) <=0.2 mg/dL [facility] BLOOD / Unknown 10/14/2024 1 1:06 AM PDT Kelly Peralta) Yvan Quiroz SERUM CHEMISTRY Performing Organization Address City/[facility]/ZIP Co de Phone Number [facility] [id number] [place] [address] * (ABNORMAL) BILIRUBIN, TOTAL (10/14/2024 11:06 AM PDT) BILIRUBIN, TOTAL 1.3(H) <=1.0 mg/dL [facility] BLOOD / Unknown 10/14/2024 1 1:06 AM PDT Kelly Santoro M.D. SERUM CHEMISTRY Performing Organization Address [facility] Co de Phone Number [facility] [address] [place] [address] * (ABNORMAL) APTT (10/14/2024 11:06 AM PDT) APTT 40(H) 25 - 37 Sec [facility] BLOOD / Unknown 10/14/2024 1 1:06 AM PDT Shante (Pharm.D) To PHARM.Charbel COAGULATIO N Performing Organization Address [facility] de Phone Number [facility] [address] [place] [address] * EKG 12 OR MORE LEADS W INT & RPT (10/14/2024 10:30 AM PDT) VENTRICULAR RATE 178 BPM SCAL EKG INTERFACE ATRIAL RATE 182 BPM SCAL EKG INTERFACE CT INTERVAL 146 ms SCAL EKG INTERFACE QRS [...] 10/17/2024 3:38 PM PDT Ashok Batres (P.A.) Lanieah-Mgborogarmani P. A. CV EKG Performing Organization Address [facility] de Phone Number SCAL EKG INTERFACE * URINALYSIS, DIPSTICK, POCT (10/14/2024 10:11 AM PDT) Narrative Saran Stock (L.V.N.), L.V.N. - 10/14/2024 10:11 AM PDT URINE DIPSTICK, POCT GLUCOSE: Neg Reference Range: Negative KETONES: 15 mg/dL Reference Range: Negative SP. GRAVITY: 1.015 Reference Range: 1.005-1.030 BLOOD: Neg Reference Range: Negative PH: 6.5 Reference Range: 5.0 - 8.0 PROTEIN: 100 mg/dL (2+) Reference Range: Negative/Trace NITRITE: Negative Reference Range: Negative LEUKOCYTES: Negative Reference Range: Negative LOT#:[id number] Expiration Date:09/30/25 Date/Time: 10/14/2024 10:11 AM Performed by: SARAN STOCK LVN [facility] [address] [facility] [phone] [employer] OPERATOR HELPER: [facility] Med Office - Yolanda Prescott D.O. Ashok Batres (P.A.) UmahLyndonMgborogwu P. A. POCT * (ABNORMAL) SODIUM AND POTASSIUM (09/10/2024 11:56 AM PDT) SODIUM 136 135 - 145 mEq/L [facility] POTASSIUM 3.4(L) 3.5 - 5.0 mEq/L [facility] BLOOD / Unknown 09/10/2024 1 1:56 AM PDT Narrative [facility] - 09/10/2024 7:45 PM PDT CHRIS ACCN: [id number] Wilmer Ludwig M.D. SERUM CHEM ISTRY [facility] [address] [place] [address] from Last 3 Months Advance Directives * [...] Result Release to patient? Immediate Care Teams Box Machine Operator Relationship Specialty Start Date End Date Wilmer Ludwig)Dilma. [address] [phone] PCP - General Family Practice 01/10/14
--- OUTSIDE RECORDS SUMMARY | 2024-12-10 10:43 | XMS_ITS | Clinical Summary ---
Author Organization [facility] Health Address [address] [place] [address] Care Team Providers Care Resource Management Planner Name Role Phone Unavailable Primary Care Provider Unavailabl e Allergies Active Allergy Reactions Criticality Noted Date Comments Cefuroxime Rash Low 06/08/2017 Noted with antibiotics given in [place]. Hydrochlorothiazide 12/19/2013 Hyponatremia in setting of HCTZ Meperidine Hives High 08/29/2011 Nsaids (Non-Steroidal Anti-Inflammatory Drug) High 02/24/2017 [id number] Heart Failure. Exception to this NSAID intolerance is aspirin 81-325mg daily and topical or ophthalmic nsaids' Opioids - Morphine Analogues Hives 012 Oxycodone Hty-Yfjwlypdb-Bjx Hives 10/12/19 13 Oxycodone-Acetaminophen Hives 07/22/2011 Penicillins Hives 07/22/2011 Sulfa (Sulfonamide Antibiotics) Hives,Rash Low 08/18/2011 Medications atorvastatin (LIPITOR) 10 mg tablet Take 10 mg by mouth. 01/11/20 23 025 Active benzonatate (TESSALON) 100 mg capsule 06/03/20 23 Active cloNIDine (CATAPRES-TTS) 0.1 mg/[address] 1 patch on the skin every 7 (seven) days. 12/31/19 23 025 Active dilTIAZem CD (CARDIZEM CD) 120 mg 24 hr capsule Take 120 mg by mouth. 04/25/20 23 025 Active fluticasone propionate (FLONASE) 50 mcg/actuation nasal spray Use 2 sprays in each nostril daily. Reduce to 1 spray in each nostril daily when symptoms improve 11/22/19 23 027 Active nitrofurantoin , macrocrystal-m onohydrate, (MACROBID) 100 mg capsule Take 1 capsule by mouth 1 (one) time each day. 10/26/19 22 025 Active lisinopriL (PRINIVIL,ZEST RIL) 5 mg tablet Take 5 mg by mouth. 08/30/19 23 Active potassium chloride (KLOR-CON M20) 20 mEq CR tablet 05/22/20 23 Active warfarin (COUMADIN) 2 mg tablet Take by mouth as directed by Anticoagulation clinic 12/21/19 23 025 Active Active Problems Problem Noted Date Diagnosed Date Acquired cerebral atrophy 06/20/2023 Overview (08/08/2023): CT Head 05/24/16 Osteoarthritis of left foot 04/25/2023 Atypical chest pain 08/26/2022 Shortness of breath 08/26/2022 Recurrent UTI 08/05/2021 History of myocardial infarction 08/14/2019 Not current smoker 04/11/2018 Elevated troponin I level 04/10/2018 Hypokalemia 04/10/2018 Chronic congestive heart failure 12/05/2017 Chronic renal insufficiency, stage III (moderate ) 08/01/2017 Osteoarthritis of left hip 10/25/2016 Encounter for therapeutic drug level monitoring 10/23/2015 Overview (08/08/2023): IP referral for afib Atrial fibrillation with RVR 10/21/2015 Senile purpura 07/25/2014 Osteoarthritis of left knee 01/17/2014 Overweight 11/14/2013 Prediabetes 08/12/2013 Atherosclerosis of aorta 01/04/2013 Stenosis of both renal arteries 01/04/2013 Overview (08/08/2023): Overview: Renal ultrasound 11/02/12 from [place]: 1. Unable to see the origin of the left renal artery due to calcification. There are elevated velocities in the left renal artery suggestion a hemodynamically significant stenosis. If clinically indicated, an angiogram with intent to treat could be considered. 2. Normal ultrasound appearance of the kidneys, bilaterally. Cardiac MRI performed on 11/02/12 in [place]: indication: severe Hypertension with suspected severe concentric [...] artery stenosis, likely moderate renal artery stenosis. Renal ultrasound 11/02/12 from [place]: 1. Unable to see the origin of the left renal artery due to calcification. There are elevated velocities in the left renal artery suggestion a hemodynamically significant stenosis. If clinically indicated, an angiogram with intent to treat could be considered. 2. Normal ultrasound appearance of the kidneys, bilaterally. Cardiac MRI performed on 11/02/12 in [place]: indication: severe Hypertension with suspected severe concentric [...] ventricular hypertrophy due to hypertensive disease 10/26/2012 Anemia 10/11/2012 Hypertensive urgency 10/11/2012 Colon polyp 02/29/2012 Overview (08/08/2023): Overview: Tubular adenoma polypectomy 02/2012 Tubular adenoma polypectomy 02/2012 Diverticulosis of colon 02/29/2012 Osteopenia 12/29/2011 Overview (08/08/2023): Overview: 08-19-2011 DXA T-score: -1.2 (left neck) Z-score: 0.4 FRAX Scores are not Elevated Osteoporosis 12/29/2011 Overview (08/08/2023): 08-19-2011 DXA T-score: -1.2 (left neck) Z-score: 0.4 FRAX Scores are not Elevated Vitamin D deficiency 09/01/2011 Allergic rhinitis 08/18/2011 Family history of malignant neoplasm of breast 0 08/18/2011 Glaucoma of both eyes 08/18/2011 Hx of hysterectomy, total 08/18/2011 Hyperlipidemia 07/15/2011 Hypertension 07/15/2011 Overview (08/08/2023): Overview: Discontinued mazxide during hospitalization Last Admit [...] artery stenosis, likely moderate renal artery stenosis. Discontinued mazxide during hospitalization Last Admit Date: [...] artery stenosis, likely moderate renal artery stenosis. Social History Tobacco Use Types Packs/Day Years Used Date Smoking Tobacco: Never Assessed Comments Unknown Sex and Gender Information Value Date Recorded Sex Assigned at Not on file Legal Sex Female 4:22 AM PST Gender Identity Not on file Sexual Orientation Not on file Plan of Treatment Health Maintenance Due Date Last Done Comments Periodontal Maintenance 1945 Dental X-Ray: Panoramic 12/11/2023 12/10/19 21, 05/05/2020, 03/08/2013 Velscope Screening 02/06/2024 08/08/2023 Dental Oral Exam 02/07/2024 08/08/2023, 09/2019, 03/08/2013 Dental X-Ray: Bitewings 02/07/2024 08/08/2023 Scaling and Root Planing 11/29/2025 024, 11/16/2023, 11/16/2023, Additional history exists Dental CBCT 08/08/2026 08/08/2023 Dental X-Ray: Full Mouth 08/10/2026 024, 08/08/2023, 03/08/2013 Meningococcal B Vaccine Aged Out No l onger eligible based on patient's age to complete this topic Procedures Procedure Name Priority Date/Time Associated Diagnosis Comments UR PERIODONTAL SCALING AND ROOT PLANING - FOUR OR MORE TEETH PER QUADRANT Routine 11/16/2023 10:00 AM PDT [address] [address] CAPTURE AND INTERPRETATION WITH FIELD OF VIEW OF BOTH JAWS; WITH OR WITHOUT CRANIUM Routine 08/08/2023 10:00 AM PST ADJUNCTIVE PRE-DIAGNOSTIC TEST THAT AIDS IN DETECTION OF MUCOSAL ABNORMALITIES Routine 08/08/2023 10:00 AM PST COMPREHENSIVE ORAL EVALUATION - NEW OR ESTABLISHED PATIENT Routine 08/08/2023 10:00 AM PST PANORAMIC RADIOGRAPHIC IMAGE Routine 05/05/2020 12:00 AM PST INTRAORAL - COMPREHENSIVE SERIES OF RADIOGRAPHIC IMAGES Routine 03/08/2013 12:00 AM PDT from Last 3 Months or Most Recently Relevant to Health Maintenance Insurance [facility]
--- OUTSIDE RECORDS SUMMARY | 2024-12-10 10:43 | XMS_ITS | Encounter Summary ---
Author Organization [facility] Address [address] [place] [address] Care Team Providers Care Internal Sales Name Role Phone Wilmer Ludwig) Richie Primary Care Prov ider Unavailable Encounter Details Date Type Department Care Team (Late st Contact Info) Description 10/30/2024 Anticoagulation [facility] [address] [place] [address] Noah Dill (Pharm.D), PHARM.D. [address] [place] [phone] Social History Tobacco Use Types Packs/Day Years [...] Clinic After Hours Note RE: Saira Belle, [phone] Spoke with patient regarding critical INR. No [...] upcoming invasive procedures Patient Reported: per IP [facility] f/u 10/29/24: Instructed patient to hold warfarin [...] PDT Office Visit CARDIOLOGY [address] [phone] Melanie Osuna (N.P.), N.P. [address] [facility] [place] [phone] documented as of this encounter Visit Diagnoses Not on filedocumented in this encounter Care Teams Internal Sales Relationship Specialty Start Date End Date Wilmer Ludwig), Dilma. [address] [phone] PCP - General Family Practice 01/10/14 documented as of this encounter
--- OUTSIDE RECORDS SUMMARY | 2024-12-10 10:43 | XMS_ITS | Encounter Summary ---
Author Organization [facility] Address [address] [place] [address] Care Team Providers Care Booking Prizer Name Role Phone Wilmer Ludwig) Dilma. Primary Care Prov ider Unavailable Reason for Visit * Reason Onset Date Comments TEST RESULTS 11/04/2024 Encounter Details Date Type Department Care Team (Late st Contact Info) Description 11/04/2024 Telephone FAMILY PRACTICE [address] [place] [address] Wilmer Ludwig), M.D. [address] [place] [phone] TEST RESULTS Social History Tobacco [...] of this encounter Progress Notes * Martine Valentnio - 11/04/2024 6:15 PM PDT Patient contacted and informed per provider instruction. Patient stated understanding. Message resolved. [facility] [place] [facility] [address] [facility] [address] [place] [phone] * Wilmer Ludwig), Richie - 11/04/2024 4:05 PM PDT Please advise pt repeat K level was normal. No further testing needed. documented in this encounter Plan of Treatment Upcoming Encounters Date Type Department Care Team (Late st Contact Info) Description 03/05/2025 10:00 AM PDT Office Visit CARDIOLOGY [address] [place] [phone] Melanie Osuna (N.P.), N.P. [address] [place] [address] documented as of this encounter Visit Diagnoses Not on filedocumented in this encounter Care Teams Booking Prizer Relationship Specialty Start Date End Date Wilmer Ludwig), Richie [address] [phone] PCP - General [facility] Practice 01/10/14 documented as of this encounter
--- OUTSIDE RECORDS SUMMARY | 2024-12-10 10:43 | XMS_ITS | Encounter Summary ---
Author Organization [facility] Health Address [address] [place] [address] Care Team Providers Care Dismantler Name Role Phone Unavailable Primary Care Provider Unavailabl e Prior Encounters Date Type Department Care Team Description 11/16/2023 Travel 11/16/2023 10:00 AM PDT Office Visit [facility] [address], [address] [place] [address] Citlalli Wall [facility] 08/08/2023 Travel 08/08/2023 10:00 AM PST Office Visit [facility] [address], [address] [place] [address] Zeeshan Cartwright DDS 07/22/2019 Converted 13x Documents [facility] [address], [address] [place] [address] <No scans attached> 07/22/2019 Converted CPS Chart Documents [facility] [address], [address] [place] [phone] <No scans attached> Plan of Treatment Not on file Procedures Procedure Name Priority Date/Time Associated Diagnosis Comments TOPICAL APPLICATION OF FLUORIDE VARNISH Routine 11/16/2023 10:00 AM PDT UR ANTIBACT IRR/QUAD Routine 11/16/2023 10:00 AM PDT ORAL HYGIENE INSTRUCTIONS Routine 2023 10:00 AM PDT LR ANTIBACT IRR/QUAD Routine 11/16/2023 10:00 AM PDT LL ANTIBACT IRR/QUAD Routine 11/16/2023 10:00 AM PDT UL ANTIBACT IRR/QUAD Routine 11/16/2023 10:00 AM PDT LL PERIODONTAL SCALING AND ROOT PLANING - FOUR OR MORE TEETH PER QUADRANT Routine 11/16/2023 10:00 AM PDT LR PERIODONTAL SCALING AND ROOT PLANING - FOUR OR MORE TEETH PER QUADRANT Routine 11/16/2023 10:00 AM PDT UR PERIODONTAL SCALING AND ROOT PLANING - FOUR OR MORE TEETH PER QUADRANT Routine 11/16/2023 10:00 AM PDT UL PERIODONTAL SCALING AND ROOT PLANING - FOUR OR MORE TEETH PER QUADRANT Routine 11/16/2023 10:00 AM PDT ADJUNCTIVE PRE-DIAGNOSTIC TEST THAT AIDS IN DETECTION OF MUCOSAL ABNORMALITIES Routine 08/08/2023 10:00 AM PST INTRAORAL PHOTO Routine 08/08/2023 10:00 AM PST INTRAORAL PHOTO Routine 08/08/2023 10:00 AM PST INTRAORAL PHOTO Routine 08/08/2023 10:00 AM PST INTRAORAL PHOTO Routine 08/08/2023 10:00 AM PST ADDITIONAL X-RAY Routine 08/08/2023 10:0 0 AM PST ADDITIONAL X-RAY Routine 08/08/2023 10:0 0 AM PST ADDITIONAL X-RAY Routine 08/08/2023 10:0 0 AM PST ADDITIONAL X-RAY Routine 08/08/2023 10:0 0 AM PST [address] CAPTURE AND INTERPRETATION WITH FIELD OF VIEW OF BOTH JAWS; WITH OR WITHOUT CRANIUM Routine 08/08/2023 10:00 AM PST COMPREHENSIVE ORAL EVALUATION - NEW OR ESTABLISHED PATIENT Routine 08/08/2023 10:00 AM PST BITEWINGS - FOUR RADIOGRAPHIC IMAGES Routine 08/08/2023 10:00 AM PST SINGLE X-RAY Routine 08/08/2023 10:00 AM PST ADDITIONAL X-RAY Routine 08/08/2023 10:0 0 AM PST 27 PFM CROWN Routine 08/08/2023 12:00 AM PST 28 ROOT CANAL Routine 08/08/2023 12:00 AM PST PANORAMIC RADIOGRAPHIC IMAGE Routine 05/05/2020 12:00 AM PST BITEWINGS - FOUR RADIOGRAPHIC IMAGES Routine 05/05/2020 12:00 AM PST ADDITIONAL X-RAY Routine 05/05/2020 12:0 0 AM PST ADDITIONAL X-RAY Routine 05/05/2020 12:0 0 AM PST ADDITIONAL X-RAY Routine 05/05/2020 12:0 0 AM PST ADDITIONAL X-RAY Routine 05/05/2020 12:0 0 AM PST ADDITIONAL X-RAY Routine 05/05/2020 12:0 0 AM PST SINGLE X-RAY Routine 05/05/2020 12:00 AM PST COMPREHENSIVE ORAL EVALUATION - NEW OR ESTABLISHED PATIENT Routine 05/05/2020 12:00 AM PST 13 PONTIC - PFM - POST Routine 3 12:00 AM PDT 3 PONTIC - PFM - POST Routine 03/08/2013 12:00 AM PDT 7 PONTIC - PFM - POST Routine 03/08/2013 12:00 AM PDT 8 RETAINER CROWN - PFM - POST Routine 03/08/2013 12:00 AM PDT 6 RETAINER CROWN - PFM - POST Routine 03/08/2013 12:00 AM PDT 14 RETAINER CROWN - PFG - POST Routine 03/08/2013 12:00 AM PDT 12 RETAINER CROWN - PFG - POST Routine 03/08/2013 12:00 AM PDT 4 RETAINER CROWN - PFG - POST Routine 03/08/2013 12:00 AM PDT 2 RETAINER CROWN - PFG - POST Routine 03/08/2013 12:00 AM PDT 10 ENDODONTIC THERAPY, PREMOLAR TOOTH (EXCLUDING FINAL ANGLICAN) Routine 03/08/2013 12:00 AM PDT 8 ENDODONTIC THERAPY, PREMOLAR TOOTH (EXCLUDING FINAL ANGLICAN) Routine 03/08/2013 12:00 AM PDT 5 ENDODONTIC THERAPY, PREMOLAR TOOTH (EXCLUDING FINAL ANGLICAN) Routine 03/08/2013 12:00 AM PDT 4 ENDODONTIC THERAPY, PREMOLAR TOOTH (EXCLUDING FINAL ANGLICAN) Routine 03/08/2013 12:00 AM PDT 29 ENDODONTIC THERAPY, PREMOLAR TOOTH (EXCLUDING FINAL ANGLICAN) Routine 03/08/2013 12:00 AM PDT 29 CROWN PFG POST Routine 03/08/2013 12: 00 AM PDT 28 CROWN PFG POST Routine 03/08/2013 12: 00 AM PDT 21 CROWN PFG POST Routine 03/08/2013 12: 00 AM PDT 20 CROWN PFG POST Routine 03/08/2013 12: 00 AM PDT 5 CROWN PFM POST Routine 03/08/2013 12:0 0 AM PDT 10 CROWN PFM ANT Routine 03/08/2013 12:0 0 AM PDT 9 CROWN PFM ANT Routine 03/08/2013 12:00 AM PDT 11 CROWN PFM ANT Routine 03/08/2013 12:0 0 AM PDT COMPREHENSIVE ORAL EVALUATION - NEW OR ESTABLISHED PATIENT Routine 03/08/2013 12:00 AM PDT PANORAMIC RADIOGRAPHIC IMAGE Routine 03/08/2013 12:00 AM PDT INTRAORAL - COMPREHENSIVE SERIES OF RADIOGRAPHIC IMAGES Routine 03/08/2013 12:00 AM PDT INTRAORAL PHOTO Routine 03/08/2013 12:00 AM PDT INTRAORAL PHOTO Routine 03/08/2013 12:00 AM PDT INTRAORAL PHOTO Routine 03/08/2013 12:00 AM PDT INTRAORAL PHOTO Routine 03/08/2013 12:00 AM PDT Visit Diagnoses Not on file Insurance [facility]
--- OUTSIDE RECORDS SUMMARY | 2024-12-10 10:43 | XMS_ITS | Encounter Summary ---
Author Organization [facility] Address [address] [place] [address] Care Team Providers Care Pocketed Spring Machine Operator Name Role Phone Wilmer Ludwig) Richie Primary Care Prov ider Unavailable Encounter Details Date Type Department Care Team (Late st Contact Info) Description 11/21/2024 Anticoagulation [facility] [address] [place] [address] Noah Dill (Pharm.D), PHARM.D. [address] [place] [phone] Social History Tobacco Use Types Packs/Day Years [...] faxed. Electronically signed by: Juventino Hutchinson PharmMagdalene Custom Grinder Pharmacist 11/27/2024 2:11 PM * Noah DillPharm.D), PHARM.Charbel - 11/21/2024 4:27 PM PDT No INR in process. Will have credit assistant remind patient to return to lab for INR test TIM. Electronically signed by: NOAH DILL PHARMD 11/21/2024 4:27 PM documented in this encounter Nursing Notes * Sourav Amato - 11/27/2024 2:23 PM PDT Called patient to find out what lab patient went to ER in [facility] Spoke with Dew he will fax over results to us from her visit. Electronically signed by SOURAV AMATO Automation Machine Operator 11/27/2024 2:27 PM * Perlita Marti - 11/22/2024 12:04 PM PDT Lab reminder call x1, patient just went to lab this morning Electronically signed by PERLITA gilmore Automation Machine Operator 11/22/2024 12:04 PM documented in this encounter Plan of Treatment Upcoming Encounters Date Type Department Care Team (Late st Contact Info) Description 03/05/2025 10:00 AM PDT Office Visit CARDIOLOGY [address] [phone] Melanie Osuna (N.P.), N.P. [address] [place] [phone] documented as of this encounter Procedures Procedure Name Priority Date/Time Associated Diagnosis Comments INR Routine 11/22/2024 documented in this encounter Results * INR (11/22/2024) PT INR 2.41 Comment:[facility] [address] [facility] [phone] BLOOD BLOOD / Unknown 11/22/2024 Juventino (Pharm.D) [place] PHARM.DLamar COAGULATION documented in this encounter Visit Diagnoses Not on filedocumented in this encounter Care Teams Pocketed Spring Machine Operator Relationship Specialty Start Date End Date Wilmer Ludwig), M.D. [address] [phone] PCP - General Family Practice 01/10/14 documented as of this encounter
--- OUTSIDE RECORDS SUMMARY | 2024-12-10 10:43 | XMS_ITS | Encounter Summary ---
Author Organization [facility] Address [address] [place] [address] Care Team Providers Care Master Plumber Name Role Phone Wilmer Ludwig) MTano. Primary Care Prov ider Unavailable Encounter Details Date Type Department Care Team (Late st Contact Info) Description 11/12/2024 Anticoagulation [facility] [address] [place] [address] Yisel Hutchinson (Pharm.D), PHARM.D. [address] [place] [phone] Social History Tobacco Use Types Packs/Day Years [...] 4:19 PM PDT Primary care physician: Wilmer Lduwig) Left message on Preferred Phone Number: (1) CP [phone] -ok lm S/O: INR 3.5 (H) 11/12/2024 [...] [address] [phone] Melanie Osuna (N.P.), N.P. [address] [place] [address] documented as of this encounter Visit Diagnoses Not on filedocumented in this encounter Care Teams Master Plumber Relationship Specialty Start Date End Date Wilmer Ludwig), Richie [address] [phone] PCP - General Family Practice 01/10/14 documented as of this encounter
--- NOTE | 2024-12-10 11:12 | ED.GENADULT ---
HPI - General Adult General Chief complaint: Unspecified Complaint, Adult Stated complaint: Atrial Fibrillation- Blood test Time Seen by Provider: 12/10/24 11:07 History of Present Illness HPI narrative: Pt reports she is here to get her INR checked . Pt has [employer] insurance out of [place] and states they will only cover her routine testing while out of town if she goes through the ER. No other complaints, just wants INR checked. Pt declines standing weight in triage, states I don't need that. 79 year old woman presenting to the ER requesting an INR check. Has out of state insurance that is only covered through emergency department visits apparently. She has hoped to get standing orders for lab draws without having to incur all of the challenges an ER visit. Had connected with primary care provider but this has not been squared away yet. Was recently did have a visit for which she is describing as rather significant AFib with RVR; reports heart rate in the 180s. And so close monitoring is being done she reports. Is requesting than that this INR result be faxed to [place]. Otherwise feels well. Related Data Home Medications ?Medication ?Instructions ?Recorded ?Confirmed atorvastatin 10 mg tablet 10 mg PO QDAY 05/12/22 11/29/24 clonidine 0.1 mg/24 hr weekly 1 patch transdermal QWEEK 05/12/22 11/29/24 transdermal patch warfarin 2 mg tablet 2 mg PO QMWF 05/12/22 11/29/24 amiodarone 200 mg tablet 200 mg PO 11/22/24 carvedilol 12.5 mg tablet 12.5 mg PO BID 11/22/24 11/29/24 diltiazem HCl 120 mg 120 mg PO BID 11/22/24 11/29/24 capsule,extended release 24 hr nitrofurantoin 1 cap PO DAILY 11/29/24 11/29/24 monohydrate/macrocrystals 100 mg capsule furosemide 20 mg tablet 20 mg PO DAILY 12/10/24 12/10/24 Allergies Allergy/AdvReac Type Severity Reaction Status Date / Time aspirin (From Percodan) Allergy Intermediate really Verified 11/22/24 11:52 sick and pass out oxycodone (From Percodan) Allergy Intermediate really Verified 11/22/24 11:52 sick and pass out Penicillins Allergy Intermediate vomiting Verified 05/12/22 12:17 Sulfa (Sulfonamide Allergy Intermediate vomiting Verified 05/12/22 12:17 Antibiotics) Review of Systems Status of ROS: Reports: 6 or more systems reviewed and unremarkable except as noted in History and below [facility] Medical History Seasonal allergies ?J30.2 - Other seasonal allergic rhinitis (ICD-10) Social History Smoking Status: Never smoker How often do you have a drink containing alcohol: 2-4 times a month AUDIT-C Alcohol total score: 2 Non-prescribed substance use: denies use Exam Narrative: Exam Narrative: Pleasant. NAD. Carefully casually groomed. Breathing easily. Heart is in a regular rate. Mild lower extremity edema. Const: Vital Signs, click to edit/add: Vital Signs - 24 hr 12/10/24 10:42 Temperature 97.0 F L Pulse Rate [Pulse Oximeter] 61 Respiratory Rate 16 Blood Pressure [Ri ght Upper Arm] 155/75 H Pulse Oximetry 97 Oxygen Delivery Me thod Room Air Documenting provider has reviewed patient's vital signs: yes Course Vital Signs Vital signs: Initial Vital Signs Temperature 97.0 F L 12/10/24 10:42 Temperature Source Temporal Artery Scan 12/10/24 10:42 Pulse Rate 61 12/10/24 10:42 Respiratory Rate 16 12/10/24 10:42 Blood Pressure 155/75 H 12/10/24 10:42 Blood Pressure Mean 101 12/10/24 10:42 Blood Pressure Position Sitting 12/10/24 10:42 Pulse Oximetry 97 12/10/24 10:42 Oxygen Delivery Method Room Air 12/10/24 10:42 Vital Signs Temperature 97.0 F L 12/10/24 10:42 Pulse Rate 61 12/10/24 10:42 Respiratory Rate 16 12/10/24 10:42 Blood Pressure 155/75 H 12/10/24 10:42 Pulse Oximetry 97 12/10/24 10:42 Oxygen Delivery Method Room Air 12/10/24 10:42 Temperature 97.0 F L 12/10/24 10:42 Pulse Rate 61 12/10/24 10:42 Respiratory Rate 16 12/10/24 10:42 Blood Pressure 155/75 H 12/10/24 10:42 Pulse Oximetry 97 12/10/24 10:42 Oxygen Delivery Method Room Air 12/10/24 10:42 Medical Decision Making MDM Narrative Medical decision making narrative: I will check INR is requested. I would be nice if we could figure out another way to do this beyond ER visits. Did speak with ER director. I will message primary care as well. INR looks to be in goal at 2.06 -- I have informed Mrs. Belle faxed results to her clinic Medical Records Medical records reviewed: Yes I reviewed the patient's medical records Lab Data Lab results reviewed: Yes I reviewed the patient's lab results Labs: Lab Results 12/10/24 Range/Units 11:28 INR 2.06 H (0.91-1.10) Discharge Plan Discharge Clinical Impression: Anticoagulation monitoring, INR range 2-3 Patient Disposition: Home, Self-Care Condition: Stable Instructions: Blood Thinners (ED) Additional Instructions: I will call you to inform you of this result. You might also consider getting my chart to have access. We will fax this INR result to your labs as requested. Prescriptions: No Action warfarin 2 mg tablet 2 mg PO QMWF atorvastatin 10 mg tablet 10 mg PO QDAY clonidine 0.1 mg/24 hr patch weekly 1 patch transdermal QWEEK nitrofurantoin monohyd/m-cryst 100 mg capsule 1 cap PO DAILY carvedilol 12.5 mg tablet 12.5 mg PO BID amiodarone 200 mg tablet 200 mg PO diltiazem HCl 120 mg capsule,extended release 24hr 120 mg PO BID furosemide 20 mg tablet 20 mg PO DAILY Follow Up/Referrals: Bossman Garcia MD [Primary Care Provider, Internal Medicine] Stand Alone Forms: iSTAR Info Instructions
[2024-12-10 11:52] LABS: INR 2.06 (0.91-1.10); Prothrombin Time 24.3 Seconds
== END 2024-12-10 12:04 | disposition home or self-care (01) ==
PROVIDERS: Emergency Provider Family Medicine; PCP Internal Medicine
DX: I48.91 Unspecified atrial fibrillation (principal); Z79.01 Long term (current) use of anticoagulants
CPT/HCPCS: 36415; 85610; 99283

== ENCOUNTER 2024-12-28 12:24 | Emergency (ER) | payer OTHER, SELFPAY ==
--- OUTSIDE RECORDS SUMMARY | 2024-11-15 13:40 | XMS_ITS | Encounter Summary ---
Author Organization [facility] Address [address] [place] [address] Care Team Providers Care Laser Operator Name Role Phone Wilmer Ludwig) Richie Primary Care Prov ider Unavailable Reason for Visit * Reason Comments FOLLOW UP EXAM Encounter Details Date Type Department Care Team (Late st Contact Info) Description 11/15/2024 11:40 AM PDT Telephone Appointment Visit FAMILY PRACTICE [address] [place] [phone] Wilmer Ludwig), M.D. [address] [place] [address] ATRIAL FIBRILLATION, UNSPECIFIED (Primary Dx); HTN; HYPERLIPIDEMIA; PREDIABETES; OSTEOPOROSIS; ATHEROSCLEROSIS AORTA; OSTEOARTHRITIS OF LEFT KNEE; SENILE PURPURA; DIASTOLIC HEART FAILURE, CHRONIC (HFPEF); BILAT PRIMARY OPEN ANGLE GLAUCOMA; OSTEOARTHRITIS OF LEFT HIP; HX OF ND, UNSPECIFIED TYPE; CKD STAGE 3A (GFR 45-59); [...] up Seen card Melanie Osuna 11/06/2024 Recently [facility] and admitted fast heart rate. Had dual chamber pacemaker placed 05/2023 Currently in [place]. [place]. Staying for most summer. Did discuss with changing to pradaxa when back from [place]. Did talk with coumadin. BP Readings from [...] OSTEOARTHRITIS OF LEFT HIP I25.2 HX OF ND, UNSPECIFIED TYPE N18.31 CKD STAGE 3A (GFR [...] 10:00 AM PDT Office Visit CARDIOLOGY [address] [place] [phone] Melanie Osuna (N.P.), N[address]. [address] [place] [phone] 03/25/2025 9:30 AM PDT Orthopedic Office Visit ORTHOPEDICS [address] [place] [address] David Palacios M.D., MMagdalene [address] [place] [address] documented as of this encounter Visit Diagnoses Diagnosis ATRIAL FIBRILLATION, UNSPECIFIED- Primary ATRIAL FIBRILLATION HTN HYPERLIPIDEMIA PREDIABETES OSTEOPOROSIS ATHEROSCLEROSIS AORTA OSTEOARTHRITIS OF LEFT KNEE OSTEOARTHRITIS OF L KNEE SENILE PURPURA DIASTOLIC HEART FAILURE, CHRONIC (HFPEF) DIASTOLIC HEART FAILURE, CHRONIC BILAT PRIMARY OPEN ANGLE GLAUCOMA OSTEOARTHRITIS OF LEFT HIP OSTEOARTHRITIS OF L HIP HX OF ND, UNSPECIFIED TYPE CKD STAGE 3A (GFR 45-59) SUPRAVENTRICULAR TACHYCARDIA, NONSUSTAINED ANTICOAGULATION MONITORING, INR 2.0-3.0 ANEMIA documented in this encounter Care Teams Laser Operator Relationship Specialty Start Date End Date Wilmer Ludwig)Richie [address] [phone] PCP - General Family Practice 01/10/14 documented as of this encounter
--- OUTSIDE RECORDS SUMMARY | 2024-12-28 12:27 | XMS_ITS | Encounter Summary ---
Author Organization [facility] Address [address] [place] [address] Care Team Providers Care Engineering Intern Name Role Phone Wilmer Ludwig) Dilma. Primary Care Prov ider Unavailable Encounter Details Date Type Department Care Team (Late st Contact Info) Description 03/23/2021 Refill FAMILY PRACTICE [address] [place] [phone] Wilmer Ludwig), M.D. [address] [place] [address] Medications Social History Tobacco Use [...] PDT Office Visit CARDIOLOGY [address] [place] [address] Melanie Osuna (N.P.), N.P. [address] [place] [phone] 03/25/2025 9:30 AM PDT Orthopedic Office Visit ORTHOPEDICS [address] [place] [address] David Palacios), MMagdalene [address] [place] [address] documented as of this encounter Visit Diagnoses Diagnosis HTN (HYPERTENSION) HTN documented in this encounter Care Teams Engineering Intern Relationship Specialty Start Date End Date Wilmer Ludwig M.D., Dilma. [address] [phone] PCP - General Family Practice 01/10/14 documented as of this encounter
--- OUTSIDE RECORDS SUMMARY | 2024-12-28 12:27 | XMS_ITS | Encounter Summary ---
Author Organization [facility] Address [address] [place] [address] Care Team Providers Care Manager Resource Name Role Phone Wilmer Ludwig) Dilma. Primary Care Prov ider Unavailable Encounter Details Date Type Department Care Team (Late st Contact Info) Description 10/12/2022 Refill FAMILY PRACTICE [address] [place] [address] Wilmer Ludwig), M.D. [address] [place] [address] Medications Social History Tobacco Use Types [...] PDT Office Visit CARDIOLOGY [address] [phone] Melanie Osuna (N.P.), N.P. [address] [place] [phone] 03/25/2025 9:30 AM PDT Orthopedic Office Visit ORTHOPEDICS [address] [place] [address] David Palacios), MMagdalene [address] [place] [address] documented as of this encounter Visit Diagnoses Diagnosis ATRIAL FIBRILLATION, UNSPECIFIED ATRIAL FIBRILLATION documented in this encounter Care Teams Manager Resource Relationship Specialty Start Date End Date Wilmer Ludwig M.D., MTano. [address] [phone] PCP - General Family Practice 01/10/14 documented as of this encounter
--- OUTSIDE RECORDS SUMMARY | 2024-12-28 12:28 | XMS_ITS | Encounter Summary ---
Author Organization [facility] Address [address] [address] Care Team Providers Care Seafood Technology Specialist Name Role Phone Wilmer Ludwig) Richie Primary Care Prov ider Unavailable Encounter Details Date Type Department Care Team (Late st Contact Info) Description 05/03/2024 Orders Only SCAL IE E-VISITS ADMIN DEPT [address] [place] [address] Scal E-Visit, Provider (Richie)Richie [address] [place] [address] VACCINATION FOR SARS-COV-2 Social History Tobacco Use [...] AM PDT Office Visit CARDIOLOGY [address] [place] [address] Melanie Osuna (N.P.), N.P. [address] [place] [phone] 03/25/2025 9:30 AM PDT Orthopedic Office Visit ORTHOPEDICS [address] [place] [address] David Palacios), Richie [address] [place] [address] documented as of this encounter Visit Diagnoses Diagnosis VACCINATION FOR SARS-COV-2 documented in this encounter Care Teams Seafood Technology Specialist Relationship Specialty Start Date End Date Wilmer Ludwig M.D., Dilma. [address] [phone] PCP - General Family Practice 01/10/14 documented as of this encounter
--- OUTSIDE RECORDS SUMMARY | 2024-12-28 12:28 | XMS_ITS | Clinical Summary ---
Author Organization [facility] Address [address] [place] [address] Care Team Providers Care Assembler Small Products Name Role Phone Pcp, No Primary Care Provider Unavailabl e Allergies Active Allergy Reactions Criticality Noted Date Comments Cefuroxime Rash 06/08/2017 Codeine Hives 10/11/2012 Meperidine Hives 10/11/2012 Penicillins Hives 10/11/2012 Oxycodone-Acetaminophen Hives 10/11/2012 Oxycodone Jot-Lzflzmsbd-Kbv Hives 10/12/19 13 Sulfa (Sulfonamide Antibiotics) Hives [...] 0 11/14/2012 Active cloNIDine 0.1 mg/24 hr ([id number]-3 ) 0.1 mg/24 hr patch 11/13/2018 Active [...] Overview (12/06/2017): Overview: Renal ultrasound 11/02/12 from [place]: 1. Unable to see the origin of the left renal artery due to calcification. There are elevated velocities in the left renal artery suggestion a hemodynamically significant stenosis. If clinically indicated, an angiogram with intent to treat could be considered. 2. Normal ultrasound appearance of the kidneys, bilaterally. Cardiac MRI performed on 11/02/12 in [place]: indication: severe Hypertension with suspected severe concentric [...] Metoprolol changed to carvedilol 10/2012 while in [place] for uncontrolled Hypertension Start hydrochlorothiazide 12.5 mg [...] age to complete this topic Care Teams Assembler Small Products Relationship Specialty Start Date End Date Pcp, No . PCP - General 01/11/18
--- OUTSIDE RECORDS SUMMARY | 2024-12-28 12:28 | XMS_ITS | Encounter Summary ---
Author Organization [facility] Address [address] [place] [address] Care Team Providers Care Film Processing Utility Worker Name Role Phone Wilmer Ludwig) Dilma. Primary Care Prov ider Unavailable Encounter Details Date Type Department Care Team (Late st Contact Info) Description 12/06/2021 Refill FAMILY PRACTICE [address] [place] [phone] Wilmer Ludwig), M.D. [address] [place] [address] Medications Social History Tobacco Use Types [...] 10:00 AM PDT Office Visit CARDIOLOGY [address] [phone] Melanie Osuna (N.P.), N.P. [address] [place] [address] 03/25/2025 9:30 AM PDT Orthopedic Office Visit ORTHOPEDICS [address] [place] [address] David Palacios), MMagdalene [address] [place] [address] documented as of this encounter Visit Diagnoses Diagnosis HYPERLIPIDEMIA documented in this encounter Care Teams Film Processing Utility Worker Relationship Specialty Start Date End Date Wilmer Ludwig), M.D. [address] [phone] PCP - General Family Practice 01/10/14 documented as of this encounter
--- OUTSIDE RECORDS SUMMARY | 2024-12-28 12:28 | XMS_ITS | Encounter Summary ---
Author Organization [facility] Address [address] [place] [address] Care Team Providers Care Forklift Operator Name Role Phone Wilmer Ludwig) Richie Primary Care Prov ider Unavailable Encounter Details Date Type Department Care Team (Late st Contact Info) Description 05/11/2021 Home Care Visit DEFAULT [facility] [address] [address] Social History Tobacco Use Types [...] AM PDT Office Visit CARDIOLOGY [address] [place] [phone] Melanie Osuna (N.P.), N.P. [address] [place] [address] 03/25/2025 9:30 AM PDT Orthopedic Office Visit ORTHOPEDICS [address] [place] [address] David Palacios), M.Charbel [address] [place] [address] documented as of this encounter [...] Yes documented in this encounter Care Teams Forklift Operator Relationship Specialty Start Date End Date Wilmer Ludwig), Richie [address] [phone] PCP - General Family Practice 01/10/14 documented as of this encounter
--- OUTSIDE RECORDS SUMMARY | 2024-12-28 12:28 | XMS_ITS | Encounter Summary ---
Author Organization [facility] Address [address] [place] [place] [address] Care Team Providers Care Translation Director Name Role Phone Wilmer Ludwig) Dilma. Primary Care Prov ider Unavailable Encounter Details Date Type Department Care Team (Late st Contact Info) Description 12/30/2022 Refill FAMILY PRACTICE [address] [place] [phone] Wilmer Ludwig), M.D. [address] [place] [address] Medications Social History Tobacco Use [...] PDT Office Visit CARDIOLOGY [address] [phone] Melanie Osuna (N.P.), N.P. [address] [place] [address] 03/25/2025 9:30 AM PDT Orthopedic Office Visit ORTHOPEDICS [address] [place] [address] David Palacios), Richie [address] [place] [address] documented as of this encounter Visit Diagnoses Diagnosis HTN documented in this encounter Care Teams Translation Director Relationship Specialty Start Date End Date Wilmer Ludwig M.D., Dilma. [address] [place] [phone] PCP - General Family Practice 01/10/14 documented as of this encounter
--- OUTSIDE RECORDS SUMMARY | 2024-12-28 12:28 | XMS_ITS | Encounter Summary ---
Author Organization [facility] Address [address] [facility] [place] [address] Care Team Providers Care Air Brake Operator Name Role Phone Wilmer Ludwig) Richie Primary Care Prov ider Unavailable Encounter Details Date Type Department Care Team (Late st Contact Info) Description 05/08/2021 Home Care Visit DEFAULT HOME [address] [address] Social History Tobacco Use Types [...] AM PDT Office Visit CARDIOLOGY [address] [place] [phone] Melanie Osuna (N.P.), N.P. [address] [place] [phone] 03/25/2025 9:30 AM PDT Orthopedic Office Visit ORTHOPEDICS [address] [place] [address] David Palacios), [place] [address] [place] [address] documented as of this encounter Visit Diagnoses Not on filedocumented in this encounter Care Teams Air Brake Operator Relationship Specialty Start Date End Date Wilmer Ludwig), MLamarD. [address] [phone] PCP - General Family Practice 01/10/14 documented as of this encounter
--- OUTSIDE RECORDS SUMMARY | 2024-12-28 12:28 | XMS_ITS | Encounter Summary ---
Author Organization [facility] Address [address] [facility] [place] [address] Care Team Providers Care Hardware Installation Coordinator Name Role Phone Wilmer Luwdig) Richie Primary Care Prov ider Unavailable Encounter Details Date Type Department Care Team (Late st Contact Info) Description 05/01/2021 Home Care Visit DEFAULT HOME [address] [phone] Social History Tobacco Use Types [...] AM PDT Office Visit CARDIOLOGY [address] [place] [phone] Melanie Osuna (N.P.), N.P. [address] [place] [phone] 03/25/2025 9:30 AM PDT Orthopedic Office Visit ORTHOPEDICS [address] [place] [address] David Palacios), M.D. [address] [place] [address] documented as of this encounter Visit Diagnoses Not on filedocumented in this encounter Care Teams Hardware Installation Coordinator Relationship Specialty Start Date End Date Wilmer Ludwig), MLamarD. [address] [address] PCP - General Family Practice 01/10/14 documented as of this encounter
--- OUTSIDE RECORDS SUMMARY | 2024-12-28 12:28 | XMS_ITS | Encounter Summary ---
Author Organization [facility] Address [address] [facility] [place] [address] Care Team Providers Care Mri Assistant Name Role Phone Wilmer Ludwig) Richie Primary Care Prov ider Unavailable Encounter Details Date Type Department Care Team (Late st Contact Info) Description 05/12/2022 Orders Only SCAL IE E-VISITS ADMIN DEPT [address] [place] [address] Scal E-Visit, Provider (Richie)Richie [address] [place] [address] VACCINATION FOR SARS-COV-2 Social History Tobacco Use [...] AM PDT Office Visit CARDIOLOGY [address] [place] [address] Melanie Osuna (N.P.), N.P. [address] [place] [address] 03/25/2025 9:30 AM PDT Orthopedic Office Visit ORTHOPEDICS [address] [place] [address] David Palacios), Richie [address] [place] [address] documented as of this encounter Visit Diagnoses Diagnosis VACCINATION FOR SARS-COV-2 documented in this encounter Care Teams Mri Assistant Relationship Specialty Start Date End Date Wilmer Ludwig M.D., M.D. [address] [address] PCP - General Family Practice 01/10/14 documented as of this encounter
--- OUTSIDE RECORDS SUMMARY | 2024-12-28 12:28 | XMS_ITS | Encounter Summary ---
Author Organization [facility] Address [address] [facility] [place] [address] Care Team Providers Care Front End Assistant Name Role Phone Wilmer Ludwig) Richie Primary Care Prov ider Unavailable Encounter Details Date Type Department Care Team (Late st Contact Info) Description 05/11/2021 Home Care Visit DEFAULT HOME [address] [phone] Social History Tobacco Use Types [...] AM PDT Office Visit CARDIOLOGY [address] [place] [phone] Melanie Osuna (N.P.), N.P. [address] [place] [phone] 03/25/2025 9:30 AM PDT Orthopedic Office Visit ORTHOPEDICS [address] [place] [address] David Palacios), M.D. [address] [place] [address] documented as of this encounter Visit Diagnoses Not on filedocumented in this encounter Care Teams Front End Assistant Relationship Specialty Start Date End Date Wilmer Ludwig), MLamarD. [address] [address] PCP - General Family Practice 01/10/14 documented as of this encounter
--- OUTSIDE RECORDS SUMMARY | 2024-12-28 12:28 | XMS_ITS | Encounter Summary ---
Author Organization [facility] Address [address] [place] [address] Care Team Providers Care Manager Medical Affairs Name Role Phone Wilmer Ludwig) Richie Primary Care Prov ider Unavailable Encounter Details Date Type Department Care Team (Late st Contact Info) Description 12/13/2024 Anticoagulation DEFAULT [facility] [address] [place] [address] Noah Dill (Pharm.D), PHARM.D. [address] [place] [phone] Social History Tobacco Use Types Packs/Day Years [...] Notes * Juventino Hutchinson (Pharm.D), PHARM.D. - 12/27/2024 2:41 PM PDT No outside INR result received. Route to clerical administrative assistant to verify if patient went to outside lab for INR. Please request result to be faxed if INR was done, or remind patient to RTL if INR was not done. Electronically signed by: Juventino Hutchinson Pharm.D. Christian Education Director Pharmacist 12/27/2024 2:42 PM * Noah Dill.Diamond, KIMBERLY - 12/13/2024 4:32 PM PDT Primary care physician: Wilmer Ludwig (Richie) Spoke with patient S/O: Patient: Confirmed dose/tablet strength Denied missed doses Denied changes in medications (Both prescriptions and OTC such as herbals, vitamins, nutritional supplements) Denied significant changes in diet, appetite, alcohol intake, or physical activity level Denied significant changes in health or recent hospital admissions Denied recent falls or injuries Denied signs and symptoms of bleeding or bruising Denied upcoming invasive procedures INR 2.06 12/10/2024 Indications: Atrial Fibrillation (I48.91) INR Low Range: 2 - INR High Range: 3 Warfarin Tab (MG): 2mg Lavender A/P: INR: within therapeutic range Warfarin Dosing Instructions: 2mg daily exc 1mg Mon/Fri Follow up date: 12/26/24 Confirmed patient???s understanding of warfarin instruction by [...] clotting/stroke. Electronically signed by: NOAH DILL PHARMFamilia 12/13/2024 4:41 PM documented in this encounter Nursing Notes * Ml Amato - 12/27/2024 4:07 PM PDT Lab reminder call x1, Patient states she was told 12/29 for iNR she will go then Electronically signed by Ml Amato Wind Instrument Repairer 12/27/2024 4:07 PM documented in this encounter Plan of Treatment Upcoming Encounters Date Type Department Care Team (Late st Contact Info) Description 03/05/2025 10:00 AM PDT Office Visit CARDIOLOGY [address] [phone] Melanie Osuna (N.P.), N.P. [address] [place] [phone] 03/25/2025 9:30 AM PDT Orthopedic Office Visit ORTHOPEDICS [address] [place] [address] David Palacios), M.D. [address] [place] [address] documented as of this encounter Visit Diagnoses Not on filedocumented in this encounter Care Teams Manager Medical Affairs Relationship Specialty Start Date End Date Wilmer Ludwig), M.D. [address] [address] PCP - General Family Practice 01/10/14 documented as of this encounter
--- OUTSIDE RECORDS SUMMARY | 2024-12-28 12:28 | XMS_ITS | Encounter Summary ---
Author Organization [facility] Address [address] [place] [address] Care Team Providers Care Corporate Logistics Manager Name Role Phone Wilmer Ludwig) Richie Primary Care Prov ider Unavailable Encounter Details Date Type Department Care Team (Late st Contact Info) Description 05/08/2021 Home Care Visit DEFAULT [facility] [address] [phone] Social History Tobacco Use [...] AM PDT Office Visit CARDIOLOGY [address] [place] [phone] Melanie Osuna (N.P.), N.P. [address] [place] [address] 03/25/2025 9:30 AM PDT Orthopedic Office Visit ORTHOPEDICS [address] [place] [address] David Palacios), M.Charbel [address] [place] [address] documented as of this encounter [...] Endurance Description: Physical Therapist and Phyiscal Therapist Ferry Terminal Supervisor to perform ansd instruct a strengthening program. [...] Yes documented in this encounter Care Teams Corporate Logistics Manager Relationship Specialty Start Date End Date Wilmer Ludwig), Richie [address] [address] PCP - General Family Practice 01/10/14 documented as of this encounter
--- OUTSIDE RECORDS SUMMARY | 2024-12-28 12:28 | XMS_ITS | Encounter Summary ---
Author Organization [facility] Address [address] [place] [address] Care Team Providers Care Metallography Teacher Name Role Phone Wilmer Ludwig) Richie Primary Care Prov ider Unavailable Encounter Details Date Type Department Care Team (Late st Contact Info) Description 04/28/2021 Home Care Visit DEFAULT [facility] [address] [address] Social History Tobacco Use Types [...] PDT Office Visit CARDIOLOGY [address] [phone] Melanie Osuna (N.P.), N.P. [address] [place] [phone] 03/25/2025 9:30 AM PDT Orthopedic Office Visit ORTHOPEDICS [address] [place] [address] David Palacios), M.DLamar [address] [place] [address] documented as of this encounter Visit Diagnoses Not on filedocumented in this encounter Care Teams Metallography Teacher Relationship Specialty Start Date End Date Wilmer Ludwig), MTano. [address] [address] PCP - General Family Practice 01/10/14 documented as of this encounter
--- OUTSIDE RECORDS SUMMARY | 2024-12-28 12:28 | XMS_ITS | Encounter Summary ---
Author Organization [facility] Address [address] [facility] [place] [address] Care Team Providers Care Laboratory Technical Specialist Name Role Phone Wilmer Ludwig) Richie Primary Care Prov ider Unavailable Encounter Details Date Type Department Care Team (Late st Contact Info) Description 04/28/2021 Home Care Visit DEFAULT HOME [address] [phone] Social History Tobacco Use Types [...] AM PDT Office Visit CARDIOLOGY [address] [place] [phone] Melanie Osuna (N.P.), N.P. [address] [place] [phone] 03/25/2025 9:30 AM PDT Orthopedic Office Visit ORTHOPEDICS [address] [place] [address] David Palacios), M.D. [address] [place] [address] documented as of this encounter Visit Diagnoses Not on filedocumented in this encounter Care Teams Laboratory Technical Specialist Relationship Specialty Start Date End Date Wilmer Ludwig), MLamarD. [address] [address] PCP - General Family Practice 01/10/14 documented as of this encounter
--- OUTSIDE RECORDS SUMMARY | 2024-12-28 12:28 | XMS_ITS | Encounter Summary ---
Author Organization [facility] Address [address] [place] [address] Care Team Providers Care Umbrella Cutter Name Role Phone Wilmer Ludwig) Dilma. Primary Care Prov ider Unavailable Encounter Details Date Type Department Care Team (Late st Contact Info) Description 10/04/2023 Refill FAMILY PRACTICE [address] [place] [phone] Wilmer Ludwig), MLamarD. [address] [place] [address] Medications Social History Tobacco Use [...] PDT Office Visit CARDIOLOGY [address] [phone] Mealnie Osuna (N.P.), N.P. [address] [place] [address] 03/25/2025 9:30 AM PDT Orthopedic Office Visit ORTHOPEDICS [address] [place] [address] David Palacios), Richie [address] [place] [address] documented as of this encounter Visit Diagnoses Diagnosis HTN documented in this encounter Care Teams Umbrella Cutter Relationship Specialty Start Date End Date Wilmer Ludwig M.D., Dilma. [address] [place] [address] PCP - General Family Practice 01/10/14 documented as of this encounter
--- OUTSIDE RECORDS SUMMARY | 2024-12-28 12:28 | XMS_ITS | Encounter Summary ---
Author Organization [facility] Address [address] [facility] [place] [address] Care Team Providers Care Foreman/Project Manager Name Role Phone Wilmer Ludwig) Richie Primary Care Prov ider Unavailable Encounter Details Date Type Department Care Team (Late st Contact Info) Description 04/29/2021 Home Care Visit DEFAULT HOME [address] [phone] Social History Tobacco Use Types [...] AM PDT Office Visit CARDIOLOGY [address] [place] [phone] Melanie Osuna (N.P.), N.P. [address] [place] [phone] 03/25/2025 9:30 AM PDT Orthopedic Office Visit ORTHOPEDICS [address] [place] [address] David Palacios), M.D. [address] [place] [address] documented as of this encounter Visit Diagnoses Not on filedocumented in this encounter Care Teams Foreman/Project Manager Relationship Specialty Start Date End Date Wilmer Ludwig), MLamarD. [address] [address] PCP - General Family Practice 01/10/14 documented as of this encounter
--- OUTSIDE RECORDS SUMMARY | 2024-12-28 12:28 | XMS_ITS | Encounter Summary ---
Author Organization [facility] Address [address] [place] [address] Care Team Providers Care Human Resource Analyst Name Role Phone Wilmer Ludwig) Richie Primary Care Prov ider Unavailable Encounter Details Date Type Department Care Team (Late st Contact Info) Description 11/27/2024 Anticoagulation DEFAULT [facility] [address] [place] [address] Juventino Hutchinson (Pharm.D), PHARM.D. [address] [place] [phone] Social History Tobacco Use Types Packs/Day Years [...] Notes * Juventino Hutchinson (Pharm.D), PHARM.D. - 12/12/2024 3:40 PM PDT Route to asst to call [facility] [phone] to request INR result to be faxed. Electronically signed by: Juventino Hutchinson Pharm.D. Food Beverage Server Pharmacist 12/12/2024 3:40 PM * Juventino HutchinsonPharm.D) PHARM.DLamar - 12/12/2024 12:17 PM PDT No INR result received. Route to hair assistant to make lab reminder call - please verify if patient went to outside lab. Electronically signed by: Juventino Hutchinson Pharm.D. Food Beverage Server Pharmacist 12/12/2024 12:17 PM * Noah DillPharm.D) PHARM.DLamar - 12/06/2024 4:36 PM PDT No INR in process. Will have hair assistant remind patient to return to lab for INR test TIM. Electronically signed by: NOAH DILL PHARMFamilia 12/06/2024 4:36 PM * Juventino HutchinsonPharm.D), PHARM.DLamar - 11/27/2024 3:33 PM PDT Primary Care Physician: Wilmer Ludwig) S/O: Instructed Anticoagulation Medical Information Specialist/Trimmer Climber to call patient to check if patient [...] Lavender A/P: INR within therapeutic range Instruct hair assistant to give the following instructions: Warfarin Dosing Instructions: continue 2mg daily exc 1mg Mon/Fri (same as 1 tablet daily exc 1/2 tablet Mon/Fri) Follow up date: 12/06/24 Assistant Account Executive/Trimmer Climber to confirm patient???s understanding of warfarin instruction and ask to repeatback the instruction. Electronically signed by: JUVENTINO HUTCHINSON PHARMFamilia 11/27/2024 3:35 PM documented in this encounter Nursing Notes * Perlita Marti - 12/13/2024 4:17 PM PDT [facility] faxed over patient inr results 2.06 Forwarded to Pharm.D to address. Electronically signed by: PERLITA MARTI 12/13/2024 4:23 PM * Perlita Marti - 12/13/2024 3:17 PM PDT Spoke with ED charge nurse and she will fax over this one time. She stated they typically do not fax over results and they hand over her paper results to patient. My suggestion to patient is take a picture on cell phone of results and send message through [employer] eulalia to Pharm D in future Electronically signed by: PERLITA MARTI 12/13/2024 3:23 PM * Perlita Marti - 12/12/2024 12:25 PM PDT SPOKE WITH PATIENT AND SHE STATED SHE WENT TO [facility] ON 12/10 OR 12/11 AND THEY DID HER INR THEN AND IT WAS 2.1 THEY WERE TO FAX OVER PAPER WORK BUT WE NEVER RECEIVED IT. Forwarded to Pharm.D to address. Electronically signed by: PERLITA MARTI 12/12/2024 12:27 PM * Sourav Amato - 12/09/2024 12:08 PM PDT Lab reminder call x1, [phone] Patient states She will go get one done Electronically signed by Sourav Amato Head Swamper 12/09/2024 12:08 PM * Sourav Amato - [...] 12/06/24 . Electronically signed by SOURAV AMATO Head Swamper 11/27/2024 4:15 PM documented in this encounter Plan of Treatment Upcoming Encounters Date Type Department Care Team (Late st Contact Info) Description 03/05/2025 10:00 AM PDT Office Visit CARDIOLOGY [address] [place] [phone] Melanie Osuna (N.P.), N.P. [address] [place] [address] 03/25/2025 9:30 AM PDT Orthopedic Office Visit ORTHOPEDICS [address] [place] [address] David Palacios), M.D. [address] [place] [address] documented as of this encounter Procedures Procedure Name Priority Date/Time Associated Diagnosis Comments INR, FINGER STICK, POCT Routine 12/10/2024 11:28 AM PDT documented in this encounter Results * INR, FINGER STICK, POCT (12/10/2024 11:28 AM PDT) PT INR 2.06 Comment:[address] [id number] BLOOD 12/10/2024 11:2 8 AM PDT Juventino (Pharm.D) Jasper PHARM.DLamar POCT documented in this encounter Visit Diagnoses Not on filedocumented in this encounter Care Teams Human Resource Analyst Relationship Specialty Start Date End Date Wilmer Ludwig), M.D. [address] [address] PCP - General Family Practice 01/10/14 documented as of this encounter
--- OUTSIDE RECORDS SUMMARY | 2024-12-28 12:28 | XMS_ITS | Encounter Summary ---
Author Organization [facility] Address [address] [facility] [place] [address] Care Team Providers Care Assistant Statistician Name Role Phone Unavailable Primary Care Provider Unavailabl e Prior Encounters Date Type Department Care Team Description 11/16/2023 Travel 11/16/2023 10:00 AM PDT Office Visit [facility] [address] [place] [address] Citlalli Wall [facility] 08/08/2023 Travel 08/08/2023 10:00 AM PST Office Visit [facility] [address] [place] [address] Zeeshan Cartwright DDS 07/22/2019 Converted 13x Documents [facility] [address] [place] [address] <No scans attached> 07/22/2019 Converted CPS Chart Documents [facility] [address] [place] [phone] <No scans attached> Plan of Treatment Not [...] 10 ENDODONTIC THERAPY, PREMOLAR TOOTH (EXCLUDING FINAL ORTHODOX) Routine 03/08/2013 12:00 AM PDT 8 ENDODONTIC THERAPY, PREMOLAR TOOTH (EXCLUDING FINAL ORTHODOX) Routine 03/08/2013 12:00 AM PDT 5 ENDODONTIC THERAPY, PREMOLAR TOOTH (EXCLUDING FINAL ORTHODOX) Routine 03/08/2013 12:00 AM PDT 4 ENDODONTIC THERAPY, PREMOLAR TOOTH (EXCLUDING FINAL ORTHODOX) Routine 03/08/2013 12:00 AM PDT 29 ENDODONTIC THERAPY, PREMOLAR TOOTH (EXCLUDING FINAL ORTHODOX) Routine 03/08/2013 12:00 AM PDT 29 CROWN [...] PDT Visit Diagnoses Not on file Insurance [facility]
--- OUTSIDE RECORDS SUMMARY | 2024-12-28 12:28 | XMS_ITS | Encounter Summary ---
Author Organization [facility] Address [address] [facility] [place] [address] Care Team Providers Care Freight Rate Specialist Name Role Phone Wilmer Ludwig) Richie Primary Care Prov ider Unavailable Encounter Details Date Type Department Care Team (Late st Contact Info) Description 05/04/2021 Home Care Visit DEFAULT HOME [address] [phone] Social History Tobacco Use Types [...] AM PDT Office Visit CARDIOLOGY [address] [place] [phone] Melanie Osuna (N.P.), N.P. [address] [place] [phone] 03/25/2025 9:30 AM PDT Orthopedic Office Visit ORTHOPEDICS [address] [place] [address] David Palacios), [place]. [address] [place] [address] documented as of this encounter Visit Diagnoses Not on filedocumented in this encounter Care Teams Freight Rate Specialist Relationship Specialty Start Date End Date Wilmer Ludwig), MLamarD. [address] [address] PCP - General Family Practice 01/10/14 documented as of this encounter
--- OUTSIDE RECORDS SUMMARY | 2024-12-28 12:28 | XMS_ITS | Encounter Summary ---
Author Organization [facility] Address [address] [place] [address] Care Team Providers Care Child Nutrition Assistant Name Role Phone Wilmer Ludwig) Richie Primary Care Prov ider Unavailable Encounter Details Date Type Department Care Team (Late st Contact Info) Description 05/01/2021 Home Care Visit DEFAULT [facility] [address] [address] Social History Tobacco Use Types [...] PDT Office Visit CARDIOLOGY [address] [phone] Melanie Osuna (N.P.), N.P. [address] [place] [phone] 03/25/2025 9:30 AM PDT Orthopedic Office Visit ORTHOPEDICS [address] [place] [address] David Palacios), M.DLamar [address] [place] [address] documented as of this encounter Visit Diagnoses Not on filedocumented in this encounter Care Teams Child Nutrition Assistant Relationship Specialty Start Date End Date Wilmer Ludwig), MTano. [address] [address] PCP - General Family Practice 01/10/14 documented as of this encounter
--- OUTSIDE RECORDS SUMMARY | 2024-12-28 12:28 | XMS_ITS | Clinical Summary ---
Author Organization [facility] Health Address [address] [place] [address] Care Team Providers Care Pensions Retirement Plan Specialist Name Role Phone Unavailable Primary Care Provider Unavailabl e Allergies Active Allergy Reactions Criticality Noted Date Comments Cefuroxime Rash Low 06/08/2017 Noted with antibiotics given in [place]. Hydrochlorothiazide 12/19/2013 Hyponatremia in setting of HCTZ Meperidine Hives High 08/29/2011 Nsaids (Non-Steroidal Anti-Inflammatory Drug) High 02/24/2017 [id number] Heart Failure. Exception to this NSAID intolerance is aspirin 81-325mg daily and topical or ophthalmic nsaids' Opioids - Morphine Analogues Hives 012 Oxycodone Xsb-Keepjqcwo-Oxh Hives 10/12/19 13 Oxycodone-Acetaminophen Hives 07/22/2011 Penicillins [...] as directed by Anticoagulation clinic 12/21/19 23 Active Active Problems Problem Noted Date Diagnosed [...] Overview (08/08/2023): Overview: Renal ultrasound 11/02/12 from [place]: 1. Unable to see the origin of the left renal artery due to calcification. There are elevated velocities in the left renal artery suggestion a hemodynamically significant stenosis. If clinically indicated, an angiogram with intent to treat could be considered. 2. Normal ultrasound appearance of the kidneys, bilaterally. Cardiac MRI performed on 11/02/12 in [place]: indication: severe Hypertension with suspected severe concentric [...] renal artery stenosis. Renal ultrasound 11/02/12 from [place]: 1. Unable to see the origin of the left renal artery due to calcification. There are elevated velocities in the left renal artery suggestion a hemodynamically significant stenosis. If clinically indicated, an angiogram with intent to treat could be considered. 2. Normal ultrasound appearance of the kidneys, bilaterally. Cardiac MRI performed on 11/02/12 in [place]: indication: severe Hypertension with suspected severe concentric [...] Periodontal Maintenance 1944 Dental X-Ray: Panoramic 12/11/2023 12/09/2020, 05/05, 03/08/2013 Velscope Screening 02/06/2024 08/08/2023 Dental Oral Exam 02/07/2024 08/08/2023, 05/05/2020, 03/08/2013 Dental X-Ray: Bitewings 02/07/2024 08/08/2023 Scaling and Root Planing 11/29/2025 024, 11/16/2023, 11/16/2023, Additional history exists Dental CBCT 08/08/2026 08/08/2023 Dental X-Ray: Full Mouth 08/10/2026 08/09/2023, 0212/2023, 03/08/2013 Procedures Procedure Name Priority Date/Time Associated Diagnosis [...] Most Recently Relevant to Health Maintenance Insurance [facility]
--- OUTSIDE RECORDS SUMMARY | 2024-12-28 12:28 | XMS_ITS | Encounter Summary ---
Author Organization [facility] Address [address] [place] [address] Care Team Providers Care Eclectic Doctor Name Role Phone Wilmer Ludwig) Dilma. Primary Care Prov ider Unavailable Encounter Details Date Type Department Care Team (Late st Contact Info) Description 01/10/2023 Refill FAMILY PRACTICE [address] [place] [address] Wilmer Ludwig), M.D. [address] [place] [address] Medications Social History Tobacco Use [...] PDT Office Visit CARDIOLOGY [address] [phone] Melanie Osuna (N.P.), N.P. [address] [place] [address] 03/25/2025 9:30 AM PDT Orthopedic Office Visit ORTHOPEDICS [address] [place] [address] David Palacios), Richie [address] [place] [address] documented as of this encounter Visit Diagnoses Diagnosis HYPERLIPIDEMIA documented in this encounter Care Teams Eclectic Doctor Relationship Specialty Start Date End Date Wilmer Ludwig M.D., Dilma. [address] [place] [address] PCP - General Family Practice 01/10/14 documented as of this encounter
--- OUTSIDE RECORDS SUMMARY | 2024-12-28 12:28 | XMS_ITS | Encounter Summary ---
Author Organization [facility] Address [address] [place] [address] Care Team Providers Care Handbag Frames Inspector Name Role Phone Wilmer Ludwig) Richie Primary Care Prov ider Unavailable Encounter Details Date Type Department Care Team ([facility] Contact Info) Description 04/29/2021 Home Care Visit DEFAULT [facility] [address] [address] Social History Tobacco Use Types [...] [address] [phone] Melanie Osuna (N.P.), N.P. [address] [place] [phone] 03/25/2025 9:30 AM PDT Orthopedic Office Visit ORTHOPEDICS [address] [place] [address] David Palacios), M.D. [address] [place] [address] documented as of this encounter Visit Diagnoses Not on filedocumented in this encounter Care Teams Handbag Frames Inspector Relationship Specialty Start Date End Date Wilmer Ludwig), M.D. [address] [phone] PCP - General Family Practice 01/10/14 documented as of this encounter
--- OUTSIDE RECORDS SUMMARY | 2024-12-28 12:28 | XMS_ITS | Encounter Summary ---
Author Organization [facility] Address [address] [place] [address] Care Team Providers Care Shed Workers Supervisor Name Role Phone Wilmer Ludwig) Richie Primary Care Prov ider Unavailable Encounter Details Date Type Department Care Team (Late st Contact Info) Description 04/21/2021 Orders Only FAMILY MEDICINE CV19 VACCINE [id number] [phone] Scal E-Visit, Provider Fabian)Richie [address] [place] [address] VACCINATION FOR SARS-COV-2 Social History Tobacco Use [...] PDT Office Visit CARDIOLOGY [address] [place] [address] Melanie Osuna (N.P.), N.P. [address] [place] [address] 03/25/2025 9:30 AM PDT Orthopedic Office Visit ORTHOPEDICS [address] [place] [address] David Palacios), Richie [address] [place] [address] documented as of this encounter Visit Diagnoses Diagnosis VACCINATION FOR SARS-COV-2 documented in this encounter Care Teams Shed Workers Supervisor Relationship Specialty Start Date End Date Wilmer Ludwig), Dilma. [address] [place] [address] PCP - General Family Practice 01/10/14 documented as of this encounter
--- OUTSIDE RECORDS SUMMARY | 2024-12-28 12:28 | XMS_ITS | Encounter Summary ---
Author Organization [facility] Address [address] [place] [address] Care Team Providers Care Receiving Teller Name Role Phone Wilmer Ludwig) Richie Primary Care Prov ider Unavailable Encounter Details Date Type Department Care Team ([facility] Contact Info) Description 05/04/2021 Home Care Visit DEFAULT [facility] [address] [address] Social History Tobacco Use Types [...] [address] [phone] Melanie Osuna (N.P.), N.P. [address] [place] [phone] 03/25/2025 9:30 AM PDT Orthopedic Office Visit ORTHOPEDICS [address] [place] [address] David Palacios), M.D. [address] [place] [address] documented as of this encounter Visit Diagnoses Not on filedocumented in this encounter Care Teams Receiving Teller Relationship Specialty Start Date End Date Wilmer Ludwig), M.D. [address] [phone] PCP - General Family Practice 01/10/14 documented as of this encounter
--- OUTSIDE RECORDS SUMMARY | 2024-12-28 12:29 | XMS_ITS | Clinical Summary ---
Author Organization [facility] Address [address] [place] [address] Care Team Providers Care Human Resources Assistant Manager Name Role Phone Wilmer Ludwig M.D., M.D. Primary Care Prov ider Unavailable Source Comments NOTE: The information displayed by Care Everywhere is extracted from the complete medical record and may not identify all current or past patient conditions.[facility] Allergies Active Allergy Reactions Criticality Noted Date Comments Cefuroxime Axetil Skin Rash and/or Hives Low 06/08/2017 [place]ed [place]. [place]ed with [place]. Codeine And Opiate Derivatives Skin Rash and/or Hives 07/22/2011 Meperidine Hcl High 08/29/2011 Metronidazole Other 10/20/2024 Nausea, GI upset Hydrochlorothiazide 12/19/2013 Hyponatremia in setting of HCTZ Hyponatremia in setting of HCTZ Meperidine Skin Rash and/or Hives High 08/29/2011 Non-Steroidal Anti-Inflammatory Agents High 02/24/2017 [id number] Heart Failure. Exception to this NSAID intolerance is aspirin 81-325mg daily and topical or ophthalmic nsaids' [id number] Heart Failure. Exception to this NSAID intolerance [...] Active Problems Problem Noted Date Diagnosed Date DIRECTOR OF PHARMACY AMIODARONE THERAPY 11/16/2024 SUPRAVENTRICULAR TACHYCARDIA, NONSUSTAINED 10/14 OSTEOARTHRITIS OF RIGHT HIP 08/08/2024 ACQUIRED CEREBRAL ATROPHY 06/20/2023 Overview (06/20/2023): CT Head 05/24/16 OSTEOARTHRITIS OF LEFT FOOT 04/25/2023 ATYPICAL CHEST PAIN 08/26/2022 SHORTNESS OF BREATH 08/26/2022 BILAT OPEN ANGLE GLAUCOMA 08/12/2022 RECURRENT UTI 08/05/2021 ANEMIA 11/06/2020 OSTEOARTHRITIS OF RIGHT FOOT 2020 HX OF [place], UNSPECIFIED TYPE 08/14/2019 NOT CURRENT SMOKER 04/11/2018 [...] 01/04/2013 Overview (01/04/2013): Renal ultrasound 11/02/12 from [place]: 1. Unable to see the origin of the left renal artery due to calcification. There are elevated velocities in the left renal artery suggestion a hemodynamically significant stenosis. If clinically indicated, an angiogram with intent to treat could be considered. 2. Normal ultrasound appearance of the kidneys, bilaterally. Cardiac MRI performed on 11/02/12 in [place]: indication: severe Hypertension with suspected severe concentric [...] Encounters Date Type Department Care Team Description 12/13/2024 Anticoagulation DEFAULT [facility] [address] [place] [address] Noah Dill (Pharm.D), PHARM.D. 11/27/2024 Anticoagulation [facility] [address] [place] [address] Juventino Hutchinson (Pharm.D), PHARM.D. 11/21/2024 Anticoagulation [facility] [address] [place] [address] Noah Dill (Pharm.D), PHARM.D. 11/15/2024 11:40 AM PDT Telephone Appointment Visit FAMILY PRACTICE [address] [place] [address] Wilmer Ludwig), MTano. ATRIAL FIBRILLATION, UNSPECIFIED (Primary Dx); HTN; HYPERLIPIDEMIA; PREDIABETES; OSTEOPOROSIS; ATHEROSCLEROSIS AORTA; OSTEOARTHRITIS OF LEFT KNEE; SENILE PURPURA; DIASTOLIC HEART FAILURE, CHRONIC (HFPEF); BILAT PRIMARY OPEN ANGLE GLAUCOMA; OSTEOARTHRITIS OF LEFT HIP; HX OF [place], UNSPECIFIED TYPE; CKD STAGE 3A (GFR 45-59); SUPRAVENTRICULAR TACHYCARDIA, NONSUSTAINED; ANTICOAGULATION MONITORING, INR 2.0-3.0; ANEMIA 11/12/2024 Anticoagulation DEFAULT [place] [address] Juventino Hutchinson (Pharm.D), PHARM.D. 11/06/2024 3:00 PM PDT Office Visit CARDIOLOGY [address] [place] [address] Melanie Osuna (N.P.), N.P. ATRIAL FIBRILLATION, PAROXYSMAL; HTN; HYPERLIPIDEMIA; PRESENCE OF CARDIAC PACEMAKER 11/05/2024 Anticoagulation DEFAULT [place] [address] Noah Dill (Pharm.D), PHARM.D. 11/04/2024 Telephone [facility]ILY PRACTICE [address] [place] [address] Wilmer Ludwig), MTano. TEST RESULTS 11/01/2024 Call Center Telephon e Encounter CARDIOLOGY [facility] [place] [address] Francheska Lares M.D., MTano. APPOINTMENT REQUEST, ROUTINE ([facility], CARDIOLOGY) 10/30/2024 Anticoagulation DEFAULT [facility] [address] [place] [address] Noah Dill (Pharm.D), PHARM.D. 10/30/2024 Telephone FAMILY PRACTICE [address] [place] [address] Tessy Kerr), M.D. 10/29/2024 Telephone [facility] [place] [place] [address] Shante Anglin (Pharm.D), PHARM.D. PHARMACY ANTICOAGULATION CLINIC SERVICE 10/26/2024 10:10 AM PDT Telephone Appointment Visit FAMILY [facility] [address] [place] [address] Tessy Kerr), M.D. AFTERCARE FOLLOWING HOSPITALIZATION (Primary Dx); ANEMIA; ATRIAL FIBRILLATION W RAPID VENTRICULAR RESPONSE 10/23/2024 Anticoagulation [place] [address] Noah Dill (Pharm.D), PHARM.D. 10/22/2024 Transitional Care Mgmnt-Telephone CONTINUING [place] [address] Uche Hensley (R.N.), R.N. HOSPITAL FOLLOW UP (Transitional Care Management / Post Hospital Discharge Call - Continuing Care Services /) 10/22/2024 Anticoagulation DEFAULT [facility] PHARMACY [id number] [place] [address] Noah Dill (Pharm.D), PHARM.D. 10/14/2024 10:54 AM PDT - 10/21/2024 5:11 PM PDT Hospital [place] [address] Fariha Hermosillo), Catalino Cotter (Richie), MTano. Eder Farnsworth (D.O.), D.O. Regine Peace (D.O.), D.O. ATRIAL FIBRILLATION W RAPID VENTRICULAR RESPONSE Discharge Disposition: Home or Self Care. 10/14/2024 10:00 AM PDT Office Visit [facility] [id number] [place] [phone] [facility] (P.ALamar[facility] PLamarALamar ABDOMINAL PAIN (Primary Dx) 10/08/2024 10:45 AM PDT Allied Health/Nurse Visit OPHTHALMOLOGY [address] [place] [address] Kenrick Genna Yanna SCREENING 10/08/2024 10:00 AM PDT Allied Health/Nurse Visit OPHTHALMOLOGY [address] [place] [address] Carlene Ortiz (M.A.), M.A. VISUAL FIELD TEST from Last 3 Months Immunizations Name Administration [...] and over (FLUVIRIN ) (Influenza) 03/10/2015,05/20/2014,04/11/2013 PCV13 ([id number]) (Pneumococ deepali conjugate, 13 valent) 03/10/2015 PPSV23 [...] PDT Office Visit CARDIOLOGY [address] [place] [phone] Melanie Osuna (N.P.), N.P. [address] [place] [address] 03/25/2025 9:30 AM PDT Orthopedic Office Visit ORTHOPEDICS [address] [place] [address] David Palacios), MMagdalene [address] [place] [address] Health Maintenance Due Date Last Done Comments IMM RSV (75 YRS AND OLDER) ( 1 - 1-dose 75+ series) 2019 IMM COVID-19 (6 MO AND OLDER ) (5 - 2023- season) 2024 11/09/2021, 06/09/2021, 08/18/2020, Additional history exists IMM DTAP,TDAP,TD (42 DAYS-12 0 YRS) (5 - Td or Tdap) 08/12/2032 08/12/2022, 08/01/2012, 08/01/2012, Additional history exists IMM PNEUMOCOCCAL Completed 03/10/2015, 07/15/2011 IMM ZOSTER (19 YRS AND OLDER) Completed , 09/25/2018, 08/01/2012 IMM INFLUENZA (6 MO AND OLDER) Completed 0 03/11/2024, 04/14/2023, 04/06/2022, Additional history exists Medical Devices Implanted Type Area Industrial Aerial Installer Device Identifier Shelf Expiration Date Model / Serial / Lot Pacemaker Cardiac .75cm 4.45x5.88cm Accolade Mri Latitude Nxt Pacesafe Easyview 2 [facility] Is - [id number] Implanted:Qt y: 1 on 05/23/2023 by Fanny Jade), Richie Cardiac Implant N/A: Chest BSCI - CARDIAC RHYTHM MGMT [id number] 03/28/2025 [id number] / [id number] / NA Lead Straight Ingevity+ Af Is1 7841 52cm Red - [id number] Implanted:Qt y: 1 on 05/23/2023 by Fanny Jade), MichelleD. Cardiac Implant Right: Ventricle BSCI - CARDIAC RHYTHM MGMT 04/26/2025 [id number] / [id number] / NA Lead Straight Ingevity+ Af Is1 7840 45cm White - [id number] Implanted:Qt y: 1 on 05/23/2023 by Fanny Jade)Richie Cardiac Implant Right: Atrium BSCI - CARDIAC RHYTHM MGMT 04/16/2025 7840 / [id number] / NA Lens Iol +18.5 Sydney Biconvex 13mm 6mm Post Chmbr 1 Pc Foldable Uv Absorb Modif L - [id number] Implanted:Qt y: 1 on 07/17/2014 by Juancarlos Arboleda)Richie Eye Right: Eye [employer] [id number] 04/01/2019 SN60 WF185 / [id number] / Lens Iol +18.5 Sydney Biconvex 13mm 6mm Post Chmbr 1 Pc Foldable Uv Absorb Modif L - [id number] Implanted:Qt y: 1 on 08/12/2014 by Juancarlos Arboleda)Richie Eye Left: Eye [employer] [id number] 10/30/2018 SN60 WF185 / [id number] / Liner Acetabular Altrx Neutral 54mm 36mm Hip - [id number] Implanted:Qt y: 1 on 04/28/2021 by David Palacios)Richie Orthopedic Left: Hip [employer]PU[employer] [id number] 11/30/2025 [id number] / / [id number] Cup Acetabular 54mm Charlotte Sector Series Hip - [id number] Implanted:Qt y: 1 on 04/28/2021 by David Palacios)Richie Orthopedic Left: Hip [employer] [id number] 11/30/2030 [id number] / / [id number] Stem Fem 160mm 8 06/15 High Offset Taper [place] Hip - [id number] Implanted:Qt y: 1 on 04/28/2021 by David Palacios)Richie Orthopedic Left: Hip J[employer]J DEPUY [id number] 01/30/2030 [id number] / / [id number] Head Fem +1.5mm Thk6 Mil 06/15 Taper 36mm Hip Cementless Ceramic Articul/Jose - [id number] Implanted:Qt y: 1 on 04/28/2021 by David Palacios)Richie Orthopedic Left: Hip [employer]Y [id number] 10/30/2025 [id number] 0 / / [id number] Screw Bone 6.5mm 25mm Charlotte Dome 4 Point Cut Flute Hip Acetabular Cancell Self Tap Hex - [id number] Implanted:Qt y: 1 on 04/28/2021 by David Palacios)Richie Screws/Plate s/Wires Left: Hip [employer]&J DEPUY [id number] 03/02/2031 [id number] / / [id number] Procedures Procedure Name Priority Date/Time Associated Diagnosis Comments INR, FINGER STICK, POCT Routine 12/11/19 11:28 AM PDT INR Routine 11/22/2024 INR Routine 11/12/2024 8:34 [...] Routine 10/14 10:11 AM PDT ABDOMINAL PAIN from Last 3 Months Results * INR, FINGER STICK, POCT (12/10/2024 11:28 AM PDT) PT INR 2.06 Comment:[facility] [address] [place], [place] [phone] BLOOD 12/10/2024 11:2 8 AM PDT Juventino (Pharm.D) Jasper PHARM.DLamar POCT * INR (11/22/2024) Only the most recent of14 resultswithin the time period is included. PT INR 2.41 Comment:[facility] [address] [facility] [phone] BLOOD BLOOD / Unknown 11/22/2024 Juventino (Pharm.D) Jasper PHARM.DLamar COAGULATION * POTASSIUM (11/04/2024 8:41 AM PDT) Only the most recent of4 resultswithin the time period is included. Pathologist [facility] POTASSIUM 4.0 3.5 - 5.1 mEq/L [facility], CLINICAL PATHOLOGY [facility] Comment: Please review results carefully for any changes to reference ranges (indicated by R superscript). Deployment of new chemistry analyzers is occurring across [facility] through 2026. BLOOD / Unknown 11/04/2024 8 :41 AM PDT Narrative [facility], CLINICAL PATHOLOGY [facility] - 11/04/2024 3:11 PM PDT [facility] ACCN: [id number] Wilmer Peralta) Oziel Quiroz SERUM CHEM ISTRY [facility], CLINICAL PATHOLOGY [facility] [address] [place] [address] * CREATININE (10/29/2024 12:10 PM PDT) Only the most recent of10 resultswithin the time period is included. Pathologist [facility] CREATININE 0.87 0.57 - 1.11 mg/dL [facility], [facility] Comment: Please review results carefully for any changes to reference ranges (indicated by R superscript). Deployment of new chemistry analyzers is occurring across [facility] through 2026. EGFR, CREATININE-BASED FORMULA (CKD-EPI 2020) 67 >=60 mL/min/BSA [facility] Comment: GFR estimate is by the CKD-EPI [...] Unknown 10/29/2024 1 2:10 PM PDT Narrative [facility] - 10/30/2024 2:29 AM PDT [facility] ACCN: [id number] Tessy Peralta) Uhsa Quiroz SERUM CH EMISTRY [facility] [address] [place] [address] * (ABNORMAL) ELECTROLYTE PANEL (NA, K, CL, CO2) (10/29/2024 12:10 PM PDT) Only the most recent of2 resultswithin the time period is included. Pathologist [facility] SODIUM 137 136 - 145 mEq/L [facility] POTASSIUM 3.0(L) 3.5 - 5.1 mEq/L [facility] CHLORIDE 101 98 - 113 mEq/L [facility] CO2 27 23 - 31 mEq/L [facility] Comment: Please review results carefully for any changes to reference ranges (indicated by R superscript). Deployment of new chemistry analyzers is occurring across [facility] through 2026. BLOOD / Unknown 10/29/2024 1 2:10 PM PDT Narrative [facility], [facility] - 10/30/2024 2:29 AM PDT [facility] ACCN: [id number] Tessy Peralta) Usha Quiroz SERUM CH EMISTRY [facility], [facility] [address] [place] [address] * (ABNORMAL) CBC NO DIFFERENTIAL (10/29/2024 12:10 PM PDT) [facility] WBC'S AUTO 8.3 4.0 - 11.0 x1000/mcL [facility] RBC, AUTO 3.75 3.70 - 5.20 Mill/mcL [facility] HGB 10.6(L) 11.5 - 16.0 g/dL [facility] HCT, AUTO 32.5(L) 35.0 - 47.0 % [facility] MCV 86.7 81.0 - 99.0 fL [facility] MCH 28.3 25.0 - 35.0 pg/cell [facility] MCHC 32.6 30.0 - 35.0 g/dL [facility] RDW, BLOOD 14.6 11.5 - 16.0 % [facility] PLATELETS, AUTOMATED COUNT 482(H) 130 - 400 x1000/mcL [facility] BLOOD / Unknown 10/29/2024 1 2:10 PM PDT Narrative [facility] - 10/30/2024 12:32 AM PDT [facility] ACCN: [id number] Tessy Kerr M.D. HEMATOLO GY Performing Organization Address City/[facility]/ZIP Co de Phone Number [facility] [address] [place] [address] * LIVER FUNCTION PANEL (TBILI, ALT, ALKP) (10/22/2024 1:16 PM PDT) ALT 14 <=54 U/L [facility] ALKALINE PHOSPHATASE 50 <=125 U/L [facility] BILIRUBIN, TOTAL 0.6 <=1.0 mg/dL [facility] BLOOD / Unknown 10/22/2024 1 :16 PM PDT Narrative [facility] - 10/22/2024 7:47 PM PDT [facility] ACCN: [id number] Ashok Lorenzou (P.A.) Umah-Mgborogwu P. A. SERUM CHEMISTRY Performing Organization Address [facility]/ZIP Co de Phone Number [facility] [address] [place] [address] * BUN (10/22/2024 1:16 PM PDT) Only the most recent of9 resultswithin the time period is included. BUN 9 <=18 mg/dL [facility] BLOOD / Unknown 10/22/2024 1 :16 PM PDT Narrative [facility] - 10/22/2024 7:40 PM PDT [facility] ACCN: [id number] Ashok Tocannamariekwu (P.A.) Umah-Mgborogwu P. A. SERUM CHEMISTRY Performing Organization Address [facility] Co de Phone Number [facility] [address] [place] [address] * LIPASE (10/22/2024 1:16 PM PDT) Only the most recent of2 resultswithin the time period is included. Pathologist [facility] LIPASE 39 <=58 U/L [facility] BLOOD / Unknown 10/22/2024 1 :16 PM PDT Narrative [facility] - 10/22/2024 7:47 PM PDT [facility] ACCN: [id number] Ashok Batres (P.A.) [facility]-Mgborogwu P. A. SERUM CHEMISTRY Performing Organization Address [facility] de Phone Number [facility] [address] [place] [address] * (ABNORMAL) CBC W AUTOMATED DIFFERENTIAL (10/22/2024 1:16 PM PDT) Only the most recent of9 resultswithin the time period is included. WBC'S AUTO 10.7 4.0 - 11.0 x1000/mcL [facility] RBC, AUTO 3.75 3.70 - 5.20 Mill/mcL [facility] HGB 10.5(L) 11.5 - 16.0 g/dL [facility] HCT, AUTO 31.4(L) 35.0 - 47.0 % [facility] MCV 83.7 81.0 - 99.0 fL [facility] MCH 28.0 25.0 - 35.0 pg/cell [facility] MCHC 33.4 30.0 - 35.0 g/dL [facility] RDW, BLOOD 14.3 11.5 - 16.0 % [facility] PLATELETS, AUTOMATED COUNT 569(H) 130 - 400 x1000/mcL [facility] BLOOD / Unknown 10/22/2024 1 :16 PM PDT Narrative [facility] - 10/22/2024 7:50 PM PDT [facility] ACCN: [id number] Ashok Kitchenkwu (P.A.) Um-Mgborogwu P. A. HEMATOLOGY Performing Organization Address [facility] de Phone Number [facility] [id number] [place] [address] * (ABNORMAL) B-TYPE NATRIURETIC PEPTIDE (BNP) (10/22/2024 1:16 PM PDT) Only the most recent of3 resultswithin the time period is included. [facility] B TYPE NATRIURETIC PEPTIDE 820(H) <=99 pg/mL [facility] Comment: Less than 100: Not likely heart failure 100-500: Indeterminate range Greater than 500: Heart failure likely For Indeterminate results, one must consider the following: Baseline BNP value elevated due to stable underlying dysfunction; right ventricular failure present from COR Pulmonale; Acute pulmonary embolism or renal failure. BLOOD / Unknown 10/22/2024 1 :16 PM PDT Narrative [facility] - 10/22/2024 7:27 PM PDT [facility] ACCN: [id number] Ashok Kitchenkwu (P.A.) [facility]-Mgborogwu P. A. SERUM CHEMISTRY Performing Organization Address [facility] de Phone Number [facility] [address] [place] [address] * (ABNORMAL) WBC AUTO DIFF (10/22/2024 1:16 PM PDT) Only the most recent of9 resultswithin the time period is included. [facility] NEUTROPHILS %, AUTOMATED COUNT 79.3 [facility] LYMPHOCYTES %, AUTOMATED COUNT 10.7 [facility] MONOS %, AUTO 6.1 [facility] EOSINOPHILS %, AUTOMATED COUNT 1.6 [facility] BASOPHILS %, AUTOMATED COUNT 0.6 [facility] IMMATURE GRANULOCYTES %, AUTOMATED COUNT 2 [facility] RBC NUCLEATED AUTO COUNT, BLD 0 <=0 % [facility] NEUTROPHILS, ABSOLUTE, AUTOMATED COUNT 8.50(H) 1.80 - 7.70 x1000/mcL [facility] LYMPHOCYTES, AUTOMATED COUNT 1.15 1.00 - 3.60 x1000/mcL [facility] MONOCYTES, AUTOMATED COUNT 0.65 0.10 - 1.00 x1000/mcL [facility] EOSINOPHILS, AUTOMATED COUNT 0.17 0.00 - 0.70 x1000/mcL [facility] BASOPHILS, AUTOMATED COUNT 0.06 0.00 - 0.20 x1000/mcL [facility] IMMATURE GRANULOCYTES, AUTOMATED COUNT 0.18(H) 0.01 - 0.09 x1000/mcL [facility] BLOOD / Unknown 10/22/2024 1 :16 PM PDT Narrative [facility] - 10/22/2024 7:50 PM PDT [facility] ACCN: [id number] Ashok Batres (P.A.) Rico-Mgchuckwu P. A. HEMATOLOGY Performing Organization Address [facility] Co de Phone Number [facility] [address] [place] [address] * GLUCOSE (10/22/2024 1:16 PM PDT) Only the most recent of2 resultswithin the time period is included. GLUCOSE, RANDOM 107 70 - 140 mg/dL [facility] BLOOD / Unknown 10/22/2024 1 :16 PM PDT Narrative [facility] - 10/22/2024 7:40 PM PDT [facility] ACCN: [id number] Ashok Batres (P.A.) Rico-Mgchuckwu P. A. SERUM CHEMISTRY Performing Organization Address [facility] Co de Phone Number [facility] [address] [place] [address] * (ABNORMAL) ELECTROLYTE PANEL (NA, K, CL, CO2, ANION GAP) (10/21/2024 4:37 AM PDT) Only the most recent of13 resultswithin the time period is included. SODIUM 127(L) 135 - 145 mEq/L [facility] POTASSIUM 3.6 3.5 - 5.0 mEq/L [facility] CHLORIDE 96(L) 101 - 111 mEq/L [facility] CO2 22 21 - 31 mEq/L [facility] ANION GAP (NA - (CL + CO2)) 9 3 - 11 mEq/L [facility] BLOOD / Unknown 10/21/2024 4 :37 AM PDT Keyon Peralta) Azael Quiroz SER UM CHEMISTRY Performing Organization Address [facility] Co de Phone Number [facility] [address] [place] [address] * (ABNORMAL) PHOSPHATE (10/21/2024 4:37 AM PDT) Only the most recent of2 resultswithin the time period is included. PHOSPHORUS 2.6(L) 2.7 - 4.5 mg/dL [facility] BLOOD / Unknown 10/21/2024 4 :37 AM PDT Regine Sanchez.OLamar) Kobi Witt SERUM NURSE GENERAL DUTY RY Performing Organization Address [facility] Co de Phone Number [facility] [address] [place] [address] * MAGNESIUM (10/21/2024 4:37 AM PDT) Only the most recent of9 resultswithin the time period is included. MAGNESIUM 2.3 1.7 - 2.8 mg/dL [facility] Comment: Magnesium results between 4.9 mg/dL and 9.7 mg/dL are not considered critical for patients receiving MgSO4 therapy. BLOOD / Unknown 10/21/2024 4 :37 AM PDT Eder Bhatt) Javad Witt SERUM CHEMISTRY Performing Organization Address [facility] Co de Phone Number [facility] [address] [place] [address] * (ABNORMAL) GLUCOSE, FASTING (10/21/2024 4:37 AM PDT) Only the most recent of7 resultswithin the time period is included. GLUCOSE, FASTING 117(H) 70 - 99 mg/dL [facility] Comment: A repeatable fasting blood [...] Quiroz SERUM CHEMISTR Y Performing Organization Address [facility] de Phone Number [facility] [address] [place] [address] * SODIUM, URINE (10/20/2024 9:59 PM PDT) SODIUM, URINE 56 mEq/L [facility] Comment: To precisely quantify excretion, please collect 24 hour urine. URINE 10/20/2024 9:59 PM PDT Keyon Peralta) Azael SHUKLA NE CHEMISTRY Performing Organization Address [facility] de Phone Number [facility] [facility] [address] [place] [address] * OSMOLALITY, URINE (10/20/2024 9:59 PM PDT) OSMOLALITY, URINE 625 50 - 1,200 mOsm/kg [facility] Comment: Reference Range for Urine Osmolality: Random Specimen : 50-1200 mOsm/kg H2O 24 Hr Specimen: Age: 0-1 Month : 50-645 mOsm/kg H2O Age: 1 Month-Adult : 50-900 mOsm/kg H2O URINE 10/20/2024 9:59 PM PDT Keyon Peralta) Azael GARCIA CHEMISTRY Performing Organization Address [facility] de Phone Number [facility] [address] [place] [address] * (ABNORMAL) OSMOLALITY, SERUM (10/20/2024 12:07 PM PDT) MEASURED OSMOLALITY 263(L) 280 - 305 mOsm/kg [facility] BLOOD / Unknown 10/20/2024 1 2:07 PM PDT Keyon Peralta) Azael Quiroz SER UM CHEMISTRY [facility] [address] [place] [address] * XR CHEST 1 VIEW (10/19/2024 4:34 [...] IMMUNOCHROMATOGRAPHIC ASSAY (10/16/2024 7:37 PM PDT) Pathologist [facility] STREPTOCOCCUS PNEUMONIAE AG, URINE Negative Negative [facility] Comment: Adults with pneumococcal pneumonia sensitivity 50-80%; specificity 90%. Children with pneumococcal pneumonia sensitivity 80-90%; specificity 60-80%. URINE 10/16/2024 7:37 PM PDT Eder Santoro (Familia.O.) Javad D.O. IMMUNOLOGY Performing Organization Address City/[facility] Co de Phone Number [facility] [address] [place] [address] * LEGIONELLA PNEUMOPHILA ANTIGEN, URINE, IMMUNOASSAY (10/16/2024 7:37 PM PDT) [facility] LEGIONELLA PNEUMOPHILA AG, URINE, EIA Presumptive Negative Presumptive Negative [facility] Comment: Presumptive positive for the presence of L. pneumophila serogroup 1 antigen in urine, suggesting current or past infection. Please submit a respiratory specimen for LEGIONELLA SPECIES CULTURE [[facility] order code: [id number]]. Urinary Legionella antigen may persist long after active infection has resolved. More conclusive evidence of active infection is obtained from LEGIONELLA SPECIES CULTURE [[facility] order code: [id number]], Results of this assay should be interpreted [...] 7:37 PM PDT Eder Santoro (Familia.O.) Javad D.O. OUTSIDE TESTING Performing Organization Address City/[facility] Co de Phone Number [facility] [address] [place] [address] * SARS-COV-2 (COVID-19), INFLUENZA A + B, MULTIPLEX STACY (10/16/2024 11:45 AM PDT) SARS-COV-2 (COVID-19), QUALITATIVE, STACY Not Detected Not Detected [facility] INFLUENZA VIRUS A, PCR Not Detected Not Detected [facility] INFLUENZA VIRUS B RNA, PCR Not Detected Not Detected [facility] Comment: Positive results do not [...] 5 AM PDT Eder Santoro (D.O.) Javad D.OLamar VIROLOGY Performing Organization Address [facility] de Phone Number [facility] [address] [place] [address] * CLOSTRIDIUM DIFFICILE GDH AG, TOXINS A, B W REFLEX TO PCR (10/15/2024 10:11 AM PDT) Pathologist [facility] CLOSTRIDIOIDES (CLOSTRIDIUM) DIFFICILE AG AND TOXINS A+B, STOOL Negative Negative [facility] Comment: A finding of I ndeterminate represents discrepant immunoassay results obtained for GDH (antigen specific to C. difficile) and toxin production. Molecular testing (nucleic acid amplification) will follow to confirm results. STOOL 10/15/2024 10:1 1 AM PDT Eder Santoro (D.O.) Javad D.O. MICROBIOLOGY Performing Organization Address [facility] de Phone Number [facility] [address] [place] [address] * (ABNORMAL) HEPARIN THERAPY, APTT (10/15/2024 8:12 AM PDT) Only the most recent of2 resultswithin the time period is included. Pathologist [facility] APTT 52(L) 68 - 105 Sec [facility] BLOOD / Unknown 10/15/2024 8 :12 AM PDT Anish (R.P.H.) Aniyah HARRIS COAGULATION Performing Organization Address [facility] de Phone Number [facility] [address] [place] [address] * (ABNORMAL) UNFRACTIONATED HEPARIN, ANTI FACTOR XA (10/15/2024 8:12 AM PDT) Only the most recent of2 resultswithin the time period is included. HEPARIN, UNFRACTIONATED <0.10(L) 0.30 - 0.70 IU/mL [facility] BLOOD / Unknown 10/15/2024 8 :12 AM PDT Anish (R.P.H.) Aniyah HARRIS COAGULATION Performing Organization Address [facility] de Phone Number [facility] [address] [place] [address] * (ABNORMAL) ALBUMIN (10/15/2024 5:57 AM PDT) Pathologist [facility] ALBUMIN 2.4(L) 3.3 - 4.8 g/dL [facility] BLOOD / Unknown 10/15/2024 5 :57 AM PDT Catalino Peralta) Rl Quiroz SERUM CHEMISTR Y Performing Organization Address [facility] de Phone Number [facility] [address] [place] [address] * BACTERIAL GI PANEL (SALMONELLA, SHIGELLA/EIEC, CAMPYLOBACTER, SHIGA TOXIN DNA), STOOL, MULTIPLEX PCR (10/14/2024 10:38 PM PDT) Pathologist [facility] SALMONELLA SPECIES DNA, STOOL, QL, PCR Not Detected Not Detected [facility] [place] SHIGELLA SP+EIEC DNA, STOOL, QL, PCR Not Detected Not Detected [facility], [facility] [place] CAMPYLOBACTER COLI/JEJUNI DNA, STOOL, QL, PCR Not Detected Not Detected [facility], [facility] SHIGA TOXIN GENES, PCR Not Detected Not Detected [facility], [facility] Comment: A Not Detected [...] Peralta) Rl Quiroz MICROBIOLOGY Performing Organization Address [facility] Co de Phone Number [address] [address] * BLOOD CULTURE (10/14/2024 4:14 PM PDT) Only the most recent of2 resultswithin the time period is included. FINAL RESULT No growth at 5 days. [facility] BLOOD / Unknown 10/14/2024 4 :14 PM PDT Catalino Peralta) Rl Quiroz MICROBIOLOGY Performing Organization Address [facility] Co de Phone Number [facility] [address] [place] [address] * (ABNORMAL) TROPONIN I, HIGH SENSITIVITY (10/14/2024 3:55 PM PDT) Only the most recent of2 resultswithin the time period is included. TROPONIN I, HIGH SENSITIVITY 24(H) <=12 pg/mL [facility] Comment: Symptom hsTnI (pg/mL) Delta hsTnl Interpretation Duration M F (pg/mL) >=18y/o M <18y/o Any >100 >75 Myocardial Injury >3 hours <=20 <=12 No Myocardial Injury 21-100 13-75 Rpt TnI in 2 hrs.Calc Delta <=5 No WA 6-10 Indeterminate >10 Acute Myocardial Injury *Troponin values may be elevated in clinical conditions other than acute coronary syndrome. BLOOD / Unknown 10/14/2024 3 :55 PM PDT Catalino Peralta) Rl Quiroz IMMUNOLOGY [facility] [address] [place] [address] * CT ABD AND PELVIS NO CONTRAST [...] per protocol. CT Dose: As required by [place] law, the CTDIvol and DLP radiation doses [...] per protocol. CT Dose: As required by [place] law, the CTDIvol and DLP radiation dosesassociated [...] Quiroz CT * TRANSTHORACIC ECHO (TTE) LIMITED, (10/14/2024 3:23 PM PDT) Narrative Sanjiv Valente [...] LACTATE, SER/PLAS 1.0 0.5 - 1.9 mmol/L [facility] BLOOD / Unknown 10/14/2024 2 :04 PM PDT Narrative [facility] - 10/14/2024 2:23 PM PDT [place]ha Peralta) Jaimee Quiroz SERUM CHEM ISTRY Performing Organization Address City/[facility]/ZIP Co de Phone Number [facility] [address] [place] [address] * (ABNORMAL) CALCIUM (10/14/2024 2:04 PM PDT) CALCIUM 8.0(L) 8.5 - 10.7 mg/dL [facility] BLOOD / Unknown 10/14/2024 2 :04 PM PDT Fariha Peralta) Jaimee Quiroz SERUM CHEM ISTRY [facility] [address] [address] * (ABNORMAL) LACTIC ACID W REFLEX TO REPEAT (10/14/2024 11:06 AM PDT) LACTATE, SER/PLAS 2.3(H) 0.5 - 1.9 mmol/L [facility] BLOOD / Unknown 10/14/2024 1 1:06 AM PDT Fariha Peralta) Jaimee Quiroz SERUM CHEM ISTRY Performing Organization Address City/[facility]/ZIP Co de Phone Number [facility] [address] [place] [address] * ALT (10/14/2024 11:06 AM PDT) ALT 15 <=54 U/L [facility] BLOOD / Unknown 10/14/2024 1 1:06 AM PDT Kelly Peralta) Yvan Quiroz SERUM CHEMISTRY Performing Organization Address City/[facility]/ZIP Co de Phone Number [facility] [address] [place] [address] * AST (10/14/2024 11:06 AM PDT) AST 20 <=30 U/L [facility] BLOOD / Unknown 10/14/2024 1 1:06 AM PDT Kelly Peralta) Yvan Quiroz SERUM CHEMISTRY Performing Organization Address City/[facility]/ZIP Co de Phone Number [facility] [address] [place] [address] * ALKALINE PHOSPHATASE (10/14/2024 11:06 AM PDT) ALKALINE PHOSPHATASE 62 <=125 U/L [facility] BLOOD / Unknown 10/14/2024 1 1:06 AM PDT Kelly Peralta) Yvan MartinezD. SERUM CHEMISTRY Performing Organization Address [facility] Co de Phone Number [facility] [address] [place] [address] * (ABNORMAL) BILIRUBIN, DIRECT (10/14/2024 11:06 AM PDT) BILIRUBIN, DIRECT 0.4(H) <=0.2 mg/dL [facility] BLOOD / Unknown 10/14/2024 1 1:06 AM PDT Kelly Peralta) Yvan Quiroz SERUM CHEMISTRY Performing Organization Address [facility] de Phone Number [facility] [address] [place] [address] * (ABNORMAL) BILIRUBIN, TOTAL (10/14/2024 11:06 AM PDT) BILIRUBIN, TOTAL 1.3(H) <=1.0 mg/dL [facility] BLOOD / Unknown 10/14/2024 1 1:06 AM PDT Kelly Peralta) Yvan Quiroz SERUM CHEMISTRY Performing Organization Address [facility] de Phone Number [facility] [address] [place] [address] * (ABNORMAL) APTT (10/14/2024 11:06 AM PDT) APTT 40(H) 25 - 37 Sec [facility] BLOOD / Unknown 10/14/2024 1 1:06 AM PDT Shante (Pharm.D) To DILSHAD.DLamar COAGULATIO N Performing Organization Address [facility] Co de Phone Number [facility] [address] [place] [address] * EKG 12 OR MORE LEADS W INT & RPT (10/14/2024 10:30 AM PDT) VENTRICULAR RATE 178 BPM SCAL EKG INTERFACE ATRIAL RATE 182 BPM SCAL EKG INTERFACE WI INTERVAL 146 ms SCAL EKG INTERFACE QRS [...] (10/14/2024 10:11 AM PDT) Narrative Keny Stock (L.V.NLamar), L.V.N. - 10/14/2024 10:11 AM PDT URINE DIPSTICK, POCT GLUCOSE: Neg Reference Range: Negative KETONES: 15 mg/dL Reference Range: Negative SP. GRAVITY: 1.015 Reference Range: 1.005-1.030 BLOOD: Neg Reference Range: Negative PH: 6.5 Reference Range: 5.0 - 8.0 PROTEIN: 100 mg/dL (2+) Reference Range: Negative/Trace NITRITE: Negative Reference Range: Negative LEUKOCYTES: Negative Reference Range: Negative LOT#:[id number] Expiration Date:09/30/25 Date/Time: 10/14/2024 10:11 AM Performed by: KENY STOCK [facility] [address] [facility] [phone] CORE COMPOSER FEEDER: [facility] Med Office - Yolanda Prescott D.O. Ashok Batres (P.A.) Rico-Mgclarita Bere SIMMS from Last 3 Months Advance Directives * [...] Result Release to patient? Immediate Care Teams Human Resources Assistant Manager Relationship Specialty Start Date End Date Wilmer Ludwig M.D., M.D. [address] [phone] PCP - General Family Practice 7/11/14
--- OUTSIDE RECORDS SUMMARY | 2024-12-28 12:29 | XMS_ITS | Encounter Summary ---
Author Organization [facility] Address [address] [place] [address] Care Team Providers Care Clinical Pharmacy Technician Name Role Phone Wilmer Ludwig) Richie Primary Care Prov ider Unavailable Encounter Details Date Type Department Care Team (Late st Contact Info) Description 11/21/2024 Anticoagulation [facility] [address] [place] [address] Noah Dill (Pharm.D), PHARM.D. [address] [place] [phone] Social History Tobacco Use Types Packs/Day Years [...] faxed. Electronically signed by: Juventino Hutchinson PharmMagdalene [employer] Flatbed Truck Driver Pharmacist 11/27/2024 2:11 PM * Noah DillPharm.D), PHARM.Charbel - 11/21/2024 4:27 PM PDT No INR in process. Will have insurance account assistant remind patient to return to lab for INR test TIM. Electronically signed by: NOAH DILL PHARMD 11/21/2024 4:27 PM documented in this encounter Nursing Notes * Sourav Amato - 11/27/2024 2:23 PM PDT Called patient to find out what lab patient went to ER in [facility] Spoke with Dew he will fax over results to us from her visit. Electronically signed by SOURAV AMATO [employer] Director 11/27/2024 2:27 PM * Perlita Marti - 11/22/2024 12:04 PM PDT Lab reminder call x1, patient just went to lab this morning Electronically signed by PERLITA [employer]ilmore [employer] Director 11/22/2024 12:04 PM documented in this encounter Plan of Treatment Upcoming Encounters Date Type Department Care Team (Late st Contact Info) Description 03/05/2025 10:00 AM PDT Office Visit CARDIOLOGY [address] [phone] Melanie Osuna (N.P.), N.P. [address] [place] [phone] 03/25/2025 9:30 AM PDT Orthopedic Office Visit [place]THOPEDICS [address] [place] [phone] David Palacios), [place]agdalene [address] [place] [phone] documented as of this encounter Procedures Procedure Name Priority Date/Time Associated Diagnosis Comments INR Routine 11/22/2024 documented in this encounter Results * INR (11/22/2024) PT INR 2.41 Comment:[facility] [address] [facility] [phone] BLOOD BLOOD / Unknown 11/22/2024 Juventino (Pharm.D) [place]asper PHARM.DLamar COAGULATION documented in this encounter Visit Diagnoses Not on filedocumented in this encounter Care Teams Clinical Pharmacy Technician Relationship Specialty Start Date End Date Wilmer Ludwig M.D., MLamarD. [address] [phone] PCP - General Family Practice 01/10/14 documented as of this encounter
[2024-12-28 12:30] VITALS: BP 181/84; PULSE 65; RESP 16; TEMP 36.4; O2SAT 97; BMI 25.0
--- NOTE | 2024-12-28 12:41 | ED.GENADULT ---
HPI - General Adult General Chief complaint: Unspecified Complaint, Adult Stated complaint: unspecified Time Seen by Provider: 12/28/24 12:36 History of Present Illness HPI narrative: Patient is a 79-year-old woman who I have seen on previous occasions. She takes Coumadin for atrial fibrillation. Strangely she can only have a done in the emergency room. She is visiting for the summer. When I met her previously try to work it out so that we get her INR is in the office at a lower cost for her. This is not acceptable to her insurance company. Patient otherwise feels fine no new issues. Patient would like her INR drawn and faxed to her provider in [place]. Related Data Home Medications ?Medication ?Instructions ?Recorded ?Confirmed atorvastatin 10 mg tablet 10 mg PO QDAY 05/12/22 11/29/24 clonidine 0.1 mg/24 hr weekly 1 patch transdermal QWEEK 05/12/22 11/29/24 transdermal patch warfarin 2 mg tablet 2 mg PO QMWF 05/12/22 11/29/24 amiodarone 200 mg tablet 200 mg PO 11/22/24 carvedilol 12.5 mg tablet 12.5 mg PO BID 11/22/24 11/29/24 diltiazem HCl 120 mg 120 mg PO BID 11/22/24 11/29/24 capsule,extended release 24 hr nitrofurantoin 1 cap PO DAILY 11/29/24 11/29/24 monohydrate/macrocrystals 100 mg capsule furosemide 20 mg tablet 20 mg PO DAILY 12/10/24 12/10/24 Allergies Allergy/AdvReac Type Severity Reaction Status Date / Time aspirin (From Percodan) Allergy Intermediate really Verified 11/22/24 11:52 sick and pass out oxycodone (From Percodan) Allergy Intermediate really Verified 11/22/24 11:52 sick and pass out Penicillins Allergy Intermediate vomiting Verified 05/12/22 12:17 Sulfa (Sulfonamide Allergy Intermediate vomiting Verified 05/12/22 12:17 Antibiotics) Review of Systems Status of ROS: Reports: 10 or more systems reviewed and unremarkable except as noted in History and below [facility] Medical History Seasonal allergies ?J30.2 - Other seasonal allergic rhinitis (ICD-10) Social History Smoking Status: Never smoker How often do you have a drink containing alcohol: 2-4 times a month AUDIT-C Alcohol total score: 2 Non-prescribed substance use: denies use Exam Narrative: Exam Narrative: EXAM GENERAL: Patient appears comfortable and well. EYES: No scleral icterus. LYMPH: No supraclavicular or cervical lymphadenopathy. SKIN: Visible skin seen during exam normal or with benign process only. EXT: No dependent lower extremity pedal edema. HEART: Regular rate and rhythm with no murmurs, rubs, or gallops. LUNGS: Clear to auscultation bilaterally with no crackles or wheezes. ABD: Soft, non tender, non distended. PSYCH: Good eye contact, speech is not pressured. Const: Vital Signs, click to edit/add: Vital Signs - 24 hr 12/28/24 12:30 Temperature 97.5 F L Pulse Rate [Right Radial] 65 Respiratory Rate 16 Blood Pressure [Ri ght Upper Arm] 181/84 H Pulse Oximetry 97 Oxygen Delivery Me thod Room Air Course Course ED Course: Patient seen examined INR drawn and will be faxed into her primary provider. Vital Signs Vital signs: Initial Vital Signs Temperature 97.5 F L 12/28/24 12:30 Temperature Source Temporal Artery Scan 12/28/24 12:30 Pulse Rate 65 12/28/24 12:30 Pulse Rhythm Regular 12/28/24 12:30 Respiratory Rate 16 12/28/24 12:30 Blood Pressure 181/84 H 12/28/24 12:30 Blood Pressure Mean 116 H 12/28/24 12:30 Pulse Oximetry 97 12/28/24 12:30 Oxygen Delivery Method Room Air 12/28/24 12:30 Vital Signs Temperature 97.5 F L 12/28/24 12:30 Pulse Rate 65 12/28/24 12:30 Respiratory Rate 16 12/28/24 12:30 Blood Pressure 181/84 H 12/28/24 12:30 Pulse Oximetry 97 12/28/24 12:30 Oxygen Delivery Method Room Air 12/28/24 12:30 Temperature 97.5 F L 12/28/24 12:30 Pulse Rate 65 12/28/24 12:30 Respiratory Rate 16 12/28/24 12:30 Blood Pressure 181/84 H 12/28/24 12:30 Pulse Oximetry 97 12/28/24 12:30 Oxygen Delivery Method Room Air 12/28/24 12:30 Discharge Plan Discharge Clinical Impression: Anticoagulant long-term use Patient Disposition: Home, Self-Care Condition: Stable Instructions: Blood Thinners (ED) Additional Instructions: Continue current Coumadin Await further instruction from your doctor. Activity Level: No Restrictions Discharge Diet: Regular Prescriptions: No Action warfarin 2 mg tablet 2 mg PO QMWF atorvastatin 10 mg tablet 10 mg PO QDAY clonidine 0.1 mg/24 hr patch weekly 1 patch transdermal QWEEK nitrofurantoin monohyd/m-cryst 100 mg capsule 1 cap PO DAILY carvedilol 12.5 mg tablet 12.5 mg PO BID amiodarone 200 mg tablet 200 mg PO diltiazem HCl 120 mg capsule,extended release 24hr 120 mg PO BID furosemide 20 mg tablet 20 mg PO DAILY Follow Up/Referrals: Bossman Garcia MD [Primary Care Provider, Internal Medicine] Stand Alone Forms: [facility] Info Instructions
[2024-12-28 13:09] LABS: INR 1.89 (0.91-1.10); Prothrombin Time 22.7 Seconds
== END 2024-12-28 13:00 | disposition home or self-care (01) ==
LOC: ED 12:48
PROVIDERS: Emergency Provider Internal Medicine; PCP Internal Medicine
DX: Z79.01 Long term (current) use of anticoagulants (principal)
CPT/HCPCS: 36415; 85610; 99281; 99283

== ENCOUNTER 2025-01-06 20:11 | Emergency (ER) | payer OTHER, SELFPAY ==
--- OUTSIDE RECORDS SUMMARY | 2025-01-06 20:14 | XMS_ITS | Encounter Summary ---
Author Organization [facility] Address [address] [place] [place] [address] Care Team Providers Care Fabric Inspector Name Role Phone Wilmer Ludwig) Dilma. Primary Care Prov ider Unavailable Encounter Details Date Type Department Care Team (Late st Contact Info) Description 03/23/2021 Refill FAMILY PRACTICE [address] [place] [address] Wilmer Ludwig), MLamarD. [address] [place] [address] Medications Social History Tobacco Use [...] Care Team (Late st Contact Info) Description 03/27/2025 8:45 AM PDT Orthopedic Office Visit ORTHOPEDICS [address] [place] [address] David Palacios), M.Familia. [address] [place] [phone] 04/01/2025 10:10 AM PDT Ancillary Procedure CARDIOLOGY [address] [phone] documented as of this encounter Visit Diagnoses Diagnosis HTN (HYPERTENSION) HTN documented in this encounter Care Teams Fabric Inspector Relationship Specialty Start Date End Date Wilmer Ludwig), MTano. [address] [phone] PCP - General Family Practice 01/10/14 documented as of this encounter
--- OUTSIDE RECORDS SUMMARY | 2025-01-06 20:14 | XMS_ITS | Encounter Summary ---
Author Organization [facility] Address [address] [place] [address] Care Team Providers Care Roto Rooter Operator Name Role Phone Wilmer Ludwig M.D., M.D. Primary Care Prov ider Unavailable Encounter Details Date Type Department Care Team (Late st Contact Info) Description 05/04/2021 Home Care Visit [address] [phone] Social History Tobacco Use Types [...] 8:45 AM PDT Orthopedic Office Visit ORTHOPEDICS [address] [place] [phone] David Palacios), [place]. [address] [place] [phone] 04/01/2025 10:10 AM PDT Ancillary Procedure CARDIOLOGY [address] [phone] documented as of this encounter Visit Diagnoses Not on filedocumented in this encounter Care Teams Roto Rooter Operator Relationship Specialty Start Date End Date Wilmer Ludwig M.D., Dilma. [address] [phone] PCP - General Family Practice 01/10/14 documented as of this encounter
--- OUTSIDE RECORDS SUMMARY | 2025-01-06 20:14 | XMS_ITS | Encounter Summary ---
Author Organization [facility] Address [address] [place] [address] Care Team Providers Care Letterset Press Set Up Operator Name Role Phone Wilmer Ludwig) Richie Primary Care Prov ider Unavailable Encounter Details Date Type Department Care Team (Late st Contact Info) Description 05/11/2021 Home Care Visit DEFAULT [facility] [address] [address] Social History Tobacco Use Types [...] 8:45 AM PDT Orthopedic Office Visit ORTHOPEDICS [address] [place] [phone] Davdi Palacios), [place]. [address] [place] [phone] 04/01/2025 10:10 AM PDT [...] Yes documented in this encounter Care Teams Letterset Press Set Up Operator Relationship Specialty Start Date End Date Wilmer Ludwig), MLamarD. [address] [phone] PCP - General Family Practice 01/10/14 documented as of this encounter
--- OUTSIDE RECORDS SUMMARY | 2025-01-06 20:14 | XMS_ITS | Encounter Summary ---
Author Organization [facility] Address [address] [place] [place] [address] Care Team Providers Care Tree Tapping Laborer Name Role Phone Wilmer Ludwig M.D., M.D. Primary Care Prov ider Unavailable Encounter Details Date Type Department Care Team (Late st Contact Info) Description 05/11/2021 Home Care Visit [address] [address] Social History Tobacco Use Types [...] 8:45 AM PDT Orthopedic Office Visit ORTHOPEDICS [address] [place] [phone] David Palacios), [place]. [address] [place] [phone] 04/01/2025 10:10 AM PDT Ancillary Procedure CARDIOLOGY [address] [id number] documented as of this encounter Visit Diagnoses Not on filedocumented in this encounter Care Teams Tree Tapping Laborer Relationship Specialty Start Date End Date Wilmer Ludwig M.D., Dilma. [address] [phone] PCP - General Family Practice 01/10/14 documented as of this encounter
--- OUTSIDE RECORDS SUMMARY | 2025-01-06 20:14 | XMS_ITS | Encounter Summary ---
Author Organization [facility] Address [address] [place] [address] Care Team Providers Care Bid Clerk Name Role Phone Wilmer Ludwig M.D., M.D. Primary Care Prov ider Unavailable Encounter Details Date Type Department Care Team (Late st Contact Info) Description 04/28/2021 Home Care Visit [address] [address] Social History Tobacco Use Types [...] 8:45 AM PDT Orthopedic Office Visit ORTHOPEDICS [address] [place] [address] [phone] David Palacios), [place]. [address] [place] [phone] 04/01/2025 10:10 AM PDT Ancillary Procedure CARDIOLOGY [address] [id number] documented as of this encounter Visit Diagnoses Not on filedocumented in this encounter Care Teams Bid Clerk Relationship Specialty Start Date End Date Wilmer Ludwig M.D., Dilma. [address] [phone] PCP - General Family Practice 01/10/14 documented as of this encounter
--- OUTSIDE RECORDS SUMMARY | 2025-01-06 20:14 | XMS_ITS | Encounter Summary ---
Author Organization [facility] Address [address] [place] [address] Care Team Providers Care Neck Skewer Name Role Phone Wilmer Ludwig) Richie Primary Care Prov ider Unavailable Encounter Details Date Type Department Care Team (Late st Contact Info) Description 11/27/2024 Anticoagulation [facility] [address] [place] [address] Juventino Hutchinson (Pharm.D), PHARM.D. [address] [place] [phone] Social History Tobacco Use Types Packs/Day Years [...] PM PDT Route to asst to call [facility] [phone] to request INR result to be faxed. Electronically signed by: Juventino Hutchinson Pharm.D. Document Specialist Pharmacist 12/12/2024 3:40 PM * Juventino HutchinsonPharm.D) PHARM.DLamar - 12/12/2024 12:17 PM PDT No INR result received. Route to digital marketing assistant to make lab reminder call - please verify if patient went to outside lab. Electronically signed by: Juventino Hutchinson Pharm.D. Document Specialist Pharmacist 12/12/2024 12:17 PM * Noah DillPharm.D) PHARM.DLamar - 12/06/2024 4:36 PM PDT No INR in process. Will have digital marketing assistant remind patient to return to lab for INR test TIM. Electronically signed by: NOAH DILL PHARMFamilia 12/06/2024 4:36 PM * Juventino HutchinsonPharm.D), PHARM.DLamar - 11/27/2024 3:33 PM PDT Primary Care Physician: Wilmer Ludwig) S/O: Instructed Anticoagulation Director Of Vendor Management/Coupon Collection Clerk to call patient to check if patient [...] Lavender A/P: INR within therapeutic range Instruct digital marketing assistant to give the following instructions: Warfarin Dosing Instructions: continue 2mg daily exc 1mg Mon/Fri (same as 1 tablet daily exc 1/2 tablet Mon/Fri) Follow up date: 12/06/24 Glost Tile Sorter/Coupon Collection Clerk to confirm patient???s understanding of warfarin instruction and ask to repeatback the instruction. Electronically signed by: JUVENTINO HUTCHINSON PHARMFamilia 11/27/2024 3:35 PM documented in this encounter Nursing Notes * Perlita Marti - 12/13/2024 4:17 PM PDT [facility] faxed over patient inr results 2.06 Forwarded [...] phone of results and send message through [employer] eulalia to Pharm D in future Electronically signed by: PERLITA MARTI 12/13/2024 3:23 PM * Perlita Marti - 12/12/2024 12:25 PM PDT SPOKE WITH PATIENT AND SHE STATED SHE WENT TO [facility] ON 12/10 OR 12/11 AND THEY DID HER INR THEN AND IT WAS 2.1 THEY WERE TO FAX OVER PAPER WORK BUT WE NEVER RECEIVED IT. Forwarded to Pharm.D to address. Electronically signed by: PERLITA MARTI 12/12/2024 12:27 PM * Sourav Amato - 12/09/2024 12:08 PM PDT Lab reminder call x1, [phone] Patient states She will go get one done Electronically signed by Sourav Amato Doctor Osteopathic 12/09/2024 12:08 PM * Sourav Amato - [...] 12/06/24 . Electronically signed by SOURAV AMATO Doctor Osteopathic 11/27/2024 4:15 PM documented in this encounter Plan of Treatment Upcoming Encounters Date Type Department Care Team (Late st Contact Info) Description 03/27/2025 8:45 AM PDT Orthopedic Office Visit ORTHOPEDICS [address] [place] [phone] David Palacios), [place].D. [address] [place] [phone] 04/01/2025 10:10 AM PDT Ancillary Procedure CARDIOLOGY [address] [id number] documented as of this encounter Procedures Procedure Name Priority Date/Time Associated Diagnosis Comments INR, FINGER STICK, POCT Routine 12/10/2024 11:28 AM PDT documented in this encounter Results * INR, FINGER STICK, POCT (12/10/2024 11:28 AM PDT) PT INR 2.06 Comment:[place] [address] [address] [place], [place] [id number] BLOOD 12/10/2024 11:2 8 AM PDT Juventino (Pharm.D) [place]asper PHARM.DLamar POCT documented in this encounter Visit Diagnoses Not on filedocumented in this encounter Care Teams Neck Skewer Relationship Specialty Start Date End Date Wilmer Ludwig), M.Familia. [address] [phone] PCP - General Family Practice 01/10/14 documented as of this encounter
--- OUTSIDE RECORDS SUMMARY | 2025-01-06 20:14 | XMS_ITS | Encounter Summary ---
Author Organization [facility] Address [address] [place] [address] Care Team Providers Care Industrial Garage Servicer Name Role Phone Wilmer Ludwig) Richie Primary Care Prov ider Unavailable Encounter Details Date Type Department Care Team (Late st Contact Info) Description 10/12/2022 Refill FAMILY PRACTICE [address] [place] [address] Wilmer Ludwig), MLamarD. [address] [place] [address] Medications Social History Tobacco Use [...] 8:45 AM PDT Orthopedic Office Visit ORTHOPEDICS [address] [place] [phone] David Palacios), [place] [address] [place] [phone] 04/01/2025 10:10 AM PDT Ancillary Procedure CARDIOLOGY [address] [id number] documented as of this encounter Visit Diagnoses Diagnosis ATRIAL FIBRILLATION, UNSPECIFIED ATRIAL FIBRILLATION documented in this encounter Care Teams Industrial Garage Servicer Relationship Specialty Start Date End Date Wilmer Ludwig), Dilma. [address] [phone] PCP - General [facility] Practice 01/10/14 documented as of this encounter
--- OUTSIDE RECORDS SUMMARY | 2025-01-06 20:14 | XMS_ITS | Encounter Summary ---
Author Organization [facility] Address [address] [facility] [place] [address] Care Team Providers Care Wood Casket Maker Name Role Phone Wilmer Ludwig) Richie Primary Care Prov ider Unavailable Encounter Details Date Type Department Care Team (Late st Contact Info) Description 05/12/2022 Orders Only SCAL IE E-VISITS ADMIN DEPT [address] [place] [address] Scal E-Visit, Provider (Richie)Richie [address] [place] [address] VACCINATION FOR SARS-COV-2 Social History Tobacco Use [...] 8:45 AM PDT Orthopedic Office Visit ORTHOPEDICS [address] [place] [address] David Palacios), M.D. [address] [phone] 04/01/2025 10:10 AM PDT Ancillary Procedure CARDIOLOGY [address] [id number] documented as of this encounter Visit Diagnoses Diagnosis VACCINATION FOR SARS-COV-2 documented in this encounter Care Teams Wood Casket Maker Relationship Specialty Start Date End Date Wilmer Ludwig), MTano. [address] [phone] PCP - General Family Practice 01/10/14 documented as of this encounter
--- OUTSIDE RECORDS SUMMARY | 2025-01-06 20:14 | XMS_ITS | Encounter Summary ---
Author Organization [facility] Address [address] [place] [address] Care Team Providers Care Plumber Supervisor Name Role Phone Wilmer Ludwgi M.D., M.D. Primary Care Prov ider Unavailable Encounter Details Date Type Department Care Team (Late st Contact Info) Description 05/01/2021 Home Care Visit [address] [address] Social History Tobacco Use Types [...] 8:45 AM PDT Orthopedic Office Visit ORTHOPEDICS [address] [place] [phone] David Palacios), [place]. [address] [place] [phone] 04/01/2025 10:10 AM PDT Ancillary Procedure CARDIOLOGY [address] [id number] documented as of this encounter Visit Diagnoses Not on filedocumented in this encounter Care Teams Plumber Supervisor Relationship Specialty Start Date End Date Wilmer Ludwig M.D., Dilma. [address] [phone] PCP - General Family Practice 01/10/14 documented as of this encounter
--- OUTSIDE RECORDS SUMMARY | 2025-01-06 20:14 | XMS_ITS | Encounter Summary ---
Author Organization [facility] Address [address] [place] [address] Care Team Providers Care Truck Driver Supervisor Name Role Phone Wilmer Ludwig M.D., M.D. Primary Care Prov ider Unavailable Encounter Details Date Type Department Care Team (Late st Contact Info) Description 05/08/2021 Home Care Visit [address] [address] Social History Tobacco Use Types [...] 8:45 AM PDT Orthopedic Office Visit ORTHOPEDICS [address] [place] [phone] David Palacios), [place]. [address] [place] [phone] 04/01/2025 10:10 AM PDT Ancillary Procedure CARDIOLOGY [address] [id number] documented as of this encounter Visit Diagnoses Not on filedocumented in this encounter Care Teams Truck Driver Supervisor Relationship Specialty Start Date End Date Wilmer Ludwig M.D., Dilma. [address] [phone] PCP - General Family Practice 01/10/14 documented as of this encounter
--- OUTSIDE RECORDS SUMMARY | 2025-01-06 20:14 | XMS_ITS | Encounter Summary ---
Author Organization [facility] Address [address] [place] [address] Care Team Providers Care Civil Project Engineer Name Role Phone Wilmer Ludwig) Richie Primary Care Prov ider Unavailable Encounter Details Date Type Department Care Team ([facility] Contact Info) Description 05/04/2021 Home Care Visit DEFAULT [facility] [address] [address] Social History Tobacco Use [...] Department Care Team (Late Contact Info) Description 03/27/2025 8:45 AM PDT Orthopedic Office Visit ORTHOPEDICS [address] [place] [phone] David Palacios), [place]agdal[place] [address] [place] [phone] 04/01/2025 10:10 AM PDT Ancillary Procedure CARDIOLOGY [address] [id number] documented as of this encounter Visit Diagnoses Not on filedocumented in this encounter Care Teams Civil Project Engineer Relationship Specialty Start Date End Date Wilmer Ludwig), MTano. [address] [phone] PCP - General Family Practice 01/10/14 documented as of this encounter
--- OUTSIDE RECORDS SUMMARY | 2025-01-06 20:14 | XMS_ITS | Clinical Summary ---
Author Organization [facility] Address [address] [place] [address] Care Team Providers Care Contaminated Land Consultant Name Role Phone Pcp, No Primary Care Provider Unavailabl e Allergies Active Allergy Reactions Criticality Noted Date Comments Cefuroxime Rash 06/08/2017 Codeine Hives 10/11/2012 Meperidine Hives 10/11/2012 Penicillins Hives 10/11/2012 Oxycodone-Acetaminophen Hives 10/11/2012 Oxycodone Yvo-Rylccgplv-Fne Hives 10/12/19 13 Sulfa (Sulfonamide Antibiotics) Hives [...] 0 11/14/2012 Active cloNIDine 0.1 mg/24 hr (EVIHJOUR-GCZ-8 ) 0.1 mg/24 hr patch 11/13/2018 Active [...] Overview (12/06/2017): Overview: Renal ultrasound 11/02/12 from [place]: 1. Unable to see the origin of the left renal artery due to calcification. There are elevated velocities in the left renal artery suggestion a hemodynamically significant stenosis. If clinically indicated, an angiogram with intent to treat could be considered. 2. Normal ultrasound appearance of the kidneys, bilaterally. Cardiac MRI performed on 11/02/12 in [place]: indication: severe Hypertension with suspected severe concentric [...] vaccine series (2023- season) 2024 Influenza Vaccine (#1) 2025 9, 03/03/2017, 03/22/2016, Additional history exists Pneumococcal series for age 50+ Completed 03/10/2015, 07/15/2011 Hepatitis B series for 19+ Aged Out N o longer eligible based on patient's age to complete this topic Care Teams Contaminated Land Consultant Relationship Specialty Start Date End Date Pcp, No . PCP - General 01/11/18
--- OUTSIDE RECORDS SUMMARY | 2025-01-06 20:14 | XMS_ITS | Encounter Summary ---
Author Organization [facility] Address [address] [place] [address] Care Team Providers Care Shoe Ironer Name Role Phone Wilmer Ludwig) Richie Primary Care Prov ider Unavailable Encounter Details Date Type Department Care Team (Late st Contact Info) Description 05/08/2021 Home Care Visit DEFAULT [facility] [address] [address] Social History Tobacco Use Types [...] 8:45 AM PDT Orthopedic Office Visit ORTHOPEDICS [address] [place] [address] David Palacios), Richie [address] [phone] 04/01/2025 10:10 AM PDT Ancillary Procedure CARDIOLOGY [address] [place] [address] documented as of this encounter Visit [...] Endurance Description: Physical Therapist and Phyiscal Therapist Lead Pl Sql Developer to perform ansd instruct a strengthening program. [...] Yes documented in this encounter Care Teams Shoe Ironer Relationship Specialty Start Date End Date Wilmer Ludwig), Richie [address] [place] [address] PCP - General Family Practice 01/10/14 documented as of this encounter
--- OUTSIDE RECORDS SUMMARY | 2025-01-06 20:14 | XMS_ITS | Encounter Summary ---
Author Organization [facility] Address [address] [place] [place] [address] Care Team Providers Care Federal Judicial Law Clerk Name Role Phone Wilmer Ludwig) MTano. Primary Care Prov ider Unavailable Encounter Details Date Type Department Care Team (Late st Contact Info) Description 12/30/2024 Anticoagulation [facility] [address] [place] [address] Yisel Hutchinson (Pharm.D), PHARM.D. [address] [place] [phone] Social History Tobacco Use Types Packs/Day Years [...] Notes * Yisel Hutchinson (Pharm.D), PHARM.D. - 12/30/2024 2:13 PM PDT Primary care physician: Wilmer Ludwig [...] or bruising Denied upcoming invasive procedures INR 1.89 12/28/2024 Indications: Atrial Fibrillation (I48.91) INR Low Range: 2 - INR High Range: 3 Warfarin Tab (MG): 2mg Lavender Current warfarin dose: 2mg daily exc 1mg Mon/Fri A/P: INR subtherapeutic Warfarin Dosing Instructions: incr 2mg daily exc 1mg Fri Follow up date: 01/13/25 Confirmed patient???s understanding of warfarin instruction by [...] or symptoms of clotting/stroke. Electronically signed by: YISEL HUTCHINSON PHARMD 12/30/2024 2:18 PM documented in this encounter Plan of Treatment Upcoming Encounters Date Type Department Care Team (Late st Contact Info) Description 03/27/2025 8:45 AM PDT Orthopedic Office Visit ORTHOPEDICS [address] [place] [phone] David Palacios), [place]dal[place] [address] [place] [phone] 04/01/2025 10:10 AM PDT Ancillary Procedure CARDIOLOGY [address] [id number] documented as of this encounter Visit Diagnoses Not on filedocumented in this encounter Care Teams Federal Judicial Law Clerk Relationship Specialty Start Date End Date Wilmer Ludwig)Richie [address] [phone] PCP - General Family Practice 01/10/14 documented as of this encounter
--- OUTSIDE RECORDS SUMMARY | 2025-01-06 20:15 | XMS_ITS | Encounter Summary ---
Author Organization [facility] Address [address] [place] [address] Care Team Providers Care Hand Counter Name Role Phone Wilmer Ludwig) Richie Primary Care Prov ider Unavailable Encounter Details Date Type Department Care Team (Late st Contact Info) Description 10/04/2023 Refill FAMILY PRACTICE [address] [place] [address] Wilmer Ludwig), MLamarD. [address] [place] [address] Medications Social History Tobacco Use [...] 8:45 AM PDT Orthopedic Office Visit ORTHOPEDICS [address] [place] [phone] David Palacios), M.[place]amilia. [address] [place] [phone] 04/01/2025 10:10 AM PDT Ancillary Procedure CARDIOLOGY [address] [id number] documented as of this encounter Visit Diagnoses Diagnosis HTN documented in this encounter Care Teams Hand Counter Relationship Specialty Start Date End Date Wilmer Ludwig), Dilma. [address] [phone] PCP - General Family Practice 01/10/14 documented as of this encounter
--- OUTSIDE RECORDS SUMMARY | 2025-01-06 20:15 | XMS_ITS | Encounter Summary ---
Author Organization [facility] Address [address] [place] [address] Care Team Providers Care Mammalogist Name Role Phone Wilmer Ludwig) Richie Primary Care Prov ider Unavailable Encounter Details Date Type Department Care Team (Late st Contact Info) Description 05/01/2021 Home Care Visit DEFAULT [facility] [address] [address] Social History Tobacco Use Types [...] 8:45 AM PDT Orthopedic Office Visit ORTHOPEDICS [address] [place] [phone] David Palacios), [place] [address] [place] [phone] 04/01/2025 10:10 AM PDT Ancillary Procedure CARDIOLOGY [address] [id number] documented as of this encounter Visit Diagnoses Not on filedocumented in this encounter Care Teams Mammalogist Relationship Specialty Start Date End Date Wilmer Ludwig), MLamarD. [address] [phone] PCP - General Family Practice 01/10/14 documented as of this encounter
--- OUTSIDE RECORDS SUMMARY | 2025-01-06 20:15 | XMS_ITS | Encounter Summary ---
Author Organization [facility] Address [address] [place] [address] Care Team Providers Care Spd Tech Name Role Phone Wilmer Ludwig) Richie Primary Care Prov ider Unavailable Encounter Details Date Type Department Care Team (Late st Contact Info) Description 12/30/2022 Refill FAMILY PRACTICE [address] [place] [address] Wilmer Ludwig), MLamarD. [address] [place] [address] Medications Social History Tobacco Use [...] 8:45 AM PDT Orthopedic Office Visit ORTHOPEDICS [address] [place] [phone] David Palacios), [place]amilia. [address] [place] [phone] 04/01/2025 10:10 AM PDT Ancillary Procedure CARDIOLOGY [address] [id number] documented as of this encounter Visit Diagnoses Diagnosis HTN documented in this encounter Care Teams Spd Tech Relationship Specialty Start Date End Date Wilmer Ludwig), Dilma. [address] [address] PCP - General Family Practice 01/10/14 documented as of this encounter
--- OUTSIDE RECORDS SUMMARY | 2025-01-06 20:15 | XMS_ITS | Encounter Summary ---
Author Organization [facility] Address [address] [place] [place] [address] Care Team Providers Care Waste Handling Technician Name Role Phone Wilmer Ludwig) Richie Primary Care Prov ider Unavailable Encounter Details Date Type Department Care Team (Late st Contact Info) Description 11/21/2024 Anticoagulation [facility] [address] [place] [address] Noah Dill (Pharm.D), PHARM.D. [address] [place] [phone] Social History Tobacco Use Types Packs/Day Years [...] faxed. Electronically signed by: Juventino Hutchinson PharmMagdalene Fiscal Clerk Pharmacist 11/27/2024 2:11 PM * Noah DillPharm.D), PHARM.Charbel - 11/21/2024 4:27 PM PDT No INR in process. Will have assistant manager quality management remind patient to return to lab for INR test TIM. Electronically signed by: NOAH DILL PHARMD 11/21/2024 4:27 PM documented in this encounter Nursing Notes * Sourav Amato - 11/27/2024 2:23 PM PDT Called patient to find out what lab patient went to ER in [facility] Spoke with Dew he will fax over results to us from her visit. Electronically signed by SOURAV AMATO Assistant Dean 11/27/2024 2:27 PM * Perlita Marti - 11/22/2024 12:04 PM PDT Lab reminder call x1, patient just went to lab this morning Electronically signed by PERLITA gilmore Assistant Dean 11/22/2024 12:04 PM documented in this encounter Plan of Treatment Upcoming Encounters Date Type Department Care Team (Late st Contact Info) Description 03/27/2025 8:45 AM PDT Orthopedic Office Visit ORTHOPEDICS [address] [place] [phone] David Palacios), [place] [address] [place] [phone] 04/01/2025 10:10 AM PDT Ancillary Procedure CARDIOLOGY [address] [id number] documented as of this encounter Procedures Procedure Name Priority Date/Time Associated Diagnosis Comments INR Routine 11/22/2024 documented in this encounter Results * INR (11/22/2024) PT INR 2.41 Comment:[facility] [address] [facility] [phone] BLOOD BLOOD / Unknown 11/22/2024 Juventino (Pharm.D) [place] PHARM.D. COAGULATION documented in this encounter Visit Diagnoses Not on filedocumented in this encounter Care Teams Waste Handling Technician Relationship Specialty Start Date End Date Wilmer Ludwig), MLamarD. [address] [phone] PCP - General Family Practice 01/10/14 documented as of this encounter
--- OUTSIDE RECORDS SUMMARY | 2025-01-06 20:15 | XMS_ITS | Encounter Summary ---
Author Organization [facility] Address [address] [facility] [place] [address] Care Team Providers Care Rn L And D Name Role Phone Wilmer Ludwig M.D., M.D. Primary Care Prov ider Unavailable Encounter Details Date Type Department Care Team (Late st Contact Info) Description 05/03/2024 Orders Only SCAL IE E-VISITS ADMIN DEPT [address] [place] [address] Scal E-Visit, Provider (Richie)Richie [address] [place] [address] VACCINATION FOR SARS-COV-2 Social History Tobacco Use [...] 8:45 AM PDT Orthopedic Office Visit ORTHOPEDICS [address] [place] [address] David Palacios), [place]am[place]. [address] [place] [phone] 04/01/2025 10:10 AM PDT Ancillary Procedure CARDIOLOGY [address] [id number] documented as of this encounter Visit Diagnoses Diagnosis VACCINATION FOR SARS-COV-2 documented in this encounter Care Teams Rn L And D Relationship Specialty Start Date End Date Wilmer Ludwig), MTano. [address] [phone] PCP - General Family Practice 01/10/14 documented as of this encounter
--- OUTSIDE RECORDS SUMMARY | 2025-01-06 20:15 | XMS_ITS | Encounter Summary ---
Author Organization [facility] Address [address] [place] [place] [address] Care Team Providers Care Chip Person Name Role Phone Wilmer Ludwig) Richie Primary Care Prov ider Unavailable Encounter Details Date Type Department Care Team ([facility] Contact Info) Description 04/29/2021 Home Care Visit DEFAULT [facility] [address] [address] Social History Tobacco Use Types [...] 8:45 AM PDT Orthopedic Office Visit ORTHOPEDICS [address] [place] [phone] David Palacios), [place]agdal[place] [address] [place] [phone] 04/01/2025 10:10 AM PDT Ancillary Procedure CARDIOLOGY [address] [id number] documented as of this encounter Visit Diagnoses Not on filedocumented in this encounter Care Teams Chip Person Relationship Specialty Start Date End Date Wilmer Ludwig), MTano. [address] [place] [place] [phone] PCP - General Family Practice 01/10/14 documented as of this encounter
--- OUTSIDE RECORDS SUMMARY | 2025-01-06 20:15 | XMS_ITS | Encounter Summary ---
Author Organization [facility] Address [address] [place] [address] Care Team Providers Care Technology Assistant Name Role Phone Wilmer Ludwig) Richie Primary Care Prov ider Unavailable Encounter Details Date Type Department Care Team (Late st Contact Info) Description 12/13/2024 Anticoagulation [facility] [address] [place] [address] Noah Dill (Pharm.D), PHARM.D. [address] [place] [phone] Social History Tobacco Use Types Packs/Day Years [...] No outside INR result received. Route to assistant professor of anthropology to verify if patient went to outside lab for INR. Please request result to be faxed if INR was done, or remind patient to RTL if INR was not done. Electronically signed by: Juventino Hutchinson Pharm.D. Pizza Delivery Pharmacist 12/27/2024 2:42 PM * Noah Dill Pharm.D, KIMBERLY - 12/13/2024 4:32 PM PDT Primary [...] clotting/stroke. Electronically signed by: NOAH DILL PHARMD 12/13/2024 4:41 PM documented in this encounter Nursing Notes * Sourav Amato - 12/30/2024 11:39 AM PDT Patient called to advise she had inr done over the weekend at [facility] and if we received the faxed over results yet or not I advised her we have not received any faxes from over the weekend [phone] to request INR results . Called spoke with [facility] who stated INR was 1.89 on 12/28 advised to fax over results to us Waiting on fax Electronically signed by SOURAV AMATO Pulp Mill Operator 12/30/2024 11:46 AM * Sourav Amato - 12/27/2024 4:07 PM PDT Lab reminder call x1, Patient states she was told 12/29 for iNR she will go then Electronically signed by Sourav Amato Pulp Mill Operator 12/27/2024 4:07 PM documented in this encounter Plan of Treatment Upcoming Encounters Date Type Department Care Team (Late st Contact Info) Description 03/27/2025 8:45 AM PDT Orthopedic Office Visit ORTHOPEDICS [address] [place] [phone] David Palacios), [place]. [address] [place] [phone] 04/01/2025 10:10 AM PDT Ancillary Procedure CARDIOLOGY [address] [phone] documented as of this encounter Procedures Procedure Name Priority Date/Time Associated Diagnosis Comments INR Routine 12/28/2024 documented in this encounter Results * INR (12/28/2024) PT INR 1.89 Comment:[facility] [id number] BLOOD BLOOD / Unknown 12/28/2024 Juventino (Pharm.D) [place] PHARM.DLamar COAGULATION documented in this encounter Visit Diagnoses Not on filedocumented in this encounter Care Teams Technology Assistant Relationship Specialty Start Date End Date Wilmer Ludwig), Dimla. [address] [place] [address] PCP - General Family Practice 01/10/14 documented as of this encounter
--- OUTSIDE RECORDS SUMMARY | 2025-01-06 20:15 | XMS_ITS | Encounter Summary ---
Author Organization [facility] Address [address] [place] [address] Care Team Providers Care Cupola Tender Helper Name Role Phone Wilmer Ludwig) Richie Primary Care Prov ider Unavailable Encounter Details Date Type Department Care Team (Late st Contact Info) Description 01/10/2023 Refill FAMILY PRACTICE [address] [place] [address] Wilmer Ludwig), MLamarD. [address] [place] [address] Medications Social History Tobacco Use [...] 8:45 AM PDT Orthopedic Office Visit ORTHOPEDICS [address] [place] [phone] David Palacios), M.[place]amilia. [address] [place] [phone] 04/01/2025 10:10 AM PDT Ancillary Procedure CARDIOLOGY [address] [id number] documented as of this encounter Visit Diagnoses Diagnosis HYPERLIPIDEMIA documented in this encounter Care Teams Cupola Tender Helper Relationship Specialty Start Date End Date Wilmer Ludwig), Dilma. [address] [place] [place] [phone] PCP - General Family Practice 01/10/14 documented as of this encounter
--- OUTSIDE RECORDS SUMMARY | 2025-01-06 20:15 | XMS_ITS | Encounter Summary ---
Author Organization [facility] Address [address] [place] [address] Care Team Providers Care Route Contractor Name Role Phone Wilmer Ludwig) Richie Primary Care Prov ider Unavailable Encounter Details Date Type Department Care Team (Late st Contact Info) Description 04/28/2021 Home Care Visit DEFAULT [facility] [address] [phone] Social History Tobacco Use Types [...] 8:45 AM PDT Orthopedic Office Visit ORTHOPEDICS [address] [place] [phone] David Palacios), [place] [address] [place] [phone] 04/01/2025 10:10 AM PDT Ancillary Procedure CARDIOLOGY [address] [id number] documented as of this encounter Visit Diagnoses Not on filedocumented in this encounter Care Teams Route Contractor Relationship Specialty Start Date End Date Wilmer Ludwig), MLamarD. [address] [place] [place] [phone] PCP - General Family Practice 01/10/14 documented as of this encounter
--- OUTSIDE RECORDS SUMMARY | 2025-01-06 20:15 | XMS_ITS | Clinical Summary ---
Author Organization [facility] Health Address [address] [facility] [place] [address] Care Team Providers Care Sterilizer Machine Operator Name Role Phone Unavailable Primary Care Provider Unavailabl e Allergies Active Allergy Reactions Criticality Noted Date Comments Cefuroxime Rash Low 06/08/2017 Noted with antibiotics given in [place]. Hydrochlorothiazide 12/19/2013 Hyponatremia in setting of HCTZ Meperidine Hives High 08/29/2011 Nsaids (Non-Steroidal Anti-Inflammatory Drug) High 02/24/2017 [id number] Heart Failure. Exception to this NSAID intolerance is aspirin 81-325mg daily and topical or ophthalmic nsaids' Opioids - Morphine Analogues Hives 012 Oxycodone Npf-Rzyeeihrt-Lwt Hives 10/12/19 13 Oxycodone-Acetaminophen Hives 07/22/2011 Penicillins Hives 07/22/2011 Sulfa (Sulfonamide Antibiotics) Hives,Rash Low 08/18/2011 Medications atorvastatin (LIPITOR) 10 mg tablet Take 10 mg by mouth. 01/11/20 23 025 Active benzonatate (TESSALON) 100 mg capsule 06/03/20 23 Active dilTIAZem CD (CARDIZEM CD) 120 mg [...] mouth 1 (one) time each day. 10/26/19 025 Active lisinopriL (PRINIVIL,ZEST RIL) 5 mg tablet Take 5 mg by mouth. 08/30/19 Active potassium chloride (KLOR-CON M20) 20 mEq CR tablet 05/22/20 Active warfarin (COUMADIN) 2 mg tablet Take by mouth as directed by Anticoagulation clinic 12/21/19 Active cloNIDine (CATAPRES-TTS) 0.1 mg/[address] 1 patch on the skin every 7 (seven) days. 12/31/19 23 025 Active Problems Problem Noted Date Diagnosed Date [...] Overview (08/08/2023): Overview: Renal ultrasound 11/02/12 from [place]: 1. Unable to see the origin of the left renal artery due to calcification. There are elevated velocities in the left renal artery suggestion a hemodynamically significant stenosis. If clinically indicated, an angiogram with intent to treat could be considered. 2. Normal ultrasound appearance of the kidneys, bilaterally. Cardiac MRI performed on 11/02/12 in [place]: indication: severe Hypertension with suspected severe concentric [...] renal artery stenosis. Renal ultrasound 11/02/12 from [place]: 1. Unable to see the origin of the left renal artery due to calcification. There are elevated velocities in the left renal artery suggestion a hemodynamically significant stenosis. If clinically indicated, an angiogram with intent to treat could be considered. 2. Normal ultrasound appearance of the kidneys, bilaterally. Cardiac MRI performed on 11/02/12 in [place]: indication: severe Hypertension with suspected severe concentric [...] Most Recently Relevant to Health Maintenance [facility]
--- OUTSIDE RECORDS SUMMARY | 2025-01-06 20:15 | XMS_ITS | Encounter Summary ---
Author Organization [facility] Address [address] [place] [address] Care Team Providers Care First Coat Sander Name Role Phone Wilmer Ludwig M.D., M.D. Primary Care Prov ider Unavailable Encounter Details Date Type Department Care Team (Late st Contact Info) Description 04/29/2021 Home Care Visit [address] [phone] Social History Tobacco Use Types [...] 8:45 AM PDT Orthopedic Office Visit ORTHOPEDICS [address] [place] [phone] David Palacios), [place]. [address] [place] [phone] 04/01/2025 10:10 AM PDT Ancillary Procedure CARDIOLOGY [address] [id number] documented as of this encounter Visit Diagnoses Not on filedocumented in this encounter Care Teams First Coat Sander Relationship Specialty Start Date End Date Wilmer Ludwig M.D., Dilma. [address] [place] [phone] PCP - General Family Practice 01/10/14 documented as of this encounter
--- OUTSIDE RECORDS SUMMARY | 2025-01-06 20:15 | XMS_ITS | Encounter Summary ---
Author Organization [facility] Health Address [address] [place] [address] Care Team Providers Care Fruit I Farmworker Name Role Phone Unavailable Primary Care Provider Unavailabl e Prior Encounters Date Type Department Care Team Description 11/16/2023 Travel 11/16/2023 10:00 AM PDT Office Visit [facility] [address], [place] [place] [address] [address] [facility] 08/08/2023 Travel 08/08/2023 10:00 AM PST Office Visit [facility] [address], [address] [place] [address] Zeeshan Cartwright DDS 07/22/2019 Converted 13x Documents [facility] [address] [place] [address] <No scans attached> 07/22/2019 Converted CPS Chart Documents [facility] [address], [address] [place] [phone] <No scans attached> Plan of Treatment Not [...] 10 ENDODONTIC THERAPY, PREMOLAR TOOTH (EXCLUDING FINAL WORSHIP) Routine 03/08/2013 12:00 AM PDT 8 ENDODONTIC THERAPY, PREMOLAR TOOTH (EXCLUDING FINAL WORSHIP) Routine 03/08/2013 12:00 AM PDT 5 ENDODONTIC THERAPY, PREMOLAR TOOTH (EXCLUDING FINAL WORSHIP) Routine 03/08/2013 12:00 AM PDT 4 ENDODONTIC THERAPY, PREMOLAR TOOTH (EXCLUDING FINAL WORSHIP) Routine 03/08/2013 12:00 AM PDT 29 ENDODONTIC THERAPY, PREMOLAR TOOTH (EXCLUDING FINAL WORSHIP) Routine 03/08/2013 12:00 AM PDT 29 CROWN [...] PDT Visit Diagnoses Not on file [facility]
--- OUTSIDE RECORDS SUMMARY | 2025-01-06 20:15 | XMS_ITS | Encounter Summary ---
Author Organization [facility] Address [address] [place] [address] Care Team Providers Care Scrap Burner Name Role Phone Wilmer Ludwig M.D., M.D. Primary Care Prov ider Unavailable Encounter Details Date Type Department Care Team (Late st Contact Info) Description 04/21/2021 Orders Only FAMILY MEDICINE CV19 VACCINE [address] [phone] Scal E-Visit, Provider Fabian)Richie [address] [place] [address] VACCINATION FOR SARS-COV-2 Social History Tobacco Use [...] 8:45 AM PDT Orthopedic Office Visit ORTHOPEDICS [address] [place] [phone] David Palacios), M.D. [address] [phone] 04/01/2025 10:10 AM PDT Ancillary Procedure CARDIOLOGY [address] [phone] documented as of this encounter Visit Diagnoses Diagnosis VACCINATION FOR SARS-COV-2 documented in this encounter Care Teams Scrap Burner Relationship Specialty Start Date End Date Wilmer Ludwig), Richie [address] [place] [phone] PCP - General Family Practice 01/10/14 documented as of this encounter
--- OUTSIDE RECORDS SUMMARY | 2025-01-06 20:15 | XMS_ITS | Encounter Summary ---
Author Organization [facility] Address [address] [place] [address] Care Team Providers Care Board Design Engineer Name Role Phone Wilmer Ludwig) Richie Primary Care Prov ider Unavailable Encounter Details Date Type Department Care Team (Late st Contact Info) Description 12/06/2021 Refill FAMILY PRACTICE [address] [place] [address] Wilmer Ludwig), MLamarD. [address] [place] [address] Medications Social History Tobacco Use [...] 8:45 AM PDT Orthopedic Office Visit ORTHOPEDICS [address] [place] [phone] David Palacios), M.[place]am[place]. [address] [place] [phone] 04/01/2025 10:10 AM PDT Ancillary Procedure CARDIOLOGY [address] [id number] documented as of this encounter Visit Diagnoses Diagnosis HYPERLIPIDEMIA documented in this encounter Care Teams Board Design Engineer Relationship Specialty Start Date End Date Wilmer Ludwig), MTano. [address] [place] [phone] PCP - General Family Practice 01/10/14 documented as of this encounter
--- OUTSIDE RECORDS SUMMARY | 2025-01-06 20:15 | XMS_ITS | Clinical Summary ---
Author Organization [facility] Address [address] [place] [address] Care Team Providers Care Hearing Aid Dispenser Name Role Phone Wilmer Ludwig M.D., M.D. Primary Care Prov ider Unavailable Source Comments NOTE: The information displayed by Care Everywhere is extracted from the complete medical record and may not identify all current or past patient conditions.[facility] Allergies Active Allergy Reactions Criticality Noted Date Comments Cefuroxime Axetil Skin Rash and/or Hives Low 06/08/2017 [place]ed [place]ed [place]. Codeine And Opiate Derivatives Skin Rash and/or Hives 07/22/2011 Meperidine Hcl High 08/29/2011 Metronidazole Other 10/20/2024 Nausea, GI upset Hydrochlorothiazide 12/19/2013 Hyponatremia in setting of HCTZ Hyponatremia in setting of HCTZ Meperidine Skin Rash and/or Hives High 08/29/2011 Non-Steroidal Anti-Inflammatory Agents High 02/24/2017 [id number] Heart Failure. Exception to this NSAID intolerance is aspirin 81-325mg daily and topical or ophthalmic nsaids' [id number] Heart Failure. Exception to this NSAID intolerance [...] the new one 12 Patch 4 06/12/2024 5 Active Atorvastatin (LIPITOR) 10 mg Oral TabIndications:HY PERLIPIDEMIA Take 1 tablet by mouth daily to lower cholesterol and keep arteries open 100 tablet 3 07/24/2024 6 Active Warfarin 2 mg Oral TabIndications:AN TICOAGULATION [...] times a day 100 tablet 3 10/21/2024 6 Active Amiodarone (PACERONE) 200 mg Oral TabIndications:AT RIAL FIBRILLATION W RAPID VENTRICULAR RESPONSE Take 2 tablets by mouth 2 times a day for 7 days, THEN 1 tablet daily for 60 days. 100 tablet 3 10/21/2024 6 Active Furosemide (LASIX) 20 mg Oral TabIndications:HT N (HYPERTENSION) Take 1 tablet by mouth daily (Take as needed for lower extremity edema) 30 tablet 12/03/2024 6 Active Active Problems Problem Noted Date Diagnosed Date CARE HOME AMIODARONE THERAPY 11/16/2024 SUPRAVENTRICULAR TACHYCARDIA, NONSUSTAINED 10/14 OSTEOARTHRITIS OF RIGHT HIP 08/08/2024 ACQUIRED CEREBRAL ATROPHY 06/20/2023 Overview (06/20/2023): CT Head 05/24/16 OSTEOARTHRITIS OF LEFT FOOT 04/25/2023 ATYPICAL CHEST PAIN 08/26/2022 SHORTNESS OF BREATH 08/26/2022 BILAT OPEN ANGLE GLAUCOMA 08/12/2022 RECURRENT UTI 08/05/2021 ANEMIA 11/06/2020 OSTEOARTHRITIS OF RIGHT FOOT 2020 HX OF NH, UNSPECIFIED TYPE 08/14/2019 NOT CURRENT SMOKER 04/11/2018 [...] 01/04/2013 Overview (01/04/2013): Renal ultrasound 11/02/12 from [place]: 1. [...] 04/24/2012 07/05/2013 ARTHRITIS OF RIGHT KNEE 03/23/2012 02/0 12/2016 FAMILY STRESS 03/19/2012 04/15/2015 BLOOD IN STOOL 09/16/2011 03/19/2012 SCREENING FOR COLON CANCER 09/16/2011 0 03/19/2012 DUPUYTRENS CONTRACTURE. 08/18/201104/02 Encounters Date Type Department Care Team Description 12/30/2024 [facility]tico[facility] [address] [place] [address] Juventino Hutchinson (Pharm.D), PHARM.D. 12/13/2024 Anticoagulation [facility] [address] [place] [address] Noah Dill (Pharm.D), PHARM.D. 11/27/2024 [facility]ticoagulation [facility] [address] [place] [address] Juventino Hutchinson (Pharm.D), PHARM.D. 11/21/2024 Anticoagulation [facility] [address] [place] [address] Noah Dill (Pharm.D), PHARM.D. 11/15/2024 11:40 AM PDT Telephone Appointment Visit [facility] [address] [place] [address] Wilmer Ludwig), M.D. ATRIAL FIBRILLATION, UNSPECIFIED (Primary Dx); HTN; HYPERLIPIDEMIA; PREDIABETES; OSTEOPOROSIS; ATHEROSCLEROSIS AORTA; OSTEOARTHRITIS OF LEFT KNEE; SENILE PURPURA; DIASTOLIC HEART FAILURE, CHRONIC (HFPEF); BILAT PRIMARY OPEN ANGLE GLAUCOMA; OSTEOARTHRITIS OF LEFT HIP; HX OF NH, UNSPECIFIED TYPE; CKD STAGE 3A (GFR 45-59); SUPRAVENTRICULAR TACHYCARDIA, NONSUSTAINED; ANTICOAGULATION MONITORING, INR 2.0-3.0; ANEMIA 11/12/2024 Anticoagulation [facility] [place] [address] Juventino Hutchinson (Pharm.D), PHARM.D. 11/06/2024 3:00 PM PDT Office Visit CARDIOLOGY [address] [place] [address] Melanie Osuna (N.P.), N.P. ATRIAL FIBRILLATION, PAROXYSMAL; HTN; HYPERLIPIDEMIA; PRESENCE OF CARDIAC PACEMAKER 11/05/2024 Anticoagulation [facility] [address] [place] [address] Noah Dill (Pharm.D), PHARM.D. 11/04/2024 Telephone [facility] [address] [place] [address] Wilmer Ludwig), MLamarD. TEST RESULTS 11/01/2024 Call Center Telephon e Encounter [facility] [place] [address] Francheska Lares), MTano. APPOINTMENT REQUEST, ROUTINE ([facility], CARDIOLOGY) 10/30/2024 Anticoagulation [facility] [address] [place] [address] Noah Dill (Pharm.D), PHARM.D. 10/30/2024 Telephone [facility]ACT[facility] [address] [place] [address] Tessy Kerr), M.Familia. 10/29/2024 Telephone [facility] [place] [address] Shante Anglin (Pharm.D), PHARM.D. PHARMACY ANTICOAGULATION CLINIC SERVICE 10/26/2024 10:10 AM PDT Telephone Appointment Visit [facility] [address] [place] [address] Tessy Kerr), M.Familia. AFTERCARE FOLLOWING HOSPITALIZATION (Primary Dx); ANEMIA; ATRIAL FIBRILLATION W RAPID VENTRICULAR RESPONSE 10/23/2024 Anticoagulation [facility] [place] [address] Noah Dill (Pharm.D), PHARM.D. 10/22/2024 Transitional Care Mgmnt-Telephone CONT[facility] [place] [address] Uche Hensley (R.N.), R.N. HOSPITAL FOLLOW UP (Transitional Care Management / Post Hospital Discharge Call - Continuing Care Services /) 10/22/2024 Anticoagulation [facility] [address] [place] [address] Noah Dill (Pharm.D), PHARM.D. 10/14/2024 10:54 AM PDT - 10/21/2024 5:11 PM PDT Hospital Encounter [facility] [address] [place] [address] Fariha Hermosillo), MTano. Catalino Shine), MEder Le (D.O.), D.O. Regine Peace (D.O.), D.O. ATRIAL FIBRILLATION W RAPID VENTRICULAR RESPONSE Discharge Disposition: Home or Self Care. 10/14/2024 10:00 AM PDT Office Visit [facility] [address] [place] [phone] [facility] (P.ALamar)BereALamar ABDOMINAL PAIN (Primary Dx) 10/08/2024 10:45 AM PDT Allied Health/Nurse Visit OPHTHALMOLOGY [id number] [place] [address] Genna Choudharyun SCREENING 10/08/2024 10:00 AM PDT Allied Health/Nurse Visit OPHTHALMOLOGY [address] [place] [address] Carlene Ortiz (M.A.), M.A. VISUAL FIELD TEST [...] and over (FLUVIRIN ) (Influenza) 03/10/2015,05/20/2014,04/11/2013 PCV13 ([id number]) (Pneumococ deepali conjugate, 13 valent) 03/10/2015 PPSV23 [...] 8:45 AM PDT Orthopedic Office Visit ORTHOPEDICS [address] [place] [address] David Palacios), M.Charbel [address] [place] [address] 04/01/2025 10:10 AM PDT Ancillary Procedure CARDIOLOGY [address] [id number] Health Maintenance Due Date Last Done Comments IMM RSV (75 YRS AND OLDER) ( 1 - 1-dose 75+ series) 2019 IMM COVID-19 (6 MO AND OLDER ) (5 - 2023- season) 2024 11/09/2021, 06/09/2021, 08/18/2020, Additional history exists IMM INFLUENZA (6 MO AND OLDE R) (#1) 03/03/2025 03/11/2024, 04/14/2023, 04/06/2022, Additional history exists IMM DTAP,TDAP,TD (42 DAYS-12 0 YRS) (5 - Td or Tdap) 08/12/2032 08/12/2022, 08/01/2012, 08/01/2012, Additional history exists IMM PNEUMOCOCCAL Completed 03/10/2015, 07/15/2011 IMM ZOSTER (19 YRS AND OLDER) Completed , 09/25/2018, 08/01/2012 Medical Devices Implanted Type Area Health Information Assistant Device Identifier Shelf Expiration Date Model / Serial / Lot Pacemaker Cardiac .75cm 4.45x5.88cm Accolade Mri Latitude Nxt Pacesafe Easyview 2 [facility] Is - [id number] Implanted:Qt y: 1 on 05/23/2023 by Fanny Jade), MMagdalene Cardiac Implant N/A: Chest BSCI - CARDIAC RHYTHM MGMT [id number] 03/28/2025 [id number] / [id number] / NA Lead Straight Ingevity+ Af Is1 7841 52cm Red - [id number] Implanted:Qt y: 1 on 05/23/2023 by Fanny Jade), MMagdalene Cardiac Implant Right: Ventricle BSCI - CARDIAC RHYTHM MGMT 04/26/2025 [id number] / [id number] / NA Lead Straight Ingevity+ Af Is1 7840 45cm White - [id number] Implanted:Qt y: 1 on 05/23/2023 by Fanny Jade)Richie Cardiac Implant Right: Atrium BSCI - CARDIAC RHYTHM MGMT 04/16/2025 7840 / [id number] / NA Lens Iol +18.5 Sydney Biconvex 13mm 6mm Post Chmbr 1 Pc Foldable Uv Absorb Modif L - [id number] Implanted:Qt y: 1 on 07/17/2014 by Juancarlos Arboleda)Richie Eye Right: Eye [employer] [id number] 04/01/2019 SN60 WF185 / [id number] / Lens Iol +18.5 Sydney Biconvex 13mm 6mm Post Chmbr 1 Pc Foldable Uv Absorb Modif L - [id number] Implanted:Qt y: 1 on 08/12/2014 by Juancarlos Arboleda)Richie Eye Left: Eye [employer] [id number] 10/30/2018 SN60 WF185 / [id number] / Liner Acetabular Altrx Neutral 54mm 36mm Hip - [id number] Implanted:Qt y: 1 on 04/28/2021 by David Palacios)Richie Orthopedic Left: Hip [employer] [id number] 11/30/2025 [id number] 4 / / [id number] Acetabular 54mm [place] Sector Series Hip - [id number] Implanted:Qt y: 1 on 04/28/2021 by David Palacios)Richie Orthopedic Left: Hip [employer] [id number] 11/30/2030 [id number] 4 / / [id number] Stem Fem 160mm 8 06/15 High Offset Taper [place] Hip - [id number] Implanted:Qt y: 1 on 04/28/2021 by David Palacios)Richie Orthopedic Left: Hip [employer] DEPUY [id number] 01/30/2030 [id number] 0 / / [id number] Head Fem +1.5mm Thk6 Mil 06/15 Taper 36mm Hip Cementless Ceramic Articul/Jose - [id number] Implanted:Qt y: 1 on 04/28/2021 by David Palacios)Richie Orthopedic Left: Hip [employer] [id number] 10/30/2025 [id number] 0 / / [id number] Screw Bone 6.5mm 25mm [place] 4 Point Cut Flute Hip Acetabular Cancell Self Tap Hex - [id number] Implanted:Qt y: 1 on 04/28/2021 by David Palacios)Rcihie Screws/Plate s/Wires Left: Hip [employer]PUY [id number] 03/02/2031 [id number] / / [id number] Procedures Procedure Name Priority Date/Time Associated Diagnosis Comments INR Routine 12/28/2024 INR, FINGER STICK, POCT Routine 12/11/19 11:28 [...] PAIN from Last 3 Months Results * INR (12/28/2024) Only the most recent of15 resultswithin the time period is included. PT INR 1.89 Comment:[facility] [id number] BLOOD BLOOD / Unknown 12/28/2024 Jbam (Pharm.D) [place] PHARM.DLamar COAGULATION * INR, FINGER STICK, POCT (12/10/2024 11:28 AM PDT) PT INR 2.06 Comment:[facility] [address] [place], [place] [id number] BLOOD 12/10/2024 11:2 8 AM PDT Jbam (Pharm.D) [place] PHARM.DLamar POCT * POTASSIUM (11/04/2024 8:41 AM PDT) Only the most recent of4 resultswithin the time period is included. POTASSIUM 4.0 3.5 - 5.1 mEq/L [facility], CLINICAL PATHOLOGY [facility] Comment: Please review results carefully for any changes to reference ranges (indicated by R superscript). Deployment of new chemistry analyzers is occurring across [facility] through 2026. BLOOD / Unknown 11/04/2024 8 :41 AM PDT Narrative [facility], CLINICAL PATHOLOGY [facility] - 11/04/2024 3:11 PM PDT [facility] ACCN: [id number] Wilmer Peralta) Oziel Quiroz SERUM CHEM ISTRY [facility], [facility] PATH[facility] [address] [place] [address] * CREATININE (10/29/2024 12:10 PM PDT) Only the most recent of10 resultswithin the time period is included. CREATININE 0.87 0.57 - 1.11 mg/dL [facility] Comment: Please review results carefully for any changes to reference ranges (indicated by R superscript). Deployment of new chemistry analyzers is occurring across [facility] through 2026. EGFR, CREATININE-BASED FORMULA (CKD-EPI 2020) 67 >=60 mL/min/BSA [facility] Comment: GFR estimate is by the [...] Unknown 10/29/2024 1 2:10 PM PDT Narrative [facility] - 10/30/2024 2:29 AM PDT [facility] ACCN: [id number] Tessy Peralta) Usha Quiroz SERUM CH EMISTRY [facility] [address] [place] [address] * (ABNORMAL) ELECTROLYTE PANEL (NA, K, CL, CO2) (10/29/2024 12:10 PM PDT) Only the most recent of2 resultswithin the time period is included. SODIUM 137 136 - 145 mEq/L [facility] POTASSIUM 3.0(L) 3.5 - 5.1 mEq/L [facility], [facility] CHLORIDE 101 98 - 113 mEq/L [facility], [facility] CO2 27 23 - 31 mEq/L [facility], [facility] Comment: Please review results carefully for any changes to reference ranges (indicated by R superscript). Deployment of new chemistry analyzers is occurring across [facility] through 2026. BLOOD / Unknown 10/29/2024 1 2:10 PM PDT Narrative [facility], [facility] - 10/30/2024 2:29 AM PDT [facility] ACCN: [id number] Tessy Peralta) Usha Quiroz SERUM CH EMISTRY [facility] REFERENCE [facility], [facility] [address] [place] [address] * (ABNORMAL) CBC NO DIFFERENTIAL (10/29/2024 12:10 PM PDT) WBC'S AUTO 8.3 4.0 - 11.0 x1000/mcL [facility], [facility] RBC, AUTO 3.75 3.70 - 5.20 Mill/mcL [facility], [facility] HGB 10.6(L) 11.5 - 16.0 g/dL [facility], [facility] HCT, AUTO 32.5(L) 35.0 - 47.0 % [facility], [facility] MCV 86.7 81.0 - 99.0 fL [facility], [facility] MCH 28.3 25.0 - 35.0 pg/cell [facility], [facility] MCHC 32.6 30.0 - 35.0 g/dL [facility], [facility] RDW, BLOOD 14.6 11.5 - 16.0 % [facility], [facility] PLATELETS, AUTOMATED COUNT 482(H) 130 - 400 x1000/mcL [facility], CLINICAL PATHOLOGY [facility] BLOOD / Unknown 10/29/2024 1 2:10 PM PDT Narrative [facility], CLINICAL PATHOLOGY [facility] - 10/30/2024 12:32 AM PDT [facility] ACCN: [id number] Tessy Peralta) Usha Quiroz HEMATOLO GY Performing Organization Address City/[facility]/ZIP Co de Phone Number [facility], CLINICAL PATHOLOGY [facility] [address] [place] [address] * LIVER FUNCTION PANEL (TBILI, ALT, ALKP) (10/22/2024 1:16 PM PDT) ALT 14 <=54 U/L [facility] ALKALINE PHOSPHATASE 50 <=125 U/L [facility] BILIRUBIN, TOTAL 0.6 <=1.0 mg/dL [facility] BLOOD / Unknown 10/22/2024 1 :16 PM PDT Narrative [facility] - 10/22/2024 7:47 PM PDT [facility] ACCN: [id number] Ashok Lorenzou (P.A.) Umah-Mgborogwu P. A. SERUM CHEMISTRY Performing Organization Address [facility] de Phone Number [facility] [address] [place] [address] * BUN (10/22/2024 1:16 PM PDT) Only the most recent of9 resultswithin the time period is included. BUN 9 <=18 mg/dL [facility] BLOOD / Unknown 10/22/2024 1 :16 PM PDT Narrative [facility] - 10/22/2024 7:40 PM PDT [facility] ACCN: [id number] Ashok Tocannamariekwu (P.A.) Umah-Mgborogwu P. A. SERUM CHEMISTRY Performing Organization Address City/[facility]/ZIP Co de Phone Number [facility] [address] [place] [address] * LIPASE (10/22/2024 1:16 PM PDT) Only the most recent of2 resultswithin the time period is included. Pathologist [facility] LIPASE 39 <=58 U/L [facility] BLOOD / Unknown 10/22/2024 1 :16 PM PDT Narrative [facility] - 10/22/2024 7:47 PM PDT [facility] ACCN: [id number] Ashok Batres (P.A.) Um-Mgborogwu P. A. SERUM CHEMISTRY [facility] [address] [place] [address] * (ABNORMAL) CBC W AUTOMATED DIFFERENTIAL (10/22/2024 1:16 PM PDT) Only the most recent of9 resultswithin the time period is included. Pathologist [facility] WBC'S AUTO 10.7 4.0 - 11.0 x1000/mcL [facility] RBC, AUTO 3.75 3.70 - 5.20 Mill/mcL [facility] HGB 10.5(L) 11.5 - 16.0 g/dL [facility] HCT, AUTO 31.4(L) 35.0 - 47.0 % [facility] MCV 83.7 81.0 - 99.[address] [facility] MCH 28.0 25.0 - 35.0 pg/cell [facility] MCHC 33.4 30.0 - 35.0 g/dL [facility] RDW, BLOOD 14.3 11.5 - 16.0 % [facility] PLATELETS, AUTOMATED COUNT 569(H) 130 - 400 x1000/mcL [facility] BLOOD / Unknown 10/22/2024 1 :16 PM PDT Narrative [facility] - 10/22/2024 7:50 PM PDT [facility] ACCN: [id number] Ashok Lorenzou (P.A.) Umah-Mgborogwu P. A. HEMATOLOGY Performing Organization Address [facility] Co de Phone Number [facility] [address] [place] [address] * (ABNORMAL) B-TYPE NATRIURETIC PEPTIDE (BNP) (10/22/2024 1:16 PM PDT) Only the most recent of3 resultswithin the time period is included. Pathologist [facility] B TYPE NATRIURETIC PEPTIDE 820(H) <=99 pg/mL [facility] Comment: Less than 100: Not likely heart failure 100-500: Indeterminate range Greater than 500: Heart failure likely For Indeterminate results, one must consider the following: Baseline BNP value elevated due to stable underlying dysfunction; right ventricular failure present from COR Pulmonale; Acute pulmonary embolism or renal failure. BLOOD / Unknown 10/22/2024 1 :16 PM PDT Narrative [facility] - 10/22/2024 7:27 PM PDT [facility] ACCN: [id number] Ashok Kitchenkwu (P.A.) [facility]-Mgborogwu P. A. SERUM CHEMISTRY Performing Organization Address City/[facility] Co de Phone Number [facility] [address] [place] [address] * (ABNORMAL) WBC AUTO DIFF (10/22/2024 1:16 PM PDT) Only the most recent of9 resultswithin the time period is included. Pathologist [facility] NEUTROPHILS %, AUTOMATED COUNT 79.3 [facility] LYMPHOCYTES %, AUTOMATED COUNT 10.7 [facility] MONOS %, AUTO 6.1 [facility] EOSINOPHILS %, AUTOMATED COUNT 1.6 [facility] BASOPHILS %, AUTOMATED COUNT 0.6 [facility] IMMATURE GRANULOCYTES %, AUTOMATED COUNT 2 [facility] RBC NUCLEATED AUTO COUNT, BLD 0 <=0 % [facility] NEUTROPHILS, ABSOLUTE, AUTOMATED COUNT 8.50(H) 1.80 - 7.70 x1000/mcL [facility] LYMPHOCYTES, AUTOMATED COUNT 1.15 1.00 - 3.60 x1000/mcL [facility] MONOCYTES, AUTOMATED COUNT 0.65 0.10 - 1.00 x1000/mcL [facility] EOSINOPHILS, AUTOMATED COUNT 0.17 0.00 - 0.70 x1000/mcL [facility] BASOPHILS, AUTOMATED COUNT 0.06 0.00 - 0.20 x1000/mcL [facility] IMMATURE GRANULOCYTES, AUTOMATED COUNT 0.18(H) 0.01 - 0.09 x1000/mcL [facility] BLOOD / Unknown 10/22/2024 1 :16 PM PDT Narrative [facility] - 10/22/2024 7:50 PM PDT [facility] ACCN: [id number] Ashok Batres (P.A.) Rico-Mgmary annu P. A. HEMATOLOGY Performing Organization Address City/[facility] Co de Phone Number [facility] [id number] [place] [address] * GLUCOSE (10/22/2024 1:16 PM PDT) Only the most recent of2 resultswithin the time period is included. Pathologist [facility] GLUCOSE, RANDOM 107 70 - 140 mg/dL [facility] BLOOD / Unknown 10/22/2024 1 :16 PM PDT Narrative [facility] - 10/22/2024 7:40 PM PDT [facility] ACCN: [id number] Ashok Batres (P.A.) Rico-Mgmary annu P. A. SERUM CHEMISTRY Performing Organization Address City/[facility]/ZIP Co de Phone Number [facility] [id number] [place] [address] * (ABNORMAL) ELECTROLYTE PANEL (NA, K, CL, CO2, ANION GAP) (10/21/2024 4:37 AM PDT) Only the most recent of13 resultswithin the time period is included. SODIUM 127(L) 135 - 145 mEq/L [facility] POTASSIUM 3.6 3.5 - 5.0 mEq/L [facility] CHLORIDE 96(L) 101 - 111 mEq/L [facility] CO2 22 21 - 31 mEq/L [facility] ANION GAP (NA - (CL + CO2)) 9 3 - 11 mEq/L [facility] BLOOD / Unknown 10/21/2024 4 :37 AM PDT Keyon Peralta) Azael Quiroz SER UM CHEMISTRY Performing Organization Address [facility] Co de Phone Number [facility] [address] [place] [address] * (ABNORMAL) PHOSPHATE (10/21/2024 4:37 AM PDT) Only the most recent of2 resultswithin the time period is included. PHOSPHORUS 2.6(L) 2.7 - 4.5 mg/dL [facility] BLOOD / Unknown 10/21/2024 4 :37 AM PDT Regine SantamariaD.O.) Kobi Witt SERUM SIX PACK PACKER RY Performing Organization Address [facility] Co de Phone Number [facility] [address] [place] [address] * MAGNESIUM (10/21/2024 4:37 AM PDT) Only the most recent of9 resultswithin the time period is included. MAGNESIUM 2.3 1.7 - 2.8 mg/dL [facility] Comment: Magnesium results between 4.9 mg/dL and 9.7 mg/dL are not considered critical for patients receiving MgSO4 therapy. BLOOD / Unknown 10/21/2024 4 :37 AM PDT Eder Sanchez.[place]) Javad Witt SERUM CHEMISTRY Performing Organization Address [facility] Co de Phone Number [facility] [address] [place] [address] * (ABNORMAL) GLUCOSE, FASTING (10/21/2024 4:37 AM PDT) Only the most recent of7 resultswithin the time period is included. GLUCOSE, FASTING 117(H) 70 - 99 mg/dL [facility] Comment: A repeatable fasting blood [...] Y Performing Organization Address [facility] de Phone Number [facility] [id number] [address] * SODIUM, URINE (10/20/2024 9:59 PM PDT) SODIUM, URINE 56 mEq/L [facility] Comment: To precisely quantify excretion, please collect 24 hour urine. URINE 10/20/2024 9:59 PM PDT Keyon Peralta) Azael GARCIA CHEMISTRY Performing Organization Address [facility] Phone Number [facility] [id number] [place] [address] * OSMOLALITY, URINE (10/20/2024 9:59 PM PDT) OSMOLALITY, URINE 625 50 - 1,200 mOsm/kg [facility] Comment: Reference Range for Urine Osmolality: Random Specimen : 50-1200 mOsm/kg H2O 24 Hr Specimen: Age: 0-1 Month : 50-645 mOsm/kg H2O Age: 1 Month-Adult : 50-900 mOsm/kg H2O URINE 10/20/2024 9:59 PM PDT Keyon Peralta) Azael GARCIA CHEMISTRY Performing Organization Address [facility] de Phone Number [facility] [address] [place] [address] * (ABNORMAL) OSMOLALITY, SERUM (10/20/2024 12:07 PM PDT) Pathologist [facility] MEASURED OSMOLALITY 263(L) 280 - 305 mOsm/kg [facility] BLOOD / Unknown 10/20/2024 1 2:07 PM PDT Keyon Peralta) Azael Quiroz SER CHEMISTRY [facility] [address] [place] [address] * XR CHEST 1 VIEW (10/19/2024 4:34 [...] PDT) STREPTOCOCCUS PNEUMONIAE AG, URINE Negative Negative [facility] Comment: Adults with pneumococcal pneumonia sensitivity 50-80%; specificity 90%. Children with pneumococcal pneumonia sensitivity 80-90%; specificity 60-80%. URINE 10/16/2024 7:37 PM PDT Eder Santoro (D.O.) Leeroycera D.O. IMMUNOLOGY Performing Organization Address City/[facility]/ZIP Co de Phone Number [facility] [address] [place] [address] * LEGIONELLA PNEUMOPHILA ANTIGEN, URINE, IMMUNOASSAY (10/16/2024 7:37 PM PDT) [facility] LEGIONELLA PNEUMOPHILA AG, URINE, EIA Presumptive Negative Presumptive Negative [facility] Comment: Presumptive positive for the presence of L. pneumophila serogroup 1 antigen in urine, suggesting current or past infection. Please submit a respiratory specimen for LEGIONELLA SPECIES CULTURE [[facility] order code: [id number]]. Urinary Legionella antigen may persist long after active infection has resolved. More conclusive evidence of active infection is obtained from LEGIONELLA SPECIES CULTURE [[facility] order code: [id number]], Results of this assay should be interpreted [...] 10/16/2024 7:37 PM PDT Eder Santoro (D.O.) Leeroycera D.O. OUTSIDE TESTING Performing Organization Address City/[facility] Co de Phone Number [facility] [address] [place] [address] * SARS-COV-2 (COVID-19), INFLUENZA A + B, MULTIPLEX STACY (10/16/2024 11:45 AM PDT) Pathologist [facility] SARS-COV-2 (COVID-19), QUALITATIVE, STACY Not Detected Not Detected [facility] INFLUENZA VIRUS A, PCR Not Detected Not Detected [facility] INFLUENZA VIRUS B RNA, PCR Not Detected Not Detected [facility] Comment: Positive results do not [...] 11:4 5 AM PDT Eder SantamariaD.O.) Javad D.O. VIROLOGY Performing Organization Address [facility] Co de Phone Number [facility] [address] [place] [address] * CLOSTRIDIUM DIFFICILE GDH AG, TOXINS A, B W REFLEX TO PCR (10/15/2024 10:11 AM PDT) CLOSTRIDIOIDES (CLOSTRIDIUM) DIFFICILE AG AND TOXINS A+B, STOOL Negative Negative [facility] Comment: A finding of I ndeterminate represents discrepant immunoassay results obtained for GDH (antigen specific to C. difficile) and toxin production. Molecular testing (nucleic acid amplification) will follow to confirm results. STOOL 10/15/2024 10:1 1 AM PDT Eder Santoro (D.O.) Javad D.O. MICROBIOLOGY Performing Organization Address [facility] Co de Phone Number [facility] [address] [place] [address] * (ABNORMAL) HEPARIN THERAPY, APTT (10/15/2024 8:12 AM PDT) Only the most recent of2 resultswithin the time period is included. APTT 52(L) 68 - [address] [facility] BLOOD / Unknown 10/15/2024 8 :12 AM PDT Anish (R.P.H.) Aniyah HARRIS COAGULATION Performing Organization Address [facility] de Phone Number [facility] [id number] [place] [address] * (ABNORMAL) UNFRACTIONATED HEPARIN, ANTI FACTOR XA (10/15/2024 8:12 AM PDT) Only the most recent of2 resultswithin the time period is included. Pathologist [facility] HEPARIN, UNFRACTIONATED <0.10(L) 0.30 - 0.70 IU/mL [facility] BLOOD / Unknown 10/15/2024 8 :12 AM PDT Anish (R.P.H.) Aniyah HARRIS COAGULATION Performing Organization Address [facility] de Phone Number [facility] [address] [place] [address] * (ABNORMAL) ALBUMIN (10/15/2024 5:57 AM PDT) Pathologist [facility] ALBUMIN 2.4(L) 3.3 - 4.8 g/dL [facility] BLOOD / Unknown 10/15/2024 5 :57 AM PDT Catalino Peralta) Rl Quiroz SERUM CHEMISTR Y Performing Organization Address [facility] de Phone Number [address] [address] * BACTERIAL GI PANEL (SALMONELLA, SHIGELLA/EIEC, CAMPYLOBACTER, SHIGA TOXIN DNA), STOOL, MULTIPLEX PCR (10/14/2024 10:38 PM PDT) Pathologist [facility] SALMONELLA SPECIES DNA, STOOL, QL, PCR Not Detected Not Detected [facility], [facility] SHIGELLA SP+EIEC DNA, STOOL, QL, PCR Not Detected Not Detected [facility] , [facility] - [facility] CAMPYLOBACTER COLI/JEJUNI DNA, STOOL, QL, PCR Not Detected Not Detected [facility] , [facility] SHIGA TOXIN GENES, PCR Not Detected Not Detected [facility], [facility] Comment: A Not Detected result may [...] Rl Quiroz MICROBIOLOGY Performing Organization Address [facility] Co de Phone Number [facility] [address] [address] * BLOOD CULTURE (10/14/2024 4:14 PM PDT) Only the most recent of2 resultswithin the time period is included. FINAL RESULT No growth at 5 days. [facility] BLOOD / Unknown 10/14/2024 4 :14 PM PDT Catalino Shine M.D. MICROBIOLOGY Performing Organization Address [facility] Co de Phone Number [facility] [address] [address] * (ABNORMAL) TROPONIN I, HIGH SENSITIVITY (10/14/2024 3:55 PM PDT) Only the most recent of2 resultswithin the time period is included. TROPONIN I, HIGH SENSITIVITY 24(H) <=12 pg/mL [facility] Comment: Symptom hsTnI (pg/mL) Delta hsTnl Interpretation Duration M F (pg/mL) >=18y/o M <18y/o Any >100 >75 Myocardial Injury >3 hours <=20 <=12 No Myocardial Injury 21-100 13-75 Rpt TnI in 2 hrs.Calc Delta <=5 No NH 6-10 Indeterminate >10 Acute Myocardial Injury *Troponin values may be elevated in clinical conditions other than acute coronary syndrome. BLOOD / Unknown 10/14/2024 3 :55 PM PDT Catalino Peralta) Rl Quiroz IMMUNOLOGY Performing Organization Address City/State/[facility] Co de Phone Number [facility] [address] [place] [address] * CT ABD AND PELVIS NO CONTRAST [...] per protocol. CT Dose: As required by [place] law, the CTDIvol and DLP radiation doses [...] of the lumbar spine. Procedure Note Catalino Purdy), MMagdalene - 10/14/2024 CLINICAL HISTORY: Reason: generalized abdominal pain, history of CKD Ifafter hours, there needs to be MD to MD contact for scheduling. COMPARISON: No previous study available. TECHNIQUE: Study performed per protocol. CT Dose: As required by [place] law, the CTDIvol and DLP radiation dosesassociated [...] M.D. CT * TRANSTHORACIC ECHO (TTE) LIMITED, (10/14/2024 [...] LACTATE, SER/PLAS 1.0 0.5 - 1.9 mmol/L [facility] BLOOD / Unknown 10/14/2024 2 :04 PM PDT Narrative [facility] - 10/14/2024 2:23 PM PDT Fariha Peralta) Jaimee Quiroz SERUM CHEM ISTRY Performing Organization Address City/[facility]/ZIP Co de Phone Number [facility] [address] [employer] [address] * (ABNORMAL) CALCIUM (10/14/2024 2:04 PM PDT) CALCIUM 8.0(L) 8.5 - 10.7 mg/dL [facility] BLOOD / Unknown 10/14/2024 2 :04 PM PDT Fariha Peralta) Jaimee Quiroz SERUM CHEM ISTRY [facility] [address] [place] [address] * (ABNORMAL) LACTIC ACID W REFLEX TO REPEAT (10/14/2024 11:06 AM PDT) LACTATE, SER/PLAS 2.3(H) 0.5 - 1.9 mmol/L [facility] BLOOD / Unknown 10/14/2024 1 1:06 AM PDT Fariha Peralta) Jaimee Quiroz SERUM CHEM ISTRY Performing Organization Address [facility] Co de Phone Number [facility] [address] [place] [address] * ALT (10/14/2024 11:06 AM PDT) ALT 15 <=54 U/L [facility] BLOOD / Unknown 10/14/2024 1 1:06 AM PDT Kelly Peralta) Yvan Quiroz SERUM CHEMISTRY Performing Organization Address [facility] de Phone Number [facility] [address] [place] [address] * AST (10/14/2024 11:06 AM PDT) AST 20 <=30 U/L [facility] BLOOD / Unknown 10/14/2024 1 1:06 AM PDT Kelly Peralta) Yvan Quiroz SERUM CHEMISTRY Performing Organization Address [facility] Co de Phone Number [facility] [address] [place] [address] * ALKALINE PHOSPHATASE (10/14/2024 11:06 AM PDT) ALKALINE PHOSPHATASE 62 <=125 U/L [facility] BLOOD / Unknown 10/14/2024 1 1:06 AM PDT Kelly Peralta) Yvan Quiroz SERUM CHEMISTRY Performing Organization Address City/[facility] Co de Phone Number [facility] [address] [place] [address] * (ABNORMAL) BILIRUBIN, DIRECT (10/14/2024 11:06 AM PDT) BILIRUBIN, DIRECT 0.4(H) <=0.2 mg/dL [facility] BLOOD / Unknown 10/14/2024 1 1:06 AM PDT Kelly Peralta) Yvan Quiroz SERUM CHEMISTRY Performing Organization Address [facility] de Phone Number [facility] [address] [place] [address] * (ABNORMAL) BILIRUBIN, TOTAL (10/14/2024 11:06 AM PDT) BILIRUBIN, TOTAL 1.3(H) <=1.0 mg/dL [facility] BLOOD / Unknown 10/14/2024 1 1:06 AM PDT Kelly Peralta) Yvan Quiroz SERUM CHEMISTRY Performing Organization Address [facility] de Phone Number [facility] [address] [place] [address] * (ABNORMAL) APTT (10/14/2024 11:06 AM PDT) APTT 40(H) 25 - 37 Sec [facility] BLOOD / Unknown 10/14/2024 1 1:06 AM PDT Shante (Pharm.D) To PHARM.D. COAGULATIO N Performing Organization Address [facility] de Phone Number [facility] [address] [place] [address] * EKG 12 OR MORE LEADS W INT & RPT (10/14/2024 10:30 AM PDT) VENTRICULAR RATE 178 BPM SCAL EKG INTERFACE ATRIAL RATE 182 BPM SCAL EKG INTERFACE TN INTERVAL 146 ms SCAL EKG INTERFACE QRS [...] 10/17/2024 3:38 PM PDT Ashok Batres (P.A.) Rico-Mgborogrichardu P. A. CV EKG SCAL EKG INTERFACE [...] Range: Negative LEUKOCYTES: Negative Reference Range: Negative LOT#:[id number] Expiration Date:09/30/25 Date/Time: 10/14/2024 10:11 AM Performed by: KENY STOCK [facility] [address] [facility] [phone] [employer] OPERATOR: [facility] Med Office - Yolanda Prescott D.O. Ashok Batres (P.A.) Rico-Mgborogrichardu P. A. POCT from Last 3 Months Advance Directives * [...] Result Release to patient? Immediate Care Teams Hearing Aid Dispenser Relationship Specialty Start Date End Date Wilmer Ludwig M.D., M.D. [address] [place] [place] [id number] PCP - General Family Practice 01/10/14
[2025-01-06 20:34] VITALS: BP 179/67; PULSE 65; RESP 16; TEMP 37; O2SAT 98; BMI 25.0
--- NOTE | 2025-01-06 20:37 | CRLHL7_ITS ---
For Patients: As a result of the Century Cures Act, medical imaging exams and procedure reports are released immediately into your electronic medical record. You may view this report before your referring provider. If you have questions, please contact your health care provider. INDICATION: Tripped and fell on left side, left rib pain. TECHNIQUE: PA chest and left rib series 3 views. COMPARISON: 11/29/2024. FINDINGS: Cardiovascular and mediastinum: Heart size and vasculature are normal in caliber and appearance. Lungs and pleural spaces: Unchanged blunting of both costophrenic angles. No acute focal consolidation. No pneumothorax. Bones and soft tissues: Acute, slightly displaced left 9th rib fracture. Otherwise, unremarkable for age. IMPRESSION: 1. Acute, slightly displaced left 9th rib fracture. No pneumothorax. 2. Unchanged blunting of both costophrenic angles, could represent small pleural effusions or scarring. Dictated by Jay Connell MD @ 01/06/2025 10:23:30 PM (Electronically Signed)
--- NOTE | 2025-01-06 22:28 | ED.GENADULT ---
HPI - General Adult General Time Seen by Provider: 22:28 Date Seen: 01/06/25 Chief complaint: Rib Pain Stated complaint: hurt ribs Time Seen by Provider: 01/06/25 22:28 Source: patient and RN notes reviewed Mode of arrival: ambulatory Limitations: no limitations History of Present Illness HPI narrative: Saira is a very pleasant 79-year-old female with a history of atrial fibrillation currently on Coumadin, history of chronic UTI on daily Macrobid who comes to the emergency room with complaints of left anterior rib pain after a fall. Patient was noted to be [place] and on MondayJanuary 03 missed a step falling forward and hitting the left ribs. She also notes the onset of hematuria that has since resolved on that date associated with symptoms that she thinks is a UTI. Notes that she takes Macrobid daily so she does not know how she could have a UTI. She has not had fever or chills. He notes that it is difficult to take a deep breath and she has been and consistent pain since MondayJanuary 03. She denies hitting her head or any neck pain. She has not had any vomiting. Related Data Home Medications ?Medication ?Instructions ?Recorded ?Confirmed atorvastatin 10 mg tablet 10 mg PO QDAY 05/12/22 11/29/24 clonidine 0.1 mg/24 hr weekly 1 patch transdermal QWEEK 05/12/22 11/29/24 transdermal patch warfarin 2 mg tablet 2 mg PO QMWF 05/12/22 11/29/24 amiodarone 200 mg tablet 200 mg PO 11/22/24 carvedilol 12.5 mg tablet 12.5 mg PO BID 11/22/24 11/29/24 diltiazem HCl 120 mg 120 mg PO BID 11/22/24 11/29/24 capsule,extended release 24 hr nitrofurantoin 1 cap PO DAILY 11/29/24 11/29/24 monohydrate/macrocrystals 100 mg capsule furosemide 20 mg tablet 20 mg PO DAILY 12/10/24 12/10/24 Allergies Allergy/AdvReac Type Severity Reaction Status Date / Time aspirin (From Percodan) Allergy Intermediate really Verified 11/22/24 11:52 sick and pass out oxycodone (From Percodan) Allergy Intermediate really Verified 11/22/24 11:52 sick and pass out Penicillins Allergy Intermediate vomiting Verified 05/12/22 12:17 Sulfa (Sulfonamide Allergy Intermediate vomiting Verified 05/12/22 12:17 Antibiotics) Review of Systems Status of ROS: Reports: 10 or more systems reviewed and unremarkable except as noted in History and below Const: Denies: fever, chills or fatigue ENMT: Denies: neck pain or nasal congestion Cardio: Reports: swelling of feet/ankles; Denies: chest pain, palpitations or shortness of breath with exertion Resp: Denies: shortness of breath or cough GI: Denies: abdominal pain, nausea, vomiting or diarrhea : Reports: painful urination, urinary frequency, urinary urgency and blood in urine ( Three days ago) Musculo: Denies: neck pain Integ/Breast: Denies: rash ( back of legs) Endo: Denies: fatigue PFSH [facility] Medical History Seasonal allergies ?J30.2 - Other seasonal allergic rhinitis (ICD-10) Social History Smoking Status: Never smoker Do you use any of these nicotine containing products: None Second hand tobacco smoke exposure: No How often do you have a drink containing alcohol: never AUDIT-C Alcohol total score: 0 Non-prescribed substance use: denies use Exam Narrative: Exam Narrative: 2D is alert and oriented. She is guarded in movement. Mentation and speech normal. Heart with is an irregular irregular rhythm but normal rate. Lungs show decreased breath sounds bilaterally but patient is very limited in inspiration. Examination shows tenderness over the left anterior lateral right lower ribs. No pain with palpation over the abdomen. No evidence of ecchymosis. She does have 1+ lower extremity edema. Areas of redness 3-4 on the back of her left leg into on the back of her right leg measuring approximately 5 mm. There is a central bite yennifer to these. Const: Vital Signs, click to edit/add: Vital Signs - 24 hr 01/06/25 20:34 01/06/25 23:16 Temperature 98.6 F Pulse Rate [Pulse Oximeter] 65 72 Respiratory Rate 16 18 Blood Pressure [Ri ght Upper Arm] 179/67 H 174/69 H Pulse Oximetry 98 99 Oxygen Delivery Me thod Room Air Documenting provider has reviewed patient's vital signs: yes Course Course ED Course: Differential diagnosis includes but is not limited to rib fracture, hemothorax, intra-abdominal injury, pyelonephritis. At this time given location of injury will obtain CT of the chest abdomen pelvis. The x-ray done prior to me seeing patient does show a single fracture. Given patient's age and significant pain would recommend CT and patient is in agreement. Will also check CBC, comprehensive, urinalysis given patient's urinary symptoms that have been ongoing over the last 3 days. In spite of daily Macrobid she may have a resistant UTI. Will give 500 mL normal saline in preparation for the CT for renal protection. Reevaluation(s) Reevaluation #1: Patient noted to have UTI symptoms as well as positive UA. Patient is currently on Macrobid. My concern is that she has developed a resistant organism. Recommend Rocephin as she has allergies to both penicillins and sulfa. Will use 1 g IV. Initially discussion included continuing on Omnicef but daughter present notes that her mom has had good luck with Keflex in the past. I do worry that a 1st generation cephalosporin may not be effective but am willing to try that in lieu of Omnicef. If resistant of course they will receive a phone call to have medication changed. Vital Signs Vital signs: Initial Vital Signs Temperature 98.6 F 01/06/25 20:34 Temperature Source Temporal Artery Scan 01/06/25 20:34 Pulse Rate 65 01/06/25 20:34 Pulse Rhythm Regular 01/06/25 20:34 Respiratory Rate 16 01/06/25 20:34 Blood Pressure 179/67 H 01/06/25 20:34 Blood Pressure Mean 104 01/06/25 20:34 Blood Pressure Position Sitting 01/06/25 20:34 Pulse Oximetry 98 01/06/25 20:34 Vital Signs Temperature 98.6 F 01/06/25 20:34 Pulse Rate 65 01/06/25 20:34 Respiratory Rate 16 01/06/25 20:34 Blood Pressure 179/67 H 01/06/25 20:34 Pulse Oximetry 98 01/06/25 20:34 Temperature 98.6 F 01/06/25 20:34 Pulse Rate 72 01/06/25 23:16 Respiratory Rate 18 01/06/25 23:16 Blood Pressure 174/69 H 01/06/25 23:16 Pulse Oximetry 99 01/06/25 23:16 Oxygen Delivery Method Room Air 01/06/25 23:16 Medications Administered Medications: Generic Name Dose Route Start Last Admin Trade Name Arleen PRN Reason Stop Dose Admin Ceftriaxone Sodium 1 gm/ 100 mls @ 200 mls/hr 01/07/25 00:26 01/07/25 00:48 Sodium Chloride IVPB 01/07/25 00:27 200 mls/hr ONCE ONE Administration Discontinued Medications Generic Name Dose Route Start Last Admin Trade Name Arleen PRN Reason Stop Dose Admin Sodium Chloride 500 mls @ 500 mls/hr 01/06/25 22:40 01/06/25 23:59 0.9 % Sodium Chloride 500 Ml IV 01/06/25 23:39 Infused .Q1H HIRAM Infusion Acetaminophen 1,000 mg in 100 mls @ 400 mls/hr 01/06/25 22:43 01/06/25 23:33 Acetaminophen Inj IVPB 01/06/25 22:57 Infused ONCE ONE Infusion Medical Decision Making MDM Narrative Medical decision making narrative: 1. Rib fracture-1 fracture noted on x-ray, CT shows no evidence of fractures. Very small pleural effusions. Patient reassured at this time although her pain is certainly understandable with inter costal trauma. Patient received IV Tylenol in the emergency room and does seem to have helped somewhat. She will be limited to Tylenol at home if she is intolerant of narcotics. She is also unable to take NSAIDs. 2. UTI -1 g IV Rocephin given in the ED. will continue with Keflex 500 mg p.o. b.i.d. x7 days. We did discuss that this is likely a resistant organism given the chronic Macrobid use. Patient and her daughter would like to try Keflex instead of Omnicef. They will receive a phone call of course if the will urine culture does show resistance to Keflex. This is put into our Myagis machine Will have patient discontinue Macrobid at this time. Follow-up with primary MD to be restarted on UTI prophylaxis. 3. Anticoagulation-INR 2.14 4. Hypokalemia-mild at 3.3. Patient notes intermittent use of Lasix for lower extremity edema which has been present since October when patient arrived here in [place]. There are some small areas of redness on the back of her leg. Initially I thought these may be bug bites but may be some blood vessels that are more prominent secondary to this persistent swelling. Have recommended support stockings as well as elevation of the legs. Saira will check with her primary in [place] as she does not have a primary here regarding ongoing use of Lasix as well as amiodarone. Did advise duty that she needs to increased potassium rich foods in her diet. She may need to go on a potassium supplement if she does end up taking Lasix daily. 4. Disposition-home at this time. Return for worsening symptoms and as needed. Note: There are a few areas of spots on the back of Saira's legs. Initially I felt these may be bug bites but they do not think they are. Really not causing any problems they are flat. I am wondering if this is some increased capillary a appearance given the lower extremity edema. Does not appear to be related to anything such as Lyme. Continue to monitor. Medical Records Medical records reviewed: Yes I reviewed the patient's medical records Lab Data Lab results reviewed: Yes I reviewed the patient's lab results Labs: Lab Results 01/06/25 01/06/25 Range/Units 22:51 22:58 WBC 9.27 (4.50-11.00) K/uL RBC 4.34 (4.00-5.20) m/uL Hgb 11.8 L (12.0-16.0) gm/dL Hct 37.0 (33.0-51.0) % MCV 85 (80-100) fL MCH 27 (26-34) pg MCHC 32 (32-36) gm/dL RDW Coeff of Rayna 15.1 (11.5-15.5) % Plt Count 245 (140-440) K/uL Neut % (Auto) 70.0 (42.0-72.0) % Lymph % (Auto) 18.9 L (20-44) % [place] % (Auto) 6.6 (0.0-11.0) % Eos % (Auto) 2.5 (0.0-7.0) % Baso % (Auto) 0.8 (0.0-3.0) % Neut # (Auto) 6.50 (1.7-7.0) K/uL Lymph # (Auto) 1.80 (0.90-2.90) K/uL [place] # (Auto) 0.60 (0.00-0.90) K/UL Eos # (Auto) 0.23 (0.00-0.50) K/uL Baso # (Auto) 0.07 (0.00-0.30) K/uL Abs Immat Gran (auto) 0.11 (0.00-0.30) K/uL Imm/Tot Granulo (auto) 1.2 % INR 2.14 H (0.91-1.10) Sodium 138 (135-149) mmol/L Potassium 3.3 L (3.6-5.1) mmol/L Chloride 100 (96-114) mmol/L Carbon Dioxide 27 (20-32) mmol/L Anion Gap 11 (7-15) mEq/L BUN 20 (7-30) mg/dL Creatinine 1.0 (0.5-1.5) mg/dL Estimated Creat Clear 37.12 Estimated GFR 57 ml/min Glucose 117 H (60-115) mg/dL Calcium 9.4 (8.4-10.6) mg/dL Total Bilirubin 0.8 (0.1-1.5) mg/dL AST 32 (12-35) U/L ALT 27 (4-35) U/L Alkaline Phosphatase 94 (40-150) U/L Total Protein 8.3 (6.0-8.3) g/dL Albumin 4.6 (3.3-5.0) g/dL Urine Color Yellow (Yellow) Urine Appearance Slightly Cloudy A (Clear) Urine pH 6.5 (5.0-8.5) Ur Specific [place] 1.015 (1.000-1.030) Urine Protein Negative (Negative) Urine Glucose (UA) Negative (Negative) Urine Ketones Negative (Negative) Urine Blood Trace-intact A (Negative) Urine Nitrite Negative (Negative) Urine Bilirubin Negative (Negative) Urine Urobilinogen 0.2 (0.2-1.0) Ur Leukocyte Esterase 1+ A (Negative) Urine RBC 0-2 (0-2) Urine WBC 10-25 A (0-5) Ur Squamous Epith Cells Few (None-Few) Urine Bacteria Few A (None) Imaging Data Chest x-ray: Attestation: I have reviewed the pertinent imaging results. My impression: I do note fracture in the left lower ribcage questionable 8 or 9. Also noted some fluid in the costophrenic angle especially on the left. Radiologist's impression: Cardiovascular and mediastinum: Heart size and vasculature are normal in caliber and appearance. Lungs and pleural spaces: Unchanged blunting of both costophrenic angles. No acute focal consolidation. No pneumothorax. Bones and soft tissues: Acute, slightly displaced left 9th rib fracture. Otherwise, unremarkable for age. IMPRESSION: 1. Acute, slightly displaced left 9th rib fracture. No pneumothorax. 2. Unchanged blunting of both costophrenic angles, could represent small pleural effusions or scarring. CT scan - chest: Attestation: I have reviewed the pertinent imaging results. Radiologist's impression: Lungs: Scattered pulmonary nodules measure up to 2-3 millimeters, no dedicated follow-up recommended. Small right greater than left simple pleural effusions. Mild atelectasis. No pneumothorax. No organized consolidation. Mediastinum: No acute abnormality appreciated. Calcified coronary arterial sclerosis. Cardiomegaly. Left chest cardiac pacer. Lymph nodes: No gross lymphadenopathy. Soft tissues: No acute abnormality appreciated. Bones: No acute abnormality appreciated. Degenerative changes of the spine and shoulders. Abdomen and Pelvis: Hepatobiliary: No significant parenchymal abnormality is appreciated. Spleen: Unremarkable. Pancreas: No acute abnormality appreciated. Adrenal glands: No acute abnormality appreciated. Kidneys: No significant parenchymal abnormality appreciated. No visualized calculi. No hydronephrosis. Bowel: No obstruction. Diverticulosis. No focal perienteric or pericolonic stranding is appreciated. The appendix is visualized and appears unremarkable. Vascular: Calcified and noncalcified atherosclerotic plaque. Lymph nodes: No gross lymphadenopathy. Peritoneum: No free air. No free fluid. : No acute abnormality appreciated. Soft tissues: No acute abnormality appreciated. Pelvic prolapse. Bones: No acute fracture. No lytic or blastic lesion. Left hip replacement. Degenerative changes of the spine and pelvis. Impression: No acute traumatic abnormality appreciated. Small bilateral pleural effusions are noted. Discharge Plan Discharge Clinical Impression: Traumatic injury of rib, Acute hypokalemia UTI (urinary tract infection) Qualifiers: Urinary tract infection type: acute cystitis Hematuria presence: without hematuria Qualified Code(s): N30.00 - Acute cystitis without hematuria Patient Disposition: Home, Self-Care Condition: Improved Additional Instructions: Start Keflex tomorrow morning for treatment of UTI. We will call you if this antibiotic is not strong enough to treat your UTI. Tylenol as needed for rib pain. Fortunately the CT did not show any evidence of fractures. However you can still have significant pain from muscular injury and connective tissue between your ribs. Try your best to take deep breaths to prevent for many lung air sac collapse. Increase her intake of potassium rich foods such as bananas or potatoes. Your potassium tonight was 3.3 Recommend discussion of your lower extremity edema with your computer security manager. You may need to take Lasix daily. If you decide to do this your potassium is likely to drop. Return to the emergency room for worsening symptoms and as needed. Prescriptions: No Action warfarin 2 mg tablet 2 mg PO QMWF atorvastatin 10 mg tablet 10 mg PO QDAY clonidine 0.1 mg/24 hr patch weekly 1 patch transdermal QWEEK nitrofurantoin monohyd/m-cryst 100 mg capsule 1 cap PO DAILY carvedilol 12.5 mg tablet 12.5 mg PO BID amiodarone 200 mg tablet 200 mg PO diltiazem HCl 120 mg capsule,extended release 24hr 120 mg PO BID furosemide 20 mg tablet 20 mg PO DAILY Follow Up/Referrals: Bossman Garcia MD [Primary Care Provider, Internal Medicine] Stand Alone Forms: [employer] Info Instructions
--- NOTE | 2025-01-06 22:45 | CRLHL7_ITS ---
For Patients: As a result of the Century Cures Act, medical imaging exams and procedure reports are released immediately into your electronic medical record. You may view this report before your referring provider. If you have questions, please contact your health care provider. Indication: Follow-up to left anterior ribs Technique: Postcontrast CT of the chest, abdomen, and pelvis with multiplanar reformats following 69 mL Isovue 370 IV. Comparison: None Findings: Chest: Lungs: Scattered pulmonary nodules measure up to 2-3 millimeters, no dedicated follow-up recommended. Small right greater than left simple pleural effusions. Mild atelectasis. No pneumothorax. No organized consolidation. Mediastinum: No acute abnormality appreciated. Calcified coronary arterial sclerosis. Cardiomegaly. Left chest cardiac pacer. Lymph nodes: No gross lymphadenopathy. Soft tissues: No acute abnormality appreciated. Bones: No acute abnormality appreciated. Degenerative changes of the spine and shoulders. Abdomen and Pelvis: Hepatobiliary: No significant parenchymal abnormality is appreciated. Spleen: Unremarkable. Pancreas: No acute abnormality appreciated. Adrenal glands: No acute abnormality appreciated. Kidneys: No significant parenchymal abnormality appreciated. No visualized calculi. No hydronephrosis. Bowel: No obstruction. Diverticulosis. No focal perienteric or pericolonic stranding is appreciated. The appendix is visualized and appears unremarkable. Vascular: Calcified and noncalcified atherosclerotic plaque. Lymph nodes: No gross lymphadenopathy. Peritoneum: No free air. No free fluid. : No acute abnormality appreciated. Soft tissues: No acute abnormality appreciated. Pelvic prolapse. Bones: No acute fracture. No lytic or blastic lesion. Left hip replacement. Degenerative changes of the spine and pelvis. Impression: No acute traumatic abnormality appreciated. Small bilateral pleural effusions are noted. Please note that all CT scans at this facility use dose modulation, iterative reconstruction, and/or weight-based dosing when appropriate to reduce radiation dose to as low as reasonably achievable. Dictated by Luke Douglas MD @ 01/07/2025 1:06:36 AM (Electronically Signed)
[2025-01-06] MEDS: 0.9 % SODIUM CHLORIDE 500 ML 500 ML IV (22:59)
[2025-01-06 23:09] LABS: Hematocrit 37.0 % (33.0-51.0); Hemoglobin* 11.8 gm/dL (12.0-16.0); Immature Granulocytes Abs Auto 0.11 K/uL (0.00-0.30); Immature Granulocytes Pct Auto 1.2 %; Mean Corpuscular HGB Conc 32 gm/dL (32-36); Mean Corpuscular Hemoglobin 27 pg (26-34); Mean Corpuscular Volume 85 fL (80-100); RDW Coefficient of Variation % 15.1 % (11.5-15.5); Red Blood Count 4.34 m/uL (4.00-5.20); White Blood Count* 9.27 K/uL (4.50-11.00)
[2025-01-06] MEDS: ACETAMINOPHEN INJ 1,000 MG/100 ML VIAL 400 MG IVPB (23:10)
[2025-01-06 23:14] LABS: Appearance Urine Slightly Cloudy (Clear)
[2025-01-06 23:15] LABS: Lymphocytes Absolute Auto 1.80 K/uL (0.90-2.90); Slide Review Reflex No
[2025-01-06 23:16] VITALS: BP 174/69; PULSE 72; RESP 18; O2SAT 99
[2025-01-06 23:22] LABS: Albumin* 4.6 g/dL (3.3-5.0); Chloride* 100 mmol/L (96-114); Sodium* 138 mmol/L (135-149)
[2025-01-06 23:23] LABS: Potassium* 3.3 mmol/L (3.6-5.1)
[2025-01-06 23:25] LABS: Alanine Aminotransferase* 27 U/L (4-35); Alkaline Phosphatase* 94 U/L (40-150); Anion Gap 11 mEq/L (7-15); Aspartate Amino Transferase* 32 U/L (12-35); Bilirubin Total* 0.8 mg/dL (0.1-1.5); Blood Urea Nitrogen* 20 mg/dL (7-30); Calcium* 9.4 mg/dL (8.4-10.6); Carbon Dioxide* 27 mmol/L (20-32); Creatinine* 1.0 mg/dL (0.5-1.5); Est. Creatinine Clearance* 37.12; Estimated Glomerular Filt Rate 57 ml/min; Glucose* 117 mg/dL (60-115); Total Protein* 8.3 g/dL (6.0-8.3)
[2025-01-06 23:39] LABS: INR 2.14 (0.91-1.10); Prothrombin Time 25.1 Seconds
[2025-01-07] MEDS: cefTRIAXone 1 GM in 0.9 % SODIUM CHLORIDE Mini-bag 100 ML IVPB (00:48)
== END 2025-01-07 01:35 | disposition home or self-care (01) ==
PROVIDERS: Emergency Provider Family Medicine; PCP Internal Medicine
DX: S22.32XA Fracture of one rib, left side, initial encounter for closed fracture (principal); E87.6 Hypokalemia; N39.0 Urinary tract infection, site not specified
CPT/HCPCS: 36415; 71101; 71260; 74177; 80053; 81001; 85025; 85610; 87086; 96374; 96375; 99284; J0131; J0696; J7030; Q9967

== ENCOUNTER 2025-01-28 12:26 | Emergency (ER) | payer OTHER, SELFPAY ==
--- OUTSIDE RECORDS SUMMARY | 2025-01-28 12:29 | XMS_ITS | Encounter Summary ---
Author Organization [facility] Address [address] [place] [place] [address] Care Team Providers Care Supply Chain Development Manager Name Role Phone Wilmer Ludwig) Richie Primary Care Prov ider Unavailable Encounter Details Date Type Department Care Team (Late st Contact Info) Description 05/08/2021 Home Care Visit DEFAULT [facility] [address] [phone] Social History Tobacco Use Types [...] 8:45 AM PDT Orthopedic Office Visit ORTHOPEDICS [address] [place] [phone] David Palacios), Richie [address] [phone] 04/04/2025 10:00 AM PDT Ancillary Procedure CARDIOLOGY [address] [place] [phone] documented as of this encounter Visit [...] Endurance Description: Physical Therapist and Phyiscal Therapist Data Warehousing Engineer to perform ansd instruct a strengthening program. [...] Yes documented in this encounter Care Teams Supply Chain Development Manager Relationship Specialty Start Date End Date Wilmer Ludwig), Ricihe [address] [place] [address] PCP - General Family Practice 01/10/14 documented as of this encounter
--- OUTSIDE RECORDS SUMMARY | 2025-01-28 12:29 | XMS_ITS | Encounter Summary ---
Author Organization [facility] Address [address] [place] [address] Care Team Providers Care Environmental Emergencies Assistant Name Role Phone Wilmer Ludwig) Richie Primary Care Prov ider Unavailable Encounter Details Date Type Department Care Team (Late st Contact Info) Description 10/12/2022 Refill FAMILY PRACTICE [address] [place] [address] Wilmer Ludwig), MLamarD. [address] [place] [address] Medications Social History Tobacco Use [...] 8:45 AM PDT Orthopedic Office Visit ORTHOPEDICS [address] [place] [phone] David Palacios), [place]agdalene [address] [place] [phone] 04/04/2025 10:00 AM PDT Ancillary Procedure CARDIOLOGY [address] [id number] documented as of this encounter Visit Diagnoses Diagnosis ATRIAL FIBRILLATION, UNSPECIFIED ATRIAL FIBRILLATION documented in this encounter Care Teams Environmental Emergencies Assistant Relationship Specialty Start Date End Date Wilmer Ludwig), Dilma. [address] [place] [phone] PCP - General [facility] 01/10/14 documented as of this encounter
--- OUTSIDE RECORDS SUMMARY | 2025-01-28 12:29 | XMS_ITS | Encounter Summary ---
Author Organization [facility] Address [address] [place] [place] [address] Care Team Providers Care Vice President For Instruction Name Role Phone Wilmer Ludwig) Richie Primary Care Prov ider Unavailable Encounter Details Date Type Department Care Team (Late st Contact Info) Description 05/11/2021 Home Care Visit DEFAULT [facility] [address] [phone] Social History Tobacco Use [...] 8:45 AM PDT Orthopedic Office Visit ORTHOPEDICS [address] [place] [phone] David Palacios), [place]. [address] [place] [phone] 04/04/2025 10:00 AM PDT Ancillary Procedure [...] Yes documented in this encounter Care Teams Vice President For Instruction Relationship Specialty Start Date End Date Wilmer Ludwig), MLamarD. [address] [phone] PCP - General Family Practice 01/10/14 documented as of this encounter
--- OUTSIDE RECORDS SUMMARY | 2025-01-28 12:29 | XMS_ITS | Encounter Summary ---
Author Organization [facility] Address [address] [place] [address] Care Team Providers Care Bindery Chief Name Role Phone Wilmer Ludwig) Richie Primary Care Prov ider Unavailable Encounter Details Date Type Department Care Team (Late st Contact Info) Description 01/10/2023 Refill FAMILY PRACTICE [address] [place] [address] Wilmer Ludwig), MLamarD. [address] [place] [address] Medications Social History Tobacco Use [...] 8:45 AM PDT Orthopedic Office Visit ORTHOPEDICS [address] [place] [phone] David Palacios), M.[place]am[place]. [address] [place] [phone] 04/04/2025 10:00 AM PDT Ancillary Procedure CARDIOLOGY [address] [id number] documented as of this encounter Visit Diagnoses Diagnosis HYPERLIPIDEMIA documented in this encounter Care Teams Bindery Chief Relationship Specialty Start Date End Date Wilmer Ludwig), Dilma. [address] [place] [phone] PCP - General Family Practice 01/10/14 documented as of this encounter
--- OUTSIDE RECORDS SUMMARY | 2025-01-28 12:29 | XMS_ITS | Encounter Summary ---
Author Organization [facility] Address [address] [place] [address] Care Team Providers Care Hoe Worker Name Role Phone Wilmer Ludwig M.D., M.D. Primary Care Prov ider Unavailable Encounter Details Date Type Department Care Team (Late st Contact Info) Description 04/28/2021 Home Care Visit [address] [phone] Social History Tobacco Use [...] 8:45 AM PDT Orthopedic Office Visit ORTHOPEDICS [address] [place] [phone] David Palacios), [place]. [address] [place] [phone] 04/04/2025 10:00 AM PDT Ancillary Procedure CARDIOLOGY [address] [phone] documented as of this encounter Visit Diagnoses Not on filedocumented in this encounter Care Teams Hoe Worker Relationship Specialty Start Date End Date Wilmer Ludwig M.D., M.D. [address] [place] [place] [phone] PCP - General Family Practice 01/10/14 documented as of this encounter
--- OUTSIDE RECORDS SUMMARY | 2025-01-28 12:29 | XMS_ITS | Encounter Summary ---
Author Organization [facility] Address [address] [place] [address] Care Team Providers Care Molding And Trim Installer Name Role Phone Wilmer Ludwig M.D., M.D. Primary Care Prov ider Unavailable Encounter Details Date Type Department Care Team (Late st Contact Info) Description 05/04/2021 Home Care Visit [address] [phone] Social History Tobacco Use Types [...] 8:45 AM PDT Orthopedic Office Visit ORTHOPEDICS [address] [place] [phone] David Palacios), [place]. [address] [place] [phone] 04/04/2025 10:00 AM PDT Ancillary Procedure CARDIOLOGY [address] [phone] documented as of this encounter Visit Diagnoses Not on filedocumented in this encounter Care Teams Molding And Trim Installer Relationship Specialty Start Date End Date Wilmer Ludwig M.D., M.D. [address] [place] [phone] PCP - General Family Practice 01/10/14 documented as of this encounter
--- OUTSIDE RECORDS SUMMARY | 2025-01-28 12:29 | XMS_ITS | Clinical Summary ---
Author Organization [facility] Address [address] [place] [address] Care Team Providers Care Benefit Authorizer Name Role Phone Pcp, No Primary Care Provider Unavailabl e Allergies Active Allergy Reactions Criticality Noted Date Comments Cefuroxime Rash 06/08/2017 Codeine Hives 10/11/2012 Meperidine Hives 10/11/2012 Penicillins Hives 10/11/2012 Oxycodone-Acetaminophen Hives 10/11/2012 Oxycodone Dyc-Bjnzslcxy-Hwh Hives 10/12/19 13 Sulfa (Sulfonamide Antibiotics) Hives [...] 0 11/14/2012 Active cloNIDine 0.1 mg/24 hr ([id number]-4 ) 0.1 mg/24 hr patch 11/13/2018 Active [...] Overview (12/06/2017): Overview: Renal ultrasound 11/02/12 from [place]: 1. [...] Metoprolol changed to carvedilol 10/2012 while in [place] for uncontrolled Hypertension Start hydrochlorothiazide 12.5 mg [...] age to complete this topic Care Teams Benefit Authorizer Relationship Specialty Start Date End Date Pcp, No . PCP - General 01/11/18
--- OUTSIDE RECORDS SUMMARY | 2025-01-28 12:29 | XMS_ITS | Encounter Summary ---
Author Organization [facility] Address [address] [place] [address] Care Team Providers Care House Father Name Role Phone Wilmer Ludwig) Richie Primary Care Prov ider Unavailable Encounter Details Date Type Department Care Team ([facility] Contact Info) Description 04/29/2021 Home Care Visit DEFAULT [facility] [address] [address] Social History Tobacco Use Types [...] 8:45 AM PDT Orthopedic Office Visit ORTHOPEDICS [address] [place] [address] [phone] David Palacios), [place] [address] [place] [phone] 04/04/2025 10:00 AM PDT Ancillary Procedure CARDIOLOGY [address] [id number] documented as of this encounter Visit Diagnoses Not on filedocumented in this encounter Care Teams House Father Relationship Specialty Start Date End Date Wilmer Ludwig), MTano. [address] [place] [address] PCP - General Family Practice 01/10/14 documented as of this encounter
--- OUTSIDE RECORDS SUMMARY | 2025-01-28 12:29 | XMS_ITS | Clinical Summary ---
Author Organization [facility] Address [address] [facility] [place] [address] Care Team Providers Care Photo Tech Name Role Phone Unavailable Primary Care Provider Unavailabl e Allergies Active Allergy Reactions Criticality Noted Date Comments Cefuroxime Rash Low 06/08/2017 Noted with antibiotics given in [place]. Hydrochlorothiazide 12/19/2013 Hyponatremia in setting of HCTZ Meperidine Hives High 08/29/2011 Nsaids (Non-Steroidal Anti-Inflammatory Drug) High 02/24/2017 [id number] Heart Failure. Exception to this NSAID intolerance is aspirin 81-325mg daily and topical or ophthalmic nsaids' Opioids - Morphine Analogues Hives 012 Oxycodone Ezw-Ydnnsuyzq-Ztb Hives 10/12/19 13 Oxycodone-Acetaminophen Hives 07/22/2011 Penicillins Hives 07/22/2011 Sulfa (Sulfonamide Antibiotics) Hives,Rash Low 08/18/2011 Medications atorvastatin (LIPITOR) 10 mg tablet Take 10 mg by mouth. 01/11/20 23 Active benzonatate (TESSALON) 100 mg capsule 06/03/20 [...] Overview (08/08/2023): Overview: Renal ultrasound 11/02/12 from [place]: 1. Unable to see the origin of the left renal artery due to calcification. There are elevated velocities in the left renal artery suggestion a hemodynamically significant stenosis. If clinically indicated, an angiogram with intent to treat could be considered. 2. Normal ultrasound appearance of the kidneys, bilaterally. Cardiac MRI performed on 11/02/12 in [place]: indication: severe Hypertension with suspected severe concentric [...] renal artery stenosis. Renal ultrasound 11/02/12 from [place]: 1. Unable to see the origin of the left renal artery due to calcification. There are elevated velocities in the left renal artery suggestion a hemodynamically significant stenosis. If clinically indicated, an angiogram with intent to treat could be considered. 2. Normal ultrasound appearance of the kidneys, bilaterally. Cardiac MRI performed on 11/02/12 in [place]: indication: severe Hypertension with suspected severe concentric [...] Metoprolol changed to carvedilol 10/2012 while in [place] for uncontrolled Hypertension Start hydrochlorothiazide 12.5 mg [...] 08/08/2023 Dental X-Ray: Full Mouth 08/10/2026 08/09/2023, 12/2023, 03/08/2013 Procedures Procedure Name Priority Date/Time Associated [...] Most Recently Relevant to Health [facility]
--- OUTSIDE RECORDS SUMMARY | 2025-01-28 12:29 | XMS_ITS | Encounter Summary ---
Author Organization [facility] Address [address] [place] [address] Care Team Providers Care Sql Engineer Name Role Phone Wilmer Ludwig) Richie Primary Care Prov ider Unavailable Encounter Details Date Type Department Care Team (Late st Contact Info) Description 12/06/2021 Refill FAMILY PRACTICE [address] [place] [address] Wilmer Ludwig), MLamarD. [address] [place] [address] Medications Social History Tobacco Use [...] 8:45 AM PDT Orthopedic Office Visit ORTHOPEDICS [address] [place] [phone] David Palacios), [place]. [address] [place] [phone] 04/04/2025 10:00 AM PDT Ancillary Procedure CARDIOLOGY [address] [id number] documented as of this encounter Visit Diagnoses Diagnosis HYPERLIPIDEMIA documented in this encounter Care Teams Sql Engineer Relationship Specialty Start Date End Date Wilmer Ludwig), MTano. [address] [phone] PCP - General Family Practice 01/10/14 documented as of this encounter
--- OUTSIDE RECORDS SUMMARY | 2025-01-28 12:29 | XMS_ITS | Encounter Summary ---
Author Organization [facility] Address [address] [facility] [place] [address] Care Team Providers Care Wood Flour Miller Name Role Phone Wilmer Ludwig M.D., M.D. Primary Care Prov ider Unavailable Encounter Details Date Type Department Care Team (Late st Contact Info) Description 05/03/2024 Orders Only SCAL IE E-VISITS ADMIN DEPT [address] [place] [address] Scal E-Visit, Provider (Richie)Richie [address] [place] [address] VACCINATION FOR SARS-COV-2 Social History Tobacco Use [...] 8:45 AM PDT Orthopedic Office Visit ORTHOPEDICS [address] [place] [address] David Palacios), [place]. [address] [place] [phone] 04/04/2025 10:00 AM PDT Ancillary Procedure CARDIOLOGY [address] [id number] documented as of this encounter Visit Diagnoses Diagnosis VACCINATION FOR SARS-COV-2 documented in this encounter Care Teams Wood Flour Miller Relationship Specialty Start Date End Date Wilmer Ludwig), MTano. [address] [phone] PCP - General Family Practice 01/10/14 documented as of this encounter
--- OUTSIDE RECORDS SUMMARY | 2025-01-28 12:29 | XMS_ITS | Encounter Summary ---
Author Organization [facility] Address [address] [place] [place] [address] Care Team Providers Care Environmental Engineer Scientist Name Role Phone Wilmer Ludwig) Dilma. Primary Care Prov ider Unavailable Encounter Details Date Type Department Care Team (Late st Contact Info) Description 03/23/2021 Refill FAMILY PRACTICE [address] [place] [address] Wilmer Ludwig), MLamarD. [address] [place] [address] Medications Social History Tobacco Use [...] 8:45 AM PDT Orthopedic Office Visit ORTHOPEDICS [address] [place] [phone] David Palacios), [place]. [address] [place] [phone] 04/04/2025 10:00 AM PDT Ancillary Procedure CARDIOLOGY [address] [id number] documented as of this encounter Visit Diagnoses Diagnosis HTN (HYPERTENSION) HTN documented in this encounter Care Teams Environmental Engineer Scientist Relationship Specialty Start Date End Date Wilmer Ludwig), MTano. [address] [phone] PCP - General Family Practice 01/10/14 documented as of this encounter
--- OUTSIDE RECORDS SUMMARY | 2025-01-28 12:29 | XMS_ITS | Encounter Summary ---
Author Organization [facility] Address [address] [place] [address] Care Team Providers Care Continuous Wave Operator Name Role Phone Wilmer Ludwig) Richie Primary Care Prov ider Unavailable Encounter Details Date Type Department Care Team ([facility] Contact Info) Description 05/04/2021 Home Care Visit DEFAULT [facility] [address] [address] Social History Tobacco Use Types [...] 8:45 AM PDT Orthopedic Office Visit ORTHOPEDICS [address] [place] [phone] David Palacios), [place] [address] [place] [phone] 04/04/2025 10:00 AM PDT Ancillary Procedure CARDIOLOGY [address] [id number] documented as of this encounter Visit Diagnoses Not on filedocumented in this encounter Care Teams Continuous Wave Operator Relationship Specialty Start Date End Date Wilmer Ludwig), MTano. [address] [phone] PCP - General Family Practice 01/10/14 documented as of this encounter
--- OUTSIDE RECORDS SUMMARY | 2025-01-28 12:29 | XMS_ITS | Encounter Summary ---
Author Organization [facility] Address [address] [place] [address] Care Team Providers Care Admissions Manager Rn Name Role Phone Wilmer Ludwig) Richie Primary Care Prov ider Unavailable Encounter Details Date Type Department Care Team (Late st Contact Info) Description 12/30/2022 Refill FAMILY PRACTICE [address] [place] [address] Wilmer Ludwig), MLamarD. [address] [place] [address] Medications Social History Tobacco Use [...] 8:45 AM PDT Orthopedic Office Visit ORTHOPEDICS [address] [place] [phone] David Palacios), [place]. [address] [place] [phone] 04/04/2025 10:00 AM PDT Ancillary Procedure CARDIOLOGY [address] [id number] documented as of this encounter Visit Diagnoses Diagnosis HTN documented in this encounter Care Teams Admissions Manager Rn Relationship Specialty Start Date End Date Wilmer Ludwig), Dilma. [address] [phone] PCP - General Family Practice 01/10/14 documented as of this encounter
--- OUTSIDE RECORDS SUMMARY | 2025-01-28 12:29 | XMS_ITS | Encounter Summary ---
Author Organization [facility] Address [address] [place] [address] Care Team Providers Care Vp Home Health Name Role Phone Wilmer Ludwig) Richie Primary Care Prov ider Unavailable Encounter Details Date Type Department Care Team (Late st Contact Info) Description 12/30/2024 Anticoagulation DEFAULT [facility] [address] [place] [address] Yisel Hutchinson (Pharm.D), PHARM.D. [address] [place] [phone] Social History Tobacco Use Types Packs/Day Years [...] Notes * Yisel Hutchinson (Pharm.D), PHARM.D. - 01/20/2025 10:09 AM PDT No outside INR result received. Route to social service assistant to verify if patient went to outside lab for INR. Please request result to be faxed if INR was done, or remind patient to RTL if INR was not done. Electronically signed by: Yisel Hutchinson Pharm.D. Delivery Driver Pharmacist 01/20/2025 10:09 AM * Yisel HutchinsonPharm.Familia) PHARM.DLamar - 01/07/2025 11:55 AM PDT Spoke with patient. Went to ER yesterday for UTI. Started on Keflex today. INR 2.14. Advised on possible DDI. Patient to RTL 01/13. Also discussed DOACs and warfarin with patient. Patient will consider switching to Pradaxa once she is back home in March. Electronically signed by: Yisel Hutchinson Pharm.D. Delivery Driver Pharmacist 01/07/2025 12:09 PM * Yisel Hutchinson.Familia), PHARM.DLamar - 12/30/2024 2:13 PM PDT Primary care [...] of clotting/stroke. Electronically signed by: YISEL HUTCHINSON PHARMFamilia 12/30/2024 2:18 PM documented in this encounter Nursing Notes * Sourav Amato - 01/20/2025 11:57 AM PDT [phone] Called patient to verify if patient went to lab since last INR on 12/28 she advised yes to the ER like last time called to get results faxed patient did not know date she went to the ER tho. Lopez with records from 01/06/25 will fax results to us. Electronically signed by SOURAV AMATO Head Usher 01/20/2025 12:06 PM * Sourav Amato - 01/07/2025 11:53 AM PDT Patient called back to go over new med with pharm D Call transferred to Pharm D. Electronically signed by SOURAV AMATO Head Usher 01/07/2025 11:56 AM * Sourav Amato - 01/07/2025 10:10 AM PDT Patient called left voicemail stating she was given a new rx and didn't want to leave it in the voicemail requested to tell you over the phone with you call her back Forwarded to Pharm.D to address. Electronically signed by SOURAV AMATO Head Usher 01/07/2025 10:10 AM documented in this encounter Plan of Treatment Upcoming Encounters Date Type Department Care Team (Late st Contact Info) Description 03/27/2025 8:45 AM PDT Orthopedic Office Visit ORTHOPEDICS [address] [place] [phone] David Palacios), [place] [address] [place] [phone] 04/04/2025 10:00 AM PDT Ancillary Procedure CARDIOLOGY [address] [id number] documented as of this encounter Visit Diagnoses Not on filedocumented in this encounter Care Teams Vp Home Health Relationship Specialty Start Date End Date Wilmer Ludwig), MTano. [address] [phone] PCP - General Family Practice 01/10/14 documented as of this encounter
--- OUTSIDE RECORDS SUMMARY | 2025-01-28 12:29 | XMS_ITS | Encounter Summary ---
Author Organization [facility] Address [address] [place] [address] Care Team Providers Care Crm Marketing Manager Name Role Phone Wilmer Ludwig M.D., M.D. Primary Care Prov ider Unavailable Encounter Details Date Type Department Care Team (Late st Contact Info) Description 04/21/2021 Orders Only FAMILY MEDICINE CV19 VACCINE [address] [address] Scal E-Visit, Provider Fabian)Richie [address] [place] [address] VACCINATION FOR SARS-COV-2 Social History Tobacco Use [...] 8:45 AM PDT Orthopedic Office Visit ORTHOPEDICS [address] [place] [address] David Palacios), M.D. [address] [phone] 04/04/2025 10:00 AM PDT Ancillary Procedure CARDIOLOGY [address] [id number] documented as of this encounter Visit Diagnoses Diagnosis VACCINATION FOR SARS-COV-2 documented in this encounter Care Teams Crm Marketing Manager Relationship Specialty Start Date End Date Wilmer Ludwig), Richie [address] [phone] PCP - General Family Practice 01/10/14 documented as of this encounter
--- OUTSIDE RECORDS SUMMARY | 2025-01-28 12:29 | XMS_ITS | Encounter Summary ---
Author Organization [facility] Address [address] [place] [address] Care Team Providers Care Primary Care Sales Representative Name Role Phone Wilmer Ludwig) Richie Primary Care Prov ider Unavailable Encounter Details Date Type Department Care Team (Late st Contact Info) Description 10/04/2023 Refill FAMILY PRACTICE [address] [place] [address] Wilmer Ludwig), MLamarD. [address] [place] [address] Medications Social History Tobacco Use [...] 8:45 AM PDT Orthopedic Office Visit ORTHOPEDICS [address] [place] [phone] David Palacios), [place]. [address] [place] [phone] 04/04/2025 10:00 AM PDT Ancillary Procedure CARDIOLOGY [address] [id number] documented as of this encounter Visit Diagnoses Diagnosis HTN documented in this encounter Care Teams Primary Care Sales Representative Relationship Specialty Start Date End Date Wilmer Ludwig), Dilma. [address] [phone] PCP - General Family Practice 01/10/14 documented as of this encounter
--- OUTSIDE RECORDS SUMMARY | 2025-01-28 12:29 | XMS_ITS | Encounter Summary ---
Author Organization [facility] Address [address] [place] [address] Care Team Providers Care Nurse Executive Name Role Phone Wilmer Ludwig M.D., M.D. Primary Care Prov ider Unavailable Encounter Details Date Type Department Care Team (Late st Contact Info) Description 04/29/2021 Home Care Visit [address] [address] Social History Tobacco Use Types [...] 8:45 AM PDT Orthopedic Office Visit ORTHOPEDICS [address] [place] [phone] David Palacios), [place]. [address] [place] [phone] 04/04/2025 10:00 AM PDT Ancillary Procedure CARDIOLOGY [address] [id number] documented as of this encounter Visit Diagnoses Not on filedocumented in this encounter Care Teams Nurse Executive Relationship Specialty Start Date End Date Wilmer Ludwig M.D., M.D. [address] [phone] PCP - General Family Practice 01/10/14 documented as of this encounter
--- OUTSIDE RECORDS SUMMARY | 2025-01-28 12:29 | XMS_ITS | Encounter Summary ---
Author Organization [facility] Address [address] [place] [address] Care Team Providers Care Pier Hand Helper Name Role Phone Wilmer Ludwig M.D., M.D. Primary Care Prov ider Unavailable Encounter Details Date Type Department Care Team (Late st Contact Info) Description 05/11/2021 Home Care Visit [address] [address] Social History Tobacco Use Types [...] 8:45 AM PDT Orthopedic Office Visit ORTHOPEDICS [address] [place] [phone] David Palacios), [place]ano. [address] [place] [phone] 04/04/2025 10:00 AM PDT Ancillary Procedure CARDIOLOGY [address] [id number] documented as of this encounter Visit Diagnoses Not on filedocumented in this encounter Care Teams Pier Hand Helper Relationship Specialty Start Date End Date Wilmer Ludwig M.D., M.D. [address] [phone] PCP - General Family Practice 01/10/14 documented as of this encounter
--- OUTSIDE RECORDS SUMMARY | 2025-01-28 12:29 | XMS_ITS | Encounter Summary ---
Author Organization [facility] Address [address] [place] [place] [address] Care Team Providers Care Wedding Florist Name Role Phone Wilmer Ludwig) Richie Primary Care Prov ider Unavailable Encounter Details Date Type Department Care Team (Late st Contact Info) Description 04/28/2021 Home Care Visit DEFAULT [facility] [address] [address] Social History Tobacco Use Types [...] 8:45 AM PDT Orthopedic Office Visit ORTHOPEDICS [address] [place] [phone] David Palacios), [place]dal[place] [address] [place] [phone] 04/04/2025 10:00 AM PDT Ancillary Procedure CARDIOLOGY [address] [id number] documented as of this encounter Visit Diagnoses Not on filedocumented in this encounter Care Teams Wedding Florist Relationship Specialty Start Date End Date Wilmer Ludwig), MLamarD. [address] [phone] PCP - General Family Practice 01/10/14 documented as of this encounter
--- OUTSIDE RECORDS SUMMARY | 2025-01-28 12:29 | XMS_ITS | Encounter Summary ---
Author Organization [facility] Address [address] [facility] [place] [address] Care Team Providers Care Free Lance Artist Name Role Phone Wilmer Ludwig) Richie Primary Care Prov ider Unavailable Encounter Details Date Type Department Care Team (Late st Contact Info) Description 05/12/2022 Orders Only SCAL IE E-VISITS ADMIN DEPT [address] [place] [address] Scal E-Visit, Provider (Richie)Richie [address] [place] [address] VACCINATION FOR SARS-COV-2 Social History Tobacco Use [...] 8:45 AM PDT Orthopedic Office Visit ORTHOPEDICS [address] [place] [address] David Palacios), M.D. [address] [phone] 04/04/2025 10:00 AM PDT Ancillary Procedure CARDIOLOGY [address] [id number] documented as of this encounter Visit Diagnoses Diagnosis VACCINATION FOR SARS-COV-2 documented in this encounter Care Teams Free Lance Artist Relationship Specialty Start Date End Date Wilmer Ludwig), MTano. [address] [phone] PCP - General Family Practice 01/10/14 documented as of this encounter
--- OUTSIDE RECORDS SUMMARY | 2025-01-28 12:29 | XMS_ITS | Encounter Summary ---
Author Organization [facility] Address [address] [place] [address] Care Team Providers Care Yard Coordinator Name Role Phone Wilmer Ludwig) Richie Primary Care Prov ider Unavailable Encounter Details Date Type Department Care Team (Late st Contact Info) Description 05/01/2021 Home Care Visit DEFAULT [facility] [address] [address] Social History Tobacco Use Types [...] 8:45 AM PDT Orthopedic Office Visit ORTHOPEDICS [address] [place] [phone] David Palacios), [place] [address] [place] [phone] 04/04/2025 10:00 AM PDT Ancillary Procedure CARDIOLOGY [address] [id number] documented as of this encounter Visit Diagnoses Not on filedocumented in this encounter Care Teams Yard Coordinator Relationship Specialty Start Date End Date Wilmer Ludwig), MLamarD. [address] [phone] PCP - General Family Practice 01/10/14 documented as of this encounter
--- OUTSIDE RECORDS SUMMARY | 2025-01-28 12:29 | XMS_ITS | Encounter Summary ---
Author Organization [facility] Address [address] [place] [address] Care Team Providers Care Trust Administrative Assistant Name Role Phone Wilmer Ludwig M.D., M.D. Primary Care Prov ider Unavailable Encounter Details Date Type Department Care Team (Late st Contact Info) Description 05/01/2021 Home Care Visit [address] [address] Social History Tobacco Use [...] 8:45 AM PDT Orthopedic Office Visit ORTHOPEDICS [address] [place] [phone] David Palacios), [place]. [address] [place] [phone] 04/04/2025 10:00 AM PDT Ancillary Procedure CARDIOLOGY [address] [id number] documented as of this encounter Visit Diagnoses Not on filedocumented in this encounter Care Teams Trust Administrative Assistant Relationship Specialty Start Date End Date Wilmer Ludwig M.D., M.D. [address] [phone] PCP - General Family Practice 01/10/14 documented as of this encounter
--- OUTSIDE RECORDS SUMMARY | 2025-01-28 12:29 | XMS_ITS | Encounter Summary ---
Author Organization [facility] Address [address] [place] [address] Care Team Providers Care Certified Tower Climber Name Role Phone Wilmer Ludwig M.D., M.D. Primary Care Prov ider Unavailable Encounter Details Date Type Department Care Team (Late st Contact Info) Description 05/08/2021 Home Care Visit [address] [address] Social History Tobacco Use [...] 8:45 AM PDT Orthopedic Office Visit ORTHOPEDICS [address] [place] [phone] David Palacios), [place]. [address] [place] [phone] 04/04/2025 10:00 AM PDT Ancillary Procedure CARDIOLOGY [address] [id number] documented as of this encounter Visit Diagnoses Not on filedocumented in this encounter Care Teams Certified Tower Climber Relationship Specialty Start Date End Date Wilmer Ludwig M.D., M.D. [address] [phone] PCP - General Family Practice 01/10/14 documented as of this encounter
--- OUTSIDE RECORDS SUMMARY | 2025-01-28 12:30 | XMS_ITS | Encounter Summary ---
Author Organization [facility] Address [address] [place] [address] Care Team Providers Care Laser/Electro Optics Technician Name Role Phone Wilmer Ludwig) Richie Primary Care Prov ider Unavailable Encounter Details Date Type Department Care Team (Late st Contact Info) Description 12/13/2024 Anticoagulation [facility] [address] [place] [address] Noah Dill (Pharm.D), PHARM.D. [address] [place] [phone] Social History Tobacco Use Types Packs/Day Years [...] No outside INR result received. Route to buyer assistant to verify if patient went to outside lab for INR. Please request result to be faxed if INR was done, or remind patient to RTL if INR was not done. Electronically signed by: Juventino Hutchinson Pharm.D. Transfer Knitter Pharmacist 12/27/2024 2:42 PM * Noah Dill [...] had inr done over the weekend at [facility] and if we received the faxed over results yet or not I advised her we have not received any faxes from over the weekend [phone] to request INR results . Called spoke with Aspen who stated INR was 1.89 on 12/28 advised to fax over results to us Waiting on fax Electronically signed by SOURAV AMATO Sweet Dough Mixer 12/30/2024 11:46 AM * Sourav Amato - 12/27/2024 4:07 PM PDT Lab reminder call x1, Patient states she was told 12/29 for iNR she will go then Electronically signed by Sourav Amato Sweet Dough Mixer 12/27/2024 4:07 PM documented in this encounter Plan of Treatment Upcoming Encounters Date Type Department Care Team (Late st Contact Info) Description 03/27/2025 8:45 AM PDT Orthopedic Office Visit ORTHOPEDICS [address] [place] [phone] David Palacios), M.D. [address] [place] [phone] 04/04/2025 10:00 AM PDT Ancillary Procedure CARDIOLOGY [address] [place] [phone] documented as of this encounter Procedures Procedure Name Priority Date/Time Associated Diagnosis Comments INR Routine 12/28/2024 documented in this encounter Results * INR (12/28/2024) PT INR 1.89 Comment:[facility] [phone] BLOOD BLOOD / Unknown 12/28/2024 Juventino (Pharm.D) Jasper PHARM.DLamar COAGULATION documented in this encounter Visit Diagnoses Not on filedocumented in this encounter Care Teams Laser/Electro Optics Technician Relationship Specialty Start Date End Date Wilmer Ludwig), Dilma. [address] [place] [address] PCP - General Family Practice 01/10/14 documented as of this encounter
--- OUTSIDE RECORDS SUMMARY | 2025-01-28 12:30 | XMS_ITS | Clinical Summary ---
Author Organization [facility] Address [address] [place] [address] Care Team Providers Care Manager Oracle Name Role Phone Wilmer Ludwig M.D., M.D. Primary Care Prov ider Unavailable Source Comments NOTE: The information displayed by Care Everywhere is extracted from the complete medical record and may not identify all current or past patient conditions.[facility] Allergies Active Allergy Reactions Criticality Noted Date Comments Cefuroxime Axetil Skin Rash and/or Hives Low 06/08/2017 Noted with antibiotics given in [place]. Noted with antibiotics given in [place]. Codeine And Opiate Derivatives Skin Rash and/or Hives 07/22/2011 Meperidine Hcl High 08/29/2011 Metronidazole Other 10/20/2024 Nausea, GI upset Hydrochlorothiazide 12/19/2013 Hyponatremia in setting of HCTZ Hyponatremia in setting of HCTZ Meperidine Skin Rash and/or Hives High 08/29/2011 Non-Steroidal Anti-Inflammatory Agents High 02/24/2017 [id number] Heart Failure. Exception to this NSAID intolerance is aspirin 81-325mg daily and topical or ophthalmic nsaids' [id number] Heart Failure. Exception to this NSAID intolerance [...] at bedtime for Glaucoma 10 mL 12 10/05/19 24 026 Active Dorzolamide-Hemal lol (COSOPT) 22.3-6.8 mg/mL Opht DropIndications: BILAT PRIMARY OPEN ANGLE GLAUCOMA Instill 1 Drop in both eyes 2 times a day 20 mL 11 10/05/19 24 026 Active dilTIAZem (CARDIZEM) 30 mg Oral TabIndications:A TRIAL FIBRILLATION, UNSPECIFIED Take 1 tablet by mouth up to 3 times a day as needed atrial fibrillation episodes 100 tablet 3 05/29/20 24 026 Active cloNIDine (CATAPRES-TTS 1) 0.1 mg/24 hr TD Weekly PatchIndications :HTN (HYPERTENSION) Apply 1 Patch to skin every 7 days . Remove old patch before applying the new one 12 Patch 4 06/12/20 24 025 Active Atorvastatin (LIPITOR) 10 mg Oral TabIndications:H YPERLIPIDEMIA Take 1 tablet by mouth daily to lower cholesterol and keep arteries open 100 tablet 3 07/24/19 25 026 Active Warfarin 2 mg Oral TabIndications:A NTICOAGULATION MONITORING, INR 2.0-3.0 Take by mouth as directed by Anticoagulation clinic 150 tablet 07/24/19 25 027 Active dilTIAZem (CARDIZEM CD) 120 mg Oral 24hr SR CapIndications:A TRIAL FIBRILLATION, UNSPECIFIED Take 1 capsule by mouth 2 times a day 200 capsule 2 07/24/19 25 027 Active Carvedilol (COREG) 12.5 mg Oral TabIndications:A TRIAL FIBRILLATION W RAPID VENTRICULAR RESPONSE Take 1 tablet by mouth 2 times a day 100 tablet 3 10/22/19 25 026 Active Amiodarone (PACERONE) 200 mg Oral TabIndications:A TRIAL FIBRILLATION W RAPID VENTRICULAR RESPONSE Take 2 tablets by mouth 2 times a day for 7 days, THEN 1 tablet daily for 60 days. 100 tablet 3 10/22/19 25 026 Active Furosemide (LASIX) 20 mg Oral TabIndications:H TN (HYPERTENSION) Take 1 tablet by mouth daily (Take as needed for lower extremity edema) 100 tablet 01/16/20 25 026 Active Furosemide (LASIX) 20 mg Oral TabIndications:H TN (HYPERTENSION) Take 1 tablet by mouth daily (Take as needed for lower extremity edema) 30 tablet 12/04/19 25 025 Discontinued Furosemide (LASIX) 20 mg Oral TabIndications:H TN (HYPERTENSION) Take 1 tablet by mouth daily (Take as needed for lower extremity edema) 30 tablet 01/08/20 25 025 Discontinued(Co ntinue Therapy) Active Problems Problem Noted Date Diagnosed Date ALF AMIODARONE THERAPY 11/16/2024 SUPRAVENTRICULAR TACHYCARDIA, NONSUSTAINED 10/14 OSTEOARTHRITIS OF RIGHT HIP 08/08/2024 ACQUIRED CEREBRAL ATROPHY 06/20/2023 Overview (06/20/2023): CT Head 05/24/16 OSTEOARTHRITIS OF LEFT FOOT 04/25/2023 ATYPICAL CHEST PAIN 08/26/2022 SHORTNESS OF BREATH 08/26/2022 BILAT OPEN ANGLE GLAUCOMA 08/12/2022 RECURRENT UTI 08/05/2021 ANEMIA 11/06/2020 OSTEOARTHRITIS OF RIGHT FOOT 2020 HX OF ME, UNSPECIFIED TYPE 08/14/2019 NOT CURRENT SMOKER 04/11/2018 [...] 01/04/2013 Overview (01/04/2013): Renal ultrasound 11/02/12 from [place]: 1. Unable [...] Metoprolol changed to carvedilol 10/2012 [place] Start hydrochlorothiazide 12.5 mg [...] Encounters Date Type Department Care Team Description 01/23/2025 Anticoagulation [facility] [address] [place] [address] Juventino Hutchinson (Pharm.D), PHARM.D. 01/07/2025 Refill CARDIOLOGY [address] [place] [address] Francheska Lares)Dilma. Medications 01/07/2025 Call Center Telephon e Encounter CARDIOLOGY [address] [place] [phone] Francheska Lares M.D., M.D. APPOINTMENT REQUEST, ROUTINE ([facility], CARDIOLOGY) 12/30/2024 Anticoagulation [facility] [address] [place] [phone] Juventino Hutchinson (Pharm.D), PHARM.D. 12/13/2024 Anticoagulation [facility] [address] [place] [phone] Noah Dill (Pharm.D), PHARM.D. 11/27/2024 Anticoagulation [facility] [address] [place] [phone] Juventino Hutchinson (Pharm.D), PHARM.D. 11/21/2024 Anticoagulation [facility] [address] [place] [phone] Noah Dill (Pharm.D), PHARM.D. 11/15/2024 11:40 AM PDT Telephone Appointment Visit FAMILY PRACTICE [address] [place] [address] Wilmer Ludwig), MTano. ATRIAL FIBRILLATION, UNSPECIFIED (Primary Dx); HTN; HYPERLIPIDEMIA; PREDIABETES; OSTEOPOROSIS; ATHEROSCLEROSIS AORTA; OSTEOARTHRITIS OF LEFT KNEE; SENILE PURPURA; DIASTOLIC HEART FAILURE, CHRONIC (HFPEF); BILAT PRIMARY OPEN ANGLE GLAUCOMA; OSTEOARTHRITIS OF LEFT HIP; HX OF ME, UNSPECIFIED TYPE; CKD STAGE 3A (GFR 45-59); SUPRAVENTRICULAR TACHYCARDIA, NONSUSTAINED; ANTICOAGULATION MONITORING, INR 2.0-3.0; ANEMIA 11/12/2024 Anticoagulation [facility] [address] [place] [address] [place] [address] Juventino Hutchinson (Pharm.D), PHARM.D. 11/06/2024 3:00 PM PDT Office Visit CARDIOLOGY [address] [place] [address] Melanie Osuna (N.P.), N.P. ATRIAL FIBRILLATION, PAROXYSMAL; HTN; HYPERLIPIDEMIA; PRESENCE OF CARDIAC PACEMAKER 11/05/2024 Anticoagulation [place] [address] Noah Dill (Pharm.D), PHARM.D. 11/04/2024 Telephone FAMILY PRACTICE [address] [place] [address] Wilmer Ludwig), MTano. TEST RESULTS 11/01/2024 Call Center Telephon [place] [address] Francheska Lares M.D., MTano. APPOINTMENT REQUEST, ROUTINE ([facility], CARDIOLOGY) 10/30/2024 Anticoagulation [place] [address] Noah Dill (Pharm.D), PHARM.D. 10/30/2024 Telephone FAMILY PRACTICE [address] [place] [address] Tessy Kerr), M.D. 10/29/2024 Telephone [facility] [place] [address] Shante Anglin (Pharm.D), PHARM.D. PHARMACY ANTICOAGULATION CLINIC SERVICE from Last 3 Months Immunizations Name Administration [...] and over (FLUVIRIN ) (Influenza) 03/10/2015,05/20/2014,04/11/2013 PCV13 ([id number]) (Pneumococ deepali conjugate, 13 valent) 03/10/2015 PPSV23 [...] 8:45 AM PDT Orthopedic Office Visit ORTHOPEDICS [address] [place] [address] David Palacios), MMagdalene [address] [place] [address] 04/04/2025 10:00 AM PDT Ancillary Procedure CARDIOLOGY [address] [place] [address] Health Maintenance Due Date Last Done Comments IMM RSV (75 YRS AND OLDER) ( 1 - 1-dose 75+ series) 2019 IMM INFLUENZA (6 MO AND OLDE R) (#1) 03/03/2025 03/11/2024, 04/14/2023, 04/06/2022, Additional history exists IMM DTAP,TDAP,TD (42 DAYS-12 0 YRS) (5 - Td or Tdap) 08/12/2032 08/12/2022, 08/01/2012, 08/01/2012, Additional history exists IMM PNEUMOCOCCAL Completed 03/10/2015, 07/15/2011 IMM ZOSTER (19 YRS AND OLDER) Completed , 09/25/2018, 08/01/2012 Medical Devices Implanted Type Area Panelboard Operator Device Identifier Shelf Expiration Date Model / Serial / Lot Pacemaker Cardiac .75cm 4.45x5.88cm Accolade Mri Latitude Nxt Pacesafe Easyview 2 [facility] Is - [id number] Implanted:Qt y: 1 on 05/23/2023 by Fanny Jade)Richie Cardiac Implant N/A: Chest BSCI - CARDIAC RHYTHM MGMT [id number] 03/28/2025 [id number] / [id number] / NA Lead Straight Ingevity+ Af Is1 7841 52cm Red - [id number] Implanted:Qt y: 1 on 05/23/2023 by Fanny Jade)Richie Cardiac Implant Right: Ventricle BSCI - CARDIAC RHYTHM MGMT 04/26/2025 [id number] / [id number] / NA Lead Straight Ingevity+ Af Is1 7840 45cm White - [id number] Implanted:Qt y: 1 on 05/23/2023 by Fanny Jade)Richie Cardiac Implant Right: Atrium BSCI - CARDIAC RHYTHM MGMT 04/16/2025 7840 / [id number] / NA Lens Iol +18.5 Sydney Biconvex 13mm 6mm Post Chmbr 1 Pc Foldable Uv Absorb Modif L - [id number] Implanted:Qt y: 1 on 07/17/2014 by Juancarlos Arboleda)Richie Eye Right: Eye [employer] [id number] 04/01/2019 SN60 [id number] / [id number] / Lens Iol +18.5 Sydney Biconvex 13mm 6mm Post Chmbr 1 Pc Foldable Uv Absorb Modif L - [id number] Implanted:Qt y: 1 on 08/12/2014 by Juancarlos Arboleda)Richie Eye Left: Eye [employer] [id number] 10/30/2018 SN60 WF185 / [id number] / Liner Acetabular Altrx Neutral 54mm 36mm Hip - [id number] Implanted:Qt y: 1 on 04/28/2021 by David Palacios M.D., M.D. Orthopedic Left: Hip [employer] [id number] 11/30/2025 [id number] / / [id number] Cup Acetabular 54mm [place] Sector Series Hip - [id number] Implanted:Qt y: 1 on 04/28/2021 by David Palacios)Richie Orthopedic Left: Hip [employer] DEPU[employer] [id number] 11/30/2030 [id number] / / [id number] Stem Fem 160mm 8 06/15 High Offset Taper [place] Hip - [id number] Implanted:Qt y: 1 on 04/28/2021 by David Palacios)Richie Orthopedic Left: Hip [employer] DEPUY [id number] 01/30/2030 [id number] 0 / / [id number] Head Fem +1.5mm Thk6 Mil 06/15 Taper 36mm Hip Cementless Ceramic Articul/Jose - [id number] Implanted:Qt y: 1 on 04/28/2021 by David Palacios)Richie Orthopedic Left: Hip [employer] [id number] 10/30/2025 [id number] / / [id number] Screw Bone 6.5mm 25mm [place] Dome 4 Point Cut Flute Hip Acetabular Cancell Self Tap Hex - [id number] Implanted:Qt y: 1 on 04/28/2021 by David Palacios)Richie Screws/Plate s/Wires Left: Hip [employer] DEPUY [id number] 03/02/2031 [id number] / / [id number] Procedures Procedure Name Priority Date/Time Associated Diagnosis Comments INR Routine 01/06/2025 10:58 PM PDT INR Routine 12/28/2024 INR, FINGER STICK, POCT Routine 12/10/2024 11:28 AM PDT INR Routine 11/22/2024 INR [...] 2:10 PM PDT [facility] FOLLOWING HOSPITALIZATION ELECTROLYTE PANEL (NA, K, CL, CO2) Routine 10/29/2024 12:10 PM PDT AFTERCARE FOLLOWING HOSPITALIZATION from Last 3 Months Results * INR (01/06/2025 10:58 PM PDT) Only the most recent of6 resultswithin the time period is included. PT INR 2.14 Comment:[facility] BLOOD BLOOD / Unknown 01/06/2025 1 0:58 PM PDT Boram (Pharm.D) Jasper PHARM.D. COAGULATION * INR, FINGER STICK, POCT (12/10/2024 11:28 AM PDT) PT INR 2.06 Comment:[facility] [address] [place], [place] [id number] BLOOD 12/10/2024 11:2 8 AM PDT Boram (Pharm.D) Jasper PHARM.D. POCT * POTASSIUM (11/04/2024 8:41 AM PDT) POTASSIUM 4.0 3.5 - 5.1 mEq/L [facility] CLINICAL PATHOLOGY - [facility] Comment: Please review results carefully for any changes to reference ranges (indicated by R superscript). Deployment of new chemistry analyzers is occurring across [facility] through 2026. BLOOD / Unknown 11/04/2024 8 :41 AM PDT Narrative [facility] - 11/04/2024 3:11 PM PDT [facility] ACCN: [id number] Wilmer Ludwig M.D. SERUM CHEM ISTRY [facility] [address] [place] [address] * CREATININE (10/29/2024 12:10 PM PDT) CREATININE 0.87 0.57 - 1.11 mg/dL [facility] Comment: Please review results carefully for any changes to reference ranges (indicated by R superscript). Deployment of new chemistry analyzers is occurring across through 2026. EGFR, CREATININE-BASED FORMULA (CKD-EPI 2020) 67 >=60 mL/min/BSA [facility] Comment: GFR estimate is by [...] Unknown 10/29/2024 1 2:10 PM PDT Narrative [facility] - 10/30/2024 2:29 AM PDT [facility] ACCN: [id number] Tessy Peralta) Usha Quiroz SERUM CH EMISTRY Performing Organization Address [facility] Co de Phone Number [facility], [address] [address] * (ABNORMAL) ELECTROLYTE PANEL (NA, K, CL, CO2) (10/29/2024 12:10 PM PDT) [facility] SODIUM 137 136 - 145 mEq/L [facility], [facility] POTASSIUM 3.0(L) 3.5 - 5.1 mEq/L [facility], [facility] CHLORIDE 101 98 - 113 mEq/L [facility], [facility] CO2 27 23 - 31 mEq/L [facility]ENCE [facility], [facility] Comment: Please review results carefully for any changes to reference ranges (indicated by R superscript). Deployment of new chemistry analyzers is occurring across [facility] through 2026. BLOOD / Unknown 10/29/2024 1 2:10 PM PDT Narrative [facility], [facility] - 10/30/2024 2:29 AM PDT [facility] ACCN: [id number] Tessy Peralta) Usha Quiroz SERUM CH EMISTRY Performing Organization Address [facility] Co de Phone Number [facility], [facility] [id number] [place] [address] * (ABNORMAL) CBC NO DIFFERENTIAL (10/29/2024 12:10 PM PDT) Pathologist [facility] WBC'S AUTO 8.3 4.0 - 11.0 x1000/mcL [facility], [facility] RBC, AUTO 3.75 3.70 - 5.20 Mill/mcL [facility], [facility] HGB 10.6(L) 11.5 - 16.0 g/dL [facility], [facility] HCT, AUTO 32.5(L) 35.0 - 47.0 % [facility]IES, [facility] MCV 86.7 81.0 - 99.0 fL [facility]IES, [facility] PATHOLOGY [facility] MCH 28.3 25.0 - 35.0 pg/cell [facility], [facility] PATHOLOGY [facility] MCHC 32.6 30.0 - 35.0 g/dL [facility], [facility] RDW, BLOOD 14.6 11.5 - 16.0 % [facility] REFERENCE [facility], [facility] PATHOLOGY [facility] PLATELETS, AUTOMATED COUNT 482(H) 130 - 400 x1000/mcL [facility], [facility] BLOOD / Unknown 10/29/2024 1 2:10 PM PDT Narrative [facility], [facility] - 10/30/2024 12:32 AM PDT [facility] ACCN: [id number] Tessy Peralta) Usha Quiroz HEMATOLO GY [facility] Organization Address City/State/ZIP Co de Phone Number [facility], [facility] [address] [place] [address] from Last 3 Months Advance Directives * [...] Release to patient? Immediate Care Teams Manager Oracle Relationship Specialty Start Date End Date Wilmer Ludwig), Richie [address] [place] [address] PCP - General Family Practice 01/10/14
--- OUTSIDE RECORDS SUMMARY | 2025-01-28 12:30 | XMS_ITS | Encounter Summary ---
Author Organization [facility] Address [address] [place] [address] Care Team Providers Care Forepart Reducer Name Role Phone Wilmer Ludwig) MTano. Primary Care Prov ider Unavailable Encounter Details Date Type Department Care Team (Late st Contact Info) Description 01/23/2025 Anticoagulation DEFAULT [facility] [address] [place] [address] Yisel Hutchinson (Pharm.D), PHARM.D. [address] [place] [phone] Social History Tobacco Use Types Packs/Day Years [...] Notes * Yisel Hutchinson (Pharm.D), PHARM.D. - 01/23/2025 10:11 AM PDT Primary Care Physician: Wilmer Ludwig) S/O: Instructed Anticoagulation Academic Advisor/Manager Paid to call patient to check if patient [...] bleeding or bruising Upcoming invasive procedures. INR 2.14 01/06/2025 - INR result from outside lab Indications: Atrial Fibrillation (I48.91) INR Low Range: 2 - INR High Range: 3 Warfarin Tab (MG): 2mg Lavender A/P: INR within therapeutic range Instruct social services assistant to give the following instructions: Warfarin Dosing Instructions: 2mg daily exc 1mg Fri (same as 1 tablet daily exc 1/2 tablet Fri) Follow up date: 01/27/25 - 3 weeks since last INR Messaging Architect/Manager Paid to confirm patient???s understanding of warfarin instruction and ask to repeatback the instruction. Electronically signed by: YISEL HUTCHINSON PHARMD 01/23/2025 10:17 AM documented in this encounter Nursing Notes * Sourav Amato - 01/28/2025 9:50 AM PDT Images from the original note were not included. Patient called to advise that she knows she's due for INR but it cost her $95 everytime to go to [facility] to have INR [facility] she said she will go in January sometime and then will do IN[place] towards the end of the month around the Pharm D advised via teams Patient Verbalized Understand but also stated she can't afford it so shell get in when she can Electronically signed by SOURAV AMATO Boiler Tenders Supervisor 01/28/2025 9:51 AM * Mickey Flores - 01/23/2025 12:34 PM PDT Spoke with patient Patient reports: No change in tablet strength and previous dosing instruction No missing doses No changes in medications (Both prescriptions and OTC such as herbals, vitamins, nutritional supplements) No changes in diet, appetite, alcohol consumption, or physical activity level No changes in health or recent hospital admissions No signs and symptoms of bleeding or bruising No upcoming procedures (including dental work) Patient reported no changes, reminded patient to follow current dosing instruction and next INR date 01/27/25. Electronically signed by MICKEY FLORES Boiler Tenders Supervisor 01/23/2025 12:34 PM documented in this encounter Plan of Treatment Upcoming Encounters Date Type Department Care Team (Late st Contact Info) Description 03/27/2025 8:45 AM PDT Orthopedic Office Visit ORTHOPEDICS [address] [place] [phone] David Palacios), Richie [address] [place] [phone] 04/04/2025 10:00 AM PDT Ancillary Procedure CARDIOLOGY [address] [phone] documented as of this encounter Procedures Procedure Name Priority Date/Time Associated Diagnosis Comments INR Routine 01/06/2025 10:58 PM PDT documented in this encounter Results * INR (01/06/2025 10:58 PM PDT) PT INR 2.14 Comment:[facility] BLOOD BLOOD / Unknown 01/06/2025 1 0:58 PM PDT Yisel (Pharm.D) Jasper PHARM.DLamar COAGULATION documented in this encounter Visit Diagnoses Not on filedocumented in this encounter Care Teams Forepart Reducer Relationship Specialty Start Date End Date Wilmer Ludwig), MTano. [address] [place] [phone] PCP - General Family Practice 01/10/14 documented as of this encounter
--- OUTSIDE RECORDS SUMMARY | 2025-01-28 12:30 | XMS_ITS | Encounter Summary ---
Author Organization [facility] Address [address] [place] [address] Care Team Providers Care Rehabilitation Counselor Name Role Phone Unavailable Primary Care Provider Unavailabl e Prior Encounters Date Type Department Care Team Description 11/16/2023 Travel 11/16/2023 10:00 AM PDT Office Visit [facility] [address] [place] [address] Citlalli Wall [facility] 08/08/2023 Travel 08/08/2023 10:00 AM PST Office Visit [facility] [address] [place] [address] Zeeshan Cartwright DDS 07/22/2019 Converted 13x Documents [facility] [address] [place] [address] <No scans attached> 07/22/2019 Converted CPS Chart Documents [facility] [address] [place] [phone] <No scans attached> Plan of Treatment Not [...] 10 ENDODONTIC THERAPY, PREMOLAR TOOTH (EXCLUDING FINAL TENRIISM) Routine 03/08/2013 12:00 AM PDT 8 ENDODONTIC THERAPY, PREMOLAR TOOTH (EXCLUDING FINAL TENRIISM) Routine 03/08/2013 12:00 AM PDT 5 ENDODONTIC THERAPY, PREMOLAR TOOTH (EXCLUDING FINAL TENRIISM) Routine 03/08/2013 12:00 AM PDT 4 ENDODONTIC THERAPY, PREMOLAR TOOTH (EXCLUDING FINAL TENRIISM) Routine 03/08/2013 12:00 AM PDT 29 ENDODONTIC THERAPY, PREMOLAR TOOTH (EXCLUDING FINAL TENRIISM) Routine 03/08/2013 12:00 AM PDT 29 CROWN [...] PDT Visit Diagnoses Not on file [facility]
--- OUTSIDE RECORDS SUMMARY | 2025-01-28 12:30 | XMS_ITS | Encounter Summary ---
Author Organization [facility] Address [address] [place] [address] Care Team Providers Care Senior Data Scientist Name Role Phone Wilmer Ludwig) Richie Primary Care Prov ider Unavailable Reason for Visit * Reason Comments APPOINTMENT REQUEST, ROUTINE SCC, CARDIO LOGY Encounter Details Date Type Department Care Team (Late st Contact Info) Description 01/07/2025 Call Center Telephone Encounter CARDIOLOGY [id number] [place] [address] Francheska Lares), MMagdalene [address] [place] [address] APPOINTMENT REQUEST, ROUTINE (SCC, CARDIOLOGY) [...] as of this encounter Progress Notes * Kenya Beaulieu (R.N.), R.N. - 01/17/2025 10:16 AM PDT Provided message from Dr Lares to patient. She will attempt to continue taking with apple sauce and see if that helps. She has a follow up with Pavel in April. Can reassess amiodarone at that time. Electronically signed by: KENYA BEAULIEU RN 01/17/2025 10:16 AM * Francheska Lares M.D., M.D. - 01/17/2025 9:33 AM PDT ----- Message from Kenya Beaulieu R.N. sent at 01/17/2025 9:14 AM PDT ----- Patient also asking how long she was going to be on amiodarone? Because she's been having a hard time swallowing them. Did recommend attempting to swallow them with apple sauce instead of just water. Electronically signed by: KENYA BEAULIEU RN 01/17/2025 9:14 AM Please advise patient to continue amiodarone for now. Please schedule follow up with me when she returns from [place] and we can reassess. * Francheska Lares M.D., M.D. - 01/15/2025 8:53 AM PDT Lasix prescription entered. * Lisa Flores R.N., R.N. - 01/14/2025 4:23 PM PDT Called and spoke to patient in December the while to getting ribs and pleural effusion on both sides.was in ER but was sent home. Taking extra str Tylenol 2 tabs 2x a day. With some reflief she is feeling better Currently still in [place] .coming back in March. Requesting refll for Lasix that can last till she come back. Please advise. Thank you. Electronically signed by: LISA FLORES RN 01/14/2025 4:48 PM documented in this encounter Plan of Treatment Upcoming Encounters Date Type Department Care Team (Late st Contact Info) Description 03/27/2025 8:45 AM PDT Orthopedic Office Visit ORTHOPEDICS [address] [place] [phone] David Palacios), M.D. [address] [phone] 04/04/2025 10:00 AM PDT Ancillary Procedure CARDIOLOGY [address] [id number] documented as of this encounter Visit Diagnoses Diagnosis HTN documented in this encounter Care Teams Senior Data Scientist Relationship Specialty Start Date End Date Wilmer Ludwig), MTano. [address] [phone] PCP - General Family Practice 01/10/14 documented as of this encounter
--- OUTSIDE RECORDS SUMMARY | 2025-01-28 12:30 | XMS_ITS | Encounter Summary ---
Author Organization [facility] Address [address] [place] [place] [address] Care Team Providers Care Person Investigator Name Role Phone Wilmer Ludwig) Richie Primary Care Prov ider Unavailable Encounter Details Date Type Department Care Team (Late st Contact Info) Description 01/07/2025 Refill CARDIOLOGY [id number] [place] [address] Francheska Lares M.D., M.D. [address] [place] [address] Medications Social History Tobacco Use Types Packs/Day [...] 8:45 AM PDT Orthopedic Office Visit ORTHOPEDICS [address] [place] [phone] David Palacios), M.[place]am[place]. [address] [place] [phone] 04/04/2025 10:00 AM PDT Ancillary Procedure CARDIOLOGY [address] [id number] documented as of this encounter Visit Diagnoses Diagnosis HTN documented in this encounter Care Teams Person Investigator Relationship Specialty Start Date End Date Wilmer Ludwig), MT[place]. [address] [phone] PCP - General Family Practice 01/10/14 documented as of this encounter
[2025-01-28 12:31] VITALS: BP 178/110; PULSE 62; RESP 18; TEMP 36.4; O2SAT 99; BMI 25.0
--- NOTE | 2025-01-28 12:43 | ED.GENADULT ---
HPI - General Adult General Chief complaint: Unspecified Complaint, Adult Stated complaint: INR Time Seen by Provider: 01/28/25 12:34 History of Present Illness HPI narrative: This 79-year-old female comes in needing to have her INR checked. She is visiting from [place] and did attempt to call the clinic to see if she can get in order to have her INR checked every 2 weeks while she is here. She states that she feels normal. There is no report of bleeding. She does see a deicer tester in [place] at her home and is planning to switch to Pradaxa a when she returns. Related Data Home Medications ?Medication ?Instructions ?Recorded ?Confirmed atorvastatin 10 mg tablet 10 mg PO QDAY 05/12/22 01/28/25 clonidine 0.1 mg/24 hr weekly 1 patch transdermal QWEEK 05/12/22 01/28/25 transdermal patch warfarin 2 mg tablet 2 mg PO QMWF 05/12/22 01/28/25 amiodarone 200 mg tablet 200 mg PO 11/22/24 carvedilol 12.5 mg tablet 12.5 mg PO BID 11/22/24 01/28/25 diltiazem HCl 120 mg 120 mg PO BID 11/22/24 01/28/25 capsule,extended release 24 hr nitrofurantoin 1 cap PO DAILY 11/29/24 01/28/25 monohydrate/macrocrystals 100 mg capsule furosemide 20 mg tablet 20 mg PO DAILY 12/10/24 01/28/25 Allergies Allergy/AdvReac Type Severity Reaction Status Date / Time aspirin (From Percodan) Allergy Intermediate really Verified 01/28/25 12:36 sick and pass out oxycodone (From Percodan) Allergy Intermediate really Verified 01/28/25 12:36 sick and pass out Penicillins Allergy Intermediate vomiting Verified 01/28/25 12:36 Sulfa (Sulfonamide Allergy Intermediate vomiting Verified 01/28/25 12:36 Antibiotics) Review of Systems Status of ROS: Reports: 10 or more systems reviewed and unremarkable except as noted in History and below Narrative: Constitutional: No fevers, no weight gain or loss. Eyes: No discharge. No vision changes. HENT: No congestion, no sore throat, no ear pain. Cardiovascular: No chest pain, no palpitations. Respiratory: No shortness of breath, no wheezes, no cough. Gastrointestinal: No abdominal pain, no vomiting, no diarrhea. Genitourinary: No dysuria, no hematuria. Musculoskeletal: Normal range of motion. Skin: No rashes, no pruritis. Neurological: No dizziness, weakness, sensory change, speech change. Endo/Heme/Allergies: No bruising or bleeding. No polydipsia. Pysch: no suicidality, no anxiety, no insomnia. All other systems reviewed and are negative. [facility] Medical History Seasonal allergies ?J30.2 - Other seasonal allergic rhinitis (ICD-10) Social History Smoking Status: Never smoker Do you use any of these nicotine containing products: None Second hand tobacco smoke exposure: No How often do you have a drink containing alcohol: monthly or less AUDIT-C Alcohol total score: 1 Non-prescribed substance use: denies use Exam Narrative: Exam Narrative: Constitutional: Well-developed, well-nourished, no acute distress. HEENT: Normocephalic, atraumatic. Neck: Normal range of motion. Nontender. Supple. Heart: Intact distal pulses. Lungs: No chest discomfort. No wheezes, rhonchi, or rales. Abdomen: Nontender. Back: Normal range of motion. Extremities: Normal range of motion. No injury. Skin: Intact. No rash. Warm. No erythema or pallor. Neurologic: No altered sensation. No weakness. Alert and oriented. Psychiatric: No suicidality. No anxiety or depression. No insomnia. Nursing notes and vitals signs are reviewed. Const: Vital Signs, click to edit/add: Vital Signs - 24 hr 01/28/25 12:31 Temperature 97.6 F Pulse Rate [Pulse Oximeter] 62 Respiratory Rate 18 Blood Pressure [Ri ght Upper Arm] 178/110 H Pulse Oximetry 99 Oxygen Delivery Me thod Room Air Course Vital Signs Vital signs: Initial Vital Signs Temperature 97.6 F 01/28/25 12:31 Temperature Source Temporal Artery Scan 01/28/25 12:31 Pulse Rate 62 01/28/25 12:31 Respiratory Rate 18 01/28/25 12:31 Blood Pressure 178/110 H 01/28/25 12:31 Blood Pressure Mean 132 H 01/28/25 12:31 Pulse Oximetry 99 01/28/25 12:31 Oxygen Delivery Method Room Air 01/28/25 12:31 Vital Signs Temperature 97.6 F 01/28/25 12:31 Pulse Rate 62 01/28/25 12:31 Respiratory Rate 18 01/28/25 12:31 Blood Pressure 178/110 H 01/28/25 12:31 Pulse Oximetry 99 01/28/25 12:31 Oxygen Delivery Method Room Air 01/28/25 12:31 Temperature 97.6 F 01/28/25 12:31 Pulse Rate 62 01/28/25 12:31 Respiratory Rate 18 01/28/25 12:31 Blood Pressure 178/110 H 01/28/25 12:31 Pulse Oximetry 99 01/28/25 12:31 Oxygen Delivery Method Room Air 01/28/25 12:31 Medical Decision Making MDM Narrative Medical decision making narrative: This patient comes in stating that she needs to have her INR checked every 2 weeks while here. I did find information in her chart in regard to this. She is in a different insurance arrangement and understands that it may not be covered for her INR checks. She came to the ER today because clinic was unable to help her apparently. I did check INR today and results are pending. The patient feels normal. I did write a order for lab visit to occur every 2 weeks roughly for the next 3 or 4 visits to have her INR checked. Results can be faxed to the number listed on the order. Discharge Plan Discharge Clinical Impression: Encounter for anticoagulation monitoring with international normalized ratio (INR) goal of 1.5-2.5 Patient Disposition: Home, Self-Care Condition: Stable Additional Instructions: Return to lab every 2 weeks for the next 3 or 4 visits to recheck INR. Follow up with MD return if worsening. Prescriptions: No Action warfarin 2 mg tablet 2 mg PO QMWF atorvastatin 10 mg tablet 10 mg PO QDAY clonidine 0.1 mg/24 hr patch weekly 1 patch transdermal QWEEK nitrofurantoin monohyd/m-cryst 100 mg capsule 1 cap PO DAILY carvedilol 12.5 mg tablet 12.5 mg PO BID amiodarone 200 mg tablet 200 mg PO diltiazem HCl 120 mg capsule,extended release 24hr 120 mg PO BID furosemide 20 mg tablet 20 mg PO DAILY Follow Up/Referrals: Bossman Garcia MD [Primary Care Provider, Internal Medicine] Stand Alone Forms: Bloominous Info Instructions
[2025-01-28 13:51] LABS: INR 2.25 (0.91-1.10); Prothrombin Time 26.0 Seconds
--- NOTE | 2025-01-28 14:09 | ED.NURSE ---
Reviewed lab result. Patient states the ability to get result to her provider today. Will attempt to do lab visit as out patient going further.
== END 2025-01-28 14:11 | disposition home or self-care (01) ==
PROVIDERS: Emergency Provider Emergency Medicine Emergency Medical Services; PCP Internal Medicine
DX: Z51.81 Encounter for therapeutic drug level monitoring (principal)
CPT/HCPCS: 36415; 85610; 99282; 99283; 99284